=== PATIENT | male | born 1950 | race Caucasian/White ===

== ENCOUNTER 2018-05-10 16:35 | Inpatient (IN) | payer OTHER ==
--- NOTE | 2018-05-10 17:22 | PDOC ---
Attending Attestation - HPI HPI: 05/10/18 18:00 The patient is a 67 year old female, with a significant past medical history of AFib (off of Warfarin for the past week), CVA (x3 last was a hemorrhagic stroke 1 week ago with right sided deficits), DM, neuropathy, who presents to the emergency department via EMS from [facility] s/p fall. As per patients sister, he had a hemorrhagic stroke one week ago and was transferred from his care in [place], [place] to [facility]. While at the detention, patients sister notes he fell out of his wheelchair, hitting his head. While in the ED, the patient is behaving at his baseline, answering simple yes or no questions. Allergies: NKA Past surgical history: Valve replacement (?aortic bovine). Primary Care Physician: [facility] - Physicial Exam PE: 05/10/18 18:00 Constitutional: Awake, alert, oriented. No acute distress. Head: Normocephalic. Atraumatic Eyes: PERRL. EOMI. Conjunctivae are not pale. ENT: Mucous membranes are moist and intact. Posterior pharynx without exudates or erythema. Uvula midline. Neck: Supple. Full ROM. No lymphadenopathy. +Cardiovascular: Irregularly, irregular. Murmur from valve replacement. Pulmonary/Chest: No evidence of respiratory distress. Clear to auscultation bilaterally No wheezing, rales or rhonchi. Abdominal: Soft and non-distended. There is no tenderness. No rebound, guarding or rigidity. No organomegaly. No palpable masses. Good bowel sounds. Back: No CVA tenderness. Musculoskeletal: No edema. No cyanosis. No clubbing. No calf tenderness. Radial/pedal pulses are intact and 2+ bilaterally +Skin: Well healing sternotomy scar, without notable erythema or purulent discharge. Skin is warm and dry. No petechiae. No purpura. +Neurological: Behaving at baseline since CVA. Alert and oriented to person and place, Weakness greater in the right lower extremity than left lower extremity. Paralysis to the right upper extremity. Expressive aphasia. Able to answer basic questions. Psychiatric: Good eye contact. Normal interaction, affect and behavior. <Jai Ayon - Last Filed: 05/10/18 18:25> - Resident Resident Name: Kendall Henry - ED Attending Attestation I have performed the following: I have examined & evaluated the patient, The case was reviewed & discussed with the resident, I agree w/resident's findings & plan, Exceptions are as noted - Critical Care Time Total Critical Care Time: 45 Critical Care Statement: The care of this patient involved high complexity decision making to prevent further life threatening deterioration of the patient 's condition and/or to evaluate & treat vital organ system(s) failure or risk of failure. - Medical Decision Making 05/10/18 17:21 I, Dr. Anjali Crisostomo, DO, attest that this document has been prepared under my direction and personally reviewed by me in its entirety. I further attest, that it accurately reflects all work, treatment, procedures and medical decision -making performed by me. 05/10/18 17:33 a/p: 67yo male with recent intracranial hemorrhage and hx of CAD/CABG/valve replacement and hx of cva in the past presents after a fall out of his wheelchair -sister at the bedside who states pt at baseline ms -no new neuro symptoms -pt denies cp/sob -denies abd pain -no mendez -no n/v/d/dysuria -pt with difficulty with speech, weakness to b/l LE R>L, FROM of LUE, paralysis of RUE -will send for head ct to [facility] for closed head injury -will send labs -ekg -cxr -ua -will monitor and reassess -discussed the plan with the sister who agrees with the plan 05/10/18 19:[address] shows blood - call placed to [facility] to obtain prior ct results to compare call placed to Dr. Phoenix- case discussed who recommends involving neurosx 05/10/18 19:[address] Valenzuela who will review the images and call us back 05/10/18 19:25 case again discussed with Dr Valenzuela who recommends MRI brain for poss mass underlying pt also with QI - prior cr 1 week ago was 0.77 will admit for ivf hdyraiton, neurosx eval and neur eval microblog sent to [facility] 05/10/18 20:41 resident discussed the case with [facility] who accepts pt to service <Anjali Crisostomo - Last Filed: 05/10/18 20:42> Heart Score/ECG Review - ECG Intrepretation Comment:: 05/10/18 17:21 afib at 86, nl axis, t wave inversions lateral leads and i/avl, abnl ekg <Anjali Crisostomo - Last Filed: 05/10/18 20:42> Attestations - Attestations 05/10/18 18:03 Documentation prepared by Jai Ayon, acting as medical staff services coordinator for Anjali Crisostomo DO. <Jai Ayon - Last Filed: 05/10/18 18:25>
--- NOTE | 2018-05-10 17:28 | PDOC ---
History of Present Illness - General Chief Complaint: Injury Stated Complaint: FALL Time Seen by Provider: 05/10/18 17:05 - History of Present Illness Initial Comments: The patient is a 67M w/ a recent history of hemorrhagic stroke 1 week ago as well as recent heart valve replacement (bovine) who presents for evaluation s/p fall from recliner today at [facility]. The patient's sister reports that the patient has residual aphasia (only able to say yes/no) and R sided weakness. Per the sister, the patient says yes to most questions and may not mean yes; however, when the patient says no, it is more often accurate. The sister reports that since the time of the CVA and now 05/10/18 22:05 Past History - Past Medical History Allergies/Adverse Reactions: Allergies Allergy/AdvReac Type Severity Reaction Status Date / Time No Known Drug Allergies Allergy Verified 05/10/18 17:18 Home Medications: Ambulatory Orders Acetaminophen 650 mg PO Q6H PRN 05/10/18 Albuterol 2.5/Ipratropium 0.5 [Duoneb -] 1 neb IH QID 05/10/18 Amlodipine Besylate [Norvasc -] 10 mg PO DAILY 05/10/18 Aspirin [Aspirin EC] 81 mg PO DAILY 05/10/18 Atorvastatin Ca [Lipitor] 80 mg PO HS 05/10/18 Calcium Carbonate [Calcium Antacid] 300 mg PO Q6H PRN 05/10/18 Chlorhexidine Gluconate [Peridex -] 15 ml MM BID 05/10/18 Docusate Sodium [Colace] 100 mg PO TID 05/10/18 Ferrous Sulfate 325 mg PO BID 05/10/18 Furosemide [Lasix] 40 mg PO DAILY 05/10/18 Insulin Glargine,Hum.rec.anlog [Lantus Solostar] 40 unit SQ HS 05/10/18 Insulin Lispro [Humalog] 0 unit SQ TIDCM PRN 05/10/18 Labetalol HCl 300 mg PO TID 05/10/18 Lisinopril [Prinivil] 20 mg PO DAILY 05/10/18 Magnesium Hydroxide [Milk of Magnesia] 30 ml PO HS PRN 05/10/18 Melatonin 3 mg PO HS PRN 05/10/18 Nicotine [Nicotine Patch 7 mg/24 hr] 1 each TD DAILY 05/10/18 Oxycodone HCl 5 mg PO Q4H PRN 05/10/18 Pantoprazole Sodium 40 mg PO DAILY 05/10/18 Polyethylene Glycol 3350 [Miralax (For Daily Use) -] 17 gm PO DAILY 05/10/18 Pregabalin [Lyrica -] 50 mg PO DAILY 05/10/18 Simethicone 80 mg PO QID PRN 05/10/18 Sodium Chloride [Saline Mist] 2 sprays NS BID 05/10/18 Tramadol HCl 50 mg PO Q6H PRN 05/10/18 Zinc Oxide 20% Topical Oint 0 gm NR BID 05/10/18 Anemia: Yes (iron deficiecy) COPD: No CHF: No Diabetes: Yes GI Disorders: Yes (gerd) HTN: Yes Other medical history: chronic gingivitis. nicotine dependence, dermatitis - Suicide/Smoking/Psychosocial Hx Smoking History: Never smoked Have you smoked in the past 12 months: No Information on smoking cessation initiated: No Hx Alcohol Use: No Drug/Substance Use Hx: No Substance Use Type: None Review of Systems - Review of Systems Able to Perform ROS?: No (aphasia) Is the patient limited Indonesian proficient: No *Physical Exam - Vital Signs Last Vital Signs Temp Pulse Resp BP Pulse Ox 97.6 F 73 16 115/68 95 05/10/18 16:38 05/10/18 16:38 05/10/18 16:38 05/10/18 16:38 05/10/18 16:38 - Physical Exam Comments: GENERAL: Awake, alert, and fully oriented, in no acute distress HEAD: No signs of trauma, normocephalic, atraumatic EYES: PERRLA, EOMI, sclera anicteric, conjunctiva clear ENT: Hearing grossly normal, nares patent, oropharynx clear without exudates. Moist mucosa NECK: Normal ROM, supple LUNGS: No distress, speaks full sentences, clear to auscultation bilaterally HEART: Regular rate and rhythm, normal S1 and S2, no murmurs, rubs or gallops, peripheral pulses normal and equal bilaterally ABDOMEN: Soft, nontender, normoactive bowel sounds. No guarding, no rebound EXTREMITIES : Normal inspection, Normal range of motion, no edema. No clubbing or cyanosis NEUROLOGICAL: Cranial nerves II through XII grossly intact. Normal speech, normal gait, no focal sensorimotor deficits SKIN: Warm, Dry, normal turgor, no rashes or lesions noted 05/10/18 18:18 ED Treatment Course - LABORATORY CBC & Chemistry Diagram: 05/11/18 06:20 05/11/18 06:20 - RADIOLOGY Radiology Studies Ordered: Category Date Time Status HEAD CT WITHOUT CONTRAST [CT] Stat CT Scan 05/10/18 17:18 Ordered CHEST X-RAY PORTABLE* [RAD] Stat Radiology 05/10/18 17:18 Ordered Medical Decision Making - Medical Decision Making The patient is a 67M w/ a history of hemorragic stroke 1 wk ago, s/p recent valve replacement, who presents for evaluation s/p fall from recliner today at [facility] Patient w/ residual R weakness s/p stroke CMP, CBC, T/s, Coags, Lactate CT head w/o Patient currently able to answer yes/no. Per patient family patient responds yes frequently, but when he responds no it is generally a true no 05/10/18 17:26 Cr 2.0, likely QI No leukocytosis lytes wnl Hypglyemic 226 Lactate 1.[address] head still pending 05/10/18 18:22 CT w/ evidence if ICH, possible non-acute 05/10/18 18:50 Consult to Neurology and NSGY placed Plan for admission Will obtain MRI per NSGY 05/10/18 19:55 Spoke w/ sister of patient Marie Feldman to fill out MRI questionaire/consent 05/10/18 20:24 Dispo: Admit *DC/Admit/Observation/Transfer Diagnosis at time of Disposition: Intracranial bleed Fall Qualifiers: Encounter type: initial encounter Qualified Code(s): W19.XXXA - Unspecified fall, initial encounter - Discharge Dispostion Condition at time of disposition: Guarded Decision to Admit order: Yes - Referrals - Patient Instructions - Post Discharge Activity
[2018-05-10 17:36] LABS: HEMATOCRIT 33.1 % (35.4-49); MCH 27.7 pg (25.7-33.7); MCHC 33.1 g/dl (32.0-35.9); MEAN CELL VOLUME 83.8 fl (80-96); MEAN PLT VOLUME 9.5 fl (7.5-11.1); PLATELET COUNT 214 K/MM3 (134-434); RBC 3.95 M/mm3 (4.00-5.60); RDW 14.4 % (11.9-15.9); WHITE BLOOD COUNT 6.2 K/mm3 (4.0-10.0)
[2018-05-10 17:55] LABS: INR 1.06 (0.83-1.09); PROTHROMBIN TIME (PATIENT) 12.5 SEC (9.7-13.0)
[2018-05-10 17:58] LABS: ACTIVATED PTT 26.2 SECONDS (25.2-36.5)
[2018-05-10 18:08] LABS: ALK PHOS 164 U/L (45-117); ANION GAP 9 MMOL/L (8-16); BILIRUBIN,TOTAL 0.4 mg/dL (0.2-1); BLOOD UREA NITROGEN 56 mg/dL (7-18); CALCIUM 8.8 mg/dL (8.5-10.1); CHLORIDE 102 mmol/L (98-107); CO2 26 mmol/L (21-32); GLUCOSE,RANDOM 226 mg/dL (74-106); POTASSIUM 4.8 mmol/L (3.5-5.1); SGOT/AST 34 U/L (15-37); SGPT/ALT 26 U/L (13-61); SODIUM 136 mmol/L (136-145); TOT PROT 6.4 g/dl (6.4-8.2)
[2018-05-10] MEDS ORDERED: SODIUM CHLORIDE 0.9% 500 ML INFUS.BAG IV ONE (19:28)
--- NOTE | 2018-05-10 20:35 | HP ---
CHIEF COMPLAINT: PCP: HISTORY OF PRESENT ILLNESS: This is a 67 year old male, from [facility] with a significant past medical history of AFib (off of Warfarin for the past week), CVA (x3 last was a hemorrhagic stroke 1 week ago with right sided deficits), DM, Neuropathy. Who presents to the ED via EMS s/p fall. Patient is lethargic unable to provide HPI. Per the ED record: As per patients sister, he had a hemorrhagic stroke one week ago and was transferred from his care in [place], [place] to [facility]. While at the [facility], patients sister notes he fell out of his wheelchair, hitting his head. While in the ED, the patient is behaving at his baseline, answering simple yes or no questions. ER course was notable for: (1) CT Head- small amount of acute blood within the occipital horn of the left ventricle. Several acute/subacute left occipital cortical infarcts noted medially, a right parieto-occipital cortical infarct seen medially may be subacute or chronic. No extra-axial fuid collection. no gross soft tissue mass lesion, no obstructive hydrocephalus (2) BUN 56, Cr 2 (3) Glucose 226 Recent Travel: None PAST MEDICAL HISTORY: See HPI PAST SURGICAL HISTORY: Valve replacement (?aortic bovine). Social History: Smoking: unknown Alcohol: unknown Drugs: unnknown Resides at [facility], Family History: Unable to obtain Allergies No Known Drug Allergies Allergy (Verified 05/10/18 17:18) HOME MEDICATIONS: Home Medications Medication Instructions Recorded Acetaminophen 650 mg PO Q6H PRN 05/10/18 Albuterol 2.5/Ipratropium 0.5 1 neb IH QID 05/10/18 [Duoneb -] Amlodipine Besylate [Norvasc -] 10 mg PO DAILY 05/10/18 Aspirin [Aspirin EC] 81 mg PO DAILY 05/10/18 Atorvastatin Ca [Lipitor] 80 mg PO HS 05/10/18 Calcium Carbonate [Calcium Antacid] 300 mg PO Q6H PRN 05/10/18 Chlorhexidine Gluconate [Peridex -] 15 ml MM BID 05/10/18 Docusate Sodium [Colace] 100 mg PO TID 05/10/18 Ferrous Sulfate 325 mg PO BID 05/10/18 Furosemide [Lasix] 40 mg PO DAILY 05/10/18 Insulin Glargine,Hum.rec.anlog 40 unit SQ HS 05/10/18 [Lantus Solostar] Insulin Lispro [Humalog] 0 unit SQ TIDCM PRN 05/10/18 Labetalol HCl 300 mg PO TID 05/10/18 Lisinopril [Prinivil] 20 mg PO DAILY 05/10/18 Magnesium Hydroxide [Milk of 30 ml PO HS PRN 05/10/18 Magnesia] Melatonin 3 mg PO HS PRN 05/10/18 Nicotine [Nicotine Patch 7 mg/24 1 each TD DAILY 05/10/18 hr] Oxycodone HCl 5 mg PO Q4H PRN 05/10/18 Pantoprazole Sodium 40 mg PO DAILY 05/10/18 Polyethylene Glycol 3350 [Miralax 17 gm PO DAILY 05/10/18 (For Daily Use) -] Pregabalin [Lyrica -] 50 mg PO DAILY 05/10/18 Simethicone 80 mg PO QID PRN 05/10/18 Sodium Chloride [Saline Mist] 2 sprays NS BID 05/10/18 Tramadol HCl 50 mg PO Q6H PRN 05/10/18 Zinc Oxide 20% Topical Oint 0 gm NR BID 05/10/18 REVIEW OF SYSTEMS Lethargic- Unresponsive CONSTITUTIONAL: Absent: fever, chills, diaphoresis, generalized weakness, malaise, loss of appetite, weight change HEENT: Absent: rhinorrhea, nasal congestion, throat pain, throat swelling, difficulty swallowing, mouth swelling, ear pain, eye pain, visual changes CARDIOVASCULAR: Absent: chest pain, syncope, palpitations, irregular heart rate, lightheadedness , peripheral edema RESPIRATORY: Absent: cough, shortness of breath, dyspnea with exertion, orthopnea, wheezing, stridor, hemoptysis GASTROINTESTINAL: Absent: abdominal pain, abdominal distension, nausea, vomiting, diarrhea, constipation, melena, hematochezia GENITOURINARY: Absent: dysuria, frequency, urgency, hesitancy, hematuria, flank pain, genital pain MUSCULOSKELETAL: Absent: myalgia, arthralgia, joint swelling, back pain, neck pain SKIN: Absent: rash, itching, pallor HEMATOLOGIC/IMMUNOLOGIC: Absent: easy bleeding, easy bruising, lymphadenopathy, frequent infections ENDOCRINE: Absent: unexplained weight gain, unexplained weight loss, heat intolerance, cold intolerance NEUROLOGIC: Absent: headache, focal weakness or paresthesias, dizziness, unsteady gait, seizure, mental status changes, bladder or bowel incontinence PSYCHIATRIC: Absent: anxiety, depression, suicidal or homicidal ideation, hallucinations. PHYSICAL EXAMINATION Vital Signs - 24 hr 05/10/18 05/10/18 16:38 19:41 Temperature 97.6 F Pulse Rate 73 Respiratory 16 Rate Blood Pressure 115/68 O2 Sat by Pulse 95 95 Oximetry (%) GENERAL: Lethargic, appears in no acute distress. HEAD: Normal with no signs of trauma. EYES: Pupils equal, round and reactive to light, sclera anicteric, conjunctiva clear. No lid lag. EARS, NOSE, THROAT: Ears normal, nares patent, oropharynx clear without exudates. Dry mucous membranes. NECK: Normal range of motion, supple without lymphadenopathy, JVD, or masses. LUNGS: Breath sounds coarse rhonchi to upper lobes. No wheezes, No accessory muscle use. HEART: Irregular rate and rhythm, systolic murmur, normal S1 and S2.No rub or gallop. ABDOMEN: Soft, nontender, not distended, normoactive bowel sounds, no guarding, no rebound, no masses. No hepatomegaly or splenomegaly. MUSCULOSKELETAL: Normal range of motion at all joints. No bony deformities or tenderness. No CVA tenderness. UPPER EXTREMITIES: 2+ pulses, warm, well-perfused. No cyanosis. No clubbing. No peripheral edema. LOWER EXTREMITIES: 2+ pulses, warm, well-perfused. No calf tenderness. No peripheral edema. NEUROLOGICAL: Cranial nerves II-XII intact. lethargic speech not assessed. gait not observed. PSYCHIATRIC: Lethargic. unable to assess baseline. SKIN: Warm, dry, normal turgor, no rashes or lesions noted, normal capillary refill. Laboratory Results - last 24 hr 05/10/18 05/10/18 05/10/18 16:15 16:15 16:15 WBC 6.2 RBC 3.95 L Hgb 11.0 L Hct 33.1 L MCV 83.8 MCH 27.7 MCHC 33.1 RDW 14.4 Plt Count 214 MPV 9.5 PT with INR 12.50 INR 1.06 PTT (Actin FS) 26.2 Sodium 136 Potassium 4.8 Chloride 102 Carbon Dioxide 26 Anion Gap 9 BUN 56 H Creatinine 2.0 H Creat Clearance w eGFR 33.49 Random Glucose 226 H Lactic Acid Calcium 8.8 Total Bilirubin 0.4 AST 34 ALT 26 Alkaline Phosphatase 164 H Total Protein 6.4 Albumin 3.0 L Blood Type Antibody Screen 05/10/18 05/10/18 16:15 16:55 WBC RBC Hgb Hct MCV MCH MCHC RDW Plt Count MPV PT with INR INR PTT (Actin FS) Sodium Potassium Chloride Carbon Dioxide Anion Gap BUN Creatinine Creat Clearance w eGFR Random Glucose Lactic Acid 1.2 Calcium Total Bilirubin AST ALT Alkaline Phosphatase Total Protein Albumin Blood Type A POSITIVE Antibody Screen Negative ASSESSMENT/PLAN: 67 y/o man Admitted to Telemetry s/p Fall, Acute blood in left ventricle, Acute/ Subacute Cortical Infarcts for further evaluation of their emergent condition. Plan: Admit to Telemetry Appreciate Neurosurgery and Neurology consults Brain MRI-pending HOB elevated 30 degrees Fall precautions Monitor CBC, BMP Visit type - Emergency Visit Emergency Visit: Yes ED Registration Date: 05/10/18 Care time: The patient presented to the Emergency Department on the above date and was hospitalized for further evaluation of their emergent condition. - New Patient This patient is new to me today: Yes Date on this admission: 05/10/18 - Critical Care Critical Care patient: No
[2018-05-11 06:51] LABS: HEMATOCRIT 30.3 % (35.4-49); MCH 27.3 pg (25.7-33.7); MCHC 32.9 g/dl (32.0-35.9); MEAN CELL VOLUME 82.8 fl (80-96); MEAN PLT VOLUME 9.1 fl (7.5-11.1); MONO % 9.2 % (3.8-10.2); NEUT % 62.8 % (42.8-82.8); PLATELET COUNT 173 K/MM3 (134-434); RBC 3.66 M/mm3 (4.00-5.60); RDW 13.8 % (11.9-15.9); WHITE BLOOD COUNT 7.2 K/mm3 (4.0-10.0)
[2018-05-11 07:08] LABS: ANION GAP 7 MMOL/L (8-16); BLOOD UREA NITROGEN 46 mg/dL (7-18); CALCIUM 8.5 mg/dL (8.5-10.1); CHLORIDE 110 mmol/L (98-107); CO2 24 mmol/L (21-32); CREATININE 1.1 mg/dL (0.55-1.3); GLUCOSE,RANDOM 135 mg/dL (74-106); POTASSIUM 4.2 mmol/L (3.5-5.1); SODIUM 141 mmol/L (136-145)
--- NOTE | 2018-05-11 08:54 | CON.NEURO ---
Consult - Alcohol/Substance Use Hx Alcohol Use: No - Smoking History Smoking history: Never smoked Have you smoked in the past 12 months: No Home Medications - Allergies Allergies/Adverse Reactions: Allergies Allergy/AdvReac Type Severity Reaction Status Date / Time No Known Drug Allergies Allergy Verified 05/10/18 17:18 - Home Medications Home Medications: Ambulatory Orders Acetaminophen 650 mg PO Q6H PRN 05/10/18 Albuterol 2.5/Ipratropium 0.5 [Duoneb -] 1 neb IH QID 05/10/18 Amlodipine Besylate [Norvasc -] 10 mg PO DAILY 05/10/18 Aspirin [Aspirin EC] 81 mg PO DAILY 05/10/18 Atorvastatin Ca [Lipitor] 80 mg PO HS 05/10/18 Calcium Carbonate [Calcium Antacid] 300 mg PO Q6H PRN 05/10/18 Chlorhexidine Gluconate [Peridex -] 15 ml MM BID 05/10/18 Docusate Sodium [Colace] 100 mg PO TID 05/10/18 Ferrous Sulfate 325 mg PO BID 05/10/18 Furosemide [Lasix] 40 mg PO DAILY 05/10/18 Insulin Glargine,Hum.rec.anlog [Lantus Solostar] 40 unit SQ HS 05/10/18 Insulin Lispro [Humalog] 0 unit SQ TIDCM PRN 05/10/18 Labetalol HCl 300 mg PO TID 05/10/18 Lisinopril [Prinivil] 20 mg PO DAILY 05/10/18 Magnesium Hydroxide [Milk of Magnesia] 30 ml PO HS PRN 05/10/18 Melatonin 3 mg PO HS PRN 05/10/18 Nicotine [Nicotine Patch 7 mg/24 hr] 1 each TD DAILY 05/10/18 Oxycodone HCl 5 mg PO Q4H PRN 05/10/18 Pantoprazole Sodium 40 mg PO DAILY 05/10/18 Polyethylene Glycol 3350 [Miralax (For Daily Use) -] 17 gm PO DAILY 05/10/18 Pregabalin [Lyrica -] 50 mg PO DAILY 05/10/18 Simethicone 80 mg PO QID PRN 05/10/18 Sodium Chloride [Saline Mist] 2 sprays NS BID 05/10/18 Tramadol HCl 50 mg PO Q6H PRN 05/10/18 Zinc Oxide 20% Topical Oint 0 gm NR BID 05/10/18 Physical Exam-Neuro Vital Signs: Vital Signs Temperature 98.0 F 05/11/18 04:28 Pulse Rate 85 05/11/18 04:28 Respiratory Rate 20 05/11/18 04:28 Blood Pressure 118/65 05/11/18 04:28 O2 Sat by Pulse Oximetry (%) 95 05/11/18 04:28 Labs: CBC, BMP 05/11/18 06:20 05/11/18 06:20 INR, PTT INR 1.06 (0.83-1.09) 05/10/18 16:15 Assessment/Plan cc Recent hemorrhage and fall from Wheel chair HPI 67 year old male history of DM, Neuropathy, had recent brainbleed, he also have history of atrial fibrillation. Patient fell out of wheel chair. Patient is sleepy today, there is no documentation of seizure or fever. He has ct scan done showed left basal ganglia bleed and old right parietal lobe infarct. Patient is not waking up when I saw him. He would say , yes and no to nursing earlier and started to cry. Past Medical History Valve replacement (?aortic bovine). DM, HTN, Brain bleed and old stroke Social History, FH, ROS reviewed in chart No Known Drug Allergies Allergy (Verified 05/10/18 17:18) HOME MEDICATIONS: Home Medications Medication Instructions Recorded Acetaminophen 650 mg PO Q6H PRN 05/10/18 Albuterol 2.5/Ipratropium 0.5 1 neb IH QID 05/10/18 [Duoneb -] Amlodipine Besylate [Norvasc -] 10 mg PO DAILY 05/10/18 Aspirin [Aspirin EC] 81 mg PO DAILY 05/10/18 Atorvastatin Ca [Lipitor] 80 mg PO HS 05/10/18 Calcium Carbonate [Calcium Antacid] 300 mg PO Q6H PRN 05/10/18 Chlorhexidine Gluconate [Peridex -] 15 ml MM BID 05/10/18 Docusate Sodium [Colace] 100 mg PO TID 05/10/18 Ferrous Sulfate 325 mg PO BID 05/10/18 Furosemide [Lasix] 40 mg PO DAILY 05/10/18 Insulin Glargine,Hum.rec.anlog 40 unit SQ HS 05/10/18 [Lantus Solostar] Insulin Lispro [Humalog] 0 unit SQ TIDCM PRN 05/10/18 Labetalol HCl 300 mg PO TID 05/10/18 Lisinopril [Prinivil] 20 mg PO DAILY 05/10/18 Magnesium Hydroxide [Milk of 30 ml PO HS PRN 05/10/18 Magnesia] Melatonin 3 mg PO HS PRN 05/10/18 Nicotine [Nicotine Patch 7 mg/24 1 each TD DAILY 05/10/18 hr] Oxycodone HCl 5 mg PO Q4H PRN 05/10/18 Pantoprazole Sodium 40 mg PO DAILY 05/10/18 Polyethylene Glycol 3350 [Miralax 17 gm PO DAILY 05/10/18 (For Daily Use) -] Pregabalin [Lyrica -] 50 mg PO DAILY 05/10/18 Simethicone 80 mg PO QID PRN 05/10/18 Sodium Chloride [Saline Mist] 2 sprays NS BID 05/10/18 Tramadol HCl 50 mg PO Q6H PRN 05/10/18 Zinc Oxide 20% Topical Oint 0 gm NR BID 05/10/18 Neurological Examination( Limited Neuro exam) sleepy, and have been open his eye to commnad, but would not engage in talking. ( earlier morning he was answering yes and no to nurses and started crying) His vital is normal, no neck stiffness pupils is reactive, small, mild right facial palsy right sided hemiparesis ct head reviewed Assessment: left basal ganglia bleed with intra ventricular extension. Patient was in NH was brought because of fall. There is no evidence of seizure or meningitis. Dr Hickman ( Neurosurgery ) is on case. Plan: 1. I would repeat a urgent ct head 2. Urgent Neurosurgery consult, if not seen patient need to be monitored in ICU 3. Spoke to nursing 4. I would also obtain and eeg for subclinical status 5. npo, speech consult 6. continue current care Thanking you so much Avelino Phoenix MD
[2018-05-11] MEDS ORDERED: DEXAMETHASONE SOD PHOSPHATE 4 MG/1 ML VIAL IVPUSH SCH (10:15)
[2018-05-11] MEDS ORDERED: levETIRAcetam 500 MG/5 ML INJECTION VIAL IVPB SCH (10:30)
--- NOTE | 2018-05-11 10:55 | PN ---
Progress Note, Physician Chief Complaint: Intracranial hemorrhage History of Present Illness: NAD pt somnolent - Current Medication List Current Medications: Active Medications Dexamethasone Sodium Phosphate (Decadron Injection -) 4 mg IVPUSH Q8H-IV HIEN Last Admin: 05/11/18 10:45 Dose: 4 mg Levetiracetam (Keppra Injection -) 500 mg IVPB BID HIEN Last Admin: 05/11/18 10:45 Dose: 500 mg - Objective Vital Signs: Vital Signs Temperature 98.0 F 05/11/18 04:28 Pulse Rate 85 05/11/18 04:28 Respiratory Rate 20 05/11/18 04:28 Blood Pressure 118/65 05/11/18 04:28 O2 Sat by Pulse Oximetry (%) 95 05/11/18 04:28 Constitutional: Yes: Well Nourished, No Distress, Calm Labs: CBC, BMP 05/11/18 06:20 05/11/18 06:20 INR, PTT INR 1.06 (0.83-1.09) 05/10/18 16:15
--- NOTE | 2018-05-11 11:18 | CONSULT ---
Admitting History and Physical - Primary Care Physician PCP: Adam Dorsey - Admission History of Present Illness: 67 y/o man Admitted to Telemetry s/p Fall, Acute blood in left ventricle, Acute/ Subacute Cortical Infarcts admitted following fall out of w/c at CT. Per patient's sister, pt has Aphasia with yes/no confusion. He was able to participate well in speech tx yesterday at [facility] and read words aloud. History Source: Family Member, Medical Record Limitations to Obtaining History: Clinical Condition, Other (Aphasia) - Smoking History Smoking history: Never smoked Have you smoked in the past 12 months: No - Alcohol/Substance Use Hx Alcohol Use: No History - Admission Reason For Visit: INTRACRANIAL HEMORRHAGE, FALL - Diagnostics X-ray: Report Reviewed CT Scan: Report Reviewed MRI: Report Reviewed - General Mental Status: Awake and Alert Attention: Intact Ability to Follow Directions: Fair (Pt follows 1 stage commands occasionally although he appears to comprehend more than he demonstates. Yes/No confusion which is inconsistent and unreliable. Pt unaware of errors.) - Hearing Hearing: Functional Speech Evaluation - Communication Primary Language: GUAMANIAN Communication: Yes: Aphasia Oral Expression Ability: Yes: Severe Impairment - Speech Production Apraxia: Yes Able to Make Needs Known: Yes: Severely Impaired Intelligibility: Yes: Severely Impaired - Speech Characteristics Voice Loudness: Normal Voice Pitch: Yes: Normal Voice Phonatory-based Quality: Yes: Normal Speech Pattern: Impaired Speech Clarity: < 25% Nasal Resonance: Normal Articulation: Yes: Imprecise - Language/Auditory Comprehension Follows: Yes: 1 Stage Simple Commands (25% for me) Observation: Able to respond to yes/no queries: No, Yes/No Confusion: Yes, Comprehends Conversational Speech: Yes (simple, short sentences and social speech), Benefits from Slow Speech: Yes, Benefits from Repetiton: Yes - Language/Verbal Expression Aphasia: Yes: Nonfluent (Able to repeat.Jargon/neologisms upon confrontation naming.), Paraphrasic Errors, Neologisms, Apraxia Able to Respond to Simple Queries: Yes: Severely Impaired Able to Communicate Wants and Needs: Yes: Severely Impaired Functional Communication Status: Yes: Severely Impaired Aware of Errors: No Attempts to Correct Errors: No Use of Gestures: No - Swallow Evaluation/Bedside Assessment Current Nutritional Intake: NPO (NPO for surgery today.) Oral Secretions: Yes: WFL Facial Symmetry on Retraction: Facial Droop Right Sensation: Reduced Right Jaw Position: Closed at Rest Lingual Movement: Symmetric, Reduced Protrusion (apraxia) Lingual Speed of Movement: Reduced Lingual Movement Strgth Against Opposition: Reduced Recommendations - Speech Evaluation, Impression/Plan Impression: Severe Aphasia with expressive and receptive deficits. Y/N confusions. I believe he is comprehending more than he can demonstrate. NPO for Sx today. No drooling/vocal wetness. Swallows saliva. - Disposition Discharge to: Rehabilitation Center, Retirement Facility, To be Determined Recommendations: Other (Swallow evaluation again post surgery)
[2018-05-11] MEDS ORDERED: GENTAMICIN SO4 80 MG/2 ML VIAL ONE (12:58)
[2018-05-11] MEDS ORDERED: THROMBIN (BOVINE) 5,000 UNIT VIAL TP ONE ×3 (12:59→15:52)
[2018-05-11] MEDS ORDERED: ceFAZolin SODIUM 1 GM VIAL IVPB ONE ×2 (14:32→15:32)
[2018-05-11] MEDS ORDERED: ceFAZolin SODIUM 1 GM VIAL ONE ×2 (14:34→14:39)
[2018-05-11] MEDS ORDERED: LIDOCAINE HCL/PF 2% SDV 5ML VIAL ONE (14:34)
[2018-05-11] MEDS ORDERED: ETOMIDATE 20 MG/10 ML AMPUL IVPUSH ONE (14:34)
[2018-05-11] MEDS ORDERED: PROPOFOL 20 ML ONE (14:35)
[2018-05-11] MEDS ORDERED: ROCURONIUM BROMIDE 50 MG/5 ML VIAL ONE (14:35)
[2018-05-11] MEDS ORDERED: SUCCINYLCHOLINE CHLORIDE 200 MG/10 ML VIAL ONE (14:37)
[2018-05-11] MEDS ORDERED: LIDOCAINE 1%/EPI 1:100000 (50 ML MULTI DOSE VIAL) INF ONE ×2 (14:38→15:48)
[2018-05-11] MEDS ORDERED: VANCOMYCIN 1,000 MG VIAL (RESTRICTED TO ID ONLY) ONE (14:40)
[2018-05-11] MEDS ORDERED: GENTAMICIN SO4 80 MG/2 ML VIAL IVPB ONE ×2 (14:52→15:52)
[2018-05-11] MEDS ORDERED: BACITRACIN 50,000 UNITS VIAL TP ONE ×2 (14:52→15:52)
[2018-05-11] MEDS ORDERED: HYDROGEN PEROXIDE 473 ML PO ONE ×2 (14:52→15:52)
--- NOTE | 2018-05-11 14:59 | EKG ---
Test Reason : Blood Pressure : / mmHG Vent. Rate : 086 BPM Atrial Rate : 084 BPM P-R Int : 000 ms QRS Dur : 100 ms QT Int : 384 ms P-R-T Axes : 000 027 158 degrees QTc Int : 459 ms ATRIAL FIBRILLATION T WAVE ABNORMALITY, CONSIDER LATERAL ISCHEMIA ABNORMAL ECG NO PREVIOUS ECGS AVAILABLE Confirmed by REBA DOMINGUEZ, DEYANIRA ([id number]) on 05/11/2018 2:59:36 PM Referred By: Confirmed By:DEYANIRA BRITTON MD
[2018-05-11] MEDS ORDERED: LABETALOL HCL 5 MG/1 ML (100MG/20 ML VIAL) ONE ×2 (17:21→17:25)
[2018-05-11] MEDS ORDERED: ONDANSETRON 4 MG/2 ML VIAL IVPUSH PRN ×2 (17:31→17:57)
[2018-05-11] MEDS ORDERED: ACETAMINOPHEN WITH CODEINE 300MG/30MG TABLET PO PRN (17:31)
[2018-05-11] MEDS ORDERED: LABETALOL HCL INJECTION 1,000 MG in SODIUM CHLORIDE 800 ML IV SCH (17:45)
--- NOTE | 2018-05-11 17:45 | OP ---
Operative Note - Note: Operative Date: 05/11/18 Pre-Operative Diagnosis: Thalamic hemorrhagic mass Operation: Left frontal craniotomy, excision of thalamic hermorrhagic mass Post-Operative Diagnosis: Same as Pre-op Surgeon: Yoel Valenzuela Bulb Farmworker: Andre Marquez Anesthesiologist/CALL CENTER COORDINATOR: Chandler Mcguire Anesthesia: General Specimens Removed: Thalamic clot/mass Estimated Blood Loss (mls): 25 Drains, Volume Out (mls): 750 (Smith) Fluid Volume Replaced (mls): 1,700 Operative Report Dictated: Yes
--- NOTE | 2018-05-11 17:46 | SURG ---
Surgery Success Coach Note Success Coach: Andre Marquez PA-C Date of Service: 05/11/18 Diagnosis: Thalamic hemorrhagic mass Procedure: Left frontal craniotomy, excision of thalamic hermorrhagic mass I was present for the entirety of the operative procedure. For further detail, please refer to operative report. Visit type - Case Type Case Type: ED Admission - Emergency Emergency Visit: Yes ED Registration Date: 05/10/18 Care time: The patient presented to the Emergency Department on the above date and was hospitalized for further evaluation of their emergent condition. - New patient This patient is new to me today: Yes Date on this admission: 05/11/18
--- NOTE | 2018-05-11 17:49 | PROC ---
Procedure Note Procedure: Prior too surgical procedure PA placed the following under sterile technique: Right radial arterial line Smith catheter 18ga angiocath right forearm
[2018-05-11] MEDS ORDERED: LACTATED RINGERS SOLUTION 1,000 ML IV SCH (18:00)
[2018-05-11] MEDS ORDERED: ONDANSETRON 4 MG/2 ML VIAL ONE (18:52)
--- NOTE | 2018-05-11 20:46 | CONSULT ---
Consultation: REQUESTING PROVIDER: Dr. Taveras CONSULT REQUEST: We have been asked to medically evaluate this patient for management s/p Left frontal craniotomy. HISTORY OF PRESENT ILLNESS: Unable to obtain information from patient due to medical condition Patient is a 67 year old male with a PMHx of Atrial fibrillation (on Warfarin but taken off a week prior to the visit), CVA x3, IDDMII with neuropathy who was BIBEMS from [facility] s/p unwitmessed mechanical fall from recliner , hitting his head. According to patients family, he has a history of hemorrhagic stroke one week ago in [place] and was then transferred to [facility]. Patient usually non-verbal and only answers yes or no questions. Otherwise, patient has had no acute behavioral changes. In the ED, patient had head CT done that showed a small amount of acute blood within the occipital horn of the left ventricle. MRI revealed left thalamic subacute hematoma bulging into third ventricle with hematoma vasogenic edema. Intraventricular hemorrhage with fluid in the occipital horn of left lateral ventricle. Neurosurgery consulted and decided to perform left frontal craniotomy . Patient currently POD #0 s/p Left frontal craniotomy, excision of thalamic hermorrhagic mass with no complications and EBL of 25cc. Patient transferred to ICU for further monitoring REVIEW OF SYSTEMS: Unable to obtain PHYSICAL EXAMINATION Vital Signs - 24 hr 05/10/18 05/10/18 05/10/18 19:41 20:40 23:12 Temperature Pulse Rate Pulse Rate [ 92 H Left Radial] Respiratory 18 Rate Blood Pressure Blood Pressure 112/59 L [Right Arm] O2 Sat by Pulse 95 99 100 Oximetry (%) 05/11/18 05/11/18 05/11/18 04:28 09:00 10:00 Temperature 98.0 F 98.2 F Pulse Rate 85 91 H Pulse Rate [ Left Radial] Respiratory 20 20 18 Rate Blood Pressure 118/65 120/69 Blood Pressure [Right Arm] O2 Sat by Pulse 95 98 Oximetry (%) 05/11/18 05/11/18 05/11/18 17:43 17:55 18:10 Temperature 98 F Pulse Rate 82 87 85 Pulse Rate [ Left Radial] Respiratory 19 20 18 Rate Blood Pressure 156/80 189/93 H 171/60 H Blood Pressure [Right Arm] O2 Sat by Pulse 100 100 100 Oximetry (%) 05/11/18 05/11/18 05/11/18 18:25 18:40 18:45 Temperature Pulse Rate 86 84 87 Pulse Rate [ Left Radial] Respiratory 18 20 Rate Blood Pressure 177/72 H 181/85 H 156/88 Blood Pressure [Right Arm] O2 Sat by Pulse 99 99 Oximetry (%) 05/11/18 05/11/18 18:55 19:10 Temperature Pulse Rate 87 77 Pulse Rate [ Left Radial] Respiratory 20 22 H Rate Blood Pressure 156/88 147/65 Blood Pressure [Right Arm] O2 Sat by Pulse 100 99 Oximetry (%) GENERAL: Lethargic, agitated. HEAD: Surgical head dressing c/d/i with no drainage EYES: PERRL ENT: Dry mucous membranes. NECK: (-) lymphadenopathy, JVD, or masses. LUNGS: Breath sounds equal, clear to auscultation bilaterally and anteriorly. No accessory muscle use. HEART: Regular rate with Irregularly irregular rhythm, 3/5 systolic murmur. ABDOMEN: Soft, nontender, not distended, normoactive bowel sounds, no guarding, no rebound, no masses. No hepatomegaly or splenomegaly. MUSCULOSKELETAL: No CVA tenderness. UPPER EXTREMITIES: No peripheral edema. LOWER EXTREMITIES: No peripheral edema. NEUROLOGICAL: Unable to cooperate due to medical condition PSYCHIATRIC: uncooperative. Poor eye contact SKIN: Warm, dry, normal turgor, no rashes or lesions noted. Laboratory Results - last 24 hr 05/11/18 05/11/18 06:20 06:20 WBC 7.2 RBC 3.66 L Hgb 10.0 L Hct 30.3 L MCV 82.8 MCH 27.3 MCHC 32.9 RDW 13.8 Plt Count 173 MPV 9.1 Absolute Neuts (auto) 4.5 Neutrophils % 62.8 Lymphocytes % 24.0 Monocytes % 9.2 Eosinophils % 3.0 Basophils % 1.0 Nucleated RBC % 0 Sodium 141 Potassium 4.2 Chloride 110 H Carbon Dioxide 24 Anion Gap 7 L BUN 46 H Creatinine 1.1 Creat Clearance w eGFR > 60 Random Glucose 135 H Calcium 8.5 Active Medications Generic Name Dose Route Start Last Admin Trade Name Freq PRN Reason Stop Dose Admin Acetaminophen/Codeine Phosphate 1 tab 05/11/18 17:31 Tylenol # 3 - PO Q4H PRN PAIN LEVEL 1-5 Dexamethasone Sodium Phosphate 4 mg 05/12/18 02:00 Decadron Injection - IVPUSH Q8H-IV HIEN Docusate Sodium 100 mg 05/11/18 22:00 Colace - PO TID [facility] Fentanyl 50 mcg 05/11/18 17:57 05/11/18 18:25 Sublimaze Injection - IVPUSH 50 mcg [id number] PRN Administration PAIN-PACU ORDER X 4 DOSES ONLY Cefazolin Sodium 1 gm/ 50 mls @ 100 mls/hr 05/11/18 22:00 Dextrose IVPB 05/12/18 14:29 Q8H HIEN Labetalol HCl 1,000 mg/ Sodium 1,000 mls @ 120 mls/hr 05/11/18 17:45 18:45 Chloride IV 2 mg/min TITR HIEN 120 mls/hr Administration 2 MG/MIN Lactated Ringer's 1,000 mls @ 125 mls/hr 05/11/18 18:00 Lactated Ringers Solution IV ASDIR [facility] Levetiracetam 500 mg 05/11/18 22:00 Keppra Injection - IVPB BID [facility] Mupirocin 1 applic 05/11/18 22:00 Bactroban Ointment (For Decolonization) - NS 05/16/18 21:59 BID [facility] Ondansetron HCl 4 mg 05/11/18 17:31 Zofran Injection IVPUSH Q6H PRN NAUSEA Ondansetron HCl 4 mg 05/11/18 17:57 05/11/18 19:00 Zofran Injection IVPUSH 4 mg Q6H PRN Administration NAUSEA AND/OR VOMITING Pantoprazole Sodium 40 mg 05/12/18 10:00 Protonix Iv IVPUSH DAILY [facility] ASSESSMENT/PLAN: Patient is a 67 year old ,male who was BIBEMS from [place] s/p fall and was found to have Intraventricular hemorrhage. Patient now s/p Left frontal craniotomy, excision of thalamic hermorrhagic mass and sent to ICU for further monitoring and management. Intraventricular Hemorrhage s/p Left Frontal Craniotomy -POD #0 with no complications and EBL of 25cc -HOB 35 -Decadron 4mg Q8H -Fentanyl IVP and Tylenol for pain control -KEEP SBP <130. Continue Labetolol drip and titrate as needed -DVT prophylaxis -Keppra 500mg IVP BID for seizure prophylaxis -IV fluid with Lactated ringers @125cc/hr -Smith catheter management -Monitor I&O's -Incentive spirometer -100% 02 with Non-rebreather to wash out the nitrogen in the intracranial air -Maintain Spo2 >95% -Post Op repeat Head CT seen and read by Dr. Bianca SANTOS -BGM and ISS F/E/N -IV LR @125mls/hr -Electrolytes wnl -NPO Prophylaxis -Heparin 5000 units sq TID for DVT -Protonix for GI Disposition -Full code -Overnight ICU monitoring Dispo: We will continue to follow the patient. Thank you for this consultative opportunity. Makenzie Redmond [id number] Visit type - Emergency Visit Emergency Visit: Yes ED Registration Date: 05/10/18 Care time: The patient presented to the Emergency Department on the above date and was hospitalized for further evaluation of their emergent condition. - New Patient This patient is new to me today: Yes Date on this admission: 05/11/18 - Critical Care Critical Care patient: Yes Total Critical Care Time (in minutes): 45 Critical Care Statement: The care of this patient involved high complexity decision making to prevent further life threatening deterioration of the patient 's condition and/or to evaluate & treat vital organ system(s) failure or risk of failure.
[2018-05-11] MEDS: DOCUSATE SODIUM 100 MG CAPSULE (FP) PO SCH (22:00)
[2018-05-11] MEDS ORDERED: CHLORHEXIDINE GLUCONATE 4% CLEANSER FOR DECOLONIZATION TP SCH (22:00)
[2018-05-11] MEDS: levETIRAcetam 500 MG/5 ML INJECTION VIAL IVPB SCH (23:30)
[2018-05-11] MEDS: MUPIROCIN 2% TOPICAL OINTMENT FOR DECOLONIZATION NS SCH (23:30)
[2018-05-11] MEDS: CEFAZOLIN 1 GM in DEXTROSE 5%-WATER - 50 ML IVPB SCH (23:30)
[2018-05-11] MEDS: HEPARIN NA (PORCINE) 5,000 UNITS/ML 1ML VIAL SQ SCH (23:30)
[2018-05-12] MEDS ORDERED: LABETALOL HCL 5 MG/1 ML (100MG/20 ML VIAL) ONE (01:28)
[2018-05-12] MEDS: DEXAMETHASONE SOD PHOSPHATE 4 MG/1 ML VIAL IVPUSH SCH ×3 (02:00→17:18)
[2018-05-12] MEDS ORDERED: PT OWN MED DRAWER 7, Y5N ONE (03:21)
[2018-05-12 05:55] LABS: BASO % 0.4 % (0-2.0); HEMATOCRIT 29.6 % (35.4-49); HEMOGLOBIN 9.5 GM/dL (11.7-16.9); LYMPH % 6.7 % (8-40); MCH 27.1 pg (25.7-33.7); MCHC 32.1 g/dl (32.0-35.9); MEAN CELL VOLUME 84.4 fl (80-96); MEAN PLT VOLUME 9.3 fl (7.5-11.1); MONO % 6.9 % (3.8-10.2); PLATELET COUNT 158 K/MM3 (134-434); RBC 3.51 M/mm3 (4.00-5.60); WHITE BLOOD COUNT 8.9 K/mm3 (4.0-10.0)
[2018-05-12] MEDS: DOCUSATE SODIUM 100 MG CAPSULE (FP) PO SCH ×3 (06:01→22:00)
[2018-05-12] MEDS: HEPARIN NA (PORCINE) 5,000 UNITS/ML 1ML VIAL SQ SCH ×3 (06:01→21:59)
[2018-05-12] MEDS: CEFAZOLIN 1 GM in DEXTROSE 5%-WATER - 50 ML IVPB SCH ×2 (06:02→13:30)
[2018-05-12 06:43] LABS: ALBUMIN 2.5 g/dl (3.4-5.0); ALK PHOS 130 U/L (45-117); ANION GAP 5 MMOL/L (8-16); BILIRUBIN,TOTAL 0.3 mg/dL (0.2-1); BLOOD UREA NITROGEN 39 mg/dL (7-18); CALCIUM 8.1 mg/dL (8.5-10.1); CHLORIDE 110 mmol/L (98-107); CO2 27 mmol/L (21-32); CREATININE 0.9 mg/dL (0.55-1.3); GLUCOSE,RANDOM 246 mg/dL (74-106); POTASSIUM 4.7 mmol/L (3.5-5.1); SGOT/AST 21 U/L (15-37); SGPT/ALT 19 U/L (13-61); SODIUM 142 mmol/L (136-145); TOT PROT 5.4 g/dl (6.4-8.2)
[2018-05-12 07:13] LABS: ARTERIAL BLD GAS O2 SATURATION 93.1 % (90-98.9); ARTERIAL BLOOD GAS BASE EXCESS -0.1 meq/l (-2-2); ARTERIAL BLOOD GAS PCO2 44.1 mmHg (35-45); ARTERIAL BLOOD GAS PO2 73.4 mmHg (80-100); ARTERIAL BLOOD GAS pH 7.37 (7.35-7.45)
[2018-05-12] MEDS: INSULIN SLIDING SCALE (NOVOLOG) 1 VIAL SQ SCH ×4 (07:29→22:00)
[2018-05-12] MEDS: ALBUTEROL SO4 2.5/IPRATROPIUM 0.5 INH SOL 3 ML VIAL.NEB. NEB SCH ×4 (08:00→21:30)
[2018-05-12] MEDS ORDERED: FUROSEMIDE 40 MG/4 ML INJECTABLE VIAL ONE (08:06)
[2018-05-12] MEDS ORDERED: FUROSEMIDE 40 MG/4 ML INJECTABLE VIAL IVPUSH ONE (08:16)
--- NOTE | 2018-05-12 08:22 | PN ---
Progress Note (short form) - Note Progress Note: Patient seen and examined at bed side this morning. Vitals: BP: 125/72 mmHg, HR 72 bpm, ; RR- 30, Spo2-100 % in non rebreather. He is using accessory muscles and has labored breathing. Call placed to Dr. Taveras who recommends repeat head CT once stable, place on Bipap, stop IV fluids, Give home dose IV lasix 40mg, maintain SBP < 130 mmHg , continue Labetolol drip. Will place the patient on Bipap and continue to monitor
--- NOTE | 2018-05-12 08:49 | PN ---
Progress Note (short form) - Note Progress Note: POD 1, s/p Left frontal craniotomy, excision of thalamic hemorrhagic mass Pt laying in bed on BiPAP, not responding to questions. Per ICU resident, pt responding "yes/no" overnight to questioning. This AM became tachypnic/ minimally responsive with increased work of breathing, Pt placed on BiPAP shortly after 8AM. ABG done at 6AM, po2 73, remainder wnl. UOP 700ml overnight. Gen: laying in bed with eyes slightly open, on bipap. Neuro: Does not respond to commands. Does not withdraw to noxious stimuli (b/l UE/LEs checked). Opens eyes slightly to sternal rub. B/L pupils pin point, L minimally responsive. Vital Signs Temp 96.7 F L 05/12/18 08:00 Pulse 61 05/12/18 08:00 Resp 32 H 05/12/18 08:00 BP 112/56 L 05/12/18 08:00 Pulse Ox 90 L 05/12/18 08:00 Intake & Output 05/11/18 05/11/18 05/12/18 11:59 23:59 11:59 Intake Total 2300 450 Output Total 1775 700 Balance 525 -250 Weight 168 lb 11.2 oz Intake: IV 2300 450 Normodyne Injection - 1, 450 000 mg In Normal Saline - 800 ml @ 2 MG/MIN 120 mls/hr IV TITR HIEN Rx#: [id number] Output: Urine 1750 700 Smith 700 Estimated Blood Loss 25 Other: Voiding Method Incontinent Incontinent Indwelling Catheter # Unmeasured Voids Void 1 Bowel Movement No Height 5 ft 9 in Body Mass Index (BMI) 24.9 Weight Measurement Method Patient Lift Scale CBC, BMP 05/12/18 05:30 05/12/18 05:30 ABG Results ABG pH 7.37 (7.35-7.45) 05/12/18 06:30 ABG pCO2 at Pt Temp 44.1 mmHg (35-45) 05/12/18 06:30 ABG pO2 at Pt Temp 73.4 mmHg (80-100) L 05/12/18 06:30 ABG HCO3 24.8 meq/L (22-26) 05/12/18 06:30 ABG O2 Sat (Measured) 93.1 % (90-98.9) 05/12/18 06:30 ABG O2 Content 16.6 % vol (15-22) 05/12/18 06:30 ABG Base Excess -0.1 meq/l (-2-2) 05/12/18 06:30 67 y/o M w/ PMHx of Atrial fibrillation (on Warfarin but taken off a week prior to the visit), CVA x3, IDDMII with neuropathy, recent h/o hemorrhagic CVA 1 week prior, admitted 05/10 after being BIBEMS from [facility] s/p unwitnessed mechanical fall from recliner, with head trauma. Pt now s/p Left frontal craniotomy, excision of thalamic hemorrhagic mass. Pt minimally responsive this AM, going down for STAT CTH. attending aware, will follow closely
--- NOTE | 2018-05-12 09:38 | PN ---
Progress Note (short form) - Note Progress Note: 67 year old male history of DM, Neuropathy, had recent brainbleed, he also have history of atrial fibrillation. Patient fell out of wheel chair. Patient is sleepy today, there is no documentation of seizure or fever. He has ct scan done showed left basal ganglia bleed and old right parietal lobe infarct. He underwent craniotomy by Dr Aden and clot removal. He is off sedation and opens eye and was answering yes and no . There is no seizure . His chest was congested and he was given lasix and had stat ct head. repot is pending. 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 DM, HTN, Brain bleed and old stroke S Neurological Examination( Limited Neuro exam) sleepy, and have been open his eye to commnad, but would not engage in talking. ( earlier morning he was answering yes and no to nurses and started crying) His vital is normal, no neck stiffness pupils is reactive, small, mild right facial palsy right sided hemiparesis Assessment: left basal ganglia bleed with intra ventricular extension. Patient was in [place] was brought because of fall. S/P Craniotomy on May 11 and clot removal. off sedation. Plan: 1. follow up on repeat ct head 2. neurosurgery follow up 3. continue icu are adn supportive care, Will continue to follow with primary Thanking you so much Avelino Phoenix MD
--- NOTE | 2018-05-12 09:49 | PN ---
Progress Note, GARMENT ALTERATION EXAMINER - Note Progress Note: s/p craniotomy. Not responsive. On BIPAP. RR 30. 104/52.CT head pending. Case reviewed with staff. Selected Entries 05/12/18 09:27 Lunch NPO Laboratory Tests 05/12/18 05:30 WBC 8.9
--- NOTE | 2018-05-12 10:15 | PN ---
Progress Note, Physician - Current Medication List Current Medications: Active Medications Acetaminophen/Codeine Phosphate (Tylenol # 3 -) 1 tab PO Q4H PRN PRN Reason: PAIN LEVEL 1-5 Albuterol/Ipratropium (Duoneb -) 1 amp NEB RQID [facility] Last Admin: 05/12/18 08:00 Dose: Not Given Dexamethasone Sodium Phosphate (Decadron Injection -) 4 mg IVPUSH Q8H-IV [facility] Last Admin: 05/12/18 02:00 Dose: 4 mg Docusate Sodium (Colace -) 100 mg PO TID [facility] Last Admin: 05/12/18 06:01 Dose: Not Given Fentanyl (Sublimaze Injection -) 50 mcg IVPUSH [id number] PRN PRN Reason: PAIN-PACU ORDER X 4 DOSES ONLY Last Admin: 05/11/18 20:55 Dose: 50 mcg Heparin Sodium (Porcine) (Heparin -) 5,000 unit SQ TID [facility] Last Admin: 05/12/18 06:01 Dose: 5,000 unit Cefazolin Sodium 1 gm/ (Dextrose) 50 mls @ 100 mls/hr IVPB Q8H [facility] Stop: 05/12/18 14:29 Last Admin: 05/12/18 06:02 Dose: 100 mls/hr Labetalol HCl 1,000 mg/ Sodium (Chloride) 1,000 mls @ 120 mls/hr IV TITR [facility] Last Admin: 05/11/18 18:45 Dose: 2 mg/min, 120 mls/hr Insulin Aspart (Novolog Vial Sliding Scale -) 1 vial SQ ACHS [facility]; Protocol Last Admin: 05/12/18 07:29 Dose: 4 units Levetiracetam (Keppra Injection -) 500 mg IVPB BID [facility] Last Admin: 05/11/18 23:30 Dose: 500 mg Mupirocin (Bactroban Ointment (For Decolonization) -) 1 applic NS BID [facility] Stop: 05/16/18 21:59 Last Admin: 05/11/18 23:30 Dose: 1 unit Ondansetron HCl (Zofran Injection) 4 mg IVPUSH Q6H PRN PRN Reason: NAUSEA Ondansetron HCl (Zofran Injection) 4 mg IVPUSH Q6H PRN PRN Reason: NAUSEA AND/OR VOMITING Last Admin: 05/11/18 19:00 Dose: 4 mg Pantoprazole Sodium (Protonix Iv) 40 mg IVPUSH DAILY HIEN - Objective Vital Signs: Vital Signs Temperature 96.7 F L 05/12/18 08:00 Pulse Rate 74 05/12/18 09:00 Respiratory Rate 24 H 05/12/18 09:00 Blood Pressure 104/52 L 05/12/18 09:00 O2 Sat by Pulse Oximetry (%) 97 05/12/18 08:30 Labs: CBC, BMP 05/12/18 05:30 05/12/18 05:30 INR, PTT INR 1.06 (0.83-1.09) 05/10/18 16:15 Problem List - Problems (1) Intracranial bleed Assessment/Plan: -POD #0 with no complications and EBL of 25cc -HOB 35 -Decadron 4mg Q8H Continue Labetolol drip and titrate as needed -DVT prophylaxis -Keppra 500mg IVP BID for seizure prophylaxis -IV fluid with Lactated ringers @125cc/hr -Smith catheter management -Monitor I&O's -Incentive spirometer Code(s): I62.9 - NONTRAUMATIC INTRACRANIAL HEMORRHAGE, UNSPECIFIED (2) Diabetes Assessment/Plan: [facility] Code(s): E11.9 - TYPE 2 DIABETES MELLITUS WITHOUT COMPLICATIONS (3) HTN (hypertension) Assessment/Plan: -Monitor on labetolol Vital Signs Period Temp Pulse Resp BP Sys/Goel Pulse Ox Last 24 Hr 96.7 F-98.5 F 61-112 18-32 104-189/52-93 90-100 Code(s): I10 - ESSENTIAL (PRIMARY) HYPERTENSION
[2018-05-12] MEDS: MUPIROCIN 2% TOPICAL OINTMENT FOR DECOLONIZATION NS SCH ×2 (10:33→22:00)
[2018-05-12] MEDS: PANTOPRAZOLE SODIUM 40 MG VIAL IVPUSH SCH (10:44)
[2018-05-12] MEDS: levETIRAcetam 500 MG/5 ML INJECTION VIAL IVPB SCH ×2 (10:44→21:59)
--- NOTE | 2018-05-12 11:33 | PN ---
Progress Note (short form) - Note Progress Note: Anesthesia post op note< S/P craniotomy with evacuation of hematoma under GETA. Pat seen and examined. On PIPAP, Tachypnic. Non responsive. VSS. BP: 110/53, P:72 RR:27 Spo2:100 CT head today shows no major changes compare to yesterday. No complications related to anesthesia. Signed off.
[2018-05-12] MEDS ORDERED: DEXTROSE 5%-WATER - 50 ML IVPB ONE (13:15)
[2018-05-12] MEDS ORDERED: ceFAZolin SODIUM 1 GM VIAL ONE (13:15)
--- NOTE | 2018-05-12 13:15 | PN ---
Teaching Attending Note Name of Resident: Can Ledbetter ATTENDING PHYSICIAN STATEMENT I saw and evaluated the patient. I reviewed the resident's note and discussed the case with the resident. I agree with the resident's findings and plan as documented. SUBJECTIVE Patient seen and examined in the ICU. Lethargic and poorly responsive on NIPPV. He is not hypercapneic on ABG. CT was reviewed by radiology and Neurosurgery: no gross changes (other than post op findings) that would explain poor mental status. (I am not clear about baseline). Hemodynamics have been somewhat marginal (MAPs 60's) so Labetalol drip was discontinued to allow for higher perfusion pressure. Intake & Output 05/09/18 05/10/18 05/11/18 05/12/18 23:59 23:59 23:59 23:59 Intake Total 2300 450 Output Total 1775 700 Balance 525 -250 Weight 185 lb 168 lb 11.2 oz 168 lb Last Vital Signs Temp Pulse Resp BP Pulse Ox 96.7 F L 67 22 H 103/60 100 05/12/18 08:00 05/12/18 12:00 05/12/18 12:00 05/12/18 12:00 05/12/18 11:44 Active Medications Acetaminophen/Codeine Phosphate (Tylenol # 3 -) 1 tab PO Q4H PRN PRN Reason: PAIN LEVEL 1-5 Albuterol/Ipratropium (Duoneb -) 1 amp NEB RQID [facility] Last Admin: 05/12/18 11:45 Dose: 1 amp Dexamethasone Sodium Phosphate (Decadron Injection -) 4 mg IVPUSH Q8H-IV [facility] Last Admin: 05/12/18 10:56 Dose: 4 mg Docusate Sodium (Colace -) 100 mg PO TID [facility] Last Admin: 05/12/18 06:01 Dose: Not Given Fentanyl (Sublimaze Injection -) 50 mcg IVPUSH [id number] PRN PRN Reason: PAIN-PACU ORDER X 4 DOSES ONLY Last Admin: 05/11/18 20:55 Dose: 50 mcg Heparin Sodium (Porcine) (Heparin -) 5,000 unit SQ TID [facility] Last Admin: 05/12/18 06:01 Dose: 5,000 unit Cefazolin Sodium 1 gm/ (Dextrose) 50 mls @ 100 mls/hr IVPB Q8H [facility] Stop: 05/12/18 14:29 Last Admin: 05/12/18 06:02 Dose: 100 mls/hr Labetalol HCl 1,000 mg/ Sodium (Chloride) 1,000 mls @ 120 mls/hr IV TITR [facility] Last Admin: 05/11/18 18:45 Dose: 2 mg/min, 120 mls/hr Insulin Aspart (Novolog Vial Sliding Scale -) 1 vial SQ ACHS [facility]; Protocol Last Admin: 05/12/18 11:03 Dose: 4 units Levetiracetam (Keppra Injection -) 500 mg IVPB BID [facility] Last Admin: 05/12/18 10:44 Dose: 500 mg Mupirocin (Bactroban Ointment (For Decolonization) -) 1 applic NS BID [facility] Stop: 05/16/18 21:59 Last Admin: 05/12/18 10:33 Dose: Not Given Ondansetron HCl (Zofran Injection) 4 mg IVPUSH Q6H PRN PRN Reason: NAUSEA Ondansetron HCl (Zofran Injection) 4 mg IVPUSH Q6H PRN PRN Reason: NAUSEA AND/OR VOMITING Last Admin: 05/11/18 19:00 Dose: 4 mg Pantoprazole Sodium (Protonix Iv) 40 mg IVPUSH DAILY [facility] Last Admin: 05/12/18 10:44 Dose: 40 mg GENERAL: Lethargic and poorly arousable on NIPPV HEAD: Surgical head dressing c/d/i with no drainage EYES: PERRL ENT: Dry mucous membranes. NECK: (-) lymphadenopathy, JVD, or masses. LUNGS: Bilateral coarse rhonchi, on NIPPV support. HEART: Regular rate with Irregularly irregular rhythm, 3/5 systolic murmur. ABDOMEN: Soft, nontender, not distended, normoactive bowel sounds, no guarding, no rebound, no masses. No hepatomegaly or splenomegaly. MUSCULOSKELETAL: No CVA tenderness. UPPER EXTREMITIES: No peripheral edema. LOWER EXTREMITIES: No peripheral edema. NEUROLOGICAL: Lethargic, poorly arousable SKIN: Warm, dry, normal turgor, no rashes or lesions noted. Laboratory Results - last 24 hr 05/11/18 05/12/18 05/12/18 21:32 05:30 05:30 WBC 8.9 RBC 3.51 L Hgb 9.5 L Hct 29.6 L MCV 84.4 MCH 27.1 MCHC 32.1 RDW 14.0 Plt Count 158 MPV 9.3 Absolute Neuts (auto) 7.7 Neutrophils % 86.0 H D Lymphocytes % 6.7 L D Monocytes % 6.9 Eosinophils % 0.0 D Basophils % 0.4 Nucleated RBC % 0 Anticoagulation Therapy Puncture Site ABG pH ABG pCO2 at Pt Temp ABG pO2 at Pt Temp ABG HCO3 ABG O2 Sat (Measured) ABG O2 Content ABG Base Excess Oziel Test O2 Delivery Device Oxygen Flow Rate Vent Mode Vent Rate Mechanical Rate Pressure Support Vent Sodium 142 Potassium 4.7 Chloride 110 H Carbon Dioxide 27 Anion Gap 5 L BUN 39 H Creatinine 0.9 Creat Clearance w eGFR > 60 POC Glucometer 267 Random Glucose 246 H Calcium 8.1 L Total Bilirubin 0.3 AST 21 ALT 19 Alkaline Phosphatase 130 H Total Protein 5.4 L Albumin 2.5 L 05/12/18 05/12/18 06:30 11:02 WBC RBC Hgb Hct MCV MCH MCHC RDW Plt Count MPV Absolute Neuts (auto) Neutrophils % Lymphocytes % Monocytes % Eosinophils % Basophils % Nucleated RBC % Anticoagulation Therapy No Result Required. Puncture Site Arterial line ABG pH 7.37 ABG pCO2 at Pt Temp 44.1 ABG pO2 at Pt Temp 73.4 L ABG HCO3 24.8 ABG O2 Sat (Measured) 93.1 ABG O2 Content 16.6 ABG Base Excess -0.1 Oziel Test No Result Required. O2 Delivery Device Non rebreather Oxygen Flow Rate 100 Vent Mode No Result Required. Vent Rate No Result Required. Mechanical Rate No Result Required. Pressure Support Vent No Result Required. 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 lower perfusion pressures) Stop Labetalol and allow SBP to rise to 130 IVF NIPPV Support Closely follow Neuro exam Decadron Aspiration precautions HOB 30 degrees Keppra 500mg IVP BID for seizure prophylaxis VTE prophylaxis Glycemic control BD TX Low threshold for re-intubation ICU monitoring for overall tenuous status Dr Gatica - Critical Care Critical Care patient: Yes Total Critical Care Time (in minutes): 36 Critical Care Statement: The care of this patient involved high complexity decision making to prevent further life threatening deterioration of the patient 's condition and/or to evaluate & treat vital organ system(s) failure or risk of failure.
--- NOTE | 2018-05-12 16:57 | PN ---
Physical Exam: SUBJECTIVE: Patient seen and examined at bedside. He is awake but not responsive on BiPAP. VS are WNL. Dr. Taveras came into the ICU and said that what he removed during the operation was likely a blood clot and not a tumor. Now the patient is here s/p Left frontal craniotomy for intraventricular hemorrhage clean up. OBJECTIVE: Vital Signs Period Temp Pulse Resp BP Sys/Goel Pulse Ox Last 24 Hr 96.7 F-98.5 F 61-112 18-32 101-189/49-93 90-100 GENERAL: The patient is awake, not alert or oriented and has labored abdominal breathing. HEAD: Surgical head dressing. No erythematous areas. EYES: PERRL, sclera anicteric, conjunctiva clear. ENT: Ears normal, nares patent, oropharynx clear without exudates, moist mucous membranes. NECK: Trachea midline. LUNGS: He is using abdominal muscles to breathe. Coarse breath sounds bilaterally with significant wheezes. no crackles. HEART: Regular rate and rhythm, S1, S2 without murmur, rub or gallop. ABDOMEN: Soft, nontender, nondistended, normoactive bowel sounds, no guarding, no rebound, no hepatosplenomegaly, no masses. EXTREMITIES: 2+ pulses, warm, well-perfused, no edema. NEUROLOGICAL: Cannot assess. PSYCH: Poor eye contact. SKIN: Warm, dry, normal turgor, no rashes or lesions noted Laboratory Results - last 24 hr 05/11/18 05/12/18 05/12/18 21:32 05:30 05:30 WBC 8.9 RBC 3.51 L Hgb 9.5 L Hct 29.6 L MCV 84.4 MCH 27.1 MCHC 32.1 RDW 14.0 Plt Count 158 MPV 9.3 Absolute Neuts (auto) 7.7 Neutrophils % 86.0 H D Lymphocytes % 6.7 L D Monocytes % 6.9 Eosinophils % 0.0 D Basophils % 0.4 Nucleated RBC % 0 Anticoagulation Therapy Puncture Site ABG pH ABG pCO2 at Pt Temp ABG pO2 at Pt Temp ABG HCO3 ABG O2 Sat (Measured) ABG O2 Content ABG Base Excess Oziel Test O2 Delivery Device Oxygen Flow Rate Vent Mode Vent Rate Mechanical Rate Pressure Support Vent Sodium 142 Potassium 4.7 Chloride 110 H Carbon Dioxide 27 Anion Gap 5 L BUN 39 H Creatinine 0.9 Creat Clearance w eGFR > 60 POC Glucometer 267 Random Glucose 246 H Calcium 8.1 L Total Bilirubin 0.3 AST 21 ALT 19 Alkaline Phosphatase 130 H Total Protein 5.4 L Albumin 2.5 L 05/12/18 05/12/18 06:30 11:02 WBC RBC Hgb Hct MCV MCH MCHC RDW Plt Count MPV Absolute Neuts (auto) Neutrophils % Lymphocytes % Monocytes % Eosinophils % Basophils % Nucleated RBC % Anticoagulation Therapy No Result Required. Puncture Site Arterial line ABG pH 7.37 ABG pCO2 at Pt Temp 44.1 ABG pO2 at Pt Temp 73.4 L ABG HCO3 24.8 ABG O2 Sat (Measured) 93.1 ABG O2 Content 16.6 ABG Base Excess -0.1 Oziel Test No Result Required. O2 Delivery Device Non rebreather Oxygen Flow Rate 100 Vent Mode No Result Required. Vent Rate No Result Required. Mechanical Rate No Result Required. Pressure Support Vent No Result Required. Sodium Potassium Chloride Carbon Dioxide Anion Gap BUN Creatinine Creat Clearance w eGFR POC Glucometer [phone] Random Glucose Calcium Total Bilirubin AST ALT Alkaline Phosphatase Total Protein Albumin Active Medications Generic Name Dose Route Start Last Admin Trade Name Freq PRN Reason Stop Dose Admin Acetaminophen/Codeine Phosphate 1 tab 05/11/18 17:31 Tylenol # 3 - PO Q4H PRN PAIN LEVEL 1-5 Albuterol/Ipratropium 1 amp 05/12/18 08:00 05/12/18 11:45 Duoneb - NEB 1 amp RQID HIEN Administration Dexamethasone Sodium Phosphate 4 mg 05/12/18 02:00 05/12/18 10:56 Decadron Injection - IVPUSH 4 mg Q8H-IV [facility] Administration Docusate Sodium 100 mg 05/11/18 22:00 05/12/18 13:30 Colace - PO Not Given TID HIEN Fentanyl 50 mcg 05/11/18 17:57 05/11/18 20:55 Sublimaze Injection - IVPUSH 50 mcg [id number] PRN Administration PAIN-PACU ORDER X 4 DOSES ONLY Heparin Sodium (Porcine) 5,000 unit 05/11/18 22:00 05/12/18 13:30 Heparin - SQ 5,000 unit TID [facility]EN Administration Labetalol HCl 1,000 mg/ Sodium 1,000 mls @ 120 mls/hr 05/11/18 17:45 18:45 Chloride IV 2 mg/min TITR HIEN 120 mls/hr Administration 2 MG/MIN Insulin Aspart 1 vial 05/12/18 07:00 05/12/18 11:03 Novolog Vial Sliding Scale - SQ 4 units ACHS HIEN Administration Protocol Levetiracetam 500 mg 05/11/18 22:00 05/12/18 10:44 Keppra Injection - IVPB 500 mg BID [facility] Administration Mupirocin 1 applic 05/11/18 22:00 05/12/18 10:33 Bactroban Ointment (For Decolonization) - NS 05/16/18 21:59 Not Given BID [facility] Ondansetron HCl 4 mg 05/11/18 17:31 Zofran Injection IVPUSH Q6H PRN NAUSEA Ondansetron HCl 4 mg 05/11/18 17:57 05/11/18 19:00 Zofran Injection IVPUSH 4 mg Q6H PRN Administration NAUSEA AND/OR VOMITING Pantoprazole Sodium 40 mg 05/12/18 10:00 05/12/18 10:44 Protonix Iv IVPUSH 40 mg DAILY [facility] Administration ASSESSMENT/PLAN: Assessment: 67 yo M w a hx of AFIB, recent hemorrhagic CVA, T2DM is here s/p Left frontal craniotomy and blood clot removal after being operated on by Dr. Taveras. We have been given strict instructions to make sure the BP stays below 130 and his O2 stays above 95%. He is here for post-op management. Plan: Cardio: - Strict BP control with systolic < 130 - IV hydration - Lebatalol for elevated BP or rate control PRN Pulm: - Currently doing well on BiPAP. - Low threshold to re-intubate. - ABG BID - DUONEBS Neuro: - AMS of unclear etiology. - frequent neuroexams - Keppra 500 mg for seizure prohylaxis. - Head of the bead 30 degrees. GI: - Aspiration precautions. - Protonix 40 - Zofran PRN Endo: - Decadron - Sliding scale - frequent glucose checks Prophylaxis: - Aspiration precautions. - Heparin 5000 TID F/E/N: - NPO - Replete lytes PRN - No standing fluids Code Status: - Full code Dispo: - Patient will continue to receive monitoring in the ICU. Visit type - Emergency Visit Emergency Visit: Yes ED Registration Date: 05/10/18 Care time: The patient presented to the Emergency Department on the above date and was hospitalized for further evaluation of their emergent condition. - New Patient This patient is new to me today: Yes Date on this admission: 05/12/18 - Critical Care Critical Care patient: Yes Total Critical Care Time (in minutes): 46 Critical Care Statement: The care of this patient involved high complexity decision making to prevent further life threatening deterioration of the patient 's condition and/or to evaluate & treat vital organ system(s) failure or risk of failure.
[2018-05-12 18:02] LABS: ARTERIAL BLD GAS O2 SATURATION 99.8 % (90-98.9); ARTERIAL BLOOD GAS BASE EXCESS 1.3 meq/l (-2-2); ARTERIAL BLOOD GAS PCO2 53.1 mmHg (35-45); ARTERIAL BLOOD GAS pH 7.33 (7.35-7.45)
[2018-05-12 18:04] LABS: ALLENS TEST POSITIVE
[2018-05-12] MEDS ORDERED: RAPID SEQUENCE INTUBATION KIT NR ONE (18:36)
[2018-05-12] MEDS ORDERED: ETOMIDATE 20 MG/10 ML AMPUL IVPUSH ONE (18:45)
[2018-05-12] MEDS ORDERED: SUCCINYLCHOLINE CHLORIDE 200 MG/10 ML VIAL ONE (18:46)
[2018-05-12] MEDS ORDERED: ROCURONIUM BROMIDE 50 MG/5 ML VIAL ONE (18:46)
--- NOTE | 2018-05-12 19:08 | PN ---
Progress Note (short form) - Note Progress Note: Intubation Note: By Dr CARMONA. Pat in respiratory distress. On BIPAP. VSS. Unresponsive. Intubation by Dr CARMONA. I was not present at bedside. Etomidate 16 mg and succinylcholine 100 mg given. EZ intubation, + ETCO2, BBS. Secured ETT. VSS after intubation.
[2018-05-12 21:39] LABS: ARTERIAL BLD GAS O2 SATURATION 99.4 % (90-98.9); ARTERIAL BLOOD GAS BASE EXCESS 0.6 meq/l (-2-2); ARTERIAL BLOOD GAS PCO2 42.9 mmHg (35-45); ARTERIAL BLOOD GAS pH 7.39 (7.35-7.45)
[2018-05-12 21:42] LABS: ALLENS TEST POSITIVE
[2018-05-13] MEDS: DEXAMETHASONE SOD PHOSPHATE 4 MG/1 ML VIAL IVPUSH SCH ×3 (01:51→17:14)
[2018-05-13 06:11] LABS: BASO % 0.1 % (0-2.0); HEMATOCRIT 30.7 % (35.4-49); LYMPH % 4.7 % (8-40); MCH 27.6 pg (25.7-33.7); MCHC 32.5 g/dl (32.0-35.9); MEAN PLT VOLUME 9.7 fl (7.5-11.1); MONO % 4.5 % (3.8-10.2); NEUT % 90.7 % (42.8-82.8); PLATELET COUNT 159 K/MM3 (134-434); RBC 3.61 M/mm3 (4.00-5.60); WHITE BLOOD COUNT 10.5 K/mm3 (4.0-10.0)
[2018-05-13] MEDS: DOCUSATE SODIUM 100 MG CAPSULE (FP) PO SCH ×3 (06:16→21:26)
[2018-05-13] MEDS ORDERED: FUROSEMIDE 40 MG/4 ML INJECTABLE VIAL IVPB ONE (06:18)
[2018-05-13 06:22] LABS: ARTERIAL BLD GAS O2 SATURATION 98.5 % (90-98.9); ARTERIAL BLOOD GAS BASE EXCESS 0.1 meq/l (-2-2); ARTERIAL BLOOD GAS PCO2 43.1 mmHg (35-45); ARTERIAL BLOOD GAS pH 7.38 (7.35-7.45)
[2018-05-13] MEDS ORDERED: FUROSEMIDE 40 MG/4 ML INJECTABLE VIAL ONE (06:25)
[2018-05-13] MEDS: HEPARIN NA (PORCINE) 5,000 UNITS/ML 1ML VIAL SQ SCH ×3 (06:31→21:26)
[2018-05-13] MEDS: INSULIN SLIDING SCALE (NOVOLOG) 1 VIAL SQ SCH ×4 (06:32→21:35)
[2018-05-13 06:44] LABS: ALLENS TEST POSITIVE
[2018-05-13 06:47] LABS: ALBUMIN 2.5 g/dl (3.4-5.0); ALK PHOS 169 U/L (45-117); ANION GAP 6 MMOL/L (8-16); BLOOD UREA NITROGEN 45 mg/dL (7-18); CALCIUM 8.3 mg/dL (8.5-10.1); CHLORIDE 114 mmol/L (98-107); CO2 26 mmol/L (21-32); CREATININE 1.1 mg/dL (0.55-1.3); GLUCOSE,RANDOM 173 mg/dL (74-106); MAGNESIUM 2.7 mg/dL (1.8-2.4); PHOSPHOROUS 3.3 mg/dL (2.5-4.9); POTASSIUM 4.6 mmol/L (3.5-5.1); SGOT/AST 24 U/L (15-37); SGPT/ALT 22 U/L (13-61); SODIUM 145 mmol/L (136-145); TOT PROT 5.5 g/dl (6.4-8.2)
--- NOTE | 2018-05-13 07:01 | PN ---
Progress Note (short form) - Note Progress Note: Plan: NG tube placement this AM. Continue Home medication through NG. Unsure if Aspirin can be started since he had the surgery 2 days ago. F/up with Dr. Taveras.
--- NOTE | 2018-05-13 08:09 | PN ---
Progress Note, Physician - Current Medication List Current Medications: Active Medications Acetaminophen/Codeine Phosphate (Tylenol # 3 -) 1 tab PO Q4H PRN PRN Reason: PAIN LEVEL 1-5 Albuterol/Ipratropium (Duoneb -) 1 amp NEB RQID [facility] Last Admin: 05/12/18 21:30 Dose: 1 amp Amlodipine Besylate (Norvasc -) 10 mg PO DAILY [facility] Atorvastatin Calcium (Lipitor -) 80 mg PO HS [facility] Dexamethasone Sodium Phosphate (Decadron Injection -) 4 mg IVPUSH Q8H-IV [facility] Last Admin: 05/13/18 01:51 Dose: 4 mg Docusate Sodium (Colace -) 100 mg PO TID [facility] Last Admin: 05/13/18 06:16 Dose: Not Given Fentanyl (Sublimaze Injection -) 50 mcg IVPUSH [id number] PRN PRN Reason: PAIN-PACU ORDER X 4 DOSES ONLY Last Admin: 05/11/18 20:55 Dose: 50 mcg Heparin Sodium (Porcine) (Heparin -) 5,000 unit SQ TID [facility] Last Admin: 05/13/18 06:31 Dose: 5,000 unit Insulin Aspart (Novolog Vial Sliding Scale -) 1 vial SQ [facility]; Protocol Last Admin: 05/13/18 06:32 Dose: Not Given Labetalol HCl 200 mg/ (Labetalol HCl 100 mg) 300 mg PO TID [facility] Levetiracetam (Keppra Injection -) 500 mg IVPB BID [facility] Last Admin: 05/12/18 21:59 Dose: 500 mg Lisinopril (Prinivil) 20 mg PO DAILY [facility] Mupirocin (Bactroban Ointment (For Decolonization) -) 1 applic NS BID [facility] Stop: 05/16/18 21:59 Last Admin: 05/12/18 22:00 Dose: 1 unit Ondansetron HCl (Zofran Injection) 4 mg IVPUSH Q6H PRN PRN Reason: NAUSEA Ondansetron HCl (Zofran Injection) 4 mg IVPUSH Q6H PRN PRN Reason: NAUSEA AND/OR VOMITING Last Admin: 05/11/18 19:00 Dose: 4 mg Pantoprazole Sodium (Protonix Iv) 40 mg IVPUSH DAILY [facility] Last Admin: 05/12/18 10:44 Dose: 40 mg - Objective Vital Signs: Vital Signs Temperature 98.4 F 05/13/18 06:00 Pulse Rate 92 H 05/13/18 06:00 Respiratory Rate 18 05/13/18 06:56 Blood Pressure 147/73 05/13/18 06:00 O2 Sat by Pulse Oximetry (%) 99 05/12/18 20:05 Respiratory: Yes: Mechanically Ventilated Gastrointestinal: Yes: Normal Bowel Sounds, Soft Neurological: Yes: Lethargy Labs: CBC, BMP 05/13/18 05:30 05/13/18 05:30 INR, PTT INR 1.06 (0.83-1.09) 05/10/18 16:15 Problem List - Problems (1) Intracranial bleed Assessment/Plan: -POD #0 with no complications and EBL of 25cc -HOB 35 -Decadron 4mg Q8H Continue Labetolol drip and titrate as needed -DVT prophylaxis -Keppra 500mg IVP BID for seizure prophylaxis -IV fluid with Lactated ringers @125cc/hr -Smith catheter management -Monitor I&O's -Incentive spirometer Code(s): I62.9 - NONTRAUMATIC INTRACRANIAL HEMORRHAGE, UNSPECIFIED (2) Diabetes Assessment/Plan: [facility] Code(s): E11.9 - TYPE 2 DIABETES MELLITUS WITHOUT COMPLICATIONS (3) HTN (hypertension) Assessment/Plan: -Monitor on labetolol Vital Signs Period Temp Pulse Resp BP Sys/Goel Pulse Ox Last 24 Hr 96.7 F-98.5 F 61-112 18-32 104-189/52-93 90-100 Code(s): I10 - ESSENTIAL (PRIMARY) HYPERTENSION (4) Respiratory failure Assessment/Plan: -now intubated -?mucus plugging -resp -cxr Code(s): J96.90 - RESPIRATORY FAILURE, UNSP, UNSP W HYPOXIA OR HYPERCAPNIA
[2018-05-13] MEDS: ALBUTEROL SO4 2.5/IPRATROPIUM 0.5 INH SOL 3 ML VIAL.NEB. NEB SCH ×4 (09:30→21:00)
[2018-05-13] MEDS: amLODIPine BESYLATE 10 MG TABLET (FP) PO SCH (10:28)
[2018-05-13] MEDS: PANTOPRAZOLE SODIUM 40 MG VIAL IVPUSH SCH (10:30)
[2018-05-13] MEDS: levETIRAcetam 500 MG/5 ML INJECTION VIAL IVPB SCH ×2 (10:30→21:26)
[2018-05-13] MEDS: LISINOPRIL 20 MG TABLET (FP) PO SCH (10:31)
[2018-05-13] MEDS: ACETAMINOPHEN 325 MG TABLET (FP) PO PRN (10:45)
--- NOTE | 2018-05-13 10:52 | PN ---
Progress Note (short form) - Note Progress Note: Pulm/CCM SUBJECTIVE Patient seen and examined in the ICU. 24HR: -reintubated, appears mucus plugging on L, improved on repeat CXR -febrile to 101.4 this am -Bp higher now, following commands Vital Signs Temp 101.4 F H 05/13/18 10:00 Pulse 100 H 05/13/18 10:00 Resp 20 05/13/18 10:14 BP 174/94 H 05/13/18 10:00 Pulse Ox 99 05/12/18 20:05 Intake & Output 05/12/18 05/12/18 05/13/18 11:59 23:59 11:59 Intake Total 450 425 35 Output Total 700 2000 400 Balance -342 -5440 -365 Weight 76.204 kg 83.552 kg Intake: IV 450 275 35 Lactated Ringers Solution 100 1,000 ml @ 125 mls/hr IV ASDIR HIEN Rx#: [id number] NS 25 35 Normodyne Injection - 1, 450 150 000 mg In Normal Saline - 800 ml @ 2 MG/MIN 120 mls/hr IV TITR [facility] Rx#: [id number] IVPB 150 Output: Urine 700 2000 400 Smith 700 400 400 Void 1600 Other: Voiding Method Indwelling Catheter Indwelling Catheter Indwelling Catheter Height 5 ft 9 in Body Mass Index (BMI) 24.7 Active Medications Acetaminophen (Tylenol -) 650 mg PO Q6H PRN PRN Reason: FEVER Last Admin: 05/13/18 10:45 Dose: 650 mg Albuterol/Ipratropium (Duoneb -) 1 amp NEB RQID [facility] Last Admin: 05/13/18 09:30 Dose: 1 amp Amlodipine Besylate (Norvasc -) 10 mg PO DAILY [facility] Last Admin: 05/13/18 10:28 Dose: 10 mg Atorvastatin Calcium (Lipitor -) 80 mg PO HS [facility] Dexamethasone Sodium Phosphate (Decadron Injection -) 4 mg IVPUSH Q8H-IV [facility] Last Admin: 05/13/18 10:30 Dose: 4 mg Docusate Sodium (Colace -) 100 mg PO TID [facility] Last Admin: 05/13/18 06:16 Dose: Not Given Fentanyl (Sublimaze Injection -) 50 mcg IVPUSH [id number] PRN PRN Reason: PAIN-PACU ORDER X 4 DOSES ONLY Last Admin: 05/11/18 20:55 Dose: 50 mcg Heparin Sodium (Porcine) (Heparin -) 5,000 unit SQ TID [facility] Last Admin: 05/13/18 06:31 Dose: 5,000 unit Insulin Aspart (Novolog Vial Sliding Scale -) 1 vial SQ ACHS [facility]; Protocol Last Admin: 05/13/18 06:32 Dose: Not Given Labetalol HCl 200 mg/ (Labetalol HCl 100 mg) 300 mg PO TID [facility] Levetiracetam (Keppra Injection -) 500 mg IVPB BID [facility] Last Admin: 05/13/18 10:30 Dose: 500 mg Lisinopril (Prinivil) 20 mg PO DAILY [facility] Last Admin: 05/13/18 10:31 Dose: 20 mg Mupirocin (Bactroban Ointment (For Decolonization) -) 1 applic NS BID [facility] Stop: 05/16/18 21:59 Last Admin: 05/12/18 22:00 Dose: 1 unit Ondansetron HCl (Zofran Injection) 4 mg IVPUSH Q6H PRN PRN Reason: NAUSEA Ondansetron HCl (Zofran Injection) 4 mg IVPUSH Q6H PRN PRN Reason: NAUSEA AND/OR VOMITING Last Admin: 05/11/18 19:00 Dose: 4 mg Pantoprazole Sodium (Protonix Iv) 40 mg IVPUSH DAILY [facility] Last Admin: 05/13/18 10:30 Dose: 40 mg GENERAL: awakens to noxious stimuli HEAD: Surgical head dressing c/d/i with no drainage EYES: PERRL, EOMI ENT: Dry mucous membranes. NECK: supple, LUNGS: scattered crackles. HEART: Regular rate with Irregularly irregular rhythm, 3/5 systolic murmur. ABDOMEN: soft, NT, ND MUSCULOSKELETAL: No CVA tenderness. UPPER EXTREMITIES: No peripheral edema. LOWER EXTREMITIES: No peripheral edema. 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 lower perfusion pressures) *reintubated for Mucus plugging on L Stop Labetalol and allow SBP to rise to 130-160 Closely follow Neuro exam Decadron Aspiration precautions , chest PT HOB 30 degrees Keppra 500mg IVP BID for seizure prophylaxis VTE prophylaxis Glycemic control follow up cxls, low threshold to start abx BD TX ICU monitoring Bridget HAYWOODP [id number]
[2018-05-13] MEDS: MUPIROCIN 2% TOPICAL OINTMENT FOR DECOLONIZATION NS SCH ×2 (10:56→21:27)
--- NOTE | 2018-05-13 12:33 | EKG ---
Test Reason : Blood Pressure : / mmHG Vent. Rate : 104 BPM Atrial Rate : 227 BPM P-R Int : 000 ms QRS Dur : 096 ms QT Int : 356 ms P-R-T Axes : 000 029 191 degrees QTc Int : 468 ms ATRIAL FIBRILLATION WITH RAPID VENTRICULAR RESPONSE WITH PREMATURE VENTRICULAR OR ABERRANTLY CONDUCTED COMPLEXES CANNOT RULE OUT INFERIOR INFARCT , AGE UNDETERMINED T WAVE ABNORMALITY, CONSIDER LATERAL ISCHEMIA ABNORMAL ECG WHEN COMPARED WITH ECG OF 10-MAY-2018 17:10, NO SIGNIFICANT CHANGE WAS FOUND Confirmed by GARY HOSKINS MD ([id number]) on 05/13/2018 12:32:54 PM Referred By: Minor MARIN Confirmed By:GARY HOSKINS MD
[2018-05-13 13:29] LABS: URINE APPEARANCE SLCLOUDY; URINE BILIRUBIN NEGATIVE (<2.0 mg/dL); URINE COLOR LTYELLOW; URINE GLUCOSE (UA) NEGATIVE (NEGATIVE); URINE KETONE NEGATIVE (NEGATIVE); URINE LEUK ESTERASE NEGATIVE (NEGATIVE); URINE NITRITE NEGATIVE (NEGATIVE); URINE PROTEIN 2+ (NEGATIVE); URINE UROBILINOGEN NEGATIVE mg/dL (0.2-1.0)
[2018-05-13 13:34] LABS: URINE BACTERIA RARE /hpf (NONE SEEN); URINE HYALINE CAST 8 /lpf; URINE MUCUS RARE
[2018-05-13] MEDS ORDERED: PATIENT'S OWN MEDICATION (NON-FORMULARY) (Labetalol Hcl [Labetalol Hcl] 300 MG) PO SCH (14:00)
[2018-05-13] MEDS ORDERED: LABETALOL HCL 100 MG TABLET (FP) ONE ×2 (14:33→21:14)
[2018-05-13] MEDS ORDERED: LABETALOL HCL 200 MG TABLET (FP) ONE ×2 (14:33→21:14)
[2018-05-13] MEDS: LABETALOL HCL 200 MG, LABETALOL HCL 100 MG PO SCH ×2 (14:40→21:26)
[2018-05-13] MEDS: ATORVASTATIN CA 80 MG TABLET (FP) PO SCH (21:26)
[2018-05-14] MEDS: ACETAMINOPHEN 325 MG TABLET (FP) PO PRN ×2 (01:58→08:24)
[2018-05-14] MEDS: DEXAMETHASONE SOD PHOSPHATE 4 MG/1 ML VIAL IVPUSH SCH ×3 (01:59→17:49)
[2018-05-14 06:19] LABS: ANION GAP 8 MMOL/L (8-16); BLOOD UREA NITROGEN 54 mg/dL (7-18); CALCIUM 8.1 mg/dL (8.5-10.1); CHLORIDE 116 mmol/L (98-107); CO2 25 mmol/L (21-32); CREATININE 1.3 mg/dL (0.55-1.3); GLUCOSE,RANDOM 221 mg/dL (74-106); MAGNESIUM 2.6 mg/dL (1.8-2.4); PHOSPHOROUS 2.5 mg/dL (2.5-4.9); POTASSIUM 4.2 mmol/L (3.5-5.1); SODIUM 149 mmol/L (136-145)
[2018-05-14] MEDS ORDERED: LABETALOL HCL 200 MG TABLET (FP) ONE ×3 (06:27→21:13)
[2018-05-14] MEDS ORDERED: LABETALOL HCL 100 MG TABLET (FP) ONE ×3 (06:27→21:13)
[2018-05-14] MEDS: LABETALOL HCL 200 MG, LABETALOL HCL 100 MG PO SCH ×3 (06:33→21:21)
[2018-05-14] MEDS: DOCUSATE SODIUM 100 MG CAPSULE (FP) PO SCH ×3 (06:33→21:21)
[2018-05-14] MEDS: INSULIN SLIDING SCALE (NOVOLOG) 1 VIAL SQ SCH ×4 (06:33→21:21)
[2018-05-14] MEDS: HEPARIN NA (PORCINE) 5,000 UNITS/ML 1ML VIAL SQ SCH ×3 (06:33→21:21)
[2018-05-14 07:18] LABS: HEMATOCRIT 31.9 % (35.4-49); MCH 30.4 pg (25.7-33.7); MCHC 34.6 g/dl (32.0-35.9); MEAN CELL VOLUME 87.9 fl (80-96); MEAN PLT VOLUME 10.3 fl (7.5-11.1); PLATELET COUNT 164 K/MM3 (134-434); RBC 3.63 M/mm3 (4.00-5.60); RDW 14.2 % (11.9-15.9); WHITE BLOOD COUNT 7.9 K/mm3 (4.0-10.0)
--- NOTE | 2018-05-14 08:08 | PN ---
Progress Note (short form) - Note Progress Note: Pulm/CCM SUBJECTIVE Patient seen and examined in the ICU. 24HR: -more altered this am then yesterday afternoon, repeat CT head ordered -febrile overnight but BP stable, no new abx started -sodium rising, D5 started Vital Signs Temp 101.5 F H 05/14/18 06:00 Pulse 111 H 05/14/18 06:00 Resp 21 H 05/14/18 06:37 BP 147/77 05/14/18 06:00 Pulse Ox 99 05/12/18 20:05 Intake & Output 05/13/18 05/13/18 05/14/18 11:59 23:59 10:59 Intake Total 35 160 35 Output Total 400 1800 600 Balance -352 -6585 -536 Weight 83.552 kg Intake: IV 35 85 35 NS 35 85 35 Tube Irrigant 75 Output: Urine 400 1800 600 Smith 400 1800 600 Other: Voiding Method Indwelling Catheter Indwelling Catheter Bowel Movement No Active Medications Acetaminophen (Tylenol -) 650 mg PO Q6H PRN PRN Reason: FEVER Last Admin: 05/14/18 01:58 EST Dose: 650 mg Albuterol/Ipratropium (Duoneb -) 1 amp NEB RQID [facility] Last Admin: 05/13/18 21:00 Dose: 1 amp Amlodipine Besylate (Norvasc -) 10 mg PO DAILY [facility] Last Admin: 05/13/18 10:28 Dose: 10 mg Atorvastatin Calcium (Lipitor -) 80 mg PO HS [facility] Last Admin: 05/13/18 21:26 Dose: 80 mg Dexamethasone Sodium Phosphate (Decadron Injection -) 4 mg IVPUSH Q8H-IV [facility] Last Admin: 05/14/18 01:59 EST Dose: 4 mg Docusate Sodium (Colace -) 100 mg PO TID [facility] Last Admin: 05/14/18 06:33 Dose: Not Given Fentanyl (Sublimaze Injection -) 50 mcg IVPUSH [id number] PRN PRN Reason: PAIN-PACU ORDER X 4 DOSES ONLY Last Admin: 05/11/18 20:55 Dose: 50 mcg Heparin Sodium (Porcine) (Heparin -) 5,000 unit SQ TID [facility] Last Admin: 05/14/18 06:33 Dose: 5,000 unit Dextrose (D5w -) 1,000 mls @ 75 mls/hr IV .[id number] [facility] Insulin Aspart (Novolog Vial Sliding Scale -) 1 vial SQ ACHS [facility]; Protocol Last Admin: 05/14/18 06:33 Dose: 4 units Labetalol HCl 200 mg/ (Labetalol HCl 100 mg) 300 mg PO TID [facility] Last Admin: 05/14/18 06:33 Dose: 300 mg Levetiracetam (Keppra Injection -) 500 mg IVPB BID [facility] Last Admin: 05/13/18 21:26 Dose: 500 mg Lisinopril (Prinivil) 20 mg PO DAILY [facility] Last Admin: 05/13/18 10:31 Dose: 20 mg Mupirocin (Bactroban Ointment (For Decolonization) -) 1 applic NS BID [facility] Stop: 05/16/18 21:59 Last Admin: 05/13/18 21:27 Dose: 1 applic Ondansetron HCl (Zofran Injection) 4 mg IVPUSH Q6H PRN PRN Reason: NAUSEA Ondansetron HCl (Zofran Injection) 4 mg IVPUSH Q6H PRN PRN Reason: NAUSEA AND/OR VOMITING Last Admin: 05/11/18 19:00 Dose: 4 mg Pantoprazole Sodium (Protonix Iv) 40 mg IVPUSH DAILY [facility] Last Admin: 05/13/18 10:30 Dose: 40 mg GENERAL: awakens to noxious stimuli, does not follow HEAD: Surgical head dressing c/d/i with no drainage EYES: pinpoint, sluggish ENT: orally intubated, midline NECK: supple, LUNGS: scattered crackles, no wheezes HEART: Regular rate with Irregularly irregular rhythm, 3/5 systolic murmur. ABDOMEN: soft, NT, ND MUSCULOSKELETAL: No CVA tenderness. UPPER EXTREMITIES: No peripheral edema. LOWER EXTREMITIES: No peripheral edema. 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 lower perfusion pressures) *reintubated for Mucus plugging on L ams this am BP control Closely follow Neuro exam , repeat CT head now Decadron , taper as per neuro-surg Aspiration precautions , chest PT HOB 30 degrees Keppra 500mg IVP BID for seizure prophylaxis VTE prophylaxis Glycemic control follow up cxls, low threshold to start abx BD TX ICU monitoring Bridget ACNP [id number]
[2018-05-14] MEDS: ALBUTEROL SO4 2.5/IPRATROPIUM 0.5 INH SOL 3 ML VIAL.NEB. NEB SCH ×4 (08:10→20:34)
[2018-05-14] MEDS ORDERED: DEXTROSE 5%-WATER - 1,000 ML IV SCH (08:15)
--- NOTE | 2018-05-14 08:30 | PN ---
Progress Note, Physician - Current Medication List Current Medications: Active Medications Acetaminophen (Tylenol -) 650 mg PO Q6H PRN PRN Reason: FEVER Last Admin: 05/14/18 08:24 Dose: 650 mg Albuterol/Ipratropium (Duoneb -) 1 amp NEB RQID [facility] Last Admin: 05/13/18 21:00 Dose: 1 amp Amlodipine Besylate (Norvasc -) 10 mg PO DAILY [facility] Last Admin: 05/13/18 10:28 Dose: 10 mg Atorvastatin Calcium (Lipitor -) 80 mg PO HS [facility] Last Admin: 05/13/18 21:26 Dose: 80 mg Dexamethasone Sodium Phosphate (Decadron Injection -) 4 mg IVPUSH Q8H-IV [facility] Last Admin: 05/14/18 01:59 EST Dose: 4 mg Docusate Sodium (Colace -) 100 mg PO TID [facility] Last Admin: 05/14/18 06:33 Dose: Not Given Fentanyl (Sublimaze Injection -) 50 mcg IVPUSH [id number] PRN PRN Reason: PAIN-PACU ORDER X 4 DOSES ONLY Last Admin: 05/11/18 20:55 Dose: 50 mcg Heparin Sodium (Porcine) (Heparin -) 5,000 unit SQ TID [facility] Last Admin: 05/14/18 06:33 Dose: 5,000 unit Dextrose (D5w -) 1,000 mls @ 75 mls/hr IV .[id number] [facility] Insulin Aspart (Novolog Vial Sliding Scale -) 1 vial SQ ACHS [facility]; Protocol Last Admin: 05/14/18 06:33 Dose: 4 units Labetalol HCl 200 mg/ (Labetalol HCl 100 mg) 300 mg PO TID [facility] Last Admin: 05/14/18 06:33 Dose: 300 mg Levetiracetam (Keppra Injection -) 500 mg IVPB BID [facility] Last Admin: 05/13/18 21:26 Dose: 500 mg Lisinopril (Prinivil) 20 mg PO DAILY [facility] Last Admin: 05/13/18 10:31 Dose: 20 mg Mupirocin (Bactroban Ointment (For Decolonization) -) 1 applic NS BID [facility] Stop: 05/16/18 21:59 Last Admin: 05/13/18 21:27 Dose: 1 applic Ondansetron HCl (Zofran Injection) 4 mg IVPUSH Q6H PRN PRN Reason: NAUSEA Ondansetron HCl (Zofran Injection) 4 mg IVPUSH Q6H PRN PRN Reason: NAUSEA AND/OR VOMITING Last Admin: 05/11/18 19:00 Dose: 4 mg Pantoprazole Sodium (Protonix Iv) 40 mg IVPUSH DAILY [facility] Last Admin: 05/13/18 10:30 Dose: 40 mg - Objective Vital Signs: Vital Signs Temperature 101.4 F H 05/14/18 08:00 Pulse Rate 111 H 05/14/18 08:00 Respiratory Rate 15 05/14/18 08:00 Blood Pressure 153/91 05/14/18 08:00 O2 Sat by Pulse Oximetry (%) 99 05/12/18 20:05 Cardiovascular: Yes: S1, S2 Respiratory: Yes: Mechanically Ventilated Gastrointestinal: Yes: Normal Bowel Sounds, Soft Neurological: Yes: Lethargy Labs: CBC, BMP 05/14/18 05:30 05/14/18 05:30 INR, PTT INR 1.06 (0.83-1.09) 05/10/18 16:15 Problem List - Problems (1) Intracranial bleed Assessment/Plan: -HOB 35 -Decadron 4mg Q8H -DVT prophylaxis -Keppra 500mg IVP BID for seizure prophylaxis -REPEAT CT OF HEAD -Monitor I&O's -Incentive spirometer Code(s): I62.9 - NONTRAUMATIC INTRACRANIAL HEMORRHAGE, UNSPECIFIED (2) Diabetes Assessment/Plan: [facility] Code(s): E11.9 - TYPE 2 DIABETES MELLITUS WITHOUT COMPLICATIONS (3) HTN (hypertension) Assessment/Plan: -Monitor on labetolol And Vasotec Vital Signs Period Temp Pulse Resp BP Sys/Goel Pulse Ox Last 24 Hr 98.8 F-102.2 F 88-111 15-22 123-155/68-91 98-98 Code(s): I10 - ESSENTIAL (PRIMARY) HYPERTENSION (4) Respiratory failure Assessment/Plan: -now intubated -?mucus plugging -resp -cxr Code(s): J96.90 - RESPIRATORY FAILURE, UNSP, UNSP W HYPOXIA OR HYPERCAPNIA
[2018-05-14] MEDS: MUPIROCIN 2% TOPICAL OINTMENT FOR DECOLONIZATION NS SCH ×2 (09:43→21:21)
[2018-05-14] MEDS: levETIRAcetam 500 MG/5 ML INJECTION VIAL IVPB SCH ×2 (09:44→21:21)
[2018-05-14] MEDS: amLODIPine BESYLATE 10 MG TABLET (FP) PO SCH (09:47)
[2018-05-14] MEDS: PANTOPRAZOLE SODIUM 40 MG VIAL IVPUSH SCH (09:47)
[2018-05-14] MEDS: LISINOPRIL 20 MG TABLET (FP) PO SCH (09:47)
[2018-05-14 14:57] LABS: ARTERIAL BLD GAS O2 SATURATION 95.9 % (90-98.9); ARTERIAL BLOOD GAS BASE EXCESS 2.5 meq/l (-2-2); ARTERIAL BLOOD GAS PCO2 37.9 mmHg (35-45); ARTERIAL BLOOD GAS pH 7.45 (7.35-7.45)
[2018-05-14 14:58] LABS: ALLENS TEST POSITIVE
--- NOTE | 2018-05-14 17:10 | PN ---
Progress Note (short form) - Note Progress Note: 67 year old male history of DM, Neuropathy, had recent brain bleed, he also have history of atrial fibrillation. Patient fell out of wheel chair. Patient is sleepy today, there is no documentation of seizure or fever. He has ct scan done showed left basal ganglia bleed and old right parietal lobe infarct. He underwent craniotomy by Dr Aden and clot removal. He is off sedation and opens eye and was answering yes and no . There is no seizure . He is extuabted and seems to stare and not following command , at time he would squeeze hand on left side. right side there is no movement. 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 DM, HTN, Brain bleed and old stroke S Neurological Examination( Limited Neuro exam) extubated. Alert opens eyes, no communication or spontaneous speech he do not follow command, he would squeeze left side moving left side more His vital is normal, no neck stiffness pupils is reactive, small, mild right facial palsy right sided hemiparesis Assessment: left basal ganglia bleed with intra ventricular extension. S/P Craniotomy on May 11 and clot removal. off sedation. He is now extubated, and clinically stable, no evidence of seizure Plan: 1. repeat ct reviewed and neurosurgery consult appreciated, no active intervention at this time 2. eeg for rule out any subclinical status 3. continue icu are adn supportive care, given that he has bleed and acute neurosurgery intervention, suggest to hold aspirin for 7-10 days Will continue to follow with primary Thanking you so much Avelino Phoenix MD
[2018-05-14] MEDS: DEXTROSE 5%-WATER - 1,000 ML IV SCH (17:47)
[2018-05-14] MEDS: ATORVASTATIN CA 80 MG TABLET (FP) PO SCH (21:21)
[2018-05-14] MEDS ORDERED: SUCCINYLCHOLINE CHLORIDE 200 MG/10 ML VIAL ONE ×3 (23:19→23:47)
[2018-05-14] MEDS ORDERED: ETOMIDATE 20 MG/10 ML AMPUL IVPUSH ONE ×4 (23:20→23:55)
[2018-05-14] MEDS ORDERED: PROPOFOL 1,000,000 MCG/100 ML VIAL ONE (23:20)
[2018-05-14] MEDS: PROPOFOL 1,000,000 MCG/100 ML VIAL IVPB SCH (23:45)
[2018-05-14] MEDS ORDERED: SUCCINYLCHOLINE CHLORIDE 200 MG/10 ML VIAL IVPUSH ONE (23:56)
--- NOTE | 2018-05-14 23:59 | PN ---
Progress Note (short form) - Note Progress Note: Patient tachypneic in the 40s-50's and desaturating to 81% on 6L NC, unresponsive and in respiratory distress with labored breathing Placed Ventimask and patient 02 sat was 83% with RR in the 40's Non-rebreather placed and patient was saturating 99% but still tachypneic in the 40's-50's and became diaphoretic and tachycardic Called Anesthesia for intubation but was unable to come due to being in a middle of a Called EM physician, Dr. Carlos, and successfully intubated patient. Patient was given 20/100 of Etomidate and Succinylcholine. (+) ETCO2, Breath sounds bilaterally, Secured ET tube. Chest X-Ray and ABG ordered
[2018-05-15 00:34] LABS: ARTERIAL BLD GAS O2 SATURATION 95.8 % (90-98.9); ARTERIAL BLOOD GAS BASE EXCESS 1.6 meq/l (-2-2); ARTERIAL BLOOD GAS PCO2 42.6 mmHg (35-45); ARTERIAL BLOOD GAS PO2 85.2 mmHg (80-100)
[2018-05-15 00:44] LABS: ALLENS TEST POSITIVE
[2018-05-15] MEDS ORDERED: ACETAMINOPHEN 1000 MG/100 ML VIAL (NON FORMULARY) IVPB PRN (02:05)
[2018-05-15] MEDS: DEXAMETHASONE SOD PHOSPHATE 4 MG/1 ML VIAL IVPUSH SCH ×3 (02:52→17:07)
[2018-05-15] MEDS ORDERED: ALBUTEROL SO4 0.083% IH SOL 2.5 MG/3 ML VIAL.NEB. NEB PRN (04:30)
--- NOTE | 2018-05-15 04:49 | PROC ---
Intubation - Intubation Reason for Intubation: Respiratory Insufficiency, Respiratory Failure Time of Intubation: 23:45 Intubation Method: orotracheal Blade used: Glidescope Tube Size (cm): 7.5 Tube position confirmed by: Direct visualization, CO2 detector, Chest x-ray, Breath sounds Breath Sounds after Intubation: equal Post Intubation Xray: Yes
[2018-05-15] MEDS ORDERED: LABETALOL HCL 200 MG TABLET (FP) ONE ×3 (06:04→20:59)
[2018-05-15] MEDS ORDERED: LABETALOL HCL 100 MG TABLET (FP) ONE ×3 (06:04→20:59)
[2018-05-15 06:08] LABS: BASO % 0.2 % (0-2.0); HEMATOCRIT 33.9 % (35.4-49); HEMOGLOBIN 11.8 GM/dL (11.7-16.9); MCH 29.4 pg (25.7-33.7); MCHC 34.7 g/dl (32.0-35.9); MEAN CELL VOLUME 84.8 fl (80-96); MEAN PLT VOLUME 9.9 fl (7.5-11.1); MONO % 5.4 % (3.8-10.2); NEUT % 89.4 % (42.8-82.8); PLATELET COUNT 179 K/MM3 (134-434); RDW 14.3 % (11.9-15.9)
[2018-05-15] MEDS: INSULIN SLIDING SCALE (NOVOLOG) 1 VIAL SQ SCH ×4 (06:29→21:28)
[2018-05-15] MEDS: DOCUSATE SODIUM 100 MG CAPSULE (FP) PO SCH ×3 (06:29→21:04)
[2018-05-15] MEDS: LABETALOL HCL 200 MG, LABETALOL HCL 100 MG PO SCH ×3 (06:29→21:05)
[2018-05-15] MEDS: HEPARIN NA (PORCINE) 5,000 UNITS/ML 1ML VIAL SQ SCH ×3 (06:29→21:04)
[2018-05-15 06:33] LABS: ALBUMIN 2.6 g/dl (3.4-5.0); ALK PHOS 181 U/L (45-117); ANION GAP 10 MMOL/L (8-16); BILIRUBIN,TOTAL 0.7 mg/dL (0.2-1); BLOOD UREA NITROGEN 62 mg/dL (7-18); CALCIUM 8.4 mg/dL (8.5-10.1); CHLORIDE 117 mmol/L (98-107); CO2 25 mmol/L (21-32); CREATININE 1.4 mg/dL (0.55-1.3); GLUCOSE,RANDOM 232 mg/dL (74-106); MAGNESIUM 2.5 mg/dL (1.8-2.4); PHOSPHOROUS 3.2 mg/dL (2.5-4.9); POTASSIUM 4.3 mmol/L (3.5-5.1); SGOT/AST 13 U/L (15-37); SGPT/ALT 27 U/L (13-61); SODIUM 152 mmol/L (136-145); TOT PROT 5.9 g/dl (6.4-8.2)
[2018-05-15 06:37] LABS: ARTERIAL BLD GAS O2 SATURATION 99.4 % (90-98.9); ARTERIAL BLOOD GAS BASE EXCESS 0.7 meq/l (-2-2); ARTERIAL BLOOD GAS PCO2 37.6 mmHg (35-45); ARTERIAL BLOOD GAS pH 7.43 (7.35-7.45)
[2018-05-15 06:53] LABS: ALLENS TEST POSITIVE
[2018-05-15] MEDS ORDERED: PIPERACILLIN/TAZOB 2.25 GM 2.25 GM in DEXTROSE 5%-WATER - 50 ML IVPB ONE (07:20)
[2018-05-15] MEDS ORDERED: ACETYLCYSTEINE 20% 200MG/ML 4 ML VIAL *FOR ORAL / INH USE ONLY NEB SCH (08:00)
--- NOTE | 2018-05-15 08:20 | PN ---
Progress Note (short form) - Note Progress Note: POD #4 Patient was reintubated POD #1 (for airway protection). Deep suctioning produced a mucous plug. He was extubated [place] and did well until late last night when he was reintubated at 11PM 2/2 tachypneic in the 40s-50's and desaturating to 81% on 6L NC, unresponsive and in respiratory distress with labored breathing . Currently on Propofol drip. Last Vital Signs Temp Pulse Resp BP Pulse Ox 102.9 106 H 16 114/63 100 05/15/18 06:00 05/15/18 06:58 05/15/18 07:50 05/15/18 06:58 05/15/18 00:38 Gen: sedated/intubated Head: joão intact. no signs of infection Neuro: unable to assess due to sedated state : ledezma to gravity LE: SCDs bilat <Andre Marquez P - Last Filed: 05/15/18 08:25> - Note Progress Note: Agree with above PLAN Pulmonary management per ICU team GI/DVT Prophylaxis Check pathology Physical Therapy and Rehab planning Dry dressing over incision May wean steroids <Yoel Valenzuela - Last Filed: 05/15/18 09:14> Problem List - Problems (1) S/P craniotomy Assessment/Plan: POD #4 s/p Left frontal craniotomy, excision of thalamic hermorrhagic mass ETT and Vent settings per Respiratory Team Tylenol 650 mg per rectum for fever > 100.3F f/u Fever work-up f/u CXR Cont to hold ASA for another 4 days Cont ICU management Cont Decadron and Keppra as ordered ID Consult Neurosurgery to cont following Above plan discussed with Dr. Valenzuela and agrees Code(s): Z98.890 - OTHER SPECIFIED POSTPROCEDURAL STATES <Andre Marquez - Last Filed: 05/15/18 08:25>
--- NOTE | 2018-05-15 09:05 | PN ---
Progress Note, Physician Chief Complaint: EVENTS AND NOTES REVIEWED PATIENT INTUBATED AND SEDATED S/P ICH WITH RIGHT THALAMIC MASS SURGICALLY REPAIRED ON 05/11/18 - Current Medication List Current Medications: Active Medications Acetaminophen (Tylenol -) 650 mg PO Q6H PRN PRN Reason: FEVER Last Admin: 05/14/18 08:24 Dose: 650 mg Acetaminophen (Ofirmev Injection -) 1,000 mg IVPB Q6H PRN PRN Reason: FEVER Last Admin: 05/15/18 06:52 Dose: 1,000 mg Acetylcysteine (Mucomyst 20 Oral / Inh Use Only*) 200 mg NEB RQID [facility] Albuterol Sulfate (Ventolin 0.083% Nebulizer Soln -) 1 amp NEB Q6H PRN PRN Reason: SHORT OF BREATH/WHEEZING Albuterol/Ipratropium (Duoneb -) 1 amp NEB RQID [facility] Last Admin: 05/14/18 20:34 Dose: 1 amp Amlodipine Besylate (Norvasc -) 10 mg PO DAILY [facility] Last Admin: 05/14/18 09:47 Dose: 10 mg Aspirin (Ecotrin -) 81 mg PO DAILY [facility] Atorvastatin Calcium (Lipitor -) 80 mg PO HS [facility] Last Admin: 05/14/18 21:21 Dose: 80 mg Dexamethasone Sodium Phosphate (Decadron Injection -) 4 mg IVPUSH Q8H-IV [facility] Last Admin: 05/15/18 02:52 Dose: 4 mg Docusate Sodium (Colace -) 100 mg PO TID [facility] Last Admin: 05/15/18 06:29 Dose: Not Given Fentanyl (Sublimaze Injection -) 50 mcg IVPUSH [id number] PRN PRN Reason: PAIN-PACU ORDER X 4 DOSES ONLY Last Admin: 05/11/18 20:55 Dose: 50 mcg Heparin Sodium (Porcine) (Heparin -) 5,000 unit SQ TID [facility] Last Admin: 05/15/18 06:29 Dose: 5,000 unit Dextrose (D5w -) 1,000 mls @ 33 mls/hr IV ASDIR [facility] Last Admin: 05/14/18 17:47 Dose: 33 mls/hr Propofol (Diprivan -) 1,000,000 mcg in 100 mls @ 2.507 mls/hr IVPB TITR [facility]; Protocol Last Titration: 05/15/18 00:29 Dose: 5 mcg/kg/min, 2.507 mls/hr Insulin Aspart (Novolog Vial Sliding Scale -) 1 vial SQ ACHS [facility]; Protocol Last Admin: 05/15/18 06:29 Dose: 6 units Labetalol HCl 200 mg/ (Labetalol HCl 100 mg) 300 mg PO TID [facility] Last Admin: 05/15/18 06:29 Dose: 300 mg Levetiracetam (Keppra Injection -) 500 mg IVPB BID [facility] Last Admin: 05/14/18 21:21 Dose: 500 mg Lisinopril (Prinivil) 20 mg PO DAILY [facility] Last Admin: 05/14/18 09:47 Dose: 20 mg Mupirocin (Bactroban Ointment (For Decolonization) -) 1 applic NS BID [facility] Stop: 05/16/18 21:59 Last Admin: 05/14/18 21:21 Dose: 1 applic Ondansetron HCl (Zofran Injection) 4 mg IVPUSH Q6H PRN PRN Reason: NAUSEA AND/OR VOMITING Last Admin: 05/11/18 19:00 Dose: 4 mg Pantoprazole Sodium (Protonix Iv) 40 mg IVPUSH DAILY [facility] Last Admin: 05/14/18 09:47 Dose: 40 mg - Objective Vital Signs: Vital Signs Temperature 102.9 F H 05/15/18 06:00 Pulse Rate 106 H 05/15/18 06:58 Respiratory Rate 16 05/15/18 07:50 Blood Pressure 114/63 05/15/18 06:58 O2 Sat by Pulse Oximetry (%) 100 05/15/18 00:38 Constitutional: Yes: Moderate Distress Eyes: Yes: Other HENT: Yes: Other (HEAD DRESSING CLEAN) Neck: Yes: WNL Respiratory: Yes: Mechanically Ventilated Gastrointestinal: Yes: Soft Genitourinary: Yes: Smith Present Musculoskeletal: Yes: Muscle Weakness Extremities: Yes: Other Integumentary: Yes: Other Wound/Incision: Yes: Dressing Dry and Intact Neurological: Yes: Other (SEDATED AT THIS TIME) Labs: CBC, BMP 05/15/18 05:30 05/15/18 05:30 INR, PTT INR 1.06 (0.83-1.09) 05/10/18 16:15 Problem List - Problems (1) Diabetes Code(s): E11.9 - TYPE 2 DIABETES MELLITUS WITHOUT COMPLICATIONS (2) Fall Code(s): W19.XXXA - UNSPECIFIED FALL, INITIAL ENCOUNTER Qualifiers: Encounter type: initial encounter Qualified Code(s): W19.XXXA - Unspecified fall, initial encounter (3) HTN (hypertension) Code(s): I10 - ESSENTIAL (PRIMARY) HYPERTENSION (4) Intracranial bleed Code(s): I62.9 - NONTRAUMATIC INTRACRANIAL HEMORRHAGE, UNSPECIFIED (5) Respiratory failure Code(s): J96.90 - RESPIRATORY FAILURE, UNSP, UNSP W HYPOXIA OR HYPERCAPNIA (6) S/P craniotomy Code(s): Z98.890 - OTHER SPECIFIED POSTPROCEDURAL STATES Assessment/Plan S/P CRANIOTOMY THALAMIC MASS, ICH POD#4 SEDATED AND INTUBATED ON VENT SUPPORT ONCE STABLE PRESSURES CAN TRY WEANING OFF OF VENT DVT PROPHYLAXIS IV ZOSYN MONITOR LABS NEUROLOGY/PULM F/U NEUROSURGERY CONSULT APPRECIATED
[2018-05-15] MEDS ORDERED: DEXTROSE 5%-WATER - 50 ML IVPB ONE ×3 (09:22→21:00)
[2018-05-15] MEDS ORDERED: PIPERACILLIN/TAZOBACTAM 2.25 GM VIAL IVPB ONE (09:22)
[2018-05-15] MEDS: PANTOPRAZOLE SODIUM 40 MG VIAL IVPUSH SCH (09:23)
[2018-05-15] MEDS: ASPIRIN COATED 81 MG TABLET.EC PO SCH ×2 (09:24→11:27)
[2018-05-15] MEDS: amLODIPine BESYLATE 10 MG TABLET (FP) PO SCH (09:24)
[2018-05-15] MEDS: levETIRAcetam 500 MG/5 ML INJECTION VIAL IVPB SCH ×2 (09:24→21:05)
[2018-05-15] MEDS: LISINOPRIL 20 MG TABLET (FP) PO SCH (09:24)
[2018-05-15] MEDS: MUPIROCIN 2% TOPICAL OINTMENT FOR DECOLONIZATION NS SCH ×2 (09:25→21:04)
--- NOTE | 2018-05-15 09:28 | PN ---
Progress Note (short form) - Note Progress Note: 67 year old male history of DM, Neuropathy, had recent brain bleed, he also have history of atrial fibrillation. Patient fell out of wheel chair. Patient is sleepy today, there is no documentation of seizure or fever. He has ct scan done showed left basal ganglia bleed and old right parietal lobe infarct. He underwent craniotomy by Dr Aden and clot removal. He was intubated last night and now off sedation, he was on sedation whole night . He seems to be sleepy and opens eye Neurological Examination( Limited Neuro exam) Intubated again off sedation for three hours Sleepy opens eyes, no communication or spontaneous speech he do not follow command, right sided hemiparesis His vital is normal, no neck stiffness pupils is reactive, small, mild right facial palsy Assessment: left basal ganglia bleed with intra ventricular extension. S/P Craniotomy on May 11 and clot removal. off sedation. Now intubated again and ct mclean done yesterday, Neurosurgery following him. Plan: 1. continue keppra for now, though would not require for detention. 2. eeg for rule out any subclinical status 3. continue icu are adn supportive care, given that he has bleed and acute neurosurgery intervention, suggest to hold aspirin for now Will continue to follow with primary Thanking you so much Avelino Phoenix MD
[2018-05-15] MEDS ORDERED: LACTATED RINGERS SOLUTION 1000 ML INFUS.BAG IV ONE (12:28)
--- NOTE | 2018-05-15 13:39 | PN ---
Physical Exam: SUBJECTIVE: Patient seen and examined at bedside. He was extubated on Tuesday bc he passed a weaning trial. He had agonal and labored breathing Tuesday night so he got re-intubated. CXR showed a dense left base which could be an infiltrate or atelectasis. Dr. Taveras came and assessed the patient. He believes the lung is the biggest ssue with the patient at the present time. OBJECTIVE: Vital Signs Period Temp Pulse Resp BP Sys/Goel Pulse Ox Last 24 Hr 98.1 F-102.9 F 83-115 15-39 93-174/62-108 98-100 GENERAL: The patient is intubated, not sedated, semi-awake, not alert or oriented. HEAD: Surgical head dressing. No erythematous areas. EYES: PERRL, sclera anicteric, conjunctiva clear. ENT: Ears normal, nares patent, oropharynx clear without exudates, moist mucous membranes. NECK: Trachea midline. LUNGS: Coarse breath sounds bilaterally with significant wheezes. no crackles. HEART: Regular rate and rhythm, S1, S2 without murmur, rub or gallop. ABDOMEN: Soft, nontender, nondistended, normoactive bowel sounds, no guarding, no rebound, no hepatosplenomegaly, no masses. EXTREMITIES: 2+ pulses, warm, well-perfused, no edema. NEUROLOGICAL: Cannot assess. PSYCH: Poor eye contact. SKIN: Warm, dry, normal turgor, no rashes or lesions noted Laboratory Results - last 24 hr 05/14/18 05/14/18 05/14/18 14:43 16:34 21:06 WBC RBC Hgb Hct MCV MCH MCHC RDW Plt Count MPV Absolute Neuts (auto) Neutrophils % Lymphocytes % Monocytes % Eosinophils % Basophils % Nucleated RBC % Anticoagulation Therapy Puncture Site Right radial ABG pH 7.45 ABG pCO2 at Pt Temp 37.9 ABG pO2 at Pt Temp 82.0 D ABG HCO3 26.0 ABG O2 Sat (Measured) 95.9 ABG O2 Content 13.8 L ABG Base Excess 2.5 H Oziel Test Positive O2 Delivery Device Oxygen Flow Rate Yes Vent Mode Vent Rate Mechanical Rate PEEP Pressure Support Vent Sodium Potassium Chloride Carbon Dioxide Anion Gap BUN Creatinine Creat Clearance w eGFR POC Glucometer [phone] Random Glucose Lactic Acid Calcium Phosphorus Magnesium Total Bilirubin AST ALT Alkaline Phosphatase Total Protein Albumin 05/15/18 05/15/18 05/15/18 00:15 05:30 05:30 WBC 9.0 RBC 4.00 Hgb 11.8 Hct 33.9 L MCV 84.8 MCH 29.4 MCHC 34.7 RDW 14.3 Plt Count 179 MPV 9.9 Absolute Neuts (auto) 8.1 H Neutrophils % 89.4 H Lymphocytes % 5.0 L Monocytes % 5.4 Eosinophils % 0.0 Basophils % 0.2 Nucleated RBC % 0 Anticoagulation Therapy No Result Required. Puncture Site Left brachial ABG pH 7.40 ABG pCO2 at Pt Temp 42.6 ABG pO2 at Pt Temp 85.2 ABG HCO3 26.0 ABG O2 Sat (Measured) 95.8 ABG O2 Content 13.7 L ABG Base Excess 1.6 Oziel Test Positive O2 Delivery Device Vent Oxygen Flow Rate 100% Vent Mode No Result Required. Vent Rate 16 Mechanical Rate Yes PEEP 5.0 Pressure Support Vent 450 Sodium 152 H Potassium 4.3 Chloride 117 H Carbon Dioxide 25 Anion Gap 10 BUN 62 H Creatinine 1.4 H Creat Clearance w eGFR 50.55 POC Glucometer Random Glucose 232 H Lactic Acid Calcium 8.4 L Phosphorus 3.2 Magnesium 2.5 H Total Bilirubin 0.7 AST 13 L ALT 27 Alkaline Phosphatase 181 H Total Protein 5.9 L Albumin 2.6 L 05/15/18 05/15/18 05/15/18 05:30 06:07 06:26 WBC RBC Hgb Hct MCV MCH MCHC RDW Plt Count MPV Absolute Neuts (auto) Neutrophils % Lymphocytes % Monocytes % Eosinophils % Basophils % Nucleated RBC % Anticoagulation Therapy Puncture Site No Result Required. ABG pH 7.43 ABG pCO2 at Pt Temp 37.6 ABG pO2 at Pt Temp 176.0 H* ABG HCO3 24.4 ABG O2 Sat (Measured) 99.4 H ABG O2 Content 15.5 ABG Base Excess 0.7 Oziel Test Positive O2 Delivery Device Vent Oxygen Flow Rate 100% Vent Mode A/c Vent Rate 16 Mechanical Rate Yes PEEP 5.0 Pressure Support Vent 450 Sodium Potassium Chloride Carbon Dioxide Anion Gap BUN Creatinine Creat Clearance w eGFR POC Glucometer [phone] Random Glucose Lactic Acid 0.8 Calcium Phosphorus Magnesium Total Bilirubin AST ALT Alkaline Phosphatase Total Protein Albumin 05/15/18 11:30 WBC RBC Hgb Hct MCV MCH MCHC RDW Plt Count MPV Absolute Neuts (auto) Neutrophils % Lymphocytes % Monocytes % Eosinophils % Basophils % Nucleated RBC % Anticoagulation Therapy Puncture Site ABG pH ABG pCO2 at Pt Temp ABG pO2 at Pt Temp ABG HCO3 ABG O2 Sat (Measured) ABG O2 Content ABG Base Excess Oziel Test O2 Delivery Device Oxygen Flow Rate Vent Mode Vent Rate Mechanical Rate PEEP Pressure Support Vent Sodium Potassium Chloride Carbon Dioxide Anion Gap BUN Creatinine Creat Clearance w eGFR POC Glucometer [phone] Random Glucose Lactic Acid Calcium Phosphorus Magnesium Total Bilirubin AST ALT Alkaline Phosphatase Total Protein Albumin Active Medications Generic Name Dose Route Start Last Admin Trade Name Freq PRN Reason Stop Dose Admin Acetaminophen 650 mg 05/13/18 10:24 05/14/18 08:24 Tylenol - PO 650 mg Q6H PRN Administration FEVER Acetaminophen 1,000 mg 05/15/18 02:05 05/15/18 06:52 Ofirmev Injection - IVPB 1,000 mg Q6H PRN Administration FEVER Amlodipine Besylate 10 mg 05/13/18 10:00 05/15/18 09:24 Norvasc - PO 10 mg DAILY HIEN Administration Aspirin 81 mg 05/15/18 10:00 05/15/18 11:27 Ecotrin - PO 81 mg DAILY HIEN Administration Atorvastatin Calcium 80 mg 05/13/18 22:00 05/14/18 21:21 Lipitor - PO 80 mg HS HIEN Administration Dexamethasone Sodium Phosphate 4 mg 05/12/18 02:00 05/15/18 09:24 Decadron Injection - IVPUSH 4 mg Q8H-IV HIEN Administration Docusate Sodium 100 mg 05/11/18 22:00 05/15/18 06:29 Colace - PO Not Given TID HIEN Fentanyl 50 mcg 05/11/18 17:57 05/11/18 20:55 Sublimaze Injection - IVPUSH 50 mcg [id number] PRN Administration PAIN-PACU ORDER X 4 DOSES ONLY Heparin Sodium (Porcine) 5,000 unit 05/11/18 22:00 05/15/18 13:15 Heparin - SQ 5,000 unit TID HIEN Administration Dextrose 1,000 mls @ 33 mls/hr 05/14/18 17:22 05/14/18 17:47 D5w - IV 33 mls/hr ASDIR HIEN Administration Propofol 1,000,000 mcg in 100 mls @ 2.507 mls/hr 05/14/18 23:45 05/15/18 00: 29 Diprivan - IVPB 5 mcg/kg/min TITR HIEN 2.507 mls/hr Titration Protocol 5 MCG/KG/MIN Insulin Aspart 1 vial 05/12/18 07:00 05/15/18 11:33 Novolog Vial Sliding Scale - SQ 4 units ACHS HIEN Administration Protocol Labetalol HCl 200 mg/ 300 mg 05/13/18 14:00 05/15/18 06:29 Labetalol HCl 100 mg PO 300 mg TID HIEN Administration Levetiracetam 500 mg 05/11/18 22:00 05/15/18 09:24 Keppra Injection - IVPB 500 mg BID HIEN Administration Lisinopril 20 mg 05/13/18 10:00 05/15/18 09:24 Prinivil PO 20 mg DAILY HIEN Administration Mupirocin 1 applic 05/11/18 22:00 05/15/18 09:25 Bactroban Ointment (For Decolonization) - NS 05/16/18 21:59 1 applic BID HIEN Administration Ondansetron HCl 4 mg 05/11/18 17:57 05/11/18 19:00 Zofran Injection IVPUSH 4 mg Q6H PRN Administration NAUSEA AND/OR VOMITING Pantoprazole Sodium 40 mg 05/12/18 10:00 05/15/18 09:23 Protonix Iv IVPUSH 40 mg DAILY HIEN Administration ASSESSMENT/PLAN: Assessment: 67 yo M w a hx of AFIB, recent hemorrhagic CVA, T2DM is here s/p Left frontal craniotomy and blood clot removal after being operated on by Dr. Taveras. There are X-ray changes which suggest an infiltrate or atelectasis in the left base. Plan: Cardio: - Strict BP control with systolic < 130 - 500 ml LR for hydration today - Lebatalol for elevated BP or rate control PRN ID: - ID consulted - Possible PNA - +/- Abx for HCAP Pulm: - Intubated - ABG BID - DC mucomist Neuro: - Holding sedation to assess mental status - AMS of unclear etiology. - frequent neuroexams - Keppra 500 mg for seizure prohylaxis. - Head of the bead 30 degrees. GI: - Aspiration precautions. - Protonix 40 - Zofran PRN Endo: - Decadron - Sliding scale - frequent glucose checks Prophylaxis: - Aspiration precautions. - Heparin 5000 TID F/E/N: - tube feeds - glucerna - Replete lytes PRN - No standing fluids Code Status: - Full code Dispo: - Patient will continue to receive monitoring in the ICU. Visit type - Emergency Visit Emergency Visit: Yes ED Registration Date: 05/10/18 Care time: The patient presented to the Emergency Department on the above date and was hospitalized for further evaluation of their emergent condition. - New Patient This patient is new to me today: No - Critical Care Critical Care patient: Yes Total Critical Care Time (in minutes): 36 Critical Care Statement: The care of this patient involved high complexity decision making to prevent further life threatening deterioration of the patient 's condition and/or to evaluate & treat vital organ system(s) failure or risk of failure.
[2018-05-15] MEDS: DEXTROSE 5%-WATER - 1,000 ML IV SCH (16:55)
[2018-05-15] MEDS: ACETAMINOPHEN 325 MG TABLET (FP) PO PRN (17:31)
[2018-05-15] MEDS ORDERED: PIPERACILLIN/TAZOBACTAM 3.375 GM VIAL IVPB ONE ×2 (18:12→21:00)
[2018-05-15] MEDS: PIPERACILLIN/TAZOB 3.375 GM 3.375 GM in DEXTROSE 5%-WATER - 50 ML IVPB SCH (18:16)
[2018-05-15] MEDS: VANCOMYCIN 1 GRAM (PRE-DOCKED) 1,000 MG/250 ML BAG IVPB SCH (18:16)
--- NOTE | 2018-05-15 19:20 | PN ---
Progress Note (short form) - Note Progress Note: ID consult dictated Probable aspiration vs. HCAP S/P craniotomy Hx AVR Pending c/s empiric zosyn/ vancomycin Critical care time 35min
[2018-05-15] MEDS: ATORVASTATIN CA 80 MG TABLET (FP) PO SCH (21:05)
[2018-05-16] MEDS: PIPERACILLIN/TAZOB 3.375 GM 3.375 GM in DEXTROSE 5%-WATER - 50 ML IVPB SCH ×3 (02:23→17:38)
[2018-05-16] MEDS: DEXAMETHASONE SOD PHOSPHATE 4 MG/1 ML VIAL IVPUSH SCH ×2 (02:23→09:48)
[2018-05-16] MEDS: PROPOFOL 1,000,000 MCG/100 ML VIAL IVPB SCH (02:24)
[2018-05-16] MEDS ORDERED: DEXTROSE 5%-WATER - 50 ML IVPB ONE ×4 (04:14→21:15)
[2018-05-16] MEDS ORDERED: PIPERACILLIN/TAZOBACTAM 3.375 GM VIAL IVPB ONE ×4 (04:14→21:15)
[2018-05-16] MEDS: LABETALOL HCL 200 MG, LABETALOL HCL 100 MG PO SCH ×3 (05:24→21:29)
[2018-05-16] MEDS: HEPARIN NA (PORCINE) 5,000 UNITS/ML 1ML VIAL SQ SCH ×3 (05:24→21:26)
[2018-05-16] MEDS: DOCUSATE SODIUM 100 MG CAPSULE (FP) PO SCH ×3 (05:24→21:25)
[2018-05-16] MEDS ORDERED: LABETALOL HCL 200 MG TABLET (FP) ONE ×3 (05:26→21:14)
[2018-05-16] MEDS ORDERED: LABETALOL HCL 100 MG TABLET (FP) ONE ×3 (05:27→21:14)
[2018-05-16] MEDS: VANCOMYCIN 1 GRAM (PRE-DOCKED) 1,000 MG/250 ML BAG IVPB SCH (05:28)
[2018-05-16] MEDS: INSULIN SLIDING SCALE (NOVOLOG) 1 VIAL SQ SCH ×3 (06:02→21:28)
[2018-05-16 06:18] LABS: BASO % 0.2 % (0-2.0); HEMATOCRIT 30.2 % (35.4-49); HEMOGLOBIN 10.5 GM/dL (11.7-16.9); LYMPH % 5.6 % (8-40); MCH 29.8 pg (25.7-33.7); MCHC 34.6 g/dl (32.0-35.9); MEAN CELL VOLUME 86.1 fl (80-96); MEAN PLT VOLUME 10.9 fl (7.5-11.1); MONO % 3.3 % (3.8-10.2); NEUT % 90.9 % (42.8-82.8); PLATELET COUNT 142 K/MM3 (134-434); RBC 3.51 M/mm3 (4.00-5.60); RDW 14.9 % (11.9-15.9); WHITE BLOOD COUNT 8.1 K/mm3 (4.0-10.0)
[2018-05-16 07:08] LABS: ARTERIAL BLD GAS O2 SATURATION 99.1 % (90-98.9); ARTERIAL BLOOD GAS BASE EXCESS -1.3 meq/l (-2-2); ARTERIAL BLOOD GAS PCO2 38.3 mmHg (35-45); ARTERIAL BLOOD GAS pH 7.39 (7.35-7.45)
[2018-05-16 07:25] LABS: ALLENS TEST POSITIVE
--- NOTE | 2018-05-16 07:39 | CONS ---
INFECTIOUS DISEASE CONSULTATION DATE OF CONSULTATION: 05/15/2018 The patient is a 67-year-old male who is evaluated for fever. He recently sustained a hemorrhagic CVA, for which he required placement in a half-way facility for rehabilitation. At the facility, he fell, sustaining head trauma. An MRI was performed and showed a left thalamic hemorrhage. He was taken to the operating room on May 11, 2018, where a left frontal craniotomy and excision of thalamic hemorrhagic mass were performed. Postoperatively, he developed weaning difficulties. He required re-intubation on several occasions, developed atelectasis secondary to mucous plugging. Patient is now febrile to 102.9. At the present time, he is intubated in the intensive care unit. He is in no acute respiratory distress. He is sedated on the ventilator. PAST MEDICAL HISTORY: Positive for atrial fibrillation, stroke, diabetes mellitus, coronary artery disease. PAST SURGICAL HISTORY: Status post coronary artery bypass and aortic valve replacement. ALLERGIES: No known allergies. MEDICATIONS: Include Zofran, dexamethasone, Tylenol, lisinopril, heparin, Keppra, labetalol, amlodipine, propofol, Lipitor, Ecotrin, fentanyl, Protonix. SOCIAL HISTORY: Was living at home with family members prior to admission, was in short-term rehabilitation status post stroke. Nonsmoker, nondrinker. SYSTEMS REVIEW: Neurologic: As per HPI. Cardiac: Positive for coronary artery disease, bypass surgery, and valve replacement. Respiratory: As per HPI. Gastrointestinal: Negative vomiting or diarrhea. Genitourinary: Negative for urinary tract infection. LABORATORY DATA: White count 9.0; neutrophils 89, lymphocytes 5, monocytes 5; hematocrit 33.9; platelet count 179. Sodium 152, BUN 62, creatinine 1.4. Total bilirubin 0.7, alkaline phosphatase 181, AST 13. Cultures are pending. Urinalysis: White cells 2. Chest x-ray shows increased markings at the left base. PHYSICAL EXAMINATION: General: He is sedated on the ventilator. Vital Signs: Temperature 98.5, T-max 102.9; blood pressure 100/58; pulse 88, regular; respirations 18 per minute. HEENT: Sclerae anicteric. Patient is orally intubated. Craniotomy wound is healing well without evidence of infection. Heart: Sounds S1, S2. A 2/6 richards systolic murmur. Lungs: Air entry bilaterally. Chest: A healed sternotomy scar. Abdomen: Soft. No tenderness elicited. No mass, rebound, or rigidity. Extremities: Edema 1+. IMPRESSION: 1. Probable aspiration versus healthcare-acquired left lower lobe pneumonia. 2. Fever, rule out sepsis secondary to pneumonia. 3. Status post craniotomy and evacuation of hemorrhagic mass. 4. Status post hemorrhagic stroke. 5. History of aortic valve replacement. 6. Azotemia. 7. Hypernatremia. We will repeat blood cultures in light of recurrent fever, obtain suction sputum C&S and urine legionella/ antigens. Empiric antibiotic coverage with vancomycin and Zosyn pending sepsis workup. Ventilatory support. Prognosis is guarded. CRITICAL CARE TIME SPENT: Thirty-five minutes. Thank you for the kind referral. GARY MERRILL M.D. [id number]
[2018-05-16 08:09] LABS: ALBUMIN 2.2 g/dl (3.4-5.0); ALK PHOS 146 U/L (45-117); ANION GAP 7 MMOL/L (8-16); BILIRUBIN,TOTAL 0.6 mg/dL (0.2-1); BLOOD UREA NITROGEN 98 mg/dL (7-18); CALCIUM 8.2 mg/dL (8.5-10.1); CHLORIDE 114 mmol/L (98-107); CO2 26 mmol/L (21-32); CREATININE 2.5 mg/dL (0.55-1.3); MAGNESIUM 3.1 mg/dL (1.8-2.4); PHOSPHOROUS 5.6 mg/dL (2.5-4.9); POTASSIUM 4.8 mmol/L (3.5-5.1); SGOT/AST 18 U/L (15-37); SGPT/ALT 24 U/L (13-61); SODIUM 147 mmol/L (136-145); TOT PROT 5.5 g/dl (6.4-8.2)
[2018-05-16] MEDS ORDERED: LACTATED RINGERS SOLUTION 1000 ML INFUS.BAG IV ONE (08:14)
[2018-05-16 08:36] LABS: GLUCOSE,RANDOM 363 mg/dL (74-106)
--- NOTE | 2018-05-16 09:29 | PN ---
Progress Note (short form) - Note Progress Note: POD 5 Pt seen and examined. Remains intubated/sedated. Vital Signs Temp 98 F 05/16/18 06:00 Pulse 86 05/16/18 08:00 Resp 16 05/16/18 08:00 BP 97/54 L 05/16/18 08:00 Pulse Ox 98 05/16/18 02:49 Intake & Output 05/15/18 05/15/18 05/16/18 11:59 23:59 11:59 Intake Total 116 1753 766 Output Total 1300 3350 150 Balance -1184 -1597 616 Weight 175 lb 4.8 oz 175 lb 4.8 oz Intake: IV 16 1253 36 D5w - 1,000 ml @ 33 mls/ 33 hr IV ASDIR HIEN Rx#: [id number] D5w - 1,000 ml @ 75 mls/ 669 hr IV .[id number] HIEN Rx#: [id number] DIPRIVAN - 1,000,000 mcg 16 16 36 In 100 ml @ 5 MCG/KG/MIN 2.507 mls/hr IVPB TITR HIEN Rx#:[id number] LR 500 NS 35 IVPB 100 300 250 Tube Feeding 360 Tube Irrigant 200 120 Output: Urine 1300 3350 150 Smith 1300 150 150 Void 3200 Other: Voiding Method Indwelling Catheter Indwelling Catheter Bowel Movement No No Body Mass Index (BMI) 25.8 Weight Measurement Method [facility] CBC, BMP 05/16/18 05:30 05/16/18 05:30 Gen: intubated, sedated Head: Dressing c/d/i Neuro: withdraws to painful stimuli. A/P: 67 y/o M w/ PMHx AFIB, recent hemorrhagic CVA, T2DM now POD 5, s/p Left frontal craniotomy, excision of thalamic hemorrhagic mass. Pt was reintubated POD #1 (for airway protection)). Deep suctioning produced a mucous plug. He was extubated Tuesday, reintubated Tuesday night 2/2 tachypneic in the 40s-50's and desaturating to 81% on 6L NC, unresponsive and in respiratory distress with labored breathing . Plan to wean sedation, attempt extubation today. Pulmonary management per ICU team GI/DVT Prophylaxis F/U pathology Physical Therapy and Rehab planning Dry dressing over incision, change prn May wean steroids Tylenol 650 mg per rectum for fever > 100.3F f/u Fever work-up Cont to hold ASA for another 4 days Cont ICU management Cont Xavippra as ordered ID Consult Neurosurgery to cont following discussed with attending Dr Choi
[2018-05-16] MEDS: PANTOPRAZOLE SODIUM 40 MG VIAL IVPUSH SCH (09:48)
[2018-05-16] MEDS: levETIRAcetam 500 MG/5 ML INJECTION VIAL IVPB SCH ×2 (09:48→21:26)
[2018-05-16] MEDS: LISINOPRIL 20 MG TABLET (FP) PO SCH (09:49)
[2018-05-16] MEDS: amLODIPine BESYLATE 10 MG TABLET (FP) PO SCH (09:49)
[2018-05-16] MEDS: MUPIROCIN 2% TOPICAL OINTMENT FOR DECOLONIZATION NS SCH (09:49)
[2018-05-16] MEDS: ASPIRIN COATED 81 MG TABLET.EC PO SCH (09:49)
--- NOTE | 2018-05-16 10:11 | PN ---
Progress Note, Physician History of Present Illness: Sedated on ventilator Low grade temp overnight WBC 8.1 Cultures pending Bump in Cr noted 1.4---> 2.5 - Current Medication List Current Medications: Active Medications Acetaminophen (Tylenol -) 650 mg PO Q6H PRN PRN Reason: FEVER Last Admin: 05/15/18 17:31 Dose: 650 mg Amlodipine Besylate (Norvasc -) 10 mg PO DAILY [facility] Last Admin: 05/16/18 09:49 Dose: 10 mg Aspirin (Ecotrin -) 81 mg PO DAILY [facility] Last Admin: 05/16/18 09:49 Dose: 81 mg Atorvastatin Calcium (Lipitor -) 80 mg PO HS [facility] Last Admin: 05/15/18 21:05 Dose: 80 mg Dexamethasone Sodium Phosphate (Decadron Injection -) 4 mg IVPUSH Q8H-IV HIEN Last Admin: 05/16/18 09:48 Dose: 4 mg Docusate Sodium (Colace -) 100 mg PO TID [facility] Last Admin: 05/16/18 05:24 Dose: Not Given Fentanyl (Sublimaze Injection -) 50 mcg IVPUSH [id number] PRN PRN Reason: PAIN-PACU ORDER X 4 DOSES ONLY Last Admin: 05/11/18 20:55 Dose: 50 mcg Heparin Sodium (Porcine) (Heparin -) 5,000 unit SQ TID [facility] Last Admin: 05/16/18 05:24 Dose: 5,000 unit Dextrose (D5w -) 1,000 mls @ 33 mls/hr IV ASDIR [facility] Last Admin: 05/15/18 16:55 Dose: Not Given Propofol (Diprivan -) 1,000,000 mcg in 100 mls @ 2.507 mls/hr IVPB TITR [facility]; Protocol Last Admin: 05/16/18 02:24 Dose: 5 mcg/kg/min, 2.507 mls/hr Piperacillin Sod/Tazobactam (Sod 3.375 gm/ Dextrose) 50 mls @ 100 mls/hr IVPB Q8H-IV [facility]; Protocol Last Admin: 05/16/18 09:48 Dose: 100 mls/hr Insulin Aspart (Novolog Vial Sliding Scale -) 1 vial SQ ACHS [facility]; Protocol Last Admin: 05/16/18 06:02 Dose: 8 units Labetalol HCl 200 mg/ (Labetalol HCl 100 mg) 300 mg PO TID [facility] Last Admin: 05/16/18 05:24 Dose: 300 mg Levetiracetam (Keppra Injection -) 500 mg IVPB BID [facility] Last Admin: 05/16/18 09:48 Dose: 500 mg Lisinopril (Prinivil) 20 mg PO DAILY [facility] Last Admin: 05/16/18 09:49 Dose: 20 mg Mupirocin (Bactroban Ointment (For Decolonization) -) 1 applic NS BID [facility] Stop: 05/16/18 21:59 Last Admin: 05/16/18 09:49 Dose: 1 applic Ondansetron HCl (Zofran Injection) 4 mg IVPUSH Q6H PRN PRN Reason: NAUSEA AND/OR VOMITING Last Admin: 05/11/18 19:00 Dose: 4 mg Pantoprazole Sodium (Protonix Iv) 40 mg IVPUSH DAILY [facility] Last Admin: 05/16/18 09:48 Dose: 40 mg - Objective Vital Signs: Vital Signs Temperature 98.9 F 05/16/18 09:58 Pulse Rate 88 05/16/18 09:58 Respiratory Rate 16 05/16/18 09:58 Blood Pressure 119/69 05/16/18 09:58 O2 Sat by Pulse Oximetry (%) 98 05/16/18 02:49 Constitutional: Yes: No Distress Eyes: Yes: Conjunctiva Clear HENT: Yes: Other (craniotomy surgical dressing in place) Cardiovascular: Yes: Regular Rate and Rhythm, Murmur, S1, S2 Respiratory: Yes: Mechanically Ventilated Gastrointestinal: Yes: Normal Bowel Sounds, Soft. No: Tenderness Edema: No Labs: CBC, BMP 05/16/18 05:30 05/16/18 05:30 INR, PTT INR 1.06 (0.83-1.09) 05/10/18 16:15 Assessment/Plan Probable aspiration vs. HCAP LLL Respiratory failure S/P craniotomy POD # 5 S/A AVR Azotemia Await c/s Continue zosyn Hold vancomycin Check random level am
[2018-05-16 11:29] LABS: PLATELET ESTIMATE SLT DECREASE
[2018-05-16] MEDS ORDERED: LACTATED RINGERS SOLUTION 1,000 ML/1,000 ML INFUS.BAG IV SCH (11:45)
[2018-05-16] MEDS: INSULIN (LEVEMIR) 100 UNITS/ML UNITS SQ SCH ×2 (14:34→21:27)
--- NOTE | 2018-05-16 14:36 | PN ---
Teaching Attending Note Name of Resident: Can Ledbetter ATTENDING PHYSICIAN STATEMENT I saw and evaluated the patient. I reviewed the resident's note and discussed the case with the resident. I agree with the resident's findings and plan as documented. SUBJECTIVE: Patient seen and examined in the ICU. Remains intubated and sedated on propofol. AC Mode of vent, 40% FiO2. No pressors. Intake & Output 05/14/18 05/14/18 05/15/18 05/16/18 00:59 23:59 23:59 23:59 Intake Total 1869 766 Output Total 4650 150 Balance -2781 616 Weight 175 lb 4.8 oz 175 lb 4.8 oz Last Vital Signs Temp Pulse Resp BP Pulse Ox 99.1 F 88 16 120/78 99 05/16/18 13:55 05/16/18 13:55 05/16/18 13:55 05/16/18 13:55 05/16/18 11:45 Active Medications Acetaminophen (Tylenol -) 650 mg PO Q6H PRN PRN Reason: FEVER Last Admin: 05/15/18 17:31 Dose: 650 mg Amlodipine Besylate (Norvasc -) 10 mg PO DAILY [facility] Last Admin: 05/16/18 09:49 Dose: 10 mg Aspirin (Ecotrin -) 81 mg PO DAILY [facility] Last Admin: 05/16/18 09:49 Dose: 81 mg Atorvastatin Calcium (Lipitor -) 80 mg PO HS [facility] Last Admin: 05/15/18 21:05 Dose: 80 mg Dexamethasone (Decadron -) 2 mg NGT Q8H-IV HIEN Docusate Sodium (Colace -) 100 mg PO TID [facility] Last Admin: 05/16/18 05:24 Dose: Not Given Fentanyl (Sublimaze Injection -) 50 mcg IVPUSH [id number] PRN PRN Reason: PAIN-PACU ORDER X 4 DOSES ONLY Last Admin: 05/11/18 20:55 Dose: 50 mcg Heparin Sodium (Porcine) (Heparin -) 5,000 unit SQ TID [facility] Last Admin: 05/16/18 05:24 Dose: 5,000 unit Propofol (Diprivan -) 1,000,000 mcg in 100 mls @ 2.507 mls/hr IVPB TITR [facility]; Protocol Last Admin: 05/16/18 02:24 Dose: 5 mcg/kg/min, 2.507 mls/hr Piperacillin Sod/Tazobactam (Sod 3.375 gm/ Dextrose) 50 mls @ 100 mls/hr IVPB Q8H-IV HIEN; Protocol Last Admin: 05/16/18 09:48 Dose: 100 mls/hr Lactated Ringer's (Lactated Ringers Solution) 1,000 ml in 1,000 mls @ 33 mls/ hr IV ASDIR [facility] Insulin Aspart (Novolog Vial Sliding Scale -) 1 vial SQ ACHS [facility]; Protocol Last Admin: 05/16/18 06:02 Dose: 8 units Insulin Detemir (Levemir Vial) 12 units SQ BID [facility] Labetalol HCl 200 mg/ (Labetalol HCl 100 mg) 300 mg PO TID [facility] Last Admin: 05/16/18 05:24 Dose: 300 mg Levetiracetam (Keppra Injection -) 500 mg IVPB BID [facility] Last Admin: 05/16/18 09:48 Dose: 500 mg Lisinopril (Prinivil) 20 mg PO DAILY [facility] Last Admin: 05/16/18 09:49 Dose: 20 mg Mupirocin (Bactroban Ointment (For Decolonization) -) 1 applic NS BID [facility] Stop: 05/16/18 21:59 Last Admin: 05/16/18 09:49 Dose: 1 applic Ondansetron HCl (Zofran Injection) 4 mg IVPUSH Q6H PRN PRN Reason: NAUSEA AND/OR VOMITING Last Admin: 05/11/18 19:00 Dose: 4 mg Pantoprazole Sodium (Protonix Iv) 40 mg IVPUSH DAILY [facility] Last Admin: 05/16/18 09:48 Dose: 40 mg GENERAL: Intubated and sedated HEAD: Surgical dressing c/d/i with no drainage EYES: Pupils equal and reactive ENT: Dry mucous membranes. NECK: (-) lymphadenopathy, JVD, or masses. LUNGS: Bilateral coarse rhonchi, vented HEART: Regular rate with Irregularly irregular rhythm, 3/5 systolic murmur. ABDOMEN: Soft, nontender, not distended, normoactive bowel sounds, no guarding, no rebound, no masses. No hepatomegaly or splenomegaly. MUSCULOSKELETAL: sedated UPPER EXTREMITIES: No peripheral edema. LOWER EXTREMITIES: No peripheral edema. NEUROLOGICAL: Sedated SKIN: Warm, dry, normal turgor, no rashes or lesions noted. Laboratory Results - last 24 hr 05/15/18 05/15/18 05/16/18 16:42 21:25 05:30 WBC 8.1 RBC 3.51 L Hgb 10.5 L Hct 30.2 L MCV 86.1 MCH 29.8 MCHC 34.6 RDW 14.9 Plt Count 142 D MPV 10.9 D Absolute Neuts (auto) 7.3 Neutrophils % 90.9 H Lymphocytes % 5.6 L Monocytes % 3.3 L Eosinophils % 0.0 Basophils % 0.2 Nucleated RBC % 0 Platelet Estimate Slt decrease Anticoagulation Therapy Puncture Site ABG pH ABG pCO2 at Pt Temp ABG pO2 at Pt Temp ABG HCO3 ABG O2 Sat (Measured) ABG O2 Content ABG Base Excess Oziel Test O2 Delivery Device Oxygen Flow Rate Vent Mode Vent Rate Mechanical Rate PEEP Pressure Support Vent Sodium Potassium Chloride Carbon Dioxide Anion Gap BUN Creatinine Creat Clearance w eGFR POC Glucometer 281.48991 344.88611 Random Glucose Calcium Phosphorus Magnesium Total Bilirubin AST ALT Alkaline Phosphatase Total Protein Albumin 05/16/18 05/16/18 05/16/18 05:30 05:57 06:00 WBC RBC Hgb Hct MCV MCH MCHC RDW Plt Count MPV Absolute Neuts (auto) Neutrophils % Lymphocytes % Monocytes % Eosinophils % Basophils % Nucleated RBC % Platelet Estimate Anticoagulation Therapy No Result Required. Puncture Site Right brachial ABG pH 7.39 ABG pCO2 at Pt Temp 38.3 ABG pO2 at Pt Temp 155.0 H* ABG HCO3 22.8 ABG O2 Sat (Measured) 99.1 H ABG O2 Content 13.2 L ABG Base Excess -1.3 Oziel Test Positive O2 Delivery Device Vent Oxygen Flow Rate 60 Vent Mode No Result Required. Vent Rate 16 Mechanical Rate No Result Required. PEEP 5.0 Pressure Support Vent 450 Sodium 147 H Potassium 4.8 Chloride 114 H Carbon Dioxide 26 Anion Gap 7 L BUN 98 H Creatinine 2.5 H Creat Clearance w eGFR 25.89 POC Glucometer [phone] Random Glucose 363 H* Calcium 8.2 L Phosphorus 5.6 H Magnesium 3.1 H Total Bilirubin 0.6 AST 18 ALT 24 Alkaline Phosphatase 146 H Total Protein 5.5 L Albumin 2.2 L ASSESSMENT/PLAN: Acute Respiratory Failure POD #5: Left frontal craniotomy, excision of thalamic hermorrhagic mass S/P fall Intraventricular hemorrhage DM LLL PNA / atelectasis / Effusion AMS QI Hyperglycemia ABX coverage Sedation vacation to assess mental status SBTs as tolerated Continue IVF for now Wean Decadron Aspiration precautions Glycemic control Enteral feeds Keppra 500mg IVP BID for seizure prophylaxis VTE prophylaxis BD TX ICU monitoring Dr Gatica - Critical Care Critical Care patient: Yes Total Critical Care Time (in minutes): 36 Critical Care Statement: The care of this patient involved high complexity decision making to prevent further life threatening deterioration of the patient 's condition and/or to evaluate & treat vital organ system(s) failure or risk of failure.
--- NOTE | 2018-05-16 14:37 | PN ---
Physical Exam: SUBJECTIVE: Patient seen and examined at bedside. He remains intubated and sedated. We have weaned sedation to assess mental status. He wakes up but does not respond to voice. We are giving him a CPAP trial for extubation. Patient will likely get extubated tomorrow. OBJECTIVE: Vital Signs Period Temp Pulse Resp BP Sys/Goel Pulse Ox Last 24 Hr 98 F-100.4 F 86-109 16-33 97-131/48-78 97-99 GENERAL: The patient is intubated, not sedated, awake, alert but not oriented, and in no significant distress. HEAD: Surgical head dressing. No erythematous areas. EYES: PERRL, sclera anicteric, conjunctiva clear. ENT: Ears normal, nares patent, oropharynx clear without exudates, moist mucous membranes. NECK: Trachea midline. LUNGS: Coarse breath sounds bilaterally. no crackles. HEART: Regular rate and rhythm, S1, S2 without murmur, rub or gallop. ABDOMEN: Soft, nontender, nondistended, normoactive bowel sounds, no guarding, no rebound, no hepatosplenomegaly, no masses. EXTREMITIES: 2+ pulses, warm, well-perfused, no edema. NEUROLOGICAL: Cannot assess. PSYCH: Poor eye contact. SKIN: Warm, dry, normal turgor, no rashes or lesions noted Laboratory Results - last 24 hr 05/15/18 05/15/18 05/16/18 16:42 21:25 05:30 WBC 8.1 RBC 3.51 L Hgb 10.5 L Hct 30.2 L MCV 86.1 MCH 29.8 MCHC 34.6 RDW 14.9 Plt Count 142 D MPV 10.9 D Absolute Neuts (auto) 7.3 Neutrophils % 90.9 H Lymphocytes % 5.6 L Monocytes % 3.3 L Eosinophils % 0.0 Basophils % 0.2 Nucleated RBC % 0 Platelet Estimate Slt decrease Anticoagulation Therapy Puncture Site ABG pH ABG pCO2 at Pt Temp ABG pO2 at Pt Temp ABG HCO3 ABG O2 Sat (Measured) ABG O2 Content ABG Base Excess Oziel Test O2 Delivery Device Oxygen Flow Rate Vent Mode Vent Rate Mechanical Rate PEEP Pressure Support Vent Sodium Potassium Chloride Carbon Dioxide Anion Gap BUN Creatinine Creat Clearance w eGFR POC Glucometer 281.35056 344.79455 Random Glucose Calcium Phosphorus Magnesium Total Bilirubin AST ALT Alkaline Phosphatase Total Protein Albumin 11/06/18 11/06/18 11/06/18 05:30 05:57 06:00 WBC RBC Hgb Hct MCV MCH MCHC RDW Plt Count MPV Absolute Neuts (auto) Neutrophils % Lymphocytes % Monocytes % Eosinophils % Basophils % Nucleated RBC % Platelet Estimate Anticoagulation Therapy No Result Required. Puncture Site Right brachial ABG pH 7.39 ABG pCO2 at Pt Temp 38.3 ABG pO2 at Pt Temp 155.0 H* ABG HCO3 22.8 ABG O2 Sat (Measured) 99.1 H ABG O2 Content 13.2 L ABG Base Excess -1.3 Oziel Test Positive O2 Delivery Device Vent Oxygen Flow Rate 60 Vent Mode No Result Required. Vent Rate 16 Mechanical Rate No Result Required. PEEP 5.0 Pressure Support Vent 450 Sodium 147 H Potassium 4.8 Chloride 114 H Carbon Dioxide 26 Anion Gap 7 L BUN 98 H Creatinine 2.5 H Creat Clearance w eGFR 25.89 POC Glucometer [phone] Random Glucose 363 H* Calcium 8.2 L Phosphorus 5.6 H Magnesium 3.1 H Total Bilirubin 0.6 AST 18 ALT 24 Alkaline Phosphatase 146 H Total Protein 5.5 L Albumin 2.2 L Active Medications Generic Name Dose Route Start Last Admin Trade Name Freq PRN Reason Stop Dose Admin Acetaminophen 650 mg 05/13/18 10:24 05/15/18 17:31 Tylenol - PO 650 mg Q6H PRN Administration FEVER Amlodipine Besylate 10 mg 05/13/18 10:00 05/16/18 09:49 Norvasc - PO 10 mg DAILY HIEN Administration Aspirin 81 mg 05/15/18 10:00 05/16/18 09:49 Ecotrin - PO 81 mg DAILY HIEN Administration Atorvastatin Calcium 80 mg 05/13/18 22:00 05/15/18 21:05 Lipitor - PO 80 mg HS HIEN Administration Dexamethasone 2 mg 05/16/18 18:00 Decadron - NGT Q8H-IV HIEN Docusate Sodium 100 mg 05/11/18 22:00 05/16/18 05:24 Colace - PO Not Given TID HIEN Fentanyl 50 mcg 05/11/18 17:57 05/11/18 20:55 Sublimaze Injection - IVPUSH 50 mcg [id number] PRN Administration PAIN-PACU ORDER X 4 DOSES ONLY Heparin Sodium (Porcine) 5,000 unit 05/11/18 22:00 05/16/18 05:24 Heparin - SQ 5,000 unit TID HIEN Administration Propofol 1,000,000 mcg in 100 mls @ 2.507 mls/hr 05/14/18 23:45 05/16/18 02: 24 Diprivan - IVPB 5 mcg/kg/min TITR HIEN 2.507 mls/hr Administration Protocol 5 MCG/KG/MIN Piperacillin Sod/Tazobactam 50 mls @ 100 mls/hr 05/15/18 18:00 05/16/18 09:48 Sod 3.375 gm/ Dextrose IVPB 100 mls/hr Q8H-IV HIEN Administration Protocol Lactated Ringer's 1,000 ml in 1,000 mls @ 33 mls/hr 05/16/18 11:45 Lactated Ringers Solution IV ASDIR [facility]EN Insulin Aspart 1 vial 05/12/18 07:00 05/16/18 06:02 Novolog Vial Sliding Scale - SQ 8 units ACHS HIEN Administration Protocol Insulin Detemir 12 units 05/16/18 12:45 Levemir Vial SQ BID [facility] Labetalol HCl 200 mg/ 300 mg 05/13/18 14:00 05/16/18 05:24 Labetalol HCl 100 mg PO 300 mg TID HIEN Administration Levetiracetam 500 mg 05/11/18 22:00 05/16/18 09:48 Keppra Injection - IVPB 500 mg BID HIEN Administration Lisinopril 20 mg 05/13/18 10:00 05/16/18 09:49 Prinivil PO 20 mg DAILY HIEN Administration Mupirocin 1 applic 05/11/18 22:00 05/16/18 09:49 Bactroban Ointment (For Decolonization) - NS 05/16/18 21:59 1 applic BID HIEN Administration Ondansetron HCl 4 mg 05/11/18 17:57 05/11/18 19:00 Zofran Injection IVPUSH 4 mg Q6H PRN Administration NAUSEA AND/OR VOMITING Pantoprazole Sodium 40 mg 05/12/18 10:00 05/16/18 09:48 Protonix Iv IVPUSH 40 mg DAILY HIEN Administration ASSESSMENT/PLAN: Assessment: 67 yo M w a hx of AFIB, recent hemorrhagic CVA, T2DM is here s/p Left frontal craniotomy and blood clot removal after being operated on by Dr. Taveras. There are X-ray changes which suggest an infiltrate or atelectasis in the left base. We started him on Glucerna Tube feeds yesterday. Of note, today his glucose is 392. We are planning to taper his decadron dose to 2Q8 and stopping D5 administration. He has an QI. BUN has increased to 98 and Cr has went up to 2.5 - Nephro is on the case. Dr. Davies recommended to get urine lites and have a kidney US ordered. We woke him up to assess the mental status. He is awake, alert, and tries to pull out his ET tube. We had to apply a restraint to his left wrist. - We will extubate him tomorrow. Plan: Cardio: - Strict BP control with systolic < 130 - 500 ml LR for hydration again today. - Based on sodium of 147 he likely has a fluid deficit of a liter. Also has a BUN/Cr ration greater than 20:1 - Lebatalol for elevated BP or rate control PRN ID: - ID consulted - Probable PNA - Abx for HCAP vs aspiration. - He also has a positive Strep pneumo in the urine. - Vanc and zosyn being given Pulm: - Intubated - ABG BID - Plan is to extubate him tomorrow Neuro: - Daily sedation vacations to assess mental status - Keppra 500 mg for seizure prohylaxis. - Head of the bead 30 degrees. GI: - Aspiration precautions. - Protonix 40 - Zofran PRN Endo: - Tapering decadron to 2Q8 - Sliding scale - frequent glucose checks Prophylaxis: - Aspiration precautions. - Heparin 5000 TID F/E/N: - tube feeds - glucerna - Replete lytes PRN - LR 33 mls/hr Code Status: - Full code Dispo: - Patient will continue to receive monitoring in the ICU. Visit type - Emergency Visit Emergency Visit: Yes ED Registration Date: 05/10/18 Care time: The patient presented to the Emergency Department on the above date and was hospitalized for further evaluation of their emergent condition. - New Patient This patient is new to me today: No - Critical Care Critical Care patient: Yes Total Critical Care Time (in minutes): 36 Critical Care Statement: The care of this patient involved high complexity decision making to prevent further life threatening deterioration of the patient 's condition and/or to evaluate & treat vital organ system(s) failure or risk of failure.
--- NOTE | 2018-05-16 15:18 | CONSULT ---
Consultation: CONSULT REQUEST: Nephrology Resident HISTORY OF PRESENT ILLNESS: 67yo M with h/o Atrial fibrillation, CVA (hemorrhagic in nature ~1 week prior to admission), and DM who presented to the hospital due to fall and was admitted in the ICU due to intraventricular hemorrhage. He was subsequently intubated due to respiratory distress 2/2 to LLL PNA found. We were asked to evaluate the pt due to an elevated Cr. Pt currently intubated on sedation vacation and HPI is limited. Per chart, pt's Cr baseline for this visit is about 1.0 however there are no past admissions. PMHX (per chart): Atrial fibrillation (off of Warfarin in lieu of hemorrhagic CVA) CVA as above DM PSHx (per chart): Left frontal craniotomy, excision of thalamic hermorrhagic mass (05/11/18) Aortic valve replacement (suspected porcine) SoHx: Unobtainable due to intubation Was previously in SNF REVIEW OF SYSTEMS: Unable to obtain due to clinical state PHYSICAL EXAMINATION Vital Signs 05/16/18 05/16/18 05/16/18 12:00 13:10 13:55 Temperature 99.1 F Pulse Rate 89 88 Respiratory 16 20 16 Rate Blood Pressure 131/64 120/78 O2 Sat by Pulse Oximetry (%) 05/16/18 15:00 Temperature Pulse Rate 98 H Respiratory 16 Rate Blood Pressure 118/59 L O2 Sat by Pulse Oximetry (%) GENERAL: NAD, awake, looks around room, not responding to commands, intubated off sedation HEENT: NC/AT, FRANSISCA, sclera anicteric, ETT noted NECK: No JVD LUNGS: L posterior breath sounds slightly diminished. No wheezes, and no crackles. No accessory muscle use. AC/16/450/40% HEART: RRR, normal S1 and S2 without murmur. No valvular clicks auscultated ABDOMEN: Soft, nondistended, normoactive BS, no guarding. EXTREMITIES: 2+ DP pulses, warm, well-perfused. No peripheral edema. SKIN: Warm, dry, no rashes or lesions noted. Laboratory Results - last 24 hr 05/15/18 05/15/18 05/16/18 16:42 21:25 05:30 WBC 8.1 RBC 3.51 L Hgb 10.5 L Hct 30.2 L MCV 86.1 MCH 29.8 MCHC 34.6 RDW 14.9 Plt Count 142 D MPV 10.9 D Absolute Neuts (auto) 7.3 Neutrophils % 90.9 H Lymphocytes % 5.6 L Monocytes % 3.3 L Eosinophils % 0.0 Basophils % 0.2 Nucleated RBC % 0 Platelet Estimate Slt decrease Anticoagulation Therapy Puncture Site ABG pH ABG pCO2 at Pt Temp ABG pO2 at Pt Temp ABG HCO3 ABG O2 Sat (Measured) ABG O2 Content ABG Base Excess Oziel Test O2 Delivery Device Oxygen Flow Rate Vent Mode Vent Rate Mechanical Rate PEEP Pressure Support Vent Sodium Potassium Chloride Carbon Dioxide Anion Gap BUN Creatinine Creat Clearance w eGFR POC Glucometer 281.74271 344.63537 Random Glucose Calcium Phosphorus Magnesium Total Bilirubin AST ALT Alkaline Phosphatase Total Protein Albumin 05/16/18 05/16/18 05/16/18 05:30 05:57 06:00 WBC RBC Hgb Hct MCV MCH MCHC RDW Plt Count MPV Absolute Neuts (auto) Neutrophils % Lymphocytes % Monocytes % Eosinophils % Basophils % Nucleated RBC % Platelet Estimate Anticoagulation Therapy No Result Required. Puncture Site Right brachial ABG pH 7.39 ABG pCO2 at Pt Temp 38.3 ABG pO2 at Pt Temp 155.0 H* ABG HCO3 22.8 ABG O2 Sat (Measured) 99.1 H ABG O2 Content 13.2 L ABG Base Excess -1.3 Oziel Test Positive O2 Delivery Device Vent Oxygen Flow Rate 60 Vent Mode No Result Required. Vent Rate 16 Mechanical Rate No Result Required. PEEP 5.0 Pressure Support Vent 450 Sodium 147 H Potassium 4.8 Chloride 114 H Carbon Dioxide 26 Anion Gap 7 L BUN 98 H Creatinine 2.5 H Creat Clearance w eGFR 25.89 POC Glucometer [phone] Random Glucose 363 H* Calcium 8.2 L Phosphorus 5.6 H Magnesium 3.1 H Total Bilirubin 0.6 AST 18 ALT 24 Alkaline Phosphatase 146 H Total Protein 5.5 L Albumin 2.2 L Active Medications Generic Name Dose Route Start Last Admin Trade Name Freq PRN Reason Stop Dose Admin Acetaminophen 650 mg 05/13/18 10:24 05/15/18 17:31 Tylenol - PO 650 mg Q6H PRN Administration FEVER Amlodipine Besylate 10 mg 05/13/18 10:00 05/16/18 09:49 Norvasc - PO 10 mg DAILY HIEN Administration Aspirin 81 mg 05/15/18 10:00 05/16/18 09:49 Ecotrin - PO 81 mg DAILY HIEN Administration Atorvastatin Calcium 80 mg 05/13/18 22:00 05/15/18 21:05 Lipitor - PO 80 mg HS HIEN Administration Dexamethasone 2 mg 05/16/18 18:00 Decadron - NGT Q8H-IV HIEN Docusate Sodium 100 mg 05/11/18 22:00 05/16/18 14:34 Colace - PO Not Given TID [facility] Fentanyl 50 mcg 05/11/18 17:57 05/11/18 20:55 Sublimaze Injection - IVPUSH 50 mcg [id number] PRN Administration PAIN-PACU ORDER X 4 DOSES ONLY Heparin Sodium (Porcine) 5,000 unit 05/11/18 22:00 05/16/18 14:41 Heparin - SQ 5,000 unit TID [facility] Administration Propofol 1,000,000 mcg in 100 mls @ 2.507 mls/hr 05/14/18 23:45 05/16/18 02: 24 Diprivan - IVPB 5 mcg/kg/min TITR HIEN 2.507 mls/hr Administration Protocol 5 MCG/KG/MIN Piperacillin Sod/Tazobactam 50 mls @ 100 mls/hr 05/15/18 18:00 05/16/18 09:48 Sod 3.375 gm/ Dextrose IVPB 100 mls/hr Q8H-IV HIEN Administration Protocol Lactated Ringer's 1,000 ml in 1,000 mls @ 33 mls/hr 05/16/18 11:45 Lactated Ringers Solution IV ASDIR [facility] Insulin Aspart 1 vial 05/12/18 07:00 05/16/18 12:00 Novolog Vial Sliding Scale - SQ 10 units ACHS [facility] Administration Protocol Insulin Detemir 12 units 05/16/18 12:45 05/16/18 14:34 Levemir Vial SQ 12 units BID [facility] Administration Labetalol HCl 200 mg/ 300 mg 05/13/18 14:00 05/16/18 14:41 Labetalol HCl 100 mg PO 300 mg TID [facility] Administration Levetiracetam 500 mg 05/11/18 22:00 05/16/18 09:48 Keppra Injection - IVPB 500 mg BID [facility] Administration Lisinopril 20 mg 05/13/18 10:00 05/16/18 09:49 Prinivil PO 20 mg DAILY HIEN Administration Mupirocin 1 applic 05/11/18 22:00 05/16/18 09:49 Bactroban Ointment (For Decolonization) - NS 05/16/18 21:59 1 applic BID HIEN Administration Ondansetron HCl 4 mg 05/11/18 17:57 05/11/18 19:00 Zofran Injection IVPUSH 4 mg Q6H PRN Administration NAUSEA AND/OR VOMITING Pantoprazole Sodium 40 mg 05/12/18 10:00 05/16/18 09:48 Protonix Iv IVPUSH 40 mg DAILY HIEN Administration ASSESSMENT/PLAN: Acute kidney injury Hypernatremia Acute respiratory failure s/p intubation Intraventricular and thalamic hemorrhage LLL PNA vs. atelectasis DM Atrial fibrillation --QI likely 2/2 to prerenal causes however will obtain Morgan and UCr to calculate FeNa --BUN:Cr ratio in support of prerenal thus far --Renal U/S ordered --Na 147 today downtrending from prior day; likely 2/2 to decrease free water intake --FWD 1-2L --Increase flushes with feeds to 30cc/hr for time being --Monitor Cr --Sedation vacations and rest of mgmt per ICU team --Antibiotics per ID mgmt Dispo: Continue ICU mgmt. Thank you for this consultative opportunity. Case discussed with Dr. Samson Jackson, DO - IM PGY-2 CC Time: 35 min Visit type - Emergency Visit Emergency Visit: Yes ED Registration Date: 05/10/18 Care time: The patient presented to the Emergency Department on the above date and was hospitalized for further evaluation of their emergent condition. - New Patient This patient is new to me today: Yes Date on this admission: 05/16/18 - Critical Care Critical Care patient: Yes Total Critical Care Time (in minutes): 35 Critical Care Statement: The care of this patient involved high complexity decision making to prevent further life threatening deterioration of the patient 's condition and/or to evaluate & treat vital organ system(s) failure or risk of failure.
--- NOTE | 2018-05-16 15:43 | PN ---
Teaching Attending Note Name of Resident: Can Ledbetter ATTENDING PHYSICIAN STATEMENT I saw and evaluated the patient. I reviewed the resident's note and discussed the case with the resident. I agree with the resident's findings and plan as documented. SUBJECTIVE: This entry is for date of encounter: 05/15/2018. Patient seen and examined at bedside. Clinical decompensation on Tuesday requiring reintubation. AC Mode of vent, 80% FiO2. No pressors. CXR: LLL opacification / ETT in position OBJECTIVE: Intake & Output 05/14/18 05/14/18 05/15/18 05/16/18 00:59 23:59 23:59 23:59 Intake Total 1869 766 Output Total 4650 1550 Balance -2781 -784 Weight 175 lb 4.8 oz 175 lb 4.8 oz Last Vital Signs Temp Pulse Resp BP Pulse Ox 99.1 F 98 H 16 118/59 L 99 05/16/18 14:00 05/16/18 15:00 05/16/18 15:00 05/16/18 15:00 05/16/18 11:45 Active Medications Acetaminophen (Tylenol -) 650 mg PO Q6H PRN PRN Reason: FEVER Last Admin: 05/15/18 17:31 Dose: 650 mg Amlodipine Besylate (Norvasc -) 10 mg PO DAILY [facility] Last Admin: 05/16/18 09:49 Dose: 10 mg Aspirin (Ecotrin -) 81 mg PO DAILY [facility] Last Admin: 05/16/18 09:49 Dose: 81 mg Atorvastatin Calcium (Lipitor -) 80 mg PO HS [facility] Last Admin: 05/15/18 21:05 Dose: 80 mg Dexamethasone (Decadron -) 2 mg NGT Q8H-IV HIEN Docusate Sodium (Colace -) 100 mg PO TID [facility] Last Admin: 05/16/18 14:34 Dose: Not Given Fentanyl (Sublimaze Injection -) 50 mcg IVPUSH [id number] PRN PRN Reason: PAIN-PACU ORDER X 4 DOSES ONLY Last Admin: 05/11/18 20:55 Dose: 50 mcg Heparin Sodium (Porcine) (Heparin -) 5,000 unit SQ TID [facility] Last Admin: 05/16/18 14:41 Dose: 5,000 unit Propofol (Diprivan -) 1,000,000 mcg in 100 mls @ 2.507 mls/hr IVPB TITR [facility]; Protocol Last Admin: 05/16/18 02:24 Dose: 5 mcg/kg/min, 2.507 mls/hr Piperacillin Sod/Tazobactam (Sod 3.375 gm/ Dextrose) 50 mls @ 100 mls/hr IVPB Q8H-IV [facility]EN; Protocol Last Admin: 05/16/18 09:48 Dose: 100 mls/hr Lactated Ringer's (Lactated Ringers Solution) 1,000 ml in 1,000 mls @ 33 mls/ hr IV ASDIR [facility] Insulin Aspart (Novolog Vial Sliding Scale -) 1 vial SQ ACHS [facility]; Protocol Last Admin: 05/16/18 12:00 Dose: 10 units Insulin Detemir (Levemir Vial) 12 units SQ BID [facility] Last Admin: 05/16/18 14:34 Dose: 12 units Labetalol HCl 200 mg/ (Labetalol HCl 100 mg) 300 mg PO TID [facility] Last Admin: 05/16/18 14:41 Dose: 300 mg Levetiracetam (Keppra Injection -) 500 mg IVPB BID [facility] Last Admin: 05/16/18 09:48 Dose: 500 mg Lisinopril (Prinivil) 20 mg PO DAILY [facility] Last Admin: 05/16/18 09:49 Dose: 20 mg Mupirocin (Bactroban Ointment (For Decolonization) -) 1 applic NS BID [facility] Stop: 05/16/18 21:59 Last Admin: 05/16/18 09:49 Dose: 1 applic Ondansetron HCl (Zofran Injection) 4 mg IVPUSH Q6H PRN PRN Reason: NAUSEA AND/OR VOMITING Last Admin: 05/11/18 19:00 Dose: 4 mg Pantoprazole Sodium (Protonix Iv) 40 mg IVPUSH DAILY [facility] Last Admin: 05/16/18 09:48 Dose: 40 mg GENERAL: intubated and sedated, NAD HEAD: Surgical head dressing. EYES: PERRL, sclera anicteric, conjunctiva clear. ENT: moist mucous membranes. NECK: Trachea midline. LUNGS: Vented, coarse breath sounds Left > Right, no wheezes. HEART: Regular rate and rhythm, S1, S2 without murmur, rub or gallop. ABDOMEN: Soft, nontender, nondistended, normoactive bowel sounds, no guarding, no rebound, no hepatosplenomegaly, no masses. EXTREMITIES: 2+ pulses, warm, well-perfused, no edema. NEUROLOGICAL: sedated PSYCH: sedated SKIN: Warm, dry, normal turgor, no rashes or lesions noted Laboratory Results - last 24 hr 05/15/18 05/15/18 05/16/18 16:42 21:25 05:30 WBC 8.1 RBC 3.51 L Hgb 10.5 L Hct 30.2 L MCV 86.1 MCH 29.8 MCHC 34.6 RDW 14.9 Plt Count 142 D MPV 10.9 D Absolute Neuts (auto) 7.3 Neutrophils % 90.9 H Lymphocytes % 5.6 L Monocytes % 3.3 L Eosinophils % 0.0 Basophils % 0.2 Nucleated RBC % 0 Platelet Estimate Slt decrease Anticoagulation Therapy Puncture Site ABG pH ABG pCO2 at Pt Temp ABG pO2 at Pt Temp ABG HCO3 ABG O2 Sat (Measured) ABG O2 Content ABG Base Excess Oziel Test O2 Delivery Device Oxygen Flow Rate Vent Mode Vent Rate Mechanical Rate PEEP Pressure Support Vent Sodium Potassium Chloride Carbon Dioxide Anion Gap BUN Creatinine Creat Clearance w eGFR POC Glucometer 281.36291 344.23875 Random Glucose Calcium Phosphorus Magnesium Total Bilirubin AST ALT Alkaline Phosphatase Total Protein Albumin 05/16/18 05/16/18 05/16/18 05:30 05:57 06:00 WBC RBC Hgb Hct MCV MCH MCHC RDW Plt Count MPV Absolute Neuts (auto) Neutrophils % Lymphocytes % Monocytes % Eosinophils % Basophils % Nucleated RBC % Platelet Estimate Anticoagulation Therapy No Result Required. Puncture Site Right brachial ABG pH 7.39 ABG pCO2 at Pt Temp 38.3 ABG pO2 at Pt Temp 155.0 H* ABG HCO3 22.8 ABG O2 Sat (Measured) 99.1 H ABG O2 Content 13.2 L ABG Base Excess -1.3 Oziel Test Positive O2 Delivery Device Vent Oxygen Flow Rate 60 Vent Mode No Result Required. Vent Rate 16 Mechanical Rate No Result Required. PEEP 5.0 Pressure Support Vent 450 Sodium 147 H Potassium 4.8 Chloride 114 H Carbon Dioxide 26 Anion Gap 7 L BUN 98 H Creatinine 2.5 H Creat Clearance w eGFR 25.89 POC Glucometer [phone] Random Glucose 363 H* Calcium 8.2 L Phosphorus 5.6 H Magnesium 3.1 H Total Bilirubin 0.6 AST 18 ALT 24 Alkaline Phosphatase 146 H Total Protein 5.5 L Albumin 2.2 L ASSESSMENT/PLAN: Acute Respiratory Failure (3rd intubation) POD # 4 Left frontal craniotomy, excision of thalamic hermorrhagic mass AFIB Recent hemorrhagic CVA DM Sedation vacation to assess mental status Enteral feeds BP control Wean FiO2 IVF ABX coverage D/C Mucomyst [facility] Head of bed: 30 degrees. PPI Decadron ICU monitoring Dr Gatica Critical Care patient: Yes Total Critical Care Time (in minutes): 36 Critical Care Statement: The care of this patient involved high complexity decision making to prevent further life threatening deterioration of the patient 's condition and/or to evaluate & treat vital organ system(s) failure or risk of failure.
--- NOTE | 2018-05-16 17:15 | PN ---
Teaching Attending Note Name of Resident: Jax Jackson (Nephrology) ATTENDING PHYSICIAN STATEMENT I saw and evaluated the patient. I reviewed the resident's note and discussed the case with the resident. I agree with the resident's findings and plan as documented. Renal PT is a 67 year old male with pmhx of htn, a-fib and dm who is s/p left frontal craniotomy. I was called to evaluate him for QI. pmhx dm a-fib cva family hx non contrub ros unable to asses Current Medications Generic Name Dose Route Start Last Admin Trade Name Freq PRN Reason Stop Dose Admin Acetaminophen 650 mg 05/13/18 10:24 05/15/18 17:31 Tylenol - PO 650 mg Q6H PRN Administration FEVER Amlodipine Besylate 10 mg 05/13/18 10:00 05/16/18 09:49 Norvasc - PO 10 mg DAILY [facility] Administration Aspirin 81 mg 05/15/18 10:00 05/16/18 09:49 Ecotrin - PO 81 mg DAILY [facility] Administration Atorvastatin Calcium 80 mg 05/13/18 22:00 05/15/18 21:05 Lipitor - PO 80 mg HS [facility] Administration Dexamethasone 2 mg 05/16/18 18:00 Decadron - NGT Q8H-IV [facility] Docusate Sodium 100 mg 05/11/18 22:00 05/16/18 14:34 Colace - PO Not Given TID [facility] Fentanyl 50 mcg 05/11/18 17:57 05/11/18 20:55 Sublimaze Injection - IVPUSH 50 mcg [id number] PRN Administration PAIN-PACU ORDER X 4 DOSES ONLY Heparin Sodium (Porcine) 5,000 unit 05/11/18 22:00 05/16/18 14:41 Heparin - SQ 5,000 unit TID [facility] Administration Propofol 1,000,000 mcg in 100 mls @ 2.507 mls/hr 05/14/18 23:45 05/16/18 02: 24 Diprivan - IVPB 5 mcg/kg/min TITR [facility] 2.507 mls/hr Administration Protocol 5 MCG/KG/MIN Piperacillin Sod/Tazobactam 50 mls @ 100 mls/hr 05/15/18 18:00 05/16/18 09:48 Sod 3.375 gm/ Dextrose IVPB 100 mls/hr Q8H-IV [facility] Administration Protocol Lactated Ringer's 1,000 ml in 1,000 mls @ 33 mls/hr 05/16/18 11:45 Lactated Ringers Solution IV ASDIR [facility] Insulin Aspart 1 vial 05/12/18 07:00 05/16/18 12:00 Novolog Vial Sliding Scale - SQ 10 units ACHS [facility] Administration Protocol Insulin Detemir 12 units 05/16/18 12:45 05/16/18 14:34 Levemir Vial SQ 12 units BID [facility] Administration Labetalol HCl 200 mg/ 300 mg 05/13/18 14:00 05/16/18 14:41 Labetalol HCl 100 mg PO 300 mg TID [facility] Administration Levetiracetam 500 mg 05/11/18 22:00 05/16/18 09:48 Keppra Injection - IVPB 500 mg BID [facility] Administration Lisinopril 20 mg 05/13/18 10:00 05/16/18 09:49 Prinivil PO 20 mg DAILY [facility] Administration Mupirocin 1 applic 05/11/18 22:00 05/16/18 09:49 Bactroban Ointment (For Decolonization) - NS 05/16/18 21:59 1 applic BID [facility] Administration Ondansetron HCl 4 mg 05/11/18 17:57 05/11/18 19:00 Zofran Injection IVPUSH 4 mg Q6H PRN Administration NAUSEA AND/OR VOMITING Pantoprazole Sodium 40 mg 05/12/18 10:00 05/16/18 09:48 Protonix Iv IVPUSH 40 mg DAILY [facility] Administration Laboratory Tests 05/13/18 05/14/18 05/14/18 05:30 05:30 05:30 WBC Hgb 11.0 L Sodium 145 Potassium Creatinine 1.3 05/15/18 05/16/18 05/16/18 05:30 05:30 05:30 WBC 8.1 Hgb 10.5 L Sodium 152 H 147 H Potassium 4.8 Creatinine 1.4 H 2.5 H heent dressing in place cardio s1s2 pulm vent support GI soft ext neg edema gu ledezma Impression 1. QI 2. hypernatremia 3. hemorrhagic CVA 4. DM 5. a-fib 6. Acute Respiratory Failure 7. s/p Left frontal craniotomy, excision of thalamic hermorrhagic mass Plan - change fluids to 1/2 ns - monitor sodium - will need better glucose control - increase free water with feeds - discussed with ICU team - check urine lytes and cr - check renal ultrasound Dr Davies
--- NOTE | 2018-05-16 17:28 | PN ---
Progress Note, Physician Chief Complaint: Intracranial hemorrhage History of Present Illness: On mechanical vent s/p craniotomy - Current Medication List Current Medications: Active Medications Acetaminophen (Tylenol -) 650 mg PO Q6H PRN PRN Reason: FEVER Last Admin: 05/15/18 17:31 Dose: 650 mg Amlodipine Besylate (Norvasc -) 10 mg PO DAILY [facility] Last Admin: 05/16/18 09:49 Dose: 10 mg Aspirin (Ecotrin -) 81 mg PO DAILY [facility] Last Admin: 05/16/18 09:49 Dose: 81 mg Atorvastatin Calcium (Lipitor -) 80 mg PO HS [facility] Last Admin: 05/15/18 21:05 Dose: 80 mg Dexamethasone (Decadron -) 2 mg NGT Q8H-IV [facility] Docusate Sodium (Colace -) 100 mg PO TID [facility] Last Admin: 05/16/18 14:34 Dose: Not Given Fentanyl (Sublimaze Injection -) 50 mcg IVPUSH [id number] PRN PRN Reason: PAIN-PACU ORDER X 4 DOSES ONLY Last Admin: 05/11/18 20:55 Dose: 50 mcg Heparin Sodium (Porcine) (Heparin -) 5,000 unit SQ TID [facility] Last Admin: 05/16/18 14:41 Dose: 5,000 unit Propofol (Diprivan -) 1,000,000 mcg in 100 mls @ 2.507 mls/hr IVPB TITR [facility]; Protocol Last Admin: 05/16/18 02:24 Dose: 5 mcg/kg/min, 2.507 mls/hr Piperacillin Sod/Tazobactam (Sod 3.375 gm/ Dextrose) 50 mls @ 100 mls/hr IVPB Q8H-IV [facility]; Protocol Last Admin: 05/16/18 09:48 Dose: 100 mls/hr Sodium Chloride (1/2 Normal Saline) 1,000 mls @ 75 mls/hr IV ASDIR [facility] Insulin Aspart (Novolog Vial Sliding Scale -) 1 vial SQ ACHS [facility]; Protocol Insulin Detemir (Levemir Vial) 12 units SQ BID [facility] Last Admin: 05/16/18 14:34 Dose: 12 units Labetalol HCl 200 mg/ (Labetalol HCl 100 mg) 300 mg PO TID [facility] Last Admin: 05/16/18 14:41 Dose: 300 mg Levetiracetam (Keppra Injection -) 500 mg IVPB BID [facility] Last Admin: 05/16/18 09:48 Dose: 500 mg Lisinopril (Prinivil) 20 mg PO DAILY [facility] Last Admin: 05/16/18 09:49 Dose: 20 mg Mupirocin (Bactroban Ointment (For Decolonization) -) 1 applic NS BID [facility] Stop: 05/16/18 21:59 Last Admin: 05/16/18 09:49 Dose: 1 applic Ondansetron HCl (Zofran Injection) 4 mg IVPUSH Q6H PRN PRN Reason: NAUSEA AND/OR VOMITING Last Admin: 05/11/18 19:00 Dose: 4 mg Pantoprazole Sodium (Protonix Iv) 40 mg IVPUSH DAILY [facility] Last Admin: 05/16/18 09:48 Dose: 40 mg - Objective Vital Signs: Vital Signs Temperature 99.1 F 05/16/18 14:00 Pulse Rate 104 H 05/16/18 17:14 Respiratory Rate 16 05/16/18 17:14 Blood Pressure 107/58 L 05/16/18 17:14 O2 Sat by Pulse Oximetry (%) 99 05/16/18 11:45 Constitutional: Yes: Well Nourished, No Distress, Calm Cardiovascular: Yes: Regular Rate and Rhythm Respiratory: Yes: Mechanically Ventilated Gastrointestinal: Yes: Normal Bowel Sounds, Soft Edema: No Peripheral Pulses WNL: Yes Neurological: Yes: Other (opens his eyes to physical stimuli) Labs: CBC, BMP 05/16/18 05:30 05/16/18 05:30 INR, PTT INR 1.06 (0.83-1.09) 05/10/18 16:15 Problem List - Problems (1) QI (acute kidney injury) Code(s): N17.9 - ACUTE KIDNEY FAILURE, UNSPECIFIED (2) Diabetes Code(s): E11.9 - TYPE 2 DIABETES MELLITUS WITHOUT COMPLICATIONS (3) HTN (hypertension) Code(s): I10 - ESSENTIAL (PRIMARY) HYPERTENSION (4) Hypernatremia Code(s): E87.0 - HYPEROSMOLALITY AND HYPERNATREMIA (5) Intracranial bleed Code(s): I62.9 - NONTRAUMATIC INTRACRANIAL HEMORRHAGE, UNSPECIFIED (6) Respiratory failure Code(s): J96.90 - RESPIRATORY FAILURE, UNSP, UNSP W HYPOXIA OR HYPERCAPNIA (7) S/P craniotomy Code(s): Z98.890 - OTHER SPECIFIED POSTPROCEDURAL STATES
[2018-05-16] MEDS ORDERED: SODIUM CHLORIDE 0.45% 1,000 ML IV SCH (17:30)
[2018-05-16] MEDS: DEXAMETHASONE 4 MG TABLET (FP) NGT SCH (17:37)
--- NOTE | 2018-05-16 18:20 | PN ---
Progress Note (short form) - Note Progress Note: 67 year old male history of DM, Neuropathy, had recent brain bleed, he also have history of atrial fibrillation. Patient fell out of wheel chair. He has ct scan done showed left basal ganglia bleed and old right parietal lobe infarct. He underwent craniotomy by Dr Aden and clot removal. No seizure, and he was intubated and sedated. He opens eye spontaneously but no communication Neurological Examination( Limited Neuro exam) He was awake opens eye spontaneously he do not follow command, right sided hemiparesis His vital is normal, no neck stiffness pupils is reactive, small, mild right facial palsy Assessment: left basal ganglia bleed with intra ventricular extension. S/P Craniotomy on May 11 and clot removal. Plan: 1. continue keppra for now, though would not require for nursing home. 3. continue icu are adn supportive care, given that he has bleed and acute neurosurgery intervention Will continue to follow with primary Thanking you so much Avelino Phoenix MD
[2018-05-16] MEDS: ATORVASTATIN CA 80 MG TABLET (FP) PO SCH (21:27)
[2018-05-17] MEDS: PIPERACILLIN/TAZOB 3.375 GM 3.375 GM in DEXTROSE 5%-WATER - 50 ML IVPB SCH ×3 (02:05→17:33)
[2018-05-17] MEDS: DEXAMETHASONE 4 MG TABLET (FP) NGT SCH ×3 (02:07→17:33)
[2018-05-17] MEDS ORDERED: LABETALOL HCL 100 MG TABLET (FP) ONE ×3 (06:04→21:41)
[2018-05-17] MEDS ORDERED: LABETALOL HCL 200 MG TABLET (FP) ONE ×3 (06:04→21:40)
[2018-05-17] MEDS: INSULIN SLIDING SCALE (NOVOLOG) 1 VIAL SQ SCH ×4 (06:17→22:02)
[2018-05-17] MEDS: HEPARIN NA (PORCINE) 5,000 UNITS/ML 1ML VIAL SQ SCH ×3 (06:17→21:52)
[2018-05-17] MEDS: DOCUSATE SODIUM 100 MG CAPSULE (FP) PO SCH ×3 (06:17→21:53)
[2018-05-17] MEDS: LABETALOL HCL 200 MG, LABETALOL HCL 100 MG PO SCH ×3 (06:17→21:52)
[2018-05-17 06:26] LABS: BASO % 0.2 % (0-2.0); HEMOGLOBIN 10.1 GM/dL (11.7-16.9); LYMPH % 8.5 % (8-40); MCH 27.8 pg (25.7-33.7); MCHC 32.6 g/dl (32.0-35.9); MEAN CELL VOLUME 85.2 fl (80-96); MEAN PLT VOLUME 10.4 fl (7.5-11.1); MONO % 4.9 % (3.8-10.2); NEUT % 86.4 % (42.8-82.8); PLATELET COUNT 119 K/MM3 (134-434); RBC 3.65 M/mm3 (4.00-5.60); RDW 14.2 % (11.9-15.9); WHITE BLOOD COUNT 8.2 K/mm3 (4.0-10.0)
[2018-05-17 07:25] LABS: ARTERIAL BLD GAS O2 SATURATION 98.5 % (90-98.9); ARTERIAL BLOOD GAS BASE EXCESS 1.8 meq/l (-2-2); ARTERIAL BLOOD GAS pH 7.45 (7.35-7.45)
[2018-05-17 07:30] LABS: ALBUMIN 2.2 g/dl (3.4-5.0); ALK PHOS 137 U/L (45-117); ANION GAP 8 MMOL/L (8-16); BILIRUBIN,TOTAL 0.4 mg/dL (0.2-1); BLOOD UREA NITROGEN 102 mg/dL (7-18); CALCIUM 8.4 mg/dL (8.5-10.1); CHLORIDE 115 mmol/L (98-107); CO2 26 mmol/L (21-32); CREATININE 1.9 mg/dL (0.55-1.3); MAGNESIUM 3.3 mg/dL (1.8-2.4); PHOSPHOROUS 3.1 mg/dL (2.5-4.9); POTASSIUM 4.7 mmol/L (3.5-5.1); SGOT/AST 22 U/L (15-37); SGPT/ALT 30 U/L (13-61); SODIUM 149 mmol/L (136-145); TOT PROT 5.5 g/dl (6.4-8.2)
--- NOTE | 2018-05-17 07:51 | PN ---
Progress Note (short form) - Note Progress Note: 67 year old male history of DM, Neuropathy, had recent brain bleed, he also have history of atrial fibrillation. Patient fell out of wheel chair. He has ct scan done showed left basal ganglia bleed and old right parietal lobe infarct. He underwent craniotomy by Dr Aden and clot removal. No seizure, and remains intubated. He opens eye spontaneously but no communication. His sedation was stopped earlier this am and primary team planning to extubate him today Neurological Examination( Limited Neuro exam) He was awake opens eye spontaneously he do not follow command, right sided hemiparesis His vital is normal, no neck stiffness pupils is reactive, small, mild right facial palsy Assessment: left basal ganglia bleed with intra ventricular extension. S/P Craniotomy on May 11 and clot removal. Plan: 1. 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 2. continue icu are adn supportive care 3. Steroid are not indicated for cytotoxic edema( brain bleed or ischemic stroke ) Will continue to follow with primary Thanking you so much Avelino Phoenix MD
[2018-05-17 08:03] LABS: GLUCOSE,RANDOM 333 mg/dL (74-106)
[2018-05-17] MEDS ORDERED: PIPERACILLIN/TAZOBACTAM 3.375 GM VIAL IVPB ONE ×2 (09:00→17:29)
[2018-05-17] MEDS ORDERED: DEXTROSE 5%-WATER - 50 ML IVPB ONE ×2 (09:00→17:29)
[2018-05-17] MEDS: PANTOPRAZOLE SODIUM 40 MG VIAL IVPUSH SCH (09:13)
[2018-05-17] MEDS: levETIRAcetam 500 MG/5 ML INJECTION VIAL IVPB SCH ×2 (09:13→21:51)
[2018-05-17] MEDS: amLODIPine BESYLATE 10 MG TABLET (FP) PO SCH (09:14)
[2018-05-17] MEDS: LISINOPRIL 20 MG TABLET (FP) PO SCH (09:14)
[2018-05-17] MEDS: ASPIRIN COATED 81 MG TABLET.EC PO SCH (09:14)
[2018-05-17] MEDS: INSULIN (LEVEMIR) 100 UNITS/ML UNITS SQ SCH ×2 (10:17→21:54)
--- NOTE | 2018-05-17 10:22 | PN ---
Progress Note, Physician Chief Complaint: AWAKE, INTUBATED STILL SEDATED WHEN NEEDED EVENTS AND NOTES REVIEWED - Current Medication List Current Medications: Active Medications Acetaminophen (Tylenol -) 650 mg PO Q6H PRN PRN Reason: FEVER Last Admin: 05/15/18 17:31 Dose: 650 mg Amlodipine Besylate (Norvasc -) 10 mg PO DAILY [facility] Last Admin: 05/17/18 09:14 Dose: 10 mg Aspirin (Ecotrin -) 81 mg PO DAILY [facility] Last Admin: 05/17/18 09:14 Dose: 81 mg Atorvastatin Calcium (Lipitor -) 80 mg PO HS [facility] Last Admin: 05/16/18 21:27 Dose: 80 mg Dexamethasone (Decadron -) 2 mg NGT Q8H-IV [facility] Last Admin: 05/17/18 09:22 Dose: 2 mg Docusate Sodium (Colace -) 100 mg PO TID [facility] Last Admin: 05/17/18 06:17 Dose: 100 mg Fentanyl (Sublimaze Injection -) 50 mcg IVPUSH [id number] PRN PRN Reason: PAIN-PACU ORDER X 4 DOSES ONLY Last Admin: 05/11/18 20:55 Dose: 50 mcg Heparin Sodium (Porcine) (Heparin -) 5,000 unit SQ TID [facility] Last Admin: 05/17/18 06:17 Dose: 5,000 unit Propofol (Diprivan -) 1,000,000 mcg in 100 mls @ 2.507 mls/hr IVPB TITR [facility]; Protocol Last Admin: 05/17/18 00:00 Dose: 5 mcg/kg/min, 2.507 mls/hr Piperacillin Sod/Tazobactam (Sod 3.375 gm/ Dextrose) 50 mls @ 100 mls/hr IVPB Q8H-IV [facility]; Protocol Last Admin: 05/17/18 09:13 Dose: 100 mls/hr Sodium Chloride (1/2 Normal Saline) 1,000 mls @ 75 mls/hr IV ASDIR [facility] Last Admin: 05/16/18 17:37 Dose: 75 mls/hr Insulin Aspart (Novolog Vial Sliding Scale -) 1 vial SQ ACHS [facility]; Protocol Last Admin: 05/17/18 06:17 Dose: 12 units Insulin Detemir (Levemir Vial) 12 units SQ BID [facility] Last Admin: 05/17/18 10:17 Dose: 12 units Labetalol HCl 200 mg/ (Labetalol HCl 100 mg) 300 mg PO TID [facility] Last Admin: 05/17/18 06:17 Dose: 300 mg Levetiracetam (Keppra Injection -) 500 mg IVPB BID [facility] Last Admin: 05/17/18 09:13 Dose: 500 mg Lisinopril (Prinivil) 20 mg PO DAILY [facility] Last Admin: 05/17/18 09:14 Dose: 20 mg Ondansetron HCl (Zofran Injection) 4 mg IVPUSH Q6H PRN PRN Reason: NAUSEA AND/OR VOMITING Last Admin: 05/11/18 19:00 Dose: 4 mg Pantoprazole Sodium (Protonix Iv) 40 mg IVPUSH DAILY [facility] Last Admin: 05/17/18 09:13 Dose: 40 mg - Objective Vital Signs: Vital Signs Temperature 98.9 F 05/17/18 06:00 Pulse Rate 85 05/17/18 08:00 Respiratory Rate 22 H 05/17/18 10:13 Blood Pressure 142/70 05/17/18 08:00 O2 Sat by Pulse Oximetry (%) 99 05/16/18 20:41 Eyes: Yes: Conjunctiva Clear HENT: Yes: WNL Cardiovascular: Yes: WNL Respiratory: Yes: Mechanically Ventilated Genitourinary: Yes: Smith Present Musculoskeletal: Yes: Muscle Weakness Edema: Yes Edema: LLE: Trace, RLE: Trace Integumentary: Yes: Other Wound/Incision: Yes: Dressing Dry and Intact Neurological: Yes: Pre-Existing Deficit ...Motor Strength: LLE, RLE Psychiatric: Yes: Other Labs: CBC, BMP 05/17/18 05:30 05/17/18 05:30 INR, PTT INR 1.06 (0.83-1.09) 05/10/18 16:15 Problem List - Problems (1) Diabetes Code(s): E11.9 - TYPE 2 DIABETES MELLITUS WITHOUT COMPLICATIONS (2) Fall Code(s): W19.XXXA - UNSPECIFIED FALL, INITIAL ENCOUNTER Qualifiers: Encounter type: initial encounter Qualified Code(s): W19.XXXA - Unspecified fall, initial encounter (3) HTN (hypertension) Code(s): I10 - ESSENTIAL (PRIMARY) HYPERTENSION (4) Intracranial bleed Code(s): I62.9 - NONTRAUMATIC INTRACRANIAL HEMORRHAGE, UNSPECIFIED (5) Respiratory failure Code(s): J96.90 - RESPIRATORY FAILURE, UNSP, UNSP W HYPOXIA OR HYPERCAPNIA (6) S/P craniotomy Code(s): Z98.890 - OTHER SPECIFIED POSTPROCEDURAL STATES Assessment/Plan S/P CRANIOTOMY THALAMIC MASS, ICH POD#6 SEDATED AND INTUBATED ON VENT SUPPORT ONCE STABLE PRESSURES CAN TRY WEANING OFF OF VENT DVT PROPHYLAXIS IV ZOSYN MONITOR LABS NEUROLOGY/PULM F/U NEUROSURGERY CONSULT APPRECIATED
--- NOTE | 2018-05-17 11:54 | PN ---
Progress Note, Physician History of Present Illness: Remains intubated Afebrile WBC 8.2 Sputum c/s mixed, including MRSA Cr improved 1.9 Vanco T 13.4 Urine pneumococcal ag + - Current Medication List Current Medications: Active Medications Acetaminophen (Tylenol -) 650 mg PO Q6H PRN PRN Reason: FEVER Last Admin: 05/15/18 17:31 Dose: 650 mg Amlodipine Besylate (Norvasc -) 10 mg PO DAILY [facility] Last Admin: 05/17/18 09:14 Dose: 10 mg Aspirin (Ecotrin -) 81 mg PO DAILY [facility] Last Admin: 05/17/18 09:14 Dose: 81 mg Atorvastatin Calcium (Lipitor -) 80 mg PO HS [facility] Last Admin: 05/16/18 21:27 Dose: 80 mg Dexamethasone (Decadron -) 2 mg NGT Q8H-IV [facility] Last Admin: 05/17/18 09:22 Dose: 2 mg Docusate Sodium (Colace -) 100 mg PO TID [facility] Last Admin: 05/17/18 06:17 Dose: 100 mg Fentanyl (Sublimaze Injection -) 50 mcg IVPUSH [id number] PRN PRN Reason: PAIN-PACU ORDER X 4 DOSES ONLY Last Admin: 05/11/18 20:55 Dose: 50 mcg Heparin Sodium (Porcine) (Heparin -) 5,000 unit SQ TID [facility] Last Admin: 05/17/18 06:17 Dose: 5,000 unit Propofol (Diprivan -) 1,000,000 mcg in 100 mls @ 2.507 mls/hr IVPB TITR [facility]; Protocol Last Admin: 05/17/18 00:00 Dose: 5 mcg/kg/min, 2.507 mls/hr Piperacillin Sod/Tazobactam (Sod 3.375 gm/ Dextrose) 50 mls @ 100 mls/hr IVPB Q8H-IV [facility]; Protocol Last Admin: 05/17/18 09:13 Dose: 100 mls/hr Sodium Chloride (1/2 Normal Saline) 1,000 mls @ 75 mls/hr IV ASDIR [facility] Last Admin: 05/16/18 17:37 Dose: 75 mls/hr Insulin Aspart (Novolog Vial Sliding Scale -) 1 vial SQ ACHS [facility]; Protocol Last Admin: 05/17/18 06:17 Dose: 12 units Insulin Detemir (Levemir Vial) 12 units SQ BID [facility] Last Admin: 05/17/18 10:17 Dose: 12 units Labetalol HCl 200 mg/ (Labetalol HCl 100 mg) 300 mg PO TID [facility] Last Admin: 05/17/18 06:17 Dose: 300 mg Levetiracetam (Keppra Injection -) 500 mg IVPB BID [facility] Last Admin: 05/17/18 09:13 Dose: 500 mg Lisinopril (Prinivil) 20 mg PO DAILY [facility] Last Admin: 05/17/18 09:14 Dose: 20 mg Ondansetron HCl (Zofran Injection) 4 mg IVPUSH Q6H PRN PRN Reason: NAUSEA AND/OR VOMITING Last Admin: 05/11/18 19:00 Dose: 4 mg Pantoprazole Sodium (Protonix Iv) 40 mg IVPUSH DAILY [facility] Last Admin: 05/17/18 09:13 Dose: 40 mg - Objective Vital Signs: Vital Signs Temperature 98.9 F 05/17/18 06:00 Pulse Rate 88 05/17/18 10:00 Respiratory Rate 25 H 05/17/18 11:21 Blood Pressure 153/66 05/17/18 10:00 O2 Sat by Pulse Oximetry (%) 97 05/17/18 10:20 Constitutional: Yes: No Distress HENT: Yes: Other (surgical dressing in place) Cardiovascular: Yes: Regular Rate and Rhythm, S1, S2 Respiratory: Yes: Mechanically Ventilated Gastrointestinal: Yes: Normal Bowel Sounds, Soft. No: Tenderness Edema: No Labs: CBC, BMP 05/17/18 05:30 05/17/18 05:30 INR, PTT INR 1.06 (0.83-1.09) 05/10/18 16:15 Assessment/Plan LLL pneumonia + sputum c/s MRSA/ mixed + pneumococcal ag Respiratory failure S/P craniotomy POD # 6 S/A AVR Azotemia Await c/s Continue zosyn Redose vancomycin Check random level am Contact precautions MRSA
[2018-05-17] MEDS ORDERED: VANCOMYCIN 1 GRAM (PRE-DOCKED) 1,000 MG/250 ML BAG IVPB ONE (12:15)
--- NOTE | 2018-05-17 12:25 | PN ---
Progress Note, Physician History of Present Illness: Pt seen and examined at bedside. He remains in the ICU. - Current Medication List Current Medications: Active Medications Acetaminophen (Tylenol -) 650 mg PO Q6H PRN PRN Reason: FEVER Last Admin: 05/15/18 17:31 Dose: 650 mg Amlodipine Besylate (Norvasc -) 10 mg PO DAILY [facility] Last Admin: 05/17/18 09:14 Dose: 10 mg Aspirin (Ecotrin -) 81 mg PO DAILY [facility] Last Admin: 05/17/18 09:14 Dose: 81 mg Atorvastatin Calcium (Lipitor -) 80 mg PO HS [facility] Last Admin: 05/16/18 21:27 Dose: 80 mg Dexamethasone (Decadron -) 2 mg NGT Q8H-IV [facility] Last Admin: 05/17/18 09:22 Dose: 2 mg Docusate Sodium (Colace -) 100 mg PO TID [facility] Last Admin: 05/17/18 06:17 Dose: 100 mg Fentanyl (Sublimaze Injection -) 50 mcg IVPUSH [id number] PRN PRN Reason: PAIN-PACU ORDER X 4 DOSES ONLY Last Admin: 05/11/18 20:55 Dose: 50 mcg Heparin Sodium (Porcine) (Heparin -) 5,000 unit SQ TID [facility] Last Admin: 05/17/18 06:17 Dose: 5,000 unit Propofol (Diprivan -) 1,000,000 mcg in 100 mls @ 2.507 mls/hr IVPB TITR [facility]; Protocol Last Admin: 05/17/18 00:00 Dose: 5 mcg/kg/min, 2.507 mls/hr Piperacillin Sod/Tazobactam (Sod 3.375 gm/ Dextrose) 50 mls @ 100 mls/hr IVPB Q8H-IV [facility]; Protocol Last Admin: 05/17/18 09:13 Dose: 100 mls/hr Sodium Chloride (1/2 Normal Saline) 1,000 mls @ 75 mls/hr IV ASDIR [facility] Last Admin: 05/16/18 17:37 Dose: 75 mls/hr Vancomycin HCl (Vancomycin (Pre-Docked)) 1,000 mg in 250 mls @ 166.667 mls/hr IVPB ONCE ONE; Protocol Stop: 05/17/18 13:44 Insulin Aspart (Novolog Vial Sliding Scale -) 1 vial SQ ACHS [facility]; Protocol Last Admin: 05/17/18 06:17 Dose: 12 units Insulin Detemir (Levemir Vial) 12 units SQ BID [facility] Last Admin: 05/17/18 10:17 Dose: 12 units Labetalol HCl 200 mg/ (Labetalol HCl 100 mg) 300 mg PO TID [facility] Last Admin: 05/17/18 06:17 Dose: 300 mg Levetiracetam (Keppra Injection -) 500 mg IVPB BID [facility] Last Admin: 05/17/18 09:13 Dose: 500 mg Lisinopril (Prinivil) 20 mg PO DAILY [facility] Last Admin: 05/17/18 09:14 Dose: 20 mg Ondansetron HCl (Zofran Injection) 4 mg IVPUSH Q6H PRN PRN Reason: NAUSEA AND/OR VOMITING Last Admin: 05/11/18 19:00 Dose: 4 mg Pantoprazole Sodium (Protonix Iv) 40 mg IVPUSH DAILY [facility] Last Admin: 05/17/18 09:13 Dose: 40 mg - Objective Vital Signs: Vital Signs Temperature 98.9 F 05/17/18 06:00 Pulse Rate 85 05/17/18 12:00 Respiratory Rate 16 05/17/18 12:00 Blood Pressure 134/84 05/17/18 12:00 O2 Sat by Pulse Oximetry (%) 97 05/17/18 10:20 Constitutional: Yes: Calm Eyes: Yes: Conjunctiva Clear HENT: Yes: Other (s/p craniotomy) Cardiovascular: Yes: S1, S2 Respiratory: Yes: Mechanically Ventilated Gastrointestinal: Yes: Soft Genitourinary: Yes: Smith Present Musculoskeletal: Yes: Muscle Weakness Edema: No Neurological: Yes: Lethargy Labs: CBC, BMP 05/17/18 05:30 05/17/18 05:30 INR, PTT INR 1.06 (0.83-1.09) 05/10/18 16:15 - ....Imaging Chest X-ray: Report Reviewed Problem List - Problems (1) Hypernatremia Code(s): E87.0 - HYPEROSMOLALITY AND HYPERNATREMIA (2) STEVEN (acute kidney injury) Code(s): N17.9 - ACUTE KIDNEY FAILURE, UNSPECIFIED (3) Diabetes Code(s): E11.9 - TYPE 2 DIABETES MELLITUS WITHOUT COMPLICATIONS Assessment/Plan Current Medications Generic Name Dose Route Start Last Admin Trade Name Harmony PRN Reason Stop Dose Admin Acetaminophen 650 mg 05/13/18 10:24 05/15/18 17:31 Tylenol - PO 650 mg Q6H PRN Administration FEVER Amlodipine Besylate 10 mg 05/13/18 10:00 05/17/18 09:14 Norvasc - PO 10 mg DAILY [facility] Administration Aspirin 81 mg 05/15/18 10:00 05/17/18 09:14 Ecotrin - PO 81 mg DAILY [facility] Administration Atorvastatin Calcium 80 mg 05/13/18 22:00 05/16/18 21:27 Lipitor - PO 80 mg HS [facility] Administration Dexamethasone 2 mg 05/16/18 18:00 05/17/18 09:22 Decadron - NGT 2 mg Q8H-IV [facility] Administration Docusate Sodium 100 mg 05/11/18 22:00 05/17/18 06:17 Colace - PO 100 mg TID [facility] Administration Fentanyl 50 mcg 05/11/18 17:57 05/11/18 20:55 Sublimaze Injection - IVPUSH 50 mcg [id number] PRN Administration PAIN-PACU ORDER X 4 DOSES ONLY Heparin Sodium (Porcine) 5,000 unit 05/11/18 22:00 05/17/18 06:17 Heparin - SQ 5,000 unit TID [facility] Administration Propofol 1,000,000 mcg in 100 mls @ 2.507 mls/hr 05/14/18 23:45 05/17/18 00: 00 Diprivan - IVPB 5 mcg/kg/min TITR [facility] 2.507 mls/hr Administration Protocol 5 MCG/KG/MIN Piperacillin Sod/Tazobactam 50 mls @ 100 mls/hr 05/15/18 18:00 05/17/18 09:13 Sod 3.375 gm/ Dextrose IVPB 100 mls/hr Q8H-IV [facility] Administration Protocol Sodium Chloride 1,000 mls @ 75 mls/hr 05/16/18 17:30 05/16/18 17:37 1/2 Normal Saline IV 75 mls/hr ASDIR [facility] Administration Vancomycin HCl 1,000 mg in 250 mls @ 166.667 mls/hr 05/17/18 12:15 Vancomycin (Pre-Docked) IVPB 05/17/18 13:44 ONCE ONE Protocol Insulin Aspart 1 vial 05/16/18 17:19 05/17/18 06:17 Novolog Vial Sliding Scale - SQ 12 units ACHS [facility] Administration Protocol Insulin Detemir 12 units 05/16/18 12:45 05/17/18 10:17 Levemir Vial SQ 12 units BID [facility] Administration Labetalol HCl 200 mg/ 300 mg 05/13/18 14:00 05/17/18 06:17 Labetalol HCl 100 mg PO 300 mg TID [facility] Administration Levetiracetam 500 mg 05/11/18 22:00 05/17/18 09:13 Keppra Injection - IVPB 500 mg BID [facility] Administration Lisinopril 20 mg 05/13/18 10:00 05/17/18 09:14 Prinivil PO 20 mg DAILY [facility] Administration Ondansetron HCl 4 mg 05/11/18 17:57 05/11/18 19:00 Zofran Injection IVPUSH 4 mg Q6H PRN Administration NAUSEA AND/OR VOMITING Pantoprazole Sodium 40 mg 05/12/18 10:00 05/17/18 09:13 Protonix Iv IVPUSH 40 mg DAILY [facility] Administration Laboratory Tests 05/16/18 05/17/18 16:35 05:30 Sodium 149 H BUN 102 H Creatinine 1.9 H Random Glucose 333 H* Ur Random Sodium 22 L Impression 1. STEVEN 2. hypernatremia 3. hemorrhagic CVA 4. DM 5. a-fib 6. Acute Respiratory Failure 7. s/p Left frontal craniotomy, excision of thalamic hermorrhagic mass Plan - cont hypotonic fluids - increase free water with feeds - will need better glucose control as hyperglycemia will lead to further dehydration - steven likely pre-renal - discussed with ICU team - check urine lytes and cr - renal ultrasound reviewed Dr Davies
[2018-05-17] MEDS ORDERED: SODIUM CHLORIDE 0.45% 1,000 ML IV SCH (12:27)
--- NOTE | 2018-05-17 14:14 | PN ---
Teaching Attending Note Name of Resident: Can Ledbetter ATTENDING PHYSICIAN STATEMENT I saw and evaluated the patient. I reviewed the resident's note and discussed the case with the resident. I agree with the resident's findings and plan as documented. SUBJECTIVE: Pt seen and examined in the ICU. Remains intubated, awake but not following commands. On CPAP/PS 10/5 but tachypneic and using accessory muscles, PS increased to 15 with improvement. OBJECTIVE: Vital Signs Period Temp Pulse Resp BP Sys/Goel Pulse Ox Last 24 Hr 98.6 F-98.9 F 76-115 16-25 107-153/58-84 97-99 Intake & Output 05/14/18 05/15/18 05/16/18 05/17/18 23:59 23:59 23:59 23:59 Intake Total 1869 1460 1634 Output Total 4650 2450 500 Balance -2781 -990 1134 Weight 79.515 kg 79.515 kg 79.515 kg Gen: intubated, awake Heart: RRR Lung: decreased breath sounds at the bases Abd: soft, nontender Ext: no edema CBC, BMP 05/17/18 05:30 05/17/18 05:30 Active Medications Acetaminophen (Tylenol -) 650 mg PO Q6H PRN PRN Reason: FEVER Last Admin: 05/15/18 17:31 Dose: 650 mg Amlodipine Besylate (Norvasc -) 10 mg PO DAILY [facility] Last Admin: 05/17/18 09:14 Dose: 10 mg Aspirin (Ecotrin -) 81 mg PO DAILY [facility] Last Admin: 05/17/18 09:14 Dose: 81 mg Atorvastatin Calcium (Lipitor -) 80 mg PO HS [facility] Last Admin: 05/16/18 21:27 Dose: 80 mg Dexamethasone (Decadron -) 2 mg NGT Q8H-IV [facility] Last Admin: 05/17/18 09:22 Dose: 2 mg Docusate Sodium (Colace -) 100 mg PO TID [facility] Last Admin: 05/17/18 06:17 Dose: 100 mg Fentanyl (Sublimaze Injection -) 50 mcg IVPUSH [id number] PRN PRN Reason: PAIN-PACU ORDER X 4 DOSES ONLY Last Admin: 05/11/18 20:55 Dose: 50 mcg Heparin Sodium (Porcine) (Heparin -) 5,000 unit SQ TID [facility] Last Admin: 05/17/18 06:17 Dose: 5,000 unit Propofol (Diprivan -) 1,000,000 mcg in 100 mls @ 2.507 mls/hr IVPB TITR [facility]; Protocol Last Admin: 05/17/18 00:00 Dose: 5 mcg/kg/min, 2.507 mls/hr Piperacillin Sod/Tazobactam (Sod 3.375 gm/ Dextrose) 50 mls @ 100 mls/hr IVPB Q8H-IV [facility]; Protocol Last Admin: 05/17/18 09:13 Dose: 100 mls/hr Sodium Chloride (1/2 Normal Saline) 1,000 mls @ 100 mls/hr IV ASDIR [facility] Last Admin: 05/17/18 13:08 Dose: 100 mls/hr Insulin Aspart (Novolog Vial Sliding Scale -) 1 vial SQ ACHS [facility]; Protocol Last Admin: 05/17/18 13:07 Dose: 9 units Insulin Detemir (Levemir Vial) 12 units SQ BID [facility] Last Admin: 05/17/18 10:17 Dose: 12 units Labetalol HCl 200 mg/ (Labetalol HCl 100 mg) 300 mg PO TID [facility] Last Admin: 05/17/18 06:17 Dose: 300 mg Levetiracetam (Keppra Injection -) 500 mg IVPB BID [facility] Last Admin: 05/17/18 09:13 Dose: 500 mg Lisinopril (Prinivil) 20 mg PO DAILY [facility] Last Admin: 05/17/18 09:14 Dose: 20 mg Ondansetron HCl (Zofran Injection) 4 mg IVPUSH Q6H PRN PRN Reason: NAUSEA AND/OR VOMITING Last Admin: 05/11/18 19:00 Dose: 4 mg Pantoprazole Sodium (Protonix Iv) 40 mg IVPUSH DAILY [facility] Last Admin: 05/17/18 09:13 Dose: 40 mg ASSESSMENT AND PLAN: 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 Acute Respiratory Failure Pneumonia Sepsis Atrial Fibrillation Acute Kidney Injury DM/Hyperglycemia - continue antibiotics - f/u cultures - continue decadron, antiepileptics per neuro - glucose control - increase free water with feeds - enteral feeds - spontaneous breathing trials as tolerated - DVT/GI prophylaxis - continue ICU monitoring critical care time spent in reviewing chart, evaluating patient and formulating plan 35 min
--- NOTE | 2018-05-17 14:20 | PN ---
Physical Exam: SUBJECTIVE: Patient seen and examined at bedside. We gave the patient a CPAP trial but he began to experience abdominal breathing and became tachypneic. His sputum grew MRSA so he was put on strict contact precautions. OBJECTIVE: Vital Signs Period Temp Pulse Resp BP Sys/Goel Pulse Ox Last 24 Hr 98.6 F-98.9 F 76-115 16-25 107-153/58-84 97-99 GENERAL: The patient is intubated, not sedated, awake, alert but not oriented, and in no significant distress. HEAD: Surgical head dressing. No erythematous areas. EYES: PERRL, sclera anicteric, conjunctiva clear. ENT: Ears normal, nares patent, oropharynx clear without exudates, moist mucous membranes. NECK: Trachea midline. LUNGS: Coarse breath sounds bilaterally. no crackles. HEART: Regular rate and rhythm, S1, S2 without murmur, rub or gallop. ABDOMEN: Soft, nontender, nondistended, normoactive bowel sounds, no guarding, no rebound, no hepatosplenomegaly, no masses. EXTREMITIES: 2+ pulses, warm, well-perfused, no edema. NEUROLOGICAL: Cannot assess. PSYCH: Poor eye contact. SKIN: Warm, dry, normal turgor, no rashes or lesions noted Laboratory Results - last 24 hr 05/16/18 05/16/18 05/16/18 11:54 16:35 16:35 WBC RBC Hgb Hct MCV MCH MCHC RDW Plt Count MPV Absolute Neuts (auto) Neutrophils % Lymphocytes % Monocytes % Eosinophils % Basophils % Nucleated RBC % Puncture Site ABG pH ABG pCO2 at Pt Temp ABG pO2 at Pt Temp ABG HCO3 ABG O2 Sat (Measured) ABG O2 Content ABG Base Excess Oziel Test Oxygen Flow Rate Vent Rate PEEP Pressure Support Vent Sodium Potassium Chloride Carbon Dioxide Anion Gap BUN Creatinine Creat Clearance w eGFR POC Glucometer > 400 Random Glucose Calcium Phosphorus Magnesium Total Bilirubin AST ALT Alkaline Phosphatase Total Protein Albumin Ur Random Sodium 22 L Urine Creatinine 87.0 H Random Vancomycin 05/16/18 05/17/18 05/17/18 21:25 05:30 05:30 WBC 8.2 RBC 3.65 L Hgb 10.1 L Hct 31.0 L MCV 85.2 MCH 27.8 MCHC 32.6 RDW 14.2 Plt Count 119 L MPV 10.4 Absolute Neuts (auto) 7.1 Neutrophils % 86.4 H Lymphocytes % 8.5 D Monocytes % 4.9 Eosinophils % 0.0 Basophils % 0.2 Nucleated RBC % 0 Puncture Site ABG pH ABG pCO2 at Pt Temp ABG pO2 at Pt Temp ABG HCO3 ABG O2 Sat (Measured) ABG O2 Content ABG Base Excess Oziel Test Oxygen Flow Rate Vent Rate PEEP Pressure Support Vent Sodium Potassium Chloride Carbon Dioxide Anion Gap BUN Creatinine Creat Clearance w eGFR POC Glucometer > 400 Random Glucose Calcium Phosphorus Magnesium Total Bilirubin AST ALT Alkaline Phosphatase Total Protein Albumin Ur Random Sodium Urine Creatinine Random Vancomycin 13.4 L 05/17/18 05/17/18 05/17/18 05:30 05:50 06:20 WBC RBC Hgb Hct MCV MCH MCHC RDW Plt Count MPV Absolute Neuts (auto) Neutrophils % Lymphocytes % Monocytes % Eosinophils % Basophils % Nucleated RBC % Puncture Site Right radial ABG pH 7.45 ABG pCO2 at Pt Temp 37.0 ABG pO2 at Pt Temp 115.0 H D ABG HCO3 25.3 ABG O2 Sat (Measured) 98.5 ABG O2 Content 13.8 L ABG Base Excess 1.8 Oziel Test No Result Required. Oxygen Flow Rate 40 Vent Rate 16 PEEP 5.0 Pressure Support Vent 450 Sodium 149 H Potassium 4.7 Chloride 115 H Carbon Dioxide 26 Anion Gap 8 BUN 102 H Creatinine 1.9 H Creat Clearance w eGFR 35.54 POC Glucometer [phone] Random Glucose 333 H* Calcium 8.4 L Phosphorus 3.1 Magnesium 3.3 H Total Bilirubin 0.4 AST 22 ALT 30 Alkaline Phosphatase 137 H Total Protein 5.5 L Albumin 2.2 L Ur Random Sodium Urine Creatinine Random Vancomycin Active Medications Generic Name Dose Route Start Last Admin Trade Name Freq PRN Reason Stop Dose Admin Acetaminophen 650 mg 05/13/18 10:24 05/15/18 17:31 Tylenol - PO 650 mg Q6H PRN Administration FEVER Amlodipine Besylate 10 mg 05/13/18 10:00 05/17/18 09:14 Norvasc - PO 10 mg DAILY [facility] Administration Aspirin 81 mg 05/15/18 10:00 05/17/18 09:14 Ecotrin - PO 81 mg DAILY [facility] Administration Atorvastatin Calcium 80 mg 05/13/18 22:00 05/16/18 21:27 Lipitor - PO 80 mg HS [facility] Administration Dexamethasone 2 mg 05/16/18 18:00 05/17/18 09:22 Decadron - NGT 2 mg Q8H-IV [facility] Administration Docusate Sodium 100 mg 05/11/18 22:00 05/17/18 06:17 Colace - PO 100 mg TID [facility] Administration Fentanyl 50 mcg 05/11/18 17:57 05/11/18 20:55 Sublimaze Injection - IVPUSH 50 mcg [id number] PRN Administration PAIN-PACU ORDER X 4 DOSES ONLY Heparin Sodium (Porcine) 5,000 unit 05/11/18 22:00 05/17/18 06:17 Heparin - SQ 5,000 unit TID [facility] Administration Propofol 1,000,000 mcg in 100 mls @ 2.507 mls/hr 05/14/18 23:45 05/17/18 00: 00 Diprivan - IVPB 5 mcg/kg/min TITR [facility] 2.507 mls/hr Administration Protocol 5 MCG/KG/MIN Piperacillin Sod/Tazobactam 50 mls @ 100 mls/hr 05/15/18 18:00 05/17/18 09:13 Sod 3.375 gm/ Dextrose IVPB 100 mls/hr Q8H-IV [facility] Administration Protocol Sodium Chloride 1,000 mls @ 100 mls/hr 05/17/18 12:27 05/17/18 13:08 1/2 Normal Saline IV 100 mls/hr ASDIR [facility] Administration Insulin Aspart 1 vial 05/16/18 17:19 05/17/18 13:07 Novolog Vial Sliding Scale - SQ 9 units ACHS [facility] Administration Protocol Insulin Detemir 12 units 05/16/18 12:45 05/17/18 10:17 Levemir Vial SQ 12 units BID [facility] Administration Labetalol HCl 200 mg/ 300 mg 05/13/18 14:00 05/17/18 06:17 Labetalol HCl 100 mg PO 300 mg TID [facility] Administration Levetiracetam 500 mg 05/11/18 22:00 05/17/18 09:13 Keppra Injection - IVPB 500 mg BID [facility] Administration Lisinopril 20 mg 05/13/18 10:00 05/17/18 09:14 Prinivil PO 20 mg DAILY [facility] Administration Ondansetron HCl 4 mg 05/11/18 17:57 05/11/18 19:00 Zofran Injection IVPUSH 4 mg Q6H PRN Administration NAUSEA AND/OR VOMITING Pantoprazole Sodium 40 mg 05/12/18 10:00 05/17/18 09:13 Protonix Iv IVPUSH 40 mg DAILY [facility] Administration ASSESSMENT/PLAN: Assessment: 67 yo M w a hx of AFIB, recent hemorrhagic CVA, T2DM is here s/p Left frontal craniotomy and blood clot removal after being operated on by Dr. Taveras. There are X-ray changes which suggest an infiltrate or atelectasis in the left base. Of note, today his glucose is 333. He has an QI. BUN has increased to 102 and Cr has went up to 1.9 Plan: Nephro: -QI - likely Pre-renal injury - Kidney US showed no hydronephrosis or stones b/l - Urine lites back. - Nephro Consulted and recommends hypotonic fluids. Cardio: - Strict BP control with systolic < 130 - 1/2 NS 100 mls/hr - Lebatalol for elevated BP or rate control PRN ID: - ID consulted - PNA: Abx for HCAP vs aspiration. - Positive Strep pneumo in the urine. - Positive MRSA in sputum - Vanc and zosyn being given - Contact precautions Pulm: - Intubated - ABG BID - Plan is to try and extubate him tomorrow Neuro: - Daily sedation vacations to assess mental status - Keppra 500 mg for seizure prohylaxis. - Head of the bead 30 degrees. GI: - Aspiration precautions. - Protonix 40 - Zofran PRN Endo: - Decadron to 2Q8 - Sliding scale - frequent glucose checks Prophylaxis: - Aspiration precautions. - Heparin 5000 TID F/E/N: - tube feeds - glucerna - Replete lytes PRN - 1/2 NS 100 mls/hr Code Status: - Full code Dispo: - Patient will continue to receive monitoring in the ICU. Visit type - Emergency Visit Emergency Visit: Yes ED Registration Date: 05/10/18 Care time: The patient presented to the Emergency Department on the above date and was hospitalized for further evaluation of their emergent condition. - New Patient This patient is new to me today: No - Critical Care Critical Care patient: Yes Total Critical Care Time (in minutes): 36 Critical Care Statement: The care of this patient involved high complexity decision making to prevent further life threatening deterioration of the patient 's condition and/or to evaluate & treat vital organ system(s) failure or risk of failure.
[2018-05-17] MEDS ORDERED: BENZOIN/ALOE VERA/STORAX/TOLU 58 ML BOTTLE ONE (16:07)
[2018-05-17] MEDS: ATORVASTATIN CA 80 MG TABLET (FP) PO SCH (21:52)
[2018-05-17] MEDS: PROPOFOL 1,000,000 MCG/100 ML VIAL IVPB SCH ×2 (22:00)
[2018-05-18] MEDS ORDERED: PIPERACILLIN/TAZOBACTAM 3.375 GM VIAL IVPB ONE ×3 (00:37→15:17)
[2018-05-18] MEDS ORDERED: DEXTROSE 5%-WATER - 50 ML IVPB ONE ×3 (00:38→15:17)
[2018-05-18] MEDS: PIPERACILLIN/TAZOB 3.375 GM 3.375 GM in DEXTROSE 5%-WATER - 50 ML IVPB SCH ×3 (01:19→17:10)
[2018-05-18] MEDS: DEXAMETHASONE 4 MG TABLET (FP) NGT SCH ×3 (01:21→17:11)
[2018-05-18] MEDS ORDERED: LABETALOL HCL 200 MG TABLET (FP) ONE ×3 (05:53→20:44)
[2018-05-18] MEDS ORDERED: LABETALOL HCL 100 MG TABLET (FP) ONE ×3 (05:53→20:44)
[2018-05-18 05:54] LABS: BASO % 0.1 % (0-2.0); HEMATOCRIT 30.8 % (35.4-49); HEMOGLOBIN 9.8 GM/dL (11.7-16.9); LYMPH % 4.6 % (8-40); MCH 27.4 pg (25.7-33.7); MEAN CELL VOLUME 85.7 fl (80-96); MEAN PLT VOLUME 10.9 fl (7.5-11.1); MONO % 4.8 % (3.8-10.2); NEUT % 90.5 % (42.8-82.8); PLATELET COUNT 118 K/MM3 (134-434); RBC 3.59 M/mm3 (4.00-5.60); RDW 14.2 % (11.9-15.9); WHITE BLOOD COUNT 9.5 K/mm3 (4.0-10.0)
[2018-05-18] MEDS: HEPARIN NA (PORCINE) 5,000 UNITS/ML 1ML VIAL SQ SCH ×2 (05:55→12:59)
[2018-05-18] MEDS: LABETALOL HCL 200 MG, LABETALOL HCL 100 MG PO SCH ×3 (05:55→21:37)
[2018-05-18 06:13] LABS: ALBUMIN 2.1 g/dl (3.4-5.0); ALK PHOS 133 U/L (45-117); ANION GAP 5 MMOL/L (8-16); BILIRUBIN,TOTAL 0.4 mg/dL (0.2-1); BLOOD UREA NITROGEN 81 mg/dL (7-18); CALCIUM 8.5 mg/dL (8.5-10.1); CHLORIDE 115 mmol/L (98-107); CO2 31 mmol/L (21-32); CREATININE 1.5 mg/dL (0.55-1.3); GLUCOSE,RANDOM 253 mg/dL (74-106); PHOSPHOROUS 2.6 mg/dL (2.5-4.9); POTASSIUM 5.1 mmol/L (3.5-5.1); SGOT/AST 26 U/L (15-37); SGPT/ALT 33 U/L (13-61); SODIUM 151 mmol/L (136-145); TOT PROT 5.4 g/dl (6.4-8.2)
[2018-05-18] MEDS: INSULIN SLIDING SCALE (NOVOLOG) 1 VIAL SQ SCH ×4 (06:43→23:04)
[2018-05-18] MEDS: DOCUSATE SODIUM 100 MG CAPSULE (FP) PO SCH ×3 (06:44→21:38)
[2018-05-18 07:00] LABS: ARTERIAL BLD GAS O2 SATURATION 96.1 % (90-98.9); ARTERIAL BLOOD GAS BASE EXCESS 3.1 meq/l (-2-2); ARTERIAL BLOOD GAS PO2 83.9 mmHg (80-100); ARTERIAL BLOOD GAS pH 7.45 (7.35-7.45)
[2018-05-18 07:16] LABS: ALLENS TEST POSITIVE
--- NOTE | 2018-05-18 09:28 | PATH ---
Surgical Pathology Report Patient Name: NIKKI WORTHY Med. Rec. #: [id number] /Age/Gender: 1950 (Age: 67) / M Account: [id number] Location: ICU [employer] Taken: 05/11/2018 Received: 05/11/2018 Reported: 05/18/2018 Physicians: Yoel Booth M.D. PHYSICIAN EMERGENCY DEPT Specimen(s) Received A: LEFT THALAMIC HEMORRHAGIC LESION B: LEFT THALAMIC HEMORRHAGIC LESION Clinical History Intracranial hemorrhage Intraoperative Consult Diagnosis Left thalamic hemorrhagic lesion, frozen section: Predominantly comprised of blood. No high grade glial neoplasm identified. Dr. Helm, 05/11/18. Final Diagnosis A. HEMORRHAGIC THALAMIC LESION, LEFT, BIOPSY (FS): ORGANIZING BLOOD CLOT/HEMATOMA AND SURROUNDING REACTIVE CHANGES. B. HEMORRHAGIC THALAMIC LESION, LEFT, BIOPSY: ORGANIZING BLOOD CLOT/HEMATOMA AND SURROUNDING BRAIN PARENCHYMA WITH REACTIVE CHANGES. SEE COMMENT. Comment: Histologic sections show an organizing blood clot/hematoma. Immunohistochemical stains performed and interpreted at [facility] show CD68+ macrophages in a periphery of the hemorrhage, while adjacent brain parenchyma are highlighted by GFAP. Cytokeratin AE1/3 is negative. Suggest clinical and radiologic correlation. Findings discussed with Dr. Booth. Electronically Signed Liset Herrera M.D. Gross Description A. Received fresh for immediate intraoperative consultation labeled "left thalamic hemorrhagic lesion" is a hemorrhagic lesion measuring 0.3 x 0.2 x 0.1 cm. Touch preparation was performed. The entire specimen is submitted for frozen section analysis in one cassette, FS1. MLSZ/05/11/2018 B. Received in formalin, labeled "left thalamic hemorrhagic lesion" are multiple dark brown blood clots admixed with scanty soft tissue together measuring 3.0 x 3.0 x 1.2 cm in aggregate. The specimen is entirely submitted in 4 cassettes. KWS/05/12/2018 san/05/11/2018
[2018-05-18] MEDS: PANTOPRAZOLE SODIUM 40 MG VIAL IVPUSH SCH (09:33)
[2018-05-18] MEDS: LISINOPRIL 20 MG TABLET (FP) PO SCH (09:33)
[2018-05-18] MEDS: ASPIRIN COATED 81 MG TABLET.EC PO SCH (09:33)
[2018-05-18] MEDS: levETIRAcetam 500 MG/5 ML INJECTION VIAL IVPB SCH ×2 (09:33→21:38)
[2018-05-18] MEDS: amLODIPine BESYLATE 10 MG TABLET (FP) PO SCH (09:33)
[2018-05-18] MEDS: INSULIN (LEVEMIR) 100 UNITS/ML UNITS SQ SCH ×2 (09:34→22:35)
--- NOTE | 2018-05-18 10:54 | PN ---
Progress Note (short form) - Note Progress Note: 67 year old male history of DM, Neuropathy, had recent brain bleed, he also have history of atrial fibrillation. Patient fell out of wheel chair. He has ct scan done showed left basal ganglia bleed and old right parietal lobe infarct. He underwent craniotomy by Dr Aden and clot removal. Patient is still intubated and sedation is on hold today since 6 am, no meaningful response, he i staring and no verbal communication. Neurological Examination( Limited Neuro exam) He was awake opens eye spontaneously he do not follow command, right sided hemiparesis His vital is normal, no neck stiffness pupils is reactive, small, mild right facial palsy Assessment: left basal ganglia bleed with intra ventricular extension. S/P Craniotomy on May 11 and clot removal. Plan: 1. 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 2. continue icu are adn supportive care 3. I would do eeg for rule out any subclinical status Will continue to follow with primary Thanking you so much Avelino Phoenix MD
[2018-05-18] MEDS: ACETAMINOPHEN 325 MG TABLET (FP) PO PRN (11:04)
--- NOTE | 2018-05-18 13:18 | PN ---
Teaching Attending Note Name of Resident: Can Ledbetter ATTENDING PHYSICIAN STATEMENT I saw and evaluated the patient. I reviewed the resident's note and discussed the case with the resident. I agree with the resident's findings and plan as documented. SUBJECTIVE: Patient seen and examined at bedside. Remains intubated and sedated. AC Mode of vent. No pressors. Mental status waxing and waning. Not able to follow commands. CXR: rotated / increasing pulmonary vascular congestion. OBJECTIVE: Intake & Output 05/15/18 05/16/18 05/17/18 05/18/18 23:59 23:59 23:59 23:59 Intake Total 1869 1460 4988 1552 Output Total 4650 2450 2450 600 Balance -2781 -990 2538 952 Weight 175 lb 4.8 oz 175 lb 4.8 oz 175 lb 4.8 oz 179 lb 12.8 oz Last Vital Signs Temp Pulse Resp BP Pulse Ox 99.6 F 84 22 H 141/70 94 L 05/18/18 08:46 05/18/18 12:00 05/18/18 12:00 05/18/18 12:00 05/18/18 09:09 Active Medications Acetaminophen (Tylenol -) 650 mg PO Q6H PRN PRN Reason: FEVER Last Admin: 05/18/18 11:04 Dose: 650 mg Amlodipine Besylate (Norvasc -) 10 mg PO DAILY [facility] Last Admin: 05/18/18 09:33 Dose: 10 mg Aspirin (Ecotrin -) 81 mg PO DAILY [facility] Last Admin: 05/18/18 09:33 Dose: 81 mg Atorvastatin Calcium (Lipitor -) 80 mg PO HS [facility] Last Admin: 05/17/18 21:52 Dose: 80 mg Dexamethasone (Decadron -) 2 mg NGT Q8H-IV [facility] Last Admin: 05/18/18 09:33 Dose: 2 mg Docusate Sodium (Colace -) 100 mg PO TID [facility] Last Admin: 05/18/18 06:44 Dose: Not Given Fentanyl (Sublimaze Injection -) 50 mcg IVPUSH [id number] PRN PRN Reason: PAIN-PACU ORDER X 4 DOSES ONLY Last Admin: 05/11/18 20:55 Dose: 50 mcg Heparin Sodium (Porcine) (Heparin -) 5,000 unit SQ TID [facility] Last Admin: 05/18/18 12:59 Dose: 5,000 unit Propofol (Diprivan -) 1,000,000 mcg in 100 mls @ 2.507 mls/hr IVPB TITR [facility]; Protocol Last Admin: 05/17/18 22:00 Dose: 7.97 mcg/kg/min, 4 mls/hr Piperacillin Sod/Tazobactam (Sod 3.375 gm/ Dextrose) 50 mls @ 100 mls/hr IVPB Q8H-IV [facility]; Protocol Last Admin: 05/18/18 09:33 Dose: 100 mls/hr Sodium Chloride (1/2 Normal Saline) 1,000 mls @ 100 mls/hr IV ASDIR [facility] Last Admin: 05/17/18 13:08 Dose: 100 mls/hr Insulin Aspart (Novolog Vial Sliding Scale -) 1 vial SQ ACHS [facility]; Protocol Last Admin: 05/18/18 11:29 Dose: Not Given Insulin Detemir (Levemir Vial) 12 units SQ BID [facility] Last Admin: 05/18/18 09:34 Dose: 12 units Labetalol HCl 200 mg/ (Labetalol HCl 100 mg) 300 mg PO TID [facility] Last Admin: 05/18/18 12:59 Dose: 300 mg Levetiracetam (Keppra Injection -) 500 mg IVPB BID [facility] Last Admin: 05/18/18 09:33 Dose: 500 mg Lisinopril (Prinivil) 20 mg PO DAILY [facility] Last Admin: 05/18/18 09:33 Dose: 20 mg Ondansetron HCl (Zofran Injection) 4 mg IVPUSH Q6H PRN PRN Reason: NAUSEA AND/OR VOMITING Last Admin: 05/11/18 19:00 Dose: 4 mg Pantoprazole Sodium (Protonix Iv) 40 mg IVPUSH DAILY [facility] Last Admin: 05/18/18 09:33 Dose: 40 mg GENERAL: intubated and sedated, NAD HEAD: Surgical head dressing. EYES: PERRL, sclera anicteric, conjunctiva clear. ENT: moist mucous membranes. NECK: Trachea midline. LUNGS: Vented, coarse breath sounds Left > Right, no wheezes. HEART: Regular rate and rhythm, S1, S2 without murmur, rub or gallop. ABDOMEN: Soft, nontender, nondistended, normoactive bowel sounds, no guarding, no rebound, no hepatosplenomegaly, no masses. EXTREMITIES: 2+ pulses, warm, well-perfused, no edema. NEUROLOGICAL: sedated PSYCH: sedated SKIN: Warm, dry, normal turgor, no rashes or lesions noted Laboratory Results - last 24 hr 05/10/18 05/17/18 05/17/18 05:30 12:18 17:27 WBC RBC Hgb Hct MCV MCH MCHC RDW Plt Count MPV Absolute Neuts (auto) Neutrophils % Lymphocytes % Monocytes % Eosinophils % Basophils % Nucleated RBC % Anticoagulation Therapy Puncture Site ABG pH ABG pCO2 at Pt Temp ABG pO2 at Pt Temp ABG HCO3 ABG O2 Sat (Measured) ABG O2 Content ABG Base Excess Oziel Test O2 Delivery Device Oxygen Flow Rate Vent Mode Vent Rate Mechanical Rate Pressure Support Vent Sodium Potassium Chloride Carbon Dioxide Anion Gap BUN Creatinine Creat Clearance w eGFR POC Glucometer [phone] Random Glucose Calcium Phosphorus Magnesium Total Bilirubin AST ALT Alkaline Phosphatase Total Protein Albumin Random Vancomycin Blood Type A POSITIVE 05/17/18 05/18/18 05/18/18 22:00 05:30 05:30 WBC 9.5 RBC 3.59 L Hgb 9.8 L Hct 30.8 L MCV 85.7 MCH 27.4 MCHC 32.0 RDW 14.2 Plt Count 118 L MPV 10.9 Absolute Neuts (auto) 8.6 H Neutrophils % 90.5 H Lymphocytes % 4.6 L D Monocytes % 4.8 Eosinophils % 0.0 Basophils % 0.1 Nucleated RBC % 0 Anticoagulation Therapy Puncture Site ABG pH ABG pCO2 at Pt Temp ABG pO2 at Pt Temp ABG HCO3 ABG O2 Sat (Measured) ABG O2 Content ABG Base Excess Oziel Test O2 Delivery Device Oxygen Flow Rate Vent Mode Vent Rate Mechanical Rate Pressure Support Vent Sodium 151 H Potassium 5.1 Chloride 115 H Carbon Dioxide 31 Anion Gap 5 L BUN 81 H Creatinine 1.5 H Creat Clearance w eGFR 46.68 POC Glucometer [phone] Random Glucose 253 H Calcium 8.5 Phosphorus 2.6 Magnesium 3.0 H Total Bilirubin 0.4 AST 26 ALT 33 Alkaline Phosphatase 133 H Total Protein 5.4 L Albumin 2.1 L Random Vancomycin Blood Type 05/18/18 05/18/18 05/18/18 06:00 06:00 06:19 WBC RBC Hgb Hct MCV MCH MCHC RDW Plt Count MPV Absolute Neuts (auto) Neutrophils % Lymphocytes % Monocytes % Eosinophils % Basophils % Nucleated RBC % Anticoagulation Therapy No Result Required. Puncture Site Left radial ABG pH 7.45 ABG pCO2 at Pt Temp 39.0 ABG pO2 at Pt Temp 83.9 D ABG HCO3 26.8 H ABG O2 Sat (Measured) 96.1 ABG O2 Content 11.0 L ABG Base Excess 3.1 H Oziel Test Positive O2 Delivery Device A/c Oxygen Flow Rate 40% Vent Mode No Result Required. Vent Rate No Result Required. Mechanical Rate No Result Required. Pressure Support Vent No Result Required. Sodium Potassium Chloride Carbon Dioxide Anion Gap BUN Creatinine Creat Clearance w eGFR POC Glucometer [phone] Random Glucose Calcium Phosphorus Magnesium Total Bilirubin AST ALT Alkaline Phosphatase Total Protein Albumin Random Vancomycin 13.8 L Blood Type ASSESSMENT/PLAN: Acute Respiratory Failure (3rd intubation) POD#7 Left frontal craniotomy, excision of thalamic hermorrhagic mass AFIB Recent hemorrhagic CVA DM Sedation vacation to assess mental status Enteral feeds BP control Wean FiO2 D.C IVF ABX coverage [facility] Head of bed: 30 degrees. PPI Decadron ICU monitoring Dr Gatica Critical Care patient: Yes Total Critical Care Time (in minutes): 36 Critical Care Statement: The care of this patient involved high complexity decision making to prevent further life threatening deterioration of the patient 's condition and/or to evaluate & treat vital organ system(s) failure or risk of failure.
[2018-05-18] MEDS ORDERED: DEXTROSE 50%-WATER - 25 GM/50 ML VIAL ONE (16:21)
[2018-05-18] MEDS ORDERED: SODIUM CHLORIDE 0.9% 500 ML INFUS.BAG IV ONE (16:56)
[2018-05-18] MEDS ORDERED: VANCOMYCIN 1,000 MG in DEXTROSE 5%-WATER - 250 ML IVPB ONE (17:01)
[2018-05-18] MEDS ORDERED: DEXTROSE 50%-WATER - 25 GM/50 ML VIAL IVPUSH ONE (17:03)
--- NOTE | 2018-05-18 17:03 | PN ---
Physical Exam: SUBJECTIVE: Patient seen and examined at bedside. He remains intubated. We put him on a sedation vacation today to assess his mental status. He wakes up and stares into the room. Does not follow commands. His urine culture grew E fecalis. He is beginning to develop fluid in his lungs. OBJECTIVE: Vital Signs Period Temp Pulse Resp BP Sys/Goel Pulse Ox Last 24 Hr 98.2 F-99.9 F 84-102 16-27 119-146/63-86 94-95 GENERAL: The patient is intubated, not sedated, awake, not oriented, and in no significant distress. HEAD: Surgical head dressing. No erythematous areas. EYES: PERRL, sclera anicteric, conjunctiva clear. ENT: Ears normal, nares patent, oropharynx clear without exudates, moist mucous membranes. NECK: Trachea midline. LUNGS: Coarse breath sounds bilaterally. no crackles. HEART: Regular rate and rhythm, S1, S2 without murmur, rub or gallop. ABDOMEN: Soft, nondistended, normoactive bowel sounds. EXTREMITIES: 2+ pulses, warm, well-perfused, no edema. NEUROLOGICAL: Pupils equal and reactive. + gag reflex. Patient blinks with stimuli. Cannot assess further. PSYCH: Poor eye contact. SKIN: Warm, dry, normal turgor, no rashes or lesions noted Laboratory Results - last 24 hr 05/17/18 05/17/18 05/17/18 12:18 17:27 22:00 WBC RBC Hgb Hct MCV MCH MCHC RDW Plt Count MPV Absolute Neuts (auto) Neutrophils % Lymphocytes % Monocytes % Eosinophils % Basophils % Nucleated RBC % Anticoagulation Therapy Puncture Site ABG pH ABG pCO2 at Pt Temp ABG pO2 at Pt Temp ABG HCO3 ABG O2 Sat (Measured) ABG O2 Content ABG Base Excess Oziel Test O2 Delivery Device Oxygen Flow Rate Vent Mode Vent Rate Mechanical Rate Pressure Support Vent Sodium Potassium Chloride Carbon Dioxide Anion Gap BUN Creatinine Creat Clearance w eGFR POC Glucometer [phone] [phone] Random Glucose Calcium Phosphorus Magnesium Total Bilirubin AST ALT Alkaline Phosphatase Total Protein Albumin Random Vancomycin 05/18/18 05/18/18 05/18/18 05:30 05:30 06:00 WBC 9.5 RBC 3.59 L Hgb 9.8 L Hct 30.8 L MCV 85.7 MCH 27.4 MCHC 32.0 RDW 14.2 Plt Count 118 L MPV 10.9 Absolute Neuts (auto) 8.6 H Neutrophils % 90.5 H Lymphocytes % 4.6 L D Monocytes % 4.8 Eosinophils % 0.0 Basophils % 0.1 Nucleated RBC % 0 Anticoagulation Therapy No Result Required. Puncture Site Left radial ABG pH 7.45 ABG pCO2 at Pt Temp 39.0 ABG pO2 at Pt Temp 83.9 D ABG HCO3 26.8 H ABG O2 Sat (Measured) 96.1 ABG O2 Content 11.0 L ABG Base Excess 3.1 H Oziel Test Positive O2 Delivery Device A/c Oxygen Flow Rate 40% Vent Mode No Result Required. Vent Rate No Result Required. Mechanical Rate No Result Required. Pressure Support Vent No Result Required. Sodium 151 H Potassium 5.1 Chloride 115 H Carbon Dioxide 31 Anion Gap 5 L BUN 81 H Creatinine 1.5 H Creat Clearance w eGFR 46.68 POC Glucometer Random Glucose 253 H Calcium 8.5 Phosphorus 2.6 Magnesium 3.0 H Total Bilirubin 0.4 AST 26 ALT 33 Alkaline Phosphatase 133 H Total Protein 5.4 L Albumin 2.1 L Random Vancomycin 05/18/18 05/18/18 06:00 06:19 WBC RBC Hgb Hct MCV MCH MCHC RDW Plt Count MPV Absolute Neuts (auto) Neutrophils % Lymphocytes % Monocytes % Eosinophils % Basophils % Nucleated RBC % Anticoagulation Therapy Puncture Site ABG pH ABG pCO2 at Pt Temp ABG pO2 at Pt Temp ABG HCO3 ABG O2 Sat (Measured) ABG O2 Content ABG Base Excess Oziel Test O2 Delivery Device Oxygen Flow Rate Vent Mode Vent Rate Mechanical Rate Pressure Support Vent Sodium Potassium Chloride Carbon Dioxide Anion Gap BUN Creatinine Creat Clearance w eGFR POC Glucometer [phone] Random Glucose Calcium Phosphorus Magnesium Total Bilirubin AST ALT Alkaline Phosphatase Total Protein Albumin Random Vancomycin 13.8 L Active Medications Generic Name Dose Route Start Last Admin Trade Name Freq PRN Reason Stop Dose Admin Acetaminophen 650 mg 05/13/18 10:24 05/18/18 11:04 Tylenol - PO 650 mg Q6H PRN Administration FEVER Amlodipine Besylate 10 mg 05/13/18 10:00 05/18/18 09:33 Norvasc - PO 10 mg DAILY [facility] Administration Aspirin 81 mg 05/15/18 10:00 05/18/18 09:33 Ecotrin - PO 81 mg DAILY [facility] Administration Atorvastatin Calcium 80 mg 05/13/18 22:00 05/17/18 21:52 Lipitor - PO 80 mg HS [facility] Administration Dexamethasone 2 mg 05/16/18 18:00 05/18/18 09:33 Decadron - NGT 2 mg Q8H-IV [facility] Administration Docusate Sodium 100 mg 05/11/18 22:00 05/18/18 16:12 Colace - PO Not Given TID [facility] Fentanyl 50 mcg 05/11/18 17:57 05/11/18 20:55 Sublimaze Injection - IVPUSH 50 mcg [id number] PRN Administration PAIN-PACU ORDER X 4 DOSES ONLY Heparin Sodium (Porcine) 5,000 unit 05/11/18 22:00 05/18/18 12:59 Heparin - SQ 5,000 unit TID [facility] Administration Propofol 1,000,000 mcg in 100 mls @ 2.507 mls/hr 05/14/18 23:45 05/17/18 22: 00 Diprivan - IVPB 7.97 mcg/kg/min TITR [facility] 4 mls/hr Administration Protocol 5 MCG/KG/MIN Piperacillin Sod/Tazobactam 50 mls @ 100 mls/hr 05/15/18 18:00 05/18/18 09:33 Sod 3.375 gm/ Dextrose IVPB 100 mls/hr Q8H-IV [facility] Administration Protocol Insulin Aspart 1 vial 05/16/18 17:19 05/18/18 16:31 Novolog Vial Sliding Scale - SQ Not Given ACHS [facility] Protocol Insulin Detemir 12 units 05/16/18 12:45 05/18/18 09:34 Levemir Vial SQ 12 units BID [facility] Administration Labetalol HCl 200 mg/ 300 mg 05/13/18 14:00 05/18/18 12:59 Labetalol HCl 100 mg PO 300 mg TID [facility] Administration Levetiracetam 500 mg 05/11/18 22:00 05/18/18 09:33 Keppra Injection - IVPB 500 mg BID [facility] Administration Lisinopril 20 mg 05/13/18 10:00 05/18/18 09:33 Prinivil PO 20 mg DAILY [facility] Administration Ondansetron HCl 4 mg 05/11/18 17:57 11/01/18 19:00 Zofran Injection IVPUSH 4 mg Q6H PRN Administration NAUSEA AND/OR VOMITING Pantoprazole Sodium 40 mg 05/12/18 10:00 05/18/18 09:33 Protonix Iv IVPUSH 40 mg DAILY [facility] Administration ASSESSMENT/PLAN: Assessment: 67 yo M w a hx of AFIB, recent hemorrhagic CVA, T2DM is here s/p Left frontal craniotomy and blood clot removal after being operated on by Dr. Taveras. There are X-ray changes which suggest an infiltrate or atelectasis in the left base. Of note, today his glucose is 253. He has an QI. BUN has increased to 81 and Cr has went up to 1.5 Plan: Nephro: - QI - likely Pre-renal injury - Kidney US showed no hydronephrosis or stones b/l - Urine lites back. - Nephro Consulted and recommends hypotonic fluids. Cardio: - Strict BP control with systolic < 130 - Lebatalol for elevated BP or rate control PRN ID: - ID consulted - PNA: Abx for HCAP vs aspiration. - Positive Strep pneumo in the urine. - Positive MRSA in sputum - Positive E fecalis in urine - Vanc and zosyn being given - Contact precautions Pulm: - Intubated - ABG BID - Try to wean from vent tomorrow Neuro: - Daily sedation vacations to assess mental status - Keppra 500 mg for seizure prohylaxis. - Head of the bead 30 degrees. GI: - Aspiration precautions. - Protonix 40 - Zofran PRN Endo: - Decadron to 2Q8 - Sliding scale - frequent glucose checks Prophylaxis: - Aspiration precautions. - Heparin 5000 TID F/E/N: - tube feeds - glucerna - Replete lytes PRN - No standing fluids today Code Status: - Full code Dispo: - Patient will continue to receive monitoring in the ICU. Visit type - Emergency Visit Emergency Visit: Yes ED Registration Date: 05/10/18 Care time: The patient presented to the Emergency Department on the above date and was hospitalized for further evaluation of their emergent condition. - New Patient This patient is new to me today: No - Critical Care Critical Care patient: Yes Total Critical Care Time (in minutes): 36 Critical Care Statement: The care of this patient involved high complexity decision making to prevent further life threatening deterioration of the patient 's condition and/or to evaluate & treat vital organ system(s) failure or risk of failure.
--- NOTE | 2018-05-18 17:03 | PN ---
Progress Note, Physician History of Present Illness: Pt seen and examined at bedside. He remains in the ICU. He remains intubated. - Current Medication List Current Medications: Active Medications Acetaminophen (Tylenol -) 650 mg PO Q6H PRN PRN Reason: FEVER Last Admin: 05/18/18 11:04 Dose: 650 mg Amlodipine Besylate (Norvasc -) 10 mg PO DAILY [facility] Last Admin: 05/18/18 09:33 Dose: 10 mg Aspirin (Ecotrin -) 81 mg PO DAILY [facility] Last Admin: 05/18/18 09:33 Dose: 81 mg Atorvastatin Calcium (Lipitor -) 80 mg PO HS [facility] Last Admin: 05/17/18 21:52 Dose: 80 mg Dexamethasone (Decadron -) 2 mg NGT Q8H-IV [facility] Last Admin: 05/18/18 09:33 Dose: 2 mg Docusate Sodium (Colace -) 100 mg PO TID [facility] Last Admin: 05/18/18 16:12 Dose: Not Given Fentanyl (Sublimaze Injection -) 50 mcg IVPUSH [id number] PRN PRN Reason: PAIN-PACU ORDER X 4 DOSES ONLY Last Admin: 05/11/18 20:55 Dose: 50 mcg Heparin Sodium (Porcine) (Heparin -) 5,000 unit SQ TID [facility] Last Admin: 05/18/18 12:59 Dose: 5,000 unit Propofol (Diprivan -) 1,000,000 mcg in 100 mls @ 2.507 mls/hr IVPB TITR [facility]; Protocol Last Admin: 05/17/18 22:00 Dose: 7.97 mcg/kg/min, 4 mls/hr Piperacillin Sod/Tazobactam (Sod 3.375 gm/ Dextrose) 50 mls @ 100 mls/hr IVPB Q8H-IV [facility]; Protocol Last Admin: 05/18/18 09:33 Dose: 100 mls/hr Insulin Aspart (Novolog Vial Sliding Scale -) 1 vial SQ ACHS [facility]; Protocol Last Admin: 05/18/18 16:31 Dose: Not Given Insulin Detemir (Levemir Vial) 12 units SQ BID [facility] Last Admin: 05/18/18 09:34 Dose: 12 units Labetalol HCl 200 mg/ (Labetalol HCl 100 mg) 300 mg PO TID [facility] Last Admin: 05/18/18 12:59 Dose: 300 mg Levetiracetam (Keppra Injection -) 500 mg IVPB BID [facility] Last Admin: 05/18/18 09:33 Dose: 500 mg Lisinopril (Prinivil) 20 mg PO DAILY [facility] Last Admin: 05/18/18 09:33 Dose: 20 mg Ondansetron HCl (Zofran Injection) 4 mg IVPUSH Q6H PRN PRN Reason: NAUSEA AND/OR VOMITING Last Admin: 05/11/18 19:00 Dose: 4 mg Pantoprazole Sodium (Protonix Iv) 40 mg IVPUSH DAILY [facility] Last Admin: 05/18/18 09:33 Dose: 40 mg - Objective Vital Signs: Vital Signs Temperature 98.9 F 05/18/18 13:18 Pulse Rate 96 H 05/18/18 16:00 Respiratory Rate 22 H 05/18/18 16:32 Blood Pressure 129/73 05/18/18 16:00 O2 Sat by Pulse Oximetry (%) 94 L 05/18/18 09:09 Constitutional: Yes: Calm Eyes: Yes: Conjunctiva Clear HENT: Yes: Other (s/p craneotomy) Cardiovascular: Yes: S1, S2 Respiratory: Yes: Mechanically Ventilated Gastrointestinal: Yes: Soft Genitourinary: Yes: Smith Present Musculoskeletal: Yes: Muscle Weakness Edema: No Neurological: Yes: Lethargy Labs: CBC, BMP 05/18/18 05:30 05/18/18 05:30 INR, PTT INR 1.06 (0.83-1.09) 05/10/18 16:15 Problem List - Problems (1) Hypernatremia Code(s): E87.0 - HYPEROSMOLALITY AND HYPERNATREMIA (2) QI (acute kidney injury) Code(s): N17.9 - ACUTE KIDNEY FAILURE, UNSPECIFIED (3) Diabetes Code(s): E11.9 - TYPE 2 DIABETES MELLITUS WITHOUT COMPLICATIONS Assessment/Plan Current Medications Generic Name Dose Route Start Last Admin Trade Name Freq PRN Reason Stop Dose Admin Acetaminophen 650 mg 05/13/18 10:24 05/18/18 11:04 Tylenol - PO 650 mg Q6H PRN Administration FEVER Amlodipine Besylate 10 mg 05/13/18 10:00 05/18/18 09:33 Norvasc - PO 10 mg DAILY [facility] Administration Aspirin 81 mg 05/15/18 10:00 05/18/18 09:33 Ecotrin - PO 81 mg DAILY [facility] Administration Atorvastatin Calcium 80 mg 05/13/18 22:00 05/17/18 21:52 Lipitor - PO 80 mg HS [facility] Administration Dexamethasone 2 mg 05/16/18 18:00 05/18/18 09:33 Decadron - NGT 2 mg Q8H-IV [facility] Administration Docusate Sodium 100 mg 05/11/18 22:00 05/18/18 16:12 Colace - PO Not Given TID [facility] Fentanyl 50 mcg 05/11/18 17:57 05/11/18 20:55 Sublimaze Injection - IVPUSH 50 mcg [id number] PRN Administration PAIN-PACU ORDER X 4 DOSES ONLY Heparin Sodium (Porcine) 5,000 unit 05/11/18 22:00 05/18/18 12:59 Heparin - SQ 5,000 unit TID [facility] Administration Propofol 1,000,000 mcg in 100 mls @ 2.507 mls/hr 05/14/18 23:45 05/17/18 22: 00 Diprivan - IVPB 7.97 mcg/kg/min TITR [facility] 4 mls/hr Administration Protocol 5 MCG/KG/MIN Piperacillin Sod/Tazobactam 50 mls @ 100 mls/hr 05/15/18 18:00 05/18/18 09:33 Sod 3.375 gm/ Dextrose IVPB 100 mls/hr Q8H-IV [facility] Administration Protocol Insulin Aspart 1 vial 05/16/18 17:19 05/18/18 16:31 Novolog Vial Sliding Scale - SQ Not Given ACHS [facility] Protocol Insulin Detemir 12 units 05/16/18 12:45 05/18/18 09:34 Levemir Vial SQ 12 units BID [facility] Administration Labetalol HCl 200 mg/ 300 mg 05/13/18 14:00 05/18/18 12:59 Labetalol HCl 100 mg PO 300 mg TID [facility] Administration Levetiracetam 500 mg 05/11/18 22:00 05/18/18 09:33 Keppra Injection - IVPB 500 mg BID [facility] Administration Lisinopril 20 mg 05/13/18 10:00 05/18/18 09:33 Prinivil PO 20 mg DAILY [facility] Administration Ondansetron HCl 4 mg 05/11/18 17:57 11/01/18 19:00 Zofran Injection IVPUSH 4 mg Q6H PRN Administration NAUSEA AND/OR VOMITING Pantoprazole Sodium 40 mg 05/12/18 10:00 05/18/18 09:33 Protonix Iv IVPUSH 40 mg DAILY [facility] Administration Impression 1. QI 2. hypernatremia 3. hemorrhagic CVA 4. DM 5. a-fib 6. Acute Respiratory Failure 7. s/p Left frontal craniotomy, excision of thalamic hermorrhagic mass Plan - d/c fluids - replace free water with feeds, increase flushes to 100 cc per hour - spoke to ICU team - cont to monitor sodium - will need better glucose control - renal function is improving Dr Davies
[2018-05-18] MEDS ORDERED: VANCOMYCIN 1 GRAM (PRE-DOCKED) 1,000 MG/250 ML BAG IVPB ONE (17:15)
--- NOTE | 2018-05-18 18:45 | PN ---
Progress Note, Physician Chief Complaint: Intracranial hemorrhage History of Present Illness: On mechanical vent s/p craniotomy - Current Medication List Current Medications: Active Medications Acetaminophen (Tylenol -) 650 mg PO Q6H PRN PRN Reason: FEVER Last Admin: 05/18/18 11:04 Dose: 650 mg Amlodipine Besylate (Norvasc -) 10 mg PO DAILY [facility] Last Admin: 05/18/18 09:33 Dose: 10 mg Aspirin (Ecotrin -) 81 mg PO DAILY [facility] Last Admin: 05/18/18 09:33 Dose: 81 mg Atorvastatin Calcium (Lipitor -) 80 mg PO HS [facility] Last Admin: 05/17/18 21:52 Dose: 80 mg Dexamethasone (Decadron -) 2 mg NGT Q8H-IV [facility] Last Admin: 05/18/18 17:11 Dose: 2 mg Docusate Sodium (Colace -) 100 mg PO TID [facility] Last Admin: 05/18/18 16:12 Dose: Not Given Fentanyl (Sublimaze Injection -) 50 mcg IVPUSH [id number] PRN PRN Reason: PAIN-PACU ORDER X 4 DOSES ONLY Last Admin: 05/11/18 20:55 Dose: 50 mcg Heparin Sodium (Porcine) (Heparin -) 5,000 unit SQ TID [facility] Last Admin: 05/18/18 12:59 Dose: 5,000 unit Propofol (Diprivan -) 1,000,000 mcg in 100 mls @ 2.507 mls/hr IVPB TITR [facility]; Protocol Last Admin: 05/17/18 22:00 Dose: 7.97 mcg/kg/min, 4 mls/hr Piperacillin Sod/Tazobactam (Sod 3.375 gm/ Dextrose) 50 mls @ 100 mls/hr IVPB Q8H-IV [facility]; Protocol Last Admin: 05/18/18 17:10 Dose: 100 mls/hr Insulin Aspart (Novolog Vial Sliding Scale -) 1 vial SQ ACHS [facility]; Protocol Last Admin: 05/18/18 16:31 Dose: Not Given Insulin Detemir (Levemir Vial) 12 units SQ BID [facility] Last Admin: 05/18/18 09:34 Dose: 12 units Labetalol HCl 200 mg/ (Labetalol HCl 100 mg) 300 mg PO TID [facility] Last Admin: 05/18/18 12:59 Dose: 300 mg Levetiracetam (Keppra Injection -) 500 mg IVPB BID [facility] Last Admin: 05/18/18 09:33 Dose: 500 mg Lisinopril (Prinivil) 20 mg PO DAILY [facility] Last Admin: 05/18/18 09:33 Dose: 20 mg Ondansetron HCl (Zofran Injection) 4 mg IVPUSH Q6H PRN PRN Reason: NAUSEA AND/OR VOMITING Last Admin: 05/11/18 19:00 Dose: 4 mg Pantoprazole Sodium (Protonix Iv) 40 mg IVPUSH DAILY [facility] Last Admin: 05/18/18 09:33 Dose: 40 mg - Objective Vital Signs: Vital Signs Temperature 98.9 F 05/18/18 13:18 Pulse Rate 84 05/18/18 18:00 Respiratory Rate 22 H 05/18/18 18:00 Blood Pressure 149/81 05/18/18 18:00 O2 Sat by Pulse Oximetry (%) 94 L 05/18/18 09:09 Labs: CBC, BMP 05/18/18 05:30 05/18/18 05:30 INR, PTT INR 1.06 (0.83-1.09) 05/10/18 16:15
[2018-05-18] MEDS: ATORVASTATIN CA 80 MG TABLET (FP) PO SCH (21:39)
[2018-05-19] MEDS: PROPOFOL 1,000,000 MCG/100 ML VIAL IVPB SCH (01:27)
[2018-05-19] MEDS ORDERED: PT OWN MED DRAWER 7, Y5N ONE (02:05)
[2018-05-19] MEDS ORDERED: DEXTROSE 5%-WATER - 50 ML IVPB ONE ×3 (02:20→17:14)
[2018-05-19] MEDS ORDERED: PIPERACILLIN/TAZOBACTAM 3.375 GM VIAL IVPB ONE ×3 (02:20→17:14)
[2018-05-19] MEDS: DEXAMETHASONE 4 MG TABLET (FP) NGT SCH ×3 (02:21→21:30)
[2018-05-19] MEDS: PIPERACILLIN/TAZOB 3.375 GM 3.375 GM in DEXTROSE 5%-WATER - 50 ML IVPB SCH ×3 (02:21→17:21)
[2018-05-19] MEDS ORDERED: INSULIN (NOVOLOG) ASPART 100 UNITS/ML 10ML VIAL SQ ONE ×2 (02:33→04:06)
[2018-05-19 06:04] LABS: BASO % 0.1 % (0-2.0); HEMATOCRIT 30.7 % (35.4-49); LYMPH % 8.1 % (8-40); MCH 27.8 pg (25.7-33.7); MCHC 32.6 g/dl (32.0-35.9); MEAN CELL VOLUME 85.3 fl (80-96); MEAN PLT VOLUME 10.8 fl (7.5-11.1); NEUT % 86.8 % (42.8-82.8); PLATELET COUNT 105 K/MM3 (134-434); RDW 13.7 % (11.9-15.9); WHITE BLOOD COUNT 7.4 K/mm3 (4.0-10.0)
[2018-05-19] MEDS ORDERED: LABETALOL HCL 100 MG TABLET (FP) ONE ×3 (06:24→21:17)
[2018-05-19] MEDS ORDERED: LABETALOL HCL 200 MG TABLET (FP) ONE ×3 (06:24→21:17)
[2018-05-19] MEDS: HEPARIN NA (PORCINE) 5,000 UNITS/ML 1ML VIAL SQ SCH ×3 (06:29→21:31)
[2018-05-19] MEDS: LABETALOL HCL 200 MG, LABETALOL HCL 100 MG PO SCH ×3 (06:29→21:30)
[2018-05-19] MEDS: DOCUSATE SODIUM 100 MG CAPSULE (FP) PO SCH ×3 (06:29→21:30)
[2018-05-19 06:42] LABS: ALBUMIN 2.1 g/dl (3.4-5.0); ALK PHOS 127 U/L (45-117); ANION GAP 6 MMOL/L (8-16); BILIRUBIN,TOTAL 0.3 mg/dL (0.2-1); BLOOD UREA NITROGEN 73 mg/dL (7-18); CALCIUM 8.1 mg/dL (8.5-10.1); CHLORIDE 114 mmol/L (98-107); CO2 29 mmol/L (21-32); CREATININE 1.4 mg/dL (0.55-1.3); PHOSPHOROUS 2.6 mg/dL (2.5-4.9); SGOT/AST 18 U/L (15-37); SGPT/ALT 32 U/L (13-61); SODIUM 149 mmol/L (136-145); TOT PROT 5.5 g/dl (6.4-8.2)
[2018-05-19 06:44] LABS: GLUCOSE,RANDOM 407 mg/dL (74-106)
[2018-05-19] MEDS: INSULIN SLIDING SCALE (NOVOLOG) 1 VIAL SQ SCH ×4 (06:54→21:43)
[2018-05-19 06:56] LABS: ARTERIAL BLD GAS O2 SATURATION 96.2 % (90-98.9); ARTERIAL BLOOD GAS BASE EXCESS 3.1 meq/l (-2-2); ARTERIAL BLOOD GAS PCO2 39.2 mmHg (35-45); ARTERIAL BLOOD GAS PO2 83.3 mmHg (80-100); ARTERIAL BLOOD GAS pH 7.45 (7.35-7.45)
[2018-05-19 06:57] LABS: ALLENS TEST POSITIVE
--- NOTE | 2018-05-19 07:31 | PN ---
Progress Note, Physician Chief Complaint: STILL INTUBATED AND SEDTED NO NEW EVENTS IN ICU NOTES REVIEWED - Current Medication List Current Medications: Active Medications Acetaminophen (Tylenol -) 650 mg PO Q6H PRN PRN Reason: FEVER Last Admin: 05/18/18 11:04 Dose: 650 mg Amlodipine Besylate (Norvasc -) 10 mg PO DAILY [facility] Last Admin: 05/18/18 09:33 Dose: 10 mg Aspirin (Ecotrin -) 81 mg PO DAILY [facility] Last Admin: 05/18/18 09:33 Dose: 81 mg Atorvastatin Calcium (Lipitor -) 80 mg PO HS [facility] Last Admin: 05/18/18 21:39 Dose: 80 mg Dexamethasone (Decadron -) 2 mg NGT Q8H-IV [facility] Last Admin: 05/19/18 02:21 Dose: 2 mg Docusate Sodium (Colace -) 100 mg PO TID [facility] Last Admin: 05/19/18 06:29 Dose: 100 mg Heparin Sodium (Porcine) (Heparin -) 5,000 unit SQ TID [facility] Last Admin: 05/19/18 06:29 Dose: 5,000 unit Propofol (Diprivan -) 1,000,000 mcg in 100 mls @ 2.507 mls/hr IVPB TITR [facility]; Protocol Last Admin: 05/19/18 01:27 Dose: Not Given Piperacillin Sod/Tazobactam (Sod 3.375 gm/ Dextrose) 50 mls @ 100 mls/hr IVPB Q8H-IV [facility]; Protocol Last Admin: 05/19/18 02:21 Dose: 100 mls/hr Insulin Aspart (Novolog Vial Sliding Scale -) 1 vial SQ ACHS [facility]; Protocol Last Admin: 05/19/18 06:54 Dose: 7 units Insulin Detemir (Levemir Vial) 12 units SQ BID [facility] Last Admin: 05/18/18 22:35 Dose: 12 units Labetalol HCl 200 mg/ (Labetalol HCl 100 mg) 300 mg PO TID [facility] Last Admin: 05/19/18 06:29 Dose: 300 mg Levetiracetam (Keppra Injection -) 500 mg IVPB BID [facility] Last Admin: 05/18/18 21:38 Dose: 500 mg Lisinopril (Prinivil) 20 mg PO DAILY [facility] Last Admin: 05/18/18 09:33 Dose: 20 mg Ondansetron HCl (Zofran Injection) 4 mg IVPUSH Q6H PRN PRN Reason: NAUSEA AND/OR VOMITING Last Admin: 05/11/18 19:00 Dose: 4 mg Pantoprazole Sodium (Protonix Iv) 40 mg IVPUSH DAILY [facility] Last Admin: 05/18/18 09:33 Dose: 40 mg - Objective Vital Signs: Vital Signs Temperature 97.9 F 05/19/18 06:00 Pulse Rate 93 H 05/19/18 06:00 Respiratory Rate 18 05/19/18 06:41 Blood Pressure 138/80 05/19/18 06:00 O2 Sat by Pulse Oximetry (%) 95 05/18/18 21:00 Constitutional: Yes: No Distress Cardiovascular: Yes: Regular Rate and Rhythm Respiratory: Yes: Mechanically Ventilated Gastrointestinal: Yes: Normal Bowel Sounds, Soft Genitourinary: Yes: Smith Present Musculoskeletal: Yes: Muscle Weakness Edema: Yes Edema: LLE: Trace, RLE: Trace Peripheral Pulses WNL: Yes Wound/Incision: Yes: Dressing Dry and Intact Neurological: Yes: Weakness, Other ...Motor Strength: LLE, RLE Psychiatric: Yes: Other Labs: CBC, BMP 05/19/18 05:30 05/19/18 05:30 INR, PTT INR 1.06 (0.83-1.09) 05/10/18 16:15 Problem List - Problems (1) Diabetes Code(s): E11.9 - TYPE 2 DIABETES MELLITUS WITHOUT COMPLICATIONS (2) Fall Code(s): W19.XXXA - UNSPECIFIED FALL, INITIAL ENCOUNTER Qualifiers: Encounter type: initial encounter Qualified Code(s): W19.XXXA - Unspecified fall, initial encounter (3) HTN (hypertension) Code(s): I10 - ESSENTIAL (PRIMARY) HYPERTENSION (4) Intracranial bleed Code(s): I62.9 - NONTRAUMATIC INTRACRANIAL HEMORRHAGE, UNSPECIFIED (5) Respiratory failure Code(s): J96.90 - RESPIRATORY FAILURE, UNSP, UNSP W HYPOXIA OR HYPERCAPNIA (6) S/P craniotomy Code(s): Z98.890 - OTHER SPECIFIED POSTPROCEDURAL STATES Assessment/Plan S/P CRANIOTOMY THALAMIC MASS, ICH POD#8 SEDATED AND INTUBATED ON VENT SUPPORT ONCE STABLE PRESSURES CAN TRY WEANING OFF OF VENT DVT PROPHYLAXIS IV ZOSYN MONITOR LABS NEUROLOGY/PULM F/U NEUROSURGERY CONSULT APPRECIATED
[2018-05-19] MEDS ORDERED: fentaNYL CITRATE 250 MCG/5 ML VIAL ONE ×2 (08:38→19:10)
[2018-05-19] MEDS: PANTOPRAZOLE SODIUM 40 MG VIAL IVPUSH SCH (10:03)
[2018-05-19] MEDS: levETIRAcetam 500 MG/5 ML INJECTION VIAL IVPB SCH ×2 (10:03→21:30)
[2018-05-19] MEDS: ASPIRIN COATED 81 MG TABLET.EC PO SCH (10:03)
[2018-05-19] MEDS: LISINOPRIL 20 MG TABLET (FP) PO SCH (10:04)
[2018-05-19] MEDS: FENTANYL INJECTION 500 MCG in DEXTROSE 5%-WATER - 90 ML IVPB SCH ×2 (10:04→19:41)
[2018-05-19] MEDS: amLODIPine BESYLATE 10 MG TABLET (FP) PO SCH (10:04)
[2018-05-19] MEDS: INSULIN (LEVEMIR) 100 UNITS/ML UNITS SQ SCH (10:05)
--- NOTE | 2018-05-19 10:59 | PN ---
Progress Note, Physician History of Present Illness: Remains intubated Afebrile WBC WNL Sputum c/s mixed, including MRSA Cr improved 1.4 Vanco T 13.5 Urine pneumococcal ag + - Current Medication List Current Medications: Active Medications Acetaminophen (Tylenol -) 650 mg PO Q6H PRN PRN Reason: FEVER Last Admin: 05/18/18 11:04 Dose: 650 mg Amlodipine Besylate (Norvasc -) 10 mg PO DAILY [facility] Last Admin: 05/19/18 10:04 Dose: 10 mg Aspirin (Ecotrin -) 81 mg PO DAILY [facility] Last Admin: 05/19/18 10:03 Dose: 81 mg Atorvastatin Calcium (Lipitor -) 80 mg PO HS [facility] Last Admin: 05/18/18 21:39 Dose: 80 mg Dexamethasone (Decadron -) 2 mg NGT Q8H-IV [facility] Last Admin: 05/19/18 10:04 Dose: 2 mg Docusate Sodium (Colace -) 100 mg PO TID [facility] Last Admin: 05/19/18 06:29 Dose: 100 mg Heparin Sodium (Porcine) (Heparin -) 5,000 unit SQ TID [facility] Last Admin: 05/19/18 06:29 Dose: 5,000 unit Propofol (Diprivan -) 1,000,000 mcg in 100 mls @ 2.507 mls/hr IVPB TITR [facility]; Protocol Last Admin: 05/19/18 01:27 Dose: Not Given Piperacillin Sod/Tazobactam (Sod 3.375 gm/ Dextrose) 50 mls @ 100 mls/hr IVPB Q8H-IV [facility]; Protocol Last Admin: 05/19/18 10:03 Dose: 100 mls/hr Fentanyl 500 mcg/ Dextrose 100 mls @ 10 mls/hr IVPB TITR [facility]; Protocol Stop: 05/20/18 08:29 Last Admin: 05/19/18 10:04 Dose: 50 mcg/hr, 10 mls/hr Insulin Aspart (Novolog Vial Sliding Scale -) 1 vial SQ ACHS [facility]; Protocol Last Admin: 05/19/18 06:54 Dose: 7 units Insulin Detemir (Levemir Vial) 12 units SQ BID [facility] Last Admin: 05/19/18 10:05 Dose: 12 units Labetalol HCl 200 mg/ (Labetalol HCl 100 mg) 300 mg PO TID [facility] Last Admin: 05/19/18 06:29 Dose: 300 mg Levetiracetam (Keppra Injection -) 500 mg IVPB BID [facility] Last Admin: 05/19/18 10:03 Dose: 500 mg Lisinopril (Prinivil) 20 mg PO DAILY [facility] Last Admin: 05/19/18 10:04 Dose: 20 mg Ondansetron HCl (Zofran Injection) 4 mg IVPUSH Q6H PRN PRN Reason: NAUSEA AND/OR VOMITING Last Admin: 05/11/18 19:00 Dose: 4 mg Pantoprazole Sodium (Protonix Iv) 40 mg IVPUSH DAILY [facility] Last Admin: 05/19/18 10:03 Dose: 40 mg - Objective Vital Signs: Vital Signs Temperature 97.9 F 05/19/18 06:00 Pulse Rate 93 H 05/19/18 06:00 Respiratory Rate 37 H 05/19/18 08:00 Blood Pressure 138/80 05/19/18 06:00 O2 Sat by Pulse Oximetry (%) 95 05/18/18 21:00 Constitutional: Yes: No Distress Cardiovascular: Yes: Regular Rate and Rhythm, S1, S2 Respiratory: Yes: Mechanically Ventilated Gastrointestinal: Yes: Normal Bowel Sounds, Soft. No: Tenderness Edema: No Labs: CBC, BMP 05/19/18 05:30 05/19/18 05:30 INR, PTT INR 1.06 (0.83-1.09) 05/10/18 16:15 Assessment/Plan LLL pneumonia + sputum c/s MRSA/ mixed + pneumococcal ag Respiratory failure S/P craniotomy POD # 8 S/A AVR Azotemia improved Uncontrolled DM Continue zosyn/ vancomycin Contact precautions MRSA
[2018-05-19] MEDS: VANCOMYCIN 1 GRAM (PRE-DOCKED) 1,000 MG/250 ML BAG IVPB SCH (12:42)
--- NOTE | 2018-05-19 12:46 | PN ---
Teaching Attending Note Name of Resident: Can Ledbetter ATTENDING PHYSICIAN STATEMENT I saw and evaluated the patient. I reviewed the resident's note and discussed the case with the resident. I agree with the resident's findings and plan as documented. SUBJECTIVE: Patient seen and examined at bedside. Remains intubated and sedated. AC Mode of vent. No pressors. Mental status waxing and waning. Not able to follow commands. CXR: Bilateral pulmonary vascular congestion. OBJECTIVE: Intake & Output 05/16/18 05/17/18 05/18/18 05/19/18 23:59 23:59 23:59 23:59 Intake Total 1460 4988 4275.8 1164.4 Output Total 2450 2450 2850 1050 Balance -990 2538 1425.8 114.4 Weight 175 lb 4.8 oz 175 lb 4.8 oz 179 lb 12.8 oz 170 lb 7 oz Last Vital Signs Temp Pulse Resp BP Pulse Ox 97.9 F 93 H 22 H 138/80 95 05/19/18 06:00 05/19/18 06:00 05/19/18 11:21 05/19/18 06:00 05/18/18 21:00 Active Medications Acetaminophen (Tylenol -) 650 mg PO Q6H PRN PRN Reason: FEVER Last Admin: 05/18/18 11:04 Dose: 650 mg Amlodipine Besylate (Norvasc -) 10 mg PO DAILY [facility] Last Admin: 05/19/18 10:04 Dose: 10 mg Aspirin (Ecotrin -) 81 mg PO DAILY [facility] Last Admin: 05/19/18 10:03 Dose: 81 mg Atorvastatin Calcium (Lipitor -) 80 mg PO HS [facility] Last Admin: 05/18/18 21:39 Dose: 80 mg Dexamethasone (Decadron -) 2 mg NGT Q8H-IV [facility] Last Admin: 05/19/18 10:04 Dose: 2 mg Docusate Sodium (Colace -) 100 mg PO TID [facility] Last Admin: 05/19/18 06:29 Dose: 100 mg Heparin Sodium (Porcine) (Heparin -) 5,000 unit SQ TID [facility] Last Admin: 05/19/18 06:29 Dose: 5,000 unit Propofol (Diprivan -) 1,000,000 mcg in 100 mls @ 2.507 mls/hr IVPB TITR [facility]; Protocol Last Admin: 05/19/18 01:27 Dose: Not Given Piperacillin Sod/Tazobactam (Sod 3.375 gm/ Dextrose) 50 mls @ 100 mls/hr IVPB Q8H-IV [facility]; Protocol Last Admin: 05/19/18 10:03 Dose: 100 mls/hr Fentanyl 500 mcg/ Dextrose 100 mls @ 10 mls/hr IVPB TITR [facility]; Protocol Stop: 05/20/18 08:29 Last Admin: 05/19/18 10:04 Dose: 50 mcg/hr, 10 mls/hr Vancomycin HCl (Vancomycin (Pre-Docked)) 1,000 mg in 250 mls @ 200 mls/hr IVPB Q24H [facility]; Protocol Last Admin: 05/19/18 12:42 Dose: 200 mls/hr Insulin Aspart (Novolog Vial Sliding Scale -) 1 vial SQ ACHS [facility]; Protocol Last Admin: 05/19/18 12:06 Dose: Not Given Insulin Detemir (Levemir Vial) 12 units SQ BID [facility] Last Admin: 05/19/18 10:05 Dose: 12 units Labetalol HCl 200 mg/ (Labetalol HCl 100 mg) 300 mg PO TID [facility] Last Admin: 05/19/18 06:29 Dose: 300 mg Levetiracetam (Keppra Injection -) 500 mg IVPB BID [facility] Last Admin: 05/19/18 10:03 Dose: 500 mg Lisinopril (Prinivil) 20 mg PO DAILY [facility] Last Admin: 05/19/18 10:04 Dose: 20 mg Ondansetron HCl (Zofran Injection) 4 mg IVPUSH Q6H PRN PRN Reason: NAUSEA AND/OR VOMITING Last Admin: 05/11/18 19:00 Dose: 4 mg Pantoprazole Sodium (Protonix Iv) 40 mg IVPUSH DAILY [facility] Last Admin: 05/19/18 10:03 Dose: 40 mg GENERAL: Intubated and sedated EYES: PERRL, sclera anicteric, conjunctiva clear. ENT: moist mucous membranes. NECK: Trachea midline. LUNGS: Vented, coarse breath sounds Left > Right, no wheezes. HEART: Regular rate and rhythm, S1, S2 without murmur, rub or gallop. ABDOMEN: Soft, nontender, nondistended, normoactive bowel sounds, no guarding, no rebound, no hepatosplenomegaly, no masses. EXTREMITIES: 2+ pulses, warm, well-perfused, no edema. NEUROLOGICAL: sedated PSYCH: sedated SKIN: Warm, dry, normal turgor, no rashes or lesions noted Laboratory Results - last 24 hr 05/18/18 05/18/18 05/18/18 11:21 16:18 22:27 WBC RBC Hgb Hct MCV MCH MCHC RDW Plt Count MPV Absolute Neuts (auto) Neutrophils % Lymphocytes % Monocytes % Eosinophils % Basophils % Nucleated RBC % Puncture Site ABG pH ABG pCO2 at Pt Temp ABG pO2 at Pt Temp ABG HCO3 ABG O2 Sat (Measured) ABG O2 Content ABG Base Excess Oziel Test O2 Delivery Device Oxygen Flow Rate Vent Rate PEEP Pressure Support Vent Sodium Potassium Chloride Carbon Dioxide Anion Gap BUN Creatinine Creat Clearance w eGFR POC Glucometer 57.53589 53.20352 > 400 Random Glucose Hemoglobin A1c % Lactic Acid Calcium Phosphorus Magnesium Total Bilirubin AST ALT Alkaline Phosphatase Total Protein Albumin Random Vancomycin 05/18/18 05/18/18 05/19/18 22:28 22:30 02:29 WBC RBC Hgb Hct MCV MCH MCHC RDW Plt Count MPV Absolute Neuts (auto) Neutrophils % Lymphocytes % Monocytes % Eosinophils % Basophils % Nucleated RBC % Puncture Site ABG pH ABG pCO2 at Pt Temp ABG pO2 at Pt Temp ABG HCO3 ABG O2 Sat (Measured) ABG O2 Content ABG Base Excess Oziel Test O2 Delivery Device Oxygen Flow Rate Vent Rate PEEP Pressure Support Vent Sodium Potassium Chloride Carbon Dioxide Anion Gap BUN Creatinine Creat Clearance w eGFR POC Glucometer > 400 > 400 Random Glucose 495 H* Hemoglobin A1c % Lactic Acid Calcium Phosphorus Magnesium Total Bilirubin AST ALT Alkaline Phosphatase Total Protein Albumin Random Vancomycin 05/19/18 05/19/18 05/19/18 03:58 05:30 05:30 WBC 7.4 RBC 3.60 L Hgb 10.0 L Hct 30.7 L MCV 85.3 MCH 27.8 MCHC 32.6 RDW 13.7 Plt Count 105 L MPV 10.8 Absolute Neuts (auto) 6.4 Neutrophils % 86.8 H Lymphocytes % 8.1 D Monocytes % 5.0 Eosinophils % 0.0 Basophils % 0.1 Nucleated RBC % 0 Puncture Site ABG pH ABG pCO2 at Pt Temp ABG pO2 at Pt Temp ABG HCO3 ABG O2 Sat (Measured) ABG O2 Content ABG Base Excess Oziel Test O2 Delivery Device Oxygen Flow Rate Vent Rate PEEP Pressure Support Vent Sodium Potassium Chloride Carbon Dioxide Anion Gap BUN Creatinine Creat Clearance w eGFR POC Glucometer 381.98643 Random Glucose Hemoglobin A1c % Lactic Acid Calcium Phosphorus Magnesium Total Bilirubin AST ALT Alkaline Phosphatase Total Protein Albumin Random Vancomycin 13.53 05/19/18 05/19/18 05/19/18 05:30 05:30 06:00 WBC RBC Hgb Hct MCV MCH MCHC RDW Plt Count MPV Absolute Neuts (auto) Neutrophils % Lymphocytes % Monocytes % Eosinophils % Basophils % Nucleated RBC % Puncture Site Right radial ABG pH 7.45 ABG pCO2 at Pt Temp 39.2 ABG pO2 at Pt Temp 83.3 ABG HCO3 26.8 H ABG O2 Sat (Measured) 96.2 ABG O2 Content 13.2 L ABG Base Excess 3.1 H Oziel Test Positive O2 Delivery Device Vent Oxygen Flow Rate 40 Vent Rate 16 PEEP 5.0 Pressure Support Vent 450 Sodium 149 H Potassium 5.0 Chloride 114 H Carbon Dioxide 29 Anion Gap 6 L BUN 73 H Creatinine 1.4 H Creat Clearance w eGFR 50.55 POC Glucometer Random Glucose 407 H* Hemoglobin A1c % Lactic Acid 2.1 H Calcium 8.1 L Phosphorus 2.6 Magnesium 3.0 H Total Bilirubin 0.3 AST 18 ALT 32 Alkaline Phosphatase 127 H Total Protein 5.5 L Albumin 2.1 L Random Vancomycin 05/19/18 05/19/18 06:40 07:30 WBC RBC Hgb Hct MCV MCH MCHC RDW Plt Count MPV Absolute Neuts (auto) Neutrophils % Lymphocytes % Monocytes % Eosinophils % Basophils % Nucleated RBC % Puncture Site ABG pH ABG pCO2 at Pt Temp ABG pO2 at Pt Temp ABG HCO3 ABG O2 Sat (Measured) ABG O2 Content ABG Base Excess Oziel Test O2 Delivery Device Oxygen Flow Rate Vent Rate PEEP Pressure Support Vent Sodium Potassium Chloride Carbon Dioxide Anion Gap BUN Creatinine Creat Clearance w eGFR POC Glucometer 299.91484 Random Glucose Hemoglobin A1c % 7.8 H Lactic Acid Calcium Phosphorus Magnesium Total Bilirubin AST ALT Alkaline Phosphatase Total Protein Albumin Random Vancomycin ASSESSMENT/PLAN: Acute Respiratory Failure (3rd intubation) POD#7 Left frontal craniotomy, excision of thalamic hermorrhagic mass AFIB Recent hemorrhagic CVA DM Sedation vacation to assess mental status Enteral feeds BP control Wean FiO2 Monitor off IVF ABX coverage Monitor CXR Keppra Head of bed: 30 degrees. PPI Wean Decadron May need Trach ICU monitoring Dr Gatica Critical Care patient: Yes Total Critical Care Time (in minutes): 36 Critical Care Statement: The care of this patient involved high complexity decision making to prevent further life threatening deterioration of the patient 's condition and/or to evaluate & treat vital organ system(s) failure or risk of failure.
[2018-05-19] MEDS ORDERED: INSULIN REGULAR 100 UNITS in SODIUM CHLORIDE 99 ML IVPB SCH ×2 (13:30→16:45)
--- NOTE | 2018-05-19 15:12 | PN ---
Physical Exam: SUBJECTIVE: Patient seen and examined at bedside. He remains intubated. We stopped his sedation at 6 AM this morning to assess his mental status. After 2 hours without sedation his mental status is questionable. He does not turn to command. He does not squeeze his hand or move his toes on cammand. He does not blink on command. Overnight the patient experienced significant hyperglycemia overnight. Yesterday his glucose dropped to the 50s for a few hours. After a shot of D50 his glucose elevated to the 400's. Both myself and Dr. Taveras spoke with the patient's sister at length today updating her on the situation and discussing possible treatments moving forward including a tracheosotmy. At this point she wants to avoid the tracheostomy and see if he can pull through without any breathing support. OBJECTIVE: Vital Signs Period Temp Pulse Resp BP Sys/Goel Pulse Ox Last 24 Hr 97.4 F-98.1 F 80-99 18-37 129-158/64-87 95 GENERAL: The patient is awake, not alert, and not oriented. HEAD: Surgical head dressing. No erythematous areas. EYES: PERRL, sclera anicteric, conjunctiva clear. ENT: Ears normal, nares patent, moist mucous membranes. NECK: Trachea midline. LUNGS: Coarse breath sounds bilaterally. no crackles. HEART: Regular rate and irregular rhythm, S1, S2 without murmur, rub or gallop. ABDOMEN: Soft, nondistended, normoactive bowel sounds. EXTREMITIES: 2+ pulses, warm, well-perfused, no edema. NEUROLOGICAL: Pupils equal and reactive. + gag reflex. Patient blinks with stimuli. Tough to assess further. PSYCH: Poor eye contact. SKIN: Warm, dry, normal turgor, no rashes or lesions noted Laboratory Results - last 24 hr 05/18/18 05/18/18 05/18/18 11:21 16:18 22:27 WBC RBC Hgb Hct MCV MCH MCHC RDW Plt Count MPV Absolute Neuts (auto) Neutrophils % Lymphocytes % Monocytes % Eosinophils % Basophils % Nucleated RBC % Puncture Site ABG pH ABG pCO2 at Pt Temp ABG pO2 at Pt Temp ABG HCO3 ABG O2 Sat (Measured) ABG O2 Content ABG Base Excess Oziel Test O2 Delivery Device Oxygen Flow Rate Vent Rate PEEP Pressure Support Vent Sodium Potassium Chloride Carbon Dioxide Anion Gap BUN Creatinine Creat Clearance w eGFR POC Glucometer 57.73679 53.86075 > 400 Random Glucose Hemoglobin A1c % Lactic Acid Calcium Phosphorus Magnesium Total Bilirubin AST ALT Alkaline Phosphatase Total Protein Albumin Random Vancomycin 05/18/18 05/18/18 05/19/18 22:28 22:30 02:29 WBC RBC Hgb Hct MCV MCH MCHC RDW Plt Count MPV Absolute Neuts (auto) Neutrophils % Lymphocytes % Monocytes % Eosinophils % Basophils % Nucleated RBC % Puncture Site ABG pH ABG pCO2 at Pt Temp ABG pO2 at Pt Temp ABG HCO3 ABG O2 Sat (Measured) ABG O2 Content ABG Base Excess Oziel Test O2 Delivery Device Oxygen Flow Rate Vent Rate PEEP Pressure Support Vent Sodium Potassium Chloride Carbon Dioxide Anion Gap BUN Creatinine Creat Clearance w eGFR POC Glucometer > 400 > 400 Random Glucose 495 H* Hemoglobin A1c % Lactic Acid Calcium Phosphorus Magnesium Total Bilirubin AST ALT Alkaline Phosphatase Total Protein Albumin Random Vancomycin 05/19/18 05/19/18 05/19/18 03:58 05:30 05:30 WBC 7.4 RBC 3.60 L Hgb 10.0 L Hct 30.7 L MCV 85.3 MCH 27.8 MCHC 32.6 RDW 13.7 Plt Count 105 L MPV 10.8 Absolute Neuts (auto) 6.4 Neutrophils % 86.8 H Lymphocytes % 8.1 D Monocytes % 5.0 Eosinophils % 0.0 Basophils % 0.1 Nucleated RBC % 0 Puncture Site ABG pH ABG pCO2 at Pt Temp ABG pO2 at Pt Temp ABG HCO3 ABG O2 Sat (Measured) ABG O2 Content ABG Base Excess Oziel Test O2 Delivery Device Oxygen Flow Rate Vent Rate PEEP Pressure Support Vent Sodium Potassium Chloride Carbon Dioxide Anion Gap BUN Creatinine Creat Clearance w eGFR POC Glucometer 381.75535 Random Glucose Hemoglobin A1c % Lactic Acid Calcium Phosphorus Magnesium Total Bilirubin AST ALT Alkaline Phosphatase Total Protein Albumin Random Vancomycin 13.53 05/19/18 05/19/18 05/19/18 05:30 05:30 06:00 WBC RBC Hgb Hct MCV MCH MCHC RDW Plt Count MPV Absolute Neuts (auto) Neutrophils % Lymphocytes % Monocytes % Eosinophils % Basophils % Nucleated RBC % Puncture Site Right radial ABG pH 7.45 ABG pCO2 at Pt Temp 39.2 ABG pO2 at Pt Temp 83.3 ABG HCO3 26.8 H ABG O2 Sat (Measured) 96.2 ABG O2 Content 13.2 L ABG Base Excess 3.1 H Oziel Test Positive O2 Delivery Device Vent Oxygen Flow Rate 40 Vent Rate 16 PEEP 5.0 Pressure Support Vent 450 Sodium 149 H Potassium 5.0 Chloride 114 H Carbon Dioxide 29 Anion Gap 6 L BUN 73 H Creatinine 1.4 H Creat Clearance w eGFR 50.55 POC Glucometer Random Glucose 407 H* Hemoglobin A1c % Lactic Acid 2.1 H Calcium 8.1 L Phosphorus 2.6 Magnesium 3.0 H Total Bilirubin 0.3 AST 18 ALT 32 Alkaline Phosphatase 127 H Total Protein 5.5 L Albumin 2.1 L Random Vancomycin 05/19/18 05/19/18 06:40 07:30 WBC RBC Hgb Hct MCV MCH MCHC RDW Plt Count MPV Absolute Neuts (auto) Neutrophils % Lymphocytes % Monocytes % Eosinophils % Basophils % Nucleated RBC % Puncture Site ABG pH ABG pCO2 at Pt Temp ABG pO2 at Pt Temp ABG HCO3 ABG O2 Sat (Measured) ABG O2 Content ABG Base Excess Oziel Test O2 Delivery Device Oxygen Flow Rate Vent Rate PEEP Pressure Support Vent Sodium Potassium Chloride Carbon Dioxide Anion Gap BUN Creatinine Creat Clearance w eGFR POC Glucometer 299.75299 Random Glucose Hemoglobin A1c % 7.8 H Lactic Acid Calcium Phosphorus Magnesium Total Bilirubin AST ALT Alkaline Phosphatase Total Protein Albumin Random Vancomycin Active Medications Generic Name Dose Route Start Last Admin Trade Name Freq PRN Reason Stop Dose Admin Acetaminophen 650 mg 05/13/18 10:24 05/18/18 11:04 Tylenol - PO 650 mg Q6H PRN Administration FEVER Amlodipine Besylate 10 mg 05/13/18 10:00 05/19/18 10:04 Norvasc - PO 10 mg DAILY [facility] Administration Aspirin 81 mg 05/15/18 10:00 05/19/18 10:03 Ecotrin - PO 81 mg DAILY [facility] Administration Atorvastatin Calcium 80 mg 05/13/18 22:00 05/18/18 21:39 Lipitor - PO 80 mg HS [facility] Administration Dexamethasone 2 mg 05/19/18 22:00 Decadron - NGT BID [facility] Docusate Sodium 100 mg 05/11/18 22:00 05/19/18 06:29 Colace - PO 100 mg TID [facility] Administration Heparin Sodium (Porcine) 5,000 unit 05/19/18 06:00 05/19/18 06:29 Heparin - SQ 5,000 unit TID [facility] Administration Propofol 1,000,000 mcg in 100 mls @ 2.507 mls/hr 05/14/18 23:45 05/19/18 01: 27 Diprivan - IVPB Not Given TITR [facility] Protocol 5 MCG/KG/MIN Piperacillin Sod/Tazobactam 50 mls @ 100 mls/hr 05/15/18 18:00 05/19/18 10:03 Sod 3.375 gm/ Dextrose IVPB 100 mls/hr Q8H-IV [facility] Administration Protocol Fentanyl 500 mcg/ Dextrose 100 mls @ 10 mls/hr 05/19/18 08:30 05/19/18 10:04 IVPB 05/20/18 08:29 50 mcg/hr TITR [facility] 10 mls/hr Administration Protocol 50 MCG/HR Vancomycin HCl 1,000 mg in 250 mls @ 200 mls/hr 05/19/18 11:30 05/19/18 12:42 Vancomycin (Pre-Docked) IVPB 200 mls/hr Q24H [facility] Administration Protocol Insulin Human Regular 100 100 mls @ 7.73 mls/hr 05/19/18 13:30 units/ Sodium Chloride IVPB TITR [facility] Protocol 0.1 UNITS/KG/HR Labetalol HCl 200 mg/ 300 mg 05/13/18 14:00 05/19/18 06:29 Labetalol HCl 100 mg PO 300 mg TID [facility] Administration Levetiracetam 500 mg 05/11/18 22:00 05/19/18 10:03 Keppra Injection - IVPB 500 mg BID [facility] Administration Lisinopril 20 mg 05/13/18 10:00 05/19/18 10:04 Prinivil PO 20 mg DAILY [facility] Administration Ondansetron HCl 4 mg 05/11/18 17:57 05/11/18 19:00 Zofran Injection IVPUSH 4 mg Q6H PRN Administration NAUSEA AND/OR VOMITING Pantoprazole Sodium 40 mg 05/12/18 10:00 05/19/18 10:03 Protonix Iv IVPUSH 40 mg DAILY [facility] Administration ASSESSMENT/PLAN: Assessment: 67 yo M w a hx of AFIB, recent hemorrhagic CVA, T2DM is here s/p Left frontal craniotomy and blood clot removal after being operated on by Dr. Taveras. There are X-ray changes which suggest an infiltrate or atelectasis in the left base. Of note, Yesterday his glucose dropped into the 50s. He was given a shot of D50 and his glucose was in the 400s overnight. We will try to titrate his insulin for better control. If the glucose cannot be managed better we will put the patient on an insulin drip. QI improving. BUN today - 73, Cr 1.4. We have tapered his decadron to 2 Q 12 Plan: Nephro: - QI - likely Pre-renal injury. Improving. - Kidney US showed no hydronephrosis or stones b/l - Urine lites support pre-renal injury. - Nephro Consulted and recommends hypotonic fluids. Cardio: - Strict BP control with systolic < 130 - Lebatalol for elevated BP or rate control PRN ID: - ID consulted - PNA: Abx for HCAP vs aspiration. - Positive Strep pneumo in the urine. - Positive MRSA in sputum - Positive E fecalis in urine - Vanc and zosyn being given - Contact precautions Pulm: - Intubated - ABG BID - Try to wean from vent Daily Neuro: - Daily sedation vacations to assess mental status - Keppra 500 mg for seizure prohylaxis. - Head of the bead 30 degrees. GI: - Aspiration precautions. - Protonix 40 - Zofran PRN Endo: - Decadron to 2Q12 - Sliding scale - frequent glucose checks Prophylaxis: - Aspiration precautions. - Heparin 5000 TID F/E/N: - tube feeds - glucerna - Replete lytes PRN - No standing fluids today Code Status: - Full code Dispo: - Patient will continue to receive monitoring in the ICU. Visit type - Emergency Visit Emergency Visit: Yes ED Registration Date: 05/10/18 Care time: The patient presented to the Emergency Department on the above date and was hospitalized for further evaluation of their emergent condition. - New Patient This patient is new to me today: No - Critical Care Critical Care patient: Yes Total Critical Care Time (in minutes): 36 Critical Care Statement: The care of this patient involved high complexity decision making to prevent further life threatening deterioration of the patient 's condition and/or to evaluate & treat vital organ system(s) failure or risk of failure.
--- NOTE | 2018-05-19 16:48 | PN ---
Progress Note, Physician History of Present Illness: Pt seen and examined at bedside. He remains in the ICU. PT remains intubated. - Current Medication List Current Medications: Active Medications Acetaminophen (Tylenol -) 650 mg PO Q6H PRN PRN Reason: FEVER Last Admin: 05/18/18 11:04 Dose: 650 mg Amlodipine Besylate (Norvasc -) 10 mg PO DAILY [facility] Last Admin: 05/19/18 10:04 Dose: 10 mg Aspirin (Ecotrin -) 81 mg PO DAILY [facility] Last Admin: 05/19/18 10:03 Dose: 81 mg Atorvastatin Calcium (Lipitor -) 80 mg PO HS [facility] Last Admin: 05/18/18 21:39 Dose: 80 mg Dexamethasone (Decadron -) 2 mg NGT BID [facility] Docusate Sodium (Colace -) 100 mg PO TID [facility] Last Admin: 05/19/18 15:25 Dose: 100 mg Heparin Sodium (Porcine) (Heparin -) 5,000 unit SQ TID [facility] Last Admin: 05/19/18 15:01 Dose: 5,000 unit Propofol (Diprivan -) 1,000,000 mcg in 100 mls @ 2.507 mls/hr IVPB TITR [facility]; Protocol Last Admin: 05/19/18 01:27 Dose: Not Given Piperacillin Sod/Tazobactam (Sod 3.375 gm/ Dextrose) 50 mls @ 100 mls/hr IVPB Q8H-IV [facility]; Protocol Last Admin: 05/19/18 10:03 Dose: 100 mls/hr Fentanyl 500 mcg/ Dextrose 100 mls @ 10 mls/hr IVPB TITR [facility]; Protocol Stop: 05/20/18 08:29 Last Admin: 05/19/18 10:04 Dose: 50 mcg/hr, 10 mls/hr Vancomycin HCl (Vancomycin (Pre-Docked)) 1,000 mg in 250 mls @ 200 mls/hr IVPB Q24H [facility]; Protocol Last Admin: 05/19/18 12:42 Dose: 200 mls/hr Insulin Human Regular 100 (units/ Sodium Chloride) 100 mls @ 7.73 mls/hr IVPB TITR [facility]; Protocol Insulin Aspart (Novolog Vial Sliding Scale -) 1 vial SQ ACHS [facility]; Protocol Insulin Detemir (Levemir Vial) 11 units SQ 0700 [facility] Labetalol HCl 200 mg/ (Labetalol HCl 100 mg) 300 mg PO TID [facility] Last Admin: 05/19/18 15:01 Dose: 300 mg Levetiracetam (Keppra Injection -) 500 mg IVPB BID [facility] Last Admin: 05/19/18 10:03 Dose: 500 mg Lisinopril (Prinivil) 20 mg PO DAILY [facility] Last Admin: 05/19/18 10:04 Dose: 20 mg Ondansetron HCl (Zofran Injection) 4 mg IVPUSH Q6H PRN PRN Reason: NAUSEA AND/OR VOMITING Last Admin: 05/11/18 19:00 Dose: 4 mg Pantoprazole Sodium (Protonix Iv) 40 mg IVPUSH DAILY [facility] Last Admin: 05/19/18 10:03 Dose: 40 mg - Objective Vital Signs: Vital Signs Temperature 97.4 F L 05/19/18 12:00 Pulse Rate 93 H 05/19/18 14:00 Respiratory Rate 17 05/19/18 16:28 Blood Pressure 152/82 05/19/18 14:00 O2 Sat by Pulse Oximetry (%) 95 05/18/18 21:00 Constitutional: Yes: Calm Eyes: Yes: Conjunctiva Clear HENT: Yes: Other (s/p craneotomy) Neck: Yes: Supple Cardiovascular: Yes: S1, S2 Gastrointestinal: Yes: Soft Genitourinary: Yes: Smith Present Edema: No Neurological: Yes: Lethargy Labs: CBC, BMP 05/19/18 05:30 05/19/18 05:30 INR, PTT INR 1.06 (0.83-1.09) 05/10/18 16:15 - ....Imaging Chest X-ray: Report Reviewed Problem List - Problems (1) Hypernatremia Code(s): E87.0 - HYPEROSMOLALITY AND HYPERNATREMIA (2) QI (acute kidney injury) Code(s): N17.9 - ACUTE KIDNEY FAILURE, UNSPECIFIED (3) Diabetes Code(s): E11.9 - TYPE 2 DIABETES MELLITUS WITHOUT COMPLICATIONS Assessment/Plan Current Medications Generic Name Dose Route Start Last Admin Trade Name Freq PRN Reason Stop Dose Admin Acetaminophen 650 mg 05/13/18 10:24 05/18/18 11:04 Tylenol - PO 650 mg Q6H PRN Administration FEVER Amlodipine Besylate 10 mg 05/13/18 10:00 05/19/18 10:04 Norvasc - PO 10 mg DAILY [facility] Administration Aspirin 81 mg 05/15/18 10:00 05/19/18 10:03 Ecotrin - PO 81 mg DAILY [facility] Administration Atorvastatin Calcium 80 mg 05/13/18 22:00 05/18/18 21:39 Lipitor - PO 80 mg HS [facility] Administration Dexamethasone 2 mg 05/19/18 22:00 Decadron - NGT BID [facility] Docusate Sodium 100 mg 05/11/18 22:00 05/19/18 15:25 Colace - PO 100 mg TID [facility] Administration Heparin Sodium (Porcine) 5,000 unit 05/19/18 06:00 05/19/18 15:01 Heparin - SQ 5,000 unit TID [facility] Administration Propofol 1,000,000 mcg in 100 mls @ 2.507 mls/hr 05/14/18 23:45 05/19/18 01: 27 Diprivan - IVPB Not Given TITR [facility] Protocol 5 MCG/KG/MIN Piperacillin Sod/Tazobactam 50 mls @ 100 mls/hr 05/15/18 18:00 05/19/18 10:03 Sod 3.375 gm/ Dextrose IVPB 100 mls/hr Q8H-IV [facility] Administration Protocol Fentanyl 500 mcg/ Dextrose 100 mls @ 10 mls/hr 05/19/18 08:30 05/19/18 10:04 IVPB 05/20/18 08:29 50 mcg/hr TITR [facility] 10 mls/hr Administration Protocol 50 MCG/HR Vancomycin HCl 1,000 mg in 250 mls @ 200 mls/hr 05/19/18 11:30 05/19/18 12:42 Vancomycin (Pre-Docked) IVPB 200 mls/hr Q24H [facility] Administration Protocol Insulin Human Regular 100 100 mls @ 7.73 mls/hr 05/19/18 16:45 units/ Sodium Chloride IVPB TITR [facility] Protocol 0.1 UNITS/KG/HR Insulin Aspart 1 vial 05/19/18 16:30 Novolog Vial Sliding Scale - SQ ACHS [facility] Protocol Insulin Detemir 11 units 05/20/18 07:00 Levemir Vial SQ 0700 [facility] Labetalol HCl 200 mg/ 300 mg 05/13/18 14:00 05/19/18 15:01 Labetalol HCl 100 mg PO 300 mg TID [facility] Administration Levetiracetam 500 mg 05/11/18 22:00 05/19/18 10:03 Keppra Injection - IVPB 500 mg BID [facility] Administration Lisinopril 20 mg 05/13/18 10:00 05/19/18 10:04 Prinivil PO 20 mg DAILY [facility] Administration Ondansetron HCl 4 mg 05/11/18 17:57 05/11/18 19:00 Zofran Injection IVPUSH 4 mg Q6H PRN Administration NAUSEA AND/OR VOMITING Pantoprazole Sodium 40 mg 05/12/18 10:00 05/19/18 10:03 Protonix Iv IVPUSH 40 mg DAILY [facility] Administration Impression 1. QI 2. hypernatremia 3. hemorrhagic CVA 4. DM 5. a-fib 6. Acute Respiratory Failure 7. s/p Left frontal craniotomy, excision of thalamic hermorrhagic mass Plan - cont with free water - blood sugar is not controlled - renal function is improving - discussed with ICU team - cont vent support - steroids may be exacerbating blood sugar Dr Davies
--- NOTE | 2018-05-19 17:05 | PN ---
Progress Note (short form) - Note Progress Note: 67 year old male history of DM, Neuropathy, had recent brain bleed, he also have history of atrial fibrillation. Patient fell out of wheel chair. He has ct scan done showed left basal ganglia bleed and old right parietal lobe infarct. He underwent craniotomy by Dr Aden and clot removal. He was not weaned off vent and now back on sedation and on vent. He opens eyes and stare, no verbal communication. Neurological Examination( Limited Neuro exam) He is sedated and intubated and opens eye he do not follow command, right sided hemiparesis His vital is normal, no neck stiffness pupils is reactive, small, mild right facial palsy Assessment: left basal ganglia bleed with intra ventricular extension. S/P Craniotomy on May 11 and clot removal. Plan: 1. continue keppra for now, 2. continue icu are adn supportive care 3. no active seizure seen, Dr Gr group would be covering over the weekend. Thanking you so much Avelino Phoenix MD
[2018-05-19] MEDS: ATORVASTATIN CA 80 MG TABLET (FP) PO SCH (21:30)
[2018-05-19] MEDS ORDERED: INSULIN (LEVEMIR) 100 UNITS/ML UNITS SQ SCH (22:00)
[2018-05-20] MEDS ORDERED: DEXTROSE 5%-WATER - 50 ML IVPB ONE ×4 (01:05→21:23)
[2018-05-20] MEDS ORDERED: PIPERACILLIN/TAZOBACTAM 3.375 GM VIAL IVPB ONE ×4 (01:05→21:23)
[2018-05-20] MEDS: PROPOFOL 1,000,000 MCG/100 ML VIAL IVPB SCH (01:43)
[2018-05-20] MEDS: PIPERACILLIN/TAZOB 3.375 GM 3.375 GM in DEXTROSE 5%-WATER - 50 ML IVPB SCH ×3 (01:43→17:13)
[2018-05-20] MEDS: ACETAMINOPHEN 325 MG TABLET (FP) PO PRN (02:50)
[2018-05-20] MEDS ORDERED: LABETALOL HCL 200 MG TABLET (FP) ONE ×3 (05:51→21:22)
[2018-05-20] MEDS ORDERED: LABETALOL HCL 100 MG TABLET (FP) ONE ×3 (05:51→21:22)
[2018-05-20] MEDS: DOCUSATE SODIUM 100 MG CAPSULE (FP) PO SCH ×3 (05:53→21:31)
[2018-05-20] MEDS: LABETALOL HCL 200 MG, LABETALOL HCL 100 MG PO SCH ×3 (05:53→21:31)
[2018-05-20] MEDS: HEPARIN NA (PORCINE) 5,000 UNITS/ML 1ML VIAL SQ SCH ×3 (05:54→21:31)
[2018-05-20 06:12] LABS: BASO % 0.1 % (0-2.0); EOS % 0.1 % (0-4.5); HEMATOCRIT 31.9 % (35.4-49); HEMOGLOBIN 10.2 GM/dL (11.7-16.9); LYMPH % 7.5 % (8-40); MCH 27.6 pg (25.7-33.7); MEAN CELL VOLUME 86.2 fl (80-96); MEAN PLT VOLUME 11.2 fl (7.5-11.1); MONO % 4.8 % (3.8-10.2); NEUT % 87.5 % (42.8-82.8); PLATELET COUNT 102 K/MM3 (134-434); RDW 13.8 % (11.9-15.9); WHITE BLOOD COUNT 8.3 K/mm3 (4.0-10.0)
[2018-05-20 06:43] LABS: ARTERIAL BLOOD GAS BASE EXCESS 3.6 meq/l (-2-2); ARTERIAL BLOOD GAS PCO2 43.7 mmHg (35-45); ARTERIAL BLOOD GAS PO2 92.3 mmHg (80-100); ARTERIAL BLOOD GAS pH 7.42 (7.35-7.45)
[2018-05-20 06:47] LABS: ALBUMIN 2.1 g/dl (3.4-5.0); ALK PHOS 119 U/L (45-117); ANION GAP 5 MMOL/L (8-16); BILIRUBIN,TOTAL 0.3 mg/dL (0.2-1); BLOOD UREA NITROGEN 65 mg/dL (7-18); CALCIUM 7.7 mg/dL (8.5-10.1); CHLORIDE 112 mmol/L (98-107); CO2 29 mmol/L (21-32); CREATININE 1.3 mg/dL (0.55-1.3); MAGNESIUM 2.7 mg/dL (1.8-2.4); PHOSPHOROUS 3.1 mg/dL (2.5-4.9); POTASSIUM 5.6 mmol/L (3.5-5.1); SGOT/AST 12 U/L (15-37); SGPT/ALT 31 U/L (13-61); SODIUM 146 mmol/L (136-145); TOT PROT 5.4 g/dl (6.4-8.2)
[2018-05-20] MEDS: INSULIN SLIDING SCALE (NOVOLOG) 1 VIAL SQ SCH (06:53)
[2018-05-20 06:56] LABS: GLUCOSE,RANDOM 364 mg/dL (74-106)
[2018-05-20] MEDS ORDERED: INSULIN (LEVEMIR) 100 UNITS/ML UNITS SQ SCH (07:00)
[2018-05-20 07:15] LABS: ALLENS TEST POSITIVE
--- NOTE | 2018-05-20 08:15 | PN ---
Progress Note, Physician Chief Complaint: EXTUBATED THEN REINTUBATED SEDATED RESPIRATORY FAILURE - Current Medication List Current Medications: Active Medications Acetaminophen (Tylenol -) 650 mg PO Q6H PRN PRN Reason: FEVER Last Admin: 05/20/18 02:50 Dose: 650 mg Amlodipine Besylate (Norvasc -) 10 mg PO DAILY [facility] Last Admin: 05/19/18 10:04 Dose: 10 mg Aspirin (Ecotrin -) 81 mg PO DAILY [facility] Last Admin: 05/19/18 10:03 Dose: 81 mg Atorvastatin Calcium (Lipitor -) 80 mg PO HS [facility] Last Admin: 05/19/18 21:30 Dose: 80 mg Dexamethasone (Decadron -) 2 mg NGT BID [facility] Last Admin: 05/19/18 21:30 Dose: 2 mg Docusate Sodium (Colace -) 100 mg PO TID [facility] Last Admin: 05/20/18 05:53 Dose: 100 mg Heparin Sodium (Porcine) (Heparin -) 5,000 unit SQ TID [facility] Last Admin: 05/20/18 05:54 Dose: 5,000 unit Propofol (Diprivan -) 1,000,000 mcg in 100 mls @ 2.507 mls/hr IVPB TITR [facility]; Protocol Last Admin: 05/20/18 01:43 Dose: Not Given Piperacillin Sod/Tazobactam (Sod 3.375 gm/ Dextrose) 50 mls @ 100 mls/hr IVPB Q8H-IV [facility]; Protocol Last Admin: 05/20/18 01:43 Dose: 100 mls/hr Fentanyl 500 mcg/ Dextrose 100 mls @ 10 mls/hr IVPB TITR [facility]; Protocol Stop: 05/20/18 08:29 Last Titration: 05/20/18 07:00 Dose: 0 mcg/hr, 0 mls/hr Vancomycin HCl (Vancomycin (Pre-Docked)) 1,000 mg in 250 mls @ 200 mls/hr IVPB Q24H [facility]; Protocol Last Admin: 05/19/18 12:42 Dose: 200 mls/hr Insulin Human Regular 100 (units/ Sodium Chloride) 100 mls @ 7.73 mls/hr IVPB TITR [facility]; Protocol Last Titration: 05/20/18 03:05 Dose: 0 units/kg/hr, 0 mls/hr Insulin Aspart (Novolog Vial Sliding Scale -) 1 vial SQ ACHS [facility]; Protocol Last Admin: 05/20/18 06:53 Dose: 10 units Insulin Detemir (Levemir Vial) 11 units SQ 0700 [facility] Last Admin: 05/20/18 06:52 Dose: 11 units Labetalol HCl 200 mg/ (Labetalol HCl 100 mg) 300 mg PO TID [facility] Last Admin: 05/20/18 05:53 Dose: 300 mg Levetiracetam (Keppra Injection -) 500 mg IVPB BID [facility] Last Admin: 05/19/18 21:30 Dose: 500 mg Lisinopril (Prinivil) 20 mg PO DAILY [facility] Last Admin: 05/19/18 10:04 Dose: 20 mg Ondansetron HCl (Zofran Injection) 4 mg IVPUSH Q6H PRN PRN Reason: NAUSEA AND/OR VOMITING Last Admin: 05/11/18 19:00 Dose: 4 mg Pantoprazole Sodium (Protonix Iv) 40 mg IVPUSH DAILY [facility] Last Admin: 05/19/18 10:03 Dose: 40 mg - Objective Vital Signs: Vital Signs Temperature 98.8 F 05/20/18 06:00 Pulse Rate 96 H 05/20/18 06:00 Respiratory Rate 18 05/20/18 06:38 Blood Pressure 128/81 05/20/18 06:00 O2 Sat by Pulse Oximetry (%) 97 05/19/18 22:00 Constitutional: Yes: Mild Distress Eyes: Yes: WNL HENT: Yes: WNL Neck: Yes: WNL Cardiovascular: Yes: Regular Rate and Rhythm Respiratory: Yes: Diminished, Mechanically Ventilated Gastrointestinal: Yes: WNL Genitourinary: Yes: Smith Present Musculoskeletal: Yes: Muscle Weakness Extremities: Yes: Other Edema: Yes Integumentary: Yes: Other Wound/Incision: Yes: Dressing Dry and Intact Neurological: Yes: Pre-Existing Deficit ...Motor Strength: LLE, RLE Psychiatric: Yes: Other Labs: CBC, BMP 05/20/18 05:30 05/20/18 05:30 INR, PTT INR 1.06 (0.83-1.09) 05/10/18 16:15 Problem List - Problems (1) Diabetes Code(s): E11.9 - TYPE 2 DIABETES MELLITUS WITHOUT COMPLICATIONS (2) Fall Code(s): W19.XXXA - UNSPECIFIED FALL, INITIAL ENCOUNTER Qualifiers: Encounter type: initial encounter Qualified Code(s): W19.XXXA - Unspecified fall, initial encounter (3) HTN (hypertension) Code(s): I10 - ESSENTIAL (PRIMARY) HYPERTENSION (4) Intracranial bleed Code(s): I62.9 - NONTRAUMATIC INTRACRANIAL HEMORRHAGE, UNSPECIFIED (5) Respiratory failure Code(s): J96.90 - RESPIRATORY FAILURE, UNSP, UNSP W HYPOXIA OR HYPERCAPNIA (6) S/P craniotomy Code(s): Z98.890 - OTHER SPECIFIED POSTPROCEDURAL STATES Assessment/Plan S/P CRANIOTOMY THALAMIC MASS, ICH SEDATED AND RE-INTUBATED ON VENT SUPPORT ONCE STABLE PRESSURES CAN TRY WEANING OFF OF VENT WILL LIKELY NEED TO HAVE TRACHEOSTOMY DVT PROPHYLAXIS IV ZOSYN MONITOR LABS NEUROLOGY/PULM F/U NEUROSURGERY CONSULT APPRECIATED
[2018-05-20] MEDS: INSULIN REGULAR 100 UNITS in SODIUM CHLORIDE 99 ML IVPB SCH (09:30)
--- NOTE | 2018-05-20 10:11 | PN ---
Progress Note, Physician History of Present Illness: Awake on ventilator Low grade fever noted WBC WNL Sputum c/s mixed, including MRSA Urine pneumococcal ag + Azotemia improved - Current Medication List Current Medications: Active Medications Acetaminophen (Tylenol -) 650 mg PO Q6H PRN PRN Reason: FEVER Last Admin: 05/20/18 02:50 Dose: 650 mg Amlodipine Besylate (Norvasc -) 10 mg PO DAILY [facility] Last Admin: 05/19/18 10:04 Dose: 10 mg Aspirin (Ecotrin -) 81 mg PO DAILY [facility] Last Admin: 05/19/18 10:03 Dose: 81 mg Atorvastatin Calcium (Lipitor -) 80 mg PO HS [facility] Last Admin: 05/19/18 21:30 Dose: 80 mg Dexamethasone (Decadron -) 2 mg NGT BID [facility] Last Admin: 05/19/18 21:30 Dose: 2 mg Docusate Sodium (Colace -) 100 mg PO TID [facility] Last Admin: 05/20/18 05:53 Dose: 100 mg Heparin Sodium (Porcine) (Heparin -) 5,000 unit SQ TID [facility] Last Admin: 05/20/18 05:54 Dose: 5,000 unit Propofol (Diprivan -) 1,000,000 mcg in 100 mls @ 2.507 mls/hr IVPB TITR [facility]; Protocol Last Admin: 05/20/18 01:43 Dose: Not Given Piperacillin Sod/Tazobactam (Sod 3.375 gm/ Dextrose) 50 mls @ 100 mls/hr IVPB Q8H-IV [facility]; Protocol Last Admin: 05/20/18 01:43 Dose: 100 mls/hr Vancomycin HCl (Vancomycin (Pre-Docked)) 1,000 mg in 250 mls @ 200 mls/hr IVPB Q24H [facility]; Protocol Last Admin: 05/19/18 12:42 Dose: 200 mls/hr Insulin Human Regular 100 (units/ Sodium Chloride) 100 mls @ 7.73 mls/hr IVPB TITR [facility]; Protocol Labetalol HCl 200 mg/ (Labetalol HCl 100 mg) 300 mg PO TID [facility] Last Admin: 05/20/18 05:53 Dose: 300 mg Levetiracetam (Keppra Injection -) 500 mg IVPB BID [facility] Last Admin: 05/19/18 21:30 Dose: 500 mg Lisinopril (Prinivil) 20 mg PO DAILY [facility] Last Admin: 05/19/18 10:04 Dose: 20 mg Ondansetron HCl (Zofran Injection) 4 mg IVPUSH Q6H PRN PRN Reason: NAUSEA AND/OR VOMITING Last Admin: 05/11/18 19:00 Dose: 4 mg Pantoprazole Sodium (Protonix Iv) 40 mg IVPUSH DAILY [facility] Last Admin: 05/19/18 10:03 Dose: 40 mg Sodium Polystyrene Sulfonate (Kayexalate -) 30 gm PO ONCE ONE Stop: 05/20/18 10:16 - Objective Vital Signs: Vital Signs Temperature 99.1 F 05/20/18 09:48 Pulse Rate 93 H 05/20/18 09:48 Respiratory Rate 18 05/20/18 09:48 Blood Pressure 152/75 05/20/18 09:48 O2 Sat by Pulse Oximetry (%) 97 05/19/18 22:00 Constitutional: Yes: No Distress Eyes: Yes: Conjunctiva Clear HENT: Yes: Other (Craniotomy wound with joão in place. No erythema/drainage) Cardiovascular: Yes: Regular Rate and Rhythm, S1, S2 Respiratory: Yes: Mechanically Ventilated Gastrointestinal: Yes: Normal Bowel Sounds, Soft. No: Tenderness Edema: No Labs: CBC, BMP 05/20/18 05:30 05/20/18 05:30 INR, PTT INR 1.06 (0.83-1.09) 05/10/18 16:15 Assessment/Plan LLL pneumonia + sputum c/s MRSA/ mixed + pneumococcal ag Respiratory failure S/P craniotomy S/A AVR Azotemia improved Uncontrolled DM Continue zosyn/ vancomycin Contact precautions MRSA
[2018-05-20] MEDS ORDERED: SODIUM POLYSTYRENE SULFONATE 15 GM/60 ML BOTTLE PO ONE (10:15)
[2018-05-20] MEDS: DEXAMETHASONE 4 MG TABLET (FP) NGT SCH ×2 (10:22→21:32)
[2018-05-20] MEDS: levETIRAcetam 500 MG/5 ML INJECTION VIAL IVPB SCH ×2 (10:22→21:31)
[2018-05-20] MEDS: amLODIPine BESYLATE 10 MG TABLET (FP) PO SCH (10:23)
[2018-05-20] MEDS: PANTOPRAZOLE SODIUM 40 MG VIAL IVPUSH SCH (10:23)
[2018-05-20] MEDS: LISINOPRIL 20 MG TABLET (FP) PO SCH (10:23)
[2018-05-20] MEDS: ASPIRIN COATED 81 MG TABLET.EC PO SCH (10:24)
--- NOTE | 2018-05-20 10:51 | PN ---
Teaching Attending Note Name of Resident: Can Ledbetter ATTENDING PHYSICIAN STATEMENT I saw and evaluated the patient. I reviewed the resident's note and discussed the case with the resident. I agree with the resident's findings and plan as documented. SUBJECTIVE: Patient seen and examined at bedside. Remains intubated. Off sedation. Eyes are open but not tracking or following commands. No pressors. Suboptimal wean parameters. CXR: Some improvement in the right base / no change on the left OBJECTIVE: Intake & Output 05/17/18 05/18/18 05/19/18 05/20/18 23:59 23:59 23:59 23:59 Intake Total 4988 4275.8 4050.4 1212 Output Total 2450 2850 3000 500 Balance 2538 1425.8 1050.4 712 Weight 175 lb 4.8 oz 179 lb 12.8 oz 170 lb 7 oz 170 lb 14.4 oz Last Vital Signs Temp Pulse Resp BP Pulse Ox 99.1 F 93 H 18 152/75 97 05/20/18 09:48 05/20/18 09:48 05/20/18 09:48 05/20/18 09:48 05/19/18 22:00 Active Medications Acetaminophen (Tylenol -) 650 mg PO Q6H PRN PRN Reason: FEVER Last Admin: 05/20/18 02:50 Dose: 650 mg Amlodipine Besylate (Norvasc -) 10 mg PO DAILY [facility] [place] Last Admin: 05/20/18 10:23 Dose: 10 mg Aspirin (Ecotrin -) 81 mg PO DAILY [facility] [place] Last Admin: 05/20/18 10:24 Dose: 81 mg Atorvastatin Calcium (Lipitor -) 80 mg PO HS [facility] [place] Last Admin: 05/19/18 21:30 Dose: 80 mg Dexamethasone (Decadron -) 2 mg NGT BID [facility] [place] Last Admin: 05/20/18 10:22 Dose: 2 mg Docusate Sodium (Colace -) 100 mg PO TID [facility] [place] Last Admin: 05/20/18 05:53 Dose: 100 mg Heparin Sodium (Porcine) (Heparin -) 5,000 unit SQ TID [facility] [place] Last Admin: 05/20/18 05:54 Dose: 5,000 unit Propofol (Diprivan -) 1,000,000 mcg in 100 mls @ 2.507 mls/hr IVPB TITR [facility] [place]; Protocol Last Admin: 05/20/18 01:43 Dose: Not Given Piperacillin Sod/Tazobactam (Sod 3.375 gm/ Dextrose) 50 mls @ 100 mls/hr IVPB Q8H-IV [facility]; Protocol Last Admin: 05/20/18 10:23 Dose: 100 mls/hr Vancomycin HCl (Vancomycin (Pre-Docked)) 1,000 mg in 250 mls @ 200 mls/hr IVPB Q24H [facility]; Protocol Last Admin: 05/19/18 12:42 Dose: 200 mls/hr Insulin Human Regular 100 (units/ Sodium Chloride) 100 mls @ 7.73 mls/hr IVPB TITR [facility]; Protocol Last Admin: 05/20/18 09:30 Dose: 0.1 units/kg/hr, 7.73 mls/hr Labetalol HCl 200 mg/ (Labetalol HCl 100 mg) 300 mg PO TID [facility] [place] Last Admin: 05/20/18 05:53 Dose: 300 mg Levetiracetam (Keppra Injection -) 500 mg IVPB BID [facility] [place] Last Admin: 05/20/18 10:22 Dose: 500 mg Lisinopril (Prinivil) 20 mg PO DAILY [facility] [place] Last Admin: 05/20/18 10:23 Dose: 20 mg Ondansetron HCl (Zofran Injection) 4 mg IVPUSH Q6H PRN PRN Reason: NAUSEA AND/OR VOMITING Last Admin: 05/11/18 19:00 Dose: 4 mg Pantoprazole Sodium (Protonix Iv) 40 mg IVPUSH DAILY [facility] [place] Last Admin: 05/20/18 10:23 Dose: 40 mg GENERAL: Intubated, awake, not following commands EYES: PERRL, sclera anicteric, conjunctiva clear. ENT: moist mucous membranes. NECK: Trachea midline. LUNGS: Vented, coarse breath sounds Left > Right, no wheezes. HEART: Regular rate and rhythm, S1, S2 without murmur, rub or gallop. ABDOMEN: Soft, nontender, nondistended, normoactive bowel sounds, no guarding, no rebound, no hepatosplenomegaly, no masses. EXTREMITIES: 2+ pulses, warm, well-perfused, no edema. NEUROLOGICAL: awake, not following commands PSYCH: sedated SKIN: Warm, dry, normal turgor, no rashes or lesions noted Laboratory Results - last 24 hr 05/19/18 05/19/18 05/19/18 12:03 16:28 17:38 WBC RBC Hgb Hct MCV MCH MCHC RDW Plt Count MPV Absolute Neuts (auto) Neutrophils % Lymphocytes % Monocytes % Eosinophils % Basophils % Nucleated RBC % Puncture Site ABG pH ABG pCO2 at Pt Temp ABG pO2 at Pt Temp ABG HCO3 ABG O2 Sat (Measured) ABG O2 Content ABG Base Excess Oziel Test Oxygen Flow Rate Vent Rate Mechanical Rate PEEP Pressure Support Vent Sodium Potassium Chloride Carbon Dioxide Anion Gap BUN Creatinine Creat Clearance w eGFR POC Glucometer 145.73528 > 400 160.85366 Random Glucose Lactic Acid Calcium Phosphorus Magnesium Total Bilirubin AST ALT Alkaline Phosphatase Total Protein Albumin 05/19/18 05/19/18 05/20/18 19:02 21:36 02:06 WBC RBC Hgb Hct MCV MCH MCHC RDW Plt Count MPV Absolute Neuts (auto) Neutrophils % Lymphocytes % Monocytes % Eosinophils % Basophils % Nucleated RBC % Puncture Site ABG pH ABG pCO2 at Pt Temp ABG pO2 at Pt Temp ABG HCO3 ABG O2 Sat (Measured) ABG O2 Content ABG Base Excess Oziel Test Oxygen Flow Rate Vent Rate Mechanical Rate PEEP Pressure Support Vent Sodium Potassium Chloride Carbon Dioxide Anion Gap BUN Creatinine Creat Clearance w eGFR POC Glucometer 167.71590 372.85366 370.84088 Random Glucose Lactic Acid Calcium Phosphorus Magnesium Total Bilirubin AST ALT Alkaline Phosphatase Total Protein Albumin 05/20/18 05/20/18 05/20/18 04:31 05:30 05:30 WBC 8.3 RBC 3.70 L Hgb 10.2 L Hct 31.9 L MCV 86.2 MCH 27.6 MCHC 32.0 RDW 13.8 Plt Count 102 L MPV 11.2 H Absolute Neuts (auto) 7.3 Neutrophils % 87.5 H Lymphocytes % 7.5 L Monocytes % 4.8 Eosinophils % 0.1 D Basophils % 0.1 Nucleated RBC % 0 Puncture Site ABG pH ABG pCO2 at Pt Temp ABG pO2 at Pt Temp ABG HCO3 ABG O2 Sat (Measured) ABG O2 Content ABG Base Excess Oziel Test Oxygen Flow Rate Vent Rate Mechanical Rate PEEP Pressure Support Vent Sodium 146 H Potassium 5.6 H Chloride 112 H Carbon Dioxide 29 Anion Gap 5 L BUN 65 H Creatinine 1.3 Creat Clearance w eGFR 55.06 POC Glucometer > 400 Random Glucose 364 H* Lactic Acid Calcium 7.7 L Phosphorus 3.1 Magnesium 2.7 H Total Bilirubin 0.3 AST 12 L ALT 31 Alkaline Phosphatase 119 H Total Protein 5.4 L Albumin 2.1 L 05/20/18 05/20/18 05/20/18 05:30 05:31 05:45 WBC RBC Hgb Hct MCV MCH MCHC RDW Plt Count MPV Absolute Neuts (auto) Neutrophils % Lymphocytes % Monocytes % Eosinophils % Basophils % Nucleated RBC % Puncture Site Right radial ABG pH 7.42 ABG pCO2 at Pt Temp 43.7 ABG pO2 at Pt Temp 92.3 ABG HCO3 28.0 H ABG O2 Sat (Measured) 97.0 ABG O2 Content 13.2 L ABG Base Excess 3.6 H Oziel Test Positive Oxygen Flow Rate 40% Vent Rate 16 Mechanical Rate Yes PEEP 5.0 Pressure Support Vent 450 Sodium Potassium Chloride Carbon Dioxide Anion Gap BUN Creatinine Creat Clearance w eGFR POC Glucometer > 400 Random Glucose Lactic Acid 1.7 Calcium Phosphorus Magnesium Total Bilirubin AST ALT Alkaline Phosphatase Total Protein Albumin 05/20/18 05/20/18 06:35 08:31 WBC RBC Hgb Hct MCV MCH MCHC RDW Plt Count MPV Absolute Neuts (auto) Neutrophils % Lymphocytes % Monocytes % Eosinophils % Basophils % Nucleated RBC % Puncture Site ABG pH ABG pCO2 at Pt Temp ABG pO2 at Pt Temp ABG HCO3 ABG O2 Sat (Measured) ABG O2 Content ABG Base Excess Oziel Test Oxygen Flow Rate Vent Rate Mechanical Rate PEEP Pressure Support Vent Sodium Potassium Chloride Carbon Dioxide Anion Gap BUN Creatinine Creat Clearance w eGFR POC Glucometer 383.03247 329.57530 Random Glucose Lactic Acid Calcium Phosphorus Magnesium Total Bilirubin AST ALT Alkaline Phosphatase Total Protein Albumin ASSESSMENT/PLAN: Acute Respiratory Failure (3rd intubation) POD#8 Left frontal craniotomy, excision of thalamic hermorrhagic mass AFIB Recent hemorrhagic CVA DM Maintain off sedation vacation to further assess mental status Enteral feeds BP control Monitor off IVF ABX coverage Monitor CXR Xavi Head of bed: 30 degrees. PPI Wean Decadron May need Trach ICU monitoring Dr Gatica Critical Care patient: Yes Total Critical Care Time (in minutes): 36 Critical Care Statement: The care of this patient involved high complexity decision making to prevent further life threatening deterioration of the patient 's condition and/or to evaluate & treat vital organ system(s) failure or risk of failure.
[2018-05-20] MEDS: VANCOMYCIN 1 GRAM (PRE-DOCKED) 1,000 MG/250 ML BAG IVPB SCH (11:55)
--- NOTE | 2018-05-20 12:33 | PN ---
Physical Exam: SUBJECTIVE: Patient seen and examined at bedside. He is intubated but not sedated. He is awake but not alert. He does not follow commands well. Spoke with his sister at length yesterday regarding possible course of action and how that if we cannot wean him off the vent we will have to consider tracheostomy. OBJECTIVE: Vital Signs Period Temp Pulse Resp BP Sys/Goel Pulse Ox Last 24 Hr 98.4 F-100.8 F 82-96 16-18 116-152/64-84 97-98 GENERAL: The patient is awake, not alert, and not oriented. HEAD: Surgical head dressing. No erythematous areas. EYES: PERRL, sclera anicteric, conjunctiva clear. ENT: Ears normal, nares patent, moist mucous membranes. NECK: Trachea midline. LUNGS: Coarse breath sounds bilaterally. no crackles. HEART: Regular rate and irregular rhythm, S1, S2 without murmur, rub or gallop. ABDOMEN: Soft, nondistended, normoactive bowel sounds. EXTREMITIES: 2+ pulses, warm, well-perfused, no edema. NEUROLOGICAL: Pupils equal and reactive. + gag reflex. Patient blinks with stimuli. Tough to assess further. PSYCH: Poor eye contact. SKIN: Warm, dry, normal turgor, no rashes or lesions noted Laboratory Results - last 24 hr 05/19/18 05/19/18 05/19/18 12:03 16:28 17:38 WBC RBC Hgb Hct MCV MCH MCHC RDW Plt Count MPV Absolute Neuts (auto) Neutrophils % Lymphocytes % Monocytes % Eosinophils % Basophils % Nucleated RBC % Puncture Site ABG pH ABG pCO2 at Pt Temp ABG pO2 at Pt Temp ABG HCO3 ABG O2 Sat (Measured) ABG O2 Content ABG Base Excess Oziel Test Oxygen Flow Rate Vent Rate Mechanical Rate PEEP Pressure Support Vent Sodium Potassium Chloride Carbon Dioxide Anion Gap BUN Creatinine Creat Clearance w eGFR POC Glucometer 145.43101 > 400 160.15790 Random Glucose Lactic Acid Calcium Phosphorus Magnesium Total Bilirubin AST ALT Alkaline Phosphatase Total Protein Albumin 05/19/18 05/19/18 05/20/18 19:02 21:36 02:06 WBC RBC Hgb Hct MCV MCH MCHC RDW Plt Count MPV Absolute Neuts (auto) Neutrophils % Lymphocytes % Monocytes % Eosinophils % Basophils % Nucleated RBC % Puncture Site ABG pH ABG pCO2 at Pt Temp ABG pO2 at Pt Temp ABG HCO3 ABG O2 Sat (Measured) ABG O2 Content ABG Base Excess Oziel Test Oxygen Flow Rate Vent Rate Mechanical Rate PEEP Pressure Support Vent Sodium Potassium Chloride Carbon Dioxide Anion Gap BUN Creatinine Creat Clearance w eGFR POC Glucometer 167.61635 372.70986 [phone] Random Glucose Lactic Acid Calcium Phosphorus Magnesium Total Bilirubin AST ALT Alkaline Phosphatase Total Protein Albumin 05/20/18 05/20/18 05/20/18 04:31 05:30 05:30 WBC 8.3 RBC 3.70 L Hgb 10.2 L Hct 31.9 L MCV 86.2 MCH 27.6 MCHC 32.0 RDW 13.8 Plt Count 102 L MPV 11.2 H Absolute Neuts (auto) 7.3 Neutrophils % 87.5 H Lymphocytes % 7.5 L Monocytes % 4.8 Eosinophils % 0.1 D Basophils % 0.1 Nucleated RBC % 0 Puncture Site ABG pH ABG pCO2 at Pt Temp ABG pO2 at Pt Temp ABG HCO3 ABG O2 Sat (Measured) ABG O2 Content ABG Base Excess Oziel Test Oxygen Flow Rate Vent Rate Mechanical Rate PEEP Pressure Support Vent Sodium 146 H Potassium 5.6 H Chloride 112 H Carbon Dioxide 29 Anion Gap 5 L BUN 65 H Creatinine 1.3 Creat Clearance w eGFR 55.06 POC Glucometer > 400 Random Glucose 364 H* Lactic Acid Calcium 7.7 L Phosphorus 3.1 Magnesium 2.7 H Total Bilirubin 0.3 AST 12 L ALT 31 Alkaline Phosphatase 119 H Total Protein 5.4 L Albumin 2.1 L 05/20/18 05/20/18 05/20/18 05:30 05:31 05:45 WBC RBC Hgb Hct MCV MCH MCHC RDW Plt Count MPV Absolute Neuts (auto) Neutrophils % Lymphocytes % Monocytes % Eosinophils % Basophils % Nucleated RBC % Puncture Site Right radial ABG pH 7.42 ABG pCO2 at Pt Temp 43.7 ABG pO2 at Pt Temp 92.3 ABG HCO3 28.0 H ABG O2 Sat (Measured) 97.0 ABG O2 Content 13.2 L ABG Base Excess 3.6 H Oziel Test Positive Oxygen Flow Rate 40% Vent Rate 16 Mechanical Rate Yes PEEP 5.0 Pressure Support Vent 450 Sodium Potassium Chloride Carbon Dioxide Anion Gap BUN Creatinine Creat Clearance w eGFR POC Glucometer > 400 Random Glucose Lactic Acid 1.7 Calcium Phosphorus Magnesium Total Bilirubin AST ALT Alkaline Phosphatase Total Protein Albumin 05/20/18 05/20/18 05/20/18 06:35 08:31 11:20 WBC RBC Hgb Hct MCV MCH MCHC RDW Plt Count MPV Absolute Neuts (auto) Neutrophils % Lymphocytes % Monocytes % Eosinophils % Basophils % Nucleated RBC % Puncture Site ABG pH ABG pCO2 at Pt Temp ABG pO2 at Pt Temp ABG HCO3 ABG O2 Sat (Measured) ABG O2 Content ABG Base Excess Oziel Test Oxygen Flow Rate Vent Rate Mechanical Rate PEEP Pressure Support Vent Sodium Potassium Chloride Carbon Dioxide Anion Gap BUN Creatinine Creat Clearance w eGFR POC Glucometer 383.57139 329.73483 242.89976 Random Glucose Lactic Acid Calcium Phosphorus Magnesium Total Bilirubin AST ALT Alkaline Phosphatase Total Protein Albumin Active Medications Generic Name Dose Route Start Last Admin Trade Name Freq PRN Reason Stop Dose Admin Acetaminophen 650 mg 05/13/18 10:24 05/20/18 02:50 Tylenol - PO 650 mg Q6H PRN Administration FEVER Amlodipine Besylate 10 mg 05/13/18 10:00 05/20/18 10:23 Norvasc - PO 10 mg DAILY [facility]EN Administration Aspirin 81 mg 05/15/18 10:00 05/20/18 10:24 Ecotrin - PO 81 mg DAILY [facility]EN Administration Atorvastatin Calcium 80 mg 05/13/18 22:00 05/19/18 21:30 Lipitor - PO 80 mg HS [facility]EN Administration Dexamethasone 2 mg 05/19/18 22:00 05/20/18 10:22 Decadron - NGT 2 mg BID [facility]EN Administration Docusate Sodium 100 mg 05/11/18 22:00 05/20/18 05:53 Colace - PO 100 mg TID HIEN Administration Heparin Sodium (Porcine) 5,000 unit 05/19/18 06:00 05/20/18 05:54 Heparin - SQ 5,000 unit TID [facility]EN Administration Propofol 1,000,000 mcg in 100 mls @ 2.507 mls/hr 05/14/18 23:45 05/20/18 01: 43 Diprivan - IVPB Not Given TITR HIEN Protocol 5 MCG/KG/MIN Piperacillin Sod/Tazobactam 50 mls @ 100 mls/hr 05/15/18 18:00 05/20/18 10:23 Sod 3.375 gm/ Dextrose IVPB 100 mls/hr Q8H-IV [facility] Administration Protocol Vancomycin HCl 1,000 mg in 250 mls @ 200 mls/hr 05/19/18 11:30 05/20/18 11:55 Vancomycin (Pre-Docked) IVPB 200 mls/hr Q24H [facility] Administration Protocol Insulin Human Regular 100 100 mls @ 7.73 mls/hr 05/20/18 09:30 05/20/18 09:30 units/ Sodium Chloride IVPB 0.1 units/kg/hr TITR HIEN 7.73 mls/hr Administration Protocol 0.1 UNITS/KG/HR Labetalol HCl 200 mg/ 300 mg 05/13/18 14:00 05/20/18 05:53 Labetalol HCl 100 mg PO 300 mg TID [facility]EN Administration Levetiracetam 500 mg 05/11/18 22:00 05/20/18 10:22 Keppra Injection - IVPB 500 mg BID [facility] Administration Lisinopril 20 mg 05/13/18 10:00 05/20/18 10:23 Prinivil PO 20 mg DAILY [facility] Administration Ondansetron HCl 4 mg 05/11/18 17:57 05/11/18 19:00 Zofran Injection IVPUSH 4 mg Q6H PRN Administration NAUSEA AND/OR VOMITING Pantoprazole Sodium 40 mg 05/12/18 10:00 05/20/18 10:23 Protonix Iv IVPUSH 40 mg DAILY [facility] Administration ASSESSMENT/PLAN: Assessment: 67 yo M w a hx of AFIB, recent hemorrhagic CVA, T2DM is here s/p Left frontal craniotomy and blood clot removal after being operated on by Dr. Taveras. There are X-ray changes which suggest an infiltrate or atelectasis in the left base. We started him on an insulin drip today because his glucose was not well controlled with sliding scale. Goal glucose between 140-180. QI improving. BUN today - 65, Cr 1.3. We have tapered his decadron to 2 Q 12 Plan: Nephro: - QI - likely Pre-renal injury. Improving. - Kidney US showed no hydronephrosis or stones b/l - Urine lites support pre-renal injury. - Renal on board Cardio: - Strict BP control with systolic < 130 - Lebatalol for elevated BP or rate control PRN - Patient is on home meds ID: - ID consulted - PNA: Abx for HCAP vs aspiration. - Positive Strep pneumo in the urine. - Positive MRSA in sputum - Positive E fecalis in urine - Vanc and zosyn being given - Contact precautions Pulm: - Intubated - ABG BID - Try to wean from vent Daily Neuro: - Daily sedation vacations to assess mental status - Keppra 500 mg for seizure prohylaxis. - Head of the bead 30 degrees. GI: - Aspiration precautions. - Protonix 40 - Zofran PRN Endo: - Decadron to 2Q12 - Sliding scale - frequent glucose checks Prophylaxis: - Aspiration precautions. - Heparin 5000 TID F/E/N: - tube feeds - glucerna - Potassium is elevated. treating with kayexalate. - No standing fluids today Code Status: - Full code Dispo: - Patient will continue to receive monitoring in the ICU. Visit type - Emergency Visit Emergency Visit: Yes ED Registration Date: 05/10/18 Care time: The patient presented to the Emergency Department on the above date and was hospitalized for further evaluation of their emergent condition. - New Patient This patient is new to me today: No - Critical Care Critical Care patient: Yes Total Critical Care Time (in minutes): 36 Critical Care Statement: The care of this patient involved high complexity decision making to prevent further life threatening deterioration of the patient 's condition and/or to evaluate & treat vital organ system(s) failure or risk of failure.
--- NOTE | 2018-05-20 18:54 | PN ---
Progress Note, Physician History of Present Illness: Pt seen and examined at bedside. He remains in the ICU. He remains intubated. - Current Medication List Current Medications: Active Medications Acetaminophen (Tylenol -) 650 mg PO Q6H PRN PRN Reason: FEVER Last Admin: 05/20/18 02:50 Dose: 650 mg Amlodipine Besylate (Norvasc -) 10 mg PO DAILY [facility] Last Admin: 05/20/18 10:23 Dose: 10 mg Aspirin (Ecotrin -) 81 mg PO DAILY [facility] Last Admin: 05/20/18 10:24 Dose: 81 mg Atorvastatin Calcium (Lipitor -) 80 mg PO HS [facility] Last Admin: 05/19/18 21:30 Dose: 80 mg Dexamethasone (Decadron -) 2 mg NGT BID [facility] Last Admin: 05/20/18 10:22 Dose: 2 mg Docusate Sodium (Colace -) 100 mg PO TID [facility] Last Admin: 05/20/18 14:12 Dose: 100 mg Heparin Sodium (Porcine) (Heparin -) 5,000 unit SQ TID [facility] Last Admin: 05/20/18 14:11 Dose: 5,000 unit Propofol (Diprivan -) 1,000,000 mcg in 100 mls @ 2.507 mls/hr IVPB TITR [facility]EN; Protocol Last Titration: 05/20/18 18:00 Dose: 10 mcg/kg/min, 5.013 mls/hr Piperacillin Sod/Tazobactam (Sod 3.375 gm/ Dextrose) 50 mls @ 100 mls/hr IVPB Q8H-IV [facility]EN; Protocol Last Admin: 05/20/18 17:13 Dose: 100 mls/hr Vancomycin HCl (Vancomycin (Pre-Docked)) 1,000 mg in 250 mls @ 200 mls/hr IVPB Q24H [facility]; Protocol Last Admin: 05/20/18 11:55 Dose: 200 mls/hr Insulin Human Regular 100 (units/ Sodium Chloride) 100 mls @ 7.73 mls/hr IVPB TITR [facility]EN; Protocol Last Titration: 05/20/18 18:46 Dose: 0.05 units/kg/hr, 3.86 mls/hr Labetalol HCl 200 mg/ (Labetalol HCl 100 mg) 300 mg PO TID [facility]EN Last Admin: 05/20/18 14:11 Dose: 300 mg Levetiracetam (Keppra Injection -) 500 mg IVPB BID [facility] Last Admin: 05/20/18 10:22 Dose: 500 mg Lisinopril (Prinivil) 20 mg PO DAILY [facility] Last Admin: 05/20/18 10:23 Dose: 20 mg Ondansetron HCl (Zofran Injection) 4 mg IVPUSH Q6H PRN PRN Reason: NAUSEA AND/OR VOMITING Last Admin: 05/11/18 19:00 Dose: 4 mg Pantoprazole Sodium (Protonix Iv) 40 mg IVPUSH DAILY [facility] Last Admin: 05/20/18 10:23 Dose: 40 mg - Objective Vital Signs: Vital Signs Temperature 99 F 05/20/18 18:00 Pulse Rate 108 H 05/20/18 18:00 Respiratory Rate 18 05/20/18 18:00 Blood Pressure 125/72 05/20/18 18:00 O2 Sat by Pulse Oximetry (%) 98 05/20/18 09:00 Constitutional: Yes: Calm Eyes: Yes: Conjunctiva Clear HENT: Yes: Other (s/p craneotomy) Cardiovascular: Yes: S1, S2 Gastrointestinal: Yes: Soft Genitourinary: Yes: Smith Present Musculoskeletal: Yes: Muscle Weakness Edema: No Neurological: Yes: Lethargy Labs: CBC, BMP 05/20/18 05:30 05/20/18 05:30 INR, PTT INR 1.06 (0.83-1.09) 05/10/18 16:15 Problem List - Problems (1) Hypernatremia Code(s): E87.0 - HYPEROSMOLALITY AND HYPERNATREMIA (2) QI (acute kidney injury) Code(s): N17.9 - ACUTE KIDNEY FAILURE, UNSPECIFIED (3) Diabetes Code(s): E11.9 - TYPE 2 DIABETES MELLITUS WITHOUT COMPLICATIONS Assessment/Plan Current Medications Generic Name Dose Route Start Last Admin Trade Name Freq PRN Reason Stop Dose Admin Acetaminophen 650 mg 05/13/18 10:24 05/20/18 02:50 Tylenol - PO 650 mg Q6H PRN Administration FEVER Amlodipine Besylate 10 mg 05/13/18 10:00 05/20/18 10:23 Norvasc - PO 10 mg DAILY [facility] Administration Aspirin 81 mg 05/15/18 10:00 05/20/18 10:24 Ecotrin - PO 81 mg DAILY HIEN Administration Atorvastatin Calcium 80 mg 05/13/18 22:00 05/19/18 21:30 Lipitor - PO 80 mg HS HIEN Administration Dexamethasone 2 mg 05/19/18 22:00 05/20/18 10:22 Decadron - NGT 2 mg BID HIEN Administration Docusate Sodium 100 mg 05/11/18 22:00 05/20/18 14:12 Colace - PO 100 mg TID HIEN Administration Heparin Sodium (Porcine) 5,000 unit 05/19/18 06:00 05/20/18 14:11 Heparin - SQ 5,000 unit TID HIEN Administration Propofol 1,000,000 mcg in 100 mls @ 2.507 mls/hr 05/14/18 23:45 05/20/18 18: 00 Diprivan - IVPB 10 mcg/kg/min TITR HIEN 5.013 mls/hr Titration Protocol 5 MCG/KG/MIN Piperacillin Sod/Tazobactam 50 mls @ 100 mls/hr 05/15/18 18:00 05/20/18 17:13 Sod 3.375 gm/ Dextrose IVPB 100 mls/hr Q8H-IV [facility]EN Administration Protocol Vancomycin HCl 1,000 mg in 250 mls @ 200 mls/hr 05/19/18 11:30 05/20/18 11:55 Vancomycin (Pre-Docked) IVPB 200 mls/hr Q24H [facility] Administration Protocol Insulin Human Regular 100 100 mls @ 7.73 mls/hr 05/20/18 09:30 05/20/18 18:46 units/ Sodium Chloride IVPB 0.05 units/kg/hr TITR HIEN 3.86 mls/hr Titration Protocol 0.1 UNITS/KG/HR Labetalol HCl 200 mg/ 300 mg 05/13/18 14:00 05/20/18 14:11 Labetalol HCl 100 mg PO 300 mg TID HIEN Administration Levetiracetam 500 mg 05/11/18 22:00 05/20/18 10:22 Keppra Injection - IVPB 500 mg BID HIEN Administration Lisinopril 20 mg 05/13/18 10:00 05/20/18 10:23 Prinivil PO 20 mg DAILY HIEN Administration Ondansetron HCl 4 mg 05/11/18 17:57 05/11/18 19:00 Zofran Injection IVPUSH 4 mg Q6H PRN Administration NAUSEA AND/OR VOMITING Pantoprazole Sodium 40 mg 05/12/18 10:00 05/20/18 10:23 Protonix Iv IVPUSH 40 mg DAILY HIEN Administration Impression 1. QI 2. hypernatremia 3. hemorrhagic CVA 4. DM 5. a-fib 6. Acute Respiratory Failure 7. s/p Left frontal craniotomy, excision of thalamic hermorrhagic mass 8. hyperkalemia Plan - cont free water - pt recieved kayexylate earlier - hold lisinoril for now as potassium is elevated - monitor bp and if elevated can start a different agent such as hydralazine. pt also had loabetolol pushes ordered - can restart lisinopril at a lower dose if potassium stable - cont free water - renal function is improving - cont to monitor sodium - will need better glucose control - vent support - steroids may be exacerbating blood sugar Dr Davies
[2018-05-20] MEDS: ATORVASTATIN CA 80 MG TABLET (FP) PO SCH (21:31)
[2018-05-21] MEDS: PIPERACILLIN/TAZOB 3.375 GM 3.375 GM in DEXTROSE 5%-WATER - 50 ML IVPB SCH ×3 (02:12→18:56)
[2018-05-21 06:00] LABS: ARTERIAL BLD GAS O2 SATURATION 93.9 % (90-98.9); ARTERIAL BLOOD GAS PCO2 40.4 mmHg (35-45); ARTERIAL BLOOD GAS PO2 71.3 mmHg (80-100); ARTERIAL BLOOD GAS pH 7.48 (7.35-7.45)
[2018-05-21] MEDS ORDERED: LABETALOL HCL 200 MG TABLET (FP) ONE ×3 (06:13→21:01)
[2018-05-21] MEDS ORDERED: LABETALOL HCL 100 MG TABLET (FP) ONE ×3 (06:14→21:01)
[2018-05-21] MEDS: DOCUSATE SODIUM 100 MG CAPSULE (FP) PO SCH ×3 (06:15→21:15)
[2018-05-21] MEDS: LABETALOL HCL 200 MG, LABETALOL HCL 100 MG PO SCH ×3 (06:15→21:16)
[2018-05-21] MEDS: ACETAMINOPHEN 325 MG TABLET (FP) PO PRN ×2 (06:15→21:22)
[2018-05-21] MEDS: HEPARIN NA (PORCINE) 5,000 UNITS/ML 1ML VIAL SQ SCH ×3 (06:16→21:16)
[2018-05-21 06:44] LABS: BASO % 0.1 % (0-2.0); EOS % 0.2 % (0-4.5); HEMATOCRIT 31.1 % (35.4-49); HEMOGLOBIN 10.3 GM/dL (11.7-16.9); LYMPH % 9.5 % (8-40); MEAN CELL VOLUME 84.8 fl (80-96); MEAN PLT VOLUME 11.2 fl (7.5-11.1); MONO % 5.4 % (3.8-10.2); NEUT % 84.8 % (42.8-82.8); PLATELET COUNT 102 K/MM3 (134-434); RBC 3.67 M/mm3 (4.00-5.60); WHITE BLOOD COUNT 10.3 K/mm3 (4.0-10.0)
[2018-05-21 06:52] LABS: ALLENS TEST POSITIVE
[2018-05-21 07:20] LABS: ALK PHOS 110 U/L (45-117); ANION GAP 7 MMOL/L (8-16); BILIRUBIN,TOTAL 0.4 mg/dL (0.2-1); BLOOD UREA NITROGEN 58 mg/dL (7-18); CALCIUM 7.8 mg/dL (8.5-10.1); CHLORIDE 113 mmol/L (98-107); CO2 30 mmol/L (21-32); CREATININE 1.2 mg/dL (0.55-1.3); GLUCOSE,RANDOM 169 mg/dL (74-106); MAGNESIUM 2.6 mg/dL (1.8-2.4); PHOSPHOROUS 4.2 mg/dL (2.5-4.9); POTASSIUM 4.7 mmol/L (3.5-5.1); SGOT/AST 30 U/L (15-37); SGPT/ALT 31 U/L (13-61); SODIUM 150 mmol/L (136-145); TOT PROT 5.2 g/dl (6.4-8.2)
--- NOTE | 2018-05-21 08:24 | PN ---
Progress Note, Physician Chief Complaint: Intracranial hemorrhage History of Present Illness: On mechanical vent s/p craniotomy overall poor prognosis - Current Medication List Current Medications: Active Medications Acetaminophen (Tylenol -) 650 mg PO Q6H PRN PRN Reason: FEVER Last Admin: 05/21/18 06:15 Dose: 650 mg Amlodipine Besylate (Norvasc -) 10 mg PO DAILY HIEN Last Admin: 05/20/18 10:23 Dose: 10 mg Aspirin (Ecotrin -) 81 mg PO DAILY [facility]EN Last Admin: 05/20/18 10:24 Dose: 81 mg Atorvastatin Calcium (Lipitor -) 80 mg PO HS [facility]EN Last Admin: 05/20/18 21:31 Dose: 80 mg Dexamethasone (Decadron -) 2 mg NGT BID [facility]EN Last Admin: 05/20/18 21:32 Dose: 2 mg Docusate Sodium (Colace -) 100 mg PO TID [facility]EN Last Admin: 05/21/18 06:15 Dose: 100 mg Heparin Sodium (Porcine) (Heparin -) 5,000 unit SQ TID [facility]EN Last Admin: 05/21/18 06:16 Dose: 5,000 unit Propofol (Diprivan -) 1,000,000 mcg in 100 mls @ 2.507 mls/hr IVPB TITR HIEN; Protocol Last Titration: 05/20/18 21:32 Dose: 10 mcg/kg/min, 5.013 mls/hr Piperacillin Sod/Tazobactam (Sod 3.375 gm/ Dextrose) 50 mls @ 100 mls/hr IVPB Q8H-IV [facility]EN; Protocol Last Admin: 05/21/18 02:12 Dose: 100 mls/hr Vancomycin HCl (Vancomycin (Pre-Docked)) 1,000 mg in 250 mls @ 200 mls/hr IVPB Q24H [facility]; Protocol Last Admin: 05/20/18 11:55 Dose: 200 mls/hr Insulin Human Regular 100 (units/ Sodium Chloride) 100 mls @ 7.73 mls/hr IVPB TITR HIEN; Protocol Last Titration: 05/20/18 18:46 Dose: 0.05 units/kg/hr, 3.86 mls/hr Labetalol HCl 200 mg/ (Labetalol HCl 100 mg) 300 mg PO TID [facility]EN Last Admin: 05/21/18 06:15 Dose: 300 mg Levetiracetam (Keppra Injection -) 500 mg IVPB BID [facility] Last Admin: 05/20/18 21:31 Dose: 500 mg Lisinopril (Prinivil) 20 mg PO DAILY [facility] Last Admin: 05/20/18 10:23 Dose: 20 mg Ondansetron HCl (Zofran Injection) 4 mg IVPUSH Q6H PRN PRN Reason: NAUSEA AND/OR VOMITING Last Admin: 05/11/18 19:00 Dose: 4 mg Pantoprazole Sodium (Protonix Iv) 40 mg IVPUSH DAILY [facility] Last Admin: 05/20/18 10:23 Dose: 40 mg - Objective Vital Signs: Vital Signs Temperature 100.6 F H 05/21/18 06:00 Pulse Rate 99 H 05/21/18 06:00 Respiratory Rate 18 05/21/18 06:16 Blood Pressure 124/78 05/21/18 06:00 O2 Sat by Pulse Oximetry (%) 100 05/20/18 19:41 Constitutional: Yes: Well Nourished, No Distress, Calm Cardiovascular: Yes: Regular Rate and Rhythm Respiratory: Yes: Mechanically Ventilated Gastrointestinal: Yes: Normal Bowel Sounds, Soft Genitourinary: Yes: Smith Present Edema: No Peripheral Pulses WNL: Yes Neurological: Yes: Other (sedated) Labs: CBC, BMP 05/21/18 05:30 05/21/18 05:30 INR, PTT INR 1.06 (0.83-1.09) 05/10/18 16:15 Problem List - Problems (1) QI (acute kidney injury) Assessment/Plan: -continues with hypernatremia, cont to monitor -Nephrology on board -Cr stable -Kidney US showed no hydronephrosis or stones b/l Code(s): N17.9 - ACUTE KIDNEY FAILURE, UNSPECIFIED (2) Diabetes Assessment/Plan: -A1c at 7.8 -BGM QID -On Insulin drip -Tube feed glucerna -RD on board Code(s): E11.9 - TYPE 2 DIABETES MELLITUS WITHOUT COMPLICATIONS (3) HTN (hypertension) Assessment/Plan: -On Labetalol, lisinopril and amlodipine Code(s): I10 - ESSENTIAL (PRIMARY) HYPERTENSION (4) Hypernatremia Assessment/Plan: -nephrology on board -2/2 Decadron -cont monitor Code(s): E87.0 - HYPEROSMOLALITY AND HYPERNATREMIA (5) Intracranial bleed Code(s): I62.9 - NONTRAUMATIC INTRACRANIAL HEMORRHAGE, UNSPECIFIED (6) Respiratory failure Assessment/Plan: -Pulmonary on board -failed weaning trials so far -Remains intubated and on mechanical vent -Bronchodilators -IV abx -Daily ABG Code(s): J96.90 - RESPIRATORY FAILURE, UNSP, UNSP W HYPOXIA OR HYPERCAPNIA (7) S/P craniotomy Assessment/Plan: -Neurosurgery on board -On decadron Code(s): Z98.890 - OTHER SPECIFIED POSTPROCEDURAL STATES (8) Sepsis Assessment/Plan: -Cultures: Microbiology 05/15/18 19:45 Blood - Peripheral Venous Blood Culture - Final NO GROWTH AFTER 5 DAYS INCUBATION 05/15/18 19:35 Blood - Peripheral Venous Blood Culture - Final NO GROWTH AFTER 5 DAYS INCUBATION 05/15/18 19:15 Urine - Urine Smith Urine Culture - Final Enterococcus Faecalis 05/15/18 19:15 Sputum - Endotrachea Suction/Ventilator Gram Stain - Final 05/15/18 19:15 Sputum - Endotrachea Suction/Ventilator Sputum Culture - Final Mr S Aureus Klebsiella Pneumoniae Diphtheroid/Corynebacterium 05/13/18 10:45 Blood - Peripheral Venous Blood Culture - Final NO GROWTH AFTER 5 DAYS INCUBATION 05/13/18 11:00 Blood - Peripheral Venous Blood Culture - Final NO GROWTH AFTER 5 DAYS INCUBATION 05/15/18 19:15 Urine For Antigen Detection Legionella Antigen - Final 05/15/18 19:15 Urine For Antigen Detection Streptococcus pneumoniae Antigen (M - Final 05/13/18 12:30 Urine - Urine Smith Urine Culture - Final NO GROWTH OBTAINED -ID on board -IV Zosyn -febrile overnight Code(s): A41.9 - SEPSIS, UNSPECIFIED ORGANISM Assessment/Plan see problem list DVT prophylaxis Palliative care
[2018-05-21] MEDS ORDERED: PIPERACILLIN/TAZOBACTAM 3.375 GM VIAL IVPB ONE ×2 (09:09→18:53)
[2018-05-21] MEDS ORDERED: DEXTROSE 5%-WATER - 50 ML IVPB ONE ×2 (09:09→18:53)
[2018-05-21] MEDS: ASPIRIN COATED 81 MG TABLET.EC PO SCH (09:24)
[2018-05-21] MEDS: levETIRAcetam 500 MG/5 ML INJECTION VIAL IVPB SCH ×2 (09:24→21:15)
[2018-05-21] MEDS: amLODIPine BESYLATE 10 MG TABLET (FP) PO SCH (09:24)
[2018-05-21] MEDS: PANTOPRAZOLE SODIUM 40 MG VIAL IVPUSH SCH (09:24)
[2018-05-21] MEDS: DEXAMETHASONE 4 MG TABLET (FP) NGT SCH ×2 (09:24→21:16)
--- NOTE | 2018-05-21 10:40 | PN ---
Progress Note, Physician History of Present Illness: Awake, poorly responsive on ventilator Low grade fever WBC slightly elevated 10.3 Sputum c/s mixed, including MRSA Urine pneumococcal ag + Azotemia improved - Current Medication List Current Medications: Active Medications Acetaminophen (Tylenol -) 650 mg PO Q6H PRN PRN Reason: FEVER Last Admin: 05/21/18 06:15 Dose: 650 mg Amlodipine Besylate (Norvasc -) 10 mg PO DAILY [facility] Last Admin: 05/21/18 09:24 Dose: 10 mg Aspirin (Ecotrin -) 81 mg PO DAILY [facility] Last Admin: 05/21/18 09:24 Dose: 81 mg Atorvastatin Calcium (Lipitor -) 80 mg PO HS [facility] Last Admin: 05/20/18 21:31 Dose: 80 mg Dexamethasone (Decadron -) 2 mg NGT BID [facility] Last Admin: 05/21/18 09:24 Dose: 2 mg Docusate Sodium (Colace -) 100 mg PO TID [facility] Last Admin: 05/21/18 06:15 Dose: 100 mg Heparin Sodium (Porcine) (Heparin -) 5,000 unit SQ TID [facility] Last Admin: 05/21/18 06:16 Dose: 5,000 unit Propofol (Diprivan -) 1,000,000 mcg in 100 mls @ 2.507 mls/hr IVPB TITR [facility]; Protocol Last Titration: 05/20/18 21:32 Dose: 10 mcg/kg/min, 5.013 mls/hr Piperacillin Sod/Tazobactam (Sod 3.375 gm/ Dextrose) 50 mls @ 100 mls/hr IVPB Q8H-IV [facility]; Protocol Last Admin: 05/21/18 09:23 Dose: 100 mls/hr Vancomycin HCl (Vancomycin (Pre-Docked)) 1,000 mg in 250 mls @ 200 mls/hr IVPB Q24H [facility]; Protocol Last Admin: 05/20/18 11:55 Dose: 200 mls/hr Insulin Human Regular 100 (units/ Sodium Chloride) 100 mls @ 7.73 mls/hr IVPB TITR [facility]; Protocol Last Titration: 05/20/18 18:46 Dose: 0.05 units/kg/hr, 3.86 mls/hr Labetalol HCl 200 mg/ (Labetalol HCl 100 mg) 300 mg PO TID [facility] Last Admin: 05/21/18 06:15 Dose: 300 mg Levetiracetam (Keppra Injection -) 500 mg IVPB BID [facility] Last Admin: 05/21/18 09:24 Dose: 500 mg Lisinopril (Prinivil) 20 mg PO DAILY [facility] Last Admin: 05/20/18 10:23 Dose: 20 mg Ondansetron HCl (Zofran Injection) 4 mg IVPUSH Q6H PRN PRN Reason: NAUSEA AND/OR VOMITING Last Admin: 05/11/18 19:00 Dose: 4 mg Pantoprazole Sodium (Protonix Iv) 40 mg IVPUSH DAILY [facility] Last Admin: 05/21/18 09:24 Dose: 40 mg - Objective Vital Signs: Vital Signs Temperature 100.6 F H 05/21/18 06:00 Pulse Rate 99 H 05/21/18 06:00 Respiratory Rate 37 H 05/21/18 08:45 Blood Pressure 144/95 05/21/18 08:00 O2 Sat by Pulse Oximetry (%) 100 05/20/18 19:41 Constitutional: Yes: No Distress Eyes: Yes: Conjunctiva Clear HENT: Yes: Other (Surgical wound healing well No erythema/ drainage) Cardiovascular: Yes: Regular Rate and Rhythm, S1, S2 Respiratory: Yes: Mechanically Ventilated Gastrointestinal: Yes: Normal Bowel Sounds, Soft. No: Tenderness Edema: No Labs: CBC, BMP 05/21/18 05:30 05/21/18 05:30 INR, PTT INR 1.06 (0.83-1.09) 05/10/18 16:15 Assessment/Plan LLL pneumonia + sputum c/s MRSA/ mixed + pneumococcal ag Respiratory failure S/P craniotomy S/A AVR Azotemia improved Uncontrolled DM Continue zosyn/ vancomycin Contact precautions MRSA
[2018-05-21] MEDS: VANCOMYCIN 1 GRAM (PRE-DOCKED) 1,000 MG/250 ML BAG IVPB SCH (10:46)
--- NOTE | 2018-05-21 10:53 | PN ---
Teaching Attending Note Name of Resident: Sunny Alvarado ATTENDING PHYSICIAN STATEMENT I saw and evaluated the patient. I reviewed the resident's note and discussed the case with the resident. I agree with the resident's findings and plan as documented. SUBJECTIVE: Patient seen and examined at bedside. Remains intubated. Off sedation and eyes are open. Spontaneous movements. No pressors. CXR: Rotated, no gross change OBJECTIVE: Intake & Output 05/18/18 05/19/18 05/20/18 05/21/18 23:59 23:59 23:59 23:59 Intake Total 4275.8 4050.4 2543 2068 Output Total 2850 3000 2000 400 Balance 1425.8 1050.4 543 1668 Weight 179 lb 12.8 oz 170 lb 7 oz 170 lb 14.4 oz 173 lb 7 oz Last Vital Signs Temp Pulse Resp BP Pulse Ox 100.6 F H 99 H 37 H 144/95 100 05/21/18 06:00 05/21/18 06:00 05/21/18 08:45 05/21/18 08:00 05/20/18 19:41 Active Medications Acetaminophen (Tylenol -) 650 mg PO Q6H PRN PRN Reason: FEVER Last Admin: 05/21/18 06:15 Dose: 650 mg Amlodipine Besylate (Norvasc -) 10 mg PO DAILY [facility] Last Admin: 05/21/18 09:24 Dose: 10 mg Aspirin (Ecotrin -) 81 mg PO DAILY [facility] Last Admin: 05/21/18 09:24 Dose: 81 mg Atorvastatin Calcium (Lipitor -) 80 mg PO HS [facility] Last Admin: 05/20/18 21:31 Dose: 80 mg Dexamethasone (Decadron -) 2 mg NGT BID [facility] Last Admin: 05/21/18 09:24 Dose: 2 mg Docusate Sodium (Colace -) 100 mg PO TID [facility] Last Admin: 05/21/18 06:15 Dose: 100 mg Heparin Sodium (Porcine) (Heparin -) 5,000 unit SQ TID [facility] Last Admin: 05/21/18 06:16 Dose: 5,000 unit Propofol (Diprivan -) 1,000,000 mcg in 100 mls @ 2.507 mls/hr IVPB TITR [facility]; Protocol Last Titration: 05/20/18 21:32 Dose: 10 mcg/kg/min, 5.013 mls/hr Piperacillin Sod/Tazobactam (Sod 3.375 gm/ Dextrose) 50 mls @ 100 mls/hr IVPB Q8H-IV [facility]; Protocol Last Admin: 05/21/18 09:23 Dose: 100 mls/hr Vancomycin HCl (Vancomycin (Pre-Docked)) 1,000 mg in 250 mls @ 200 mls/hr IVPB Q24H [facility]; Protocol Last Admin: 05/21/18 10:46 Dose: 200 mls/hr Insulin Human Regular 100 (units/ Sodium Chloride) 100 mls @ 7.73 mls/hr IVPB TITR [facility]; Protocol Last Titration: 05/20/18 18:46 Dose: 0.05 units/kg/hr, 3.86 mls/hr Labetalol HCl 200 mg/ (Labetalol HCl 100 mg) 300 mg PO TID [facility] Last Admin: 05/21/18 06:15 Dose: 300 mg Levetiracetam (Keppra Injection -) 500 mg IVPB BID [facility] Last Admin: 05/21/18 09:24 Dose: 500 mg Lisinopril (Prinivil) 20 mg PO DAILY [facility] Last Admin: 05/20/18 10:23 Dose: 20 mg Ondansetron HCl (Zofran Injection) 4 mg IVPUSH Q6H PRN PRN Reason: NAUSEA AND/OR VOMITING Last Admin: 05/11/18 19:00 Dose: 4 mg Pantoprazole Sodium (Protonix Iv) 40 mg IVPUSH DAILY [facility] Last Admin: 05/21/18 09:24 Dose: 40 mg GENERAL: Intubated, awake, not following commands EYES: PERRL, sclera anicteric, conjunctiva clear. ENT: moist mucous membranes. NECK: Trachea midline. LUNGS: Vented, coarse breath sounds Left > Right, no wheezes. HEART: Regular rate and rhythm, S1, S2 without murmur, rub or gallop. ABDOMEN: Soft, nontender, nondistended, normoactive bowel sounds, no guarding, no rebound, no hepatosplenomegaly, no masses. EXTREMITIES: 2+ pulses, warm, well-perfused, no edema. NEUROLOGICAL: awake, not following commands PSYCH: sedated SKIN: Warm, dry, normal turgor, no rashes or lesions noted Laboratory Results - last 24 hr 05/20/18 05/20/18 05/20/18 11:20 12:18 13:28 WBC RBC Hgb Hct MCV MCH MCHC RDW Plt Count MPV Absolute Neuts (auto) Neutrophils % Lymphocytes % Monocytes % Eosinophils % Basophils % Nucleated RBC % Anticoagulation Therapy Puncture Site ABG pH ABG pCO2 at Pt Temp ABG pO2 at Pt Temp ABG HCO3 ABG O2 Sat (Measured) ABG O2 Content ABG Base Excess Oziel Test O2 Delivery Device Oxygen Flow Rate Vent Mode Vent Rate Mechanical Rate PEEP Pressure Support Vent Sodium Potassium Chloride Carbon Dioxide Anion Gap BUN Creatinine Creat Clearance w eGFR POC Glucometer 242.25211 209.87680 201.70320 Random Glucose Lactic Acid Calcium Phosphorus Magnesium Total Bilirubin AST ALT Alkaline Phosphatase Troponin I Total Protein Albumin 05/20/18 05/20/18 05/20/18 14:32 15:35 16:35 WBC RBC Hgb Hct MCV MCH MCHC RDW Plt Count MPV Absolute Neuts (auto) Neutrophils % Lymphocytes % Monocytes % Eosinophils % Basophils % Nucleated RBC % Anticoagulation Therapy Puncture Site ABG pH ABG pCO2 at Pt Temp ABG pO2 at Pt Temp ABG HCO3 ABG O2 Sat (Measured) ABG O2 Content ABG Base Excess Oziel Test O2 Delivery Device Oxygen Flow Rate Vent Mode Vent Rate Mechanical Rate PEEP Pressure Support Vent Sodium Potassium Chloride Carbon Dioxide Anion Gap BUN Creatinine Creat Clearance w eGFR POC Glucometer 173.21792 145.59576 190.44401 Random Glucose Lactic Acid Calcium Phosphorus Magnesium Total Bilirubin AST ALT Alkaline Phosphatase Troponin I Total Protein Albumin 05/20/18 05/20/18 05/20/18 17:36 18:44 19:58 WBC RBC Hgb Hct MCV MCH MCHC RDW Plt Count MPV Absolute Neuts (auto) Neutrophils % Lymphocytes % Monocytes % Eosinophils % Basophils % Nucleated RBC % Anticoagulation Therapy Puncture Site ABG pH ABG pCO2 at Pt Temp ABG pO2 at Pt Temp ABG HCO3 ABG O2 Sat (Measured) ABG O2 Content ABG Base Excess Oziel Test O2 Delivery Device Oxygen Flow Rate Vent Mode Vent Rate Mechanical Rate PEEP Pressure Support Vent Sodium Potassium Chloride Carbon Dioxide Anion Gap BUN Creatinine Creat Clearance w eGFR POC Glucometer 124.89414 140.11382 143.28107 Random Glucose Lactic Acid Calcium Phosphorus Magnesium Total Bilirubin AST ALT Alkaline Phosphatase Troponin I Total Protein Albumin 11/10/18 11/10/18 11/10/18 21:08 22:03 23:12 WBC RBC Hgb Hct MCV MCH MCHC RDW Plt Count MPV Absolute Neuts (auto) Neutrophils % Lymphocytes % Monocytes % Eosinophils % Basophils % Nucleated RBC % Anticoagulation Therapy Puncture Site ABG pH ABG pCO2 at Pt Temp ABG pO2 at Pt Temp ABG HCO3 ABG O2 Sat (Measured) ABG O2 Content ABG Base Excess Oziel Test O2 Delivery Device Oxygen Flow Rate Vent Mode Vent Rate Mechanical Rate PEEP Pressure Support Vent Sodium Potassium Chloride Carbon Dioxide Anion Gap BUN Creatinine Creat Clearance w eGFR POC Glucometer 148.90469 144.44105 150.80969 Random Glucose Lactic Acid Calcium Phosphorus Magnesium Total Bilirubin AST ALT Alkaline Phosphatase Troponin I Total Protein Albumin 05/21/18 05/21/18 05/21/18 00:02 02:09 04:00 WBC RBC Hgb Hct MCV MCH MCHC RDW Plt Count MPV Absolute Neuts (auto) Neutrophils % Lymphocytes % Monocytes % Eosinophils % Basophils % Nucleated RBC % Anticoagulation Therapy Puncture Site ABG pH ABG pCO2 at Pt Temp ABG pO2 at Pt Temp ABG HCO3 ABG O2 Sat (Measured) ABG O2 Content ABG Base Excess Oziel Test O2 Delivery Device Oxygen Flow Rate Vent Mode Vent Rate Mechanical Rate PEEP Pressure Support Vent Sodium Potassium Chloride Carbon Dioxide Anion Gap BUN Creatinine Creat Clearance w eGFR POC Glucometer 150.74141 168.57824 181.53539 Random Glucose Lactic Acid Calcium Phosphorus Magnesium Total Bilirubin AST ALT Alkaline Phosphatase Troponin I Total Protein Albumin 05/21/18 05/21/18 05/21/18 05:29 05:30 05:30 WBC 10.3 H RBC 3.67 L Hgb 10.3 L Hct 31.1 L MCV 84.8 MCH 28.0 MCHC 33.0 RDW 14.0 Plt Count 102 L MPV 11.2 H Absolute Neuts (auto) 8.7 H Neutrophils % 84.8 H Lymphocytes % 9.5 D Monocytes % 5.4 Eosinophils % 0.2 D Basophils % 0.1 Nucleated RBC % 0 Anticoagulation Therapy Puncture Site ABG pH ABG pCO2 at Pt Temp ABG pO2 at Pt Temp ABG HCO3 ABG O2 Sat (Measured) ABG O2 Content ABG Base Excess Oziel Test O2 Delivery Device Oxygen Flow Rate Vent Mode Vent Rate Mechanical Rate PEEP Pressure Support Vent Sodium 150 H Potassium 4.7 Chloride 113 H Carbon Dioxide 30 Anion Gap 7 L BUN 58 H Creatinine 1.2 Creat Clearance w eGFR > 60 POC Glucometer 173.27174 Random Glucose 169 H Lactic Acid Calcium 7.8 L Phosphorus 4.2 Magnesium 2.6 H Total Bilirubin 0.4 AST 30 ALT 31 Alkaline Phosphatase 110 Troponin I 0.08 H Total Protein 5.2 L Albumin 2.0 L 05/21/18 05/21/18 05/21/18 05:30 05:30 05:45 WBC RBC Hgb Hct MCV MCH MCHC RDW Plt Count MPV Absolute Neuts (auto) Neutrophils % Lymphocytes % Monocytes % Eosinophils % Basophils % Nucleated RBC % Anticoagulation Therapy No Result Required. Puncture Site Right brachial ABG pH 7.48 H ABG pCO2 at Pt Temp 40.4 ABG pO2 at Pt Temp 71.3 L D ABG HCO3 29.7 H ABG O2 Sat (Measured) 93.9 ABG O2 Content 13.0 L ABG Base Excess 6.0 H Oziel Test Positive O2 Delivery Device Mech vent Oxygen Flow Rate 40% Vent Mode A/c Vent Rate 16 Mechanical Rate Yes PEEP 5.0 Pressure Support Vent 450 Sodium Potassium Chloride Carbon Dioxide Anion Gap BUN Creatinine Creat Clearance w eGFR POC Glucometer 186.92137 Random Glucose Lactic Acid 1.3 Calcium Phosphorus Magnesium Total Bilirubin AST ALT Alkaline Phosphatase Troponin I Total Protein Albumin ASSESSMENT/PLAN: Acute Respiratory Failure (3rd intubation) POD#9 Left frontal craniotomy, excision of thalamic hermorrhagic mass AFIB Recent hemorrhagic CVA DM Maintain off sedation vacation to further assess mental status Enteral feeds BP control Monitor off IVF ABX coverage Monitor CXR Keppra Head of bed: 30 degrees. PPI Wean Decadron May need Trach SBTs as tolerated: suboptimal weaning parameters ICU monitoring Dr Gatica Critical Care patient: Yes Total Critical Care Time (in minutes): 36 Critical Care Statement: The care of this patient involved high complexity decision making to prevent further life threatening deterioration of the patient 's condition and/or to evaluate & treat vital organ system(s) failure or risk of failure.
--- NOTE | 2018-05-21 15:14 | CON.CARD ---
Consult Consult Specialty:: Cardiology Reason for Consultation:: Elevated BP - History of Present Illness History of Present Illness: This is a 67 year old male with DM, neuropathy, recent brain bleed, history of AFIB, s/p crainotomy to remove the clot. Remains intubated on a ventilator. Does not follow commands. BP now 135/70 mmHg - Alcohol/Substance Use Hx Alcohol Use: No - Smoking History Smoking history: Never smoked Have you smoked in the past 12 months: No Home Medications - Allergies Allergies/Adverse Reactions: Allergies Allergy/AdvReac Type Severity Reaction Status Date / Time No Known Drug Allergies Allergy Verified 05/10/18 17:18 - Home Medications Home Medications: Ambulatory Orders Acetaminophen 650 mg PO Q6H PRN 05/10/18 Albuterol 2.5/Ipratropium 0.5 [Duoneb -] 1 neb IH QID 05/10/18 Amlodipine Besylate [Norvasc -] 10 mg PO DAILY 05/10/18 Aspirin [Aspirin EC] 81 mg PO DAILY 05/10/18 Atorvastatin Ca [Lipitor] 80 mg PO HS 05/10/18 Calcium Carbonate [Calcium Antacid] 300 mg PO Q6H PRN 05/10/18 Chlorhexidine Gluconate [Peridex -] 15 ml MM BID 05/10/18 Docusate Sodium [Colace] 100 mg PO TID 05/10/18 Ferrous Sulfate 325 mg PO BID 05/10/18 Furosemide [Lasix] 40 mg PO DAILY 05/10/18 Insulin Glargine,Hum.rec.anlog [Lantus Solostar] 40 unit SQ HS 05/10/18 Insulin Lispro [Humalog] 0 unit SQ TIDCM PRN 05/10/18 Labetalol HCl 300 mg PO TID 05/10/18 Lisinopril [Prinivil] 20 mg PO DAILY 05/10/18 Magnesium Hydroxide [Milk of Magnesia] 30 ml PO HS PRN 05/10/18 Melatonin 3 mg PO HS PRN 05/10/18 Nicotine [Nicotine Patch 7 mg/24 hr] 1 each TD DAILY 05/10/18 Oxycodone HCl 5 mg PO Q4H PRN 05/10/18 Pantoprazole Sodium 40 mg PO DAILY 05/10/18 Polyethylene Glycol 3350 [Miralax (For Daily Use) -] 17 gm PO DAILY 05/10/18 Pregabalin [Lyrica -] 50 mg PO DAILY 05/10/18 Simethicone 80 mg PO QID PRN 05/10/18 Sodium Chloride [Saline Mist] 2 sprays NS BID 05/10/18 Tramadol HCl 50 mg PO Q6H PRN 05/10/18 Zinc Oxide 20% Topical Oint 0 gm NR BID 05/10/18 Review of Systems Findings/Remarks: As per HPI Vital Signs: Vital Signs Temperature 99.5 F 05/21/18 14:00 Pulse Rate 96 H 05/21/18 14:00 Respiratory Rate 18 05/21/18 14:00 Blood Pressure 136/75 05/21/18 14:00 O2 Sat by Pulse Oximetry (%) 100 05/21/18 10:30 Constitutional: Yes: No Distress HENT: Yes: WNL Neck: Yes: WNL Respiratory: Yes: Mechanically Ventilated Gastrointestinal: Yes: Soft Cardiovascular: Yes: Regular Rate and Rhythm (NL S1S2) Extremities: Yes: WNL Edema: No Neurological: Yes: Other (Intubated Unresponsive) - Other Data Labs, Other Data: CBC, BMP 05/21/18 05:30 05/21/18 05:30 INR, PTT INR 1.06 (0.83-1.09) 05/10/18 16:15 Troponin, BNP 05/21/18 05:30 Troponin I 0.08 H Troponin, BNP 05/21/18 05:30 Troponin I 0.08 H Assessment/Plan 67 year old male with DM, neuropathy, recent brain bleed, history of AFIB, s/p crainotomy to remove the clot. Remains intubated on a ventilator. Does not follow commands. BP now 135/70 mmHg Continue: Lisinopril 20 mg PO daily Labetolol 300 PO TID Amlodipine 10 mg PO daily Continue ASA/Statin
--- NOTE | 2018-05-21 15:27 | PN ---
Physical Exam: SUBJECTIVE: Patient seen and examined patinet off sedation, awake PTwas taken on cpap. pt become tacyhpnic, tachycardic and started using acesory muscles. Venti setting change to AC mode. RR 39 we will discuss family regarding tracheostomy OBJECTIVE: Vital Signs Period Temp Pulse Resp BP Sys/Goel Pulse Ox Last 24 Hr 99 F-100.6 F 96-109 16-37 105-144/68-95 98-100 GENERAL: Intubated, awake, not following commands ENT: moist mucous membranes. NECK: Trachea midline. LUNGS: Vented, coarse breath sounds Left > Right, no wheezes. HEART: Regular rate and rhythm, S1, S2 without murmur, rub or gallop. ABDOMEN: Soft, nontender, nondistended, normoactive bowel sounds, EXTREMITIES: warm, well-perfused, no edema. NEUROLOGICAL: awake, not following commands SKIN: Warm, dry, Laboratory Results - last 24 hr 05/20/18 05/20/18 05/20/18 13:28 14:32 15:35 WBC RBC Hgb Hct MCV MCH MCHC RDW Plt Count MPV Absolute Neuts (auto) Neutrophils % Lymphocytes % Monocytes % Eosinophils % Basophils % Nucleated RBC % Anticoagulation Therapy Puncture Site ABG pH ABG pCO2 at Pt Temp ABG pO2 at Pt Temp ABG HCO3 ABG O2 Sat (Measured) ABG O2 Content ABG Base Excess Oziel Test O2 Delivery Device Oxygen Flow Rate Vent Mode Vent Rate Mechanical Rate PEEP Pressure Support Vent Sodium Potassium Chloride Carbon Dioxide Anion Gap BUN Creatinine Creat Clearance w eGFR POC Glucometer 201.69980 173.79427 145.60670 Random Glucose Lactic Acid Calcium Phosphorus Magnesium Total Bilirubin AST ALT Alkaline Phosphatase Troponin I Total Protein Albumin 05/20/18 05/20/18 05/20/18 16:35 17:36 18:44 WBC RBC Hgb Hct MCV MCH MCHC RDW Plt Count MPV Absolute Neuts (auto) Neutrophils % Lymphocytes % Monocytes % Eosinophils % Basophils % Nucleated RBC % Anticoagulation Therapy Puncture Site ABG pH ABG pCO2 at Pt Temp ABG pO2 at Pt Temp ABG HCO3 ABG O2 Sat (Measured) ABG O2 Content ABG Base Excess Oziel Test O2 Delivery Device Oxygen Flow Rate Vent Mode Vent Rate Mechanical Rate PEEP Pressure Support Vent Sodium Potassium Chloride Carbon Dioxide Anion Gap BUN Creatinine Creat Clearance w eGFR POC Glucometer 190.52383 124.19575 140.58593 Random Glucose Lactic Acid Calcium Phosphorus Magnesium Total Bilirubin AST ALT Alkaline Phosphatase Troponin I Total Protein Albumin 05/20/18 05/20/18 05/20/18 19:58 21:08 22:03 WBC RBC Hgb Hct MCV MCH MCHC RDW Plt Count MPV Absolute Neuts (auto) Neutrophils % Lymphocytes % Monocytes % Eosinophils % Basophils % Nucleated RBC % Anticoagulation Therapy Puncture Site ABG pH ABG pCO2 at Pt Temp ABG pO2 at Pt Temp ABG HCO3 ABG O2 Sat (Measured) ABG O2 Content ABG Base Excess Oziel Test O2 Delivery Device Oxygen Flow Rate Vent Mode Vent Rate Mechanical Rate PEEP Pressure Support Vent Sodium Potassium Chloride Carbon Dioxide Anion Gap BUN Creatinine Creat Clearance w eGFR POC Glucometer 143.93247 148.07033 144.51755 Random Glucose Lactic Acid Calcium Phosphorus Magnesium Total Bilirubin AST ALT Alkaline Phosphatase Troponin I Total Protein Albumin 05/20/18 05/21/18 05/21/18 23:12 00:02 02:09 WBC RBC Hgb Hct MCV MCH MCHC RDW Plt Count MPV Absolute Neuts (auto) Neutrophils % Lymphocytes % Monocytes % Eosinophils % Basophils % Nucleated RBC % Anticoagulation Therapy Puncture Site ABG pH ABG pCO2 at Pt Temp ABG pO2 at Pt Temp ABG HCO3 ABG O2 Sat (Measured) ABG O2 Content ABG Base Excess Oziel Test O2 Delivery Device Oxygen Flow Rate Vent Mode Vent Rate Mechanical Rate PEEP Pressure Support Vent Sodium Potassium Chloride Carbon Dioxide Anion Gap BUN Creatinine Creat Clearance w eGFR POC Glucometer 150.95850 150.75747 168.61809 Random Glucose Lactic Acid Calcium Phosphorus Magnesium Total Bilirubin AST ALT Alkaline Phosphatase Troponin I Total Protein Albumin 05/21/18 05/21/18 05/21/18 04:00 05:29 05:30 WBC 10.3 H RBC 3.67 L Hgb 10.3 L Hct 31.1 L MCV 84.8 MCH 28.0 MCHC 33.0 RDW 14.0 Plt Count 102 L MPV 11.2 H Absolute Neuts (auto) 8.7 H Neutrophils % 84.8 H Lymphocytes % 9.5 D Monocytes % 5.4 Eosinophils % 0.2 D Basophils % 0.1 Nucleated RBC % 0 Anticoagulation Therapy Puncture Site ABG pH ABG pCO2 at Pt Temp ABG pO2 at Pt Temp ABG HCO3 ABG O2 Sat (Measured) ABG O2 Content ABG Base Excess Oziel Test O2 Delivery Device Oxygen Flow Rate Vent Mode Vent Rate Mechanical Rate PEEP Pressure Support Vent Sodium Potassium Chloride Carbon Dioxide Anion Gap BUN Creatinine Creat Clearance w eGFR POC Glucometer 181.35628 173.44897 Random Glucose Lactic Acid Calcium Phosphorus Magnesium Total Bilirubin AST ALT Alkaline Phosphatase Troponin I Total Protein Albumin 05/21/18 05/21/18 05/21/18 05:30 05:30 05:30 WBC RBC Hgb Hct MCV MCH MCHC RDW Plt Count MPV Absolute Neuts (auto) Neutrophils % Lymphocytes % Monocytes % Eosinophils % Basophils % Nucleated RBC % Anticoagulation Therapy No Result Required. Puncture Site Right brachial ABG pH 7.48 H ABG pCO2 at Pt Temp 40.4 ABG pO2 at Pt Temp 71.3 L D ABG HCO3 29.7 H ABG O2 Sat (Measured) 93.9 ABG O2 Content 13.0 L ABG Base Excess 6.0 H Oziel Test Positive O2 Delivery Device Mech vent Oxygen Flow Rate 40% Vent Mode A/c Vent Rate 16 Mechanical Rate Yes PEEP 5.0 Pressure Support Vent 450 Sodium 150 H Potassium 4.7 Chloride 113 H Carbon Dioxide 30 Anion Gap 7 L BUN 58 H Creatinine 1.2 Creat Clearance w eGFR > 60 POC Glucometer Random Glucose 169 H Lactic Acid 1.3 Calcium 7.8 L Phosphorus 4.2 Magnesium 2.6 H Total Bilirubin 0.4 AST 30 ALT 31 Alkaline Phosphatase 110 Troponin I 0.08 H Total Protein 5.2 L Albumin 2.0 L 05/21/18 05:45 WBC RBC Hgb Hct MCV MCH MCHC RDW Plt Count MPV Absolute Neuts (auto) Neutrophils % Lymphocytes % Monocytes % Eosinophils % Basophils % Nucleated RBC % Anticoagulation Therapy Puncture Site ABG pH ABG pCO2 at Pt Temp ABG pO2 at Pt Temp ABG HCO3 ABG O2 Sat (Measured) ABG O2 Content ABG Base Excess Oziel Test O2 Delivery Device Oxygen Flow Rate Vent Mode Vent Rate Mechanical Rate PEEP Pressure Support Vent Sodium Potassium Chloride Carbon Dioxide Anion Gap BUN Creatinine Creat Clearance w eGFR POC Glucometer 186.32658 Random Glucose Lactic Acid Calcium Phosphorus Magnesium Total Bilirubin AST ALT Alkaline Phosphatase Troponin I Total Protein Albumin Active Medications Generic Name Dose Route Start Last Admin Trade Name Freq PRN Reason Stop Dose Admin Acetaminophen 650 mg 05/13/18 10:24 05/21/18 06:15 Tylenol - PO 650 mg Q6H PRN Administration FEVER Amlodipine Besylate 10 mg 05/13/18 10:00 05/21/18 09:24 Norvasc - PO 10 mg DAILY [facility] Administration Aspirin 81 mg 05/15/18 10:00 05/21/18 09:24 Ecotrin - PO 81 mg DAILY [facility] Administration Atorvastatin Calcium 80 mg 05/13/18 22:00 05/20/18 21:31 Lipitor - PO 80 mg HS [facility] Administration Dexamethasone 2 mg 05/19/18 22:00 05/21/18 09:24 Decadron - NGT 2 mg BID [facility] Administration Docusate Sodium 100 mg 05/11/18 22:00 05/21/18 06:15 Colace - PO 100 mg TID [facility] Administration Heparin Sodium (Porcine) 5,000 unit 05/19/18 06:00 05/21/18 06:16 Heparin - SQ 5,000 unit TID [facility] Administration Propofol 1,000,000 mcg in 100 mls @ 2.507 mls/hr 05/14/18 23:45 05/20/18 21: 32 Diprivan - IVPB 10 mcg/kg/min TITR [facility] 5.013 mls/hr Titration Protocol 5 MCG/KG/MIN Piperacillin Sod/Tazobactam 50 mls @ 100 mls/hr 05/15/18 18:00 05/21/18 09:23 Sod 3.375 gm/ Dextrose IVPB 100 mls/hr Q8H-IV [facility] Administration Protocol Vancomycin HCl 1,000 mg in 250 mls @ 200 mls/hr 05/19/18 11:30 05/21/18 10:46 Vancomycin (Pre-Docked) IVPB 200 mls/hr Q24H [facility] Administration Protocol Insulin Human Regular 100 100 mls @ 7.73 mls/hr 05/20/18 09:30 05/20/18 18:46 units/ Sodium Chloride IVPB 0.05 units/kg/hr TITR [facility] 3.86 mls/hr Titration Protocol 0.1 UNITS/KG/HR Labetalol HCl 200 mg/ 300 mg 05/13/18 14:00 05/21/18 06:15 Labetalol HCl 100 mg PO 300 mg TID [facility] Administration Levetiracetam 500 mg 05/11/18 22:00 05/21/18 09:24 Keppra Injection - IVPB 500 mg BID [facility] Administration Lisinopril 20 mg 05/13/18 10:00 05/20/18 10:23 Prinivil PO 20 mg DAILY [facility] Administration Ondansetron HCl 4 mg 05/11/18 17:57 05/11/18 19:00 Zofran Injection IVPUSH 4 mg Q6H PRN Administration NAUSEA AND/OR VOMITING Pantoprazole Sodium 40 mg 05/12/18 10:00 05/21/18 09:24 Protonix Iv IVPUSH 40 mg DAILY [facility] Administration ASSESSMENT/PLAN: Acute Respiratory Failure (3rd intubation) POD#9 Left frontal craniotomy, excision of thalamic hermorrhagic mass AFIB Recent hemorrhagic CVA DM PLan sedation vacation--- if becomes agiatated and starts fighting vent then start sedation Keep head end elevated Failed extubation trial-- will discuss family for tracheostomy. Monitor vitals Monitor intake output Increase free water in tube feed. Cardiac montoring ABX coverage Keppra PPI taper Decadron ICU monitoring Visit type - Emergency Visit Emergency Visit: Yes ED Registration Date: 05/10/18 Care time: The patient presented to the Emergency Department on the above date and was hospitalized for further evaluation of their emergent condition. - New Patient This patient is new to me today: No - Critical Care Critical Care patient: Yes Total Critical Care Time (in minutes): 45 Critical Care Statement: The care of this patient involved high complexity decision making to prevent further life threatening deterioration of the patient 's condition and/or to evaluate & treat vital organ system(s) failure or risk of failure.
--- NOTE | 2018-05-21 16:37 | PN ---
Progress Note, Physician History of Present Illness: Pt seen and examined at bedside. He remains in the ICU. He remain intubated. - Current Medication List Current Medications: Active Medications Acetaminophen (Tylenol -) 650 mg PO Q6H PRN PRN Reason: FEVER Last Admin: 05/21/18 06:15 Dose: 650 mg Amlodipine Besylate (Norvasc -) 10 mg PO DAILY [facility] Last Admin: 05/21/18 09:24 Dose: 10 mg Aspirin (Ecotrin -) 81 mg PO DAILY [facility] Last Admin: 05/21/18 09:24 Dose: 81 mg Atorvastatin Calcium (Lipitor -) 80 mg PO HS [facility] Last Admin: 05/20/18 21:31 Dose: 80 mg Dexamethasone (Decadron -) 2 mg NGT BID [facility] Last Admin: 05/21/18 09:24 Dose: 2 mg Docusate Sodium (Colace -) 100 mg PO TID [facility] Last Admin: 05/21/18 14:00 Dose: 100 mg Heparin Sodium (Porcine) (Heparin -) 5,000 unit SQ TID [facility] Last Admin: 05/21/18 15:05 Dose: 5,000 unit Propofol (Diprivan -) 1,000,000 mcg in 100 mls @ 2.507 mls/hr IVPB TITR [facility]; Protocol Last Titration: 05/20/18 21:32 Dose: 10 mcg/kg/min, 5.013 mls/hr Piperacillin Sod/Tazobactam (Sod 3.375 gm/ Dextrose) 50 mls @ 100 mls/hr IVPB Q8H-IV [facility]; Protocol Last Admin: 05/21/18 09:23 Dose: 100 mls/hr Vancomycin HCl (Vancomycin (Pre-Docked)) 1,000 mg in 250 mls @ 200 mls/hr IVPB Q24H [facility]; Protocol Last Admin: 05/21/18 10:46 Dose: 200 mls/hr Insulin Human Regular 100 (units/ Sodium Chloride) 100 mls @ 7.73 mls/hr IVPB TITR [facility]; Protocol Last Titration: 05/20/18 18:46 Dose: 0.05 units/kg/hr, 3.86 mls/hr Labetalol HCl 200 mg/ (Labetalol HCl 100 mg) 300 mg PO TID [facility] Last Admin: 05/21/18 14:50 Dose: 300 mg Levetiracetam (Keppra Injection -) 500 mg IVPB BID [facility] Last Admin: 05/21/18 09:24 Dose: 500 mg Lisinopril (Prinivil) 20 mg PO DAILY [facility] Last Admin: 05/20/18 10:23 Dose: 20 mg Ondansetron HCl (Zofran Injection) 4 mg IVPUSH Q6H PRN PRN Reason: NAUSEA AND/OR VOMITING Last Admin: 05/11/18 19:00 Dose: 4 mg Pantoprazole Sodium (Protonix Iv) 40 mg IVPUSH DAILY [facility] Last Admin: 05/21/18 09:24 Dose: 40 mg - Objective Vital Signs: Vital Signs Temperature 99.5 F 05/21/18 14:00 Pulse Rate 105 H 05/21/18 16:00 Respiratory Rate 18 05/21/18 16:00 Blood Pressure 136/79 05/21/18 16:00 O2 Sat by Pulse Oximetry (%) 100 05/21/18 10:30 Constitutional: Yes: Calm Eyes: Yes: Conjunctiva Clear Neck: Yes: Supple Cardiovascular: Yes: S1, S2 Respiratory: Yes: Mechanically Ventilated Gastrointestinal: Yes: Soft Genitourinary: Yes: Smith Present Edema: No Neurological: Yes: Lethargy Labs: CBC, BMP 05/21/18 05:30 05/21/18 05:30 INR, PTT INR 1.06 (0.83-1.09) 05/10/18 16:15 Problem List - Problems (1) Hypernatremia Code(s): E87.0 - HYPEROSMOLALITY AND HYPERNATREMIA (2) QI (acute kidney injury) Code(s): N17.9 - ACUTE KIDNEY FAILURE, UNSPECIFIED (3) Diabetes Code(s): E11.9 - TYPE 2 DIABETES MELLITUS WITHOUT COMPLICATIONS Assessment/Plan Current Medications Generic Name Dose Route Start Last Admin Trade Name Freq PRN Reason Stop Dose Admin Acetaminophen 650 mg 05/13/18 10:24 05/21/18 06:15 Tylenol - PO 650 mg Q6H PRN Administration FEVER Amlodipine Besylate 10 mg 05/13/18 10:00 05/21/18 09:24 Norvasc - PO 10 mg DAILY [facility] Administration Aspirin 81 mg 05/15/18 10:00 05/21/18 09:24 Ecotrin - PO 81 mg DAILY [facility] Administration Atorvastatin Calcium 80 mg 05/13/18 22:00 05/20/18 21:31 Lipitor - PO 80 mg HS [facility] Administration Dexamethasone 2 mg 05/19/18 22:00 05/21/18 09:24 Decadron - NGT 2 mg BID [facility] Administration Docusate Sodium 100 mg 05/11/18 22:00 05/21/18 14:00 Colace - PO 100 mg TID [facility] Administration Heparin Sodium (Porcine) 5,000 unit 05/19/18 06:00 05/21/18 15:05 Heparin - SQ 5,000 unit TID [facility] Administration Propofol 1,000,000 mcg in 100 mls @ 2.507 mls/hr 05/14/18 23:45 05/20/18 21: 32 Diprivan - IVPB 10 mcg/kg/min TITR [facility] 5.013 mls/hr Titration Protocol 5 MCG/KG/MIN Piperacillin Sod/Tazobactam 50 mls @ 100 mls/hr 05/15/18 18:00 05/21/18 09:23 Sod 3.375 gm/ Dextrose IVPB 100 mls/hr Q8H-IV [facility] Administration Protocol Vancomycin HCl 1,000 mg in 250 mls @ 200 mls/hr 05/19/18 11:30 05/21/18 10:46 Vancomycin (Pre-Docked) IVPB 200 mls/hr Q24H [facility] Administration Protocol Insulin Human Regular 100 100 mls @ 7.73 mls/hr 05/20/18 09:30 05/20/18 18:46 units/ Sodium Chloride IVPB 0.05 units/kg/hr TITR [facility] 3.86 mls/hr Titration Protocol 0.1 UNITS/KG/HR Labetalol HCl 200 mg/ 300 mg 05/13/18 14:00 05/21/18 14:50 Labetalol HCl 100 mg PO 300 mg TID [facility] Administration Levetiracetam 500 mg 05/11/18 22:00 05/21/18 09:24 Keppra Injection - IVPB 500 mg BID [facility] Administration Lisinopril 20 mg 05/13/18 10:00 05/20/18 10:23 Prinivil PO 20 mg DAILY [facility] Administration Ondansetron HCl 4 mg 05/11/18 17:57 05/11/18 19:00 Zofran Injection IVPUSH 4 mg Q6H PRN Administration NAUSEA AND/OR VOMITING Pantoprazole Sodium 40 mg 05/12/18 10:00 05/21/18 09:24 Protonix Iv IVPUSH 40 mg DAILY [facility] Administration Impression 1. QI 2. hypernatremia 3. hemorrhagic CVA 4. DM 5. a-fib 6. Acute Respiratory Failure 7. s/p Left frontal craniotomy, excision of thalamic hermorrhagic mass 8. hyperkalemia Plan - potassium improved - sodium is rising - pt has a free water deficit of about 2.8 liters. He has been on 100 cc free water flushes with meals and his sodium is high, will increase to 125 an hour and see if it gets better - monitor bp off of lisinopril - vent support - steroids may be exacerbating blood sugar Dr Davies
[2018-05-21] MEDS: ATORVASTATIN CA 80 MG TABLET (FP) PO SCH (21:15)
--- NOTE | 2018-05-21 21:51 | CONSULT ---
Consult Consult Specialty:: endocrine Referred by:: cass luna np Reason for Consultation:: dm uncontrolled - History of Present Illness Chief Complaint: intubated History of Present Illness: 67 year old male with DM, neuropathy, recent brain bleed, history of AFIB, s/p crainotomy to remove the clot. Remains intubated on a ventilator. unresponsive,on insulin drip bs managed with bgm q 1 hr . - Alcohol/Substance Use Hx Alcohol Use: No - Smoking History Smoking history: Never smoked Have you smoked in the past 12 months: No Home Medications - Allergies Allergies/Adverse Reactions: Allergies Allergy/AdvReac Type Severity Reaction Status Date / Time No Known Drug Allergies Allergy Verified 05/10/18 17:18 - Home Medications Home Medications: Ambulatory Orders Acetaminophen 650 mg PO Q6H PRN 05/10/18 Albuterol 2.5/Ipratropium 0.5 [Duoneb -] 1 neb IH QID 05/10/18 Amlodipine Besylate [Norvasc -] 10 mg PO DAILY 05/10/18 Aspirin [Aspirin EC] 81 mg PO DAILY 05/10/18 Atorvastatin Ca [Lipitor] 80 mg PO HS 05/10/18 Calcium Carbonate [Calcium Antacid] 300 mg PO Q6H PRN 05/10/18 Chlorhexidine Gluconate [Peridex -] 15 ml MM BID 05/10/18 Docusate Sodium [Colace] 100 mg PO TID 05/10/18 Ferrous Sulfate 325 mg PO BID 05/10/18 Furosemide [Lasix] 40 mg PO DAILY 05/10/18 Insulin Glargine,Hum.rec.anlog [Lantus Solostar] 40 unit SQ HS 05/10/18 Insulin Lispro [Humalog] 0 unit SQ TIDCM PRN 05/10/18 Labetalol HCl 300 mg PO TID 05/10/18 Lisinopril [Prinivil] 20 mg PO DAILY 05/10/18 Magnesium Hydroxide [Milk of Magnesia] 30 ml PO HS PRN 05/10/18 Melatonin 3 mg PO HS PRN 05/10/18 Nicotine [Nicotine Patch 7 mg/24 hr] 1 each TD DAILY 05/10/18 Oxycodone HCl 5 mg PO Q4H PRN 05/10/18 Pantoprazole Sodium 40 mg PO DAILY 05/10/18 Polyethylene Glycol 3350 [Miralax (For Daily Use) -] 17 gm PO DAILY 05/10/18 Pregabalin [Lyrica -] 50 mg PO DAILY 05/10/18 Simethicone 80 mg PO QID PRN 05/10/18 Sodium Chloride [Saline Mist] 2 sprays NS BID 05/10/18 Tramadol HCl 50 mg PO Q6H PRN 05/10/18 Zinc Oxide 20% Topical Oint 0 gm NR BID 05/10/18 Review of Systems Unable to obtain ROS, reason: intubated Physical Exam Vital Signs: Vital Signs Temperature 99.2 F 05/21/18 20:00 Pulse Rate 100 H 05/21/18 20:00 Respiratory Rate 21 H 05/21/18 21:09 Blood Pressure 135/84 05/21/18 20:00 O2 Sat by Pulse Oximetry (%) 100 05/21/18 10:30 Eyes: Yes: EOM Intact HENT: Yes: Normocephalic Neck: Yes: Trachea Midline Cardiovascular: Yes: Tachycardia Respiratory: Yes: Intubated, Rhonchi Gastrointestinal: Yes: Normal Bowel Sounds ...Rectal Exam: Yes: Deferred Extremities: Yes: WNL Neurological: Yes: Alert, Oriented Labs: CBC, BMP 05/21/18 05:30 05/21/18 05:30 Problem List - Problems (1) QI (acute kidney injury) Code(s): N17.9 - ACUTE KIDNEY FAILURE, UNSPECIFIED (2) Diabetes Code(s): E11.9 - TYPE 2 DIABETES MELLITUS WITHOUT COMPLICATIONS (3) Fall Code(s): W19.XXXA - UNSPECIFIED FALL, INITIAL ENCOUNTER Qualifiers: Encounter type: initial encounter Qualified Code(s): W19.XXXA - Unspecified fall, initial encounter (4) HTN (hypertension) Code(s): I10 - ESSENTIAL (PRIMARY) HYPERTENSION (5) Hypernatremia Code(s): E87.0 - HYPEROSMOLALITY AND HYPERNATREMIA (6) Intracranial bleed Code(s): I62.9 - NONTRAUMATIC INTRACRANIAL HEMORRHAGE, UNSPECIFIED (7) Respiratory failure Code(s): J96.90 - RESPIRATORY FAILURE, UNSP, UNSP W HYPOXIA OR HYPERCAPNIA Assessment/Plan Current Active Problems QI (acute kidney injury) (Acute) Diabetes (Acute) Fall (Acute) HTN (hypertension) (Acute) Hypernatremia (Acute) Intracranial bleed (Acute) Respiratory failure (Acute) S/P craniotomy (Acute) Sepsis (Acute) Abnormal Lab Results 05/21/18 05/21/18 05/21/18 05:30 05:30 05:30 WBC 10.3 H RBC 3.67 L Hgb 10.3 L Hct 31.1 L Plt Count 102 L MPV 11.2 H Absolute Neuts (auto) 8.7 H Neutrophils % 84.8 H ABG pH 7.48 H ABG pO2 at Pt Temp 71.3 L D ABG HCO3 29.7 H ABG O2 Content 13.0 L ABG Base Excess 6.0 H Sodium 150 H Chloride 113 H Anion Gap 7 L BUN 58 H Random Glucose 169 H Calcium 7.8 L Magnesium 2.6 H Troponin I 0.08 H Total Protein 5.2 L Albumin 2.0 L Laboratory Tests 05/21/18 05/21/18 05/21/18 04:00 05:29 05:45 POC Glucometer 181.81994 173.61863 186.02232 05/21/18 08:25 POC Glucometer 167.18636 plan: bgm q 1 hr insulin drip supportive care follow up bmp iv fluid /tpn
[2018-05-22] MEDS ORDERED: PIPERACILLIN/TAZOBACTAM 3.375 GM VIAL IVPB ONE ×3 (00:57→16:13)
[2018-05-22] MEDS ORDERED: DEXTROSE 5%-WATER - 50 ML IVPB ONE ×2 (00:57→09:06)
[2018-05-22] MEDS: PIPERACILLIN/TAZOB 3.375 GM 3.375 GM in DEXTROSE 5%-WATER - 50 ML IVPB SCH ×3 (01:03→17:05)
[2018-05-22] MEDS ORDERED: INSULIN REGULAR HUMAN 100 UNITS/ML *VIAL ONE ×2 (04:02→04:04)
[2018-05-22] MEDS: INSULIN REGULAR 100 UNITS in SODIUM CHLORIDE 99 ML IVPB SCH (04:19)
[2018-05-22] MEDS ORDERED: LABETALOL HCL 200 MG TABLET (FP) ONE ×3 (05:04→21:43)
[2018-05-22] MEDS ORDERED: LABETALOL HCL 100 MG TABLET (FP) ONE ×3 (05:04→21:43)
[2018-05-22] MEDS: HEPARIN NA (PORCINE) 5,000 UNITS/ML 1ML VIAL SQ SCH ×3 (05:06→21:51)
[2018-05-22] MEDS: DOCUSATE SODIUM 100 MG CAPSULE (FP) PO SCH ×3 (05:06→21:50)
[2018-05-22] MEDS: LABETALOL HCL 200 MG, LABETALOL HCL 100 MG PO SCH ×3 (05:06→21:50)
[2018-05-22 06:01] LABS: BASO % 0.1 % (0-2.0); EOS % 0.1 % (0-4.5); MCH 27.3 pg (25.7-33.7); MCHC 32.1 g/dl (32.0-35.9); MEAN CELL VOLUME 84.9 fl (80-96); MEAN PLT VOLUME 11.9 fl (7.5-11.1); MONO % 4.7 % (3.8-10.2); NEUT % 86.1 % (42.8-82.8); PLATELET COUNT 103 K/MM3 (134-434); RBC 3.65 M/mm3 (4.00-5.60); RDW 13.8 % (11.9-15.9); WHITE BLOOD COUNT 9.6 K/mm3 (4.0-10.0)
[2018-05-22 06:31] LABS: ALK PHOS 112 U/L (45-117); ANION GAP 6 MMOL/L (8-16); BILIRUBIN,TOTAL 0.5 mg/dL (0.2-1); BLOOD UREA NITROGEN 54 mg/dL (7-18); CALCIUM 7.8 mg/dL (8.5-10.1); CHLORIDE 114 mmol/L (98-107); CO2 30 mmol/L (21-32); CREATININE 1.1 mg/dL (0.55-1.3); GLUCOSE,RANDOM 133 mg/dL (74-106); POTASSIUM 4.3 mmol/L (3.5-5.1); SGOT/AST 34 U/L (15-37); SGPT/ALT 33 U/L (13-61); SODIUM 150 mmol/L (136-145); TOT PROT 5.2 g/dl (6.4-8.2)
[2018-05-22 08:39] LABS: MAGNESIUM 2.6 mg/dL (1.8-2.4); PHOSPHOROUS 4.2 mg/dL (2.5-4.9)
[2018-05-22] MEDS ORDERED: PT OWN MED DRAWER 7, Y5N ONE ×2 (09:05→11:36)
[2018-05-22] MEDS: levETIRAcetam 500 MG/5 ML INJECTION VIAL IVPB SCH ×2 (09:28→21:49)
[2018-05-22] MEDS: PANTOPRAZOLE SODIUM 40 MG VIAL IVPUSH SCH (09:28)
[2018-05-22] MEDS: ASPIRIN COATED 81 MG TABLET.EC PO SCH (09:29)
[2018-05-22] MEDS: DEXAMETHASONE 4 MG TABLET (FP) NGT SCH (09:29)
--- NOTE | 2018-05-22 09:38 | PN ---
Progress Note (short form) - Note Progress Note: 67 year old male history of DM, Neuropathy, had recent brain bleed, he also have history of atrial fibrillation. Patient fell out of wheel chair. He has ct scan done showed left basal ganglia bleed and old right parietal lobe infarct. He underwent craniotomy by Dr Aden and clot removal. His mental status remain unchanged, no seizure activity noticed, and he is off sedation and staring . Neurological Examination( Limited Neuro exam) He is off sedation and staring, no seizure or motor activity seen he do not follow command, right sided hemiparesis His vital is normal, no neck stiffness pupils is reactive, small, mild right facial palsy Assessment: left basal ganglia bleed with intra ventricular extension. S/P Craniotomy on May 11 and clot removal. Plan: 1. continue keppra for now, 2. neuro status is same, and primary team is considering extubating Will continue to follow up with primary team Thanking you so much Avelino Phoenix MD
--- NOTE | 2018-05-22 09:50 | PN ---
Progress Note, Physician - Current Medication List Current Medications: Active Medications Acetaminophen (Tylenol -) 650 mg PO Q6H PRN PRN Reason: FEVER Last Admin: 05/21/18 21:22 Dose: 650 mg Amlodipine Besylate (Norvasc -) 10 mg PO DAILY [facility] Last Admin: 05/21/18 09:24 Dose: 10 mg Aspirin (Ecotrin -) 81 mg PO DAILY [facility] Last Admin: 05/22/18 09:29 Dose: 81 mg Atorvastatin Calcium (Lipitor -) 80 mg PO HS [facility] Last Admin: 05/21/18 21:15 Dose: 80 mg Dexamethasone (Decadron -) 2 mg NGT BID [facility] Last Admin: 05/22/18 09:29 Dose: 2 mg Docusate Sodium (Colace -) 100 mg PO TID [facility] Last Admin: 05/22/18 05:06 Dose: 100 mg Heparin Sodium (Porcine) (Heparin -) 5,000 unit SQ TID [facility] Last Admin: 05/22/18 05:06 Dose: 5,000 unit Propofol (Diprivan -) 1,000,000 mcg in 100 mls @ 2.507 mls/hr IVPB TITR [facility]; Protocol Last Titration: 05/20/18 21:32 Dose: 10 mcg/kg/min, 5.013 mls/hr Piperacillin Sod/Tazobactam (Sod 3.375 gm/ Dextrose) 50 mls @ 100 mls/hr IVPB Q8H-IV [facility]; Protocol Last Admin: 05/22/18 09:27 Dose: 100 mls/hr Vancomycin HCl (Vancomycin (Pre-Docked)) 1,000 mg in 250 mls @ 200 mls/hr IVPB Q24H [facility]; Protocol Last Admin: 05/21/18 10:46 Dose: 200 mls/hr Insulin Aspart (Novolog Vial Sliding Scale -) 1 vial SQ ACHS [facility]; Protocol Insulin Detemir (Levemir Vial) 14 units SQ [facility] Labetalol HCl 200 mg/ (Labetalol HCl 100 mg) 300 mg PO TID [facility] Last Admin: 05/22/18 05:06 Dose: 300 mg Levetiracetam (Keppra Injection -) 500 mg IVPB BID [facility] Last Admin: 05/22/18 09:28 Dose: 500 mg Lisinopril (Prinivil) 20 mg PO DAILY [facility] Last Admin: 05/20/18 10:23 Dose: 20 mg Ondansetron HCl (Zofran Injection) 4 mg IVPUSH Q6H PRN PRN Reason: NAUSEA AND/OR VOMITING Last Admin: 05/11/18 19:00 Dose: 4 mg Pantoprazole Sodium (Protonix Iv) 40 mg IVPUSH DAILY [facility] Last Admin: 05/22/18 09:28 Dose: 40 mg - Objective Vital Signs: Vital Signs Temperature 98.8 F 05/22/18 06:00 Pulse Rate 89 05/22/18 08:35 Respiratory Rate 16 05/22/18 08:35 Blood Pressure 139/81 05/22/18 08:00 O2 Sat by Pulse Oximetry (%) 97 05/22/18 08:35 Cardiovascular: Yes: S1, S2 Respiratory: Yes: Mechanically Ventilated Gastrointestinal: Yes: Normal Bowel Sounds, Soft Labs: CBC, BMP 05/22/18 05:30 05/22/18 05:30 INR, PTT INR 1.06 (0.83-1.09) 05/10/18 16:15 Problem List - Problems (1) Intracranial bleed Code(s): I62.9 - NONTRAUMATIC INTRACRANIAL HEMORRHAGE, UNSPECIFIED (2) Diabetes Code(s): E11.9 - TYPE 2 DIABETES MELLITUS WITHOUT COMPLICATIONS (3) HTN (hypertension) Code(s): I10 - ESSENTIAL (PRIMARY) HYPERTENSION (4) Respiratory failure Code(s): J96.90 - RESPIRATORY FAILURE, UNSP, UNSP W HYPOXIA OR HYPERCAPNIA Assessment/Plan - Problems (1) QI (acute kidney injury) Assessment/Plan: -continues with hypernatremia, cont to monitor -Nephrology on board -Cr stable -Kidney US showed no hydronephrosis or stones b/l Code(s): N17.9 - ACUTE KIDNEY FAILURE, UNSPECIFIED (2) Diabetes Assessment/Plan: -A1c at 7.8 -BGM QID -On Insulin drip -Tube feed glucerna -RD on board Code(s): E11.9 - TYPE 2 DIABETES MELLITUS WITHOUT COMPLICATIONS (3) HTN (hypertension) Assessment/Plan: -On Labetalol, lisinopril and amlodipine Code(s): I10 - ESSENTIAL (PRIMARY) HYPERTENSION (4) Hypernatremia Assessment/Plan: -nephrology on board -2/2 Decadron -cont monitor Code(s): E87.0 - HYPEROSMOLALITY AND HYPERNATREMIA (5) Intracranial bleed Code(s): I62.9 - NONTRAUMATIC INTRACRANIAL HEMORRHAGE, UNSPECIFIED (6) Respiratory failure Assessment/Plan: -Pulmonary on board -failed weaning trials so far -Remains intubated and on mechanical vent -Bronchodilators -IV abx -Daily ABG Code(s): J96.90 - RESPIRATORY FAILURE, UNSP, UNSP W HYPOXIA OR HYPERCAPNIA (7) S/P craniotomy Assessment/Plan: -Neurosurgery on board -On decadron Code(s): Z98.890 - OTHER SPECIFIED POSTPROCEDURAL STATES (8) Sepsis Assessment/Plan: -Cultures: Microbiology 05/15/18 19:45 Blood - Peripheral Venous Blood Culture - Final NO GROWTH AFTER 5 DAYS INCUBATION 05/15/18 19:35 Blood - Peripheral Venous Blood Culture - Final NO GROWTH AFTER 5 DAYS INCUBATION 05/15/18 19:15 Urine - Urine Smith Urine Culture - Final Enterococcus Faecalis 05/15/18 19:15 Sputum - Endotrachea Suction/Ventilator Gram Stain - Final 05/15/18 19:15 Sputum - Endotrachea Suction/Ventilator Sputum Culture - Final Mr S Aureus Klebsiella Pneumoniae Diphtheroid/Corynebacterium 05/13/18 10:45 Blood - Peripheral Venous Blood Culture - Final NO GROWTH AFTER 5 DAYS INCUBATION 05/13/18 11:00 Blood - Peripheral Venous Blood Culture - Final NO GROWTH AFTER 5 DAYS INCUBATION 05/15/18 19:15 Urine For Antigen Detection Legionella Antigen - Final 05/15/18 19:15 Urine For Antigen Detection Streptococcus pneumoniae Antigen (M - Final 05/13/18 12:30 Urine - Urine Smith Urine Culture - Final NO GROWTH OBTAINED -ID on board -IV Zosyn -febrile overnight Code(s): A41.9 - SEPSIS, UNSPECIFIED ORGANISM Assessment/Plan see problem list DVT prophylaxis Palliative care
--- NOTE | 2018-05-22 11:01 | PN ---
Progress Note, Physician History of Present Illness: Awake, eyes open but does not make eye contact Low grade fever WBC WNL Sputum c/s mixed, including MRSA Urine pneumococcal ag + Azotemia improved - Current Medication List Current Medications: Active Medications Acetaminophen (Tylenol -) 650 mg PO Q6H PRN PRN Reason: FEVER Last Admin: 05/21/18 21:22 Dose: 650 mg Amlodipine Besylate (Norvasc -) 10 mg PO DAILY [facility] Last Admin: 05/21/18 09:24 Dose: 10 mg Aspirin (Ecotrin -) 81 mg PO DAILY [facility] Last Admin: 05/22/18 09:29 Dose: 81 mg Atorvastatin Calcium (Lipitor -) 80 mg PO HS [facility] Last Admin: 05/21/18 21:15 Dose: 80 mg Dexamethasone (Decadron -) 2 mg NGT BID [facility] Last Admin: 05/22/18 09:29 Dose: 2 mg Docusate Sodium (Colace -) 100 mg PO TID [facility] Last Admin: 05/22/18 05:06 Dose: 100 mg Heparin Sodium (Porcine) (Heparin -) 5,000 unit SQ TID [facility] Last Admin: 05/22/18 05:06 Dose: 5,000 unit Propofol (Diprivan -) 1,000,000 mcg in 100 mls @ 2.507 mls/hr IVPB TITR [facility]; Protocol Last Titration: 05/20/18 21:32 Dose: 10 mcg/kg/min, 5.013 mls/hr Piperacillin Sod/Tazobactam (Sod 3.375 gm/ Dextrose) 50 mls @ 100 mls/hr IVPB Q8H-IV [facility]; Protocol Last Admin: 05/22/18 09:27 Dose: 100 mls/hr Vancomycin HCl (Vancomycin (Pre-Docked)) 1,000 mg in 250 mls @ 200 mls/hr IVPB Q24H [facility]; Protocol Last Admin: 05/21/18 10:46 Dose: 200 mls/hr Insulin Aspart (Novolog Vial Sliding Scale -) 1 vial SQ ACHS [facility]; Protocol Insulin Detemir (Levemir Vial) 14 units SQ HS [facility] Labetalol HCl 200 mg/ (Labetalol HCl 100 mg) 300 mg PO TID [facility] Last Admin: 05/22/18 05:06 Dose: 300 mg Levetiracetam (Keppra Injection -) 500 mg IVPB BID [facility] Last Admin: 05/22/18 09:28 Dose: 500 mg Lisinopril (Prinivil) 20 mg PO DAILY [facility] Last Admin: 05/20/18 10:23 Dose: 20 mg Ondansetron HCl (Zofran Injection) 4 mg IVPUSH Q6H PRN PRN Reason: NAUSEA AND/OR VOMITING Last Admin: 05/11/18 19:00 Dose: 4 mg Pantoprazole Sodium (Protonix Iv) 40 mg IVPUSH DAILY [facility] Last Admin: 05/22/18 09:28 Dose: 40 mg - Objective Vital Signs: Vital Signs Temperature 98.8 F 05/22/18 06:00 Pulse Rate 89 05/22/18 08:35 Respiratory Rate 16 05/22/18 09:00 Blood Pressure 139/81 05/22/18 08:00 O2 Sat by Pulse Oximetry (%) 97 05/22/18 09:00 Constitutional: Yes: No Distress Cardiovascular: Yes: Regular Rate and Rhythm, Murmur, S1, S2 Respiratory: Yes: Mechanically Ventilated Gastrointestinal: Yes: Normal Bowel Sounds, Soft. No: Tenderness Edema: No Labs: CBC, BMP 05/22/18 05:30 05/22/18 05:30 INR, PTT INR 1.06 (0.83-1.09) 05/10/18 16:15 Assessment/Plan LLL pneumonia + sputum c/s MRSA/ mixed + pneumococcal ag Respiratory failure S/P craniotomy S/A AVR Azotemia improved Uncontrolled DM Continue zosyn/ vancomycin Contact precautions MRSA
[2018-05-22] MEDS: INSULIN SLIDING SCALE (NOVOLOG) 1 VIAL SQ SCH ×3 (11:24→22:12)
[2018-05-22] MEDS: VANCOMYCIN 1 GRAM (PRE-DOCKED) 1,000 MG/250 ML BAG IVPB SCH (11:31)
[2018-05-22] MEDS: amLODIPine BESYLATE 10 MG TABLET (FP) PO SCH (11:41)
--- NOTE | 2018-05-22 12:15 | PN ---
Progress Note, Physician History of Present Illness: Pt seen and examined at bedside. He remains in the ICU. He remains intubated. - Current Medication List Current Medications: Active Medications Acetaminophen (Tylenol -) 650 mg PO Q6H PRN PRN Reason: FEVER Last Admin: 05/21/18 21:22 Dose: 650 mg Amlodipine Besylate (Norvasc -) 10 mg PO DAILY [facility] Last Admin: 05/22/18 11:41 Dose: 10 mg Aspirin (Ecotrin -) 81 mg PO DAILY [facility] Last Admin: 05/22/18 09:29 Dose: 81 mg Atorvastatin Calcium (Lipitor -) 80 mg PO HS [facility] Last Admin: 05/21/18 21:15 Dose: 80 mg Dexamethasone (Decadron -) 2 mg NGT DAILY [facility] Docusate Sodium (Colace -) 100 mg PO TID [facility] Last Admin: 05/22/18 05:06 Dose: 100 mg Heparin Sodium (Porcine) (Heparin -) 5,000 unit SQ TID [facility] Last Admin: 05/22/18 05:06 Dose: 5,000 unit Propofol (Diprivan -) 1,000,000 mcg in 100 mls @ 2.507 mls/hr IVPB TITR [facility]; Protocol Last Titration: 05/20/18 21:32 Dose: 10 mcg/kg/min, 5.013 mls/hr Piperacillin Sod/Tazobactam (Sod 3.375 gm/ Dextrose) 50 mls @ 100 mls/hr IVPB Q8H-IV [facility]; Protocol Last Admin: 05/22/18 09:27 Dose: 100 mls/hr Vancomycin HCl (Vancomycin (Pre-Docked)) 1,000 mg in 250 mls @ 200 mls/hr IVPB Q24H [facility]; Protocol Last Admin: 05/22/18 11:31 Dose: 200 mls/hr Insulin Aspart (Novolog Vial Sliding Scale -) 1 vial SQ ACHS [facility]; Protocol Last Admin: 05/22/18 11:24 Dose: 8 units Insulin Detemir (Levemir Vial) 14 units SQ HS [facility] Labetalol HCl 200 mg/ (Labetalol HCl 100 mg) 300 mg PO TID [facility] Last Admin: 05/22/18 05:06 Dose: 300 mg Levetiracetam (Keppra Injection -) 500 mg IVPB BID [facility] Last Admin: 05/22/18 09:28 Dose: 500 mg Lisinopril (Prinivil) 20 mg PO DAILY [facility] Last Admin: 05/20/18 10:23 Dose: 20 mg Ondansetron HCl (Zofran Injection) 4 mg IVPUSH Q6H PRN PRN Reason: NAUSEA AND/OR VOMITING Last Admin: 05/11/18 19:00 Dose: 4 mg Pantoprazole Sodium (Protonix Iv) 40 mg IVPUSH DAILY [facility] Last Admin: 05/22/18 09:28 Dose: 40 mg - Objective Vital Signs: Vital Signs Temperature 98.8 F 05/22/18 06:00 Pulse Rate 89 05/22/18 08:35 Respiratory Rate 22 H 05/22/18 11:20 Blood Pressure 139/81 05/22/18 08:00 O2 Sat by Pulse Oximetry (%) 98 05/22/18 11:20 Constitutional: Yes: Calm Cardiovascular: Yes: S1, S2 Respiratory: Yes: Mechanically Ventilated Gastrointestinal: Yes: Soft Genitourinary: Yes: Smith Present Musculoskeletal: Yes: Muscle Weakness Edema: No Neurological: Yes: Lethargy Labs: CBC, BMP 05/22/18 05:30 05/22/18 05:30 INR, PTT INR 1.06 (0.83-1.09) 05/10/18 16:15 Problem List - Problems (1) Hypernatremia Code(s): E87.0 - HYPEROSMOLALITY AND HYPERNATREMIA (2) QI (acute kidney injury) Code(s): N17.9 - ACUTE KIDNEY FAILURE, UNSPECIFIED (3) Diabetes Code(s): E11.9 - TYPE 2 DIABETES MELLITUS WITHOUT COMPLICATIONS Assessment/Plan Current Medications Generic Name Dose Route Start Last Admin Trade Name Freq PRN Reason Stop Dose Admin Acetaminophen 650 mg 05/13/18 10:24 05/21/18 21:22 Tylenol - PO 650 mg Q6H PRN Administration FEVER Amlodipine Besylate 10 mg 05/13/18 10:00 05/22/18 11:41 Norvasc - PO 10 mg DAILY [facility] Administration Aspirin 81 mg 05/15/18 10:00 05/22/18 09:29 Ecotrin - PO 81 mg DAILY [facility] Administration Atorvastatin Calcium 80 mg 05/13/18 22:00 05/21/18 21:15 Lipitor - PO 80 mg HS [facility] Administration Dexamethasone 2 mg 05/23/18 10:00 Decadron - NGT DAILY [facility] Docusate Sodium 100 mg 05/11/18 22:00 05/22/18 05:06 Colace - PO 100 mg TID [facility] Administration Heparin Sodium (Porcine) 5,000 unit 05/19/18 06:00 05/22/18 05:06 Heparin - SQ 5,000 unit TID [facility] Administration Propofol 1,000,000 mcg in 100 mls @ 2.507 mls/hr 05/14/18 23:45 05/20/18 21: 32 Diprivan - IVPB 10 mcg/kg/min TITR [facility] 5.013 mls/hr Titration Protocol 5 MCG/KG/MIN Piperacillin Sod/Tazobactam 50 mls @ 100 mls/hr 05/15/18 18:00 05/22/18 09:27 Sod 3.375 gm/ Dextrose IVPB 100 mls/hr Q8H-IV [facility] Administration Protocol Vancomycin HCl 1,000 mg in 250 mls @ 200 mls/hr 05/19/18 11:30 05/22/18 11:31 Vancomycin (Pre-Docked) IVPB 200 mls/hr Q24H [facility] Administration Protocol Insulin Aspart 1 vial 05/22/18 11:00 05/22/18 11:24 Novolog Vial Sliding Scale - SQ 8 units ACHS [facility] Administration Protocol Insulin Detemir 14 units 05/22/18 22:00 Levemir Vial SQ HS [facility] Labetalol HCl 200 mg/ 300 mg 05/13/18 14:00 05/22/18 05:06 Labetalol HCl 100 mg PO 300 mg TID [facility] Administration Levetiracetam 500 mg 05/11/18 22:00 05/22/18 09:28 Keppra Injection - IVPB 500 mg BID [facility] Administration Lisinopril 20 mg 05/13/18 10:00 05/20/18 10:23 Prinivil PO 20 mg DAILY [facility] Administration Ondansetron HCl 4 mg 05/11/18 17:57 05/11/18 19:00 Zofran Injection IVPUSH 4 mg Q6H PRN Administration NAUSEA AND/OR VOMITING Pantoprazole Sodium 40 mg 05/12/18 10:00 05/22/18 09:28 Protonix Iv IVPUSH 40 mg DAILY [facility] Administration Impression 1. QI 2. hypernatremia 3. hemorrhagic CVA 4. DM 5. a-fib 6. Acute Respiratory Failure 7. s/p Left frontal craniotomy, excision of thalamic hermorrhagic mass 8. hyperkalemia Plan - free water flushed were not increased yesterday, spoke to nurse she will increase them today - will follow sodium level - potassium has been stable - will restart lisinopril at lower dose - monitor bp - vent support - steroids may be exacerbating blood sugar Dr Davies
--- NOTE | 2018-05-22 13:10 | PN ---
Teaching Attending Note Name of Resident: Can Ledbetter ATTENDING PHYSICIAN STATEMENT I saw and evaluated the patient. I reviewed the resident's note and discussed the case with the resident. I agree with the resident's findings and plan as documented. SUBJECTIVE: Pt seen and examined in the ICU. Remained intubated, awake off sedation but not following commands. Good cough upon suctioning. Placed on CPAP/PS 5/5 with good TV, RR and subsequently extubated. OBJECTIVE: Vital Signs Period Temp Pulse Resp BP Sys/Goel Pulse Ox Last 24 Hr 98.8 F-100.2 F 83-105 16-28 122-160/75-92 95-98 Intake & Output 05/19/18 05/20/18 05/21/18 05/22/18 23:59 23:59 23:59 23:59 Intake Total 4050.4 2543 3475.0 1162 Output Total 3000 2000 1900 500 Balance 1050.4 543 1575.0 662 Weight 77.309 kg 77.519 kg 78.67 kg 76.929 kg Gen: extubated Heart: RRR Lung: decreased breath sounds at the bases Abd: soft, nontender Ext: no edema CBC, BMP 05/22/18 05:30 05/22/18 05:30 Active Medications Acetaminophen (Tylenol -) 650 mg PO Q6H PRN PRN Reason: FEVER Last Admin: 05/21/18 21:22 Dose: 650 mg Amlodipine Besylate (Norvasc -) 10 mg PO DAILY [facility] Last Admin: 05/22/18 11:41 Dose: 10 mg Aspirin (Ecotrin -) 81 mg PO DAILY [facility] Last Admin: 05/22/18 09:29 Dose: 81 mg Atorvastatin Calcium (Lipitor -) 80 mg PO HS [facility] Last Admin: 05/21/18 21:15 Dose: 80 mg Dexamethasone (Decadron -) 2 mg NGT DAILY [facility] Docusate Sodium (Colace -) 100 mg PO TID [facility] Last Admin: 05/22/18 05:06 Dose: 100 mg Heparin Sodium (Porcine) (Heparin -) 5,000 unit SQ TID [facility] Last Admin: 05/22/18 05:06 Dose: 5,000 unit Propofol (Diprivan -) 1,000,000 mcg in 100 mls @ 2.507 mls/hr IVPB TITR [facility]; Protocol Last Titration: 05/20/18 21:32 Dose: 10 mcg/kg/min, 5.013 mls/hr Piperacillin Sod/Tazobactam (Sod 3.375 gm/ Dextrose) 50 mls @ 100 mls/hr IVPB Q8H-IV [facility]; Protocol Last Admin: 05/22/18 09:27 Dose: 100 mls/hr Vancomycin HCl (Vancomycin (Pre-Docked)) 1,000 mg in 250 mls @ 200 mls/hr IVPB Q24H [facility]; Protocol Last Admin: 05/22/18 11:31 Dose: 200 mls/hr Insulin Aspart (Novolog Vial Sliding Scale -) 1 vial SQ ACHS [facility]; Protocol Last Admin: 05/22/18 11:24 Dose: 8 units Insulin Detemir (Levemir Vial) 14 units SQ HS [facility] Labetalol HCl 200 mg/ (Labetalol HCl 100 mg) 300 mg PO TID [facility] Last Admin: 05/22/18 05:06 Dose: 300 mg Levetiracetam (Keppra Injection -) 500 mg IVPB BID [facility] Last Admin: 05/22/18 09:28 Dose: 500 mg Lisinopril (Prinivil) 10 mg PO DAILY [facility] Ondansetron HCl (Zofran Injection) 4 mg IVPUSH Q6H PRN PRN Reason: NAUSEA AND/OR VOMITING Last Admin: 05/11/18 19:00 Dose: 4 mg Pantoprazole Sodium (Protonix Iv) 40 mg IVPUSH DAILY [facility] Last Admin: 05/22/18 09:28 Dose: 40 mg ASSESSMENT AND PLAN: 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
--- NOTE | 2018-05-22 16:03 | PN ---
Physical Exam: SUBJECTIVE: Patient seen and examined at bedside. He remains intubated and awake off of sedation. No acute events overnight. OBJECTIVE: Vital Signs Period Temp Pulse Resp BP Sys/Goel Pulse Ox Last 24 Hr 98.8 F-100.2 F 83-105 16-28 122-160/76-92 95-98 GENERAL: The patient is intubated, awake, and stares blankly around the room. HEAD: Surgical head dressing. No erythematous areas. EYES: PERRL, sclera anicteric, conjunctiva clear. ENT: Ears normal, nares patent, moist mucous membranes. NECK: Trachea midline. LUNGS: Coarse breath sounds bilaterally. no crackles. HEART: Regular rate and irregular rhythm, S1, S2 without murmur, rub or gallop. ABDOMEN: Soft, nondistended, normoactive bowel sounds. EXTREMITIES: 2+ pulses, warm, well-perfused, no edema. NEUROLOGICAL: Pupils equal and reactive. + gag reflex. Patient blinks with stimuli. Tough to assess further. PSYCH: Poor eye contact. SKIN: Warm, dry, normal turgor, no rashes or lesions noted Laboratory Results - last 24 hr 05/21/18 05/21/18 05/21/18 08:25 11:05 13:27 WBC RBC Hgb Hct MCV MCH MCHC RDW Plt Count MPV Absolute Neuts (auto) Neutrophils % Lymphocytes % Monocytes % Eosinophils % Basophils % Nucleated RBC % Sodium Potassium Chloride Carbon Dioxide Anion Gap BUN Creatinine Creat Clearance w eGFR POC Glucometer 167.73367 152.25994 190.98031 Random Glucose Calcium Phosphorus Magnesium Total Bilirubin AST ALT Alkaline Phosphatase Total Protein Albumin 05/21/18 05/21/18 05/21/18 15:26 16:49 18:40 WBC RBC Hgb Hct MCV MCH MCHC RDW Plt Count MPV Absolute Neuts (auto) Neutrophils % Lymphocytes % Monocytes % Eosinophils % Basophils % Nucleated RBC % Sodium Potassium Chloride Carbon Dioxide Anion Gap BUN Creatinine Creat Clearance w eGFR POC Glucometer 133.02152 121.09552 147.84474 Random Glucose Calcium Phosphorus Magnesium Total Bilirubin AST ALT Alkaline Phosphatase Total Protein Albumin 05/21/18 05/21/18 05/22/18 20:15 22:11 00:30 WBC RBC Hgb Hct MCV MCH MCHC RDW Plt Count MPV Absolute Neuts (auto) Neutrophils % Lymphocytes % Monocytes % Eosinophils % Basophils % Nucleated RBC % Sodium Potassium Chloride Carbon Dioxide Anion Gap BUN Creatinine Creat Clearance w eGFR POC Glucometer 173.02503 206.41967 [phone] Random Glucose Calcium Phosphorus Magnesium Total Bilirubin AST ALT Alkaline Phosphatase Total Protein Albumin 05/22/18 05/22/18 05/22/18 03:12 04:48 05:30 WBC 9.6 RBC 3.65 L Hgb 10.0 L Hct 31.0 L MCV 84.9 MCH 27.3 MCHC 32.1 RDW 13.8 Plt Count 103 L MPV 11.9 H Absolute Neuts (auto) 8.3 H Neutrophils % 86.1 H Lymphocytes % 9.0 Monocytes % 4.7 Eosinophils % 0.1 Basophils % 0.1 Nucleated RBC % 0 Sodium Potassium Chloride Carbon Dioxide Anion Gap BUN Creatinine Creat Clearance w eGFR POC Glucometer 193.06059 109.07244 Random Glucose Calcium Phosphorus Magnesium Total Bilirubin AST ALT Alkaline Phosphatase Total Protein Albumin 05/22/18 05/22/18 05/22/18 05:30 06:22 07:56 WBC RBC Hgb Hct MCV MCH MCHC RDW Plt Count MPV Absolute Neuts (auto) Neutrophils % Lymphocytes % Monocytes % Eosinophils % Basophils % Nucleated RBC % Sodium 150 H Potassium 4.3 Chloride 114 H Carbon Dioxide 30 Anion Gap 6 L BUN 54 H Creatinine 1.1 Creat Clearance w eGFR > 60 POC Glucometer 158.57409 129.26840 Random Glucose 133 H Calcium 7.8 L Phosphorus 4.2 Magnesium 2.6 H Total Bilirubin 0.5 AST 34 ALT 33 Alkaline Phosphatase 112 Total Protein 5.2 L Albumin 2.0 L Active Medications Generic Name Dose Route Start Last Admin Trade Name Chrisq PRN Reason Stop Dose Admin Acetaminophen 650 mg 05/13/18 10:24 05/21/18 21:22 Tylenol - PO 650 mg Q6H PRN Administration FEVER Amlodipine Besylate 10 mg 05/13/18 10:00 05/22/18 11:41 Norvasc - PO 10 mg DAILY [facility] Administration Aspirin 81 mg 05/15/18 10:00 05/22/18 09:29 Ecotrin - PO 81 mg DAILY [facility] Administration Atorvastatin Calcium 80 mg 05/13/18 22:00 05/21/18 21:15 Lipitor - PO 80 mg HS [facility] Administration Dexamethasone 2 mg 05/23/18 10:00 Decadron - NGT DAILY [facility] Docusate Sodium 100 mg 05/11/18 22:00 05/22/18 14:54 Colace - PO Not Given TID [facility] Heparin Sodium (Porcine) 5,000 unit 05/19/18 06:00 05/22/18 14:44 Heparin - SQ 5,000 unit TID [facility] Administration Propofol 1,000,000 mcg in 100 mls @ 2.507 mls/hr 05/14/18 23:45 05/20/18 21: 32 Diprivan - IVPB 10 mcg/kg/min TITR [facility] 5.013 mls/hr Titration Protocol 5 MCG/KG/MIN Piperacillin Sod/Tazobactam 50 mls @ 100 mls/hr 05/15/18 18:00 05/22/18 09:27 Sod 3.375 gm/ Dextrose IVPB 100 mls/hr Q8H-IV [facility] Administration Protocol Vancomycin HCl 1,000 mg in 250 mls @ 200 mls/hr 05/19/18 11:30 05/22/18 11:31 Vancomycin (Pre-Docked) IVPB 200 mls/hr Q24H [facility] Administration Protocol Insulin Aspart 1 vial 05/22/18 11:00 05/22/18 11:24 Novolog Vial Sliding Scale - SQ 8 units ACHS [facility] Administration Protocol Insulin Detemir 14 units 05/22/18 22:00 Levemir Vial SQ HS [facility] Labetalol HCl 200 mg/ 300 mg 05/13/18 14:00 05/22/18 14:54 Labetalol HCl 100 mg PO Not Given TID [facility] Levetiracetam 500 mg 05/11/18 22:00 05/22/18 09:28 Keppra Injection - IVPB 500 mg BID [facility] Administration Lisinopril 10 mg 05/22/18 12:15 Prinivil PO DAILY [facility] Ondansetron HCl 4 mg 05/11/18 17:57 05/11/18 19:00 Zofran Injection IVPUSH 4 mg Q6H PRN Administration NAUSEA AND/OR VOMITING Pantoprazole Sodium 40 mg 05/12/18 10:00 05/22/18 09:28 Protonix Iv IVPUSH 40 mg DAILY [facility] Administration ASSESSMENT/PLAN: Assessment: 67 yo M w a hx of AFIB, recent hemorrhagic CVA, T2DM is here s/p Left frontal craniotomy and blood clot removal after being operated on by Dr. Taveras. There are X-ray changes which suggest an infiltrate or atelectasis in the left base. We weaned him off the vent today. he was on CPAP mode for 4 hours without any tachypnea, tachycardia, consistently pulled good tidal volumes above 500, and had a RSI of around 40. After we took him off the vent he began having some abdominal breathing and appeared to be in mild respiratory distress with a RR of 28. We placed the patient on High flow nasal cannula and his respiratory effort has improved markedly. he is no longer breathing with his abdomen and appears to be more comfortable. We stopped his insulin drip today bc his glucose was consistently below 150 for 24 hours so we put him back on a sliding scale. If patient's glucose does not continue to consistently be between 140 and 180 we will restart the drip. QI improving. BUN today - 54, Cr 1.1. We have tapered his decadron to 2 daily. Will continue this for 2 days then stop his decadron. Plan: Nephro: - QI - likely Pre-renal injury. Improving. - Kidney US showed no hydronephrosis or stones b/l - Urine lites support pre-renal injury. - Renal on board Cardio: - Strict BP control with systolic < 130 - Lebatalol for elevated BP or rate control PRN - Patient is on home meds ID: - ID consulted - PNA: Abx for HCAP vs aspiration. - Positive Strep pneumo in the urine. - Positive MRSA in sputum - Positive E fecalis in urine - Vanc and zosyn being given - Contact precautions Pulm: - Extubated - Currently on high flow NC - ABG daily - try to avoid re-intubating the patient. - Attempt Bi-PAP before re-intubation. Neuro: - Daily sedation vacations to assess mental status - Keppra 500 mg for seizure prohylaxis. - Head of the bead 30 degrees. GI: - Aspiration precautions. - Protonix 40 - Zofran PRN Endo: - Decadron to 2 daily - Sliding scale - frequent glucose checks Prophylaxis: - Aspiration precautions. - Heparin 5000 TID F/E/N: - holding nutrition for today bc he has no NG tube. - Elevated potassium from yesterday resolved with kayexalate. - No standing fluids today Code Status: - Full code Dispo: - Patient will continue to receive monitoring in the ICU. Visit type - Emergency Visit Emergency Visit: Yes ED Registration Date: 05/10/18 Care time: The patient presented to the Emergency Department on the above date and was hospitalized for further evaluation of their emergent condition. - New Patient This patient is new to me today: No - Critical Care Critical Care patient: Yes Total Critical Care Time (in minutes): 36 Critical Care Statement: The care of this patient involved high complexity decision making to prevent further life threatening deterioration of the patient 's condition and/or to evaluate & treat vital organ system(s) failure or risk of failure.
[2018-05-22] MEDS ORDERED: LABETALOL HCL 5 MG/1 ML (100MG/20 ML VIAL) IVPUSH ONE (16:06)
[2018-05-22] MEDS: ATORVASTATIN CA 80 MG TABLET (FP) PO SCH (21:51)
[2018-05-22] MEDS: INSULIN (LEVEMIR) 100 UNITS/ML UNITS SQ SCH (22:09)
[2018-05-23] MEDS ORDERED: PIPERACILLIN/TAZOBACTAM 3.375 GM VIAL IVPB ONE ×3 (01:24→17:51)
[2018-05-23] MEDS ORDERED: DEXTROSE 5%-WATER - 50 ML IVPB ONE ×3 (01:24→17:51)
[2018-05-23] MEDS: PIPERACILLIN/TAZOB 3.375 GM 3.375 GM in DEXTROSE 5%-WATER - 50 ML IVPB SCH ×3 (01:35→18:14)
[2018-05-23] MEDS ORDERED: LABETALOL HCL 100 MG TABLET (FP) ONE ×3 (05:50→21:01)
[2018-05-23] MEDS ORDERED: LABETALOL HCL 200 MG TABLET (FP) ONE ×3 (05:50→21:01)
[2018-05-23 05:52] LABS: BASO % 0.3 % (0-2.0); HEMATOCRIT 32.4 % (35.4-49); HEMOGLOBIN 10.5 GM/dL (11.7-16.9); LYMPH % 9.8 % (8-40); MCH 27.5 pg (25.7-33.7); MCHC 32.4 g/dl (32.0-35.9); MEAN CELL VOLUME 84.7 fl (80-96); MEAN PLT VOLUME 12.2 fl (7.5-11.1); MONO % 4.6 % (3.8-10.2); NEUT % 84.3 % (42.8-82.8); PLATELET COUNT 123 K/MM3 (134-434); RBC 3.82 M/mm3 (4.00-5.60); RDW 13.7 % (11.9-15.9); WHITE BLOOD COUNT 10.9 K/mm3 (4.0-10.0)
[2018-05-23] MEDS: LABETALOL HCL 200 MG, LABETALOL HCL 100 MG PO SCH ×3 (05:53→21:11)
[2018-05-23] MEDS: HEPARIN NA (PORCINE) 5,000 UNITS/ML 1ML VIAL SQ SCH ×3 (05:53→21:11)
[2018-05-23] MEDS: DOCUSATE SODIUM 100 MG CAPSULE (FP) PO SCH ×3 (05:53→21:13)
[2018-05-23] MEDS: INSULIN SLIDING SCALE (NOVOLOG) 1 VIAL SQ SCH ×5 (06:01→21:13)
[2018-05-23 06:23] LABS: ALBUMIN 2.1 g/dl (3.4-5.0); ALK PHOS 116 U/L (45-117); ANION GAP 3 MMOL/L (8-16); BILIRUBIN,TOTAL 0.4 mg/dL (0.2-1); BLOOD UREA NITROGEN 45 mg/dL (7-18); CHLORIDE 111 mmol/L (98-107); CO2 30 mmol/L (21-32); CREATININE 0.9 mg/dL (0.55-1.3); GLUCOSE,RANDOM 240 mg/dL (74-106); MAGNESIUM 2.6 mg/dL (1.8-2.4); PHOSPHOROUS 3.6 mg/dL (2.5-4.9); POTASSIUM 4.5 mmol/L (3.5-5.1); SGOT/AST 36 U/L (15-37); SGPT/ALT 29 U/L (13-61); SODIUM 143 mmol/L (136-145); TOT PROT 5.5 g/dl (6.4-8.2)
--- NOTE | 2018-05-23 09:25 | PN ---
Progress Note, Physician - Current Medication List Current Medications: Active Medications Acetaminophen (Tylenol -) 650 mg PO Q6H PRN PRN Reason: FEVER Last Admin: 05/21/18 21:22 Dose: 650 mg Amlodipine Besylate (Norvasc -) 10 mg PO DAILY [facility] Last Admin: 05/22/18 11:41 Dose: 10 mg Aspirin (Ecotrin -) 81 mg PO DAILY [facility] Last Admin: 05/22/18 09:29 Dose: 81 mg Atorvastatin Calcium (Lipitor -) 80 mg PO HS [facility] Last Admin: 05/22/18 21:51 Dose: 80 mg Dexamethasone (Decadron -) 2 mg NGT DAILY [facility] Docusate Sodium (Colace -) 100 mg PO TID [facility] Last Admin: 05/23/18 05:53 Dose: 100 mg Heparin Sodium (Porcine) (Heparin -) 5,000 unit SQ TID [facility] Last Admin: 05/23/18 05:53 Dose: 5,000 unit Propofol (Diprivan -) 1,000,000 mcg in 100 mls @ 2.507 mls/hr IVPB TITR [facility]; Protocol Last Titration: 05/20/18 21:32 Dose: 10 mcg/kg/min, 5.013 mls/hr Piperacillin Sod/Tazobactam (Sod 3.375 gm/ Dextrose) 50 mls @ 100 mls/hr IVPB Q8H-IV [facility]; Protocol Last Admin: 05/23/18 01:35 Dose: 100 mls/hr Vancomycin HCl (Vancomycin (Pre-Docked)) 1,000 mg in 250 mls @ 200 mls/hr IVPB Q24H [facility]; Protocol Last Admin: 05/22/18 11:31 Dose: 200 mls/hr Insulin Aspart (Novolog Vial Sliding Scale -) 1 vial SQ ACHS [facility]; Protocol Last Admin: 05/23/18 06:01 Dose: 8 units Insulin Detemir (Levemir Vial) 14 units SQ HS [facility] Last Admin: 05/22/18 22:09 Dose: 14 units Labetalol HCl 200 mg/ (Labetalol HCl 100 mg) 300 mg PO TID [facility] Last Admin: 05/23/18 05:53 Dose: 300 mg Levetiracetam (Keppra Injection -) 500 mg IVPB BID [facility] Last Admin: 05/22/18 21:49 Dose: 500 mg Lisinopril (Prinivil) 10 mg PO DAILY [facility] Ondansetron HCl (Zofran Injection) 4 mg IVPUSH Q6H PRN PRN Reason: NAUSEA AND/OR VOMITING Last Admin: 05/11/18 19:00 Dose: 4 mg Pantoprazole Sodium (Protonix Iv) 40 mg IVPUSH DAILY [facility] Last Admin: 05/22/18 09:28 Dose: 40 mg - Objective Vital Signs: Vital Signs Temperature 98.6 F 05/23/18 06:00 Pulse Rate 98 H 05/23/18 08:00 Respiratory Rate 26 H 05/23/18 08:00 Blood Pressure 136/66 05/23/18 08:00 O2 Sat by Pulse Oximetry (%) 99 05/22/18 21:00 Cardiovascular: Yes: S1, S2 Respiratory: Yes: Diminished, On Nasal O2 Gastrointestinal: Yes: Normal Bowel Sounds, Soft Labs: CBC, BMP 05/23/18 05:30 05/23/18 05:30 INR, PTT INR 1.06 (0.83-1.09) 05/10/18 16:15 Problem List - Problems (1) Intracranial bleed Code(s): I62.9 - NONTRAUMATIC INTRACRANIAL HEMORRHAGE, UNSPECIFIED (2) Diabetes Code(s): E11.9 - TYPE 2 DIABETES MELLITUS WITHOUT COMPLICATIONS (3) HTN (hypertension) Code(s): I10 - ESSENTIAL (PRIMARY) HYPERTENSION (4) Respiratory failure Code(s): J96.90 - RESPIRATORY FAILURE, UNSP, UNSP W HYPOXIA OR HYPERCAPNIA Assessment/Plan - Problems (1) QI (acute kidney injury) Assessment/Plan: -continues with hypernatremia, cont to monitor -Nephrology on board -Cr stable -Kidney US showed no hydronephrosis or stones b/l Code(s): N17.9 - ACUTE KIDNEY FAILURE, UNSPECIFIED (2) Diabetes Assessment/Plan: -A1c at 7.8 -BGM QID -On Insulin drip -Tube feed glucerna -RD on board Code(s): E11.9 - TYPE 2 DIABETES MELLITUS WITHOUT COMPLICATIONS (3) HTN (hypertension) Assessment/Plan: -On Labetalol, lisinopril and amlodipine Code(s): I10 - ESSENTIAL (PRIMARY) HYPERTENSION (4) Hypernatremia Assessment/Plan: -nephrology on board -2/2 Decadron -cont monitor Code(s): E87.0 - HYPEROSMOLALITY AND HYPERNATREMIA (5) Intracranial bleed Code(s): I62.9 - NONTRAUMATIC INTRACRANIAL HEMORRHAGE, UNSPECIFIED (6) Respiratory failure Assessment/Plan: -Pulmonary on board -off vent -Bronchodilators -IV abx -Daily ABG Code(s): J96.90 - RESPIRATORY FAILURE, UNSP, UNSP W HYPOXIA OR HYPERCAPNIA (7) S/P craniotomy Assessment/Plan: -Neurosurgery on board -On decadron Code(s): Z98.890 - OTHER SPECIFIED POSTPROCEDURAL STATES (8) Sepsis Assessment/Plan: -Cultures: Microbiology 05/15/18 19:45 Blood - Peripheral Venous Blood Culture - Final NO GROWTH AFTER 5 DAYS INCUBATION 05/15/18 19:35 Blood - Peripheral Venous Blood Culture - Final NO GROWTH AFTER 5 DAYS INCUBATION 05/15/18 19:15 Urine - Urine Smith Urine Culture - Final Enterococcus Faecalis 05/15/18 19:15 Sputum - Endotrachea Suction/Ventilator Gram Stain - Final 05/15/18 19:15 Sputum - Endotrachea Suction/Ventilator Sputum Culture - Final Mr S Aureus Klebsiella Pneumoniae Diphtheroid/Corynebacterium 05/13/18 10:45 Blood - Peripheral Venous Blood Culture - Final NO GROWTH AFTER 5 DAYS INCUBATION 05/13/18 11:00 Blood - Peripheral Venous Blood Culture - Final NO GROWTH AFTER 5 DAYS INCUBATION 05/15/18 19:15 Urine For Antigen Detection Legionella Antigen - Final 05/15/18 19:15 Urine For Antigen Detection Streptococcus pneumoniae Antigen (M - Final 05/13/18 12:30 Urine - Urine Smith Urine Culture - Final NO GROWTH OBTAINED -ID on board -IV Zosyn -febrile overnight Code(s): A41.9 - SEPSIS, UNSPECIFIED ORGANISM Assessment/Plan see problem list DVT prophylaxis Palliative care
[2018-05-23] MEDS: amLODIPine BESYLATE 10 MG TABLET (FP) PO SCH (10:00)
[2018-05-23] MEDS: LISINOPRIL 10 MG TABLET (FP) PO SCH (10:00)
[2018-05-23] MEDS: ASPIRIN COATED 81 MG TABLET.EC PO SCH (10:00)
[2018-05-23] MEDS: DEXAMETHASONE 4 MG TABLET (FP) NGT SCH (10:36)
[2018-05-23] MEDS: PANTOPRAZOLE SODIUM 40 MG VIAL IVPUSH SCH (10:40)
[2018-05-23] MEDS: levETIRAcetam 500 MG/5 ML INJECTION VIAL IVPB SCH ×2 (11:00→21:11)
--- NOTE | 2018-05-23 11:03 | PN ---
Progress Note, [employer] - Note Progress Note: s/p craniotomy. Asked to reassess, extubated yesterday. Now on hi flow. Respiration seems comfortable. Opened his eyes when name was called and RR increased to 31. Unfortunately, pt is not following any commands eg close eyes, stick out tongue, squeeze my hand. Eyes open but did not track, Maybe rare response to visual threat. Eyes did move side to side slightly but vision did not seem functional? Pt is a full code. Rec: PEG insertion if family wants everything done? Rehab potential looks grim. 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 VTach with intensive speech tx but not optomistic about potential.
--- NOTE | 2018-05-23 11:15 | PN ---
Physical Exam: SUBJECTIVE: Patient seen and examined at bedside. He was extubated yesterday. Appeared to have abdominal breathing and mild respiratory distress so we placed patient on high flow NC. He has not desaturated on high flow. He does appear to occasionally breath with his abdomen. Speech and swallow came to evaluate the patient today and unfortunately it does not appear promising for him to be able to eat, drink, or swallow. Moving forward he would likely need a PEG tube. Patient's sister and niece came to see him last night. They are not ready to make the patient DNR/DNI. They are still hoping for more recovery. OBJECTIVE: Vital Signs Period Temp Pulse Resp BP Sys/Goel Pulse Ox Last 24 Hr 98.2 F-99.6 F 89-102 15-28 122-179/66-114 96-99 GENERAL: The patient is extubated, on high flow NC, awake, and stares blankly around the room. HEAD: Surgical head dressing. No erythematous areas. EYES: PERRL, sclera anicteric, conjunctiva clear. ENT: Ears normal, nares patent, moist mucous membranes. NECK: Trachea midline. LUNGS: Coarse breath sounds bilaterally. no crackles. mildly labored breathing with abdominal muscles. HEART: Regular rate and irregular rhythm, S1, S2 without murmur, rub or gallop. ABDOMEN: Soft, nondistended, normoactive bowel sounds. EXTREMITIES: 2+ pulses, warm, well-perfused, no edema. NEUROLOGICAL: Pupils equal and reactive. + gag reflex. Patient blinks with stimuli. Tough to assess further. PSYCH: Poor eye contact. SKIN: Warm, dry, normal turgor, no rashes or lesions noted Laboratory Results - last 24 hr 05/23/18 05/23/18 05:30 05:30 WBC 10.9 H RBC 3.82 L Hgb 10.5 L Hct 32.4 L MCV 84.7 MCH 27.5 MCHC 32.4 RDW 13.7 Plt Count 123 L MPV 12.2 H Absolute Neuts (auto) 9.2 H Neutrophils % 84.3 H Lymphocytes % 9.8 Monocytes % 4.6 Eosinophils % 1.0 D Basophils % 0.3 Nucleated RBC % 0 Sodium 143 Potassium 4.5 Chloride 111 H Carbon Dioxide 30 Anion Gap 3 L BUN 45 H Creatinine 0.9 Creat Clearance w eGFR > 60 Random Glucose 240 H Calcium 8.0 L Phosphorus 3.6 Magnesium 2.6 H Total Bilirubin 0.4 AST 36 ALT 29 Alkaline Phosphatase 116 Total Protein 5.5 L Albumin 2.1 L Active Medications Generic Name Dose Route Start Last Admin Trade Name Freq PRN Reason Stop Dose Admin Acetaminophen 650 mg 05/13/18 10:24 05/21/18 21:22 Tylenol - PO 650 mg Q6H PRN Administration FEVER Amlodipine Besylate 10 mg 05/13/18 10:00 05/22/18 11:41 Norvasc - PO 10 mg DAILY [facility] Administration Aspirin 81 mg 05/15/18 10:00 05/22/18 09:29 Ecotrin - PO 81 mg DAILY [facility] Administration Atorvastatin Calcium 80 mg 05/13/18 22:00 05/22/18 21:51 Lipitor - PO 80 mg HS [facility] Administration Dexamethasone 2 mg 05/23/18 10:00 Decadron - NGT DAILY [facility] Docusate Sodium 100 mg 05/11/18 22:00 05/23/18 05:53 Colace - PO 100 mg TID [facility] Administration Heparin Sodium (Porcine) 5,000 unit 05/19/18 06:00 05/23/18 05:53 Heparin - SQ 5,000 unit TID [facility] Administration Propofol 1,000,000 mcg in 100 mls @ 2.507 mls/hr 05/14/18 23:45 05/20/18 21: 32 Diprivan - IVPB 10 mcg/kg/min TITR [facility] 5.013 mls/hr Titration Protocol 5 MCG/KG/MIN Piperacillin Sod/Tazobactam 50 mls @ 100 mls/hr 05/15/18 18:00 05/23/18 01:35 Sod 3.375 gm/ Dextrose IVPB 100 mls/hr Q8H-IV [facility] Administration Protocol Vancomycin HCl 1,000 mg in 250 mls @ 200 mls/hr 05/19/18 11:30 05/22/18 11:31 Vancomycin (Pre-Docked) IVPB 200 mls/hr Q24H [facility] Administration Protocol Insulin Aspart 1 vial 05/22/18 11:00 05/23/18 06:01 Novolog Vial Sliding Scale - SQ 8 units ACHS [facility] Administration Protocol Insulin Detemir 14 units 05/22/18 22:00 05/22/18 22:09 Levemir Vial SQ 14 units HS [facility] Administration Labetalol HCl 200 mg/ 300 mg 05/13/18 14:00 05/23/18 05:53 Labetalol HCl 100 mg PO 300 mg TID [facility] Administration Levetiracetam 500 mg 05/11/18 22:00 05/22/18 21:49 Keppra Injection - IVPB 500 mg BID [facility] Administration Lisinopril 10 mg 05/22/18 12:15 Prinivil PO DAILY [facility] Ondansetron HCl 4 mg 05/11/18 17:57 05/11/18 19:00 Zofran Injection IVPUSH 4 mg Q6H PRN Administration NAUSEA AND/OR VOMITING Pantoprazole Sodium 40 mg 05/12/18 10:00 05/22/18 09:28 Protonix Iv IVPUSH 40 mg DAILY [facility] Administration ASSESSMENT/PLAN: Assessment: 67 yo M w a hx of AFIB, recent hemorrhagic CVA, T2DM is here s/p Left frontal craniotomy and blood clot removal after being operated on by Dr. Taveras. There are X-ray changes which suggest an infiltrate or atelectasis in the left base. Patient is doing well on High flow NC. We will try to gradually wean off high flow. QI improving. BUN today - 45, Cr 0.9. We have tapered his decadron to 2 daily. Will continue this for 2 days then stop his decadron. Sugar has been well controlled on sliding scale. Plan: Nephro: - QI - likely Pre-renal injury. Improving. - Kidney US showed no hydronephrosis or stones b/l - Urine lites support pre-renal injury. - Renal on board Cardio: - Strict BP control with systolic < 130 - Lebatalol for elevated BP or rate control PRN - Patient is on home meds ID: - ID consulted - PNA: Abx for HCAP vs aspiration. - Positive Strep pneumo in the urine. - Positive MRSA in sputum - Positive E fecalis in urine - Vanc and zosyn being given - Contact precautions Pulm: - Extubated - Currently on high flow NC - Will try to wean off high flow - ABG daily - try to avoid re-intubating the patient. - Attempt Bi-PAP before re-intubation. Neuro: - Daily sedation vacations to assess mental status - Keppra 500 mg for seizure prohylaxis. - Head of the bead 30 degrees. GI: - Aspiration precautions. - Protonix 40 - Zofran PRN Endo: - Decadron to 2 daily - Sliding scale - frequent glucose checks Prophylaxis: - Aspiration precautions. - Heparin 5000 TID F/E/N: - Tube Feeds with glucerna via NG tube - Elevated potassium from yesterday resolved with kayexalate. - No standing fluids today Code Status: - Full code - Continue to speak with family regarding goals of care Dispo: - Patient will continue to receive monitoring in the ICU. Visit type - Emergency Visit Emergency Visit: Yes ED Registration Date: 05/10/18 Care time: The patient presented to the Emergency Department on the above date and was hospitalized for further evaluation of their emergent condition. - New Patient This patient is new to me today: No - Critical Care Critical Care patient: Yes Total Critical Care Time (in minutes): 36 Critical Care Statement: The care of this patient involved high complexity decision making to prevent further life threatening deterioration of the patient 's condition and/or to evaluate & treat vital organ system(s) failure or risk of failure.
[2018-05-23] MEDS: VANCOMYCIN 1 GRAM (PRE-DOCKED) 1,000 MG/250 ML BAG IVPB SCH (12:00)
--- NOTE | 2018-05-23 12:02 | PN ---
Teaching Attending Note Name of Resident: Can Ledbetter ATTENDING PHYSICIAN STATEMENT I saw and evaluated the patient. I reviewed the resident's note and discussed the case with the resident. I agree with the resident's findings and plan as documented. SUBJECTIVE: Pt seen and examined in the ICU. Extubated yesterday to HFOT. On 50L 50% FiO2. OBJECTIVE: Vital Signs Period Temp Pulse Resp BP Sys/Goel Pulse Ox Last 24 Hr 98.2 F-99.6 F 89-102 15-28 122-179/66-114 96-99 Intake & Output 05/20/18 05/21/18 05/22/18 05/23/18 23:59 23:59 23:59 23:59 Intake Total 2543 3475.0 3534 1142 Output Total 1999 1900 2200 500 Balance 543 1575.0 1334 642 Weight 77.519 kg 78.67 kg 76.929 kg 77.7 kg Gen: tachypneic at rest, nonverbal Heart: RRR Lung: scattered rhonchi Abd: soft, nontender Ext: no edema CBC, BMP 05/23/18 05:30 05/23/18 05:30 Active Medications Acetaminophen (Tylenol -) 650 mg PO Q6H PRN PRN Reason: FEVER Last Admin: 05/21/18 21:22 Dose: 650 mg Amlodipine Besylate (Norvasc -) 10 mg PO DAILY [facility] Last Admin: 05/22/18 11:41 Dose: 10 mg Aspirin (Ecotrin -) 81 mg PO DAILY [facility] Last Admin: 05/22/18 09:29 Dose: 81 mg Atorvastatin Calcium (Lipitor -) 80 mg PO HS [facility] Last Admin: 05/22/18 21:51 Dose: 80 mg Dexamethasone (Decadron -) 2 mg NGT DAILY [facility] Docusate Sodium (Colace -) 100 mg PO TID [facility] Last Admin: 05/23/18 05:53 Dose: 100 mg Heparin Sodium (Porcine) (Heparin -) 5,000 unit SQ TID [facility] Last Admin: 05/23/18 05:53 Dose: 5,000 unit Propofol (Diprivan -) 1,000,000 mcg in 100 mls @ 2.507 mls/hr IVPB TITR [facility]; Protocol Last Titration: 05/20/18 21:32 Dose: 10 mcg/kg/min, 5.013 mls/hr Piperacillin Sod/Tazobactam (Sod 3.375 gm/ Dextrose) 50 mls @ 100 mls/hr IVPB Q8H-IV [facility]; Protocol Last Admin: 05/23/18 01:35 Dose: 100 mls/hr Vancomycin HCl (Vancomycin (Pre-Docked)) 1,000 mg in 250 mls @ 200 mls/hr IVPB Q24H [facility]; Protocol Last Admin: 05/22/18 11:31 Dose: 200 mls/hr Insulin Aspart (Novolog Vial Sliding Scale -) 1 vial SQ ACHS [facility]; Protocol Last Admin: 05/23/18 06:01 Dose: 8 units Insulin Detemir (Levemir Vial) 14 units SQ HS [facility] Last Admin: 05/22/18 22:09 Dose: 14 units Labetalol HCl 200 mg/ (Labetalol HCl 100 mg) 300 mg PO TID [facility] Last Admin: 05/23/18 05:53 Dose: 300 mg Levetiracetam (Keppra Injection -) 500 mg IVPB BID [facility] Last Admin: 05/22/18 21:49 Dose: 500 mg Lisinopril (Prinivil) 10 mg PO DAILY [facility] Ondansetron HCl (Zofran Injection) 4 mg IVPUSH Q6H PRN PRN Reason: NAUSEA AND/OR VOMITING Last Admin: 05/11/18 19:00 Dose: 4 mg Pantoprazole Sodium (Protonix Iv) 40 mg IVPUSH DAILY [facility] Last Admin: 05/22/18 09:28 Dose: 40 mg ASSESSMENT AND PLAN: 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
[2018-05-23] MEDS ORDERED: BENZOIN/ALOE VERA/STORAX/TOLU 58 ML BOTTLE ONE (16:21)
--- NOTE | 2018-05-23 17:02 | PN ---
Progress Note, Physician History of Present Illness: Pt seen and examined at bedside. He is now extubated. He pulled his NG tube out and has not been getting feeds or free water. - Current Medication List Current Medications: Active Medications Acetaminophen (Tylenol -) 650 mg PO Q6H PRN PRN Reason: FEVER Last Admin: 05/21/18 21:22 Dose: 650 mg Amlodipine Besylate (Norvasc -) 10 mg PO DAILY [facility] Last Admin: 05/23/18 10:00 Dose: 10 mg Aspirin (Ecotrin -) 81 mg PO DAILY [facility] Last Admin: 05/23/18 10:00 Dose: 81 mg Atorvastatin Calcium (Lipitor -) 80 mg PO HS [facility] Last Admin: 05/22/18 21:51 Dose: 80 mg Dexamethasone (Decadron -) 2 mg NGT DAILY [facility] Last Admin: 05/23/18 10:36 Dose: 2 mg Docusate Sodium (Colace -) 100 mg PO TID [facility] Last Admin: 05/23/18 05:53 Dose: 100 mg Heparin Sodium (Porcine) (Heparin -) 5,000 unit SQ TID [facility] Last Admin: 05/23/18 05:53 Dose: 5,000 unit Propofol (Diprivan -) 1,000,000 mcg in 100 mls @ 2.507 mls/hr IVPB TITR [facility]; Protocol Last Titration: 05/20/18 21:32 Dose: 10 mcg/kg/min, 5.013 mls/hr Piperacillin Sod/Tazobactam (Sod 3.375 gm/ Dextrose) 50 mls @ 100 mls/hr IVPB Q8H-IV [facility]; Protocol Last Admin: 05/23/18 11:00 Dose: 100 mls/hr Vancomycin HCl (Vancomycin (Pre-Docked)) 1,000 mg in 250 mls @ 200 mls/hr IVPB Q24H [facility]; Protocol Last Admin: 05/23/18 12:00 Dose: 200 mls/hr Insulin Aspart (Novolog Vial Sliding Scale -) 1 vial SQ ACHS [facility]; Protocol Last Admin: 05/23/18 13:59 Dose: 10 units Insulin Detemir (Levemir Vial) 14 units SQ HS [facility] Last Admin: 05/22/18 22:09 Dose: 14 units Labetalol HCl 200 mg/ (Labetalol HCl 100 mg) 300 mg PO TID [facility] Last Admin: 05/23/18 05:53 Dose: 300 mg Levetiracetam (Keppra Injection -) 500 mg IVPB BID [facility] Last Admin: 05/23/18 11:00 Dose: 500 mg Lisinopril (Prinivil) 10 mg PO DAILY [facility] Last Admin: 05/23/18 10:00 Dose: 10 mg Ondansetron HCl (Zofran Injection) 4 mg IVPUSH Q6H PRN PRN Reason: NAUSEA AND/OR VOMITING Last Admin: 05/11/18 19:00 Dose: 4 mg Pantoprazole Sodium (Protonix Iv) 40 mg IVPUSH DAILY [facility] Last Admin: 05/23/18 10:40 Dose: 40 mg - Objective Vital Signs: Vital Signs Temperature 98.6 F 05/23/18 14:00 Pulse Rate 92 H 05/23/18 14:00 Respiratory Rate 25 H 05/23/18 14:00 Blood Pressure 137/73 05/23/18 14:00 O2 Sat by Pulse Oximetry (%) 96 05/23/18 08:50 Constitutional: Yes: Calm Eyes: Yes: Conjunctiva Clear HENT: Yes: Atraumatic Neck: Yes: Supple Cardiovascular: Yes: S1, S2 Respiratory: Yes: Rhonchi Gastrointestinal: Yes: Soft Genitourinary: Yes: Smith Present Musculoskeletal: Yes: Muscle Weakness Edema: No Neurological: Yes: Confusion Labs: CBC, BMP 05/23/18 05:30 05/23/18 05:30 INR, PTT INR 1.06 (0.83-1.09) 05/10/18 16:15 - ....Imaging Chest X-ray: Report Reviewed Problem List - Problems (1) Hypernatremia Code(s): E87.0 - HYPEROSMOLALITY AND HYPERNATREMIA (2) QI (acute kidney injury) Code(s): N17.9 - ACUTE KIDNEY FAILURE, UNSPECIFIED (3) Diabetes Code(s): E11.9 - TYPE 2 DIABETES MELLITUS WITHOUT COMPLICATIONS Assessment/Plan Current Medications Generic Name Dose Route Start Last Admin Trade Name Freq PRN Reason Stop Dose Admin Acetaminophen 650 mg 05/13/18 10:24 05/21/18 21:22 Tylenol - PO 650 mg Q6H PRN Administration FEVER Amlodipine Besylate 10 mg 05/13/18 10:00 05/23/18 10:00 Norvasc - PO 10 mg DAILY [facility] Administration Aspirin 81 mg 05/15/18 10:00 05/23/18 10:00 Ecotrin - PO 81 mg DAILY [facility] Administration Atorvastatin Calcium 80 mg 05/13/18 22:00 05/22/18 21:51 Lipitor - PO 80 mg HS [facility] Administration Dexamethasone 2 mg 05/23/18 10:00 05/23/18 10:36 Decadron - NGT 2 mg DAILY [facility] Administration Docusate Sodium 100 mg 05/11/18 22:00 05/23/18 05:53 Colace - PO 100 mg TID [facility] Administration Heparin Sodium (Porcine) 5,000 unit 05/19/18 06:00 05/23/18 05:53 Heparin - SQ 5,000 unit TID [facility] Administration Propofol 1,000,000 mcg in 100 mls @ 2.507 mls/hr 05/14/18 23:45 05/20/18 21: 32 Diprivan - IVPB 10 mcg/kg/min TITR [facility] 5.013 mls/hr Titration Protocol 5 MCG/KG/MIN Piperacillin Sod/Tazobactam 50 mls @ 100 mls/hr 05/15/18 18:00 05/23/18 11:00 Sod 3.375 gm/ Dextrose IVPB 100 mls/hr Q8H-IV [facility] Administration Protocol Vancomycin HCl 1,000 mg in 250 mls @ 200 mls/hr 05/19/18 11:30 05/23/18 12:00 Vancomycin (Pre-Docked) IVPB 200 mls/hr Q24H [facility] Administration Protocol Insulin Aspart 1 vial 05/22/18 11:00 05/23/18 13:59 Novolog Vial Sliding Scale - SQ 10 units ACHS [facility] Administration Protocol Insulin Detemir 14 units 05/22/18 22:00 05/22/18 22:09 Levemir Vial SQ 14 units HS [facility] Administration Labetalol HCl 200 mg/ 300 mg 05/13/18 14:00 05/23/18 05:53 Labetalol HCl 100 mg PO 300 mg TID [facility] Administration Levetiracetam 500 mg 05/11/18 22:00 05/23/18 11:00 Keppra Injection - IVPB 500 mg BID [facility] Administration Lisinopril 10 mg 05/22/18 12:15 05/23/18 10:00 Prinivil PO 10 mg DAILY [facility] Administration Ondansetron HCl 4 mg 05/11/18 17:57 05/11/18 19:00 Zofran Injection IVPUSH 4 mg Q6H PRN Administration NAUSEA AND/OR VOMITING Pantoprazole Sodium 40 mg 05/12/18 10:00 05/23/18 10:40 Protonix Iv IVPUSH 40 mg DAILY [facility] Administration Impression 1. QI 2. hypernatremia 3. hemorrhagic CVA 4. DM 5. a-fib 6. Acute Respiratory Failure 7. s/p Left frontal craniotomy, excision of thalamic hermorrhagic mass 8. hyperkalemia Plan - sodium is improved - potassium is stable - will decrease flushes to 75 cc when feeds are restarted - repeat labs in am to monitor sodium - monitor bp - discussed with ICU team Dr Davies
--- NOTE | 2018-05-23 17:15 | PN ---
Progress Note (short form) - Note Progress Note: 67 year old male history of DM, Neuropathy, had recent brain bleed, he also have history of atrial fibrillation. Patient fell out of wheel chair. He has ct scan done showed left basal ganglia bleed and old right parietal lobe infarct. He underwent craniotomy by Dr Aden and clot removal. He has been extubated and on high flow oxygen. He is not able to follow command. no acute distress Neurological Examination( Limited Neuro exam) He is opens his eye and track object, not able to follow command right sided hemiparesis pupils is reactive, small, mild right facial palsy CT report reviewed Assessment: left basal ganglia bleed with intra ventricular extension. S/P Craniotomy on May 11 and clot removal. Plan: 1. continue keppra for now, will not require for nursing home Continue to follow with primary team Thanking you so much Avelino Phoenix MD
[2018-05-23] MEDS ORDERED: ACETYLCYSTEINE 20% 200MG/ML 30 ML VIAL *FOR ORAL / INH USE ONLY NEB ONE (20:17)
[2018-05-23] MEDS ORDERED: ALBUTEROL SO4 0.083% IH SOL 2.5 MG/3 ML VIAL.NEB. NEB ONE (20:17)
[2018-05-23] MEDS ORDERED: ACETYLCYSTEINE 20% 200MG/ML 4 ML VIAL *FOR ORAL / INH USE ONLY ONE (20:32)
[2018-05-23] MEDS: ATORVASTATIN CA 80 MG TABLET (FP) PO SCH (21:11)
[2018-05-23] MEDS: INSULIN (LEVEMIR) 100 UNITS/ML UNITS SQ SCH (21:13)
[2018-05-24] MEDS ORDERED: DEXTROSE 5%-WATER - 50 ML IVPB ONE ×3 (01:24→17:45)
[2018-05-24] MEDS ORDERED: PIPERACILLIN/TAZOBACTAM 3.375 GM VIAL IVPB ONE ×3 (01:24→17:45)
[2018-05-24] MEDS: PIPERACILLIN/TAZOB 3.375 GM 3.375 GM in DEXTROSE 5%-WATER - 50 ML IVPB SCH ×3 (02:31→17:59)
[2018-05-24] MEDS ORDERED: LABETALOL HCL 200 MG TABLET (FP) ONE ×2 (05:53→14:53)
[2018-05-24] MEDS ORDERED: LABETALOL HCL 100 MG TABLET (FP) ONE ×2 (05:53→14:53)
[2018-05-24] MEDS: HEPARIN NA (PORCINE) 5,000 UNITS/ML 1ML VIAL SQ SCH ×3 (06:01→22:20)
[2018-05-24] MEDS: LABETALOL HCL 200 MG, LABETALOL HCL 100 MG PO SCH ×3 (06:01→22:20)
[2018-05-24] MEDS: DOCUSATE SODIUM 100 MG CAPSULE (FP) PO SCH ×3 (06:01→22:20)
[2018-05-24 06:18] LABS: BASO % 0.2 % (0-2.0); EOS % 0.3 % (0-4.5); HEMATOCRIT 31.8 % (35.4-49); HEMOGLOBIN 10.4 GM/dL (11.7-16.9); LYMPH % 9.2 % (8-40); MCH 27.5 pg (25.7-33.7); MCHC 32.7 g/dl (32.0-35.9); MEAN CELL VOLUME 84.2 fl (80-96); MEAN PLT VOLUME 11.3 fl (7.5-11.1); NEUT % 86.3 % (42.8-82.8); PLATELET COUNT 113 K/MM3 (134-434); RBC 3.78 M/mm3 (4.00-5.60); RDW 13.9 % (11.9-15.9); WHITE BLOOD COUNT 11.3 K/mm3 (4.0-10.0)
[2018-05-24 06:22] LABS: ARTERIAL BLD GAS O2 SATURATION 97.9 % (90-98.9); ARTERIAL BLOOD GAS BASE EXCESS 2.9 meq/l (-2-2); ARTERIAL BLOOD GAS PCO2 39.8 mmHg (35-45); ARTERIAL BLOOD GAS pH 7.44 (7.35-7.45)
[2018-05-24 06:37] LABS: ALLENS TEST POSITIVE
[2018-05-24 06:51] LABS: ALBUMIN 2.1 g/dl (3.4-5.0); ALK PHOS 109 U/L (45-117); ANION GAP 8 MMOL/L (8-16); BILIRUBIN,TOTAL 0.6 mg/dL (0.2-1); BLOOD UREA NITROGEN 43 mg/dL (7-18); CALCIUM 7.9 mg/dL (8.5-10.1); CHLORIDE 112 mmol/L (98-107); CO2 27 mmol/L (21-32); CREATININE 0.9 mg/dL (0.55-1.3); GLUCOSE,RANDOM 138 mg/dL (74-106); MAGNESIUM 2.4 mg/dL (1.8-2.4); PHOSPHOROUS 3.7 mg/dL (2.5-4.9); POTASSIUM 4.4 mmol/L (3.5-5.1); SGOT/AST 28 U/L (15-37); SGPT/ALT 28 U/L (13-61); SODIUM 148 mmol/L (136-145); TOT PROT 5.4 g/dl (6.4-8.2)
[2018-05-24] MEDS: INSULIN SLIDING SCALE (NOVOLOG) 1 VIAL SQ SCH ×4 (07:05→22:20)
[2018-05-24] MEDS: ASPIRIN COATED 81 MG TABLET.EC PO SCH (09:31)
[2018-05-24] MEDS: levETIRAcetam 500 MG/5 ML INJECTION VIAL IVPB SCH ×2 (09:31→22:20)
[2018-05-24] MEDS: DEXAMETHASONE 4 MG TABLET (FP) NGT SCH (09:31)
[2018-05-24] MEDS: LISINOPRIL 10 MG TABLET (FP) PO SCH (09:31)
[2018-05-24] MEDS: amLODIPine BESYLATE 10 MG TABLET (FP) PO SCH (09:31)
[2018-05-24] MEDS: PANTOPRAZOLE SODIUM 40 MG VIAL IVPUSH SCH (09:31)
--- NOTE | 2018-05-24 09:42 | PN ---
Progress Note, Physician - Current Medication List Current Medications: Active Medications Acetaminophen (Tylenol -) 650 mg PO Q6H PRN PRN Reason: FEVER Last Admin: 05/21/18 21:22 Dose: 650 mg Amlodipine Besylate (Norvasc -) 10 mg PO DAILY [facility] Last Admin: 05/24/18 09:31 Dose: 10 mg Aspirin (Ecotrin -) 81 mg PO DAILY [facility] Last Admin: 05/24/18 09:31 Dose: 81 mg Atorvastatin Calcium (Lipitor -) 80 mg PO HS [facility] Last Admin: 05/23/18 21:11 Dose: 80 mg Dexamethasone (Decadron -) 2 mg NGT DAILY [facility] Last Admin: 05/24/18 09:31 Dose: 2 mg Docusate Sodium (Colace -) 100 mg PO TID [facility] Last Admin: 05/24/18 06:01 Dose: Not Given Heparin Sodium (Porcine) (Heparin -) 5,000 unit SQ TID [facility] Last Admin: 05/24/18 06:01 Dose: 5,000 unit Propofol (Diprivan -) 1,000,000 mcg in 100 mls @ 2.507 mls/hr IVPB TITR [facility]; Protocol Last Titration: 05/20/18 21:32 Dose: 10 mcg/kg/min, 5.013 mls/hr Piperacillin Sod/Tazobactam (Sod 3.375 gm/ Dextrose) 50 mls @ 100 mls/hr IVPB Q8H-IV [facility]; Protocol Last Admin: 05/24/18 09:32 Dose: 100 mls/hr Vancomycin HCl (Vancomycin (Pre-Docked)) 1,000 mg in 250 mls @ 200 mls/hr IVPB Q24H [facility]; Protocol Last Admin: 05/23/18 12:00 Dose: 200 mls/hr Insulin Aspart (Novolog Vial Sliding Scale -) 1 vial SQ ACHS [facility]; Protocol Last Admin: 05/24/18 07:05 Dose: Not Given Insulin Detemir (Levemir Vial) 14 units SQ HS [facility] Last Admin: 05/23/18 21:13 Dose: 14 units Labetalol HCl 200 mg/ (Labetalol HCl 100 mg) 300 mg PO TID [facility] Last Admin: 05/24/18 06:01 Dose: 300 mg Levetiracetam (Keppra Injection -) 500 mg IVPB BID [facility] Last Admin: 05/24/18 09:31 Dose: 500 mg Lisinopril (Prinivil) 10 mg PO DAILY [facility] Last Admin: 05/24/18 09:31 Dose: 10 mg Ondansetron HCl (Zofran Injection) 4 mg IVPUSH Q6H PRN PRN Reason: NAUSEA AND/OR VOMITING Last Admin: 05/11/18 19:00 Dose: 4 mg Pantoprazole Sodium (Protonix Iv) 40 mg IVPUSH DAILY [facility] Last Admin: 05/24/18 09:31 Dose: 40 mg - Objective Vital Signs: Vital Signs Temperature 98.2 F 05/24/18 06:57 Pulse Rate 90 05/24/18 08:00 Respiratory Rate 28 H 05/24/18 08:00 Blood Pressure 102/67 05/24/18 08:00 O2 Sat by Pulse Oximetry (%) 95 05/24/18 05:57 Cardiovascular: Yes: S1, S2 Respiratory: Yes: On BiPap Gastrointestinal: Yes: Normal Bowel Sounds, Soft Labs: CBC, BMP 05/24/18 05:30 05/24/18 05:30 INR, PTT INR 1.06 (0.83-1.09) 05/10/18 16:15 Problem List - Problems (1) Intracranial bleed Code(s): I62.9 - NONTRAUMATIC INTRACRANIAL HEMORRHAGE, UNSPECIFIED (2) Diabetes Code(s): E11.9 - TYPE 2 DIABETES MELLITUS WITHOUT COMPLICATIONS (3) HTN (hypertension) Code(s): I10 - ESSENTIAL (PRIMARY) HYPERTENSION (4) Respiratory failure Code(s): J96.90 - RESPIRATORY FAILURE, UNSP, UNSP W HYPOXIA OR HYPERCAPNIA Assessment/Plan - Problems (1) QI (acute kidney injury) Assessment/Plan: -continues with hypernatremia, cont to monitor -Nephrology on board -Cr stable -Kidney US showed no hydronephrosis or stones b/l Code(s): N17.9 - ACUTE KIDNEY FAILURE, UNSPECIFIED (2) Diabetes Assessment/Plan: -A1c at 7.8 -BGM QID -On Insulin drip -Tube feed glucerna -RD on board Code(s): E11.9 - TYPE 2 DIABETES MELLITUS WITHOUT COMPLICATIONS (3) HTN (hypertension) Assessment/Plan: -On Labetalol, lisinopril and amlodipine Code(s): I10 - ESSENTIAL (PRIMARY) HYPERTENSION (4) Hypernatremia Assessment/Plan: -nephrology on board -2/2 Decadron -cont monitor Code(s): E87.0 - HYPEROSMOLALITY AND HYPERNATREMIA (5) Intracranial bleed Code(s): I62.9 - NONTRAUMATIC INTRACRANIAL HEMORRHAGE, UNSPECIFIED (6) Respiratory failure Assessment/Plan: -Pulmonary on board -off vent -Bronchodilators -IV abx -Daily ABG Code(s): J96.90 - RESPIRATORY FAILURE, UNSP, UNSP W HYPOXIA OR HYPERCAPNIA (7) S/P craniotomy Assessment/Plan: -Neurosurgery on board -On decadron Code(s): Z98.890 - OTHER SPECIFIED POSTPROCEDURAL STATES (8) Sepsis Assessment/Plan: -Cultures: Microbiology 05/15/18 19:45 Blood - Peripheral Venous Blood Culture - Final NO GROWTH AFTER 5 DAYS INCUBATION 05/15/18 19:35 Blood - Peripheral Venous Blood Culture - Final NO GROWTH AFTER 5 DAYS INCUBATION 05/15/18 19:15 Urine - Urine Smith Urine Culture - Final Enterococcus Faecalis 05/15/18 19:15 Sputum - Endotrachea Suction/Ventilator Gram Stain - Final 05/15/18 19:15 Sputum - Endotrachea Suction/Ventilator Sputum Culture - Final Mr S Aureus Klebsiella Pneumoniae Diphtheroid/Corynebacterium 05/13/18 10:45 Blood - Peripheral Venous Blood Culture - Final NO GROWTH AFTER 5 DAYS INCUBATION 05/13/18 11:00 Blood - Peripheral Venous Blood Culture - Final NO GROWTH AFTER 5 DAYS INCUBATION 05/15/18 19:15 Urine For Antigen Detection Legionella Antigen - Final 05/15/18 19:15 Urine For Antigen Detection Streptococcus pneumoniae Antigen (M - Final 05/13/18 12:30 Urine - Urine Smith Urine Culture - Final NO GROWTH OBTAINED -ID on board -IV Zosyn -febrile overnight Code(s): A41.9 - SEPSIS, UNSPECIFIED ORGANISM Assessment/Plan see problem list DVT prophylaxis Palliative care
[2018-05-24] MEDS ORDERED: SUCCINYLCHOLINE CHLORIDE 200 MG/10 ML VIAL IVPUSH ONE (10:16)
[2018-05-24] MEDS ORDERED: PROPOFOL 200 MG/20 ML VIAL IVPUSH ONE (10:17)
[2018-05-24] MEDS ORDERED: PROPOFOL 1,000,000 MCG/100 ML VIAL ONE (10:18)
[2018-05-24] MEDS ORDERED: BENZOIN/ALOE VERA/STORAX/TOLU 58 ML BOTTLE ONE (10:29)
--- NOTE | 2018-05-24 11:22 | PROC ---
<Sunny Alvarado - Last Filed: 05/24/18 11:21> Intubation - Intubation Reason for Intubation: Airway Protection Intubation Method: orotracheal Tube Size (cm): 8.0 Tube position confirmed by: Direct visualization, CO2 detector, Chest x-ray, Breath sounds Breath Sounds after Intubation: equal Post Intubation Xray: Yes Remarks: lot of secretions present. <Ted Barnes MD - Last Filed: 05/24/18 13:02> Procedure Note Procedure: I supervised and was present during the entire procedure. Ted Barnes MD
[2018-05-24] MEDS ORDERED: SODIUM CHLORIDE 500 ML IV STA (11:26)
[2018-05-24] MEDS: PROPOFOL 1,000,000 MCG/100 ML VIAL IVPB SCH (11:36)
[2018-05-24] MEDS ORDERED: ACETYLCYSTEINE 20% 200MG/ML 30 ML VIAL *FOR ORAL / INH USE ONLY NEB SCH (12:00)
[2018-05-24] MEDS: ALBUTEROL SO4 0.083% IH SOL 2.5 MG/3 ML VIAL.NEB. NEB SCH ×3 (12:15→20:39)
[2018-05-24] MEDS: ACETYLCYSTEINE 20% 200MG/ML 4 ML VIAL *FOR ORAL / INH USE ONLY NEB SCH ×3 (12:15→20:39)
--- NOTE | 2018-05-24 12:47 | PN ---
Teaching Attending Note Name of Resident: Can Ledbetter ATTENDING PHYSICIAN STATEMENT I saw and evaluated the patient. I reviewed the resident's note and discussed the case with the resident. I agree with the resident's findings and plan as documented. SUBJECTIVE: Pt seen and examined in the ICU. Tachypneic with accessory muscle use on HFOT. CXR showing complete opacification of left hemithorax, subsequently intubated. Copious secretions in airway. OBJECTIVE: Vital Signs Period Temp Pulse Resp BP Sys/Goel Pulse Ox Last 24 Hr 97.5 F-98.6 F 80-102 17-34 91-161/65-98 94-95 Intake & Output 05/21/18 05/22/18 05/23/18 05/24/18 23:59 23:59 23:59 23:59 Intake Total 3475.0 3534 2084 100 Output Total 1900 2200 1800 500 Balance 1575.0 1334 284 -400 Weight 78.67 kg 76.929 kg 77.7 kg 75.5 kg Gen: intubated, sedated Heart: RRR Lung: bilateral rhonchi Abd: soft, nontender Ext: no edema CBC, BMP 05/24/18 05:30 05/24/18 05:30 Active Medications Acetaminophen (Tylenol -) 650 mg PO Q6H PRN PRN Reason: FEVER Last Admin: 05/21/18 21:22 Dose: 650 mg Acetylcysteine (Mucomyst 20 Oral / Inh Use Only*) 200 mg NEB RQID [facility] Albuterol Sulfate (Ventolin 0.083% Nebulizer Soln -) 1 amp NEB RQID [facility] Amlodipine Besylate (Norvasc -) 10 mg PO DAILY [facility] Last Admin: 05/24/18 09:31 Dose: 10 mg Aspirin (Ecotrin -) 81 mg PO DAILY [facility] Last Admin: 05/24/18 09:31 Dose: 81 mg Atorvastatin Calcium (Lipitor -) 80 mg PO HS [facility] Last Admin: 05/23/18 21:11 Dose: 80 mg Docusate Sodium (Colace -) 100 mg PO TID [facility] Last Admin: 05/24/18 06:01 Dose: Not Given Heparin Sodium (Porcine) (Heparin -) 5,000 unit SQ TID [facility] Last Admin: 05/24/18 06:01 Dose: 5,000 unit Propofol (Diprivan -) 1,000,000 mcg in 100 mls @ 2.507 mls/hr IVPB TITR [facility]; Protocol Last Admin: 05/24/18 11:36 Dose: 25 mcg/kg/min, 12.533 mls/hr Piperacillin Sod/Tazobactam (Sod 3.375 gm/ Dextrose) 50 mls @ 100 mls/hr IVPB Q8H-IV [facility]; Protocol Last Admin: 05/24/18 09:32 Dose: 100 mls/hr Vancomycin HCl (Vancomycin (Pre-Docked)) 1,000 mg in 250 mls @ 200 mls/hr IVPB Q24H [facility]; Protocol Last Admin: 05/23/18 12:00 Dose: 200 mls/hr Insulin Aspart (Novolog Vial Sliding Scale -) 1 vial SQ ACHS [facility]; Protocol Last Admin: 05/24/18 07:05 Dose: Not Given Insulin Detemir (Levemir Vial) 14 units SQ HS [facility] Last Admin: 05/23/18 21:13 Dose: 14 units Labetalol HCl 200 mg/ (Labetalol HCl 100 mg) 300 mg PO TID [facility] Last Admin: 05/24/18 06:01 Dose: 300 mg Levetiracetam (Keppra Injection -) 500 mg IVPB BID [facility] Last Admin: 05/24/18 09:31 Dose: 500 mg Lisinopril (Prinivil) 10 mg PO DAILY [facility] Last Admin: 05/24/18 09:31 Dose: 10 mg Ondansetron HCl (Zofran Injection) 4 mg IVPUSH Q6H PRN PRN Reason: NAUSEA AND/OR VOMITING Last Admin: 05/11/18 19:00 Dose: 4 mg Pantoprazole Sodium (Protonix Iv) 40 mg IVPUSH DAILY [facility] Last Admin: 05/24/18 09:31 Dose: 40 mg ASSESSMENT AND PLAN: 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 Acute Hypoxic Respiratory Failure Pneumonia Sepsis Atrial Fibrillation Acute Kidney Injury DM/Hyperglycemia - continue antibiotics - send sputum cultures - chest PT, pulmonary toilet - start albuterol/mucomyst - taper off decadron - antiepileptics per neuro - glucose control - aspiration precautions - DVT/GI prophylaxis - will need tracheostomy as this is his 3rd intubation and does not demonstrate ability to protect airway - continue ICU monitoring critical care time spent in reviewing chart, evaluating patient and formulating plan 35 min
[2018-05-24] MEDS: VANCOMYCIN 1 GRAM (PRE-DOCKED) 1,000 MG/250 ML BAG IVPB SCH (12:48)
--- NOTE | 2018-05-24 13:16 | PN ---
Progress Note, Physician History of Present Illness: Pt seen and examined at bedside. He was intubated. He is has not been getting feeds or free water. - Current Medication List Current Medications: Active Medications Acetaminophen (Tylenol -) 650 mg PO Q6H PRN PRN Reason: FEVER Last Admin: 05/21/18 21:22 Dose: 650 mg Acetylcysteine (Mucomyst 20 Oral / Inh Use Only*) 200 mg NEB RQID [facility] Albuterol Sulfate (Ventolin 0.083% Nebulizer Soln -) 1 amp NEB RQID [facility] Amlodipine Besylate (Norvasc -) 10 mg PO DAILY [facility] Last Admin: 05/24/18 09:31 Dose: 10 mg Aspirin (Ecotrin -) 81 mg PO DAILY [facility] Last Admin: 05/24/18 09:31 Dose: 81 mg Atorvastatin Calcium (Lipitor -) 80 mg PO HS [facility] Last Admin: 05/23/18 21:11 Dose: 80 mg Docusate Sodium (Colace -) 100 mg PO TID [facility] Last Admin: 05/24/18 06:01 Dose: Not Given Heparin Sodium (Porcine) (Heparin -) 5,000 unit SQ TID [facility] Last Admin: 05/24/18 06:01 Dose: 5,000 unit Propofol (Diprivan -) 1,000,000 mcg in 100 mls @ 2.507 mls/hr IVPB TITR [facility]; Protocol Last Admin: 05/24/18 11:36 Dose: 25 mcg/kg/min, 12.533 mls/hr Piperacillin Sod/Tazobactam (Sod 3.375 gm/ Dextrose) 50 mls @ 100 mls/hr IVPB Q8H-IV [facility]; Protocol Last Admin: 05/24/18 09:32 Dose: 100 mls/hr Vancomycin HCl (Vancomycin (Pre-Docked)) 1,000 mg in 250 mls @ 200 mls/hr IVPB Q24H [facility]; Protocol Last Admin: 05/24/18 12:48 Dose: 200 mls/hr Insulin Aspart (Novolog Vial Sliding Scale -) 1 vial SQ ACHS [facility]; Protocol Last Admin: 05/24/18 12:49 Dose: 6 units Insulin Detemir (Levemir Vial) 14 units SQ HS [facility] Last Admin: 05/23/18 21:13 Dose: 14 units Labetalol HCl 200 mg/ (Labetalol HCl 100 mg) 300 mg PO TID [facility] Last Admin: 05/24/18 06:01 Dose: 300 mg Levetiracetam (Keppra Injection -) 500 mg IVPB BID [facility] Last Admin: 05/24/18 09:31 Dose: 500 mg Lisinopril (Prinivil) 10 mg PO DAILY [facility] Last Admin: 05/24/18 09:31 Dose: 10 mg Ondansetron HCl (Zofran Injection) 4 mg IVPUSH Q6H PRN PRN Reason: NAUSEA AND/OR VOMITING Last Admin: 05/11/18 19:00 Dose: 4 mg Pantoprazole Sodium (Protonix Iv) 40 mg IVPUSH DAILY [facility] Last Admin: 05/24/18 09:31 Dose: 40 mg - Objective Vital Signs: Vital Signs Temperature 98.6 F 05/24/18 10:13 Pulse Rate 88 05/24/18 12:00 Respiratory Rate 25 H 05/24/18 12:10 Blood Pressure 91/65 05/24/18 12:00 O2 Sat by Pulse Oximetry (%) 95 05/24/18 05:57 Constitutional: Yes: Calm Eyes: Yes: Conjunctiva Clear Cardiovascular: Yes: S1, S2 Respiratory: Yes: Mechanically Ventilated Gastrointestinal: Yes: Soft Genitourinary: Yes: Smith Present Musculoskeletal: Yes: Muscle Weakness Edema: No Neurological: Yes: Lethargy Labs: CBC, BMP 05/24/18 05:30 05/24/18 05:30 INR, PTT INR 1.06 (0.83-1.09) 05/10/18 16:15 Problem List - Problems (1) Hypernatremia Code(s): E87.0 - HYPEROSMOLALITY AND HYPERNATREMIA (2) QI (acute kidney injury) Code(s): N17.9 - ACUTE KIDNEY FAILURE, UNSPECIFIED (3) Diabetes Code(s): E11.9 - TYPE 2 DIABETES MELLITUS WITHOUT COMPLICATIONS Assessment/Plan Current Medications Generic Name Dose Route Start Last Admin Trade Name Freq PRN Reason Stop Dose Admin Acetaminophen 650 mg 05/13/18 10:24 05/21/18 21:22 Tylenol - PO 650 mg Q6H PRN Administration FEVER Acetylcysteine 200 mg 05/24/18 12:00 Mucomyst 20 Oral / Inh Use Only* NEB RQID [facility] Albuterol Sulfate 1 amp 05/24/18 12:00 Ventolin 0.083% Nebulizer [facility] RQID [facility] Amlodipine Besylate 10 mg 05/13/18 10:00 05/24/18 09:31 Norvasc - PO 10 mg DAILY [facility] Administration Aspirin 81 mg 05/15/18 10:00 05/24/18 09:31 Ecotrin - PO 81 mg DAILY [facility] Administration Atorvastatin Calcium 80 mg 05/13/18 22:00 05/23/18 21:11 Lipitor - PO 80 mg HS [facility] Administration Docusate Sodium 100 mg 05/11/18 22:00 05/24/18 06:01 Colace - PO Not Given TID [facility] Heparin Sodium (Porcine) 5,000 unit 05/19/18 06:00 05/24/18 06:01 Heparin - SQ 5,000 unit TID [facility] Administration Propofol 1,000,000 mcg in 100 mls @ 2.507 mls/hr 05/14/18 23:45 05/24/18 11: 36 Diprivan - IVPB 25 mcg/kg/min TITR [facility] 12.533 mls/hr Administration Protocol 5 MCG/KG/MIN Piperacillin Sod/Tazobactam 50 mls @ 100 mls/hr 05/15/18 18:00 05/24/18 09:32 Sod 3.375 gm/ Dextrose IVPB 100 mls/hr Q8H-IV [facility] Administration Protocol Vancomycin HCl 1,000 mg in 250 mls @ 200 mls/hr 05/19/18 11:30 05/24/18 12:48 Vancomycin (Pre-Docked) IVPB 200 mls/hr Q24H [facility] Administration Protocol Insulin Aspart 1 vial 05/22/18 11:00 05/24/18 12:49 Novolog Vial Sliding Scale - SQ 6 units ACHS [facility] Administration Protocol Insulin Detemir 14 units 05/22/18 22:00 05/23/18 21:13 Levemir Vial SQ 14 units HS [facility] Administration Labetalol HCl 200 mg/ 300 mg 05/13/18 14:00 05/24/18 06:01 Labetalol HCl 100 mg PO 300 mg TID [facility] Administration Levetiracetam 500 mg 05/11/18 22:00 05/24/18 09:31 Keppra Injection - IVPB 500 mg BID [facility] Administration Lisinopril 10 mg 05/22/18 12:15 05/24/18 09:31 Prinivil PO 10 mg DAILY [facility] Administration Ondansetron HCl 4 mg 05/11/18 17:57 05/11/18 19:00 Zofran Injection IVPUSH 4 mg Q6H PRN Administration NAUSEA AND/OR VOMITING Pantoprazole Sodium 40 mg 05/12/18 10:00 05/24/18 09:31 Protonix Iv IVPUSH 40 mg DAILY [facility] Administration Impression 1. QI 2. hypernatremia 3. hemorrhagic CVA 4. DM 5. a-fib 6. Acute Respiratory Failure 7. s/p Left frontal craniotomy, excision of thalamic hermorrhagic mass 8. hyperkalemia Plan - sodium is worsening - resume free water once feeds are started - he was without feeds and free water yesterday when extubated and again today while intubated - monitor sodium - monitor lytes - will follow Dr Davies
--- NOTE | 2018-05-24 16:12 | PN ---
Physical Exam: SUBJECTIVE: Patient seen and examined at bedside. He is intubated and sedated. He was extubated for the past 2 days but did not do well on high flow nasal cannula. This morning his RR was in the 30's and he was using accessory abdominal muscles for respiration. He was re-intubated today and will likely need a tracheostomy moving forward. OBJECTIVE: Vital Signs Period Temp Pulse Resp BP Sys/Goel Pulse Ox Last 24 Hr 97.5 F-98.6 F 80-103 16-34 80-130/54-85 94-98 GENERAL: Patient is intubated and sedated. HEAD: Surgical Dressing, no erythema around joão. EYES: PERRL, sclera anicteric, conjunctiva clear. ENT: Copius secretions. Ears normal, nares patent, moist mucous membranes. NECK: Trachea midline, supple. LUNGS: Bilateral crackles at the bases + b/l rhonchi. HEART: Regular rate and irregular rhythm, S1, S2 without murmur, rub or gallop. ABDOMEN: Soft, nontender, nondistended, normoactive bowel sounds, no guarding, no rebound, no hepatosplenomegaly, no masses. EXTREMITIES: 2+ pulses, warm, well-perfused, no edema. NEUROLOGICAL: Cannot assess secondary to mental status. SKIN: Warm, dry, normal turgor, no rashes or lesions noted Laboratory Results - last 24 hr 05/22/18 05/22/18 05/22/18 11:23 16:44 19:52 WBC RBC Hgb Hct MCV MCH MCHC RDW Plt Count MPV Absolute Neuts (auto) Neutrophils % Lymphocytes % Monocytes % Eosinophils % Basophils % Nucleated RBC % Anticoagulation Therapy Puncture Site ABG pH ABG pCO2 at Pt Temp ABG pO2 at Pt Temp ABG HCO3 ABG O2 Sat (Measured) ABG O2 Content ABG Base Excess Oziel Test O2 Delivery Device Oxygen Flow Rate Vent Mode Vent Rate Mechanical Rate Pressure Support Vent Sodium Potassium Chloride Carbon Dioxide Anion Gap BUN Creatinine Creat Clearance w eGFR POC Glucometer 270.11308 200.06880 165.65388 Random Glucose Lactic Acid Calcium Phosphorus Magnesium Total Bilirubin AST ALT Alkaline Phosphatase Total Protein Albumin 05/22/18 05/23/18 05/23/18 22:09 05:46 13:41 WBC RBC Hgb Hct MCV MCH MCHC RDW Plt Count MPV Absolute Neuts (auto) Neutrophils % Lymphocytes % Monocytes % Eosinophils % Basophils % Nucleated RBC % Anticoagulation Therapy Puncture Site ABG pH ABG pCO2 at Pt Temp ABG pO2 at Pt Temp ABG HCO3 ABG O2 Sat (Measured) ABG O2 Content ABG Base Excess Oziel Test O2 Delivery Device Oxygen Flow Rate Vent Mode Vent Rate Mechanical Rate Pressure Support Vent Sodium Potassium Chloride Carbon Dioxide Anion Gap BUN Creatinine Creat Clearance w eGFR POC Glucometer 188.36132 263.32908 310.03125 Random Glucose Lactic Acid Calcium Phosphorus Magnesium Total Bilirubin AST ALT Alkaline Phosphatase Total Protein Albumin 05/23/18 05/24/18 05/24/18 17:48 05:30 05:30 WBC 11.3 H RBC 3.78 L Hgb 10.4 L Hct 31.8 L MCV 84.2 MCH 27.5 MCHC 32.7 RDW 13.9 Plt Count 113 L MPV 11.3 H Absolute Neuts (auto) 9.8 H Neutrophils % 86.3 H Lymphocytes % 9.2 Monocytes % 4.0 Eosinophils % 0.3 Basophils % 0.2 Nucleated RBC % 0 Anticoagulation Therapy Puncture Site ABG pH ABG pCO2 at Pt Temp ABG pO2 at Pt Temp ABG HCO3 ABG O2 Sat (Measured) ABG O2 Content ABG Base Excess Oziel Test O2 Delivery Device Oxygen Flow Rate Vent Mode Vent Rate Mechanical Rate Pressure Support Vent Sodium 148 H Potassium 4.4 Chloride 112 H Carbon Dioxide 27 Anion Gap 8 BUN 43 H Creatinine 0.9 Creat Clearance w eGFR > 60 POC Glucometer [phone] Random Glucose 138 H Lactic Acid Calcium 7.9 L Phosphorus 3.7 Magnesium 2.4 Total Bilirubin 0.6 AST 28 ALT 28 Alkaline Phosphatase 109 Total Protein 5.4 L Albumin 2.1 L 05/24/18 05/24/18 05:30 05:50 WBC RBC Hgb Hct MCV MCH MCHC RDW Plt Count MPV Absolute Neuts (auto) Neutrophils % Lymphocytes % Monocytes % Eosinophils % Basophils % Nucleated RBC % Anticoagulation Therapy No Result Required. Puncture Site Left radial ABG pH 7.44 ABG pCO2 at Pt Temp 39.8 ABG pO2 at Pt Temp 112.0 H D ABG HCO3 26.7 H ABG O2 Sat (Measured) 97.9 ABG O2 Content 14.1 L ABG Base Excess 2.9 H Oziel Test Positive O2 Delivery Device High flow Oxygen Flow Rate 70% Vent Mode No Result Required. Vent Rate No Result Required. Mechanical Rate No Result Required. Pressure Support Vent No Result Required. Sodium Potassium Chloride Carbon Dioxide Anion Gap BUN Creatinine Creat Clearance w eGFR POC Glucometer Random Glucose Lactic Acid 0.8 Calcium Phosphorus Magnesium Total Bilirubin AST ALT Alkaline Phosphatase Total Protein Albumin Active Medications Generic Name Dose Route Start Last Admin Trade Name Freq PRN Reason Stop Dose Admin Acetaminophen 650 mg 05/13/18 10:24 05/21/18 21:22 Tylenol - PO 650 mg Q6H PRN Administration FEVER Acetylcysteine 200 mg 05/24/18 12:00 Mucomyst 20 Oral / Inh Use Only* NEB RQID [facility] Albuterol Sulfate 1 amp 05/24/18 12:00 Ventolin 0.083% Nebulizer Soln - NEB RQID [facility] Amlodipine Besylate 10 mg 05/13/18 10:00 05/24/18 09:31 Norvasc - PO 10 mg DAILY [facility] Administration Aspirin 81 mg 05/15/18 10:00 05/24/18 09:31 Ecotrin - PO 81 mg DAILY [facility] Administration Atorvastatin Calcium 80 mg 05/13/18 22:00 05/23/18 21:11 Lipitor - PO 80 mg HS [facility] Administration Docusate Sodium 100 mg 05/11/18 22:00 05/24/18 15:07 Colace - PO 100 mg TID [facility] Administration Heparin Sodium (Porcine) 5,000 unit 05/19/18 06:00 05/24/18 15:07 Heparin - SQ 5,000 unit TID [facility] Administration Propofol 1,000,000 mcg in 100 mls @ 2.507 mls/hr 05/14/18 23:45 05/24/18 11: 36 Diprivan - IVPB 25 mcg/kg/min TITR [facility] 12.533 mls/hr Administration Protocol 5 MCG/KG/MIN Piperacillin Sod/Tazobactam 50 mls @ 100 mls/hr 05/15/18 18:00 05/24/18 09:32 Sod 3.375 gm/ Dextrose IVPB 100 mls/hr Q8H-IV [facility] Administration Protocol Vancomycin HCl 1,000 mg in 250 mls @ 200 mls/hr 05/19/18 11:30 05/24/18 12:48 Vancomycin (Pre-Docked) IVPB 200 mls/hr Q24H [facility] Administration Protocol Insulin Aspart 1 vial 05/22/18 11:00 05/24/18 12:49 Novolog Vial Sliding Scale - SQ 6 units ACHS [facility] Administration Protocol Insulin Detemir 14 units 05/22/18 22:00 05/23/18 21:13 Levemir Vial SQ 14 units HS [facility] Administration Labetalol HCl 200 mg/ 300 mg 05/13/18 14:00 05/24/18 15:08 Labetalol HCl 100 mg PO Not Given TID [facility] Levetiracetam 500 mg 05/11/18 22:00 05/24/18 09:31 Keppra Injection - IVPB 500 mg BID [facility] Administration Lisinopril 10 mg 05/22/18 12:15 05/24/18 09:31 Prinivil PO 10 mg DAILY [facility] Administration Ondansetron HCl 4 mg 05/11/18 17:57 05/11/18 19:00 Zofran Injection IVPUSH 4 mg Q6H PRN Administration NAUSEA AND/OR VOMITING Pantoprazole Sodium 40 mg 05/12/18 10:00 05/24/18 09:31 Protonix Iv IVPUSH 40 mg DAILY [facility] Administration ASSESSMENT/PLAN: Assessment: 67 yo M w a hx of AFIB, recent hemorrhagic CVA, T2DM is here s/p Left frontal craniotomy and blood clot removal after being operated on by Dr. Taveras. Complete white out of Left lung today - probably secondary to aspiration. Patient was not doing well on high flow NC, needed to be re-intubated today, and was noted to have copius secretions. QI improving. BUN today - 43, Cr 0.9. Stopping decadron today. Plan: Nephro: - QI - likely Pre-renal injury. Improving. - Kidney US showed no hydronephrosis or stones b/l - Urine lites support pre-renal injury. - Renal on board Cardio: - Strict BP control with systolic < 130 - Lebatalol for elevated BP or rate control PRN - Patient is on home meds ID: - ID consulted - PNA: Abx for HCAP vs aspiration. - Positive Strep pneumo in the urine. - Positive MRSA in sputum - Positive E fecalis in urine - Vanc and zosyn being given - Contact precautions Pulm: - intubated - ABG daily - Total white out of left lung Neuro: - Daily sedation vacations to assess mental status - Keppra 500 mg for seizure prohylaxis. - Head of the bead 30 degrees. GI: - Aspiration precautions. - Protonix 40 - Zofran PRN Endo: - Sliding scale - frequent glucose checks Prophylaxis: - Aspiration precautions. - Heparin 5000 TID F/E/N: - Tube Feeds with glucerna via NG tube - Elevated potassium from yesterday resolved with kayexalate. - No standing fluids today Code Status: - Full code - Continue to speak with family regarding goals of care Dispo: - Patient will continue to receive monitoring in the ICU. Visit type - Emergency Visit Emergency Visit: Yes ED Registration Date: 05/10/18 Care time: The patient presented to the Emergency Department on the above date and was hospitalized for further evaluation of their emergent condition. - New Patient This patient is new to me today: No - Critical Care Critical Care patient: Yes Total Critical Care Time (in minutes): 36 Critical Care Statement: The care of this patient involved high complexity decision making to prevent further life threatening deterioration of the patient 's condition and/or to evaluate & treat vital organ system(s) failure or risk of failure.
[2018-05-24] MEDS: ATORVASTATIN CA 80 MG TABLET (FP) PO SCH (22:20)
[2018-05-24] MEDS: INSULIN (LEVEMIR) 100 UNITS/ML UNITS SQ SCH (22:20)
--- NOTE | 2018-05-24 23:37 | PN ---
Progress Note, Physician Chief Complaint: intubated and sedated requiring less insulin coverage nutrition calories iv nutrition History of Present Illness: 67 year old male with DM, neuropathy, recent brain bleed, history of AFIB, s/p crainotomy to remove the clot. Remains intubated on a ventilator. unresponsive,on insulin sliding scale coverage as requiring dose needs - Current Medication List Current Medications: Active Medications Acetaminophen (Tylenol -) 650 mg PO Q6H PRN PRN Reason: FEVER Last Admin: 05/21/18 21:22 Dose: 650 mg Acetylcysteine (Mucomyst 20 Oral / Inh Use Only*) 200 mg NEB RQID [facility] Last Admin: 05/24/18 20:39 Dose: 200 mg Albuterol Sulfate (Ventolin 0.083% Nebulizer Soln -) 1 amp NEB RQID [facility] Last Admin: 05/24/18 20:39 Dose: 1 amp Amlodipine Besylate (Norvasc -) 10 mg PO DAILY [facility] Last Admin: 05/24/18 09:31 Dose: 10 mg Aspirin (Ecotrin -) 81 mg PO DAILY [facility] Last Admin: 05/24/18 09:31 Dose: 81 mg Atorvastatin Calcium (Lipitor -) 80 mg PO HS [facility] Last Admin: 05/24/18 22:20 Dose: 80 mg Docusate Sodium (Colace -) 100 mg PO TID [facility] Last Admin: 05/24/18 22:20 Dose: Not Given Heparin Sodium (Porcine) (Heparin -) 5,000 unit SQ TID [facility] Last Admin: 05/24/18 22:20 Dose: 5,000 unit Propofol (Diprivan -) 1,000,000 mcg in 100 mls @ 2.507 mls/hr IVPB TITR [facility]; Protocol Last Admin: 05/24/18 11:36 Dose: 25 mcg/kg/min, 12.533 mls/hr Piperacillin Sod/Tazobactam (Sod 3.375 gm/ Dextrose) 50 mls @ 100 mls/hr IVPB Q8H-IV [facility]; Protocol Last Admin: 05/24/18 17:59 Dose: 100 mls/hr Vancomycin HCl (Vancomycin (Pre-Docked)) 1,000 mg in 250 mls @ 200 mls/hr IVPB Q24H [facility]; Protocol Last Admin: 05/24/18 12:48 Dose: 200 mls/hr Insulin Aspart (Novolog Vial Sliding Scale -) 1 vial SQ ACHS [facility]; Protocol Last Admin: 05/24/18 22:20 Dose: 4 units Insulin Detemir (Levemir Vial) 14 units SQ HS [facility] Last Admin: 05/24/18 22:20 Dose: 14 units Labetalol HCl 200 mg/ (Labetalol HCl 100 mg) 300 mg PO TID [facility] Last Admin: 05/24/18 22:20 Dose: Not Given Levetiracetam (Keppra Injection -) 500 mg IVPB BID [facility] Last Admin: 05/24/18 22:20 Dose: 500 mg Lisinopril (Prinivil) 10 mg PO DAILY [facility] Last Admin: 05/24/18 09:31 Dose: 10 mg Ondansetron HCl (Zofran Injection) 4 mg IVPUSH Q6H PRN PRN Reason: NAUSEA AND/OR VOMITING Last Admin: 05/11/18 19:00 Dose: 4 mg Pantoprazole Sodium (Protonix Iv) 40 mg IVPUSH DAILY [facility] Last Admin: 05/24/18 09:31 Dose: 40 mg - Objective Vital Signs: Vital Signs Temperature 98.9 F 05/24/18 22:00 Pulse Rate 98 H 05/24/18 22:00 Respiratory Rate 17 05/24/18 22:00 Blood Pressure 92/60 05/24/18 22:00 O2 Sat by Pulse Oximetry (%) 100 05/24/18 21:00 Eyes: Yes: Tearing HENT: Yes: Normocephalic Neck: Yes: Trachea Midline Cardiovascular: Yes: Tachycardia Respiratory: Yes: Mechanically Ventilated Gastrointestinal: Yes: Normal Bowel Sounds ...Rectal Exam: Yes: Deferred Breast(s): Yes: WNL Edema: No Neurological: Yes: Unresponsive Labs: CBC, BMP 05/24/18 05:30 05/24/18 05:30 INR, PTT INR 1.06 (0.83-1.09) 05/10/18 16:15 Problem List - Problems (1) QI (acute kidney injury) Code(s): N17.9 - ACUTE KIDNEY FAILURE, UNSPECIFIED (2) Diabetes Code(s): E11.9 - TYPE 2 DIABETES MELLITUS WITHOUT COMPLICATIONS (3) Fall Code(s): W19.XXXA - UNSPECIFIED FALL, INITIAL ENCOUNTER Qualifiers: Encounter type: initial encounter Qualified Code(s): W19.XXXA - Unspecified fall, initial encounter (4) HTN (hypertension) Code(s): I10 - ESSENTIAL (PRIMARY) HYPERTENSION (5) Hypernatremia Code(s): E87.0 - HYPEROSMOLALITY AND HYPERNATREMIA (6) Intracranial bleed Code(s): I62.9 - NONTRAUMATIC INTRACRANIAL HEMORRHAGE, UNSPECIFIED (7) Respiratory failure Code(s): J96.90 - RESPIRATORY FAILURE, UNSP, UNSP W HYPOXIA OR HYPERCAPNIA Assessment/Plan Current Active Problems QI (acute kidney injury) (Acute) Diabetes (Acute) Fall (Acute) HTN (hypertension) (Acute) Hypernatremia (Acute) Intracranial bleed (Acute) Respiratory failure (Acute) S/P craniotomy (Acute) Sepsis (Acute) Abnormal Lab Results 05/24/18 05/24/18 05/24/18 05:30 05:30 05:50 WBC 11.3 H RBC 3.78 L Hgb 10.4 L Hct 31.8 L Plt Count 113 L MPV 11.3 H Absolute Neuts (auto) 9.8 H Neutrophils % 86.3 H ABG pO2 at Pt Temp 112.0 H D ABG HCO3 26.7 H ABG O2 Content 14.1 L ABG Base Excess 2.9 H Sodium 148 H Chloride 112 H BUN 43 H Random Glucose 138 H Calcium 7.9 L Total Protein 5.4 L Albumin 2.1 L Laboratory Results - last 24 hr 05/23/18 05/24/18 05/24/18 21:11 01:14 05:30 WBC 11.3 H RBC 3.78 L Hgb 10.4 L Hct 31.8 L MCV 84.2 MCH 27.5 MCHC 32.7 RDW 13.9 Plt Count 113 L MPV 11.3 H Absolute Neuts (auto) 9.8 H Neutrophils % 86.3 H Lymphocytes % 9.2 Monocytes % 4.0 Eosinophils % 0.3 Basophils % 0.2 Nucleated RBC % 0 Anticoagulation Therapy Puncture Site ABG pH ABG pCO2 at Pt Temp ABG pO2 at Pt Temp ABG HCO3 ABG O2 Sat (Measured) ABG O2 Content ABG Base Excess Oziel Test O2 Delivery Device Oxygen Flow Rate Vent Mode Vent Rate Mechanical Rate Pressure Support Vent Sodium Potassium Chloride Carbon Dioxide Anion Gap BUN Creatinine Creat Clearance w eGFR POC Glucometer 121.55619 143.82693 Random Glucose Lactic Acid Calcium Phosphorus Magnesium Total Bilirubin AST ALT Alkaline Phosphatase Total Protein Albumin 05/24/18 05/24/18 05/24/18 05:30 05:30 05:50 WBC RBC Hgb Hct MCV MCH MCHC RDW Plt Count MPV Absolute Neuts (auto) Neutrophils % Lymphocytes % Monocytes % Eosinophils % Basophils % Nucleated RBC % Anticoagulation Therapy No Result Required. Puncture Site Left radial ABG pH 7.44 ABG pCO2 at Pt Temp 39.8 ABG pO2 at Pt Temp 112.0 H D ABG HCO3 26.7 H ABG O2 Sat (Measured) 97.9 ABG O2 Content 14.1 L ABG Base Excess 2.9 H Oziel Test Positive O2 Delivery Device High flow Oxygen Flow Rate 70% Vent Mode No Result Required. Vent Rate No Result Required. Mechanical Rate No Result Required. Pressure Support Vent No Result Required. Sodium 148 H Potassium 4.4 Chloride 112 H Carbon Dioxide 27 Anion Gap 8 BUN 43 H Creatinine 0.9 Creat Clearance w eGFR > 60 POC Glucometer Random Glucose 138 H Lactic Acid 0.8 Calcium 7.9 L Phosphorus 3.7 Magnesium 2.4 Total Bilirubin 0.6 AST 28 ALT 28 Alkaline Phosphatase 109 Total Protein 5.4 L Albumin 2.1 L 05/24/18 06:02 WBC RBC Hgb Hct MCV MCH MCHC RDW Plt Count MPV Absolute Neuts (auto) Neutrophils % Lymphocytes % Monocytes % Eosinophils % Basophils % Nucleated RBC % Anticoagulation Therapy Puncture Site ABG pH ABG pCO2 at Pt Temp ABG pO2 at Pt Temp ABG HCO3 ABG O2 Sat (Measured) ABG O2 Content ABG Base Excess Oziel Test O2 Delivery Device Oxygen Flow Rate Vent Mode Vent Rate Mechanical Rate Pressure Support Vent Sodium Potassium Chloride Carbon Dioxide Anion Gap BUN Creatinine Creat Clearance w eGFR POC Glucometer 154.31650 Random Glucose Lactic Acid Calcium Phosphorus Magnesium Total Bilirubin AST ALT Alkaline Phosphatase Total Protein Albumin plan: continue with levemir dose 14 units hs novolog qid doses tube feeding glucerna @56 cc/hr
[2018-05-25] MEDS ORDERED: DEXTROSE 5%-WATER - 50 ML IVPB ONE ×3 (01:07→16:40)
[2018-05-25] MEDS ORDERED: PIPERACILLIN/TAZOBACTAM 3.375 GM VIAL IVPB ONE ×3 (01:07→16:40)
[2018-05-25] MEDS: PIPERACILLIN/TAZOB 3.375 GM 3.375 GM in DEXTROSE 5%-WATER - 50 ML IVPB SCH ×3 (02:40→16:59)
[2018-05-25 06:19] LABS: BASO % 0.3 % (0-2.0); EOS % 0.6 % (0-4.5); HEMATOCRIT 29.4 % (35.4-49); HEMOGLOBIN 9.7 GM/dL (11.7-16.9); LYMPH % 10.1 % (8-40); MCH 27.5 pg (25.7-33.7); MCHC 32.9 g/dl (32.0-35.9); MEAN CELL VOLUME 83.7 fl (80-96); MEAN PLT VOLUME 11.4 fl (7.5-11.1); MONO % 3.5 % (3.8-10.2); NEUT % 85.5 % (42.8-82.8); PLATELET COUNT 107 K/MM3 (134-434); RBC 3.51 M/mm3 (4.00-5.60); RDW 13.6 % (11.9-15.9); WHITE BLOOD COUNT 9.5 K/mm3 (4.0-10.0)
[2018-05-25 06:35] LABS: ARTERIAL BLD GAS O2 SATURATION 99.3 % (90-98.9); ARTERIAL BLOOD GAS BASE EXCESS 2.2 meq/l (-2-2); ARTERIAL BLOOD GAS PCO2 42.4 mmHg (35-45); ARTERIAL BLOOD GAS pH 7.41 (7.35-7.45)
[2018-05-25] MEDS: DOCUSATE SODIUM 100 MG CAPSULE (FP) PO SCH ×3 (06:35→22:00)
[2018-05-25] MEDS: LABETALOL HCL 200 MG, LABETALOL HCL 100 MG PO SCH ×3 (06:36→21:15)
[2018-05-25] MEDS: HEPARIN NA (PORCINE) 5,000 UNITS/ML 1ML VIAL SQ SCH ×3 (06:36→21:15)
[2018-05-25] MEDS: INSULIN SLIDING SCALE (NOVOLOG) 1 VIAL SQ SCH ×3 (06:36→16:59)
[2018-05-25 06:43] LABS: ALLENS TEST POSITIVE
[2018-05-25 06:54] LABS: ALBUMIN 1.9 g/dl (3.4-5.0); ALK PHOS 107 U/L (45-117); ANION GAP 6 MMOL/L (8-16); BILIRUBIN,TOTAL 0.4 mg/dL (0.2-1); BLOOD UREA NITROGEN 57 mg/dL (7-18); CALCIUM 7.8 mg/dL (8.5-10.1); CHLORIDE 111 mmol/L (98-107); CO2 29 mmol/L (21-32); CREATININE 1.3 mg/dL (0.55-1.3); GLUCOSE,RANDOM 197 mg/dL (74-106); PHOSPHOROUS 4.2 mg/dL (2.5-4.9); POTASSIUM 4.5 mmol/L (3.5-5.1); SGOT/AST 25 U/L (15-37); SGPT/ALT 25 U/L (13-61); SODIUM 145 mmol/L (136-145); TOT PROT 5.1 g/dl (6.4-8.2)
[2018-05-25] MEDS: levETIRAcetam 500 MG/5 ML INJECTION VIAL IVPB SCH ×2 (09:00→21:15)
[2018-05-25] MEDS: ASPIRIN COATED 81 MG TABLET.EC PO SCH (09:00)
[2018-05-25] MEDS: PANTOPRAZOLE SODIUM 40 MG VIAL IVPUSH SCH (09:00)
[2018-05-25] MEDS: amLODIPine BESYLATE 10 MG TABLET (FP) PO SCH (09:01)
[2018-05-25] MEDS: ACETYLCYSTEINE 20% 200MG/ML 4 ML VIAL *FOR ORAL / INH USE ONLY NEB SCH ×4 (09:24→20:47)
[2018-05-25] MEDS: ALBUTEROL SO4 0.083% IH SOL 2.5 MG/3 ML VIAL.NEB. NEB SCH ×4 (09:25→20:48)
[2018-05-25] MEDS: LISINOPRIL 10 MG TABLET (FP) PO SCH (09:42)
--- NOTE | 2018-05-25 10:32 | PN ---
Progress Note, Physician Chief Complaint: patient intubated and sedated propofol - Current Medication List Current Medications: Active Medications Acetaminophen (Tylenol -) 650 mg PO Q6H PRN PRN Reason: FEVER Last Admin: 05/21/18 21:22 Dose: 650 mg Acetylcysteine (Mucomyst 20 Oral / Inh Use Only*) 200 mg NEB RQID [facility] Last Admin: 05/25/18 09:24 Dose: 200 mg Albuterol Sulfate (Ventolin 0.083% Nebulizer Soln -) 1 amp NEB RQID [facility] Last Admin: 05/25/18 09:25 Dose: 1 amp Amlodipine Besylate (Norvasc -) 10 mg PO DAILY [facility] Last Admin: 05/25/18 09:01 Dose: 10 mg Aspirin (Ecotrin -) 81 mg PO DAILY [facility] Last Admin: 05/25/18 09:00 Dose: 81 mg Atorvastatin Calcium (Lipitor -) 80 mg PO HS [facility] Last Admin: 05/24/18 22:20 Dose: 80 mg Docusate Sodium (Colace -) 100 mg PO TID [facility] Last Admin: 05/25/18 06:35 Dose: Not Given Heparin Sodium (Porcine) (Heparin -) 5,000 unit SQ TID [facility] Last Admin: 05/25/18 06:36 Dose: 5,000 unit Propofol (Diprivan -) 1,000,000 mcg in 100 mls @ 2.507 mls/hr IVPB TITR [facility]; Protocol Last Titration: 05/25/18 00:20 Dose: 20 mcg/kg/min, 10.026 mls/hr Piperacillin Sod/Tazobactam (Sod 3.375 gm/ Dextrose) 50 mls @ 100 mls/hr IVPB Q8H-IV [facility]; Protocol Last Admin: 05/25/18 08:59 Dose: 100 mls/hr Vancomycin HCl (Vancomycin (Pre-Docked)) 1,000 mg in 250 mls @ 200 mls/hr IVPB Q24H [facility]; Protocol Last Admin: 05/24/18 12:48 Dose: 200 mls/hr Insulin Aspart (Novolog Vial Sliding Scale -) 1 vial SQ ACHS [facility]; Protocol Last Admin: 05/25/18 06:36 Dose: 6 units Insulin Detemir (Levemir Vial) 14 units SQ HS [facility] Last Admin: 05/24/18 22:20 Dose: 14 units Labetalol HCl 200 mg/ (Labetalol HCl 100 mg) 300 mg PO TID [facility] Last Admin: 05/25/18 06:36 Dose: Not Given Levetiracetam (Keppra Injection -) 500 mg IVPB BID [facility] Last Admin: 05/25/18 09:00 Dose: 500 mg Lisinopril (Prinivil) 10 mg PO DAILY [facility] Last Admin: 05/25/18 09:42 Dose: 10 mg Ondansetron HCl (Zofran Injection) 4 mg IVPUSH Q6H PRN PRN Reason: NAUSEA AND/OR VOMITING Last Admin: 05/11/18 19:00 Dose: 4 mg Pantoprazole Sodium (Protonix Iv) 40 mg IVPUSH DAILY [facility] Last Admin: 05/25/18 09:00 Dose: 40 mg - Objective Vital Signs: Vital Signs Temperature 98.8 F 05/25/18 06:00 Pulse Rate 99 H 05/25/18 08:00 Respiratory Rate 19 05/25/18 09:23 Blood Pressure 116/81 05/25/18 08:00 O2 Sat by Pulse Oximetry (%) 100 05/24/18 21:00 Constitutional: Yes: Calm Neck: Yes: Other (intubated) Cardiovascular: Yes: Regular Rate and Rhythm, S1, S2 Respiratory: Yes: Mechanically Ventilated Gastrointestinal: Yes: Normal Bowel Sounds, Soft Labs: CBC, BMP 05/25/18 05:30 05/25/18 05:30 INR, PTT INR 1.06 (0.83-1.09) 05/10/18 16:15 Problem List - Problems (1) S/P craniotomy Assessment/Plan: on keppra for seizure s/o removal of thalamic mass Code(s): Z98.890 - OTHER SPECIFIED POSTPROCEDURAL STATES (2) Hypernatremia Assessment/Plan: sodium is better today Code(s): E87.0 - HYPEROSMOLALITY AND HYPERNATREMIA (3) Respiratory failure Assessment/Plan: intubated karmen need tracheostomy Code(s): J96.90 - RESPIRATORY FAILURE, UNSP, UNSP W HYPOXIA OR HYPERCAPNIA (4) Diabetes Assessment/Plan: seen by endo levemir and sliding scale Code(s): E11.9 - TYPE 2 DIABETES MELLITUS WITHOUT COMPLICATIONS Qualifiers: Diabetes mellitus type: type 2 (5) HTN (hypertension) Assessment/Plan: labetolol,norvasc,lisinopril Code(s): I10 - ESSENTIAL (PRIMARY) HYPERTENSION (6) Pneumonia Assessment/Plan: Microbiology 05/15/18 19:15 Sputum - Endotrachea Suction/Ventilator Gram Stain - Final 05/15/18 19:15 Sputum - Endotrachea Suction/Ventilator Sputum Culture - Final Mr S Aureus Klebsiella Pneumoniae Diphtheroid/Corynebacterium MRSA contact precautions,isolation kan Code(s): J18.9 - PNEUMONIA, UNSPECIFIED ORGANISM
[2018-05-25] MEDS: VANCOMYCIN 1 GRAM (PRE-DOCKED) 1,000 MG/250 ML BAG IVPB SCH (11:44)
[2018-05-25] MEDS ORDERED: LABETALOL HCL 100 MG TABLET (FP) ONE ×2 (12:56→21:08)
[2018-05-25] MEDS ORDERED: LABETALOL HCL 200 MG TABLET (FP) ONE ×2 (12:56→21:08)
--- NOTE | 2018-05-25 13:10 | PN ---
Teaching Attending Note Name of Resident: Can Ledbetter ATTENDING PHYSICIAN STATEMENT I saw and evaluated the patient. I reviewed the resident's note and discussed the case with the resident. I agree with the resident's findings and plan as documented. SUBJECTIVE: Pt seen and examined in the ICU. Remains intubated, sedated. CXR improved today. Repeat CT head unchanged. OBJECTIVE: Vital Signs Period Temp Pulse Resp BP Sys/Goel Pulse Ox Last 24 Hr 98.8 F-99.2 F 80-102 16-25 92-117/53-81 95-100 Intake & Output 05/22/18 05/23/18 05/24/18 05/25/18 23:59 23:59 23:59 23:59 Intake Total 3534 2084 296 200 Output Total 2200 1800 1500 400 Balance 1334 284 -1204 -200 Weight 76.929 kg 77.7 kg 75.5 kg 76.793 kg Gen: intubated, sedated Heart: RRR Lung: scattered rhonchi Abd: soft, nontender Ext: no edema CBC, BMP 05/25/18 05:30 05/25/18 05:30 Active Medications Acetaminophen (Tylenol -) 650 mg PO Q6H PRN PRN Reason: FEVER Last Admin: 05/21/18 21:22 Dose: 650 mg Acetylcysteine (Mucomyst 20 Oral / Inh Use Only*) 200 mg NEB RQID [facility] Last Admin: 05/25/18 09:24 Dose: 200 mg Albuterol Sulfate (Ventolin 0.083% Nebulizer Soln -) 1 amp NEB RQID [facility] Last Admin: 05/25/18 09:25 Dose: 1 amp Amlodipine Besylate (Norvasc -) 10 mg PO DAILY [facility] Last Admin: 05/25/18 09:01 Dose: 10 mg Aspirin (Ecotrin -) 81 mg PO DAILY [facility] Last Admin: 05/25/18 09:00 Dose: 81 mg Atorvastatin Calcium (Lipitor -) 80 mg PO HS [facility] Last Admin: 05/24/18 22:20 Dose: 80 mg Docusate Sodium (Colace -) 100 mg PO TID [facility] Last Admin: 05/25/18 06:35 Dose: Not Given Heparin Sodium (Porcine) (Heparin -) 5,000 unit SQ TID [facility] Last Admin: 05/25/18 06:36 Dose: 5,000 unit Propofol (Diprivan -) 1,000,000 mcg in 100 mls @ 2.507 mls/hr IVPB TITR [facility]; Protocol Last Titration: 05/25/18 00:20 Dose: 20 mcg/kg/min, 10.026 mls/hr Piperacillin Sod/Tazobactam (Sod 3.375 gm/ Dextrose) 50 mls @ 100 mls/hr IVPB Q8H-IV [facility]; Protocol Last Admin: 05/25/18 08:59 Dose: 100 mls/hr Vancomycin HCl (Vancomycin (Pre-Docked)) 1,000 mg in 250 mls @ 200 mls/hr IVPB Q24H [facility]; Protocol Last Admin: 05/25/18 11:44 Dose: 200 mls/hr Insulin Aspart (Novolog Vial Sliding Scale -) 1 vial SQ ACHS [facility]; Protocol Last Admin: 05/25/18 11:42 Dose: Not Given Insulin Detemir (Levemir Vial) 14 units SQ HS [facility] Last Admin: 05/24/18 22:20 Dose: 14 units Labetalol HCl 200 mg/ (Labetalol HCl 100 mg) 300 mg PO TID [facility] Last Admin: 05/25/18 06:36 Dose: Not Given Levetiracetam (Keppra Injection -) 500 mg IVPB BID [facility] Last Admin: 05/25/18 09:00 Dose: 500 mg Lisinopril (Prinivil) 10 mg PO DAILY [facility] Last Admin: 05/25/18 09:42 Dose: 10 mg Ondansetron HCl (Zofran Injection) 4 mg IVPUSH Q6H PRN PRN Reason: NAUSEA AND/OR VOMITING Last Admin: 05/11/18 19:00 Dose: 4 mg Pantoprazole Sodium (Protonix Iv) 40 mg IVPUSH DAILY [facility] Last Admin: 05/25/18 09:00 Dose: 40 mg ASSESSMENT AND PLAN: 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
--- NOTE | 2018-05-25 14:30 | PN ---
Progress Note, Physician History of Present Illness: Pt seen and examined at bedside. He remains in the ICU. He remains intubated. - Current Medication List Current Medications: Active Medications Acetaminophen (Tylenol -) 650 mg PO Q6H PRN PRN Reason: FEVER Last Admin: 05/21/18 21:22 Dose: 650 mg Acetylcysteine (Mucomyst 20 Oral / Inh Use Only*) 200 mg NEB RQID [facility] Last Admin: 05/25/18 09:24 Dose: 200 mg Albuterol Sulfate (Ventolin 0.083% Nebulizer Soln -) 1 amp NEB RQID [facility] Last Admin: 05/25/18 09:25 Dose: 1 amp Amlodipine Besylate (Norvasc -) 10 mg PO DAILY [facility] Last Admin: 05/25/18 09:01 Dose: 10 mg Aspirin (Ecotrin -) 81 mg PO DAILY [facility] Last Admin: 05/25/18 09:00 Dose: 81 mg Atorvastatin Calcium (Lipitor -) 80 mg PO HS [facility] Last Admin: 05/24/18 22:20 Dose: 80 mg Docusate Sodium (Colace -) 100 mg PO TID [facility] Last Admin: 05/25/18 13:57 Dose: Not Given Heparin Sodium (Porcine) (Heparin -) 5,000 unit SQ TID [facility] Last Admin: 05/25/18 13:56 Dose: 5,000 unit Propofol (Diprivan -) 1,000,000 mcg in 100 mls @ 2.507 mls/hr IVPB TITR [facility]; Protocol Last Titration: 05/25/18 00:20 Dose: 20 mcg/kg/min, 10.026 mls/hr Piperacillin Sod/Tazobactam (Sod 3.375 gm/ Dextrose) 50 mls @ 100 mls/hr IVPB Q8H-IV [facility]; Protocol Last Admin: 05/25/18 08:59 Dose: 100 mls/hr Vancomycin HCl (Vancomycin (Pre-Docked)) 1,000 mg in 250 mls @ 200 mls/hr IVPB Q24H [facility]; Protocol Last Admin: 05/25/18 11:44 Dose: 200 mls/hr Insulin Aspart (Novolog Vial Sliding Scale -) 1 vial SQ ACHS [facility]; Protocol Last Admin: 05/25/18 11:42 Dose: Not Given Insulin Detemir (Levemir Vial) 14 units SQ HS [facility] Last Admin: 05/24/18 22:20 Dose: 14 units Labetalol HCl 200 mg/ (Labetalol HCl 100 mg) 300 mg PO TID [facility] Last Admin: 05/25/18 13:56 Dose: 300 mg Levetiracetam (Keppra Injection -) 500 mg IVPB BID [facility] Last Admin: 05/25/18 09:00 Dose: 500 mg Lisinopril (Prinivil) 10 mg PO DAILY [facility] Last Admin: 05/25/18 09:42 Dose: 10 mg Ondansetron HCl (Zofran Injection) 4 mg IVPUSH Q6H PRN PRN Reason: NAUSEA AND/OR VOMITING Last Admin: 05/11/18 19:00 Dose: 4 mg Pantoprazole Sodium (Protonix Iv) 40 mg IVPUSH DAILY [facility] Last Admin: 05/25/18 09:00 Dose: 40 mg - Objective Vital Signs: Vital Signs Temperature 98.8 F 05/25/18 06:00 Pulse Rate 99 H 05/25/18 08:00 Respiratory Rate 19 05/25/18 09:23 Blood Pressure 116/81 05/25/18 08:00 O2 Sat by Pulse Oximetry (%) 100 05/24/18 21:00 Constitutional: Yes: Calm Eyes: Yes: Conjunctiva Clear HENT: Yes: Atraumatic Cardiovascular: Yes: S1, S2 Respiratory: Yes: Mechanically Ventilated Gastrointestinal: Yes: Soft Genitourinary: Yes: Smith Present Musculoskeletal: Yes: Muscle Weakness Edema: No Wound/Incision: Yes: Open to air Neurological: Yes: Lethargy Labs: CBC, BMP 05/25/18 05:30 05/25/18 05:30 INR, PTT INR 1.06 (0.83-1.09) 05/10/18 16:15 - ....Imaging Chest X-ray: Report Reviewed Cat Scan: Report Reviewed Problem List - Problems (1) Hypernatremia Code(s): E87.0 - HYPEROSMOLALITY AND HYPERNATREMIA (2) QI (acute kidney injury) Code(s): N17.9 - ACUTE KIDNEY FAILURE, UNSPECIFIED (3) Diabetes Code(s): E11.9 - TYPE 2 DIABETES MELLITUS WITHOUT COMPLICATIONS Qualifiers: Diabetes mellitus type: type 2 Assessment/Plan Current Medications Generic Name Dose Route Start Last Admin Trade Name Freq PRN Reason Stop Dose Admin Acetaminophen 650 mg 05/13/18 10:24 05/21/18 21:22 Tylenol - PO 650 mg Q6H PRN Administration FEVER Acetylcysteine 200 mg 05/24/18 12:00 05/25/18 09:24 Mucomyst 20 Oral / Inh Use Only* NEB 200 mg RQID [facility] Administration Albuterol Sulfate 1 amp 05/24/18 12:00 05/25/18 09:25 Ventolin 0.083% Nebulizer Soln - NEB 1 amp RQID [facility] Administration Amlodipine Besylate 10 mg 05/13/18 10:00 05/25/18 09:01 Norvasc - PO 10 mg DAILY [facility] Administration Aspirin 81 mg 05/15/18 10:00 05/25/18 09:00 Ecotrin - PO 81 mg DAILY [facility] Administration Atorvastatin Calcium 80 mg 05/13/18 22:00 05/24/18 22:20 Lipitor - PO 80 mg HS [facility] Administration Docusate Sodium 100 mg 05/11/18 22:00 05/25/18 13:57 Colace - PO Not Given TID [facility] Heparin Sodium (Porcine) 5,000 unit 05/19/18 06:00 05/25/18 13:56 Heparin - SQ 5,000 unit TID [facility] Administration Propofol 1,000,000 mcg in 100 mls @ 2.507 mls/hr 05/14/18 23:45 05/25/18 00: 20 Diprivan - IVPB 20 mcg/kg/min TITR [facility] 10.026 mls/hr Titration Protocol 5 MCG/KG/MIN Piperacillin Sod/Tazobactam 50 mls @ 100 mls/hr 05/15/18 18:00 05/25/18 08:59 Sod 3.375 gm/ Dextrose IVPB 100 mls/hr Q8H-IV [facility] Administration Protocol Vancomycin HCl 1,000 mg in 250 mls @ 200 mls/hr 05/19/18 11:30 05/25/18 11:44 Vancomycin (Pre-Docked) IVPB 200 mls/hr Q24H [facility] Administration Protocol Insulin Aspart 1 vial 05/22/18 11:00 05/25/18 11:42 Novolog Vial Sliding Scale - SQ Not Given ACHS [facility] Protocol Insulin Detemir 14 units 05/22/18 22:00 11/14/18 22:20 Levemir Vial SQ 14 units HS [facility] Administration Labetalol HCl 200 mg/ 300 mg 05/13/18 14:00 05/25/18 13:56 Labetalol HCl 100 mg PO 300 mg TID [facility] Administration Levetiracetam 500 mg 05/11/18 22:00 05/25/18 09:00 Keppra Injection - IVPB 500 mg BID [facility] Administration Lisinopril 10 mg 05/22/18 12:15 05/25/18 09:42 Prinivil PO 10 mg DAILY [facility] Administration Ondansetron HCl 4 mg 05/11/18 17:57 05/11/18 19:00 Zofran Injection IVPUSH 4 mg Q6H PRN Administration NAUSEA AND/OR VOMITING Pantoprazole Sodium 40 mg 05/12/18 10:00 05/25/18 09:00 Protonix Iv IVPUSH 40 mg DAILY [facility] Administration Impression 1. QI 2. hypernatremia 3. hemorrhagic CVA 4. DM 5. a-fib 6. Acute Respiratory Failure 7. s/p Left frontal craniotomy, excision of thalamic hermorrhagic mass 8. hyperkalemia Plan - sodum is stabilizing - cont free water and re-asses tomorrow - monitor bp - neurosurgery follow up - monitor sodium - monitor lytes - will follow Dr Davies
--- NOTE | 2018-05-25 14:52 | PN ---
Physical Exam: SUBJECTIVE: Patient seen and examined at bedside. He remains intubated and sedated. We stopped the decadron yesterday and his glucose has been stable and WNL on sliding scale. No acute events overnight. CXR has improved since yesterday now that he is on the vent. - Called patient's sister twice today to try and discuss goals of care but no answer. Sister - Yuni Feldman: [phone] OBJECTIVE: Vital Signs Period Temp Pulse Resp BP Sys/Goel Pulse Ox Last 24 Hr 98.8 F-99.2 F 80-102 16-21 92-117/53-81 100 GENERAL: Patient is intubated and sedated. HEAD: Surgical Dressing, no erythema around joão. EYES: Patient is able to open his right eye but the left eye remains shut. PERRL , sclera anicteric, conjunctiva clear. ENT: Copius secretions. Ears normal, nares patent, moist mucous membranes. NECK: Trachea midline, supple. LUNGS: Bilateral crackles at the bases + b/l rhonchi. HEART: Regular rate and irregular rhythm, S1, S2 without murmur, rub or gallop. ABDOMEN: Soft, nontender, nondistended, normoactive bowel sounds, no guarding, no rebound, no hepatosplenomegaly, no masses. EXTREMITIES: 2+ pulses, warm, well-perfused, no edema. NEUROLOGICAL: Cannot assess secondary to mental status. SKIN: Warm, dry, normal turgor, no rashes or lesions noted Laboratory Results - last 24 hr 05/23/18 05/24/18 05/24/18 21:11 01:14 06:02 WBC RBC Hgb Hct MCV MCH MCHC RDW Plt Count MPV Absolute Neuts (auto) Neutrophils % Lymphocytes % Monocytes % Eosinophils % Basophils % Nucleated RBC % Anticoagulation Therapy Puncture Site ABG pH ABG pCO2 at Pt Temp ABG pO2 at Pt Temp ABG HCO3 ABG O2 Sat (Measured) ABG O2 Content ABG Base Excess Oziel Test O2 Delivery Device Oxygen Flow Rate Vent Mode Vent Rate Mechanical Rate PEEP Pressure Support Vent Sodium Potassium Chloride Carbon Dioxide Anion Gap BUN Creatinine Creat Clearance w eGFR POC Glucometer 121.23189 143.96272 154.87306 Random Glucose Lactic Acid Calcium Phosphorus Magnesium Total Bilirubin AST ALT Alkaline Phosphatase Total Protein Albumin 05/25/18 05/25/18 05/25/18 05:30 05:30 05:30 WBC 9.5 RBC 3.51 L Hgb 9.7 L Hct 29.4 L MCV 83.7 MCH 27.5 MCHC 32.9 RDW 13.6 Plt Count 107 L MPV 11.4 H Absolute Neuts (auto) 8.1 H Neutrophils % 85.5 H Lymphocytes % 10.1 Monocytes % 3.5 L Eosinophils % 0.6 D Basophils % 0.3 Nucleated RBC % 0 Anticoagulation Therapy Puncture Site ABG pH ABG pCO2 at Pt Temp ABG pO2 at Pt Temp ABG HCO3 ABG O2 Sat (Measured) ABG O2 Content ABG Base Excess Oziel Test O2 Delivery Device Oxygen Flow Rate Vent Mode Vent Rate Mechanical Rate PEEP Pressure Support Vent Sodium 145 Potassium 4.5 Chloride 111 H Carbon Dioxide 29 Anion Gap 6 L BUN 57 H Creatinine 1.3 Creat Clearance w eGFR 55.06 POC Glucometer Random Glucose 197 H Lactic Acid 0.9 Calcium 7.8 L Phosphorus 4.2 Magnesium 3.0 H Total Bilirubin 0.4 AST 25 ALT 25 Alkaline Phosphatase 107 Total Protein 5.1 L Albumin 1.9 L 05/25/18 06:00 WBC RBC Hgb Hct MCV MCH MCHC RDW Plt Count MPV Absolute Neuts (auto) Neutrophils % Lymphocytes % Monocytes % Eosinophils % Basophils % Nucleated RBC % Anticoagulation Therapy No Result Required. Puncture Site Right radial ABG pH 7.41 ABG pCO2 at Pt Temp 42.4 ABG pO2 at Pt Temp 254.0 H* ABG HCO3 26.5 H ABG O2 Sat (Measured) 99.3 H ABG O2 Content 16.7 ABG Base Excess 2.2 H Oziel Test Positive O2 Delivery Device Vent Oxygen Flow Rate 45 Vent Mode A/c Vent Rate 16 Mechanical Rate No Result Required. PEEP 8.0 Pressure Support Vent 450 Sodium Potassium Chloride Carbon Dioxide Anion Gap BUN Creatinine Creat Clearance w eGFR POC Glucometer Random Glucose Lactic Acid Calcium Phosphorus Magnesium Total Bilirubin AST ALT Alkaline Phosphatase Total Protein Albumin Active Medications Generic Name Dose Route Start Last Admin Trade Name Freq PRN Reason Stop Dose Admin Acetaminophen 650 mg 05/13/18 10:24 05/21/18 21:22 Tylenol - PO 650 mg Q6H PRN Administration FEVER Acetylcysteine 200 mg 05/24/18 12:00 05/25/18 11:45 Mucomyst 20 Oral / Inh Use Only* NEB 200 mg RQID HIEN Administration Albuterol Sulfate 1 amp 05/24/18 12:00 05/25/18 11:45 Ventolin 0.083% Nebulizer Soln - NEB 1 amp RQID HIEN Administration Amlodipine Besylate 10 mg 05/13/18 10:00 05/25/18 09:01 Norvasc - PO 10 mg DAILY [facility] Administration Aspirin 81 mg 05/15/18 10:00 05/25/18 09:00 Ecotrin - PO 81 mg DAILY HIEN Administration Atorvastatin Calcium 80 mg 05/13/18 22:00 05/24/18 22:20 Lipitor - PO 80 mg HS [facility]EN Administration Docusate Sodium 100 mg 05/11/18 22:00 05/25/18 13:57 Colace - PO Not Given TID HIEN Heparin Sodium (Porcine) 5,000 unit 05/19/18 06:00 05/25/18 13:56 Heparin - SQ 5,000 unit TID [facility] Administration Propofol 1,000,000 mcg in 100 mls @ 2.507 mls/hr 05/14/18 23:45 05/25/18 00: 20 Diprivan - IVPB 20 mcg/kg/min TITR HIEN 10.026 mls/hr Titration Protocol 5 MCG/KG/MIN Piperacillin Sod/Tazobactam 50 mls @ 100 mls/hr 05/15/18 18:00 05/25/18 08:59 Sod 3.375 gm/ Dextrose IVPB 100 mls/hr Q8H-IV [facility] Administration Protocol Vancomycin HCl 1,000 mg in 250 mls @ 200 mls/hr 05/19/18 11:30 05/25/18 11:44 Vancomycin (Pre-Docked) IVPB 200 mls/hr Q24H [facility] Administration Protocol Insulin Aspart 1 vial 05/22/18 11:00 05/25/18 11:42 Novolog Vial Sliding Scale - SQ Not Given ACHS [facility] Protocol Insulin Detemir 14 units 05/22/18 22:00 05/24/18 22:20 Levemir Vial SQ 14 units HS [facility] Administration Labetalol HCl 200 mg/ 300 mg 05/13/18 14:00 05/25/18 13:56 Labetalol HCl 100 mg PO 300 mg TID [facility] Administration Levetiracetam 500 mg 05/11/18 22:00 05/25/18 09:00 Keppra Injection - IVPB 500 mg BID [facility]EN Administration Lisinopril 10 mg 05/22/18 12:15 05/25/18 09:42 Prinivil PO 10 mg DAILY [facility] Administration Ondansetron HCl 4 mg 05/11/18 17:57 05/11/18 19:00 Zofran Injection IVPUSH 4 mg Q6H PRN Administration NAUSEA AND/OR VOMITING Pantoprazole Sodium 40 mg 05/12/18 10:00 05/25/18 09:00 Protonix Iv IVPUSH 40 mg DAILY [facility] Administration ASSESSMENT/PLAN: Assessment: 67 yo M w a hx of AFIB, recent hemorrhagic CVA, T2DM is here s/p Left frontal craniotomy and blood clot removal after being operated on by Dr. Taveras. Complete white out of Left lung today - probably secondary to aspiration. Patient failed extubation and is now re-intubated. -He will need a tracheostomy moving forward given he has been intubated 3 times now. - Spoke with Dr. Taveras today who agrees with the plan that trach is the best option moving forward. - Called patient's sister twice today to try and discuss goals of care but no answer. Sister - Yuni Feldman: [phone] BUN today - 57, Cr 01.3 Decadron stopped. glucose WNL on sliding scale. Plan: Nephro: - QI - likely Pre-renal injury. Improving. - Kidney US showed no hydronephrosis or stones b/l - Urine lites support pre-renal injury. - Renal on board Cardio: - Strict BP control with systolic < 130 - Lebatalol for elevated BP or rate control PRN - Patient is on home meds ID: - ID consulted - PNA: Abx for HCAP vs aspiration. - Positive Strep pneumo in the urine. - Positive MRSA in sputum - Positive E fecalis in urine - Vanc and zosyn being given - Contact precautions Pulm: - intubated - ABG daily - Total white out of left lung yesterday. - CXR improved since yesterday. Neuro: - Daily sedation vacations to assess mental status - Keppra 500 mg for seizure prohylaxis. - Head of the bead 30 degrees. GI: - Aspiration precautions. - Protonix 40 - Zofran PRN Endo: - Sliding scale - frequent glucose checks Prophylaxis: - Aspiration precautions. - Heparin 5000 TID F/E/N: - Tube Feeds with glucerna via NG tube - Replete lytes PRN - No standing fluids today Code Status: - Full code - Continue to speak with family regarding goals of care and explain tracheostomy requirements. - Called patient's sister twice today to try and discuss goals of care but no answer. Sister Hernandez Feldman: [phone] Dispo: - Patient will continue to receive monitoring in the ICU. Visit type - Emergency Visit Emergency Visit: Yes ED Registration Date: 05/10/18 Care time: The patient presented to the Emergency Department on the above date and was hospitalized for further evaluation of their emergent condition. - New Patient This patient is new to me today: No - Critical Care Critical Care patient: Yes Total Critical Care Time (in minutes): 36 Critical Care Statement: The care of this patient involved high complexity decision making to prevent further life threatening deterioration of the patient 's condition and/or to evaluate & treat vital organ system(s) failure or risk of failure.
[2018-05-25] MEDS ORDERED: PROPOFOL 1,000,000 MCG/100 ML VIAL ONE (16:40)
--- NOTE | 2018-05-25 19:55 | PN ---
Progress Note, Physician History of Present Illness: Poorly responsive on ventilator Afebrile WBC WNL Sputum c/s mixed, including MRSA Urine pneumococcal ag + Azotemia improved - Current Medication List Current Medications: Active Medications Acetaminophen (Tylenol -) 650 mg PO Q6H PRN PRN Reason: FEVER Last Admin: 05/21/18 21:22 Dose: 650 mg Acetylcysteine (Mucomyst 20 Oral / Inh Use Only*) 200 mg NEB RQID HIEN Last Admin: 05/25/18 15:23 Dose: 200 mg Albuterol Sulfate (Ventolin 0.083% Nebulizer Soln -) 1 amp NEB RQID [facility]EN Last Admin: 05/25/18 15:23 Dose: 1 amp Amlodipine Besylate (Norvasc -) 10 mg PO DAILY [facility] Last Admin: 05/25/18 09:01 Dose: 10 mg Aspirin (Ecotrin -) 81 mg PO DAILY [facility] Last Admin: 05/25/18 09:00 Dose: 81 mg Atorvastatin Calcium (Lipitor -) 80 mg PO HS [facility] Last Admin: 05/24/18 22:20 Dose: 80 mg Docusate Sodium (Colace -) 100 mg PO TID [facility] Last Admin: 05/25/18 13:57 Dose: Not Given Heparin Sodium (Porcine) (Heparin -) 5,000 unit SQ TID [facility] Last Admin: 05/25/18 13:56 Dose: 5,000 unit Propofol (Diprivan -) 1,000,000 mcg in 100 mls @ 2.507 mls/hr IVPB TITR [facility]; Protocol Last Titration: 05/25/18 00:20 Dose: 20 mcg/kg/min, 10.026 mls/hr Piperacillin Sod/Tazobactam (Sod 3.375 gm/ Dextrose) 50 mls @ 100 mls/hr IVPB Q8H-IV [facility]; Protocol Last Admin: 05/25/18 16:59 Dose: 100 mls/hr Vancomycin HCl (Vancomycin (Pre-Docked)) 1,000 mg in 250 mls @ 200 mls/hr IVPB Q24H [facility]; Protocol Last Admin: 05/25/18 11:44 Dose: 200 mls/hr Insulin Aspart (Novolog Vial Sliding Scale -) 1 vial SQ ACHS [facility]; Protocol Last Admin: 05/25/18 16:59 Dose: Not Given Insulin Detemir (Levemir Vial) 14 units SQ HS [facility] Last Admin: 05/24/18 22:20 Dose: 14 units Labetalol HCl 200 mg/ (Labetalol HCl 100 mg) 300 mg PO TID [facility] Last Admin: 05/25/18 13:56 Dose: 300 mg Levetiracetam (Keppra Injection -) 500 mg IVPB BID [facility] Last Admin: 05/25/18 09:00 Dose: 500 mg Lisinopril (Prinivil) 10 mg PO DAILY [facility] Last Admin: 05/25/18 09:42 Dose: 10 mg Ondansetron HCl (Zofran Injection) 4 mg IVPUSH Q6H PRN PRN Reason: NAUSEA AND/OR VOMITING Last Admin: 05/11/18 19:00 Dose: 4 mg Pantoprazole Sodium (Protonix Iv) 40 mg IVPUSH DAILY [facility] Last Admin: 05/25/18 09:00 Dose: 40 mg - Objective Vital Signs: Vital Signs Temperature 98.8 F 05/25/18 16:00 Pulse Rate 85 05/25/18 18:00 Respiratory Rate 22 H 05/25/18 18:35 Blood Pressure 103/65 05/25/18 18:00 O2 Sat by Pulse Oximetry (%) 100 05/24/18 21:00 Constitutional: Yes: No Distress Cardiovascular: Yes: Regular Rate and Rhythm, S1, S2 Respiratory: Yes: Mechanically Ventilated Gastrointestinal: Yes: Normal Bowel Sounds, Soft Labs: CBC, BMP 05/25/18 05:30 05/25/18 05:30 INR, PTT INR 1.06 (0.83-1.09) 05/10/18 16:15 Assessment/Plan LLL pneumonia + sputum c/s MRSA/ mixed + pneumococcal ag Respiratory failure S/P craniotomy S/A AVR Azotemia improved Uncontrolled DM Continue zosyn/ vancomycin Contact precautions MRSA
[2018-05-25] MEDS: ATORVASTATIN CA 80 MG TABLET (FP) PO SCH (21:15)
[2018-05-26] MEDS: PROPOFOL 1,000,000 MCG/100 ML VIAL IVPB SCH (00:24)
[2018-05-26] MEDS: INSULIN SLIDING SCALE (NOVOLOG) 1 VIAL SQ SCH ×5 (00:29→22:02)
[2018-05-26] MEDS: INSULIN (LEVEMIR) 100 UNITS/ML UNITS SQ SCH ×2 (00:31→22:01)
[2018-05-26] MEDS: PIPERACILLIN/TAZOB 3.375 GM 3.375 GM in DEXTROSE 5%-WATER - 50 ML IVPB SCH ×3 (02:13→17:36)
[2018-05-26] MEDS ORDERED: LABETALOL HCL 100 MG TABLET (FP) ONE ×3 (06:06→21:31)
[2018-05-26] MEDS ORDERED: LABETALOL HCL 200 MG TABLET (FP) ONE ×3 (06:06→21:31)
[2018-05-26] MEDS ORDERED: PT OWN MED DRAWER 7, Y5N ONE (06:07)
[2018-05-26] MEDS: LABETALOL HCL 200 MG, LABETALOL HCL 100 MG PO SCH ×3 (06:09→22:02)
[2018-05-26] MEDS: HEPARIN NA (PORCINE) 5,000 UNITS/ML 1ML VIAL SQ SCH ×3 (06:10→22:01)
[2018-05-26] MEDS: DOCUSATE SODIUM 100 MG CAPSULE (FP) PO SCH ×3 (06:10→22:01)
[2018-05-26 06:26] LABS: ALBUMIN 1.9 g/dl (3.4-5.0); ALK PHOS 112 U/L (45-117); ANION GAP 7 MMOL/L (8-16); BILIRUBIN,TOTAL 0.4 mg/dL (0.2-1); BLOOD UREA NITROGEN 63 mg/dL (7-18); CALCIUM 7.7 mg/dL (8.5-10.1); CHLORIDE 108 mmol/L (98-107); CO2 27 mmol/L (21-32); CREATININE 1.3 mg/dL (0.55-1.3); GLUCOSE,RANDOM 242 mg/dL (74-106); MAGNESIUM 2.8 mg/dL (1.8-2.4); PHOSPHOROUS 3.4 mg/dL (2.5-4.9); POTASSIUM 4.6 mmol/L (3.5-5.1); SGOT/AST 19 U/L (15-37); SGPT/ALT 27 U/L (13-61); SODIUM 143 mmol/L (136-145); TOT PROT 5.1 g/dl (6.4-8.2)
[2018-05-26 06:34] LABS: BASO % 0.5 % (0-2.0); HEMOGLOBIN 9.3 GM/dL (11.7-16.9); LYMPH % 8.8 % (8-40); MCH 27.2 pg (25.7-33.7); MCHC 32.1 g/dl (32.0-35.9); MEAN CELL VOLUME 84.7 fl (80-96); MEAN PLT VOLUME 12.2 fl (7.5-11.1); NEUT % 84.7 % (42.8-82.8); PLATELET COUNT 106 K/MM3 (134-434); RBC 3.42 M/mm3 (4.00-5.60); RDW 13.7 % (11.9-15.9)
[2018-05-26] MEDS: ALBUTEROL SO4 0.083% IH SOL 2.5 MG/3 ML VIAL.NEB. NEB SCH ×4 (07:30→21:05)
[2018-05-26] MEDS: ACETYLCYSTEINE 20% 200MG/ML 4 ML VIAL *FOR ORAL / INH USE ONLY NEB SCH ×4 (07:30→21:05)
[2018-05-26] MEDS ORDERED: DEXTROSE 5%-WATER - 50 ML IVPB ONE ×2 (10:19→17:24)
[2018-05-26] MEDS ORDERED: PIPERACILLIN/TAZOBACTAM 3.375 GM VIAL IVPB ONE ×2 (10:19→17:24)
[2018-05-26] MEDS: VANCOMYCIN 1 GRAM (PRE-DOCKED) 1,000 MG/250 ML BAG IVPB SCH (10:38)
[2018-05-26] MEDS: PANTOPRAZOLE SODIUM 40 MG VIAL IVPUSH SCH (10:40)
[2018-05-26] MEDS: levETIRAcetam 500 MG/5 ML INJECTION VIAL IVPB SCH ×2 (10:41→22:01)
[2018-05-26] MEDS: amLODIPine BESYLATE 10 MG TABLET (FP) PO SCH (10:41)
[2018-05-26] MEDS: ASPIRIN COATED 81 MG TABLET.EC PO SCH (10:41)
[2018-05-26] MEDS: LISINOPRIL 10 MG TABLET (FP) PO SCH (10:41)
--- NOTE | 2018-05-26 11:50 | PN ---
Progress Note, Physician History of Present Illness: Poorly responsive on ventilator Low grade temp WBC WNL Plt remain low 106K Sputum c/s normal shreya Urine pneumococcal ag + Azotemia improved - Current Medication List Current Medications: Active Medications Acetaminophen (Tylenol -) 650 mg PO Q6H PRN PRN Reason: FEVER Last Admin: 05/21/18 21:22 Dose: 650 mg Acetylcysteine (Mucomyst 20 Oral / Inh Use Only*) 200 mg NEB RQID HIEN Last Admin: 05/26/18 07:30 Dose: 200 mg Albuterol Sulfate (Ventolin 0.083% Nebulizer Soln -) 1 amp NEB RQID [facility] Last Admin: 05/26/18 07:30 Dose: 1 amp Amlodipine Besylate (Norvasc -) 10 mg PO DAILY [facility] [place] Last Admin: 05/26/18 10:41 Dose: 10 mg Aspirin (Ecotrin -) 81 mg PO DAILY [facility] [place] Last Admin: 05/26/18 10:41 Dose: 81 mg Atorvastatin Calcium (Lipitor -) 80 mg PO HS [facility] Last Admin: 05/25/18 21:15 Dose: 80 mg Docusate Sodium (Colace -) 100 mg PO TID [facility] Last Admin: 05/26/18 06:10 Dose: Not Given Heparin Sodium (Porcine) (Heparin -) 5,000 unit SQ TID [facility] Last Admin: 05/26/18 06:10 Dose: 5,000 unit Propofol (Diprivan -) 1,000,000 mcg in 100 mls @ 2.507 mls/hr IVPB TITR [facility] [place]; Protocol Last Admin: 05/26/18 00:24 Dose: 20 mcg/kg/min, 10.026 mls/hr Piperacillin Sod/Tazobactam (Sod 3.375 gm/ Dextrose) 50 mls @ 100 mls/hr IVPB Q8H-IV [facility]; Protocol Last Admin: 05/26/18 10:37 Dose: 100 mls/hr Vancomycin HCl (Vancomycin (Pre-Docked)) 1,000 mg in 250 mls @ 200 mls/hr IVPB Q24H [facility] [place]; Protocol Last Admin: 05/26/18 10:38 Dose: 200 mls/hr Insulin Aspart (Novolog Vial Sliding Scale -) 1 vial SQ ACHS [facility] [place]; Protocol Last Admin: 05/26/18 06:10 Dose: 8 units Insulin Detemir (Levemir Vial) 14 units SQ HS [facility] Last Admin: 05/26/18 00:31 Dose: 14 units Labetalol HCl 200 mg/ (Labetalol HCl 100 mg) 300 mg PO TID [facility] [place] Last Admin: 05/26/18 06:09 Dose: 300 mg Levetiracetam (Keppra Injection -) 500 mg IVPB BID [facility] Last Admin: 05/26/18 10:41 Dose: 500 mg Lisinopril (Prinivil) 10 mg PO DAILY [facility] Last Admin: 05/26/18 10:41 Dose: 10 mg Ondansetron HCl (Zofran Injection) 4 mg IVPUSH Q6H PRN PRN Reason: NAUSEA AND/OR VOMITING Last Admin: 05/11/18 19:00 Dose: 4 mg Pantoprazole Sodium (Protonix Iv) 40 mg IVPUSH DAILY [facility] Last Admin: 05/26/18 10:40 Dose: 40 mg - Objective Vital Signs: Vital Signs Temperature 99.7 F H 05/26/18 10:00 Pulse Rate 89 05/26/18 10:10 Respiratory Rate 16 05/26/18 10:10 Blood Pressure 115/67 05/26/18 10:00 O2 Sat by Pulse Oximetry (%) 98 05/26/18 10:10 Constitutional: Yes: No Distress Eyes: Yes: Conjunctiva Clear HENT: Yes: Other (craniotomy wound no erythema/ drainage) Cardiovascular: Yes: Regular Rate and Rhythm, S1, S2 Respiratory: Yes: Mechanically Ventilated Gastrointestinal: Yes: Normal Bowel Sounds, Soft. No: Tenderness Edema: Yes Labs: CBC, BMP 05/26/18 05:30 05/26/18 05:30 INR, PTT INR 1.06 (0.83-1.09) 05/10/18 16:15 Assessment/Plan LLL pneumonia + sputum c/s MRSA/ mixed + pneumococcal ag Respiratory failure S/P craniotomy S/A AVR Azotemia resolved Uncontrolled DM Continue zosyn/ vancomycin Contact precautions MRSA
--- NOTE | 2018-05-26 12:19 | PN ---
Progress Note, Physician - Current Medication List Current Medications: Active Medications Acetaminophen (Tylenol -) 650 mg PO Q6H PRN PRN Reason: FEVER Last Admin: 05/21/18 21:22 Dose: 650 mg Acetylcysteine (Mucomyst 20 Oral / Inh Use Only*) 200 mg NEB RQID [facility] Last Admin: 05/26/18 11:49 Dose: 200 mg Albuterol Sulfate (Ventolin 0.083% Nebulizer Soln -) 1 amp NEB RQID [facility] Last Admin: 05/26/18 11:49 Dose: 1 amp Amlodipine Besylate (Norvasc -) 10 mg PO DAILY [facility] Last Admin: 05/26/18 10:41 Dose: 10 mg Aspirin (Ecotrin -) 81 mg PO DAILY [facility] Last Admin: 05/26/18 10:41 Dose: 81 mg Atorvastatin Calcium (Lipitor -) 80 mg PO HS [facility] Last Admin: 05/25/18 21:15 Dose: 80 mg Docusate Sodium (Colace -) 100 mg PO TID [facility] Last Admin: 05/26/18 06:10 Dose: Not Given Heparin Sodium (Porcine) (Heparin -) 5,000 unit SQ TID [facility] Last Admin: 05/26/18 06:10 Dose: 5,000 unit Propofol (Diprivan -) 1,000,000 mcg in 100 mls @ 2.507 mls/hr IVPB TITR [facility]; Protocol Last Admin: 05/26/18 00:24 Dose: 20 mcg/kg/min, 10.026 mls/hr Piperacillin Sod/Tazobactam (Sod 3.375 gm/ Dextrose) 50 mls @ 100 mls/hr IVPB Q8H-IV [facility]; Protocol Last Admin: 05/26/18 10:37 Dose: 100 mls/hr Vancomycin HCl (Vancomycin (Pre-Docked)) 1,000 mg in 250 mls @ 200 mls/hr IVPB Q24H [facility]; Protocol Last Admin: 05/26/18 10:38 Dose: 200 mls/hr Insulin Aspart (Novolog Vial Sliding Scale -) 1 vial SQ ACHS [facility]; Protocol Last Admin: 05/26/18 12:00 Dose: 10 units Insulin Detemir (Levemir Vial) 14 units SQ HS [facility] Last Admin: 05/26/18 00:31 Dose: 14 units Labetalol HCl 200 mg/ (Labetalol HCl 100 mg) 300 mg PO TID [facility] Last Admin: 05/26/18 06:09 Dose: 300 mg Levetiracetam (Keppra Injection -) 500 mg IVPB BID [facility] Last Admin: 05/26/18 10:41 Dose: 500 mg Lisinopril (Prinivil) 10 mg PO DAILY [facility] Last Admin: 05/26/18 10:41 Dose: 10 mg Ondansetron HCl (Zofran Injection) 4 mg IVPUSH Q6H PRN PRN Reason: NAUSEA AND/OR VOMITING Last Admin: 05/11/18 19:00 Dose: 4 mg Pantoprazole Sodium (Protonix Iv) 40 mg IVPUSH DAILY [facility] Last Admin: 05/26/18 10:40 Dose: 40 mg - Objective Vital Signs: Vital Signs Temperature 99.7 F H 05/26/18 10:00 Pulse Rate 90 05/26/18 12:00 Respiratory Rate 16 05/26/18 12:02 Blood Pressure 120/64 05/26/18 12:00 O2 Sat by Pulse Oximetry (%) 98 05/26/18 10:10 Cardiovascular: Yes: S1, S2 Respiratory: Yes: Mechanically Ventilated Gastrointestinal: Yes: Normal Bowel Sounds, Soft Labs: CBC, BMP 05/26/18 05:30 05/26/18 05:30 INR, PTT INR 1.06 (0.83-1.09) 05/10/18 16:15 Problem List - Problems (1) Intracranial bleed Code(s): I62.9 - NONTRAUMATIC INTRACRANIAL HEMORRHAGE, UNSPECIFIED (2) Diabetes Code(s): E11.9 - TYPE 2 DIABETES MELLITUS WITHOUT COMPLICATIONS Qualifiers: Diabetes mellitus type: type 2 (3) HTN (hypertension) Code(s): I10 - ESSENTIAL (PRIMARY) HYPERTENSION (4) Respiratory failure Code(s): J96.90 - RESPIRATORY FAILURE, UNSP, UNSP W HYPOXIA OR HYPERCAPNIA Assessment/Plan - Problems (1) S/P craniotomy Assessment/Plan: on keppra for seizure s/o removal of thalamic mass Code(s): Z98.890 - OTHER SPECIFIED POSTPROCEDURAL STATES (2) Hypernatremia Assessment/Plan: sodium is better today Code(s): E87.0 - HYPEROSMOLALITY AND HYPERNATREMIA (3) Respiratory failure Assessment/Plan: intubated karmen need tracheostomy Code(s): J96.90 - RESPIRATORY FAILURE, UNSP, UNSP W HYPOXIA OR HYPERCAPNIA (4) Diabetes Assessment/Plan: seen by endo levemir and sliding scale Code(s): E11.9 - TYPE 2 DIABETES MELLITUS WITHOUT COMPLICATIONS Qualifiers: Diabetes mellitus type: type 2 (5) HTN (hypertension) Assessment/Plan: labetolol,norvasc,lisinopril Code(s): I10 - ESSENTIAL (PRIMARY) HYPERTENSION (6) Pneumonia Assessment/Plan: Microbiology 05/15/18 19:15 Sputum - Endotrachea Suction/Ventilator Gram Stain - Final 05/15/18 19:15 Sputum - Endotrachea Suction/Ventilator Sputum Culture - Final Mr S Aureus Klebsiella Pneumoniae Diphtheroid/Corynebacterium MRSA contact precautions,isolation vanco and zosyn Code(s): J18.9 - PNEUMONIA, UNSPECIFIED ORGANISM
[2018-05-26] MEDS ORDERED: PROPOFOL 1,000,000 MCG/100 ML VIAL ONE (14:21)
--- NOTE | 2018-05-26 14:54 | PN ---
Teaching Attending Note Name of Resident: Jas Thompson ATTENDING PHYSICIAN STATEMENT I saw and evaluated the patient. I reviewed the resident's note and discussed the case with the resident. I agree with the resident's findings and plan as documented. SUBJECTIVE: Patient seen and examined in the ICU. Remains intubated, sedated. No overall change in overall condition. Attempts to reach family about GOC have failed. OBJECTIVE: Intake & Output 05/23/18 05/24/18 05/25/18 05/26/18 23:59 23:59 23:59 23:59 Intake Total 2084 296 2116 2042.3 Output Total 1800 3934 987 6994 Balance 284 -1204 1216 442.3 Weight 171 lb 4.8 oz 166 lb 7.184 oz 169 lb 4.8 oz 170 lb 3.15 oz Last Vital Signs Temp Pulse Resp BP Pulse Ox 99.4 F 81 16 129/82 99 05/26/18 14:00 05/26/18 14:00 05/26/18 14:40 05/26/18 14:00 05/26/18 12:00 Active Medications Acetaminophen (Tylenol -) 650 mg PO Q6H PRN PRN Reason: FEVER Last Admin: 05/21/18 21:22 Dose: 650 mg Acetylcysteine (Mucomyst 20 Oral / Inh Use Only*) 200 mg NEB RQID [facility] Last Admin: 05/26/18 11:49 Dose: 200 mg Albuterol Sulfate (Ventolin 0.083% Nebulizer Soln -) 1 amp NEB RQID [facility] Last Admin: 05/26/18 11:49 Dose: 1 amp Amlodipine Besylate (Norvasc -) 10 mg PO DAILY [facility] Last Admin: 05/26/18 10:41 Dose: 10 mg Aspirin (Ecotrin -) 81 mg PO DAILY [facility] Last Admin: 05/26/18 10:41 Dose: 81 mg Atorvastatin Calcium (Lipitor -) 80 mg PO HS [facility] Last Admin: 05/25/18 21:15 Dose: 80 mg Docusate Sodium (Colace -) 100 mg PO TID [facility] Last Admin: 05/26/18 14:32 Dose: 100 mg Heparin Sodium (Porcine) (Heparin -) 5,000 unit SQ TID [facility] Last Admin: 05/26/18 14:32 Dose: 5,000 unit Propofol (Diprivan -) 1,000,000 mcg in 100 mls @ 2.507 mls/hr IVPB TITR [facility]; Protocol Last Admin: 05/26/18 00:24 Dose: 20 mcg/kg/min, 10.026 mls/hr Piperacillin Sod/Tazobactam (Sod 3.375 gm/ Dextrose) 50 mls @ 100 mls/hr IVPB Q8H-IV [facility]; Protocol Last Admin: 05/26/18 10:37 Dose: 100 mls/hr Vancomycin HCl (Vancomycin (Pre-Docked)) 1,000 mg in 250 mls @ 200 mls/hr IVPB Q24H [facility]; Protocol Last Admin: 05/26/18 10:38 Dose: 200 mls/hr Insulin Aspart (Novolog Vial Sliding Scale -) 1 vial SQ ACHS [facility]; Protocol Last Admin: 05/26/18 12:00 Dose: 10 units Insulin Detemir (Levemir Vial) 14 units SQ HS [facility] Last Admin: 05/26/18 00:31 Dose: 14 units Labetalol HCl 200 mg/ (Labetalol HCl 100 mg) 300 mg PO TID [facility] Last Admin: 05/26/18 14:32 Dose: 300 mg Levetiracetam (Keppra Injection -) 500 mg IVPB BID [facility] Last Admin: 05/26/18 10:41 Dose: 500 mg Lisinopril (Prinivil) 10 mg PO DAILY [facility] Last Admin: 05/26/18 10:41 Dose: 10 mg Ondansetron HCl (Zofran Injection) 4 mg IVPUSH Q6H PRN PRN Reason: NAUSEA AND/OR VOMITING Last Admin: 05/11/18 19:00 Dose: 4 mg Pantoprazole Sodium (Protonix Iv) 40 mg IVPUSH DAILY [facility] Last Admin: 05/26/18 10:40 Dose: 40 mg Gen: intubated, sedated Heart: RRR Lung: scattered rhonchi Abd: soft, nontender Ext: 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 Laboratory Results - last 24 hr 05/24/18 05/24/18 05/24/18 12:30 17:26 22:10 WBC RBC Hgb Hct MCV MCH MCHC RDW Plt Count MPV Absolute Neuts (auto) Neutrophils % Lymphocytes % Monocytes % Eosinophils % Basophils % Nucleated RBC % Sodium Potassium Chloride Carbon Dioxide Anion Gap BUN Creatinine Creat Clearance w eGFR POC Glucometer 205.60491 162.40478 198.69253 Random Glucose Calcium Phosphorus Magnesium Total Bilirubin AST ALT Alkaline Phosphatase Total Protein Albumin 05/25/18 05/25/18 05/25/18 06:00 11:28 16:34 WBC RBC Hgb Hct MCV MCH MCHC RDW Plt Count MPV Absolute Neuts (auto) Neutrophils % Lymphocytes % Monocytes % Eosinophils % Basophils % Nucleated RBC % Sodium Potassium Chloride Carbon Dioxide Anion Gap BUN Creatinine Creat Clearance w eGFR POC Glucometer 209.86039 59.20136 137.54626 Random Glucose Calcium Phosphorus Magnesium Total Bilirubin AST ALT Alkaline Phosphatase Total Protein Albumin 05/26/18 05/26/18 05/26/18 00:24 05:30 05:30 WBC 9.0 RBC 3.42 L Hgb 9.3 L Hct 29.0 L MCV 84.7 MCH 27.2 MCHC 32.1 RDW 13.7 Plt Count 106 L MPV 12.2 H Absolute Neuts (auto) 7.7 Neutrophils % 84.7 H Lymphocytes % 8.8 Monocytes % 5.0 Eosinophils % 1.0 Basophils % 0.5 Nucleated RBC % 0 Sodium 143 Potassium 4.6 Chloride 108 H Carbon Dioxide 27 Anion Gap 7 L BUN 63 H Creatinine 1.3 Creat Clearance w eGFR 55.06 POC Glucometer 335.79382 Random Glucose 242 H Calcium 7.7 L Phosphorus 3.4 Magnesium 2.8 H Total Bilirubin 0.4 AST 19 ALT 27 Alkaline Phosphatase 112 Total Protein 5.1 L Albumin 1.9 L ASSESSMENT AND PLAN: 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
--- NOTE | 2018-05-26 17:05 | PN ---
Physical Exam: SUBJECTIVE: Patient seen and examined at bedside. Patient remains intubated and sedated. No acute events overnight. Family coming today to discuss goals of care. Dr. Wagner consulted for possible tracheostomy pending HCP's consent. Sister Hernandez Feldman: [phone] OBJECTIVE: Vital Signs Period Temp Pulse Resp BP Sys/Goel Pulse Ox Last 24 Hr 99.4 F-99.9 F 80-111 16-22 103-137/59-82 97-99 GENERAL: The patient is intubated and sedated. HEAD: Normal with no signs of trauma. EYES: PERRLA, sclera anicteric, conjunctiva clear. ENT: Ears normal, nares patent, moist mucous membranes. NECK: Trachea midline, supple. LUNGS: +scattered bronchi bilaterally HEART: Regular rate and irregular rhythm, S1, S2 without murmur, rub or gallop. ABDOMEN: Soft, nontender, nondistended, normoactive bowel sounds. EXTREMITIES: 2+ pulses, warm, well-perfused, no edema. SKIN: Warm, dry, normal turgor, no rashes or lesions noted Laboratory Results - last 24 hr 05/24/18 05/24/18 05/24/18 12:30 17:26 22:10 WBC RBC Hgb Hct MCV MCH MCHC RDW Plt Count MPV Absolute Neuts (auto) Neutrophils % Lymphocytes % Monocytes % Eosinophils % Basophils % Nucleated RBC % Sodium Potassium Chloride Carbon Dioxide Anion Gap BUN Creatinine Creat Clearance w eGFR POC Glucometer 205.77170 162.93349 198.43423 Random Glucose Calcium Phosphorus Magnesium Total Bilirubin AST ALT Alkaline Phosphatase Total Protein Albumin 05/25/18 05/25/18 05/25/18 06:00 11:28 16:34 WBC RBC Hgb Hct MCV MCH MCHC RDW Plt Count MPV Absolute Neuts (auto) Neutrophils % Lymphocytes % Monocytes % Eosinophils % Basophils % Nucleated RBC % Sodium Potassium Chloride Carbon Dioxide Anion Gap BUN Creatinine Creat Clearance w eGFR POC Glucometer 209.05345 59.16106 137.37530 Random Glucose Calcium Phosphorus Magnesium Total Bilirubin AST ALT Alkaline Phosphatase Total Protein Albumin 05/26/18 05/26/18 05/26/18 00:24 05:30 05:30 WBC 9.0 RBC 3.42 L Hgb 9.3 L Hct 29.0 L MCV 84.7 MCH 27.2 MCHC 32.1 RDW 13.7 Plt Count 106 L MPV 12.2 H Absolute Neuts (auto) 7.7 Neutrophils % 84.7 H Lymphocytes % 8.8 Monocytes % 5.0 Eosinophils % 1.0 Basophils % 0.5 Nucleated RBC % 0 Sodium 143 Potassium 4.6 Chloride 108 H Carbon Dioxide 27 Anion Gap 7 L BUN 63 H Creatinine 1.3 Creat Clearance w eGFR 55.06 POC Glucometer 335.47499 Random Glucose 242 H Calcium 7.7 L Phosphorus 3.4 Magnesium 2.8 H Total Bilirubin 0.4 AST 19 ALT 27 Alkaline Phosphatase 112 Total Protein 5.1 L Albumin 1.9 L Active Medications Generic Name Dose Route Start Last Admin Trade Name Freq PRN Reason Stop Dose Admin Acetaminophen 650 mg 05/13/18 10:24 05/21/18 21:22 Tylenol - PO 650 mg Q6H PRN Administration FEVER Acetylcysteine 200 mg 05/24/18 12:00 05/26/18 16:11 Mucomyst 20 Oral / Inh Use Only* NEB 200 mg RQID [facility] Administration Albuterol Sulfate 1 amp 05/24/18 12:00 05/26/18 16:11 Ventolin 0.083% Nebulizer Soln - NEB 1 amp RQID [facility] Administration Amlodipine Besylate 10 mg 05/13/18 10:00 05/26/18 10:41 Norvasc - PO 10 mg DAILY [facility] Administration Aspirin 81 mg 05/15/18 10:00 05/26/18 10:41 Ecotrin - PO 81 mg DAILY [facility] Administration Atorvastatin Calcium 80 mg 05/13/18 22:00 05/25/18 21:15 Lipitor - PO 80 mg HS [facility] Administration Docusate Sodium 100 mg 05/11/18 22:00 05/26/18 14:32 Colace - PO 100 mg TID [facility] Administration Heparin Sodium (Porcine) 5,000 unit 05/19/18 06:00 05/26/18 14:32 Heparin - SQ 5,000 unit TID [facility] Administration Propofol 1,000,000 mcg in 100 mls @ 2.507 mls/hr 05/14/18 23:45 05/26/18 00: 24 Diprivan - IVPB 20 mcg/kg/min TITR [facility] 10.026 mls/hr Administration Protocol 5 MCG/KG/MIN Piperacillin Sod/Tazobactam 50 mls @ 100 mls/hr 05/15/18 18:00 05/26/18 10:37 Sod 3.375 gm/ Dextrose IVPB 100 mls/hr Q8H-IV [facility] Administration Protocol Vancomycin HCl 1,000 mg in 250 mls @ 200 mls/hr 05/19/18 11:30 05/26/18 10:38 Vancomycin (Pre-Docked) IVPB 200 mls/hr Q24H [facility] Administration Protocol Insulin Aspart 1 vial 05/22/18 11:00 05/26/18 12:00 Novolog Vial Sliding Scale - SQ 10 units ACHS [facility] Administration Protocol Insulin Detemir 14 units 05/22/18 22:00 05/26/18 00:31 Levemir Vial SQ 14 units HS [facility] Administration Labetalol HCl 200 mg/ 300 mg 05/13/18 14:00 05/26/18 14:32 Labetalol HCl 100 mg PO 300 mg TID [facility] Administration Levetiracetam 500 mg 05/11/18 22:00 05/26/18 10:41 Keppra Injection - IVPB 500 mg BID [facility] Administration Lisinopril 10 mg 05/22/18 12:15 05/26/18 10:41 Prinivil PO 10 mg DAILY [facility] Administration Ondansetron HCl 4 mg 05/11/18 17:57 05/11/18 19:00 Zofran Injection IVPUSH 4 mg Q6H PRN Administration NAUSEA AND/OR VOMITING Pantoprazole Sodium 40 mg 05/12/18 10:00 05/26/18 10:40 Protonix Iv IVPUSH 40 mg DAILY [facility] Administration ASSESSMENT/PLAN: Patient is a 67 yo M with past medical history of Afib, hemorrhagic CVA, DM, presented s/p left frontal craniotomy and blood clot removal. #Neurology 1)s/p left frontal craniotomy and blood clot removal. - Daily sedation vacations to assess mental status - Keppra 500 mg for seizure prophylaxis. - Head of the bead 30 degrees. #Cardiology 1)Hypertension, controlled -Labetalol for elevated BP or HR PRN -Continue home medications -Strict BP control with systolic < 130 #Pulmonology 1)Acute Hypoxic Respiratory failure likely 2/2 pneumonia -Continue IV antibiotics -Intubated -Chest PT, pulmonary toilet -Continue albuterol and mucomyst -Patient unable to protect his airwar. Tracheostomy indicated as this is his 3rd intubation. #Nephrology 1)QI likely Pre-renal injury, improving - Kidney US showed no hydronephrosis or stones b/l - Urine lites support pre-renal injury. - Nephro (Dr. Davies) consulted. #Infectious disease 1)LLL Pneumonia likely 2/2 Aspiration -Sputum culture +MRSA, Klebsiella pneumoniae, Corynbacterium diphtheriae -ID (Dr. Dick) consulted. Recommendations appreciated. -Continue vancomycin and zosyn -MRSA Contact precautions #Endocrinology 1)DM -BGM ACHS -Insulin sliding scale implemented -will continue to monitor #FEN -Not on any standing fluids -Replete lytes PRN, routine bmp monitoring -Tube Feeds with glucerna via NG tube #Prophylaxis 1)DVT - Heparin 5000 units sq tid 2)GI - Protonix 40 mg daily #Disposition -full code -ICU for closer monitoring -Continued discussion for goals of care with sister (HCP) -Palliative care on board -Patient failed extubation and is now re-intubated. -He will need a tracheostomy moving forward given he has been intubated 3 times now. Visit type - Emergency Visit Emergency Visit: Yes ED Registration Date: 05/10/18 Care time: The patient presented to the Emergency Department on the above date and was hospitalized for further evaluation of their emergent condition. - New Patient This patient is new to me today: Yes Date on this admission: 05/26/18 - Critical Care Critical Care patient: Yes Total Critical Care Time (in minutes): 40 Critical Care Statement: The care of this patient involved high complexity decision making to prevent further life threatening deterioration of the patient 's condition and/or to evaluate & treat vital organ system(s) failure or risk of failure.
--- NOTE | 2018-05-26 18:02 | PN ---
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 QI 2. hypernatremia 3. hemorrhagic CVA 4. DM 5. a-fib 6. Acute Respiratory Failure 7. s/p Left frontal craniotomy, excision of thalamic hermorrhagic mass 8. hyperkalemia Current Medications Acetaminophen (Tylenol -) 650 mg PO Q6H PRN PRN Reason: FEVER Last Admin: 05/21/18 21:22 Dose: 650 mg Acetylcysteine (Mucomyst 20 Oral / Inh Use Only*) 200 mg NEB RQID [facility] Last Admin: 05/26/18 16:11 Dose: 200 mg Albuterol Sulfate (Ventolin 0.083% Nebulizer Soln -) 1 amp NEB RQID [facility] Last Admin: 05/26/18 16:11 Dose: 1 amp Amlodipine Besylate (Norvasc -) 10 mg PO DAILY [facility] Last Admin: 05/26/18 10:41 Dose: 10 mg Aspirin (Ecotrin -) 81 mg PO DAILY [facility] Last Admin: 05/26/18 10:41 Dose: 81 mg Atorvastatin Calcium (Lipitor -) 80 mg PO HS [facility] Last Admin: 05/25/18 21:15 Dose: 80 mg Docusate Sodium (Colace -) 100 mg PO TID [facility] Last Admin: 05/26/18 14:32 Dose: 100 mg Heparin Sodium (Porcine) (Heparin -) 5,000 unit SQ TID [facility] Last Admin: 05/26/18 14:32 Dose: 5,000 unit Propofol (Diprivan -) 1,000,000 mcg in 100 mls @ 2.507 mls/hr IVPB TITR [facility]; Protocol Last Admin: 05/26/18 00:24 Dose: 20 mcg/kg/min, 10.026 mls/hr Piperacillin Sod/Tazobactam (Sod 3.375 gm/ Dextrose) 50 mls @ 100 mls/hr IVPB Q8H-IV [facility]; Protocol Last Admin: 05/26/18 17:36 Dose: 100 mls/hr Vancomycin HCl (Vancomycin (Pre-Docked)) 1,000 mg in 250 mls @ 200 mls/hr IVPB Q24H [facility]; Protocol Last Admin: 05/26/18 10:38 Dose: 200 mls/hr Insulin Aspart (Novolog Vial Sliding Scale -) 1 vial SQ ACHS [facility]; Protocol Last Admin: 05/26/18 17:30 Dose: 8 units Insulin Detemir (Levemir Vial) 14 units SQ HS [facility] Last Admin: 05/26/18 00:31 Dose: 14 units Labetalol HCl 200 mg/ (Labetalol HCl 100 mg) 300 mg PO TID [facility] Last Admin: 05/26/18 14:32 Dose: 300 mg Levetiracetam (Keppra Injection -) 500 mg IVPB BID [facility] Last Admin: 05/26/18 10:41 Dose: 500 mg Lisinopril (Prinivil) 10 mg PO DAILY [facility] Last Admin: 05/26/18 10:41 Dose: 10 mg Ondansetron HCl (Zofran Injection) 4 mg IVPUSH Q6H PRN PRN Reason: NAUSEA AND/OR VOMITING Last Admin: 05/11/18 19:00 Dose: 4 mg Pantoprazole Sodium (Protonix Iv) 40 mg IVPUSH DAILY [facility] Last Admin: 05/26/18 10:40 Dose: 40 mg Last Vital Signs Temp Pulse Resp BP Pulse Ox 99.4 F 96 H 16 115/71 99 05/26/18 14:00 05/26/18 16:00 05/26/18 16:10 05/26/18 16:00 05/26/18 12:00 CBC, BMP 05/26/18 05:30 05/26/18 05:30 IMP hypernatremia resolved Plan agree with reducing free water via ngt
[2018-05-26] MEDS: ATORVASTATIN CA 80 MG TABLET (FP) PO SCH (22:01)
[2018-05-27] MEDS ORDERED: PIPERACILLIN/TAZOBACTAM 3.375 GM VIAL IVPB ONE ×3 (01:36→18:41)
[2018-05-27] MEDS ORDERED: DEXTROSE 5%-WATER - 50 ML IVPB ONE ×3 (01:36→18:41)
[2018-05-27] MEDS: PIPERACILLIN/TAZOB 3.375 GM 3.375 GM in DEXTROSE 5%-WATER - 50 ML IVPB SCH ×3 (01:37→18:45)
[2018-05-27 06:19] LABS: HEMATOCRIT 27.2 % (35.4-49); HEMOGLOBIN 8.8 GM/dL (11.7-16.9); MCH 27.4 pg (25.7-33.7); MCHC 32.2 g/dl (32.0-35.9); MEAN CELL VOLUME 84.9 fl (80-96); MEAN PLT VOLUME 11.7 fl (7.5-11.1); PLATELET COUNT 94 K/MM3 (134-434); RBC 3.21 M/mm3 (4.00-5.60); WHITE BLOOD COUNT 7.8 K/mm3 (4.0-10.0)
[2018-05-27 06:30] LABS: ANION GAP 7 MMOL/L (8-16); BLOOD UREA NITROGEN 63 mg/dL (7-18); CALCIUM 7.7 mg/dL (8.5-10.1); CHLORIDE 108 mmol/L (98-107); CO2 27 mmol/L (21-32); CREATININE 1.2 mg/dL (0.55-1.3); GLUCOSE,RANDOM 214 mg/dL (74-106); MAGNESIUM 2.8 mg/dL (1.8-2.4); POTASSIUM 4.8 mmol/L (3.5-5.1); SODIUM 142 mmol/L (136-145)
[2018-05-27] MEDS: HEPARIN NA (PORCINE) 5,000 UNITS/ML 1ML VIAL SQ SCH ×3 (06:52→21:54)
[2018-05-27] MEDS: DOCUSATE SODIUM 100 MG CAPSULE (FP) PO SCH ×3 (06:52→21:41)
[2018-05-27] MEDS: INSULIN SLIDING SCALE (NOVOLOG) 1 VIAL SQ SCH ×4 (06:52→21:59)
[2018-05-27] MEDS: LABETALOL HCL 200 MG, LABETALOL HCL 100 MG PO SCH ×3 (06:52→22:13)
[2018-05-27] MEDS: ACETYLCYSTEINE 20% 200MG/ML 4 ML VIAL *FOR ORAL / INH USE ONLY NEB SCH ×4 (07:30→20:20)
[2018-05-27] MEDS: ALBUTEROL SO4 0.083% IH SOL 2.5 MG/3 ML VIAL.NEB. NEB SCH ×4 (07:30→20:20)
--- NOTE | 2018-05-27 09:40 | PN ---
Progress Note (short form) - Note Progress Note: Pulm/CCM SUBJECTIVE: Patient seen and examined in the ICU. -stable, awaiting family re: trach OBJECTIVE: Vital Signs Temp 98.8 F 05/27/18 06:00 Pulse 88 05/27/18 08:47 Resp 16 05/27/18 08:47 BP 124/74 05/27/18 06:00 Pulse Ox 100 05/27/18 08:47 Intake & Output 05/26/18 05/26/18 05/27/18 11:59 23:59 11:59 Intake Total 2492.3 2783.4 1092 Output Total 1000 1200 800 Balance 1492.3 1583.4 292 Weight 77.2 kg 35.426 kg Intake: IV 70.3 143.4 DIPRIVAN - 1,000,000 mcg 143.4 In 100 ml @ 5 MCG/KG/MIN 2.507 mls/hr IVPB TITR [facility] Rx#:[id number] SALINE LOCK # 1 70.3 IVPB 450 100 Tube Feeding 672 840 392 Tube Irrigant 1300 1700 700 Output: Urine 1000 1200 800 Smith 1000 1200 800 Other: Voiding Method Indwelling Catheter Indwelling Catheter Bowel Movement Yes Yes # Bowel Movements 1 Body Mass Index (BMI) 25.1 Weight Measurement Method Built in Bedscale Built in Bedscale Active Medications Acetaminophen (Tylenol -) 650 mg PO Q6H PRN PRN Reason: FEVER Last Admin: 05/21/18 21:22 Dose: 650 mg Acetylcysteine (Mucomyst 20 Oral / Inh Use Only*) 200 mg NEB RQID [facility] Last Admin: 05/27/18 07:30 Dose: 200 mg Albuterol Sulfate (Ventolin 0.083% Nebulizer Soln -) 1 amp NEB RQID [facility] Last Admin: 05/27/18 07:30 Dose: 1 amp Amlodipine Besylate (Norvasc -) 10 mg PO DAILY [facility] Last Admin: 05/26/18 10:41 Dose: 10 mg Aspirin (Ecotrin -) 81 mg PO DAILY [facility] Last Admin: 05/26/18 10:41 Dose: 81 mg Atorvastatin Calcium (Lipitor -) 80 mg PO HS [facility] Last Admin: 05/26/18 22:01 Dose: 80 mg Docusate Sodium (Colace -) 100 mg PO TID [facility] Last Admin: 05/27/18 06:52 Dose: Not Given Heparin Sodium (Porcine) (Heparin -) 5,000 unit SQ TID [facility] Last Admin: 05/27/18 06:52 Dose: 5,000 unit Propofol (Diprivan -) 1,000,000 mcg in 100 mls @ 2.507 mls/hr IVPB TITR [facility]; Protocol Last Titration: 05/27/18 01:38 Dose: 25 mcg/kg/min, 12.533 mls/hr Piperacillin Sod/Tazobactam (Sod 3.375 gm/ Dextrose) 50 mls @ 100 mls/hr IVPB Q8H-IV [facility]; Protocol Last Admin: 05/27/18 01:37 Dose: 100 mls/hr Vancomycin HCl (Vancomycin (Pre-Docked)) 1,000 mg in 250 mls @ 200 mls/hr IVPB Q24H [facility]; Protocol Last Admin: 05/26/18 10:38 Dose: 200 mls/hr Insulin Aspart (Novolog Vial Sliding Scale -) 1 vial SQ ACHS [facility]; Protocol Last Admin: 05/27/18 06:52 Dose: 6 units Insulin Detemir (Levemir Vial) 14 units SQ HS [facility] Last Admin: 05/26/18 22:01 Dose: 14 units Labetalol HCl 200 mg/ (Labetalol HCl 100 mg) 300 mg PO TID [facility] Last Admin: 05/27/18 06:52 Dose: Not Given Levetiracetam (Keppra Injection -) 500 mg IVPB BID [facility] Last Admin: 05/26/18 22:01 Dose: 500 mg Lisinopril (Prinivil) 10 mg PO DAILY [facility] Last Admin: 05/26/18 10:41 Dose: 10 mg Ondansetron HCl (Zofran Injection) 4 mg IVPUSH Q6H PRN PRN Reason: NAUSEA AND/OR VOMITING Last Admin: 05/11/18 19:00 Dose: 4 mg Pantoprazole Sodium (Protonix Iv) 40 mg IVPUSH DAILY [facility] Last Admin: 05/26/18 10:40 Dose: 40 mg Gen: intubated, sedated Heart: RRR Lung: scattered rhonchi Abd: soft, nontender Ext: no edema MANAGER SALT: sedated Laboratory Results - last 24 hr 05/27/18 05/27/18 05:30 05:30 WBC 7.8 RBC 3.21 L Hgb 8.8 L Hct 27.2 L MCV 84.9 MCH 27.4 MCHC 32.2 RDW 14.0 Plt Count 94 L MPV 11.7 H Sodium 142 Potassium 4.8 Chloride 108 H Carbon Dioxide 27 Anion Gap 7 L BUN 63 H Creatinine 1.2 Creat Clearance w eGFR > 60 Random Glucose 214 H Calcium 7.7 L Phosphorus 3.0 Magnesium 2.8 H ASSESSMENT AND PLAN: 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 Acute Hypoxic Respiratory Failure Pneumonia Left Atelectasis Sepsis Atrial Fibrillation Acute Kidney Injury DM/Hyperglycemia - vent support, can do PS for exercise but needs fdc airway - will stop propofol and use prn sedation - continue antibiotics as per ID - chest PT, pulmonary toilet - continue albuterol/mucomyst - off decadron - antiepileptics per neuro - glucose control - DVT/GI prophylaxis - thoracic on board for trach on tuesday when family consents - continue ICU monitoring Bridget ACNP [id number] Critical care time spent in reviewing chart, evaluating patient and formulating plan 35 min
--- NOTE | 2018-05-27 09:50 | PN ---
Progress Note (short form) - Note Progress Note: Thoracic Surgery: Consult request noted. If family agrees, would do tracheostomy Tuesday at 2PM. Hold feeds Tuesday AM. Please obtain consent.
[2018-05-27] MEDS: ASPIRIN COATED 81 MG TABLET.EC PO SCH (10:25)
[2018-05-27] MEDS: levETIRAcetam 500 MG/5 ML INJECTION VIAL IVPB SCH ×2 (10:25→21:54)
[2018-05-27] MEDS: PANTOPRAZOLE SODIUM 40 MG VIAL IVPUSH SCH (10:25)
[2018-05-27] MEDS: amLODIPine BESYLATE 10 MG TABLET (FP) PO SCH (10:27)
[2018-05-27] MEDS: LISINOPRIL 10 MG TABLET (FP) PO SCH (10:27)
[2018-05-27] MEDS ORDERED: LABETALOL HCL 100 MG TABLET (FP) ONE ×2 (12:14→21:14)
[2018-05-27] MEDS ORDERED: LABETALOL HCL 200 MG TABLET (FP) ONE ×2 (12:14→21:14)
[2018-05-27] MEDS: VANCOMYCIN 1 GRAM (PRE-DOCKED) 1,000 MG/250 ML BAG IVPB SCH (12:18)
--- NOTE | 2018-05-27 12:37 | PN ---
Progress Note, Physician Chief Complaint: INTUBATED SEDATED EVENTS AND NOTES REVIEWED - Current Medication List Current Medications: Active Medications Acetaminophen (Tylenol -) 650 mg PO Q6H PRN PRN Reason: FEVER Last Admin: 05/21/18 21:22 Dose: 650 mg Acetylcysteine (Mucomyst 20 Oral / Inh Use Only*) 200 mg NEB RQID [facility] Last Admin: 05/27/18 11:30 Dose: 200 mg Albuterol Sulfate (Ventolin 0.083% Nebulizer Soln -) 1 amp NEB RQID [facility] Last Admin: 05/27/18 11:30 Dose: 1 amp Amlodipine Besylate (Norvasc -) 10 mg PO DAILY [facility] Last Admin: 05/27/18 10:27 Dose: 10 mg Aspirin (Ecotrin -) 81 mg PO DAILY [facility] Last Admin: 05/27/18 10:25 Dose: 81 mg Atorvastatin Calcium (Lipitor -) 80 mg PO HS [facility] Last Admin: 05/26/18 22:01 Dose: 80 mg Docusate Sodium (Colace -) 100 mg PO TID [facility] Last Admin: 05/27/18 06:52 Dose: Not Given Heparin Sodium (Porcine) (Heparin -) 5,000 unit SQ TID [facility] Last Admin: 05/27/18 06:52 Dose: 5,000 unit Piperacillin Sod/Tazobactam (Sod 3.375 gm/ Dextrose) 50 mls @ 100 mls/hr IVPB Q8H-IV [facility]; Protocol Last Admin: 05/27/18 10:25 Dose: 100 mls/hr Vancomycin HCl (Vancomycin (Pre-Docked)) 1,000 mg in 250 mls @ 200 mls/hr IVPB Q24H [facility]; Protocol Last Admin: 05/27/18 12:18 Dose: 200 mls/hr Insulin Aspart (Novolog Vial Sliding Scale -) 1 vial SQ ACHS [facility]; Protocol Last Admin: 05/27/18 12:22 Dose: 6 units Insulin Detemir (Levemir Vial) 14 units SQ HS [facility] Last Admin: 05/26/18 22:01 Dose: 14 units Labetalol HCl 200 mg/ (Labetalol HCl 100 mg) 300 mg PO TID [facility] Last Admin: 05/27/18 06:52 Dose: Not Given Levetiracetam (Keppra Injection -) 500 mg IVPB BID [facility] Last Admin: 05/27/18 10:25 Dose: 500 mg Lisinopril (Prinivil) 10 mg PO DAILY [facility] Last Admin: 05/27/18 10:27 Dose: 10 mg Ondansetron HCl (Zofran Injection) 4 mg IVPUSH Q6H PRN PRN Reason: NAUSEA AND/OR VOMITING Last Admin: 05/11/18 19:00 Dose: 4 mg Pantoprazole Sodium (Protonix Iv) 40 mg IVPUSH DAILY [facility] Last Admin: 05/27/18 10:25 Dose: 40 mg - Objective Vital Signs: Vital Signs Temperature 98.8 F 05/27/18 06:00 Pulse Rate 88 05/27/18 08:47 Respiratory Rate 16 05/27/18 11:50 Blood Pressure 124/74 05/27/18 06:00 O2 Sat by Pulse Oximetry (%) 100 05/27/18 08:47 Constitutional: Yes: Other HENT: Yes: Other (DRESSING CLEAN) Cardiovascular: Yes: Pulse Irregular Respiratory: Yes: Mechanically Ventilated Gastrointestinal: Yes: Soft Genitourinary: Yes: Smith Present Musculoskeletal: Yes: Muscle Weakness Wound/Incision: Yes: Dressing Dry and Intact Neurological: Yes: Unresponsive, Other Labs: CBC, BMP 05/27/18 05:30 05/27/18 05:30 INR, PTT INR 1.06 (0.83-1.09) 05/10/18 16:15 Problem List - Problems (1) Diabetes Code(s): E11.9 - TYPE 2 DIABETES MELLITUS WITHOUT COMPLICATIONS Qualifiers: Diabetes mellitus type: type 2 (2) Fall Code(s): W19.XXXA - UNSPECIFIED FALL, INITIAL ENCOUNTER Qualifiers: Encounter type: initial encounter Qualified Code(s): W19.XXXA - Unspecified fall, initial encounter (3) HTN (hypertension) Code(s): I10 - ESSENTIAL (PRIMARY) HYPERTENSION (4) Intracranial bleed Code(s): I62.9 - NONTRAUMATIC INTRACRANIAL HEMORRHAGE, UNSPECIFIED (5) Respiratory failure Code(s): J96.90 - RESPIRATORY FAILURE, UNSP, UNSP W HYPOXIA OR HYPERCAPNIA (6) S/P craniotomy Code(s): Z98.890 - OTHER SPECIFIED POSTPROCEDURAL STATES Assessment/Plan WEAN OFF VENT NEEDED DNR TRACHEOSTOMY ON HOLD FAMILY DECISION PAIN CONTROL MONITOR CARDIAC FUNCTION ADVANCED DIRECTIVE
--- NOTE | 2018-05-27 15:05 | PN ---
Progress Note (short form) - Note Progress Note: sedated intubated Vital Signs Period Temp Pulse Resp BP Sys/Goel Pulse Ox Last 24 Hr 98.8 F-99.2 F 82-99 16-22 111-130/60-75 98-100 cor-rrr llungs decreased bs at bases abd soft,nt ext no edema +ngt feedings CBC, BMP 05/27/18 05:30 05/27/18 05:30 Microbiology 05/25/18 06:50 Sputum - Endotrachea Suction/Ventilator Gram Stain - Final 05/25/18 06:50 Sputum - Endotrachea Suction/Ventilator Sputum Culture - Preliminary Corynebacterium Species 05/15/18 19:45 Blood - Peripheral Venous Blood Culture - Final NO GROWTH AFTER 5 DAYS INCUBATION 05/15/18 19:35 Blood - Peripheral Venous Blood Culture - Final NO GROWTH AFTER 5 DAYS INCUBATION 05/15/18 19:15 Urine - Urine Smith Urine Culture - Final Enterococcus Faecalis 05/15/18 19:15 Sputum - Endotrachea Suction/Ventilator Gram Stain - Final 05/15/18 19:15 Sputum - Endotrachea Suction/Ventilator Sputum Culture - Final Mr S Aureus Klebsiella Pneumoniae Diphtheroid/Corynebacterium 05/13/18 10:45 Blood - Peripheral Venous Blood Culture - Final NO GROWTH AFTER 5 DAYS INCUBATION 05/13/18 11:00 Blood - Peripheral Venous Blood Culture - Final NO GROWTH AFTER 5 DAYS INCUBATION 05/15/18 19:15 Urine For Antigen Detection Legionella Antigen - Final 05/15/18 19:15 Urine For Antigen Detection Streptococcus pneumoniae Antigen (M - Final 05/13/18 12:30 Urine - Urine Smith Urine Culture - Final NO GROWTH OBTAINED vanco trough 13.9 a/p respiratory failure pneumonia +pneumococcal antigen History of AVR s/p craniotomy 05/11 for hemorrhagic CVA continue vanco/zosyn
[2018-05-27] MEDS ORDERED: HEMOQUE TEST 1 EACH EACH ONE (17:09)
[2018-05-27] MEDS ORDERED: PT OWN MED DRAWER 7, Y5N ONE (21:15)
--- NOTE | 2018-05-27 21:52 | PN ---
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 s/p QI- resolving 2. s/p hypernatremia- 3. hemorrhagic CVA 4. DM 5. a-fib 6. Acute Respiratory Failure on vent 7. s/p Left frontal craniotomy, excision of thalamic hermorrhagic mass 8. hyperkalemia Current Medications Acetaminophen (Tylenol -) 650 mg PO Q6H PRN PRN Reason: FEVER Last Admin: 05/21/18 21:22 Dose: 650 mg Acetylcysteine (Mucomyst 20 Oral / Inh Use Only*) 200 mg NEB RQID [facility] Last Admin: 05/28/18 11:42 Dose: 200 mg Albuterol Sulfate (Ventolin 0.083% Nebulizer Soln -) 1 amp NEB RQID [facility] Last Admin: 05/28/18 11:42 Dose: 1 amp Amlodipine Besylate (Norvasc -) 10 mg PO DAILY [facility] Last Admin: 05/28/18 09:28 Dose: 10 mg Aspirin (Ecotrin -) 81 mg PO DAILY [facility] Last Admin: 05/28/18 09:28 Dose: 81 mg Atorvastatin Calcium (Lipitor -) 80 mg PO HS [facility] Last Admin: 05/27/18 21:54 Dose: 80 mg Docusate Sodium (Colace -) 100 mg PO TID [facility] Last Admin: 05/28/18 05:31 Dose: Not Given Heparin Sodium (Porcine) (Heparin -) 5,000 unit SQ TID [facility] Last Admin: 05/28/18 14:43 Dose: 5,000 unit Piperacillin Sod/Tazobactam (Sod 3.375 gm/ Dextrose) 50 mls @ 100 mls/hr IVPB Q8H-IV [facility]; Protocol Last Admin: 05/28/18 09:25 Dose: 100 mls/hr Vancomycin HCl (Vancomycin (Pre-Docked)) 1,000 mg in 250 mls @ 200 mls/hr IVPB Q24H [facility]; Protocol Last Admin: 05/28/18 12:39 Dose: 200 mls/hr Insulin Aspart (Novolog Vial Sliding Scale -) 1 vial SQ ACHS [facility]; Protocol Last Admin: 05/28/18 12:39 Dose: 8 units Insulin Detemir (Levemir Vial) 14 units SQ HS COUNTS [facility]CLUDE 234 BEDS AT THE [facility] Last Admin: 05/27/18 21:58 Dose: 14 units Labetalol HCl 200 mg/ (Labetalol HCl 100 mg) 300 mg PO TID COUNTS INCLUDE 234 BEDS AT THE [facility] Last Admin: 05/28/18 05:29 Dose: Not Given Levetiracetam (Keppra Injection -) 500 mg IVPB BID COUNTS INCLUDE 234 BEDS AT THE [facility] Last Admin: 05/28/18 09:28 Dose: 500 mg Lisinopril (Prinivil) 10 mg PO DAILY COUNTS INCLUDE 234 BEDS AT THE [facility] Last Admin: 05/28/18 09:27 Dose: 10 mg Ondansetron HCl (Zofran Injection) 4 mg IVPUSH Q6H PRN PRN Reason: NAUSEA AND/OR VOMITING Last Admin: 05/11/18 19:00 Dose: 4 mg Pantoprazole Sodium (Protonix Iv) 40 mg IVPUSH DAILY COUNTS INCLUDE 234 BEDS AT THE [facility] Last Admin: 05/28/18 09:28 Dose: 40 mg Last Vital Signs Temp Pulse Resp BP Pulse Ox 97.8 F 80 16 127/66 100 05/28/18 06:00 05/28/18 14:00 05/28/18 14:30 05/28/18 14:00 05/28/18 08:26 on vent unresponsive occasional spontaneous movts lue lungs vented heart s1s2 abd soft no guarding ext no edema labs reviewed CBC, BMP 05/27/18 05:30 05/27/18 05:30 CBC, BMP 05/26/18 05:30 05/26/18 05:30 IMP hypernatremia resolved prerenal azotemia pending tracheostomy Plan -labs ordered for am
[2018-05-27] MEDS: ATORVASTATIN CA 80 MG TABLET (FP) PO SCH (21:54)
[2018-05-27] MEDS: INSULIN (LEVEMIR) 100 UNITS/ML UNITS SQ SCH (21:58)
[2018-05-28] MEDS ORDERED: DEXTROSE 5%-WATER - 50 ML IVPB ONE ×3 (00:34→17:02)
[2018-05-28] MEDS ORDERED: PIPERACILLIN/TAZOBACTAM 3.375 GM VIAL IVPB ONE ×3 (00:34→17:02)
[2018-05-28] MEDS: PIPERACILLIN/TAZOB 3.375 GM 3.375 GM in DEXTROSE 5%-WATER - 50 ML IVPB SCH ×3 (02:00→17:22)
[2018-05-28] MEDS ORDERED: LABETALOL HCL 200 MG TABLET (FP) ONE ×3 (05:22→21:57)
[2018-05-28] MEDS ORDERED: LABETALOL HCL 100 MG TABLET (FP) ONE ×3 (05:23→21:57)
[2018-05-28] MEDS: LABETALOL HCL 200 MG, LABETALOL HCL 100 MG PO SCH ×3 (05:29→22:19)
[2018-05-28] MEDS: HEPARIN NA (PORCINE) 5,000 UNITS/ML 1ML VIAL SQ SCH ×3 (05:31→22:19)
[2018-05-28] MEDS: DOCUSATE SODIUM 100 MG CAPSULE (FP) PO SCH ×2 (05:31→15:08)
[2018-05-28] MEDS: INSULIN SLIDING SCALE (NOVOLOG) 1 VIAL SQ SCH ×4 (06:03→22:22)
[2018-05-28] MEDS: ACETYLCYSTEINE 20% 200MG/ML 4 ML VIAL *FOR ORAL / INH USE ONLY NEB SCH ×4 (07:07→19:00)
[2018-05-28] MEDS: ALBUTEROL SO4 0.083% IH SOL 2.5 MG/3 ML VIAL.NEB. NEB SCH ×4 (07:07→19:00)
[2018-05-28] MEDS: LISINOPRIL 10 MG TABLET (FP) PO SCH (09:27)
[2018-05-28] MEDS: PANTOPRAZOLE SODIUM 40 MG VIAL IVPUSH SCH (09:28)
[2018-05-28] MEDS: amLODIPine BESYLATE 10 MG TABLET (FP) PO SCH (09:28)
[2018-05-28] MEDS: levETIRAcetam 500 MG/5 ML INJECTION VIAL IVPB SCH ×2 (09:28→22:19)
[2018-05-28] MEDS: ASPIRIN COATED 81 MG TABLET.EC PO SCH (09:28)
--- NOTE | 2018-05-28 10:16 | PN ---
Progress Note (short form) - Note Progress Note: opens his eyes remains intubated trach planned for am Vital Signs Period Temp Pulse Resp BP Sys/Goel Pulse Ox Last 24 Hr 97.8 F-99.8 F 76-102 15-22 106-147/62-92 99-100 joão intact on scalp cor-rrr lungs decresed bs at bases abd soft,nt ext no edema CBC, BMP 05/27/18 05:30 05/27/18 05:30 Microbiology 05/25/18 06:50 Sputum - Endotrachea Suction/Ventilator Gram Stain - Final 05/25/18 06:50 Sputum - Endotrachea Suction/Ventilator Sputum Culture - Preliminary Corynebacterium Species 05/15/18 19:45 Blood - Peripheral Venous Blood Culture - Final NO GROWTH AFTER 5 DAYS INCUBATION 05/15/18 19:35 Blood - Peripheral Venous Blood Culture - Final NO GROWTH AFTER 5 DAYS INCUBATION 05/15/18 19:15 Urine - Urine Smith Urine Culture - Final Enterococcus Faecalis 05/15/18 19:15 Sputum - Endotrachea Suction/Ventilator Gram Stain - Final 05/15/18 19:15 Sputum - Endotrachea Suction/Ventilator Sputum Culture - Final Mr S Aureus Klebsiella Pneumoniae Diphtheroid/Corynebacterium 05/13/18 10:45 Blood - Peripheral Venous Blood Culture - Final NO GROWTH AFTER 5 DAYS INCUBATION 05/13/18 11:00 Blood - Peripheral Venous Blood Culture - Final NO GROWTH AFTER 5 DAYS INCUBATION 05/15/18 19:15 Urine For Antigen Detection Legionella Antigen - Final 05/15/18 19:15 Urine For Antigen Detection Streptococcus pneumoniae Antigen (M - Final 05/13/18 12:30 Urine - Urine Smith Urine Culture - Final NO GROWTH OBTAINED Current Medications Acetaminophen (Tylenol -) 650 mg PO Q6H PRN PRN Reason: FEVER Last Admin: 05/21/18 21:22 Dose: 650 mg Acetylcysteine (Mucomyst 20 Oral / Inh Use Only*) 200 mg NEB RQID [facility] Last Admin: 05/28/18 07:07 Dose: 200 mg Albuterol Sulfate (Ventolin 0.083% Nebulizer Soln -) 1 amp NEB RQID [facility] Last Admin: 05/28/18 07:07 Dose: 1 amp Amlodipine Besylate (Norvasc -) 10 mg PO DAILY [facility] Last Admin: 05/28/18 09:28 Dose: 10 mg Aspirin (Ecotrin -) 81 mg PO DAILY [facility] Last Admin: 05/28/18 09:28 Dose: 81 mg Atorvastatin Calcium (Lipitor -) 80 mg PO HS [facility] Last Admin: 05/27/18 21:54 Dose: 80 mg Docusate Sodium (Colace -) 100 mg PO TID [facility] Last Admin: 05/28/18 05:31 Dose: Not Given Heparin Sodium (Porcine) (Heparin -) 5,000 unit SQ TID [facility] Last Admin: 05/28/18 05:31 Dose: 5,000 unit Piperacillin Sod/Tazobactam (Sod 3.375 gm/ Dextrose) 50 mls @ 100 mls/hr IVPB Q8H-IV [facility]; Protocol Last Admin: 05/28/18 09:25 Dose: 100 mls/hr Vancomycin HCl (Vancomycin (Pre-Docked)) 1,000 mg in 250 mls @ 200 mls/hr IVPB Q24H [facility]; Protocol Last Admin: 05/27/18 12:18 Dose: 200 mls/hr Insulin Aspart (Novolog Vial Sliding Scale -) 1 vial SQ ACHS [facility]; Protocol Last Admin: 05/28/18 06:03 Dose: 6 units Insulin Detemir (Levemir Vial) 14 units SQ HS [facility] Last Admin: 05/27/18 21:58 Dose: 14 units Labetalol HCl 200 mg/ (Labetalol HCl 100 mg) 300 mg PO TID [facility] Last Admin: 05/28/18 05:29 Dose: Not Given Levetiracetam (Keppra Injection -) 500 mg IVPB BID [facility] Last Admin: 05/28/18 09:28 Dose: 500 mg Lisinopril (Prinivil) 10 mg PO DAILY [facility] Last Admin: 05/28/18 09:27 Dose: 10 mg Ondansetron HCl (Zofran Injection) 4 mg IVPUSH Q6H PRN PRN Reason: NAUSEA AND/OR VOMITING Last Admin: 05/11/18 19:00 Dose: 4 mg Pantoprazole Sodium (Protonix Iv) 40 mg IVPUSH DAILY [facility] Last Admin: 05/28/18 09:28 Dose: 40 mg vanco trough 13.9 a/p respiratory failure pneumonia +pneumococcal antigen/MRSA History of AVR s/p craniotomy 05/11 for hemorrhagic CVA continue yovanio/mario
--- NOTE | 2018-05-28 10:56 | PN ---
Progress Note, Physician Chief Complaint: STILL INTUBATED MULTIPLE ATTEMPTS TO EXTUBATE - Current Medication List Current Medications: Active Medications Acetaminophen (Tylenol -) 650 mg PO Q6H PRN PRN Reason: FEVER Last Admin: 05/21/18 21:22 Dose: 650 mg Acetylcysteine (Mucomyst 20 Oral / Inh Use Only*) 200 mg NEB RQID [facility] Last Admin: 05/28/18 07:07 Dose: 200 mg Albuterol Sulfate (Ventolin 0.083% Nebulizer Soln -) 1 amp NEB RQID [facility] Last Admin: 05/28/18 07:07 Dose: 1 amp Amlodipine Besylate (Norvasc -) 10 mg PO DAILY [facility] Last Admin: 05/28/18 09:28 Dose: 10 mg Aspirin (Ecotrin -) 81 mg PO DAILY [facility] Last Admin: 05/28/18 09:28 Dose: 81 mg Atorvastatin Calcium (Lipitor -) 80 mg PO HS [facility] Last Admin: 05/27/18 21:54 Dose: 80 mg Docusate Sodium (Colace -) 100 mg PO TID [facility] Last Admin: 05/28/18 05:31 Dose: Not Given Heparin Sodium (Porcine) (Heparin -) 5,000 unit SQ TID [facility] Last Admin: 05/28/18 05:31 Dose: 5,000 unit Piperacillin Sod/Tazobactam (Sod 3.375 gm/ Dextrose) 50 mls @ 100 mls/hr IVPB Q8H-IV [facility]; Protocol Last Admin: 05/28/18 09:25 Dose: 100 mls/hr Vancomycin HCl (Vancomycin (Pre-Docked)) 1,000 mg in 250 mls @ 200 mls/hr IVPB Q24H [facility]; Protocol Last Admin: 05/27/18 12:18 Dose: 200 mls/hr Insulin Aspart (Novolog Vial Sliding Scale -) 1 vial SQ ACHS [facility]; Protocol Last Admin: 05/28/18 06:03 Dose: 6 units Insulin Detemir (Levemir Vial) 14 units SQ [facility] Last Admin: 05/27/18 21:58 Dose: 14 units Labetalol HCl 200 mg/ (Labetalol HCl 100 mg) 300 mg PO TID [facility] Last Admin: 05/28/18 05:29 Dose: Not Given Levetiracetam (Keppra Injection -) 500 mg IVPB BID [facility] Last Admin: 05/28/18 09:28 Dose: 500 mg Lisinopril (Prinivil) 10 mg PO DAILY [facility] Last Admin: 05/28/18 09:27 Dose: 10 mg Ondansetron HCl (Zofran Injection) 4 mg IVPUSH Q6H PRN PRN Reason: NAUSEA AND/OR VOMITING Last Admin: 05/11/18 19:00 Dose: 4 mg Pantoprazole Sodium (Protonix Iv) 40 mg IVPUSH DAILY [facility] Last Admin: 05/28/18 09:28 Dose: 40 mg - Objective Vital Signs: Vital Signs Temperature 97.8 F 05/28/18 06:00 Pulse Rate 76 05/28/18 08:26 Respiratory Rate 19 05/28/18 08:26 Blood Pressure 117/63 05/28/18 06:00 O2 Sat by Pulse Oximetry (%) 100 05/28/18 08:26 Constitutional: Yes: No Distress HENT: Yes: Other (LEFT WOUND PARIETAL CLEAN GARRETT) Cardiovascular: Yes: Regular Rate and Rhythm Respiratory: Yes: Mechanically Ventilated Gastrointestinal: Yes: Soft Genitourinary: Yes: Smith Present Musculoskeletal: Yes: Muscle Weakness Edema: No Integumentary: Yes: Other Wound/Incision: Yes: Open to air Neurological: Yes: Unresponsive Labs: CBC, BMP 05/27/18 05:30 05/27/18 05:30 INR, PTT INR 1.06 (0.83-1.09) 05/10/18 16:15 Problem List - Problems (1) Diabetes Code(s): E11.9 - TYPE 2 DIABETES MELLITUS WITHOUT COMPLICATIONS Qualifiers: Diabetes mellitus type: type 2 (2) Fall Code(s): W19.XXXA - UNSPECIFIED FALL, INITIAL ENCOUNTER Qualifiers: Encounter type: initial encounter Qualified Code(s): W19.XXXA - Unspecified fall, initial encounter (3) HTN (hypertension) Code(s): I10 - ESSENTIAL (PRIMARY) HYPERTENSION (4) Intracranial bleed Code(s): I62.9 - NONTRAUMATIC INTRACRANIAL HEMORRHAGE, UNSPECIFIED (5) Respiratory failure Code(s): J96.90 - RESPIRATORY FAILURE, UNSP, UNSP W HYPOXIA OR HYPERCAPNIA (6) S/P craniotomy Code(s): Z98.890 - OTHER SPECIFIED POSTPROCEDURAL STATES Assessment/Plan WEAN OFF VENT NEEDED DNR TRACHEOSTOMY ON HOLD FAMILY DECISION PAIN CONTROL MONITOR CARDIAC FUNCTION ADVANCED DIRECTIVE
--- NOTE | 2018-05-28 11:58 | PN ---
Progress Note (short form) - Note Progress Note: Pulm/CCM SUBJECTIVE: Patient seen and examined in the ICU. -still no family yesterday -stable, awaiting family re: trach OBJECTIVE: Vital Signs Temp 97.8 F 05/28/18 06:00 Pulse 76 05/28/18 08:26 Resp 18 05/28/18 11:10 BP 117/63 05/28/18 06:00 Pulse Ox 100 05/28/18 08:26 Intake & Output 05/27/18 05/27/18 05/28/18 11:59 23:59 11:59 Intake Total 1092 1327 Output Total 800 1200 500 Balance 292 -1200 827 Weight 35.426 kg 78.471 kg Intake: IVPB 150 Tube Feeding 392 676 Tube Irrigant 700 501 Output: Urine 800 1200 500 Smith 800 1200 500 Other: Voiding Method Indwelling Catheter Indwelling Catheter Indwelling Catheter Bowel Movement Yes # Bowel Movements 1 [facility] Active Medications Acetaminophen (Tylenol -) 650 mg PO Q6H PRN PRN Reason: FEVER Last Admin: 05/21/18 21:22 Dose: 650 mg Acetylcysteine (Mucomyst 20 Oral / Inh Use Only*) 200 mg NEB RQID [facility] Last Admin: 05/28/18 11:42 Dose: 200 mg Albuterol Sulfate (Ventolin 0.083% Nebulizer Soln -) 1 amp NEB RQID [facility] Last Admin: 05/28/18 11:42 Dose: 1 amp Amlodipine Besylate (Norvasc -) 10 mg PO DAILY [facility] Last Admin: 05/28/18 09:28 Dose: 10 mg Aspirin (Ecotrin -) 81 mg PO DAILY [facility] Last Admin: 05/28/18 09:28 Dose: 81 mg Atorvastatin Calcium (Lipitor -) 80 mg PO HS [facility] Last Admin: 05/27/18 21:54 Dose: 80 mg Docusate Sodium (Colace -) 100 mg PO TID [facility] Last Admin: 05/28/18 05:31 Dose: Not Given Heparin Sodium (Porcine) (Heparin -) 5,000 unit SQ TID [facility] Last Admin: 05/28/18 05:31 Dose: 5,000 unit Piperacillin Sod/Tazobactam (Sod 3.375 gm/ Dextrose) 50 mls @ 100 mls/hr IVPB Q8H-IV [facility]; Protocol Last Admin: 05/28/18 09:25 Dose: 100 mls/hr Vancomycin HCl (Vancomycin (Pre-Docked)) 1,000 mg in 250 mls @ 200 mls/hr IVPB Q24H [facility]; Protocol Last Admin: 05/27/18 12:18 Dose: 200 mls/hr Insulin Aspart (Novolog Vial Sliding Scale -) 1 vial SQ ACHS [facility]; Protocol Last Admin: 05/28/18 06:03 Dose: 6 units Insulin Detemir (Levemir Vial) 14 units SQ HS [facility] Last Admin: 05/27/18 21:58 Dose: 14 units Labetalol HCl 200 mg/ (Labetalol HCl 100 mg) 300 mg PO TID [facility] Last Admin: 05/28/18 05:29 Dose: Not Given Levetiracetam (Keppra Injection -) 500 mg IVPB BID [facility] Last Admin: 05/28/18 09:28 Dose: 500 mg Lisinopril (Prinivil) 10 mg PO DAILY [facility] Last Admin: 05/28/18 09:27 Dose: 10 mg Ondansetron HCl (Zofran Injection) 4 mg IVPUSH Q6H PRN PRN Reason: NAUSEA AND/OR VOMITING Last Admin: 05/11/18 19:00 Dose: 4 mg Pantoprazole Sodium (Protonix Iv) 40 mg IVPUSH DAILY [facility] Last Admin: 05/28/18 09:28 Dose: 40 mg Gen: intubated, lightly sedated, Heart: RRR Lung: scattered rhonchi, good movement Abd: soft, nontender Ext: no edema 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, SWAIN Lab holiday today, stable Laboratory Results - last 24 hr 05/27/18 05/27/18 05/27/18 10:30 12:21 21:51 POC Glucometer [id number] 203.60474 Vancomycin Pre-Dose 13.9 L Microbiology 05/25/18 06:50 Sputum - Endotrachea Suction/Ventilator Gram Stain - Final 05/25/18 06:50 Sputum - Endotrachea Suction/Ventilator Sputum Culture - Preliminary Corynebacterium Species 05/15/18 19:45 Blood - Peripheral Venous Blood Culture - Final NO GROWTH AFTER 5 DAYS INCUBATION 05/15/18 19:35 Blood - Peripheral Venous Blood Culture - Final NO GROWTH AFTER 5 DAYS INCUBATION 05/15/18 19:15 Urine - Urine Smith Urine Culture - Final Enterococcus Faecalis 05/15/18 19:15 Sputum - Endotrachea Suction/Ventilator Gram Stain - Final 05/15/18 19:15 Sputum - Endotrachea Suction/Ventilator Sputum Culture - Final S Aureus Klebsiella Pneumoniae Diphtheroid/Corynebacterium 05/13/18 10:45 Blood - Peripheral Venous Blood Culture - Final NO GROWTH AFTER 5 DAYS INCUBATION 05/13/18 11:00 Blood - Peripheral Venous Blood Culture - Final NO GROWTH AFTER 5 DAYS INCUBATION 05/15/18 19:15 Urine For Antigen Detection Legionella Antigen - Final 05/15/18 19:15 Urine For Antigen Detection Streptococcus pneumoniae Antigen (M - Final 05/13/18 12:30 Urine - Urine Smith Urine Culture - Final NO GROWTH OBTAINED ASSESSMENT AND PLAN: 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 Acute Hypoxic Respiratory Failure Pneumonia Left Atelectasis Sepsis Atrial Fibrillation Acute Kidney Injury DM/Hyperglycemia - vent support, can do PS for exercise but needs senior care airway, can likely go straight to trach collar - prn sedation - continue antibiotics as per ID - chest PT, pulmonary toilet - continue albuterol/mucomyst - off decadron - antiepileptics per neuro - glucose control - DVT/GI prophylaxis - thoracic on board for trach on tuesday when family consents, may need two physician if family still absent - continue ICU monitoring Bridget [facility] [id number] Critical care time spent in reviewing chart, evaluating patient and formulating plan 35 min Critical Care Total Critical Care Time (in minutes): 35 Critical Care Statement: The care of this patient involved high complexity decision making to prevent further life threatening deterioration of the patient 's condition and/or to evaluate & treat vital organ system(s) failure or risk of failure.
--- NOTE | 2018-05-28 12:05 | CONSULT ---
Consult - text type - Consultation Consultation Note: Thoracic Surgery Consult: 67M with CVA, craniotomy, multiple intubation/extubation. PE: now intubated, HD stable, minimally responsive. Not anticoagulated. Good candidate for tracheostomy due to inability to clear secretions. He will need a 2 attending consent or family to sign for him. Please make npo for possible procedure at 2PM. I have spent 20 minutes in this consultation including reviewing history, physical exam (intubated, craniotomy scar, minimally responsive), and coordination of care with the ICU team.
[2018-05-28] MEDS: VANCOMYCIN 1 GRAM (PRE-DOCKED) 1,000 MG/250 ML BAG IVPB SCH (12:39)
--- NOTE | 2018-05-28 14:53 | PN ---
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 QI 2. hypernatremia 3. hemorrhagic CVA 4. DM 5. a-fib 6. Acute Respiratory Failure 7. s/p Left frontal craniotomy, excision of thalamic hermorrhagic mass 8. hyperkalemia Last Vital Signs Temp Pulse Resp BP Pulse Ox 99.8 F H 85 16 133/73 99 05/27/18 14:00 05/27/18 21:25 05/27/18 21:25 05/27/18 18:00 05/27/18 21:25 on vent unresponsive Lungs vented Heart reg Abd soft n CBC, BMP 05/27/18 05:30 05/27/18 05:30 CBC, BMP 05/26/18 05:30 05/26/18 05:30 IMP s/p hypernatremia resolved prerenal azotemia pending tracheostomy Plan -no new interventions
[2018-05-28] MEDS: ATORVASTATIN CA 80 MG TABLET (FP) PO SCH (22:19)
[2018-05-28] MEDS: INSULIN (LEVEMIR) 100 UNITS/ML UNITS SQ SCH (22:21)
[2018-05-28] MEDS: DOCUSATE NA 100 MG/10 ML UNIT-DOSE CUPS PO SCH (22:24)
[2018-05-29] MEDS ORDERED: PIPERACILLIN/TAZOBACTAM 3.375 GM VIAL IVPB ONE ×2 (01:17→10:28)
[2018-05-29] MEDS ORDERED: DEXTROSE 5%-WATER - 50 ML IVPB ONE ×2 (01:18→10:28)
[2018-05-29] MEDS: PIPERACILLIN/TAZOB 3.375 GM 3.375 GM in DEXTROSE 5%-WATER - 50 ML IVPB SCH ×2 (01:34→10:52)
[2018-05-29] MEDS: PROPOFOL 1,000,000 MCG/100 ML VIAL IVPB SCH (03:00)
--- NOTE | 2018-05-29 03:37 | PROC ---
Intubation - Intubation Reason for Intubation: Other (Cuff leak ) Time of Intubation: 03:30 (ET Tube replacement with bougie) Intubation Method: orotracheal Tube Size (cm): 8.0 Tube position @ lip (cm): 22 Tube position confirmed by: Direct visualization, CO2 detector, Chest x-ray, Breath sounds Breath Sounds after Intubation: equal Post Intubation Xray: Yes
[2018-05-29] MEDS ORDERED: LABETALOL HCL 200 MG TABLET (FP) ONE ×2 (06:13→21:37)
[2018-05-29] MEDS ORDERED: LABETALOL HCL 100 MG TABLET (FP) ONE ×2 (06:14→21:38)
[2018-05-29 06:15] LABS: HEMATOCRIT 27.3 % (35.4-49); HEMOGLOBIN 8.7 GM/dL (11.7-16.9); MCH 27.2 pg (25.7-33.7); MCHC 31.8 g/dl (32.0-35.9); MEAN CELL VOLUME 85.6 fl (80-96); MEAN PLT VOLUME 11.4 fl (7.5-11.1); PLATELET COUNT 93 K/MM3 (134-434); RBC 3.19 M/mm3 (4.00-5.60); RDW 14.1 % (11.9-15.9); WHITE BLOOD COUNT 5.5 K/mm3 (4.0-10.0)
[2018-05-29] MEDS: DOCUSATE NA 100 MG/10 ML UNIT-DOSE CUPS PO SCH ×3 (06:15→21:42)
[2018-05-29] MEDS: HEPARIN NA (PORCINE) 5,000 UNITS/ML 1ML VIAL SQ SCH ×3 (06:15→21:42)
[2018-05-29] MEDS: LABETALOL HCL 200 MG, LABETALOL HCL 100 MG PO SCH ×3 (06:15→21:41)
[2018-05-29] MEDS: INSULIN SLIDING SCALE (NOVOLOG) 1 VIAL SQ SCH ×4 (06:16→22:48)
[2018-05-29 07:04] LABS: ARTERIAL BLD GAS O2 SATURATION 96.7 % (90-98.9); ARTERIAL BLOOD GAS PCO2 42.6 mmHg (35-45); ARTERIAL BLOOD GAS PO2 88.8 mmHg (80-100); ARTERIAL BLOOD GAS pH 7.45 (7.35-7.45)
[2018-05-29] MEDS: ALBUTEROL SO4 0.083% IH SOL 2.5 MG/3 ML VIAL.NEB. NEB SCH (07:08)
[2018-05-29] MEDS: ACETYLCYSTEINE 20% 200MG/ML 4 ML VIAL *FOR ORAL / INH USE ONLY NEB SCH ×3 (07:08→14:15)
[2018-05-29 07:16] LABS: ALBUMIN 1.8 g/dl (3.4-5.0); ALK PHOS 134 U/L (45-117); ANION GAP 6 MMOL/L (8-16); BILIRUBIN,TOTAL 0.5 mg/dL (0.2-1); BLOOD UREA NITROGEN 47 mg/dL (7-18); CALCIUM 8.2 mg/dL (8.5-10.1); CHLORIDE 110 mmol/L (98-107); CO2 30 mmol/L (21-32); CREATININE 0.9 mg/dL (0.55-1.3); GLUCOSE,RANDOM 139 mg/dL (74-106); MAGNESIUM 2.8 mg/dL (1.8-2.4); PHOSPHOROUS 3.1 mg/dL (2.5-4.9); POTASSIUM 4.6 mmol/L (3.5-5.1); SGOT/AST 26 U/L (15-37); SGPT/ALT 36 U/L (13-61); SODIUM 146 mmol/L (136-145); TOT PROT 5.2 g/dl (6.4-8.2)
[2018-05-29] MEDS: ASPIRIN COATED 81 MG TABLET.EC PO SCH (10:33)
[2018-05-29] MEDS: amLODIPine BESYLATE 10 MG TABLET (FP) PO SCH (10:33)
[2018-05-29] MEDS: LISINOPRIL 10 MG TABLET (FP) PO SCH (10:33)
[2018-05-29] MEDS: PANTOPRAZOLE SODIUM 40 MG VIAL IVPUSH SCH (10:52)
[2018-05-29] MEDS: levETIRAcetam 500 MG/5 ML INJECTION VIAL IVPB SCH ×2 (10:54→21:43)
[2018-05-29] MEDS: VANCOMYCIN 1 GRAM (PRE-DOCKED) 1,000 MG/250 ML BAG IVPB SCH (10:56)
[2018-05-29] MEDS ORDERED: ROCURONIUM BROMIDE 50 MG/5 ML VIAL IVPUSH ONE (11:51)
--- NOTE | 2018-05-29 12:10 | PN ---
Progress Note, Physician Chief Complaint: patient intubated and sedated propofols/p craniotomy to get tracheostomy today on iv abx - Current Medication List Current Medications: Active Medications Acetaminophen (Tylenol -) 650 mg PO Q6H PRN PRN Reason: FEVER Last Admin: 05/21/18 21:22 Dose: 650 mg Acetylcysteine (Mucomyst 20 Oral / Inh Use Only*) 200 mg NEB RQID [facility] Last Admin: 05/29/18 07:08 Dose: 200 mg Amlodipine Besylate (Norvasc -) 10 mg PO DAILY [facility] Last Admin: 05/29/18 10:33 Dose: Not Given Aspirin (Ecotrin -) 81 mg PO DAILY [facility] Last Admin: 05/29/18 10:33 Dose: Not Given Atorvastatin Calcium (Lipitor -) 80 mg PO HS [facility] Last Admin: 05/28/18 22:19 Dose: 80 mg Docusate Sodium (Colace Liquid -) 100 mg PO TID [facility] Last Admin: 05/29/18 06:15 Dose: 100 mg Heparin Sodium (Porcine) (Heparin -) 5,000 unit SQ TID [facility] Last Admin: 05/29/18 06:15 Dose: 5,000 unit Vancomycin HCl (Vancomycin (Pre-Docked)) 1,000 mg in 250 mls @ 200 mls/hr IVPB Q24H [facility]; Protocol Last Admin: 05/29/18 10:56 Dose: 200 mls/hr Propofol (Diprivan -) 1,000,000 mcg in 100 mls @ 0.942 mls/hr IVPB TITR [facility]; Protocol Last Titration: 05/29/18 03:30 Dose: 5 mcg/kg/min, 2.354 mls/hr Insulin Aspart (Novolog Vial Sliding Scale -) 1 vial SQ ACHS [facility]; Protocol Last Admin: 05/29/18 11:44 Dose: 2 units Insulin Detemir (Levemir Vial) 14 units SQ HS [facility] Last Admin: 05/28/18 22:21 Dose: 14 units Labetalol HCl 200 mg/ (Labetalol HCl 100 mg) 300 mg PO TID [facility] Last Admin: 05/29/18 06:15 Dose: 300 mg Levetiracetam (Keppra Injection -) 500 mg IVPB BID [facility] Last Admin: 05/29/18 10:54 Dose: 500 mg Lisinopril (Prinivil) 10 mg PO DAILY [facility] Last Admin: 05/29/18 10:33 Dose: Not Given Midazolam HCl (Versed -) 5 mg IVPUSH ONCE ONE Stop: 05/29/18 13:31 Ondansetron HCl (Zofran Injection) 4 mg IVPUSH Q6H PRN PRN Reason: NAUSEA AND/OR VOMITING Last Admin: 05/11/18 19:00 Dose: 4 mg Pantoprazole Sodium (Protonix Iv) 40 mg IVPUSH DAILY [facility] Last Admin: 05/29/18 10:52 Dose: 40 mg - Objective Vital Signs: Vital Signs Temperature 98.6 F 05/29/18 06:00 Pulse Rate 92 H 05/29/18 08:00 Respiratory Rate 20 05/29/18 11:15 Blood Pressure 121/67 05/29/18 08:00 O2 Sat by Pulse Oximetry (%) 99 05/29/18 10:00 Constitutional: Yes: Calm HENT: Yes: Other (left parietal joão clean) Cardiovascular: Yes: Regular Rate and Rhythm, S1, S2 Respiratory: Yes: Mechanically Ventilated Gastrointestinal: Yes: Normal Bowel Sounds, Soft Genitourinary: Yes: Smith Present Labs: CBC, BMP 05/29/18 05:30 05/29/18 05:30 INR, PTT INR 1.06 (0.83-1.09) 05/10/18 16:15 Problem List - Problems (1) S/P craniotomy Assessment/Plan: on keppra for seizure s/p removal of thalamic mass Code(s): Z98.890 - OTHER SPECIFIED POSTPROCEDURAL STATES (2) Hypernatremia Assessment/Plan: sodium is 146 will monitor Code(s): E87.0 - HYPEROSMOLALITY AND HYPERNATREMIA (3) Respiratory failure Assessment/Plan: failed multipel events at extubation getting trach today Code(s): J96.90 - RESPIRATORY FAILURE, UNSP, UNSP W HYPOXIA OR HYPERCAPNIA (4) Diabetes Assessment/Plan: seen by myke cloud and sliding scale Code(s): E11.9 - TYPE 2 DIABETES MELLITUS WITHOUT COMPLICATIONS Qualifiers: Diabetes mellitus type: type 2 (5) HTN (hypertension) Assessment/Plan: labetolol,norvasc,lisinopril Code(s): I10 - ESSENTIAL (PRIMARY) HYPERTENSION (6) Pneumonia Assessment/Plan: Microbiology 05/15/18 19:15 Sputum - Endotrachea Suction/Ventilator Gram Stain - Final 05/15/18 19:15 Sputum - Endotrachea Suction/Ventilator Sputum Culture - Final S Aureus Klebsiella Pneumoniae Diphtheroid/Corynebacterium MRSA contact precautions,isolation yovanio and mario Code(s): J18.9 - PNEUMONIA, UNSPECIFIED ORGANISM Assessment/Plan cva s/p craniootomy failed mutiple events at extubation trach today
--- NOTE | 2018-05-29 12:24 | PN ---
Progress Note, Physician History of Present Illness: Poorly responsive on ventilator Afebrile WBC WNL +thrombocytopenia Sputum c/s mixed, including MRSA Urine pneumococcal ag + Azotemia improved - Current Medication List Current Medications: Active Medications Acetaminophen (Tylenol -) 650 mg PO Q6H PRN PRN Reason: FEVER Last Admin: 05/21/18 21:22 Dose: 650 mg Acetylcysteine (Mucomyst 20 Oral / Inh Use Only*) 200 mg NEB RQID [facility] Last Admin: 05/29/18 07:08 Dose: 200 mg Amlodipine Besylate (Norvasc -) 10 mg PO DAILY [facility] Last Admin: 05/29/18 10:33 Dose: Not Given Aspirin (Ecotrin -) 81 mg PO DAILY [facility] Last Admin: 05/29/18 10:33 Dose: Not Given Atorvastatin Calcium (Lipitor -) 80 mg PO HS [facility] Last Admin: 05/28/18 22:19 Dose: 80 mg Docusate Sodium (Colace Liquid -) 100 mg PO TID [facility] Last Admin: 05/29/18 06:15 Dose: 100 mg Heparin Sodium (Porcine) (Heparin -) 5,000 unit SQ TID [facility] Last Admin: 05/29/18 06:15 Dose: 5,000 unit Vancomycin HCl (Vancomycin (Pre-Docked)) 1,000 mg in 250 mls @ 200 mls/hr IVPB Q24H [facility]; Protocol Last Admin: 05/29/18 10:56 Dose: 200 mls/hr Propofol (Diprivan -) 1,000,000 mcg in 100 mls @ 0.942 mls/hr IVPB TITR [facility]; Protocol Last Titration: 05/29/18 03:30 Dose: 5 mcg/kg/min, 2.354 mls/hr Insulin Aspart (Novolog Vial Sliding Scale -) 1 vial SQ ACHS [facility]; Protocol Last Admin: 05/29/18 11:44 Dose: 2 units Insulin Detemir (Levemir Vial) 14 units SQ HS [facility] Last Admin: 05/28/18 22:21 Dose: 14 units Labetalol HCl 200 mg/ (Labetalol HCl 100 mg) 300 mg PO TID [facility] Last Admin: 05/29/18 06:15 Dose: 300 mg Levetiracetam (Keppra Injection -) 500 mg IVPB BID [facility] Last Admin: 05/29/18 10:54 Dose: 500 mg Lisinopril (Prinivil) 10 mg PO DAILY [facility] Last Admin: 05/29/18 10:33 Dose: Not Given Midazolam HCl (Versed -) 5 mg IVPUSH ONCE ONE Stop: 05/29/18 13:31 Ondansetron HCl (Zofran Injection) 4 mg IVPUSH Q6H PRN PRN Reason: NAUSEA AND/OR VOMITING Last Admin: 05/11/18 19:00 Dose: 4 mg Pantoprazole Sodium (Protonix Iv) 40 mg IVPUSH DAILY [facility] Last Admin: 05/29/18 10:52 Dose: 40 mg - Objective Vital Signs: Vital Signs Temperature 98.6 F 05/29/18 06:00 Pulse Rate 92 H 05/29/18 08:00 Respiratory Rate 20 05/29/18 11:15 Blood Pressure 121/67 05/29/18 08:00 O2 Sat by Pulse Oximetry (%) 99 05/29/18 10:00 Constitutional: Yes: No Distress Eyes: Yes: Conjunctiva Clear HENT: Yes: Other (Craniotomy wound healed) Cardiovascular: Yes: Regular Rate and Rhythm, S1, S2 Respiratory: Yes: Mechanically Ventilated Gastrointestinal: Yes: Normal Bowel Sounds, Soft. No: Tenderness Edema: Yes Labs: CBC, BMP 05/29/18 05:30 05/29/18 05:30 INR, PTT INR 1.06 (0.83-1.09) 05/10/18 16:15 Assessment/Plan LLL pneumonia + sputum c/s MRSA/ mixed + pneumococcal ag Respiratory failure S/P craniotomy S/A AVR Azotemia improved Uncontrolled DM Continue zosyn/ vancomycin additional 24hr For tracheostomy today Contact precautions MRSA
[2018-05-29] MEDS ORDERED: MIDAZOLAM HCL 5 MG/1 ML Single Dose Vial ONE (12:29)
[2018-05-29] MEDS ORDERED: RAPID SEQUENCE INTUBATION KIT NR ONE (12:30)
--- NOTE | 2018-05-29 12:47 | PN ---
Teaching Attending Note Name of Resident: Norma Madden ATTENDING PHYSICIAN STATEMENT I saw and evaluated the patient. I reviewed the resident's note and discussed the case with the resident. I agree with the resident's findings and plan as documented. SUBJECTIVE: Patient seen and examined in the ICU. Remains intubated, sedated. No overall change in overall condition. Noted ETT needed to be changed. OBJECTIVE: Intake & Output 05/26/18 05/27/18 05/28/18 05/29/18 23:59 23:59 23:59 23:59 Intake Total 5275.7 1092 2385 257.5 Output Total 2200 2000 2100 800 Balance 3075.7 -908 285 -542.5 Weight 170 lb 3.15 oz 78 lb 1.6 oz 173 lb 173 lb 5 oz Last Vital Signs Temp Pulse Resp BP Pulse Ox 98.6 F 92 H 20 121/67 99 05/29/18 06:00 05/29/18 08:00 05/29/18 11:15 05/29/18 08:00 05/29/18 10:00 Active Medications Acetaminophen (Tylenol -) 650 mg PO Q6H PRN PRN Reason: FEVER Last Admin: 05/21/18 21:22 Dose: 650 mg Acetylcysteine (Mucomyst 20 Oral / Inh Use Only*) 200 mg NEB RQID [facility] Last Admin: 05/29/18 07:08 Dose: 200 mg Amlodipine Besylate (Norvasc -) 10 mg PO DAILY [facility] Last Admin: 05/29/18 10:33 Dose: Not Given Aspirin (Ecotrin -) 81 mg PO DAILY [facility] Last Admin: 05/29/18 10:33 Dose: Not Given Atorvastatin Calcium (Lipitor -) 80 mg PO HS [facility] Last Admin: 05/28/18 22:19 Dose: 80 mg Docusate Sodium (Colace Liquid -) 100 mg PO TID [facility] Last Admin: 05/29/18 06:15 Dose: 100 mg Heparin Sodium (Porcine) (Heparin -) 5,000 unit SQ TID [facility] Last Admin: 05/29/18 06:15 Dose: 5,000 unit Vancomycin HCl (Vancomycin (Pre-Docked)) 1,000 mg in 250 mls @ 200 mls/hr IVPB Q24H [facility]; Protocol Last Admin: 05/29/18 10:56 Dose: 200 mls/hr Propofol (Diprivan -) 1,000,000 mcg in 100 mls @ 0.942 mls/hr IVPB TITR [facility]; Protocol Last Titration: 05/29/18 03:30 Dose: 5 mcg/kg/min, 2.354 mls/hr Insulin Aspart (Novolog Vial Sliding Scale -) 1 vial SQ ACHS [facility]; Protocol Last Admin: 05/29/18 11:44 Dose: 2 units Insulin Detemir (Levemir Vial) 14 units SQ HS [facility] Last Admin: 05/28/18 22:21 Dose: 14 units Labetalol HCl 200 mg/ (Labetalol HCl 100 mg) 300 mg PO TID [facility] Last Admin: 05/29/18 06:15 Dose: 300 mg Levetiracetam (Keppra Injection -) 500 mg IVPB BID [facility] Last Admin: 05/29/18 10:54 Dose: 500 mg Lisinopril (Prinivil) 10 mg PO DAILY [facility] Last Admin: 05/29/18 10:33 Dose: Not Given Midazolam HCl (Versed -) 5 mg IVPUSH ONCE ONE Stop: 05/29/18 13:31 Ondansetron HCl (Zofran Injection) 4 mg IVPUSH Q6H PRN PRN Reason: NAUSEA AND/OR VOMITING Last Admin: 05/11/18 19:00 Dose: 4 mg Pantoprazole Sodium (Protonix Iv) 40 mg IVPUSH DAILY [facility] Last Admin: 05/29/18 10:52 Dose: 40 mg Gen: intubated, sedated Heart: RRR Lung: scattered rhonchi Abd: soft, nontender Ext: no edema [employer]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[employer]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: sedated Laboratory Results - last 24 hr 05/26/18 05/26/18 05/26/18 05:32 11:49 17:40 WBC RBC Hgb Hct MCV MCH MCHC RDW Plt Count MPV Puncture Site ABG pH ABG pCO2 at Pt Temp ABG pO2 at Pt Temp ABG HCO3 ABG O2 Sat (Measured) ABG O2 Content ABG Base Excess Oziel Test Oxygen Flow Rate Sodium Potassium Chloride Carbon Dioxide Anion Gap BUN Creatinine Creat Clearance w eGFR POC Glucometer 268.75193 306.16387 [phone] Random Glucose Calcium Phosphorus Magnesium Total Bilirubin AST ALT Alkaline Phosphatase Total Protein Albumin 05/26/18 05/27/18 05/28/18 21:48 17:15 05:28 WBC RBC Hgb Hct MCV MCH MCHC RDW Plt Count MPV Puncture Site ABG pH ABG pCO2 at Pt Temp ABG pO2 at Pt Temp ABG HCO3 ABG O2 Sat (Measured) ABG O2 Content ABG Base Excess Oziel Test Oxygen Flow Rate Sodium Potassium Chloride Carbon Dioxide Anion Gap BUN Creatinine Creat Clearance w eGFR POC Glucometer 284.53752 269.06394 [phone] Random Glucose Calcium Phosphorus Magnesium Total Bilirubin AST ALT Alkaline Phosphatase Total Protein Albumin 05/28/18 05/28/18 05/28/18 12:22 17:29 22:12 WBC RBC Hgb Hct MCV MCH MCHC RDW Plt Count MPV Puncture Site ABG pH ABG pCO2 at Pt Temp ABG pO2 at Pt Temp ABG HCO3 ABG O2 Sat (Measured) ABG O2 Content ABG Base Excess Oziel Test Oxygen Flow Rate Sodium Potassium Chloride Carbon Dioxide Anion Gap BUN Creatinine Creat Clearance w eGFR POC Glucometer 255.74466 228.98109 [phone] Random Glucose Calcium Phosphorus Magnesium Total Bilirubin AST ALT Alkaline Phosphatase Total Protein Albumin 05/29/18 05/29/18 05/29/18 05:30 05:30 05:59 WBC 5.5 RBC 3.19 L Hgb 8.7 L Hct 27.3 L MCV 85.6 MCH 27.2 MCHC 31.8 L RDW 14.1 Plt Count 93 L MPV 11.4 H Puncture Site ABG pH ABG pCO2 at Pt Temp ABG pO2 at Pt Temp ABG HCO3 ABG O2 Sat (Measured) ABG O2 Content ABG Base Excess Oziel Test Oxygen Flow Rate Sodium 146 H Potassium 4.6 Chloride 110 H Carbon Dioxide 30 Anion Gap 6 L BUN 47 H Creatinine 0.9 Creat Clearance w eGFR > 60 POC Glucometer 158.24312 Random Glucose 139 H Calcium 8.2 L Phosphorus 3.1 Magnesium 2.8 H Total Bilirubin 0.5 AST 26 ALT 36 Alkaline Phosphatase 134 H Total Protein 5.2 L Albumin 1.8 L 05/29/18 07:20 WBC RBC Hgb Hct MCV MCH MCHC RDW Plt Count MPV Puncture Site Left radial ABG pH 7.45 ABG pCO2 at Pt Temp 42.6 ABG pO2 at Pt Temp 88.8 D ABG HCO3 29.0 H ABG O2 Sat (Measured) 96.7 ABG O2 Content 11.2 L ABG Base Excess 5.0 H Oziel Test No Result Required. 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
--- NOTE | 2018-05-29 13:25 | PN ---
Physical Exam: SUBJECTIVE: Patient seen and examined Patient reintubated overnight. propofol drip started stopped at 1100. Patient does not respond to voice, does not respond to pain. Pending Trach placement at 1400. OBJECTIVE: Vital Signs Period Temp Pulse Resp BP Sys/Goel Pulse Ox Last 24 Hr 98.6 F-99.6 F 80-95 16-26 110-139/59-78 99-99 GENERAL: The patient is intubated, unresponsive. HEAD: Normal with no signs of trauma. EYES: sclera anicteric, conjunctiva clear. No ptosis. sluggishly reactive pupils ENT: ET tube LUNGS: course breath sounds and rhonchi, no wheezes, no crackles, no accessory muscle use. HEART: Regular rate and rhythm, S1, S2 without murmur, rub or gallop. ABDOMEN: Soft, nondistended, no tenderness to palpation EXTREMITIES: 2+ pulses, warm, well-perfused, no edema. NEUROLOGICAL: AOx0, gait not observed. SKIN: Warm, dry, normal turgor, no rashes or lesions noted Laboratory Results - last 24 hr 05/26/18 05/26/18 05/26/18 05:32 11:49 17:40 WBC RBC Hgb Hct MCV MCH MCHC RDW Plt Count MPV Puncture Site ABG pH ABG pCO2 at Pt Temp ABG pO2 at Pt Temp ABG HCO3 ABG O2 Sat (Measured) ABG O2 Content ABG Base Excess Oziel Test Oxygen Flow Rate Sodium Potassium Chloride Carbon Dioxide Anion Gap BUN Creatinine Creat Clearance w eGFR POC Glucometer 268.80660 306.41381 [phone] Random Glucose Calcium Phosphorus Magnesium Total Bilirubin AST ALT Alkaline Phosphatase Total Protein Albumin 05/26/18 05/27/18 05/28/18 21:48 17:15 05:28 WBC RBC Hgb Hct MCV MCH MCHC RDW Plt Count MPV Puncture Site ABG pH ABG pCO2 at Pt Temp ABG pO2 at Pt Temp ABG HCO3 ABG O2 Sat (Measured) ABG O2 Content ABG Base Excess Oziel Test Oxygen Flow Rate Sodium Potassium Chloride Carbon Dioxide Anion Gap BUN Creatinine Creat Clearance w eGFR POC Glucometer 284.89453 269.50981 [phone] Random Glucose Calcium Phosphorus Magnesium Total Bilirubin AST ALT Alkaline Phosphatase Total Protein Albumin 05/28/18 05/28/18 05/28/18 12:22 17:29 22:12 WBC RBC Hgb Hct MCV MCH MCHC RDW Plt Count MPV Puncture Site ABG pH ABG pCO2 at Pt Temp ABG pO2 at Pt Temp ABG HCO3 ABG O2 Sat (Measured) ABG O2 Content ABG Base Excess Oziel Test Oxygen Flow Rate Sodium Potassium Chloride Carbon Dioxide Anion Gap BUN Creatinine Creat Clearance w eGFR POC Glucometer 255.73979 228.12189 [phone] Random Glucose Calcium Phosphorus Magnesium Total Bilirubin AST ALT Alkaline Phosphatase Total Protein Albumin 05/29/18 05/29/18 05/29/18 05:30 05:30 05:59 WBC 5.5 RBC 3.19 L Hgb 8.7 L Hct 27.3 L MCV 85.6 MCH 27.2 MCHC 31.8 L RDW 14.1 Plt Count 93 L MPV 11.4 H Puncture Site ABG pH ABG pCO2 at Pt Temp ABG pO2 at Pt Temp ABG HCO3 ABG O2 Sat (Measured) ABG O2 Content ABG Base Excess Oziel Test Oxygen Flow Rate Sodium 146 H Potassium 4.6 Chloride 110 H Carbon Dioxide 30 Anion Gap 6 L BUN 47 H Creatinine 0.9 Creat Clearance w eGFR > 60 POC Glucometer 158.26337 Random Glucose 139 H Calcium 8.2 L Phosphorus 3.1 Magnesium 2.8 H Total Bilirubin 0.5 AST 26 ALT 36 Alkaline Phosphatase 134 H Total Protein 5.2 L Albumin 1.8 L 05/29/18 07:20 WBC RBC Hgb Hct MCV MCH MCHC RDW Plt Count MPV Puncture Site Left radial ABG pH 7.45 ABG pCO2 at Pt Temp 42.6 ABG pO2 at Pt Temp 88.8 D ABG HCO3 29.0 H ABG O2 Sat (Measured) 96.7 ABG O2 Content 11.2 L ABG Base Excess 5.0 H Oziel Test No Result Required. Oxygen Flow Rate Yes Sodium Potassium Chloride Carbon Dioxide Anion Gap BUN Creatinine Creat Clearance w eGFR POC Glucometer Random Glucose Calcium Phosphorus Magnesium Total Bilirubin AST ALT Alkaline Phosphatase Total Protein Albumin Active Medications Generic Name Dose Route Start Last Admin Trade Name Freq PRN Reason Stop Dose Admin Acetaminophen 650 mg 05/13/18 10:24 05/21/18 21:22 Tylenol - PO 650 mg Q6H PRN Administration FEVER Acetylcysteine 200 mg 05/24/18 12:00 05/29/18 07:08 Mucomyst 20 Oral / Inh Use Only* NEB 200 mg RQID [facility] Administration Amlodipine Besylate 10 mg 05/13/18 10:00 05/29/18 10:33 Norvasc - PO Not Given DAILY [facility] Aspirin 81 mg 05/15/18 10:00 05/29/18 10:33 Ecotrin - PO Not Given DAILY [facility] Atorvastatin Calcium 80 mg 05/13/18 22:00 05/28/18 22:19 Lipitor - PO 80 mg HS [facility] Administration Docusate Sodium 100 mg 05/28/18 22:15 05/29/18 06:15 Colace Liquid - PO 100 mg TID [facility] Administration Heparin Sodium (Porcine) 5,000 unit 05/19/18 06:00 05/29/18 06:15 Heparin - SQ 5,000 unit TID [facility] Administration Vancomycin HCl 1,000 mg in 250 mls @ 200 mls/hr 05/19/18 11:30 05/29/18 10:56 Vancomycin (Pre-Docked) IVPB 200 mls/hr Q24H [facility] Administration Protocol Propofol 1,000,000 mcg in 100 mls @ 0.942 mls/hr 05/29/18 03:00 05/29/18 03: 30 Diprivan - IVPB 5 mcg/kg/min TITR [facility] 2.354 mls/hr Titration Protocol 2 MCG/KG/MIN Insulin Aspart 1 vial 05/22/18 11:00 05/29/18 11:44 Novolog Vial Sliding Scale - SQ 2 units ACHS [facility] Administration Protocol Insulin Detemir 14 units 05/22/18 22:00 05/28/18 22:21 Levemir Vial SQ 14 units HS [facility] Administration Labetalol HCl 200 mg/ 300 mg 05/13/18 14:00 05/29/18 06:15 Labetalol HCl 100 mg PO 300 mg TID [facility] Administration Levetiracetam 500 mg 05/11/18 22:00 05/29/18 10:54 Keppra Injection - IVPB 500 mg BID [facility] Administration Lisinopril 10 mg 05/22/18 12:15 05/29/18 10:33 Prinivil PO Not Given DAILY [facility] Midazolam HCl 5 mg 05/29/18 13:30 Versed - IVPUSH 05/29/18 13:31 ONCE ONE Ondansetron HCl 4 mg 05/11/18 17:57 05/11/18 19:00 Zofran Injection IVPUSH 4 mg Q6H PRN Administration NAUSEA AND/OR VOMITING Pantoprazole Sodium 40 mg 05/12/18 10:00 05/29/18 10:52 Protonix Iv IVPUSH 40 mg DAILY [facility] Administration ASSESSMENT/PLAN: 67 yo M w a hx of AFIB, recent hemorrhagic CVA, T2DM is here s/p Left frontal craniotomy and blood clot removal after being operated on by Dr. Taveras. Patient failed extubation and is now re-intubated. Tracheostomy to be placed today. Plan: Pulm: - intubated - tracheostomy placed today. - ABG daily - CXR improved since yesterday. GI: - Aspiration precautions. - Protonix 40 - Zofran PRN - Surgery (Nicastri and Mouthcard) on board with patient would like PEG tube to be placed tomorrow for aspiration risk. Pending consent. ID: - ID consulted - PNA: Abx for HCAP vs aspiration. - Positive Strep pneumo in the urine. - Positive MRSA in sputum - Positive E fecalis in urine - Vanc and zosyn being given - Contact precautions Nephro: - QI - likely Pre-renal injury. Improving. - Kidney US showed no hydronephrosis or stones b/l - Urine lites support pre-renal injury. - Renal on board Cardio: - Strict BP control with systolic < 130 - Lebatalol for elevated BP or rate control PRN - Patient is on home meds Neuro: - Daily sedation vacations to assess mental status - Keppra 500 mg for seizure prohylaxis. - Head of the bead 30 degrees. Endo: - Sliding scale - frequent glucose checks Prophylaxis: - Aspiration precautions. - Heparin 5000 TID F/E/N: - Tube Feeds with glucerna via NG tube. Pending PEG tube. - Replete lytes PRN - No standing fluids today Code Status: - DNR Dispo: - Patient will continue to receive monitoring in the ICU. Visit type - Emergency Visit Emergency Visit: No - New Patient This patient is new to me today: Yes Date on this admission: 05/29/18 - Critical Care Critical Care patient: Yes Total Critical Care Time (in minutes): 35 Critical Care Statement: The care of this patient involved high complexity decision making to prevent further life threatening deterioration of the patient 's condition and/or to evaluate & treat vital organ system(s) failure or risk of failure. - Discharge Referral Referred to [facility] No
[2018-05-29] MEDS ORDERED: MIDAZOLAM HCL 5 MG/1 ML Single Dose Vial IVPUSH ONE (13:30)
--- NOTE | 2018-05-29 14:28 | PROC ---
Procedure Note Procedure: Under informed consent a bilateral Fiberoptic Bronchoscopy was performed prior to the placement of a Percutaneous Tracheostomy by CTS. The bronchoscope was inserted into the ETT via an adaptor. The ETT was then fully suctioned and the trachea was entered. Thin copious secretions were noted the right and left bronchial segments. The bronchoscope was withdrawn into the distal tip of the ETT and remained in position to provide visualization of the placement of a Percutaneous Tracheostomy. The bronchoscope confirmed excellent placement. The brochoscope was then withdrawn from the ETT and inserted via the Trach. Again, excellent placement and no active bleeding was confirmed. Patient tolerated procedure very well with no immediate complications. STAT CXR ordered. Dr Gatica
--- NOTE | 2018-05-29 15:26 | CON.GI ---
Consult Consult Specialty:: GI Referred by:: Dr. Landrum Reason for Consultation:: Dysphagia - History of Present Illness Chief Complaint: Patient non-verbal History of Present Illness: 67 M admitted 05/10/18 for evaluation of progressive right hemiplegia and aphasia. had a previous ICH. Underwent craniotomy with evaluation of hematoma. Had trach placed today. Has had NGT for 2 weeks. underwent recent CABG and valve replacement. 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) Cardio/Vascular: Yes: CAD - Past Surgical History Past Surgical History: Yes: CABG, Valve Replacement - Alcohol/Substance Use Hx Alcohol Use: No History of Substance Use: reports: None - Smoking History Smoking history: Never smoked Have you smoked in the past 12 months: No Home Medications - Allergies Allergies/Adverse Reactions: Allergies Allergy/AdvReac Type Severity Reaction Status Date / Time No Known Drug Allergies Allergy Verified 05/10/18 17:18 - Home Medications Home Medications: Ambulatory Orders Acetaminophen 650 mg PO Q6H PRN 05/10/18 Albuterol 2.5/Ipratropium 0.5 [Duoneb -] 1 neb IH QID 05/10/18 Amlodipine Besylate [Norvasc -] 10 mg PO DAILY 05/10/18 Aspirin [Aspirin EC] 81 mg PO DAILY 05/10/18 Atorvastatin Ca [Lipitor] 80 mg PO HS 05/10/18 Calcium Carbonate [Calcium Antacid] 300 mg PO Q6H PRN 05/10/18 Chlorhexidine Gluconate [Peridex -] 15 ml MM BID 05/10/18 Docusate Sodium [Colace] 100 mg PO TID 05/10/18 Ferrous Sulfate 325 mg PO BID 05/10/18 Furosemide [Lasix] 40 mg PO DAILY 05/10/18 Insulin Glargine,Hum.rec.anlog [Lantus Solostar] 40 unit SQ HS 05/10/18 Insulin Lispro [Humalog] 0 unit SQ TIDCM PRN 05/10/18 Labetalol HCl 300 mg PO TID 05/10/18 Lisinopril [Prinivil] 20 mg PO DAILY 05/10/18 Magnesium Hydroxide [Milk of Magnesia] 30 ml PO HS PRN 05/10/18 Melatonin 3 mg PO HS PRN 05/10/18 Nicotine [Nicotine Patch 7 mg/24 hr] 1 each TD DAILY 05/10/18 Oxycodone HCl 5 mg PO Q4H PRN 05/10/18 Pantoprazole Sodium 40 mg PO DAILY 05/10/18 Polyethylene Glycol 3350 [Miralax (For Daily Use) -] 17 gm PO DAILY 05/10/18 Pregabalin [Lyrica -] 50 mg PO DAILY 05/10/18 Simethicone 80 mg PO QID PRN 05/10/18 Sodium Chloride [Saline Mist] 2 sprays NS BID 05/10/18 Tramadol HCl 50 mg PO Q6H PRN 05/10/18 Zinc Oxide 20% Topical Oint 0 gm NR BID 05/10/18 Family Disease History - Family Disease History Family History: Unable to Obtain Review of Systems Unable to obtain ROS, reason: Patient trached on vent Physical Exam-GI Vital Signs: Vital Signs Temperature 98.6 F 05/29/18 14:10 Pulse Rate 116 H 05/29/18 14:10 Respiratory Rate 17 05/29/18 14:10 Blood Pressure 152/82 05/29/18 14:10 O2 Sat by Pulse Oximetry (%) 95 05/29/18 14:10 Constitutional: Yes: Calm Cardiovascular: Yes: Regular Rate and Rhythm. No: Murmur Respiratory: Yes: Diminished (at bases bilaterally) Gastrointestinal Inspection: Yes: Scars (sternotomy scar extending to upper abdomen). No: Distention ...Auscultate: Yes: Normoactive Bowel Sounds ...Palpate: No: Tenderness (No drimacing upon palpation) ...Percussion: No: Tympanitic Edema: No (No LE edema) Labs: CBC, BMP 05/29/18 05:30 05/29/18 05:30 INR, PTT INR 1.06 (0.83-1.09) 05/10/18 16:15 Hepatic Panel Total Bilirubin 0.5 mg/dL (0.2-1) 05/29/18 05:30 AST 26 U/L (15-37) 05/29/18 05:30 ALT 36 U/L (13-61) 05/29/18 05:30 Alkaline Phosphatase 134 U/L (45-117) H 05/29/18 05:30 Albumin 1.8 g/dl (3.4-5.0) L 05/29/18 05:30 Problem List - Problems (1) Dysphagia Assessment/Plan: Asked to evaluate for PEG for skilled nursing feeding. Reason for the PEG was for aspiration risk, however PEG does not decrease risk of aspiration. I discussed the possibility of PEG with Mr. Gonzalez's sister Yuni Feldman . We discussed potential risks of the procedure like but not limited to bleeding, perforation requiring surgery to repair, infection, sedation medication effects all of which could be potentially life threatening. I explained that premature dislodgement of the G tube could lead to a life threatening infection called peritonitis. She has agreed to the procedure. She explained that she would sign the consent for PEG this evening. Hold AM heparing in case PEG can be performed tomorrow. Patient already on IV Vanco Code(s): R13.10 - DYSPHAGIA, UNSPECIFIED Qualifiers: Dysphagia type: unspecified Qualified Code(s): R13.10 - Dysphagia, unspecified
--- NOTE | 2018-05-29 17:27 | PN ---
Progress Note, Physician History of Present Illness: Pt seen and examined at bedside earlier today. He was going to get a trache at the time. - Current Medication List Current Medications: Active Medications Acetaminophen (Tylenol -) 650 mg PO Q6H PRN PRN Reason: FEVER Last Admin: 05/21/18 21:22 Dose: 650 mg Amlodipine Besylate (Norvasc -) 10 mg PO DAILY [facility] Last Admin: 05/29/18 10:33 Dose: Not Given Aspirin (Ecotrin -) 81 mg PO DAILY [facility] Last Admin: 05/29/18 10:33 Dose: Not Given Atorvastatin Calcium (Lipitor -) 80 mg PO HS [facility] Last Admin: 05/28/18 22:19 Dose: 80 mg Docusate Sodium (Colace Liquid -) 100 mg PO TID [facility] Last Admin: 05/29/18 17:08 Dose: Not Given Heparin Sodium (Porcine) (Heparin -) 5,000 unit SQ TID [facility] Last Admin: 05/29/18 17:09 Dose: Not Given Vancomycin HCl (Vancomycin (Pre-Docked)) 1,000 mg in 250 mls @ 200 mls/hr IVPB Q24H [facility]; Protocol Last Admin: 05/29/18 10:56 Dose: 200 mls/hr Propofol (Diprivan -) 1,000,000 mcg in 100 mls @ 0.942 mls/hr IVPB TITR [facility]; Protocol Last Titration: 05/29/18 03:30 Dose: 5 mcg/kg/min, 2.354 mls/hr Insulin Aspart (Novolog Vial Sliding Scale -) 1 vial SQ ACHS [facility]; Protocol Last Admin: 05/29/18 17:11 Dose: 4 units Insulin Detemir (Levemir Vial) 14 units SQ HS [facility] Last Admin: 05/28/18 22:21 Dose: 14 units Labetalol HCl 200 mg/ (Labetalol HCl 100 mg) 300 mg PO TID [facility] Last Admin: 05/29/18 17:08 Dose: Not Given Levetiracetam (Keppra Injection -) 500 mg IVPB BID [facility] Last Admin: 05/29/18 10:54 Dose: 500 mg Lisinopril (Prinivil) 10 mg PO DAILY [facility] Last Admin: 05/29/18 10:33 Dose: Not Given Ondansetron HCl (Zofran Injection) 4 mg IVPUSH Q6H PRN PRN Reason: NAUSEA AND/OR VOMITING Last Admin: 05/11/18 19:00 Dose: 4 mg Pantoprazole Sodium (Protonix Iv) 40 mg IVPUSH DAILY [facility] Last Admin: 05/29/18 10:52 Dose: 40 mg - Objective Vital Signs: Vital Signs Temperature 98.5 F 05/29/18 14:30 Pulse Rate 96 H 05/29/18 14:30 Respiratory Rate 16 05/29/18 16:15 Blood Pressure 102/67 05/29/18 14:30 O2 Sat by Pulse Oximetry (%) 86 L 05/29/18 14:30 Constitutional: Yes: Calm Eyes: Yes: Conjunctiva Clear HENT: Yes: Atraumatic Cardiovascular: Yes: S1, S2 Respiratory: Yes: Mechanically Ventilated Gastrointestinal: Yes: Soft Musculoskeletal: Yes: Muscle Weakness Edema: No Neurological: Yes: Lethargy Labs: CBC, BMP 05/29/18 05:30 05/29/18 05:30 INR, PTT INR 1.06 (0.83-1.09) 05/10/18 16:15 - ....Imaging Chest X-ray: Report Reviewed Problem List - Problems (1) Hypernatremia Code(s): E87.0 - HYPEROSMOLALITY AND HYPERNATREMIA (2) QI (acute kidney injury) Code(s): N17.9 - ACUTE KIDNEY FAILURE, UNSPECIFIED (3) Diabetes Code(s): E11.9 - TYPE 2 DIABETES MELLITUS WITHOUT COMPLICATIONS Qualifiers: Diabetes mellitus type: type 2 Assessment/Plan Current Medications Generic Name Dose Route Start Last Admin Trade Name Freq PRN Reason Stop Dose Admin Acetaminophen 650 mg 05/13/18 10:24 05/21/18 21:22 Tylenol - PO 650 mg Q6H PRN Administration FEVER Amlodipine Besylate 10 mg 05/13/18 10:00 05/29/18 10:33 Norvasc - PO Not Given DAILY [facility] Aspirin 81 mg 05/15/18 10:00 05/29/18 10:33 Ecotrin - PO Not Given DAILY [facility] Atorvastatin Calcium 80 mg 05/13/18 22:00 05/28/18 22:19 Lipitor - PO 80 mg HS [facility] Administration Docusate Sodium 100 mg 05/28/18 22:15 05/29/18 17:08 Colace Liquid - PO Not Given TID [facility] Heparin Sodium (Porcine) 5,000 unit 05/19/18 06:00 05/29/18 17:09 Heparin - SQ Not Given TID [facility] Vancomycin HCl 1,000 mg in 250 mls @ 200 mls/hr 05/19/18 11:30 05/29/18 10:56 Vancomycin (Pre-Docked) IVPB 200 mls/hr Q24H [facility] Administration Protocol Propofol 1,000,000 mcg in 100 mls @ 0.942 mls/hr 05/29/18 03:00 05/29/18 03: 30 Diprivan - IVPB 5 mcg/kg/min TITR [facility] 2.354 mls/hr Titration Protocol 2 MCG/KG/MIN Insulin Aspart 1 vial 05/22/18 11:00 05/29/18 17:11 Novolog Vial Sliding Scale - SQ 4 units ACHS [facility] Administration Protocol Insulin Detemir 14 units 05/22/18 22:00 05/28/18 22:21 Levemir Vial SQ 14 units HS [facility] Administration Labetalol HCl 200 mg/ 300 mg 05/13/18 14:00 05/29/18 17:08 Labetalol HCl 100 mg PO Not Given TID [facility] Levetiracetam 500 mg 05/11/18 22:00 05/29/18 10:54 Keppra Injection - IVPB 500 mg BID [facility] Administration Lisinopril 10 mg 05/22/18 12:15 05/29/18 10:33 Prinivil PO Not Given DAILY [facility] Ondansetron HCl 4 mg 05/11/18 17:57 05/11/18 19:00 Zofran Injection IVPUSH 4 mg Q6H PRN Administration NAUSEA AND/OR VOMITING Pantoprazole Sodium 40 mg 05/12/18 10:00 05/29/18 10:52 Protonix Iv IVPUSH 40 mg DAILY [facility] Administration Impression 1. QI 2. hypernatremia 3. hemorrhagic CVA 4. DM 5. a-fib 6. Acute Respiratory Failure 7. s/p Left frontal craniotomy, excision of thalamic hermorrhagic mass 8. hyperkalemia Plan - resume free water with feeds once possible - pt was NPO - monitor lytes - discussed with ICU - monitor sodium - will follow Dr Davies
[2018-05-29] MEDS: ATORVASTATIN CA 80 MG TABLET (FP) PO SCH (21:42)
[2018-05-29] MEDS: INSULIN (LEVEMIR) 100 UNITS/ML UNITS SQ SCH (22:48)
[2018-05-30] MEDS: PROPOFOL 1,000,000 MCG/100 ML VIAL IVPB SCH (02:00)
[2018-05-30] MEDS ORDERED: HEMOQUE TEST 1 EACH EACH ONE (04:03)
[2018-05-30] MEDS ORDERED: LABETALOL HCL 100 MG TABLET (FP) ONE ×3 (04:56→21:06)
[2018-05-30] MEDS ORDERED: LABETALOL HCL 200 MG TABLET (FP) ONE ×3 (04:56→21:06)
[2018-05-30] MEDS: DOCUSATE NA 100 MG/10 ML UNIT-DOSE CUPS PO SCH ×3 (05:26→22:26)
[2018-05-30] MEDS: LABETALOL HCL 200 MG, LABETALOL HCL 100 MG PO SCH ×3 (05:26→22:22)
[2018-05-30] MEDS: INSULIN SLIDING SCALE (NOVOLOG) 1 VIAL SQ SCH ×4 (06:17→22:27)
[2018-05-30] MEDS ORDERED: ceFAZolin SODIUM 1 GM VIAL ONE (08:26)
[2018-05-30 08:45] LABS: INR 1.17 (0.83-1.09); PROTHROMBIN TIME (PATIENT) 13.8 SEC (9.7-13.0)
[2018-05-30 08:48] LABS: ACTIVATED PTT 24.5 SECONDS (25.2-36.5)
[2018-05-30 08:52] LABS: BASO % 0.6 % (0-2.0); EOS % 1.6 % (0-4.5); HEMATOCRIT 25.9 % (35.4-49); HEMOGLOBIN 8.2 GM/dL (11.7-16.9); LYMPH % 15.2 % (8-40); MCH 27.2 pg (25.7-33.7); MCHC 31.6 g/dl (32.0-35.9); MEAN PLT VOLUME 10.9 fl (7.5-11.1); MONO % 6.8 % (3.8-10.2); NEUT % 75.8 % (42.8-82.8); PLATELET COUNT 89 K/MM3 (134-434); RBC 3.01 M/mm3 (4.00-5.60); RDW 14.2 % (11.9-15.9); WHITE BLOOD COUNT 5.4 K/mm3 (4.0-10.0)
--- NOTE | 2018-05-30 09:00 | OPR ---
Patient Name: Juan M Gonzalez MR#: [id number] Procedure Date: 05/29/2018 Date of Admission: 05/10/2018 Preoperative Diagnosis: 1. Respiratory failure; 2. CVA x 3 s/p craniotomy; 3. DM; 4. Neuropathy; 5. Atrial fibrillation; Postoperative Diagnosis: same. Procedure: 1. Percutaneous tracheostomy with #8 Shiley; 2. Bronchoscopy (performed by Dr. Gatica). Indication: Respiratory failure; Surgeon(s): Alex Wagner MD Cosurgeon: poppy Plexiglas Former Surgeon: poppy. Anesthesia: General endotracheal; Findings: Moderate secretions. Specimens Sent: 1. na; Complications: none Drains / Tubes / Catheters: na Hardware / Implants: na Blood / Fluid Losses: minimal Post-Operative Condition: Stable. Indications: This patient is a 67 year-old male with respiratory failure referred for tracheostomy by Dr. Gatica and the ICU team. The ICU team obtained informed consent from his family. Details of Procedure: The procedure was done at the bedside. We began with bronchoscopy to clear the airway for the procedure. This was done by Dr. Gatica. After this, the neck was prepared and draped in standard fashion. We then made a transverse incision below the cricoid cartilage. We withdrew the endotracheal airway until we were close to the vocal cords. With the incision in place, we inserted the needle from the percutaneous bronchoscopy kit under direct bronchoscopic vision identifying approximately the 2nd to 3rd ring. We then passed a wire under vision. We then dilated up and inserted the tracheostomy. We put the cuff up and connected the ventilator. We placed the bronchoscope through the tracheostomy and then above. There was no active bleeding and the placement was good.
--- NOTE | 2018-05-30 09:07 | PN ---
Progress Note (short form) - Note Progress Note: EGD report placed in procedural section of physical chart and to be scanned into [facility]. PEG complete. Please follow instructions as outlined in procedure note and in order section of [facility]. Problem List - Problems (1) Dysphagia Code(s): R13.10 - DYSPHAGIA, UNSPECIFIED Qualifiers: Dysphagia type: unspecified Qualified Code(s): R13.10 - Dysphagia, unspecified
[2018-05-30 09:38] LABS: ALBUMIN 1.8 g/dl (3.4-5.0); ALK PHOS 124 U/L (45-117); ANION GAP 6 MMOL/L (8-16); BILIRUBIN,TOTAL 0.5 mg/dL (0.2-1); BLOOD UREA NITROGEN 36 mg/dL (7-18); CALCIUM 8.4 mg/dL (8.5-10.1); CHLORIDE 112 mmol/L (98-107); CO2 29 mmol/L (21-32); CREATININE 0.8 mg/dL (0.55-1.3); GLUCOSE,RANDOM 154 mg/dL (74-106); MAGNESIUM 2.7 mg/dL (1.8-2.4); PHOSPHOROUS 3.3 mg/dL (2.5-4.9); POTASSIUM 4.4 mmol/L (3.5-5.1); SGOT/AST 22 U/L (15-37); SGPT/ALT 32 U/L (13-61); SODIUM 147 mmol/L (136-145); TOT PROT 5.4 g/dl (6.4-8.2)
--- NOTE | 2018-05-30 09:39 | PN ---
Progress Note, Physician - Current Medication List Current Medications: Active Medications Acetaminophen (Tylenol -) 650 mg PO Q6H PRN PRN Reason: FEVER Last Admin: 05/21/18 21:22 Dose: 650 mg Amlodipine Besylate (Norvasc -) 10 mg PO DAILY [facility] Last Admin: 05/29/18 10:33 Dose: Not Given Aspirin (Ecotrin -) 81 mg PO DAILY [facility] Last Admin: 05/29/18 10:33 Dose: Not Given Atorvastatin Calcium (Lipitor -) 80 mg PO HS [facility] Last Admin: 05/29/18 21:42 Dose: 80 mg Bacitracin (Bacitracin -) 1 applic TP BID [facility] Stop: 06/04/18 09:59 Docusate Sodium (Colace Liquid -) 100 mg PO TID [facility] Last Admin: 05/30/18 05:26 Dose: 100 mg Heparin Sodium (Porcine) (Heparin -) 5,000 unit SQ TID [facility] Last Admin: 05/29/18 21:42 Dose: 5,000 unit Vancomycin HCl (Vancomycin (Pre-Docked)) 1,000 mg in 250 mls @ 200 mls/hr IVPB Q24H [facility]; Protocol Last Admin: 05/29/18 10:56 Dose: 200 mls/hr Propofol (Diprivan -) 1,000,000 mcg in 100 mls @ 0.942 mls/hr IVPB TITR [facility]; Protocol Last Admin: 05/30/18 02:00 Dose: 10 mcg/kg/min, 4.708 mls/hr Insulin Aspart (Novolog Vial Sliding Scale -) 1 vial SQ ACHS [facility]; Protocol Last Admin: 05/30/18 06:17 Dose: Not Given Insulin Detemir (Levemir Vial) 14 units SQ HS [facility] Last Admin: 05/29/18 22:48 Dose: Not Given Labetalol HCl 200 mg/ (Labetalol HCl 100 mg) 300 mg PO TID [facility] Last Admin: 05/30/18 05:26 Dose: 300 mg Levetiracetam (Keppra Injection -) 500 mg IVPB BID [facility] Last Admin: 05/29/18 21:43 Dose: 500 mg Lisinopril (Prinivil) 10 mg PO DAILY [facility] Last Admin: 05/29/18 10:33 Dose: Not Given Ondansetron HCl (Zofran Injection) 4 mg IVPUSH Q6H PRN PRN Reason: NAUSEA AND/OR VOMITING Last Admin: 05/11/18 19:00 Dose: 4 mg Pantoprazole Sodium (Protonix Iv) 40 mg IVPUSH DAILY [facility] Last Admin: 05/29/18 10:52 Dose: 40 mg - Objective Vital Signs: Vital Signs Temperature 99.6 F 05/30/18 09:32 Pulse Rate 88 05/30/18 09:32 Respiratory Rate 16 05/30/18 09:32 Blood Pressure 109/60 05/30/18 09:32 O2 Sat by Pulse Oximetry (%) 98 05/30/18 08:00 Labs: CBC, BMP 05/30/18 08:00 05/30/18 08:00 INR, PTT INR 1.17 (0.83-1.09) H 05/30/18 08:00 Problem List - Problems (1) Intracranial bleed Code(s): I62.9 - NONTRAUMATIC INTRACRANIAL HEMORRHAGE, UNSPECIFIED (2) Diabetes Code(s): E11.9 - TYPE 2 DIABETES MELLITUS WITHOUT COMPLICATIONS Qualifiers: Diabetes mellitus type: type 2 (3) HTN (hypertension) Code(s): I10 - ESSENTIAL (PRIMARY) HYPERTENSION (4) Respiratory failure Code(s): J96.90 - RESPIRATORY FAILURE, UNSP, UNSP W HYPOXIA OR HYPERCAPNIA Assessment/Plan - Problems (1) S/P craniotomy Assessment/Plan: on keppra for seizure s/p removal of thalamic mass Code(s): Z98.890 - OTHER SPECIFIED POSTPROCEDURAL STATES (2) Hypernatremia Assessment/Plan: sodium is 146 will monitor Code(s): E87.0 - HYPEROSMOLALITY AND HYPERNATREMIA (3) Respiratory failure Assessment/Plan: failed multipel events at extubation s/p trach Procedure: 1. Percutaneous tracheostomy with #8 Shiley; 2. Bronchoscopy (performed by Dr. Gatica). Indication: Respiratory failure; Surgeon(s): Alex Wagner MD Code(s): J96.90 - RESPIRATORY FAILURE, UNSP, UNSP W HYPOXIA OR HYPERCAPNIA (4) Diabetes Assessment/Plan: seen by endo levemir and sliding scale Code(s): E11.9 - TYPE 2 DIABETES MELLITUS WITHOUT COMPLICATIONS Qualifiers: Diabetes mellitus type: type 2 (5) HTN (hypertension) Assessment/Plan: labetolol,norvasc,lisinopril Code(s): I10 - ESSENTIAL (PRIMARY) HYPERTENSION (6) Pneumonia Assessment/Plan: Microbiology 05/15/18 19:15 Sputum - Endotrachea Suction/Ventilator Gram Stain - Final 05/15/18 19:15 Sputum - Endotrachea Suction/Ventilator Sputum Culture - Final Mr S Aureus Klebsiella Pneumoniae Diphtheroid/Corynebacterium MRSA contact precautions,isolation kan Code(s): J18.9 - PNEUMONIA, UNSPECIFIED ORGANISM Assessment/Plan For PEG today
[2018-05-30] MEDS ORDERED: PT OWN MED DRAWER 7, Y5N ONE ×2 (09:56→11:08)
[2018-05-30] MEDS ORDERED: BACITRACIN 15 GM TUBE TOPICAL OINTMENT TP SCH (10:00)
[2018-05-30] MEDS: ASPIRIN COATED 81 MG TABLET.EC PO SCH (10:02)
[2018-05-30] MEDS: amLODIPine BESYLATE 10 MG TABLET (FP) PO SCH (10:03)
[2018-05-30] MEDS: LISINOPRIL 10 MG TABLET (FP) PO SCH (10:03)
[2018-05-30] MEDS: ACETAMINOPHEN 325 MG TABLET (FP) PO PRN (10:03)
[2018-05-30] MEDS: PANTOPRAZOLE SODIUM 40 MG VIAL IVPUSH SCH (10:04)
[2018-05-30] MEDS: levETIRAcetam 500 MG/5 ML INJECTION VIAL IVPB SCH ×2 (10:04→22:25)
[2018-05-30 10:09] LABS: ARTERIAL BLD GAS O2 SATURATION 96.9 % (90-98.9); ARTERIAL BLOOD GAS BASE EXCESS 4.2 meq/l (-2-2); ARTERIAL BLOOD GAS PCO2 40.5 mmHg (35-45); ARTERIAL BLOOD GAS PO2 88.5 mmHg (80-100); ARTERIAL BLOOD GAS pH 7.45 (7.35-7.45)
[2018-05-30 10:13] LABS: ALLENS TEST POSITIVE
[2018-05-30] MEDS: VANCOMYCIN 1 GRAM (PRE-DOCKED) 1,000 MG/250 ML BAG IVPB SCH (11:14)
[2018-05-30] MEDS ORDERED: amLODIPine BESYLATE 10 MG TABLET (FP) PEG SCH (11:39)
[2018-05-30] MEDS ORDERED: ATORVASTATIN CA 80 MG TABLET (FP) PEG SCH (11:39)
[2018-05-30] MEDS ORDERED: LISINOPRIL 10 MG TABLET (FP) PEG SCH (11:40)
[2018-05-30] MEDS ORDERED: VANCOMYCIN 1,000 MG in DEXTROSE 5%-WATER - 250 ML PEG SCH (11:45)
[2018-05-30] MEDS ORDERED: VANCOMYCIN 250 MG/5 ML ORAL SOLUTION PEG SCH (12:00)
[2018-05-30] MEDS ORDERED: LORazepam 0.5 MG TABLET PEG PRN (12:10)
--- NOTE | 2018-05-30 12:22 | PN ---
Teaching Attending Note Name of Resident: Nancy Elizabeth ATTENDING PHYSICIAN STATEMENT I saw and evaluated the patient. I reviewed the resident's note and discussed the case with the resident. I agree with the resident's findings and plan as documented. SUBJECTIVE: Patient seen and examined in the ICU. POD#1 Perc Trach. Sedated. No acute issues overnight. S/P PEG this AM without issues. OBJECTIVE: Intake & Output 05/27/18 05/28/18 05/29/18 05/30/18 23:59 23:59 23:59 23:59 Intake Total 1092 2385 716.6 158.8 Output Total 1999 2100 1500 1100 Balance -908 285 -783.4 -941.2 Weight 78 lb 1.6 oz 173 lb 173 lb 5 oz 166 lb 7.184 oz Last Vital Signs Temp Pulse Resp BP Pulse Ox 99.6 F 88 16 140/69 98 05/30/18 09:32 05/30/18 11:57 05/30/18 11:57 05/30/18 11:57 05/30/18 08:00 Active Medications Acetaminophen (Tylenol -) 650 mg PO Q6H PRN PRN Reason: FEVER Last Admin: 05/30/18 10:03 Dose: 650 mg Amlodipine Besylate (Norvasc -) 10 mg PEG DAILY [facility] Aspirin (Ecotrin -) 81 mg NR DAILY [facility] Atorvastatin Calcium (Lipitor -) 80 mg PEG HS [facility] Bacitracin (Bacitracin -) 1 applic TP BID [facility] Stop: 06/04/18 09:59 Last Admin: 05/30/18 10:02 Dose: 1 applic Docusate Sodium (Colace Liquid -) 100 mg PO TID [facility] Last Admin: 05/30/18 05:26 Dose: 100 mg Heparin Sodium (Porcine) (Heparin -) 5,000 unit SQ TID [facility] Last Admin: 05/29/18 21:42 Dose: 5,000 unit Vancomycin HCl (Vancomycin (Pre-Docked)) 1,000 mg in 250 mls @ 200 mls/hr IVPB Q24H [facility]; Protocol Last Admin: 05/30/18 11:14 Dose: 200 mls/hr Insulin Aspart (Novolog Vial Sliding Scale -) 1 vial SQ ACHS [facility]; Protocol Last Admin: 05/30/18 11:23 Dose: 6 units Insulin Detemir (Levemir Vial) 14 units SQ HS [facility] Last Admin: 05/29/18 22:48 Dose: Not Given Labetalol HCl 200 mg/ (Labetalol HCl 100 mg) 300 mg PO TID [facility] Last Admin: 05/30/18 05:26 Dose: 300 mg Levetiracetam (Keppra Injection -) 500 mg IVPB BID [facility] Last Admin: 05/30/18 10:04 Dose: 500 mg Lisinopril (Prinivil) 10 mg PEG DAILY [facility] Lorazepam (Ativan -) 0.5 mg PEG Q6H PRN PRN Reason: AGITATION Ondansetron HCl (Zofran Injection) 4 mg IVPUSH Q6H PRN PRN Reason: NAUSEA AND/OR VOMITING Last Admin: 05/11/18 19:00 Dose: 4 mg Pantoprazole Sodium (Protonix Iv) 40 mg IVPUSH DAILY [facility] Last Admin: 05/30/18 10:04 Dose: 40 mg Vancomycin HCl (Vancomycin Oral Solution) 1,000 mg PEG Q24H [facility] Gen: Trached, sedated Heart: RRR Lung: scattered rhonchi Abd: soft, nontender Ext: no edema RATE INSERTER: sedated Laboratory Results - last 24 hr 05/29/18 05/29/18 05/29/18 11:36 17:07 22:35 WBC RBC Hgb Hct MCV MCH MCHC RDW Plt Count MPV Absolute Neuts (auto) Neutrophils % Lymphocytes % Monocytes % Eosinophils % Basophils % Nucleated RBC % PT with INR INR PTT (Actin FS) Puncture Site ABG pH ABG pCO2 at Pt Temp ABG pO2 at Pt Temp ABG HCO3 ABG O2 Sat (Measured) ABG O2 Content ABG Base Excess Oziel Test Oxygen Flow Rate Vent Mode Vent Rate Mechanical Rate PEEP Pressure Support Vent Sodium Potassium Chloride Carbon Dioxide Anion Gap BUN Creatinine Creat Clearance w eGFR POC Glucometer 137.03391 173.78021 164.20410 Random Glucose Calcium Phosphorus Magnesium Total Bilirubin AST ALT Alkaline Phosphatase Total Protein Albumin Blood Type Antibody Screen 05/30/18 05/30/18 05/30/18 06:15 08:00 08:00 WBC RBC Hgb Hct MCV MCH MCHC RDW Plt Count MPV Absolute Neuts (auto) Neutrophils % Lymphocytes % Monocytes % Eosinophils % Basophils % Nucleated RBC % PT with INR 13.80 H INR 1.17 H PTT (Actin FS) 24.5 L Puncture Site ABG pH ABG pCO2 at Pt Temp ABG pO2 at Pt Temp ABG HCO3 ABG O2 Sat (Measured) ABG O2 Content ABG Base Excess Oziel Test Oxygen Flow Rate Vent Mode Vent Rate Mechanical Rate PEEP Pressure Support Vent Sodium 147 H Potassium 4.4 Chloride 112 H Carbon Dioxide 29 Anion Gap 6 L BUN 36 H Creatinine 0.8 Creat Clearance w eGFR > 60 POC Glucometer 176.11446 Random Glucose 154 H Calcium 8.4 L Phosphorus 3.3 Magnesium 2.7 H Total Bilirubin 0.5 AST 22 ALT 32 Alkaline Phosphatase 124 H Total Protein 5.4 L Albumin 1.8 L Blood Type Antibody Screen 05/30/18 05/30/18 05/30/18 08:00 08:00 10:00 WBC 5.4 RBC 3.01 L Hgb 8.2 L Hct 25.9 L MCV 86.0 MCH 27.2 MCHC 31.6 L RDW 14.2 Plt Count 89 L MPV 10.9 Absolute Neuts (auto) 4.1 Neutrophils % 75.8 Lymphocytes % 15.2 D Monocytes % 6.8 Eosinophils % 1.6 Basophils % 0.6 Nucleated RBC % 0 PT with INR INR PTT (Actin FS) Puncture Site Right radial ABG pH 7.45 ABG pCO2 at Pt Temp 40.5 ABG pO2 at Pt Temp 88.5 ABG HCO3 28.0 H ABG O2 Sat (Measured) 96.9 ABG O2 Content 12.3 L ABG Base Excess 4.2 H Oziel Test Positive Oxygen Flow Rate Yes Vent Mode A/c Vent Rate 16 Mechanical Rate Vent PEEP 5.0 Pressure Support Vent 450 Sodium Potassium Chloride Carbon Dioxide Anion Gap BUN Creatinine Creat Clearance w eGFR POC Glucometer Random Glucose Calcium Phosphorus Magnesium Total Bilirubin AST ALT Alkaline Phosphatase Total Protein Albumin Blood Type A POSITIVE Antibody Screen Negative ASSESSMENT AND PLAN: POD#1 Perc 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
--- NOTE | 2018-05-30 12:46 | PN ---
Physical Exam: SUBJECTIVE: Patient seen and examined Patient seen and examined Patient trach placed yesterday. Pending PEG this AM. OBJECTIVE: Vital Signs Period Temp Pulse Resp BP Sys/Goel Pulse Ox Last 24 Hr 98.3 F-100.5 F 83-121 16-24 95-167/60-95 86-100 GENERAL: The patient with trach tube. Alert, awake, AOX0 HEAD: Normal with no signs of trauma. EYES: sclera anicteric, conjunctiva clear. No ptosis. sluggishly reactive pupils ENT: Trach tube LUNGS: course breath sounds and rhonchi, no wheezes, no crackles, no accessory muscle use. HEART: Regular rate and rhythm, S1, S2 without murmur, rub or gallop. ABDOMEN: Soft, nondistended, no tenderness to palpation EXTREMITIES: 2+ pulses, warm, well-perfused, no edema. NEUROLOGICAL: AOx0, gait not observed. SKIN: Warm, dry, normal turgor, no rashes or lesions noted Laboratory Results - last 24 hr 05/29/18 05/29/18 05/29/18 11:36 17:07 22:35 WBC RBC Hgb Hct MCV MCH MCHC RDW Plt Count MPV Absolute Neuts (auto) Neutrophils % Lymphocytes % Monocytes % Eosinophils % Basophils % Nucleated RBC % PT with INR INR PTT (Actin FS) Puncture Site ABG pH ABG pCO2 at Pt Temp ABG pO2 at Pt Temp ABG HCO3 ABG O2 Sat (Measured) ABG O2 Content ABG Base Excess Oziel Test Oxygen Flow Rate Vent Mode Vent Rate Mechanical Rate PEEP Pressure Support Vent Sodium Potassium Chloride Carbon Dioxide Anion Gap BUN Creatinine Creat Clearance w eGFR POC Glucometer 137.11552 173.75802 164.79548 Random Glucose Calcium Phosphorus Magnesium Total Bilirubin AST ALT Alkaline Phosphatase Total Protein Albumin Blood Type Antibody Screen 05/30/18 05/30/18 05/30/18 06:15 08:00 08:00 WBC RBC Hgb Hct MCV MCH MCHC RDW Plt Count MPV Absolute Neuts (auto) Neutrophils % Lymphocytes % Monocytes % Eosinophils % Basophils % Nucleated RBC % PT with INR 13.80 H INR 1.17 H PTT (Actin FS) 24.5 L Puncture Site ABG pH ABG pCO2 at Pt Temp ABG pO2 at Pt Temp ABG HCO3 ABG O2 Sat (Measured) ABG O2 Content ABG Base Excess Oziel Test Oxygen Flow Rate Vent Mode Vent Rate Mechanical Rate PEEP Pressure Support Vent Sodium 147 H Potassium 4.4 Chloride 112 H Carbon Dioxide 29 Anion Gap 6 L BUN 36 H Creatinine 0.8 Creat Clearance w eGFR > 60 POC Glucometer 176.93292 Random Glucose 154 H Calcium 8.4 L Phosphorus 3.3 Magnesium 2.7 H Total Bilirubin 0.5 AST 22 ALT 32 Alkaline Phosphatase 124 H Total Protein 5.4 L Albumin 1.8 L Blood Type Antibody Screen 05/30/18 05/30/18 05/30/18 08:00 08:00 10:00 WBC 5.4 RBC 3.01 L Hgb 8.2 L Hct 25.9 L MCV 86.0 MCH 27.2 MCHC 31.6 L RDW 14.2 Plt Count 89 L MPV 10.9 Absolute Neuts (auto) 4.1 Neutrophils % 75.8 Lymphocytes % 15.2 D Monocytes % 6.8 Eosinophils % 1.6 Basophils % 0.6 Nucleated RBC % 0 PT with INR INR PTT (Actin FS) Puncture Site Right radial ABG pH 7.45 ABG pCO2 at Pt Temp 40.5 ABG pO2 at Pt Temp 88.5 ABG HCO3 28.0 H ABG O2 Sat (Measured) 96.9 ABG O2 Content 12.3 L ABG Base Excess 4.2 H Oziel Test Positive Oxygen Flow Rate Yes Vent Mode A/c Vent Rate 16 Mechanical Rate Vent PEEP 5.0 Pressure Support Vent 450 Sodium Potassium Chloride Carbon Dioxide Anion Gap BUN Creatinine Creat Clearance w eGFR POC Glucometer Random Glucose Calcium Phosphorus Magnesium Total Bilirubin AST ALT Alkaline Phosphatase Total Protein Albumin Blood Type A POSITIVE Antibody Screen Negative Active Medications Generic Name Dose Route Start Last Admin Trade Name Chrisq PRN Reason Stop Dose Admin Acetaminophen 650 mg 05/13/18 10:24 05/30/18 10:03 Tylenol - PO 650 mg Q6H PRN Administration FEVER Amlodipine Besylate 10 mg 05/30/18 11:39 Norvasc - PEG DAILY [facility] Aspirin 81 mg 05/30/18 12:12 Ecotrin - NR DAILY [facility] Atorvastatin Calcium 80 mg 05/30/18 11:39 Lipitor - PEG HS [facility] Bacitracin 1 applic 05/30/18 10:00 05/30/18 10:02 Bacitracin - TP 06/04/18 09:59 1 applic BID [facility] Administration Docusate Sodium 100 mg 05/28/18 22:15 05/30/18 05:26 Colace Liquid - PO 100 mg TID [facility] Administration Heparin Sodium (Porcine) 5,000 unit 05/19/18 06:00 05/29/18 21:42 Heparin - SQ 5,000 unit TID [facility] Administration Vancomycin HCl 1,000 mg in 250 mls @ 200 mls/hr 05/19/18 11:30 05/30/18 11:14 Vancomycin (Pre-Docked) IVPB 200 mls/hr Q24H [facility] Administration Protocol Insulin Aspart 1 vial 05/22/18 11:00 05/30/18 11:23 Novolog Vial Sliding Scale - SQ 6 units ACHS [facility] Administration Protocol Insulin Detemir 14 units 05/22/18 22:00 05/29/18 22:48 Levemir Vial SQ Not Given HS [facility] Labetalol HCl 200 mg/ 300 mg 05/13/18 14:00 05/30/18 05:26 Labetalol HCl 100 mg PO 300 mg TID [facility] Administration Levetiracetam 500 mg 05/11/18 22:00 05/30/18 10:04 Keppra Injection - IVPB 500 mg BID [facility] Administration Lisinopril 10 mg 05/30/18 11:40 Prinivil PEG DAILY [facility] Lorazepam 0.5 mg 05/30/18 12:10 Ativan - PEG Q6H PRN AGITATION Ondansetron HCl 4 mg 05/11/18 17:57 05/11/18 19:00 Zofran Injection IVPUSH 4 mg Q6H PRN Administration NAUSEA AND/OR VOMITING Pantoprazole Sodium 40 mg 05/12/18 10:00 05/30/18 10:04 Protonix Iv IVPUSH 40 mg DAILY [facility] Administration Vancomycin HCl 1,000 mg 05/31/18 06:00 Vancomycin Oral Solution PEG Q24H [facility] ASSESSMENT/PLAN: 67 yo M w a hx of AFIB, recent hemorrhagic CVA, T2DM is here s/p Left frontal craniotomy and blood clot removal after being operated on by Dr. Taveras. Patient w/tracheostomy and PEG tube this AM Plan: Pulm: - intubated - tracheostomy placed - ABG daily - CXR improved since yesterday. GI: - Aspiration precautions. - Protonix 40 - Zofran PRN - DiGiorno following ID: - ID consulted - PNA: Abx for HCAP vs aspiration. - Positive Strep pneumo in the urine. - Positive MRSA in sputum - Positive E fecalis in urine - Vanc and zosyn being given - Contact precautions Nephro: - QI - likely Pre-renal injury. Improving. - Kidney US showed no hydronephrosis or stones b/l - Urine lites support pre-renal injury. - Renal on board Cardio: - Strict BP control with systolic < 130 - Lebatalol for elevated BP or rate control PRN - Patient is on home meds Neuro: - Daily sedation vacations to assess mental status - Keppra 500 mg for seizure prohylaxis. - Head of the bead 30 degrees. Endo: - Sliding scale - frequent glucose checks Prophylaxis: - Aspiration precautions. - Heparin 5000 TID F/E/N: - Tube Feeds with glucerna via NG tube. Pending PEG tube. - Replete lytes PRN - No standing fluids today Code Status: - DNR Dispo: Pt to be transferred. Visit type - Emergency Visit Emergency Visit: No - New Patient This patient is new to me today: No - Critical Care Critical Care patient: No - Discharge Referral Referred to [facility] No
[2018-05-30] MEDS ORDERED: ASPIRIN 81 MG CHEWABLE TABLETS PEG ONE (13:00)
[2018-05-30] MEDS ORDERED: ONDANSETRON 4 MG/2 ML VIAL IVPUSH PRN (13:38)
[2018-05-30] MEDS ORDERED: ACETAMINOPHEN 325 MG TABLET (FP) PO PRN (13:38)
[2018-05-30 13:47] VITALS: BMI 24.5
[2018-05-30] MEDS: HEPARIN NA (PORCINE) 5,000 UNITS/ML 1ML VIAL SQ SCH (15:10)
[2018-05-30] MEDS ORDERED: D5-1/2NS+20 MEQ KCL - 20 MEQ/1,000 ML INFUS.BAG IV SCH (18:00)
--- NOTE | 2018-05-30 18:17 | PN ---
Progress Note, Physician History of Present Illness: Pt seen and examined at bedside. He had the PEG tube placed and is NPO until tomorrow. - Current Medication List Current Medications: Active Medications Acetaminophen (Tylenol -) 650 mg PO Q6H PRN PRN Reason: FEVER Amlodipine Besylate (Norvasc -) 10 mg PEG DAILY [facility] Aspirin (Ecotrin -) 81 mg NR DAILY [facility] Atorvastatin Calcium (Lipitor -) 80 mg PEG HS [facility] Bacitracin (Bacitracin -) 1 applic TP BID [facility] Stop: 06/04/18 09:59 Docusate Sodium (Colace Liquid -) 100 mg PO TID [facility] Last Admin: 05/30/18 15:10 Dose: 100 mg Heparin Sodium (Porcine) (Heparin -) 5,000 unit SQ TID [facility] Last Admin: 05/30/18 15:10 Dose: 5,000 unit Potassium Chloride/Dextrose/Sod Cl (D5-1/2ns+20 Meq Kcl -) 20 meq in 1,000 mls @ 75 mls/hr IV ASDIR [facility] Last Admin: 05/30/18 18:04 Dose: 75 mls/hr Insulin Aspart (Novolog Vial Sliding Scale -) 1 vial SQ [facility]; Protocol Last Admin: 05/30/18 17:57 Dose: 4 units Insulin Detemir (Levemir Vial) 14 units SQ HS [facility] Labetalol HCl 200 mg/ (Labetalol HCl 100 mg) 300 mg PO TID [facility] Last Admin: 05/30/18 15:07 Dose: 300 mg Levetiracetam (Keppra Injection -) 500 mg IVPB BID [facility] Lisinopril (Prinivil) 10 mg PEG DAILY [facility] Lorazepam (Ativan -) 0.5 mg PEG Q6H PRN PRN Reason: AGITATION Ondansetron HCl (Zofran Injection) 4 mg IVPUSH Q6H PRN PRN Reason: NAUSEA AND/OR VOMITING Pantoprazole Sodium (Protonix Iv) 40 mg IVPUSH DAILY [facility] - Objective Vital Signs: Vital Signs Temperature 98.0 F 05/30/18 14:06 Pulse Rate 92 H 05/30/18 15:18 Respiratory Rate 16 05/30/18 16:12 Blood Pressure 143/68 05/30/18 15:18 O2 Sat by Pulse Oximetry (%) 95 05/30/18 10:00 Constitutional: Yes: Calm Eyes: Yes: Conjunctiva Clear HENT: Yes: Other (trache) Cardiovascular: Yes: S1, S2 Respiratory: Yes: Mechanically Ventilated Gastrointestinal: Yes: Soft, Other (peg) Musculoskeletal: Yes: Muscle Weakness Edema: No Neurological: Yes: Lethargy Labs: CBC, BMP 05/30/18 08:00 05/30/18 08:00 INR, PTT INR 1.17 (0.83-1.09) H 05/30/18 08:00 Problem List - Problems (1) Hypernatremia Code(s): E87.0 - HYPEROSMOLALITY AND HYPERNATREMIA (2) QI (acute kidney injury) Code(s): N17.9 - ACUTE KIDNEY FAILURE, UNSPECIFIED (3) Diabetes Code(s): E11.9 - TYPE 2 DIABETES MELLITUS WITHOUT COMPLICATIONS Qualifiers: Diabetes mellitus type: type 2 Assessment/Plan Current Medications Generic Name Dose Route Start Last Admin Trade Name Freq PRN Reason Stop Dose Admin Acetaminophen 650 mg 05/30/18 13:38 Tylenol - PO Q6H PRN FEVER Amlodipine Besylate 10 mg 05/31/18 10:00 Norvasc - PEG DAILY [facility] Aspirin 81 mg 05/30/18 12:12 Ecotrin - NR DAILY [facility] Atorvastatin Calcium 80 mg 05/30/18 22:00 Lipitor - PEG HS [facility] Bacitracin 1 applic 05/30/18 22:00 Bacitracin - TP 06/04/18 09:59 BID [facility] Docusate Sodium 100 mg 05/30/18 14:00 05/30/18 15:10 Colace Liquid - PO 100 mg TID [facility] Administration Heparin Sodium (Porcine) 5,000 unit 05/30/18 14:00 05/30/18 15:10 Heparin - SQ 5,000 unit TID [facility] Administration Potassium Chloride/Dextrose/Sod Cl 20 meq in 1,000 mls @ 75 mls/hr 05/30/18 18 :00 05/30/18 18:04 D5-1/2ns+20 Meq Kcl - IV 75 mls/hr ASDIR [facility] Administration Insulin Aspart 1 vial 05/30/18 16:30 05/30/18 17:57 Novolog Vial Sliding Scale - SQ 4 units ACHS [facility] Administration Protocol Insulin Detemir 14 units 05/30/18 22:00 Levemir Vial SQ HS [facility] Labetalol HCl 200 mg/ 300 mg 05/30/18 14:00 05/30/18 15:07 Labetalol HCl 100 mg PO 300 mg TID [facility] Administration Levetiracetam 500 mg 05/30/18 22:00 Keppra Injection - IVPB BID [facility] Lisinopril 10 mg 05/31/18 10:00 Prinivil PEG DAILY [facility] Lorazepam 0.5 mg 05/30/18 12:10 Ativan - PEG Q6H PRN AGITATION Ondansetron HCl 4 mg 05/30/18 13:38 Zofran Injection IVPUSH Q6H PRN NAUSEA AND/OR VOMITING Pantoprazole Sodium 40 mg 05/31/18 10:00 Protonix Iv IVPUSH DAILY [facility] Impression 1. QI 2. hypernatremia 3. hemorrhagic CVA 4. DM 5. a-fib 6. Acute Respiratory Failure 7. s/p Left frontal craniotomy, excision of thalamic hermorrhagic mass 8. hyperkalemia Plan - will start d5w as he is NPO until tomorrow - repeat labs in am - will adjust free water with feeds once started - sodium is higher today - discussed with ICU Dr Davies
[2018-05-30] MEDS: POTASSIUM CHLORIDE 10 MEQ in DEXTROSE 5%-WATER - 1,000 ML IVPB SCH (20:07)
[2018-05-30] MEDS: ATORVASTATIN CA 80 MG TABLET (FP) PEG SCH (22:22)
[2018-05-30] MEDS: INSULIN (LEVEMIR) 100 UNITS/ML UNITS SQ SCH (22:25)
[2018-05-30] MEDS: BACITRACIN 15 GM TUBE TOPICAL OINTMENT TP SCH (22:27)
[2018-05-31] MEDS ORDERED: LABETALOL HCL 200 MG TABLET (FP) ONE ×3 (05:53→21:49)
[2018-05-31] MEDS ORDERED: LABETALOL HCL 100 MG TABLET (FP) ONE ×3 (05:54→21:49)
[2018-05-31] MEDS ORDERED: VANCOMYCIN 250 MG/5 ML ORAL SOLUTION PEG SCH (06:00)
[2018-05-31] MEDS: INSULIN SLIDING SCALE (NOVOLOG) 1 VIAL SQ SCH ×4 (06:02→22:02)
[2018-05-31] MEDS: DOCUSATE NA 100 MG/10 ML UNIT-DOSE CUPS PO SCH ×3 (06:03→22:01)
[2018-05-31] MEDS: LABETALOL HCL 200 MG, LABETALOL HCL 100 MG PO SCH ×3 (06:04→22:01)
[2018-05-31 06:55] LABS: EOS % 1.8 % (0-4.5); HEMATOCRIT 26.7 % (35.4-49); HEMOGLOBIN 8.6 GM/dL (11.7-16.9); LYMPH % 18.1 % (8-40); MCH 27.5 pg (25.7-33.7); MCHC 32.2 g/dl (32.0-35.9); MEAN CELL VOLUME 85.4 fl (80-96); MONO % 6.3 % (3.8-10.2); NEUT % 72.8 % (42.8-82.8); PLATELET COUNT 89 K/MM3 (134-434); RBC 3.13 M/mm3 (4.00-5.60); RDW 14.2 % (11.9-15.9); WHITE BLOOD COUNT 4.5 K/mm3 (4.0-10.0)
--- NOTE | 2018-05-31 08:41 | PN ---
Progress Note (short form) - Note Progress Note: Abdomen examined: Non-distended. G-Tube with dried blood on combine and under PEG. Dried blood removed using sterile water and dried. Bacitracin was applied to the G tube site. It flushed freely. There was no peripeg induration/erythema. Normal BS. No blood aspirated from G-Tube. Hgb 8.6 today OK to use PEG for feeds. Please follow other recommendations as outlined in order section of [facility] and in procedure report. Stared glucerna w/ titration recommendations per web press operator apprentice. Problem List - Problems (1) Dysphagia Code(s): R13.10 - DYSPHAGIA, UNSPECIFIED Qualifiers: Dysphagia type: unspecified Qualified Code(s): R13.10 - Dysphagia, unspecified
--- NOTE | 2018-05-31 09:12 | PN ---
Progress Note, Physician - Current Medication List Current Medications: Active Medications Acetaminophen (Tylenol -) 650 mg PO Q6H PRN PRN Reason: FEVER Amlodipine Besylate (Norvasc -) 10 mg PEG DAILY [facility] Aspirin (Asa -) 81 mg PEG DAILY [facility] Atorvastatin Calcium (Lipitor -) 80 mg PEG HS [facility] Last Admin: 05/30/18 22:22 Dose: 80 mg Bacitracin (Bacitracin -) 1 applic TP BID [facility] Stop: 06/04/18 09:59 Last Admin: 05/30/18 22:27 Dose: 1 applic Docusate Sodium (Colace Liquid -) 100 mg PO TID [facility] Last Admin: 05/31/18 06:03 Dose: 100 mg Heparin Sodium (Porcine) (Heparin -) 5,000 unit SQ TID [facility] Last Admin: 05/30/18 15:10 Dose: 5,000 unit Potassium Chloride 10 meq/ (Dextrose) 1,005 mls @ 75 mls/hr IVPB Q13H [facility] Last Admin: 05/30/18 20:07 Dose: 75 mls/hr Insulin Aspart (Novolog Vial Sliding Scale -) 1 vial SQ [facility]; Protocol Last Admin: 05/31/18 06:02 Dose: 4 units Insulin Detemir (Levemir Vial) 14 units SQ HS [facility] Last Admin: 05/30/18 22:25 Dose: 14 units Labetalol HCl 200 mg/ (Labetalol HCl 100 mg) 300 mg PO TID [facility] Last Admin: 05/31/18 06:04 Dose: 300 mg Levetiracetam (Keppra Injection -) 500 mg IVPB BID [facility] Last Admin: 05/30/18 22:25 Dose: 500 mg Lisinopril (Prinivil) 10 mg PEG DAILY [facility] Lorazepam (Ativan -) 0.5 mg PEG Q6H PRN PRN Reason: AGITATION Ondansetron HCl (Zofran Injection) 4 mg IVPUSH Q6H PRN PRN Reason: NAUSEA AND/OR VOMITING Pantoprazole Sodium (Protonix Iv) 40 mg IVPUSH DAILY [facility] - Objective Vital Signs: Vital Signs Temperature 98.2 F 05/31/18 06:00 Pulse Rate 101 H 05/31/18 06:00 Respiratory Rate 20 05/31/18 06:00 Blood Pressure 146/68 05/31/18 06:00 O2 Sat by Pulse Oximetry (%) 97 05/30/18 20:15 Cardiovascular: Yes: S1, S2 Respiratory: Yes: Mechanically Ventilated Gastrointestinal: Yes: Normal Bowel Sounds, Soft, Other (peg) Labs: CBC, BMP 05/31/18 06:00 05/30/18 08:00 INR, PTT INR 1.17 (0.83-1.09) H 05/30/18 08:00 Problem List - Problems (1) Intracranial bleed Code(s): I62.9 - NONTRAUMATIC INTRACRANIAL HEMORRHAGE, UNSPECIFIED (2) Diabetes Code(s): E11.9 - TYPE 2 DIABETES MELLITUS WITHOUT COMPLICATIONS Qualifiers: Diabetes mellitus type: type 2 (3) HTN (hypertension) Code(s): I10 - ESSENTIAL (PRIMARY) HYPERTENSION (4) Respiratory failure Code(s): J96.90 - RESPIRATORY FAILURE, UNSP, UNSP W HYPOXIA OR HYPERCAPNIA Assessment/Plan - Problems (1) S/P craniotomy Assessment/Plan: on keppra for seizure s/p removal of thalamic mass Code(s): Z98.890 - OTHER SPECIFIED POSTPROCEDURAL STATES (2) Nutrition Assessment/Plan: s/peg start feeding Code(s): E87.0 - HYPEROSMOLALITY AND HYPERNATREMIA (3) Respiratory failure Assessment/Plan: failed multipel events at extubation s/p trach Procedure: 1. Percutaneous tracheostomy with #8 Shiley; 2. Bronchoscopy (performed by Dr. Gatica). Indication: Respiratory failure; Surgeon(s): Alex Wagner MD Code(s): J96.90 - RESPIRATORY FAILURE, UNSP, UNSP W HYPOXIA OR HYPERCAPNIA (4) Diabetes Assessment/Plan: seen by endo levemir and sliding scale Code(s): E11.9 - TYPE 2 DIABETES MELLITUS WITHOUT COMPLICATIONS Qualifiers: Diabetes mellitus type: type 2 (5) HTN (hypertension) Assessment/Plan: labetolol,norvasc,lisinopril Code(s): I10 - ESSENTIAL (PRIMARY) HYPERTENSION (6) Pneumonia Assessment/Plan: Microbiology 05/15/18 19:15 Sputum - Endotrachea Suction/Ventilator Gram Stain - Final 05/15/18 19:15 Sputum - Endotrachea Suction/Ventilator Sputum Culture - Final Mr S Aureus Klebsiella Pneumoniae Diphtheroid/Corynebacterium MRSA contact precautions,isolation [facility] Code(s): J18.9 - PNEUMONIA, UNSPECIFIED ORGANISM
[2018-05-31] MEDS: POTASSIUM CHLORIDE 10 MEQ in DEXTROSE 5%-WATER - 1,000 ML IVPB SCH ×2 (10:05→21:59)
[2018-05-31] MEDS: LISINOPRIL 10 MG TABLET (FP) PEG SCH (10:06)
[2018-05-31] MEDS: ASPIRIN 81 MG CHEWABLE TABLETS PEG SCH (10:07)
[2018-05-31] MEDS: PANTOPRAZOLE SODIUM 40 MG VIAL IVPUSH SCH (10:07)
[2018-05-31] MEDS: amLODIPine BESYLATE 10 MG TABLET (FP) PEG SCH (10:07)
[2018-05-31] MEDS: levETIRAcetam 500 MG/5 ML INJECTION VIAL IVPB SCH ×2 (10:07→22:00)
[2018-05-31] MEDS: BACITRACIN 15 GM TUBE TOPICAL OINTMENT TP SCH ×2 (10:08→22:38)
--- NOTE | 2018-05-31 12:05 | PN ---
Progress Note, Physician History of Present Illness: Pt seen and examined at bedside. He is now in the [facility]. - Current Medication List Current Medications: Active Medications Acetaminophen (Tylenol -) 650 mg PO Q6H PRN PRN Reason: FEVER Amlodipine Besylate (Norvasc -) 10 mg PEG DAILY [facility] Last Admin: 05/31/18 10:07 Dose: 10 mg Aspirin (Asa -) 81 mg PEG DAILY [facility] Last Admin: 05/31/18 10:07 Dose: 81 mg Atorvastatin Calcium (Lipitor -) 80 mg PEG HS [facility] Last Admin: 05/30/18 22:22 Dose: 80 mg Bacitracin (Bacitracin -) 1 applic TP BID [facility] Stop: 06/04/18 09:59 Last Admin: 05/31/18 10:08 Dose: 1 applic Docusate Sodium (Colace Liquid -) 100 mg PO TID [facility] Last Admin: 05/31/18 06:03 Dose: 100 mg Heparin Sodium (Porcine) (Heparin -) 5,000 unit SQ TID [facility] Last Admin: 05/30/18 15:10 Dose: 5,000 unit Potassium Chloride 10 meq/ (Dextrose) 1,005 mls @ 75 mls/hr IVPB Q13H [facility] Last Admin: 05/31/18 10:05 Dose: 75 mls/hr Insulin Aspart (Novolog Vial Sliding Scale -) 1 vial SQ [facility]; Protocol Last Admin: 05/31/18 06:02 Dose: 4 units Insulin Detemir (Levemir Vial) 14 units SQ [facility] Last Admin: 05/30/18 22:25 Dose: 14 units Labetalol HCl 200 mg/ (Labetalol HCl 100 mg) 300 mg PO TID [facility] Last Admin: 05/31/18 06:04 Dose: 300 mg Levetiracetam (Keppra Injection -) 500 mg IVPB BID [facility] Last Admin: 05/31/18 10:07 Dose: 500 mg Lisinopril (Prinivil) 10 mg PEG DAILY [facility] Last Admin: 05/31/18 10:06 Dose: 10 mg Lorazepam (Ativan -) 0.5 mg PEG Q6H PRN PRN Reason: AGITATION Ondansetron HCl (Zofran Injection) 4 mg IVPUSH Q6H PRN PRN Reason: NAUSEA AND/OR VOMITING Pantoprazole Sodium (Protonix Iv) 40 mg IVPUSH DAILY [facility] Last Admin: 05/31/18 10:07 Dose: 40 mg - Objective Vital Signs: Vital Signs Temperature 99.1 F 05/31/18 10:00 Pulse Rate 101 H 05/31/18 10:00 Respiratory Rate 24 H 05/31/18 10:00 Blood Pressure 133/84 05/31/18 10:00 O2 Sat by Pulse Oximetry (%) 98 05/31/18 10:00 Constitutional: Yes: Calm Eyes: Yes: Conjunctiva Clear HENT: Yes: Atraumatic Neck: Yes: Other (trache) Cardiovascular: Yes: S1, S2 Gastrointestinal: Yes: Other (peg) Genitourinary: Yes: Smith Present Musculoskeletal: Yes: Muscle Weakness Edema: No Neurological: Yes: Lethargy Labs: CBC, BMP 05/31/18 06:00 05/30/18 08:00 INR, PTT INR 1.17 (0.83-1.09) H 05/30/18 08:00 Problem List - Problems (1) Hypernatremia Code(s): E87.0 - HYPEROSMOLALITY AND HYPERNATREMIA (2) QI (acute kidney injury) Code(s): N17.9 - ACUTE KIDNEY FAILURE, UNSPECIFIED (3) Diabetes Code(s): E11.9 - TYPE 2 DIABETES MELLITUS WITHOUT COMPLICATIONS Qualifiers: Diabetes mellitus type: type 2 Assessment/Plan Current Medications Generic Name Dose Route Start Last Admin Trade Name Freq PRN Reason Stop Dose Admin Acetaminophen 650 mg 05/30/18 13:38 Tylenol - PO Q6H PRN FEVER Amlodipine Besylate 10 mg 05/31/18 10:00 05/31/18 10:07 Norvasc - PEG 10 mg DAILY [facility] Administration Aspirin 81 mg 05/31/18 10:00 05/31/18 10:07 Asa - PEG 81 mg DAILY [facility] Administration Atorvastatin Calcium 80 mg 05/30/18 22:00 05/30/18 22:22 Lipitor - PEG 80 mg HS [facility] Administration Bacitracin 1 applic 05/30/18 22:00 05/31/18 10:08 Bacitracin - TP 06/04/18 09:59 1 applic BID [facility] Administration Docusate Sodium 100 mg 05/30/18 14:00 05/31/18 06:03 Colace Liquid - PO 100 mg TID [facility] Administration Heparin Sodium (Porcine) 5,000 unit 05/30/18 14:00 05/30/18 15:10 Heparin - SQ 5,000 unit TID [facility] Administration Potassium Chloride 10 meq/ 1,005 mls @ 75 mls/hr 05/30/18 19:00 05/31/18 10: 05 Dextrose IVPB 75 mls/hr Q13H [facility] Administration Insulin Aspart 1 vial 05/30/18 16:30 05/31/18 06:02 Novolog Vial Sliding Scale - SQ 4 units ACHS [facility] Administration Protocol Insulin Detemir 14 units 05/30/18 22:00 05/30/18 22:25 Levemir Vial SQ 14 units HS [facility] Administration Labetalol HCl 200 mg/ 300 mg 05/30/18 14:00 05/31/18 06:04 Labetalol HCl 100 mg PO 300 mg TID [facility] Administration Levetiracetam 500 mg 05/30/18 22:00 05/31/18 10:07 Keppra Injection - IVPB 500 mg BID [facility] Administration Lisinopril 10 mg 05/31/18 10:00 05/31/18 10:06 Prinivil PEG 10 mg DAILY [facility] Administration Lorazepam 0.5 mg 05/30/18 12:10 Ativan - PEG Q6H PRN AGITATION Ondansetron HCl 4 mg 05/30/18 13:38 Zofran Injection IVPUSH Q6H PRN NAUSEA AND/OR VOMITING Pantoprazole Sodium 40 mg 05/31/18 10:00 05/31/18 10:07 Protonix Iv IVPUSH 40 mg DAILY [facility] Administration Impression 1. QI 2. hypernatremia 3. hemorrhagic CVA 4. DM 5. a-fib 6. Acute Respiratory Failure 7. s/p Left frontal craniotomy, excision of thalamic hermorrhagic mass 8. hyperkalemia Plan - pt started on feeds - ordered stat bmp to evaluate sodium and lytes, spoke to nurse to call me with the results - cont fluids, will decrease rate as feeds have been started - will follow - vent support Dr Davies
--- NOTE | 2018-05-31 13:20 | PN ---
Progress Note, Physician History of Present Illness: pulmonary poorly responsive on vent support ac mode - Current Medication List Current Medications: Active Medications Acetaminophen (Tylenol -) 650 mg PO Q6H PRN PRN Reason: FEVER Amlodipine Besylate (Norvasc -) 10 mg PEG DAILY [facility] Last Admin: 05/31/18 10:07 Dose: 10 mg Aspirin (Asa -) 81 mg PEG DAILY [facility] Last Admin: 05/31/18 10:07 Dose: 81 mg Atorvastatin Calcium (Lipitor -) 80 mg PEG HS [facility] Last Admin: 05/30/18 22:22 Dose: 80 mg Bacitracin (Bacitracin -) 1 applic TP BID [facility] Stop: 06/04/18 09:59 Last Admin: 05/31/18 10:08 Dose: 1 applic Docusate Sodium (Colace Liquid -) 100 mg PO TID [facility] Last Admin: 05/31/18 06:03 Dose: 100 mg Heparin Sodium (Porcine) (Heparin -) 5,000 unit SQ TID [facility] Last Admin: 05/30/18 15:10 Dose: 5,000 unit Potassium Chloride 10 meq/ (Dextrose) 1,005 mls @ 75 mls/hr IVPB Q13H [facility] Last Admin: 05/31/18 10:05 Dose: 75 mls/hr Insulin Aspart (Novolog Vial Sliding Scale -) 1 vial SQ [facility]; Protocol Last Admin: 05/31/18 12:09 Dose: 4 units Insulin Detemir (Levemir Vial) 14 units SQ [facility] Last Admin: 05/30/18 22:25 Dose: 14 units Labetalol HCl 200 mg/ (Labetalol HCl 100 mg) 300 mg PO TID [facility] Last Admin: 05/31/18 06:04 Dose: 300 mg Levetiracetam (Keppra Injection -) 500 mg IVPB BID [facility] Last Admin: 05/31/18 10:07 Dose: 500 mg Lisinopril (Prinivil) 10 mg PEG DAILY [facility] Last Admin: 05/31/18 10:06 Dose: 10 mg Lorazepam (Ativan -) 0.5 mg PEG Q6H PRN PRN Reason: AGITATION Ondansetron HCl (Zofran Injection) 4 mg IVPUSH Q6H PRN PRN Reason: NAUSEA AND/OR VOMITING Pantoprazole Sodium (Protonix Iv) 40 mg IVPUSH DAILY [facility] Last Admin: 05/31/18 10:07 Dose: 40 mg - Objective Vital Signs: Vital Signs Temperature 99.1 F 05/31/18 10:00 Pulse Rate 101 H 05/31/18 10:00 Respiratory Rate 24 H 05/31/18 10:00 Blood Pressure 133/84 05/31/18 10:00 O2 Sat by Pulse Oximetry (%) 98 05/31/18 10:00 Constitutional: Yes: Well Nourished, Other (poorly responsive) Eyes: Yes: WNL HENT: Yes: WNL Neck: Yes: Supple (trach) Cardiovascular: Yes: Pulse Irregular, S1, S2 Respiratory: Yes: Rhonchi (scattered nimo rhonchi) Gastrointestinal: Yes: Normal Bowel Sounds, Soft Extremities: Yes: WNL Edema: No Labs: CBC, BMP 05/31/18 06:00 05/30/18 08:00 INR, PTT INR 1.17 (0.83-1.09) H 05/30/18 08:00 Problem List - Problems (1) Diabetes Code(s): E11.9 - TYPE 2 DIABETES MELLITUS WITHOUT COMPLICATIONS Qualifiers: Diabetes mellitus type: type 2 (2) HTN (hypertension) Code(s): I10 - ESSENTIAL (PRIMARY) HYPERTENSION (3) Intracranial bleed Code(s): I62.9 - NONTRAUMATIC INTRACRANIAL HEMORRHAGE, UNSPECIFIED (4) Respiratory failure Code(s): J96.90 - RESPIRATORY FAILURE, UNSP, UNSP W HYPOXIA OR HYPERCAPNIA (5) S/P craniotomy Code(s): Z98.890 - OTHER SPECIFIED POSTPROCEDURAL STATES (6) Sepsis Code(s): A41.9 - SEPSIS, UNSPECIFIED ORGANISM (7) Afib Code(s): I48.91 - UNSPECIFIED ATRIAL FIBRILLATION (8) Pneumonia Code(s): J18.9 - PNEUMONIA, UNSPECIFIED ORGANISM Assessment/Plan ASSESSMENT AND PLAN: POD#1 Perc Trach 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 Acute Hypoxic Respiratory Failure Pneumonia Left Atelectasis improved Sepsis Atrial Fibrillation Acute Kidney Injury DM/Hyperglycemia - continue antibiotics per ID: consider to monitor off - chest PT, pulmonary toilet - continue albuterol/mucomyst - antiepileptics per neuro - glucose control - DVT/GI prophylaxis - Vent floor monitoring DR CABRALES
[2018-05-31 14:04] LABS: ANION GAP 8 MMOL/L (8-16); BLOOD UREA NITROGEN 24 mg/dL (7-18); CALCIUM 7.7 mg/dL (8.5-10.1); CHLORIDE 112 mmol/L (98-107); CO2 26 mmol/L (21-32); CREATININE 0.8 mg/dL (0.55-1.3); GLUCOSE,RANDOM 141 mg/dL (74-106); POTASSIUM 3.8 mmol/L (3.5-5.1); SODIUM 146 mmol/L (136-145)
[2018-05-31] MEDS ORDERED: INSULIN (LEVEMIR) 100 UNITS/ML UNITS SQ ONE (21:49)
[2018-05-31] MEDS ORDERED: PT OWN MED DRAWER 7, Y5N ONE (21:50)
[2018-05-31] MEDS: INSULIN (LEVEMIR) 100 UNITS/ML UNITS SQ SCH (22:00)
[2018-05-31] MEDS: HEPARIN NA (PORCINE) 5,000 UNITS/ML 1ML VIAL SQ SCH (22:01)
[2018-05-31] MEDS: ATORVASTATIN CA 80 MG TABLET (FP) PEG SCH (22:02)
[2018-06-01] MEDS: POTASSIUM CHLORIDE 10 MEQ in DEXTROSE 5%-WATER - 1,000 ML IVPB SCH ×2 (00:08→10:38)
[2018-06-01] MEDS ORDERED: LABETALOL HCL 200 MG TABLET (FP) ONE ×3 (06:03→21:19)
[2018-06-01] MEDS ORDERED: LABETALOL HCL 100 MG TABLET (FP) ONE ×3 (06:03→21:19)
[2018-06-01] MEDS: LABETALOL HCL 200 MG, LABETALOL HCL 100 MG PO SCH ×3 (06:25→21:52)
[2018-06-01] MEDS: DOCUSATE NA 100 MG/10 ML UNIT-DOSE CUPS PO SCH ×3 (06:25→21:52)
[2018-06-01] MEDS: HEPARIN NA (PORCINE) 5,000 UNITS/ML 1ML VIAL SQ SCH ×3 (06:26→21:56)
[2018-06-01] MEDS: INSULIN SLIDING SCALE (NOVOLOG) 1 VIAL SQ SCH ×4 (06:28→21:54)
[2018-06-01] MEDS ORDERED: PT OWN MED DRAWER 7, Y5N ONE ×2 (07:52→10:30)
[2018-06-01 08:37] LABS: BASO % 0.6 % (0-2.0); HEMATOCRIT 28.4 % (35.4-49); HEMOGLOBIN 9.3 GM/dL (11.7-16.9); LYMPH % 13.6 % (8-40); MCH 27.7 pg (25.7-33.7); MCHC 32.7 g/dl (32.0-35.9); MEAN CELL VOLUME 84.8 fl (80-96); MEAN PLT VOLUME 10.5 fl (7.5-11.1); MONO % 5.4 % (3.8-10.2); NEUT % 78.4 % (42.8-82.8); PLATELET COUNT 96 K/MM3 (134-434); RBC 3.35 M/mm3 (4.00-5.60); RDW 14.2 % (11.9-15.9); WHITE BLOOD COUNT 4.5 K/mm3 (4.0-10.0)
[2018-06-01 09:12] LABS: ALK PHOS 209 U/L (45-117); ANION GAP 7 MMOL/L (8-16); BILIRUBIN,TOTAL 0.6 mg/dL (0.2-1); BLOOD UREA NITROGEN 24 mg/dL (7-18); CHLORIDE 108 mmol/L (98-107); CO2 27 mmol/L (21-32); CREATININE 0.8 mg/dL (0.55-1.3); GLUCOSE,RANDOM 214 mg/dL (74-106); POTASSIUM 4.3 mmol/L (3.5-5.1); SGOT/AST 35 U/L (15-37); SGPT/ALT 48 U/L (13-61); SODIUM 142 mmol/L (136-145); TOT PROT 5.8 g/dl (6.4-8.2)
[2018-06-01] MEDS ORDERED: INSULIN (NOVOLOG) ASPART 100 UNITS/ML 10ML VIAL ONE (10:29)
[2018-06-01] MEDS: ASPIRIN 81 MG CHEWABLE TABLETS PEG SCH (10:37)
[2018-06-01] MEDS: PANTOPRAZOLE SODIUM 40 MG VIAL IVPUSH SCH (10:37)
[2018-06-01] MEDS: levETIRAcetam 500 MG/5 ML INJECTION VIAL IVPB SCH ×2 (10:37→21:52)
[2018-06-01] MEDS: LISINOPRIL 10 MG TABLET (FP) PEG SCH (10:37)
[2018-06-01] MEDS: BACITRACIN 15 GM TUBE TOPICAL OINTMENT TP SCH ×2 (10:38→21:55)
[2018-06-01] MEDS: amLODIPine BESYLATE 10 MG TABLET (FP) PEG SCH (10:38)
--- NOTE | 2018-06-01 12:30 | PN ---
Progress Note (short form) - Note Progress Note: PULMONARY VSS Poorly responsive on vent support ac mode Constitutional: Yes: Well Nourished, Other (poorly responsive) Eyes: Yes: WNL HENT: Yes: WNL Neck: Yes: Supple (trach) Cardiovascular: Yes: Pulse Irregular, S1, S2 Respiratory: Yes: Rhonchi (scattered nimo rhonchi) Gastrointestinal: Yes: Normal Bowel Sounds, Soft Extremities: Yes: WNL Edema: No LABS/MEDS/NOTES/IMAGES REVIEWED 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 Acute Hypoxic Respiratory Failure Pneumonia Left Atelectasis improved Sepsis Atrial Fibrillation Acute Kidney Injury DM/Hyperglycemia - chest PT, pulmonary toilet - continue albuterol/mucomyst - antiepileptics per neuro - glucose control - DVT/GI prophylaxis - Vent floor monitoring Truong SERRANO MD
--- NOTE | 2018-06-01 12:40 | PN ---
Progress Note, Physician History of Present Illness: Pt seen and examined at bedside. He is tolerating tube feeds. - Current Medication List Current Medications: Active Medications Acetaminophen (Tylenol -) 650 mg PO Q6H PRN PRN Reason: FEVER Amlodipine Besylate (Norvasc -) 10 mg PEG DAILY [facility] Last Admin: 06/01/18 10:38 Dose: 10 mg Aspirin (Asa -) 81 mg PEG DAILY [facility] Last Admin: 06/01/18 10:37 Dose: 81 mg Atorvastatin Calcium (Lipitor -) 80 mg PEG HS [facility] Last Admin: 05/31/18 22:02 Dose: 80 mg Bacitracin (Bacitracin -) 1 applic TP BID [facility] Stop: 06/04/18 09:59 Last Admin: 06/01/18 10:38 Dose: 1 applic Docusate Sodium (Colace Liquid -) 100 mg PO TID [facility] Last Admin: 06/01/18 06:25 Dose: 100 mg Heparin Sodium (Porcine) (Heparin -) 5,000 unit SQ TID [facility] Last Admin: 06/01/18 06:26 Dose: Not Given Potassium Chloride 10 meq/ (Dextrose) 1,005 mls @ 75 mls/hr IVPB Q13H [facility] Last Admin: 06/01/18 10:38 Dose: Not Given Insulin Aspart (Novolog Vial Sliding Scale -) 1 vial SQ [facility]; Protocol Last Admin: 06/01/18 11:42 Dose: 8 units Insulin Detemir (Levemir Vial) 14 units SQ [facility] Last Admin: 05/31/18 22:00 Dose: 14 units Labetalol HCl 200 mg/ (Labetalol HCl 100 mg) 300 mg PO TID [facility] Last Admin: 06/01/18 06:25 Dose: 300 mg Levetiracetam (Keppra Injection -) 500 mg IVPB BID [facility] Last Admin: 06/01/18 10:37 Dose: 500 mg Lisinopril (Prinivil) 10 mg PEG DAILY [facility] Last Admin: 06/01/18 10:37 Dose: 10 mg Lorazepam (Ativan -) 0.5 mg PEG Q6H PRN PRN Reason: AGITATION Ondansetron HCl (Zofran Injection) 4 mg IVPUSH Q6H PRN PRN Reason: NAUSEA AND/OR VOMITING Pantoprazole Sodium (Protonix Iv) 40 mg IVPUSH DAILY [facility] Last Admin: 06/01/18 10:37 Dose: 40 mg - Objective Vital Signs: Vital Signs Temperature 97.8 F 06/01/18 10:00 Pulse Rate 100 H 06/01/18 10:00 Respiratory Rate 17 06/01/18 11:32 Blood Pressure 104/68 06/01/18 10:00 O2 Sat by Pulse Oximetry (%) 99 06/01/18 08:04 Constitutional: Yes: Calm Eyes: Yes: Conjunctiva Clear Neck: Yes: Other (trache) Cardiovascular: Yes: S1, S2 Respiratory: Yes: Mechanically Ventilated Gastrointestinal: Yes: Soft, Other (peg) Genitourinary: Yes: Smith Present Musculoskeletal: Yes: Muscle Weakness Edema: No Neurological: Yes: Lethargy Labs: CBC, BMP 06/01/18 06:00 06/01/18 06:00 INR, PTT INR 1.17 (0.83-1.09) H 05/30/18 08:00 Problem List - Problems (1) Hypernatremia Code(s): E87.0 - HYPEROSMOLALITY AND HYPERNATREMIA (2) QI (acute kidney injury) Code(s): N17.9 - ACUTE KIDNEY FAILURE, UNSPECIFIED (3) Diabetes Code(s): E11.9 - TYPE 2 DIABETES MELLITUS WITHOUT COMPLICATIONS Qualifiers: Diabetes mellitus type: type 2 Assessment/Plan Current Medications Generic Name Dose Route Start Last Admin Trade Name Freq PRN Reason Stop Dose Admin Acetaminophen 650 mg 05/30/18 13:38 Tylenol - PO Q6H PRN FEVER Amlodipine Besylate 10 mg 05/31/18 10:00 06/01/18 10:38 Norvasc - PEG 10 mg DAILY [facility] Administration Aspirin 81 mg 05/31/18 10:00 06/01/18 10:37 Asa - PEG 81 mg DAILY [facility] Administration Atorvastatin Calcium 80 mg 05/30/18 22:00 05/31/18 22:02 Lipitor - PEG 80 mg HS [facility] Administration Bacitracin 1 applic 05/30/18 22:00 06/01/18 10:38 Bacitracin - TP 06/04/18 09:59 1 applic BID [facility] Administration Docusate Sodium 100 mg 05/30/18 14:00 06/01/18 06:25 Colace Liquid - PO 100 mg TID [facility] Administration Heparin Sodium (Porcine) 5,000 unit 05/30/18 14:00 06/01/18 06:26 Heparin - SQ Not Given TID [facility] Potassium Chloride 10 meq/ 1,005 mls @ 75 mls/hr 05/30/18 19:00 06/01/18 10: 38 Dextrose IVPB Not Given Q13H [facility] Insulin Aspart 1 vial 05/30/18 16:30 06/01/18 11:42 Novolog Vial Sliding Scale - SQ 8 units ACHS [facility] Administration Protocol Insulin Detemir 14 units 05/30/18 22:00 05/31/18 22:00 Levemir Vial SQ 14 units HS [facility] Administration Labetalol HCl 200 mg/ 300 mg 05/30/18 14:00 06/01/18 06:25 Labetalol HCl 100 mg PO 300 mg TID [facility] Administration Levetiracetam 500 mg 05/30/18 22:00 06/01/18 10:37 Keppra Injection - IVPB 500 mg BID [facility] Administration Lisinopril 10 mg 05/31/18 10:00 06/01/18 10:37 Prinivil PEG 10 mg DAILY [facility] Administration Lorazepam 0.5 mg 05/30/18 12:10 Ativan - PEG Q6H PRN AGITATION Ondansetron HCl 4 mg 05/30/18 13:38 Zofran Injection IVPUSH Q6H PRN NAUSEA AND/OR VOMITING Pantoprazole Sodium 40 mg 05/31/18 10:00 06/01/18 10:37 Protonix Iv IVPUSH 40 mg DAILY [facility] Administration Impression 1. QI 2. hypernatremia 3. hemorrhagic CVA 4. DM 5. a-fib 6. Acute Respiratory Failure 7. s/p Left frontal craniotomy, excision of thalamic hermorrhagic mass 8. hyperkalemia Plan - sodium is improved - pt tolerating feeds - can d/c IV fluids - will increase free water with feeds - repeat labs in am - will follow - vent support Dr Davies
--- NOTE | 2018-06-01 12:53 | PN ---
Progress Note, Physician - Current Medication List Current Medications: Active Medications Acetaminophen (Tylenol -) 650 mg PO Q6H PRN PRN Reason: FEVER Amlodipine Besylate (Norvasc -) 10 mg PEG DAILY [facility] Last Admin: 06/01/18 10:38 Dose: 10 mg Aspirin (Asa -) 81 mg PEG DAILY [facility] Last Admin: 06/01/18 10:37 Dose: 81 mg Atorvastatin Calcium (Lipitor -) 80 mg PEG HS [facility] Last Admin: 05/31/18 22:02 Dose: 80 mg Bacitracin (Bacitracin -) 1 applic TP BID [facility] Stop: 06/04/18 09:59 Last Admin: 06/01/18 10:38 Dose: 1 applic Docusate Sodium (Colace Liquid -) 100 mg PO TID [facility] Last Admin: 06/01/18 06:25 Dose: 100 mg Heparin Sodium (Porcine) (Heparin -) 5,000 unit SQ TID [facility] Last Admin: 06/01/18 06:26 Dose: Not Given Insulin Aspart (Novolog Vial Sliding Scale -) 1 vial SQ [facility]; Protocol Last Admin: 06/01/18 11:42 Dose: 8 units Insulin Detemir (Levemir Vial) 14 units SQ [facility] Last Admin: 05/31/18 22:00 Dose: 14 units Labetalol HCl 200 mg/ (Labetalol HCl 100 mg) 300 mg PO TID [facility] Last Admin: 06/01/18 06:25 Dose: 300 mg Levetiracetam (Keppra Injection -) 500 mg IVPB BID [facility] Last Admin: 06/01/18 10:37 Dose: 500 mg Lisinopril (Prinivil) 10 mg PEG DAILY [facility] Last Admin: 06/01/18 10:37 Dose: 10 mg Lorazepam (Ativan -) 0.5 mg PEG Q6H PRN PRN Reason: AGITATION Ondansetron HCl (Zofran Injection) 4 mg IVPUSH Q6H PRN PRN Reason: NAUSEA AND/OR VOMITING Pantoprazole Sodium (Protonix Iv) 40 mg IVPUSH DAILY [facility] Last Admin: 06/01/18 10:37 Dose: 40 mg - Objective Vital Signs: Vital Signs Temperature 97.8 F 06/01/18 10:00 Pulse Rate 100 H 06/01/18 10:00 Respiratory Rate 17 11/22/18 11:32 Blood Pressure 104/68 11/22/18 10:00 O2 Sat by Pulse Oximetry (%) 99 06/01/18 08:04 Cardiovascular: Yes: S1, S2 Respiratory: Yes: Mechanically Ventilated Gastrointestinal: Yes: Normal Bowel Sounds, Soft Labs: CBC, BMP 06/01/18 06:00 06/01/18 06:00 INR, PTT INR 1.17 (0.83-1.09) H 05/30/18 08:00 Problem List - Problems (1) Intracranial bleed Code(s): I62.9 - NONTRAUMATIC INTRACRANIAL HEMORRHAGE, UNSPECIFIED (2) Diabetes Code(s): E11.9 - TYPE 2 DIABETES MELLITUS WITHOUT COMPLICATIONS Qualifiers: Diabetes mellitus type: type 2 (3) HTN (hypertension) Code(s): I10 - ESSENTIAL (PRIMARY) HYPERTENSION (4) Respiratory failure Code(s): J96.90 - RESPIRATORY FAILURE, UNSP, UNSP W HYPOXIA OR HYPERCAPNIA Assessment/Plan - Problems (1) S/P craniotomy Assessment/Plan: on keppra for seizure s/p removal of thalamic mass Code(s): Z98.890 - OTHER SPECIFIED POSTPROCEDURAL STATES (2) Nutrition Assessment/Plan: s/peg start feeding Code(s): E87.0 - HYPEROSMOLALITY AND HYPERNATREMIA (3) Respiratory failure Assessment/Plan: failed multipel events at extubation s/p trach Procedure: 1. Percutaneous tracheostomy with #8 Shiley; 2. Bronchoscopy (performed by Dr. Gatica). Indication: Respiratory failure; Surgeon(s): Alex Wagner MD Code(s): J96.90 - RESPIRATORY FAILURE, UNSP, UNSP W HYPOXIA OR HYPERCAPNIA (4) Diabetes Assessment/Plan: seen by endo levemir and sliding scale Code(s): E11.9 - TYPE 2 DIABETES MELLITUS WITHOUT COMPLICATIONS Qualifiers: Diabetes mellitus type: type 2 (5) HTN (hypertension) Assessment/Plan: labetolol,norvasc,lisinopril Code(s): I10 - ESSENTIAL (PRIMARY) HYPERTENSION (6) Pneumonia Assessment/Plan: Microbiology 05/15/18 19:15 Sputum - Endotrachea Suction/Ventilator Gram Stain - Final 05/15/18 19:15 Sputum - Endotrachea Suction/Ventilator Sputum Culture - Final Mr S Aureus Klebsiella Pneumoniae Diphtheroid/Corynebacterium MRSA contact precautions,isolation [facility] Code(s): J18.9 - PNEUMONIA, UNSPECIFIED ORGANISM
[2018-06-01] MEDS: ATORVASTATIN CA 80 MG TABLET (FP) PEG SCH (21:52)
[2018-06-01] MEDS: INSULIN (LEVEMIR) 100 UNITS/ML UNITS SQ SCH (21:54)
[2018-06-02] MEDS: HEPARIN NA (PORCINE) 5,000 UNITS/ML 1ML VIAL SQ SCH (06:32)
[2018-06-02] MEDS ORDERED: LABETALOL HCL 100 MG TABLET (FP) ONE ×3 (06:34→21:31)
[2018-06-02] MEDS ORDERED: LABETALOL HCL 200 MG TABLET (FP) ONE ×3 (06:34→21:31)
[2018-06-02] MEDS: DOCUSATE NA 100 MG/10 ML UNIT-DOSE CUPS PO SCH ×3 (06:39→21:51)
[2018-06-02] MEDS: INSULIN SLIDING SCALE (NOVOLOG) 1 VIAL SQ SCH ×4 (06:39→21:54)
[2018-06-02] MEDS: LABETALOL HCL 200 MG, LABETALOL HCL 100 MG PO SCH ×3 (06:39→21:52)
[2018-06-02] MEDS ORDERED: PT OWN MED DRAWER 7, Y5N ONE (10:53)
[2018-06-02] MEDS ORDERED: INSULIN (NOVOLOG) ASPART 100 UNITS/ML 10ML VIAL ONE ×2 (10:54→21:31)
[2018-06-02] MEDS: ASPIRIN 81 MG CHEWABLE TABLETS PEG SCH (11:00)
[2018-06-02] MEDS: PANTOPRAZOLE SODIUM 40 MG VIAL IVPUSH SCH (11:00)
[2018-06-02] MEDS: BACITRACIN 15 GM TUBE TOPICAL OINTMENT TP SCH ×2 (11:00→22:09)
[2018-06-02] MEDS: levETIRAcetam 500 MG/5 ML INJECTION VIAL IVPB SCH (11:00)
[2018-06-02] MEDS: LISINOPRIL 10 MG TABLET (FP) PEG SCH (11:00)
[2018-06-02] MEDS: amLODIPine BESYLATE 10 MG TABLET (FP) PEG SCH (11:00)
--- NOTE | 2018-06-02 12:18 | DS ---
Physical Examination Vital Signs: Vital Signs Temperature 97.3 F L 06/02/18 10:00 Pulse Rate 91 H 06/02/18 10:11 Respiratory Rate 19 06/02/18 10:12 Blood Pressure 130/72 06/02/18 10:00 O2 Sat by Pulse Oximetry (%) 100 06/02/18 10:11 Constitutional: Yes: Other (parietal sutures) Neck: Yes: Other (trach) Cardiovascular: Yes: Regular Rate and Rhythm, S1, S2 Respiratory: Yes: CTA Bilaterally, Mechanically Ventilated Gastrointestinal: Yes: Normal Bowel Sounds, Soft, Other ( g tube) Renal/: Yes: Smith Present Labs: CBC, BMP 06/01/18 06:00 06/01/18 06:00 Discharge Summary Reason For Visit: INTRACRANIAL HEMORRHAGE, FALL Current Active Problems QI (acute kidney injury) (Acute) Afib (Acute) Diabetes (Acute) Dysphagia (Acute) Fall (Acute) HTN (hypertension) (Acute) Hypernatremia (Acute) Intracranial bleed (Acute) Pneumonia (Acute) Respiratory failure (Acute) S/P craniotomy (Acute) Sepsis (Acute) Procedures: Principal: left frontal craniotomy - excison of thalamic hemorrhagic mass. tracheostomy. g tube Hospital Course: HISTORY OF PRESENT ILLNESS: This is a 67 year old male, from [facility] with a significant past medical history of AFib (off of Warfarin for the past week), CVA (x3 last was a hemorrhagic stroke 1 week ago with right sided deficits), DM, Neuropathy. Who presents to the ED via EMS s/p fall. Patient is lethargic unable to provide HPI. Per the ED record: As per patients sister, he had a hemorrhagic stroke one week ago and was transferred from his care in [place], [place] to [facility]. While at the intermediate, patients sister notes he fell out of his wheelchair, hitting his head. While in the ED, the patient is behaving at his baseline, answering simple yes or no questions. ER course was notable for: (1) CT Head- small amount of acute blood within the occipital horn of the left ventricle. Several acute/subacute left occipital cortical infarcts noted medially, a right parieto-occipital cortical infarct seen medially may be subacute or chronic. No extra-axial fuid collection. no gross soft tissue mass lesion, no obstructive hydrocephalus (2) BUN 56, Cr 2 (3) Glucose 226 admitted in icu pneumonia on iv abx pneumococcal antigen positive completed iv abx thrombocytopenia s/p craniotomy on keppra bid now on med surg floor s/p g tube and s/p trach- failed multiple trial of extubation Condition: Guarded - Instructions Diet, Activity, Other Instructions: glucerna tube feeds Disposition: [facility] - Home Medications Comprehensive Discharge Medication List: Ambulatory Orders Acetaminophen 650 mg PO Q6H PRN 05/10/18 Albuterol 2.5/Ipratropium 0.5 [Duoneb -] 1 neb IH QID 05/10/18 Amlodipine Besylate [Norvasc -] 10 mg PO DAILY 05/10/18 Aspirin [Aspirin EC] 81 mg PO DAILY 05/10/18 Atorvastatin Ca [Lipitor] 80 mg PO HS 05/10/18 Calcium Carbonate [Calcium Antacid] 300 mg PO Q6H PRN 05/10/18 Chlorhexidine Gluconate [Peridex -] 15 ml MM BID 05/10/18 Docusate Sodium [Colace] 100 mg PO TID 05/10/18 Ferrous Sulfate 325 mg PO BID 05/10/18 Furosemide [Lasix] 40 mg PO DAILY 05/10/18 Insulin Glargine,Hum.rec.anlog [Lantus Solostar] 40 unit SQ HS 05/10/18 Insulin Lispro [Humalog] 0 unit SQ TIDCM PRN 05/10/18 Labetalol HCl 300 mg PO TID 05/10/18 Lisinopril [Prinivil] 20 mg PO DAILY 05/10/18 Magnesium Hydroxide [Milk of Magnesia] 30 ml PO HS PRN 05/10/18 Melatonin 3 mg PO HS PRN 05/10/18 Nicotine [Nicotine Patch 7 mg/24 hr] 1 each TD DAILY 05/10/18 Oxycodone HCl 5 mg PO Q4H PRN 05/10/18 Pantoprazole Sodium 40 mg PO DAILY 05/10/18 Polyethylene Glycol 3350 [Miralax (For Daily Use) -] 17 gm PO DAILY 05/10/18 Pregabalin [Lyrica -] 50 mg PO DAILY 05/10/18 Simethicone 80 mg PO QID PRN 05/10/18 Sodium Chloride [Saline Mist] 2 sprays NS BID 10/31/18 Tramadol HCl 50 mg PO Q6H PRN 05/10/18 Zinc Oxide 20% Topical Oint 0 gm NR BID 05/10/18
[2018-06-02] MEDS: RANITIDINE HCL 150 MG/10 ML UNIT-DOSE PO SCH ×2 (14:52→21:52)
--- NOTE | 2018-06-02 15:49 | PN ---
Progress Note, Physician History of Present Illness: Pt seen and examined at bedside. He remains on vent. - Current Medication List Current Medications: Active Medications Acetaminophen (Tylenol -) 650 mg PO Q6H PRN PRN Reason: FEVER Amlodipine Besylate (Norvasc -) 10 mg PEG DAILY [facility] Last Admin: 06/02/18 11:00 Dose: 10 mg Aspirin (Asa -) 81 mg PEG DAILY [facility] Last Admin: 06/02/18 11:00 Dose: 81 mg Atorvastatin Calcium (Lipitor -) 80 mg PEG HS [facility] Last Admin: 06/01/18 21:52 Dose: 80 mg Bacitracin (Bacitracin -) 1 applic TP BID [facility] Stop: 06/04/18 09:59 Last Admin: 06/02/18 11:00 Dose: 1 applic Docusate Sodium (Colace Liquid -) 100 mg PO TID [facility] Last Admin: 06/02/18 14:52 Dose: 100 mg Insulin Aspart (Novolog Vial Sliding Scale -) 1 vial SQ [facility]; Protocol Last Admin: 06/02/18 11:03 Dose: 6 units Insulin Detemir (Levemir Vial) 14 units SQ [facility] Last Admin: 06/01/18 21:54 Dose: 14 units Labetalol HCl 200 mg/ (Labetalol HCl 100 mg) 300 mg PO TID [facility] Last Admin: 06/02/18 14:52 Dose: 300 mg Levetiracetam (Keppra Oral Solution -) 500 mg GT BID [facility] Lisinopril (Prinivil) 10 mg PEG DAILY [facility] Last Admin: 06/02/18 11:00 Dose: 10 mg Lorazepam (Ativan -) 0.5 mg PEG Q6H PRN PRN Reason: AGITATION Ondansetron HCl (Zofran Injection) 4 mg IVPUSH Q6H PRN PRN Reason: NAUSEA AND/OR VOMITING Ranitidine HCl (Zantac Oral Solution -) 150 mg PO BID [facility] Last Admin: 06/02/18 14:52 Dose: 150 mg - Objective Vital Signs: Vital Signs Temperature 98.7 F 06/02/18 14:40 Pulse Rate 90 06/02/18 14:40 Respiratory Rate 18 06/02/18 14:40 Blood Pressure 115/70 06/02/18 14:40 O2 Sat by Pulse Oximetry (%) 99 06/02/18 14:32 Constitutional: Yes: Calm Neck: Yes: Other (trache) Cardiovascular: Yes: S1, S2 Respiratory: Yes: CTA Bilaterally Gastrointestinal: Yes: Normal Bowel Sounds, Soft Genitourinary: Yes: Smith Present Musculoskeletal: Yes: Muscle Weakness Edema: No Neurological: Yes: Lethargy Labs: CBC, BMP 06/01/18 06:00 06/01/18 06:00 INR, PTT INR 1.17 (0.83-1.09) H 05/30/18 08:00 Problem List - Problems (1) Hypernatremia Code(s): E87.0 - HYPEROSMOLALITY AND HYPERNATREMIA (2) QI (acute kidney injury) Code(s): N17.9 - ACUTE KIDNEY FAILURE, UNSPECIFIED (3) Diabetes Code(s): E11.9 - TYPE 2 DIABETES MELLITUS WITHOUT COMPLICATIONS Qualifiers: Diabetes mellitus type: type 2 Assessment/Plan Current Medications Generic Name Dose Route Start Last Admin Trade Name Freq PRN Reason Stop Dose Admin Acetaminophen 650 mg 05/30/18 13:38 Tylenol - PO Q6H PRN FEVER Amlodipine Besylate 10 mg 05/31/18 10:00 06/02/18 11:00 Norvasc - PEG 10 mg DAILY [facility] Administration Aspirin 81 mg 05/31/18 10:00 06/02/18 11:00 Asa - PEG 81 mg DAILY [facility] Administration Atorvastatin Calcium 80 mg 05/30/18 22:00 06/01/18 21:52 Lipitor - PEG 80 mg HS [facility] Administration Bacitracin 1 applic 05/30/18 22:00 06/02/18 11:00 Bacitracin - TP 06/04/18 09:59 1 applic BID [facility] Administration Docusate Sodium 100 mg 05/30/18 14:00 06/02/18 14:52 Colace Liquid - PO 100 mg TID [facility] Administration Insulin Aspart 1 vial 05/30/18 16:30 06/02/18 11:03 Novolog Vial Sliding Scale - SQ 6 units ACHS [facility] Administration Protocol Insulin Detemir 14 units 05/30/18 22:00 06/01/18 21:54 Levemir Vial SQ 14 units HS [facility] Administration Labetalol HCl 200 mg/ 300 mg 05/30/18 14:00 06/02/18 14:52 Labetalol HCl 100 mg PO 300 mg TID [facility] Administration Levetiracetam 500 mg 06/02/18 22:00 Keppra Oral Solution - GT BID [facility] Lisinopril 10 mg 05/31/18 10:00 06/02/18 11:00 Prinivil PEG 10 mg DAILY [facility] Administration Lorazepam 0.5 mg 05/30/18 12:10 Ativan - PEG Q6H PRN AGITATION Ondansetron HCl 4 mg 05/30/18 13:38 Zofran Injection IVPUSH Q6H PRN NAUSEA AND/OR VOMITING Ranitidine HCl 150 mg 06/02/18 12:30 06/02/18 14:52 Zantac Oral Solution - PO 150 mg BID [facility] Administration Impression 1. QI 2. hypernatremia 3. hemorrhagic CVA 4. DM 5. a-fib 6. Acute Respiratory Failure 7. s/p Left frontal craniotomy, excision of thalamic hermorrhagic mass 8. hyperkalemia Plan - no new labs - check bmp - pt tolerating feeds and free water - pt off of fluids - vent support - will follow Dr Davies
[2018-06-02 17:14] LABS: ANION GAP 5 MMOL/L (8-16); BLOOD UREA NITROGEN 35 mg/dL (7-18); CALCIUM 8.1 mg/dL (8.5-10.1); CHLORIDE 107 mmol/L (98-107); CO2 28 mmol/L (21-32); CREATININE 0.8 mg/dL (0.55-1.3); GLUCOSE,RANDOM 181 mg/dL (74-106); POTASSIUM 4.7 mmol/L (3.5-5.1); SODIUM 139 mmol/L (136-145)
[2018-06-02] MEDS: ATORVASTATIN CA 80 MG TABLET (FP) PEG SCH (21:51)
[2018-06-02] MEDS: levETIRAcetam 500 MG/5 ML ORAL SOLUTION (UNIT-DOSE CUPS) GT SCH (21:52)
[2018-06-02] MEDS: INSULIN (LEVEMIR) 100 UNITS/ML UNITS SQ SCH (21:53)
--- NOTE | 2018-06-02 22:50 | PN ---
Progress Note (short form) - Note Progress Note: Laboratory Tests 06/02/18 16:39 Sodium 139 Potassium 4.7 Chloride 107 Carbon Dioxide 28 BUN 35 H labs reviewed, will decrease free water. monitor lytes will follow prn Problem List - Problems (1) Hypernatremia Code(s): E87.0 - HYPEROSMOLALITY AND HYPERNATREMIA (2) QI (acute kidney injury) Code(s): N17.9 - ACUTE KIDNEY FAILURE, UNSPECIFIED (3) Diabetes Code(s): E11.9 - TYPE 2 DIABETES MELLITUS WITHOUT COMPLICATIONS Qualifiers: Diabetes mellitus type: type 2
[2018-06-03] MEDS ORDERED: LABETALOL HCL 100 MG TABLET (FP) ONE ×3 (05:56→21:39)
[2018-06-03] MEDS ORDERED: LABETALOL HCL 200 MG TABLET (FP) ONE ×3 (05:56→21:38)
[2018-06-03] MEDS: LABETALOL HCL 200 MG, LABETALOL HCL 100 MG PO SCH ×3 (06:13→22:12)
[2018-06-03] MEDS: DOCUSATE NA 100 MG/10 ML UNIT-DOSE CUPS PO SCH ×3 (06:13→22:11)
[2018-06-03] MEDS: INSULIN SLIDING SCALE (NOVOLOG) 1 VIAL SQ SCH ×4 (06:47→22:12)
[2018-06-03] MEDS ORDERED: PT OWN MED DRAWER 7, Y5N ONE (09:28)
[2018-06-03] MEDS: amLODIPine BESYLATE 10 MG TABLET (FP) PEG SCH (09:51)
[2018-06-03] MEDS: levETIRAcetam 500 MG/5 ML ORAL SOLUTION (UNIT-DOSE CUPS) GT SCH ×2 (09:51→22:11)
[2018-06-03] MEDS: RANITIDINE HCL 150 MG/10 ML UNIT-DOSE PO SCH ×2 (09:51→22:12)
[2018-06-03] MEDS: ASPIRIN 81 MG CHEWABLE TABLETS PEG SCH (09:51)
[2018-06-03] MEDS: LISINOPRIL 10 MG TABLET (FP) PEG SCH (09:51)
[2018-06-03] MEDS: BACITRACIN 15 GM TUBE TOPICAL OINTMENT TP SCH ×2 (09:51→22:11)
--- NOTE | 2018-06-03 11:52 | DS ---
Physical Examination Vital Signs: Vital Signs Temperature 97.8 F 06/03/18 06:00 Pulse Rate 92 H 06/03/18 06:00 Respiratory Rate 17 06/03/18 06:43 Blood Pressure 125/67 06/03/18 06:00 O2 Sat by Pulse Oximetry (%) 100 06/03/18 01:03 Cardiovascular: Yes: S1, S2 Respiratory: Yes: CTA Bilaterally, Mechanically Ventilated Gastrointestinal: Yes: Normal Bowel Sounds, Soft Labs: CBC, BMP 06/01/18 06:00 06/02/18 16:39 Discharge Summary Reason For Visit: INTRACRANIAL HEMORRHAGE, FALL Current Active Problems QI (acute kidney injury) (Acute) Afib (Acute) Diabetes (Acute) Dysphagia (Acute) Fall (Acute) HTN (hypertension) (Acute) Hypernatremia (Acute) Intracranial bleed (Acute) Pneumonia (Acute) Respiratory failure (Acute) S/P craniotomy (Acute) Sepsis (Acute) Hospital Course: This is a 67 year old male, from [facility] with a significant past medical history of AFib (off of Warfarin for the past week), CVA (x3 last was a hemorrhagic stroke 1 week ago with right sided deficits), DM, Neuropathy. Who presents to the ED via EMS s/p fall. Patient is lethargic unable to provide HPI. Per the ED record: As per patients sister, he had a hemorrhagic stroke one week ago and was transferred from his care in [place], [place] to [facility]. While at the [facility], patients sister notes he fell out of his wheelchair, hitting his head. While in the ED, the patient is behaving at his baseline, answering simple yes or no questions. ER course was notable for: (1) CT Head- small amount of acute blood within the occipital horn of the left ventricle. Several acute/subacute left occipital cortical infarcts noted medially, a right parieto-occipital cortical infarct seen medially may be subacute or chronic. No extra-axial fuid collection. no gross soft tissue mass lesion, no obstructive hydrocephalus (2) BUN 56, Cr 2 (3) Glucose 226 admitted to icu pneumonia on iv abx pneumococcal antigen positive completed iv abx thrombocytopenia s/p craniotomy on keppra bid now on med surg floor s/p g tube and s/p trach- failed multiple trial of extubation Condition: Guarded - Instructions Diet, Activity, Other Instructions: glucerna tube feeds Disposition: CARE HOME FACILITY - Home Medications Comprehensive Discharge Medication List: Ambulatory Orders Acetaminophen 650 mg PO Q6H PRN 05/10/18 Albuterol 2.5/Ipratropium 0.5 [Duoneb -] 1 neb IH QID 05/10/18 Amlodipine Besylate [Norvasc -] 10 mg PO DAILY 05/10/18 Aspirin [Aspirin EC] 81 mg PO DAILY 05/10/18 Atorvastatin Ca [Lipitor] 80 mg PO HS 05/10/18 Insulin Lispro [Humalog Kwikpen U-100] 0 unit SQ TIDCM PRN 05/10/18 Labetalol HCl 300 mg PO TID 05/10/18 Lisinopril [Prinivil] 20 mg PO DAILY 05/10/18 Pantoprazole Sodium 40 mg PO DAILY 05/10/18 Polyethylene Glycol 3350 [Miralax 119 gm Btl -] 17 gm PO DAILY 05/10/18 Docusate Sodium [Colace] 100 mg PEG TID #30 tab 06/02/18 Ferrous Sulfate 325 mg PEG BID #30 tab 06/02/18 Insulin (Levemir) [Levemir Vial] 14 units SQ HS units 06/02/18 Labetalol HCl [Normodyne -] 300 mg PO TID tablet 06/02/18 Pantoprazole Sodium [Protonix -] 40 mg PO DAILY tablet.ec 06/02/18 levETIRAcetam [Keppra Oral Solution -] 500 mg GT BID cup 06/02/18
--- NOTE | 2018-06-03 12:42 | PN ---
Progress Note (short form) - Note Progress Note: PULMONARY Vented, poorly responsive. Vital Signs Period Temp Pulse Resp BP Sys/Goel Pulse Ox Last 24 Hr 97.8 F-98.7 F 86-97 16-24 115-148/67-98 98-100 Gen: vented, poorly responsive Heart: RRR Lung: scattered rhonchi Abd: soft, nontender Ext: no edema CBC, BMP 06/01/18 06:00 06/02/18 16:39 Active Medications Acetaminophen (Tylenol -) 650 mg PO Q6H PRN PRN Reason: FEVER Amlodipine Besylate (Norvasc -) 10 mg PEG DAILY [facility] Last Admin: 06/03/18 09:51 Dose: 10 mg Aspirin (Asa -) 81 mg PEG DAILY [facility] Last Admin: 06/03/18 09:51 Dose: 81 mg Atorvastatin Calcium (Lipitor -) 80 mg PEG HS [facility] Last Admin: 06/02/18 21:51 Dose: 80 mg Bacitracin (Bacitracin -) 1 applic TP BID [facility] Stop: 06/04/18 09:59 Last Admin: 06/03/18 09:51 Dose: 1 applic Docusate Sodium (Colace Liquid -) 100 mg PO TID [facility] Last Admin: 06/03/18 06:13 Dose: 100 mg Insulin Aspart (Novolog Vial Sliding Scale -) 1 vial SQ [facility]; Protocol Last Admin: 06/03/18 06:47 Dose: 8 units Insulin Detemir (Levemir Vial) 14 units SQ [facility] Last Admin: 06/02/18 21:53 Dose: 14 units Labetalol HCl 200 mg/ (Labetalol HCl 100 mg) 300 mg PO TID [facility] Last Admin: 06/03/18 06:13 Dose: 300 mg Levetiracetam (Keppra Oral Solution -) 500 mg GT BID [facility] Last Admin: 06/03/18 09:51 Dose: 500 mg Lisinopril (Prinivil) 10 mg PEG DAILY [facility] Last Admin: 06/03/18 09:51 Dose: 10 mg Lorazepam (Ativan -) 0.5 mg PEG Q6H PRN PRN Reason: AGITATION Ondansetron HCl (Zofran Injection) 4 mg IVPUSH Q6H PRN PRN Reason: NAUSEA AND/OR VOMITING Ranitidine HCl (Zantac Oral Solution -) 150 mg PO BID [facility] Last Admin: 06/03/18 09:51 Dose: 150 mg A/P 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 Acute Hypoxic Respiratory Failure Pneumonia Left Atelectasis improved Sepsis Atrial Fibrillation Acute Kidney Injury DM/Hyperglycemia - chest PT, pulmonary toilet - continue albuterol/mucomyst - antiepileptics per neuro - glucose control - continue volume assist control - enteral feeds - DVT/GI prophylaxis
[2018-06-03] MEDS ORDERED: INSULIN (NOVOLOG) ASPART 100 UNITS/ML 10ML VIAL ONE (21:40)
[2018-06-03] MEDS: INSULIN (LEVEMIR) 100 UNITS/ML UNITS SQ SCH (22:12)
[2018-06-03] MEDS: ATORVASTATIN CA 80 MG TABLET (FP) PEG SCH (22:12)
[2018-06-04] MEDS ORDERED: LABETALOL HCL 200 MG TABLET (FP) ONE ×3 (05:35→21:56)
[2018-06-04] MEDS ORDERED: LABETALOL HCL 100 MG TABLET (FP) ONE ×3 (05:36→21:56)
[2018-06-04] MEDS: INSULIN SLIDING SCALE (NOVOLOG) 1 VIAL SQ SCH ×4 (06:03→22:42)
[2018-06-04] MEDS: LABETALOL HCL 200 MG, LABETALOL HCL 100 MG PO SCH ×3 (06:04→22:24)
[2018-06-04] MEDS: DOCUSATE NA 100 MG/10 ML UNIT-DOSE CUPS PO SCH ×3 (06:04→22:24)
[2018-06-04] MEDS ORDERED: PT OWN MED DRAWER 7, Y5N ONE ×2 (09:18→22:32)
--- NOTE | 2018-06-04 09:46 | DS ---
Physical Examination Vital Signs: Vital Signs Temperature 97.9 F 06/04/18 04:59 Pulse Rate 88 06/04/18 04:59 Respiratory Rate 16 06/04/18 07:12 Blood Pressure 122/74 06/04/18 04:59 O2 Sat by Pulse Oximetry (%) 99 06/03/18 22:00 Cardiovascular: Yes: S1, S2 Respiratory: Yes: Mechanically Ventilated Gastrointestinal: Yes: Normal Bowel Sounds, Soft, Other (peg) Labs: CBC, BMP 06/01/18 06:00 06/02/18 16:39 Discharge Summary Reason For Visit: INTRACRANIAL HEMORRHAGE, FALL Current Active Problems QI (acute kidney injury) (Acute) Afib (Acute) Diabetes (Acute) Dysphagia (Acute) Fall (Acute) HTN (hypertension) (Acute) Hypernatremia (Acute) Intracranial bleed (Acute) Pneumonia (Acute) Respiratory failure (Acute) S/P craniotomy (Acute) Sepsis (Acute) Hospital Course: This is a 67 year old male, from [facility] with a significant past medical history of AFib (off of Warfarin for the past week), CVA (x3 last was a hemorrhagic stroke 1 week ago with right sided deficits), DM, Neuropathy. Who presents to the ED via EMS s/p fall. Patient is lethargic unable to provide HPI. Per the ED record: As per patients sister, he had a hemorrhagic stroke one week ago and was transferred from his care in [place], [place] to [facility]. While at the long term, patients sister notes he fell out of his wheelchair, hitting his head. While in the ED, the patient is behaving at his baseline, answering simple yes or no questions. ER course was notable for: (1) CT Head- small amount of acute blood within the occipital horn of the left ventricle. Several acute/subacute left occipital cortical infarcts noted medially, a right parieto-occipital cortical infarct seen medially may be subacute or chronic. No extra-axial fuid collection. no gross soft tissue mass lesion, no obstructive hydrocephalus (2) BUN 56, Cr 2 (3) Glucose 226 admitted to icu pneumonia on iv abx pneumococcal antigen positive completed iv abx thrombocytopenia s/p craniotomy on keppra bid now on med surg floor s/p g tube and s/p trach- failed multiple trial of extubation Condition: Guarded - Instructions Diet, Activity, Other Instructions: glucerna tube feeds Disposition: [facility]ILITY - Home Medications Comprehensive Discharge Medication List: Ambulatory Orders Acetaminophen 650 mg PO Q6H PRN 05/10/18 Albuterol 2.5/Ipratropium 0.5 [Duoneb -] 1 neb IH QID 05/10/18 Amlodipine Besylate [Norvasc -] 10 mg PO DAILY 05/10/18 Aspirin [Aspirin EC] 81 mg PO DAILY 05/10/18 Atorvastatin Ca [Lipitor] 80 mg PO HS 05/10/18 Insulin Lispro [Humalog Kwikpen U-100] 0 unit SQ TIDCM PRN 05/10/18 Labetalol HCl 300 mg PO TID 05/10/18 Lisinopril [Prinivil] 20 mg PO DAILY 05/10/18 Pantoprazole Sodium 40 mg PO DAILY 05/10/18 Polyethylene Glycol 3350 [Miralax 119 gm Btl -] 17 gm PO DAILY 05/10/18 Docusate Sodium [Colace] 100 mg PEG TID #30 tab 06/02/18 Ferrous Sulfate 325 mg PEG BID #30 tab 06/02/18 Insulin (Levemir) [Levemir Vial] 14 units SQ HS units 06/02/18 Labetalol HCl [Normodyne -] 300 mg PO TID tablet 06/02/18 Pantoprazole Sodium [Protonix -] 40 mg PO DAILY tablet.ec 06/02/18 levETIRAcetam [Keppra Oral Solution -] 500 mg GT BID cup 06/02/18
[2018-06-04] MEDS: RANITIDINE HCL 150 MG/10 ML UNIT-DOSE PO SCH ×2 (10:00→22:24)
[2018-06-04] MEDS: ASPIRIN 81 MG CHEWABLE TABLETS PEG SCH (10:00)
[2018-06-04] MEDS: LISINOPRIL 10 MG TABLET (FP) PEG SCH (10:00)
[2018-06-04] MEDS: amLODIPine BESYLATE 10 MG TABLET (FP) PEG SCH (10:00)
[2018-06-04] MEDS: levETIRAcetam 500 MG/5 ML ORAL SOLUTION (UNIT-DOSE CUPS) GT SCH ×2 (10:00→22:46)
--- NOTE | 2018-06-04 13:09 | PN ---
Progress Note (short form) - Note Progress Note: PULMONARY Vented, poorly responsive. No fevers recorded. Vital Signs Period Temp Pulse Resp BP Sys/Goel Pulse Ox Last 24 Hr 97.9 F-99.5 F 88-96 16-23 116-134/66-74 99-99 Gen: vented, poorly responsive Heart: RRR Lung: scattered rhonchi Abd: soft, nontender Ext: no edema CBC, BMP 06/01/18 06:00 06/02/18 16:39 Active Medications Acetaminophen (Tylenol -) 650 mg PO Q6H PRN PRN Reason: FEVER Amlodipine Besylate (Norvasc -) 10 mg PEG DAILY [facility] Last Admin: 06/04/18 10:00 Dose: 10 mg Aspirin (Asa -) 81 mg PEG DAILY [facility] Last Admin: 06/04/18 10:00 Dose: 81 mg Atorvastatin Calcium (Lipitor -) 80 mg PEG HS [facility] Last Admin: 06/03/18 22:12 Dose: 80 mg Docusate Sodium (Colace Liquid -) 100 mg PO TID [facility] Last Admin: 06/04/18 06:04 Dose: 100 mg Insulin Aspart (Novolog Vial Sliding Scale -) 1 vial SQ [facility]; Protocol Last Admin: 06/04/18 11:27 Dose: 4 unit Insulin Detemir (Levemir Vial) 14 units SQ [facility] Last Admin: 06/03/18 22:12 Dose: 14 units Labetalol HCl 200 mg/ (Labetalol HCl 100 mg) 300 mg PO TID [facility] Last Admin: 06/04/18 06:04 Dose: 300 mg Levetiracetam (Keppra Oral Solution -) 500 mg GT BID [facility] Last Admin: 06/04/18 10:00 Dose: 500 mg Lisinopril (Prinivil) 10 mg PEG DAILY [facility] Last Admin: 06/04/18 10:00 Dose: 10 mg Lorazepam (Ativan -) 0.5 mg PEG Q6H PRN PRN Reason: AGITATION Ondansetron HCl (Zofran Injection) 4 mg IVPUSH Q6H PRN PRN Reason: NAUSEA AND/OR VOMITING Ranitidine HCl (Zantac Oral Solution -) 150 mg PO BID [facility] Last Admin: 06/04/18 10:00 Dose: 150 mg A/P 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 Acute Hypoxic Respiratory Failure Pneumonia Left Atelectasis improved Sepsis Atrial Fibrillation Acute Kidney Injury DM/Hyperglycemia - chest PT, pulmonary toilet - continue albuterol/mucomyst - antiepileptics - glucose control - continue volume assist control - enteral feeds - DVT/GI prophylaxis
[2018-06-04] MEDS ORDERED: INSULIN (NOVOLOG) ASPART 100 UNITS/ML 10ML VIAL ONE (21:57)
[2018-06-04] MEDS: ATORVASTATIN CA 80 MG TABLET (FP) PEG SCH (22:24)
[2018-06-04] MEDS: INSULIN (LEVEMIR) 100 UNITS/ML UNITS SQ SCH (22:25)
[2018-06-05] MEDS ORDERED: LABETALOL HCL 200 MG TABLET (FP) ONE ×2 (05:42→14:44)
[2018-06-05] MEDS ORDERED: LABETALOL HCL 100 MG TABLET (FP) ONE ×2 (05:43→14:45)
[2018-06-05] MEDS: LABETALOL HCL 200 MG, LABETALOL HCL 100 MG PO SCH ×2 (05:49→15:10)
[2018-06-05] MEDS: DOCUSATE NA 100 MG/10 ML UNIT-DOSE CUPS PO SCH ×2 (05:49→15:10)
[2018-06-05] MEDS: INSULIN SLIDING SCALE (NOVOLOG) 1 VIAL SQ SCH ×2 (06:08→11:15)
[2018-06-05] MEDS ORDERED: INSULIN (NOVOLOG) ASPART 100 UNITS/ML 10ML VIAL ONE (07:22)
[2018-06-05] MEDS ORDERED: PT OWN MED DRAWER 7, Y5N ONE (10:58)
[2018-06-05] MEDS: ASPIRIN 81 MG CHEWABLE TABLETS PEG SCH (10:58)
[2018-06-05] MEDS: RANITIDINE HCL 150 MG/10 ML UNIT-DOSE PO SCH (10:58)
[2018-06-05] MEDS: LISINOPRIL 10 MG TABLET (FP) PEG SCH (10:59)
[2018-06-05] MEDS: levETIRAcetam 500 MG/5 ML ORAL SOLUTION (UNIT-DOSE CUPS) GT SCH (10:59)
[2018-06-05] MEDS: amLODIPine BESYLATE 10 MG TABLET (FP) PEG SCH (10:59)
--- NOTE | 2018-06-05 11:57 | PN ---
Progress Note (short form) - Note Progress Note: Vented, poorly responsive. No fevers recorded. Some blood noted around Trach site this AM. Intake & Output 06/02/18 06/03/18 06/04/18 06/05/18 23:59 23:59 23:59 23:59 Intake Total 1612 1386 1400 Output Total 1050 1150 1325 400 Balance 562 236 -1325 1000 Last Vital Signs Temp Pulse Resp BP Pulse Ox 99.0 F 87 18 142/83 100 06/05/18 09:40 06/05/18 09:40 06/05/18 09:40 06/05/18 09:40 06/05/18 00:25 Active Medications Acetaminophen (Tylenol -) 650 mg PO Q6H PRN PRN Reason: FEVER Amlodipine Besylate (Norvasc -) 10 mg PEG DAILY [facility] Last Admin: 06/05/18 10:59 Dose: 10 mg Aspirin (Asa -) 81 mg PEG DAILY [facility] Last Admin: 06/05/18 10:58 Dose: 81 mg Atorvastatin Calcium (Lipitor -) 80 mg PEG HS [facility] Last Admin: 06/04/18 22:24 Dose: 80 mg Docusate Sodium (Colace Liquid -) 100 mg PO TID [facility] Last Admin: 06/05/18 05:49 Dose: 100 mg Insulin Aspart (Novolog Vial Sliding Scale -) 1 vial SQ [facility]; Protocol Last Admin: 06/05/18 11:15 Dose: 4 unit Insulin Detemir (Levemir Vial) 14 units SQ [facility] Last Admin: 06/04/18 22:25 Dose: 14 units Labetalol HCl 200 mg/ (Labetalol HCl 100 mg) 300 mg PO TID [facility] Last Admin: 06/05/18 05:49 Dose: 300 mg Levetiracetam (Keppra Oral Solution -) 500 mg GT BID [facility] Last Admin: 06/05/18 10:59 Dose: 500 mg Lisinopril (Prinivil) 10 mg PEG DAILY [facility] Last Admin: 06/05/18 10:59 Dose: 10 mg Lorazepam (Ativan -) 0.5 mg PEG Q6H PRN PRN Reason: AGITATION Ondansetron HCl (Zofran Injection) 4 mg IVPUSH Q6H PRN PRN Reason: NAUSEA AND/OR VOMITING Ranitidine HCl (Zantac Oral Solution -) 150 mg PO BID [facility] Last Admin: 06/05/18 10:58 Dose: 150 mg Gen: vented, poorly responsive Heart: RRR Lung: scattered rhonchi Abd: soft, nontender Ext: no edema Laboratory Results - last 24 hr 06/04/18 06/04/18 06/05/18 16:25 21:07 05:58 POC Glucometer 208 201 184 06/05/18 11:08 POC Glucometer 178 A/P 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 Acute Hypoxic Respiratory Failure Pneumonia Left Atelectasis improved Sepsis Atrial Fibrillation Acute Kidney Injury DM/Hyperglycemia - Periodic gauze change around Trach for local bleeding - BD TX - antiepileptics - continue volume assist control, not an ideal candidate for wean due to poor mental status - enteral feeds - DVT/GI prophylaxis - D/C planning to SNF Dr Gatica
--- NOTE | 2018-06-05 14:02 | PN ---
Progress Note, Physician Chief Complaint: patient awaitng to transfer to LTAP facility - Current Medication List Current Medications: Active Medications Acetaminophen (Tylenol -) 650 mg PO Q6H PRN PRN Reason: FEVER Amlodipine Besylate (Norvasc -) 10 mg PEG DAILY [facility] Last Admin: 06/05/18 10:59 Dose: 10 mg Aspirin (Asa -) 81 mg PEG DAILY [facility] Last Admin: 06/05/18 10:58 Dose: 81 mg Atorvastatin Calcium (Lipitor -) 80 mg PEG HS [facility] Last Admin: 06/04/18 22:24 Dose: 80 mg Docusate Sodium (Colace Liquid -) 100 mg PO TID [facility] Last Admin: 06/05/18 05:49 Dose: 100 mg Insulin Aspart (Novolog Vial Sliding Scale -) 1 vial SQ [facility]; Protocol Last Admin: 06/05/18 11:15 Dose: 4 unit Insulin Detemir (Levemir Vial) 14 units SQ [facility] Last Admin: 06/04/18 22:25 Dose: 14 units Labetalol HCl 200 mg/ (Labetalol HCl 100 mg) 300 mg PO TID [facility] Last Admin: 06/05/18 05:49 Dose: 300 mg Levetiracetam (Keppra Oral Solution -) 500 mg GT BID [facility] Last Admin: 06/05/18 10:59 Dose: 500 mg Lisinopril (Prinivil) 10 mg PEG DAILY [facility] Last Admin: 06/05/18 10:59 Dose: 10 mg Ondansetron HCl (Zofran Injection) 4 mg IVPUSH Q6H PRN PRN Reason: NAUSEA AND/OR VOMITING Ranitidine HCl (Zantac Oral Solution -) 150 mg PO BID [facility] Last Admin: 06/05/18 10:58 Dose: 150 mg - Objective Vital Signs: Vital Signs Temperature 99.0 F 06/05/18 09:40 Pulse Rate 85 06/05/18 12:15 Respiratory Rate 19 06/05/18 12:16 Blood Pressure 142/83 06/05/18 09:40 O2 Sat by Pulse Oximetry (%) 99 06/05/18 12:15 Constitutional: Yes: Calm Neck: Yes: Other (trach) Cardiovascular: Yes: Regular Rate and Rhythm, S1, S2 Respiratory: Yes: Mechanically Ventilated Gastrointestinal: Yes: Normal Bowel Sounds, Soft, Other (g tube) Labs: CBC, BMP 06/01/18 06:00 06/02/18 16:39 INR, PTT INR 1.17 (0.83-1.09) H 05/30/18 08:00 Problem List - Problems (1) S/P craniotomy Assessment/Plan: on keppra for seizure s/p removal of thalamic mass Code(s): Z98.890 - OTHER SPECIFIED POSTPROCEDURAL STATES (2) Hypernatremia Assessment/Plan: sodium is 142 on 06/01 new labs ordered today Code(s): E87.0 - HYPEROSMOLALITY AND HYPERNATREMIA (3) Respiratory failure Assessment/Plan: s/p trach Code(s): J96.90 - RESPIRATORY FAILURE, UNSP, UNSP W HYPOXIA OR HYPERCAPNIA (4) Diabetes Assessment/Plan: seen by myke cloud and sliding scale Code(s): E11.9 - TYPE 2 DIABETES MELLITUS WITHOUT COMPLICATIONS Qualifiers: Diabetes mellitus type: type 2 (5) HTN (hypertension) Assessment/Plan: labetolol,norvasc,lisinopril Code(s): I10 - ESSENTIAL (PRIMARY) HYPERTENSION (6) Pneumonia Code(s): J18.9 - PNEUMONIA, UNSPECIFIED ORGANISM Assessment/Plan dc to LTAP facility
[2018-06-05 14:53] LABS: ANION GAP 6 MMOL/L (8-16); BLOOD UREA NITROGEN 51 mg/dL (7-18); CALCIUM 8.2 mg/dL (8.5-10.1); CHLORIDE 102 mmol/L (98-107); CO2 29 mmol/L (21-32); CREATININE 0.8 mg/dL (0.55-1.3); GLUCOSE,RANDOM 187 mg/dL (74-106); POTASSIUM 4.8 mmol/L (3.5-5.1); SODIUM 137 mmol/L (136-145)
--- NOTE | 2018-06-05 15:06 | PN ---
Progress Note, Physician History of Present Illness: Pt seen and examined at bedside. No great change. Ordered stat bmp for today. - Current Medication List Current Medications: Active Medications Acetaminophen (Tylenol -) 650 mg PO Q6H PRN PRN Reason: FEVER Amlodipine Besylate (Norvasc -) 10 mg PEG DAILY [facility] Last Admin: 06/05/18 10:59 Dose: 10 mg Aspirin (Asa -) 81 mg PEG DAILY [facility] Last Admin: 06/05/18 10:58 Dose: 81 mg Atorvastatin Calcium (Lipitor -) 80 mg PEG HS [facility] Last Admin: 06/04/18 22:24 Dose: 80 mg Docusate Sodium (Colace Liquid -) 100 mg PO TID [facility] Last Admin: 06/05/18 05:49 Dose: 100 mg Insulin Aspart (Novolog Vial Sliding Scale -) 1 v[facility]; Protocol Last Admin: 06/05/18 11:15 Dose: 4 unit Insulin Detemir (Levemir Vial) 14 units SQ [facility] Last Admin: 06/04/18 22:25 Dose: 14 units Labetalol HCl 200 mg/ (Labetalol HCl 100 mg) 300 mg PO TID [facility] Last Admin: 06/05/18 05:49 Dose: 300 mg Levetiracetam (Keppra Oral Solution -) 500 mg GT BID [facility] Last Admin: 06/05/18 10:59 Dose: 500 mg Lisinopril (Prinivil) 10 mg PEG DAILY [facility] Last Admin: 06/05/18 10:59 Dose: 10 mg Ondansetron HCl (Zofran Injection) 4 mg IVPUSH Q6H PRN PRN Reason: NAUSEA AND/OR VOMITING Ranitidine HCl (Zantac Oral Solution -) 150 mg PO BID [facility] Last Admin: 06/05/18 10:58 Dose: 150 mg - Objective Vital Signs: Vital Signs Temperature 99.0 F 06/05/18 09:40 Pulse Rate 85 06/05/18 12:15 Respiratory Rate 19 06/05/18 12:16 Blood Pressure 142/83 06/05/18 09:40 O2 Sat by Pulse Oximetry (%) 99 06/05/18 12:15 Constitutional: Yes: Calm Cardiovascular: Yes: S1, S2 Respiratory: Yes: Mechanically Ventilated Gastrointestinal: Yes: Soft, Other (peg) Genitourinary: Yes: Smith Present Edema: No Neurological: Yes: Lethargy Labs: CBC, BMP 06/01/18 06:00 06/05/18 14:00 INR, PTT INR 1.17 (0.83-1.09) H 05/30/18 08:00 Problem List - Problems (1) Hypernatremia Code(s): E87.0 - HYPEROSMOLALITY AND HYPERNATREMIA (2) QI (acute kidney injury) Code(s): N17.9 - ACUTE KIDNEY FAILURE, UNSPECIFIED (3) Diabetes Code(s): E11.9 - TYPE 2 DIABETES MELLITUS WITHOUT COMPLICATIONS Qualifiers: Diabetes mellitus type: type 2 Assessment/Plan Current Medications Generic Name Dose Route Start Last Admin Trade Name Freq PRN Reason Stop Dose Admin Acetaminophen 650 mg 05/30/18 13:38 Tylenol - PO Q6H PRN FEVER Amlodipine Besylate 10 mg 05/31/18 10:00 06/05/18 10:59 Norvasc - PEG 10 mg DAILY [facility] Administration Aspirin 81 mg 05/31/18 10:00 06/05/18 10:58 Asa - PEG 81 mg DAILY [facility] Administration Atorvastatin Calcium 80 mg 05/30/18 22:00 06/04/18 22:24 Lipitor - PEG 80 mg HS [facility] Administration Docusate Sodium 100 mg 05/30/18 14:00 06/05/18 05:49 Colace Liquid - PO 100 mg TID [facility] Administration Insulin Aspart 1 vial 05/30/18 16:30 06/05/18 11:15 Novolog Vial Sliding Scale - SQ 4 unit ACHS [facility] Administration Protocol Insulin Detemir 14 units 05/30/18 22:00 06/04/18 22:25 Levemir Vial SQ 14 units HS [facility] Administration Labetalol HCl 200 mg/ 300 mg 05/30/18 14:00 06/05/18 05:49 Labetalol HCl 100 mg PO 300 mg TID [facility] Administration Levetiracetam 500 mg 06/02/18 22:00 06/05/18 10:59 Keppra Oral Solution - GT 500 mg BID [facility] Administration Lisinopril 10 mg 05/31/18 10:00 06/05/18 10:59 Prinivil PEG 10 mg DAILY [facility] Administration Ondansetron HCl 4 mg 05/30/18 13:38 Zofran Injection IVPUSH Q6H PRN NAUSEA AND/OR VOMITING Ranitidine HCl 150 mg 06/02/18 12:30 06/05/18 10:58 Zantac Oral Solution - PO 150 mg BID [facility] Administration Impression 1. QI 2. hypernatremia 3. hemorrhagic CVA 4. DM 5. a-fib 6. Acute Respiratory Failure 7. s/p Left frontal craniotomy, excision of thalamic hermorrhagic mass 8. hyperkalemia Plan - ordered and reviewed labs - decrease rate of free water with feeds - monitor lytes - vent support - will follow Dr Davies
[2018-06-05 15:23] VITALS: BP 108/55; PULSE 96; TEMP 98.2
--- NOTE | 2018-06-05 16:03 | PN ---
Progress Note (short form) - Note Progress Note: Pt s/p Left frontal craniotomy, excision of thalamic hermorrhagic mass on 05/11 for Thalamic hemorrhagic mass c/b acute respiratory failure now s/p g tube and trach. Pt seen for staple removal. Florian removed without issue. Pt tolerated well. Incision intact, no erythema or drainage. d/w attending Dr Kaur
== END 2018-06-05 17:45 | DRG 3 ==
LOC: JER 16:35 → JERBED 19:29 → J4W 05-11 03:53 → JICU 05-11 21:10 → J4S 05-12 22:17 → JICU 05-12 22:18 → J5S 05-30 13:23
PROVIDERS: ADMIT Family Medicine; ATTEND Family Medicine
PROC: 03HB3DZ Insertion of Intraluminal Device into Right Radial Artery, Percutaneous Approach (ICD-10-PCS; 2018-05-11)
PROC: 00C Central Nervous System and Cranial Nerves, Extirpation (ICD-10-PCS; principal; 2018-05-11 11:00)
PROC: 0DH67UZ Insertion of Feeding Device into Stomach, Via Natural or Artificial Opening (ICD-10-PCS; 2018-05-13)
PROC: 3E0G76Z Introduction of Nutritional Substance into Upper GI, Via Natural or Artificial Opening (ICD-10-PCS; 2018-05-13)
PROC: 5A1955Z Respiratory Ventilation, Greater than 96 Consecutive Hours (ICD-10-PCS; 2018-05-15)
PROC: 0CHY7BZ Insertion of Airway into Mouth and Throat, Via Natural or Artificial Opening (ICD-10-PCS; 2018-05-15)
PROC: 0B21XFZ Change Tracheostomy Device in Trachea, External Approach (ICD-10-PCS; 2018-05-29)
PROC: 0BJ08ZZ Inspection of Tracheobronchial Tree, Via Natural or Artificial Opening Endoscopic (ICD-10-PCS; 2018-05-29)
PROC: 0B113F4 Bypass Trachea to Cutaneous with Tracheostomy Device, Percutaneous Approach (ICD-10-PCS; 2018-05-30)
PROC: 0BJ08ZZ Inspection of Tracheobronchial Tree, Via Natural or Artificial Opening Endoscopic (ICD-10-PCS; 2018-05-30)
PROC: 0BH18EZ Insertion of Endotracheal Airway into Trachea, Via Natural or Artificial Opening Endoscopic (ICD-10-PCS; 2018-05-30)
PROC: 0DH63UZ Insertion of Feeding Device into Stomach, Percutaneous Approach (ICD-10-PCS; 2018-05-30)
DX: S06.350A Traumatic hemorrhage of left cerebrum without loss of consciousness, initial encounter (principal); G93.6 Cerebral edema; J13 Pneumonia due to Streptococcus pneumoniae; J96.90 Respiratory failure, unspecified, unspecified whether with hypoxia or hypercapnia; A41.9 Sepsis, unspecified organism; G81.91 Hemiplegia, unspecified affecting right dominant side; E87.0 Hyperosmolality and hypernatremia; N39.0 Urinary tract infection, site not specified; J98.11 Atelectasis; T17.890A Other foreign object in other parts of respiratory tract causing asphyxiation, initial encounter; T85.638A Leakage of other specified internal prosthetic devices, implants and grafts, initial encounter; W05.0XXA Fall from non-moving wheelchair, initial encounter; Y92.098 Other place in other non-institutional residence as the place of occurrence of the external cause; G51.0 Bell's palsy; I48.91 Unspecified atrial fibrillation; E11.40 Type 2 diabetes mellitus with diabetic neuropathy, unspecified; I10 Essential (primary) hypertension; R41.82 Altered mental status, unspecified; E87.5 Hyperkalemia; Y84.8 Other medical procedures as the cause of abnormal reaction of the patient, or of later complication, without mention of misadventure at the time of the procedure; Y92.230 Patient room in hospital as the place of occurrence of the external cause; D69.6 Thrombocytopenia, unspecified; I25.10 Atherosclerotic heart disease of native coronary artery without angina pectoris; Z95.2 Presence of prosthetic heart valve; Z95.1 Presence of aortocoronary bypass graft; R13.10 Dysphagia, unspecified
CPT/HCPCS: 31500; 36415; 36600; 70450-TC; 70551-TC; 71045-TC-FY; 76775-TC; 80048; 80053; 81003; 81015; 82570; 82803; 82947; 82962; 83036; 83605; 83735; 84100; 84300; 84484; 85025; 85027; 85610; 85730; 86850; 86900; 86901; 87040; 87070; 87077; 87086; 87186; 87205; 87899; 88307-TC; 88331-TC; 93005; 93010; 94002; 94640; 94660; 94760; 97161-GP; 99285-25; C1894; G0480; J0131; J1644; J7030